=== PATIENT | female | born 1945 | race Caucasian/White ===

== ENCOUNTER 2018-05-06 02:11 | Outpatient (CLI) | payer MEDICARE, BC, SELFPAY ==
[2018-05-06 10:44] LABS: HGB 12.7 g/dL (12.0-15.5); Mean Corp. HGB Concentration 32.6 g/dL (32.0-36.0); Mean Corpuscular Hemoglobin 30.4 pg (27.0-33.0); Mean Corpuscular Volume 93.3 fL (80-95); Mean Platelet Volume 9.7 fL (8.0-11.0); Platelet Count 253 x1000/uL (130-400); RBC 4.18 m/cumm (4.00-5.20); RBC Distribution Width 15.3 % (11.7-14.6)
[2018-05-06 11:05] LABS: Microalb ug/mg Crea 9.5 ug/mg Cr
[2018-05-06 11:45] LABS: ALT 32 U/L (12-78); AST 19 U/L (15-37); Alkaline Phosphatase 51 U/L (46-116); Anion Gap 9.2 mmol/L (3-11); BUN 16 mg/dL (7-18); Bilirubin, Total 0.4 mg/dL (0.2-1.0); CO2 29.8 mmol/L (21.0-32.0); Calcium 9.3 mg/dL (8.5-10.1); Chloride 102 mmol/L (98-107); Cholesterol 166 mg/dL (50-200); Glucose 95 mg/dL (70-100); HDL Cholesterol 50 mg/dL (40-60); LDL CHOLESTEROL 95 mg/dL (<100); Magnesium 1.9 mg/dL (1.8-2.4); Sodium 141 mmol/L (136-145); TSH (W/Ref FT4) 1.53 uIU/mL (0.358-3.74); Total Protein 6.9 g/dL (6.4-8.2); Triglyceride 138 mg/dL (30-150)
== END 2018-05-06 02:31 ==
PROVIDERS: PCP Family Medicine; Visit Provider Family Medicine
DX: D64.9 Anemia, unspecified (principal); E03.9 Hypothyroidism, unspecified; E11.9 Type 2 diabetes mellitus without complications; D75.1 Secondary polycythemia; I25.10 Atherosclerotic heart disease of native coronary artery without angina pectoris
CPT/HCPCS: 36415; 80053; 80061; 83721; 85027; 82043; 82570; 83036; 83735; 84443

== ENCOUNTER 2018-05-14 00:24 | Outpatient (CLI) | payer MEDICARE, BC, SELFPAY ==
--- NOTE | 2018-05-14 09:37 | DI.CT_ITS ---
SYMPTOM/DIAGNOSIS: ? ABD ABSCESS,LLQ, H/O ENDOMETRIAL CA, C54.[address]: CT scan of the abdomen and pelvis was performed following the uneventful administration of intravenous contrast material. The visualized lung bases show no acute abnormality. The liver, spleen, pancreas, gallbladder, bile ducts and adrenal glands are unremarkable. The kidneys show normal and symmetric enhancement. No suspicious solid renal mass or obstruction is seen. The urinary bladder is intact. The patient appears to be status post hysterectomy. The aorta is of normal caliber. No significant abdominal or pelvic adenopathy, ascites or pneumoperitoneum is seen. The bowel shows no evidence of obstruction or inflammation. No findings to suggest an acute appendicitis are present. Degenerative changes are seen in the spine. IMPRESSION: No acute abnormality.
[2018-05-14] MEDS: Omnipaque 350 MG/ML 50 ML BTL PO (11:17)
[2018-05-14] MEDS: Omnipaque 350 MG/ML 100 ML BTL IJ (11:17)
[2018-05-14] MEDS: Breeza Beverage 473 ML BTL PO ×2 (11:17→11:18)
--- NOTE | 2018-05-14 15:42 | DI.VRAD_ITS ---
EXAM: CT Abdomen and Pelvis With Contrast EXAM DATE/TIME: 05/14/2018 11:18 AM CLINICAL HISTORY: 72 years old, female; Signs and symptoms; Other: ? Abdomen abscess llq; Additional info: Oral and iv contrast. Biphasic protocol TECHNIQUE: Axial computed tomography images of the abdomen and pelvis with intravenous contrast. Coronal and sagittal reformatted images were created and reviewed. CONTRAST: 100 ml of omnipaque 350 administered intravenously. COMPARISON: No relevant prior studies available. FINDINGS: Lower thorax: Lung bases are clear. ABDOMEN: Liver: Normal. No mass. Gallbladder and bile ducts: Normal. No calcified stones. No ductal dilation. Pancreas: Normal. No ductal dilation. Spleen: Normal. No splenomegaly. Adrenals: Normal. No mass. Kidneys and ureters: Normal. No hydronephrosis. Stomach and bowel: Normal. No obstruction. No mucosal thickening. Appendix: No evidence of appendicitis. PELVIS: Bladder: Unremarkable as visualized. Reproductive: Unremarkable as visualized. ABDOMEN and PELVIS: Intraperitoneal space: Normal. No free air. No significant fluid collection. Bones/joints: No acute fracture. No dislocation. Soft tissues: Unremarkable. Vasculature: Atherosclerosis. Lymph nodes: Normal. No enlarged lymph nodes. IMPRESSION: No acute findings. Dictated and Authenticated by: Dayday Carter MD. Ordering:JeanieDOMiriJ Bry Prado MD
== END 2018-05-14 00:44 ==
PROVIDERS: PCP Family Medicine; Visit Provider Family Medicine
DX: C54.1 Malignant neoplasm of endometrium (principal); R10.32 Left lower quadrant pain
CPT/HCPCS: 74177; J3490; Q9967

== ENCOUNTER 2018-07-16 21:27 | Outpatient (REF) | payer MEDICARE, BC, SELFPAY ==
[2018-07-16 19:22] LABS: Bilirubin Negative (Negative); Blood Small (Negative); Clarity Clear; Glucose Negative (Negative); Ketones Negative (Negative); Leukocyte Esterase Trace (Negative); Nitrite Negative (Negative); Urobilinogen 0.2 EU/dL (Up TO 0.2)
[2018-07-16 19:29] LABS: Bacteria Negative HPF (Negative); C & S Indicated? Yes; Casts Negative LPF (Negative); Crystals Negative HPF (Negative); Epithelial Cells Negative HPF (Negative); Mucus Negative (Negative); Other Cells Few Renal (Negative)
== END 2018-07-16 21:47 ==
LOC: LBN 21:27
PROVIDERS: PCP Family Medicine; Visit Provider Family Medicine
DX: M54.5 Low back pain (principal)
CPT/HCPCS: 81003; 81015; 87086

== ENCOUNTER 2018-12-28 12:26 | Outpatient (CLI) | payer MEDICARE, BC, SELFPAY ==
--- NOTE | 2018-12-28 14:00 | DI.RAD_ITS ---
SYMPTOMS/DIAGNOSIS: COUGH, R05 PA AND LATERAL CHEST: The heart is not enlarged. There is minimal lingular scarring, unchanged from previous examinations. No pleural effusions seen. The lungs otherwise clear. CONCLUSION: No evidence of acute disease.
== END 2018-12-28 12:46 ==
PROVIDERS: PCP Family Medicine; Visit Provider Family Medicine
DX: R05 Cough (principal)
CPT/HCPCS: 71046

== ENCOUNTER 2019-02-24 21:06 | Outpatient (REF) | payer MEDICARE, BC, SELFPAY | END 2019-02-24 21:26 | LOC: LBN 21:06 | PROVIDERS: PCP Family Medicine; Visit Provider Family Medicine | DX: R05 Cough (principal) | CPT/HCPCS: 87070; 87205 ==

== ENCOUNTER 2019-05-06 00:52 | Outpatient (CLI) | payer MEDICARE, BC, SELFPAY ==
--- NOTE | 2019-05-06 12:32 | DI.CT_ITS ---
EXAM: CT SINUS WO CLINICAL HISTORY: chronic sinusitis J32.9 TECHNIQUE: Noncontrast COMPARISON: No exams were available for comparison FINDINGS: There is mild mucous retention at the floor of the left maxillary sinus. There is minimal mucosal th ickening at the floor of the right maxillary sinus. A small mucous retention cyst or polyp is seen a t the roof of the right maxillary sinus. There is a small amount of mucous retention within the left sphenoid sinus. The frontal and ethmoid sinuses and nasal cavity appear clear. No bony destruction is seen. The orbits are unremarkable. Mastoid air cells appear clear. No gross abnormalities seen in the brain. IMPRESSION: Mild chronic sinus disease.
== END 2019-05-06 01:12 ==
PROVIDERS: PCP Family Medicine; Visit Provider Family Medicine
DX: J32.9 Chronic sinusitis, unspecified (principal)
CPT/HCPCS: 70486

== ENCOUNTER 2019-05-20 01:10 | Outpatient (CLI) | payer MEDICARE, BC, SELFPAY ==
[2019-05-20 12:31] LABS: ALT 29 U/L (14-59); AST 15 U/L (15-37); Albumin 3.8 g/dL (3.4-5.0); Alkaline Phosphatase 48 U/L (46-116); Anion Gap 7.6 mmol/L (3-11); BUN 11 mg/dL (7-18); Bilirubin, Total 0.4 mg/dL (0.2-1.0); CO2 30.4 mmol/L (21.0-32.0); CREATININE 0.69 mg/dL (0.55-1.02); Calcium 8.9 mg/dL (8.5-10.1); Calculated LDL 84 mg/dL (<100); Chloride 105 mmol/L (98-107); Cholesterol 155 mg/dL (<200); Glucose 102 mg/dL (74-106); HDL Cholesterol 43 mg/dL (40-60); Potassium 3.7 mmol/L (3.5-5.1); Sodium 143 mmol/L (136-145); TSH (W/Ref FT4) 2.21 uIU/mL (0.36-3.74); Total Protein 6.3 g/dL (6.4-8.2); Triglyceride 143 mg/dL (<150)
[2019-05-20 12:32] LABS: Hemoglobin A1C 6.1 % (3.8-5.6)
== END 2019-05-20 01:30 ==
PROVIDERS: PCP Family Medicine; Visit Provider Physician Assistant
DX: C54.1 Malignant neoplasm of endometrium (principal); E03.9 Hypothyroidism, unspecified; E11.9 Type 2 diabetes mellitus without complications; E78.5 Hyperlipidemia, unspecified; I10 Essential (primary) hypertension; L40.9 Psoriasis, unspecified; Z01.30 Encounter for examination of blood pressure without abnormal findings
CPT/HCPCS: 36415; 80053; 80061; 83036; 84443

== ENCOUNTER 2019-11-12 08:47 | Outpatient (CLI) | payer MEDICARE, BC, SELFPAY ==
[2019-11-12 12:46] LABS: Hemoglobin A1C 5.7 % (3.8-5.6)
== END 2019-11-12 09:07 ==
PROVIDERS: PCP Family Medicine; Visit Provider Family Medicine
DX: E11.9 Type 2 diabetes mellitus without complications (principal)
CPT/HCPCS: 36415; 83036

== ENCOUNTER 2020-05-02 14:40 | Outpatient (REF) | payer MEDICARE, BC, SELFPAY ==
[2020-05-02 15:59] LABS: Bilirubin Negative (Negative); Blood Negative (Negative); Clarity Clear (Clear); Glucose Negative (Negative); Ketones Negative (Negative); Leukocyte Esterase Negative (Negative); Nitrite Negative (Negative); Urobilinogen 0.2 EU/dL (Up TO 0.2); pH 7.5 (5-8)
== END 2020-05-02 15:00 ==
LOC: LBO 14:40
PROVIDERS: PCP Family Medicine; Visit Provider Physician Assistant
DX: R31.9 Hematuria, unspecified (principal); N93.9 Abnormal uterine and vaginal bleeding, unspecified
CPT/HCPCS: 81003

== ENCOUNTER 2020-05-05 13:47 | Emergency (ER) | payer MEDICARE, BC, SELFPAY ==
[2020-05-05] VITALS (17 sets, daily range): BP systolic 120–153; BP diastolic 50–80; PULSE 61–88; RESP 13–24; TEMP 36.7–37.1; O2SAT 95–100
--- NOTE | 2020-05-05 13:45 | RT.EKG_ITS ---
APPROVED REPORT Exam: Resting ECG Patient Location: E HR:80 bpm ECG Measurements Heart Rate 80 AXIS GA 193 P 10 QRSd 98 QRS -32 QT 396 T 73 QTc 458 Conclusion Sinus rhythm. LVH with secondary repolarization abnormality
--- NOTE | 2020-05-05 14:15 | DI.RAD_ITS ---
EXAM: XR PORTABLE CHEST AP CLINICAL HISTORY: dizzy. TECHNIQUE: 2D digital imaging was performed. COMPARISON: CR XR CHEST 2V PA LATERAL from 12/28/2018 FINDINGS: Heart size is normal. The mediastinum is not widened. Lungs are clear. No infiltrates nor obvious pleural effusions. Chest leads in place. IMPRESSION: No acute pulmonary findings on this single AP portable view of the chest. DATA REPOSITORY: RADIATION DOSE DELIVERED:
[2020-05-05 14:31] LABS: Abs Immature Grans 0.03 10^3/uL (0.0-0.06); Absolute Basophil Count 0.03 10^3/uL (0.0-0.2); Absolute Eosinophil Count 0.17 10^3/uL (0.0-0.7); Absolute Monocyte Count 0.72 10^3/uL (0.1-0.8); Absolute Neutrophil Count 5.59 10^3/uL (1.2-6.7); Basophils % 0.3; Eosinophils % 1.9; HCT 37.5 % (36.0-46.0); HGB 12.1 g/dL (11.2-15.7); Immature Grans % 0.3; Lymphocytes % 25.2; MCH 30.3 pg (27.0-33.0); MCHC 32.3 % (32.0-36.0); MCV 93.8 fL (80-95); MPV 9.5 fL (8.0-11.0); Monocytes % 8.2; Neutrophils % 64.1; Nucleated RBC 0 %; Platelet Count 275 10^3/uL (130-400); RDW 14.7 % (11.7-14.6); RDW-SD 51.2 fL; WBC 8.74 10^3/uL (4.4-10.8)
--- NOTE | 2020-05-05 14:35 | ED.GENADUL_ITS ---
Discharge Plan Disposition Patient Disposition: AGAINST MEDICAL ADVICE Condition: Stable Discharge Details Clinical Impression: Headache, Acute hypokalemia Primary Care Provider: Eve Londono ED Provider: Lesa Thurman Home Meds and New Rx's Prescriptions: New potassium chloride 20 mEq packet 20 meq PO DAILY Qty: 30 RF: 0 potassium chloride 20 mEq tablet extended release 20 meq PO DAILY Qty: 10 RF: 0 No Action losartan 100 mg tablet 100 mg PO DAILY Qty: 90 RF: 4 fexofenadine [Preeti] 180 MG tablet 180 mg PO DAILY Qty: 90 RF: 4 acetaminophen [Tylenol Extra Strength] 500 MG tablet 1 tab PO DAILY PRNRF: 0 CPAP Each RF: 0 cyanocobalamin (vitamin B-12) [Vitamin B-12] 1,000 MCG tablet 1,000 mcg PO DAILY RF: 0 hydrocortisone valerate 45 GM cream 1 applic Topical BID prn Qty: 15 RF: 4 magnesium oxide 250 MG tablet 250 mg PO DAILY RF: 0 folic acid 0.4 MG tablet 0.4 mg PO DAILY RF: 0 Fiber Laxative (methylcellulo) 500 MG tablet 500 mg PO DAILY RF: 0 docusate sodium [Colace] 100 MG capsule 200 mg PO DAILY RF: 0 mupirocin calcium [Bactroban] 15 GM cream 15 gm Topical PRNRF: 0 FLUOCINONIDE 0.05% OINT 30 GM OINT...G. 1 applic Topical PRNRF: 0 nystatin-triamcinolone 100,000-0.1 unit/gram-% ointment 1 applic Topical BID prn Qty: 60 RF: 1 amlodipine 5 mg tablet 5 mg PO DAILY Qty: 90 RF: 4 hydrochlorothiazide 25 mg tablet 25 mg PO DAILY Qty: 90 RF: 4 simvastatin [Zocor] 20 mg tablet 20 mg PO QPM Qty: 90 RF: 4 fluticasone propionate 50 mcg/actuation spray,suspension 2 spray NS DAILY Qty: 1 RF: 3 levothyroxine [Synthroid] 25 mcg tablet 25 mcg PO DAILY Qty: 90 RF: 11 polyethylene glycol 3350 [Miralax] 17 GM powder in packet 1 packet PO Q48H PRNRF: 0 selenium 200 mcg Tablet 200 mcg PO DAILY RF: 0 megestrol 40 mg tablet 40 mg PO QID RF: 0 cholecalciferol (vitamin D3) [Vitamin D3] 10 mcg (400 unit) Tablet 10 mcg PO DAILY RF: 0 potassium gluconate 600 mg (99 mg) Tablet 600 mg PO DAILY RF: 0 Discharge Instructions Instructions: Hypokalemia (ED), General Headache (ED) Additional Instructions: You are leaving against our recommendation, my recommendation is that you follow-up with your primary care physician tomorrow and return earlier should he have return of symptoms or at your earliest ability You have not been fully evaluated in the emergency room Please take the potassium as prescribed and follow-up with your doctor regarding your low potassium levels, talk to your doctor also about the hydrochlorothiazide as it may be contributing to this I recommend you be reevaluated at your earliest convenience and return earlier should you have return or worsening complaints Medical Decision Making Unfortunately patient had a prolonged stay in the emergency room and her IV was unusual, several attempts were made to reinitiate peripheral line status, however patient declined any further intervention, she is aware that we cannot completely evaluate her headache and vision change, specifically we chatted about possible tumor, stroke, dissection, and other life-threatening pathologies that we are unable to rule out this time Patient is completely alert, oriented, of decisional capacity, quite pleasant in demeanor and states she will return immediately for reevaluation should her symptoms return or worsen She will follow up with her doctor tomorrow Given very low threshold to return to the emergency room Her potassium was supplemented with 2.9 mEq EKG does not show acute pathology She received 10 mEq of potassium and 40 mEq of p.o. potassium She was also given supplementation for home She is discharged home alert, oriented, of decision capacity, remainder of her diagnostic labs not show abnormality on her chest x-ray is clear per radiology interpretation I reviewed Lab Data Lab results reviewed: Yes I reviewed the patient's lab results. 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 Sharp headache which presented abruptly and resolved. Patient states she has had a few episodes in the past week. One was approximately 1 week ago by an episode that was similar but slightly worse today. She states the episode occurred approximately 145 and lasted about 5 minutes headache. She states that it presents as a crescendo pattern followed by blurred vision. She denies any strength or sensation changes or speech changes associated. She denies known history of cluster headaches or any sort of migraine variant. She denies any risk of carbon monoxide. She denies any dizziness or weakness. She did feel slightly nauseated when the episode occurred. She is completely asymptomatic at this time has been asymptomatic catheter now. She denies any fever or chills. She denies any cough, chest pain, shortness of breath. She denies any urinary component to her symptoms. She denies any new medications Bactrim negative but she resumed yesterday evening. She has history of TIA or CVA known to her. Denies known active cancer or metastases. General Date/Time Provider Initiated Documentation: 05/05/20 13:47 . Related Data Home Medications Medication Instructions Recorded Confirmed acetaminophen [Tylenol Extra 1 tab PO DAILY PRN 07/30/12 05/05/20 Strength] fexofenadine [Preeti] 180 mg PO DAILY #90 07/30/12 05/05/20 cyanocobalamin (vitamin B-12) 1,000 mcg PO DAILY 08/06/13 05/05/20 [Vitamin B-12] hydrocortisone valerate 1 applic TOPICAL BID prn #15 gm 08/16/14 05/05/20 magnesium oxide 250 mg PO DAILY 08/18/15 05/05/20 Fiber Laxative (methylcellulo) 500 mg PO DAILY 08/19/16 05/05/20 docusate sodium [Colace] 200 mg PO DAILY tab-cap 08/19/16 05/05/20 folic acid 0.4 mg PO DAILY tab-cap 08/19/16 05/05/20 polyethylene glycol 3350 [Miralax] 1 packet PO Q48H PRN 09/24/17 05/05/20 Fluocinonide 0.05% Oint 1 applic TOPICAL PRN gm 09/25/17 11/18/19 mupirocin calcium [Bactroban 2% 15 gm TOPICAL PRN 09/25/17 11/18/19 Cream] nystatin-triamcinolone 100,000 1 applic TOPICAL BID prn #60 gm 07/02/18 05/05/20 unit/gram-0.1 % topical ointment amlodipine 5 mg tablet 5 mg PO DAILY #90 tab 06/15/19 05/05/20 hydrochlorothiazide 25 mg tablet 25 mg PO DAILY #90 tab 07/05/19 05/05/20 simvastatin 20 mg tablet 20 mg PO QPM #90 tab-cap 07/05/19 05/05/20 fluticasone propionate 50 2 spray NS DAILY #1 ml 11/04/19 05/05/20 mcg/actuation nasal spray,suspension losartan 100 mg tablet 100 mg PO DAILY #90 tab 11/18/19 05/05/20 levothyroxine 25 mcg tablet 25 mcg PO DAILY #90 tab-cap 02/07/20 05/05/20 cholecalciferol (vitamin D3) 10 mcg PO DAILY 05/05/20 05/05/20 [Vitamin D3] megestrol 40 mg PO QID 05/05/20 05/05/20 potassium chloride 20 meq PO DAILY #10 tab 05/05/20 potassium chloride 20 meq PO DAILY #30 ea NS 05/05/20 potassium gluconate 600 mg PO DAILY 05/05/20 05/05/20 selenium 200 mcg PO DAILY 05/05/20 05/05/20 Previous Rx's Medication Instructions Recorded nystatin-triamcinolone 100,000 1 applic TOPICAL BID prn #60 gm 07/02/18 unit/gram-0.1 % topical ointment amlodipine 5 mg tablet 5 mg PO DAILY #90 tab 06/15/19 hydrochlorothiazide 25 mg tablet 25 mg PO DAILY #90 tab 07/05/19 simvastatin 20 mg tablet 20 mg PO QPM #90 tab-cap 07/05/19 fluticasone propionate 50 2 spray NS DAILY #1 ml 11/04/19 mcg/actuation nasal spray,suspension losartan 100 mg tablet 100 mg PO DAILY #90 tab 11/18/19 levothyroxine 25 mcg tablet 25 mcg PO DAILY #90 tab-cap 02/07/20 potassium chloride 20 meq PO DAILY #10 tab 05/05/20 potassium chloride 20 meq PO DAILY #30 ea NS 05/05/20 Allergies Allergy/AdvReac Type Severity Reaction Status Date / Time aspirin Allergy Severe HIVES Verified 11/18/19 14:26 NSAIDS (Non-Steroidal Allergy Severe HIVES Verified 11/18/19 14:26 Anti-Inflamma latex Allergy Intermediate redness Verified 11/18/19 14:26 enalapril AdvReac Severe SEVERE LEG Verified 11/18/19 14:26 PAIN lisinopril AdvReac cough Verified 11/18/19 14:26 General Stated Complaint: Dizzy/Sync RAYRAY: 2 Review of Systems Narrative: Review of systems negative x7 and negative specifically for acute headache, strength or sensation changes, vision abnormality, chest pain, nausea, vomiting All systems reviewed & are unremarkable except as noted in HPI and below PFSH Medical History (Updated 05/05/20 @ 17:57 by SUJEY Krishnamurthy) Abdominal abscess (07/29/16) Abnormal mammogram of right breast 09/04/15 cat3, [place] [facility] [place] meniscal injury of right knee (03/13/17) Colon polyp (07/12/02) adenomas polyps Elevated blood sugar level 08/19/16 Endometrial cancer, grade I (07/09/16) hysterectomy planned fro 07/15 at [facility] 07/16/16 S/P HYSTERECTOMY Essential hypertension (07/27/13) Hyperglycemia (08/19/16) Hyperlipidemia (07/31/12) Hypothyroidism (07/31/12) Migraine Migraine Obesity (08/12/14) Obstructive sleep apnea syndrome (07/30/11) uses CPAP Psoriasis UTI (urinary tract infection) Vitamin B 12 deficiency (08/03/14) Surgical History (Updated 11/16/18 @ 13:40 by Eve Londono MD, [place]) Appendectomy (~1982) Bilateral salpingectomy with oophorectomy (07/16/16) [facility] cystectomy (~1987) uterine History of bilateral ligation of fallopian tubes History of bilateral tubal ligation 04/21/82 Hysterectomy, Laproscopic (07/16/16) [facility] Ligation of fallopian tube (~1982) S/P appendectomy 04/21/82 Status post appendectomy Uterine fibroids removed (~1987) Family History (Updated 11/22/19 @ 13:32 by Jenna Guerrero) Mother , 76 Essential hypertension Heart disease Hyperlipidemia Myocardial infarction Father , 96 Essential hypertension Heart disease Hyperlipidemia Stroke Sister Essential hypertension Heart disease Stroke Brother , 59 Essential hypertension Heart disease Hyperlipidemia Brain cancer Brother Diabetes Essential hypertension Hyperlipidemia Brother Essential hypertension Brother Essential hypertension Hyperlipidemia Maternal Grandfather , 93 Heart disease Paternal Grandfather , 81 Essential hypertension Heart disease Maternal Grandmother , 54 Rheumatoid arthritis Paternal Grandmother , 80 Heart disease Social History (Updated 11/22/19 @ 13:29 by Jenna Guerrero) Smoking/Tobacco Use Status: Former Tobacco Use Quit Date: 04/21/78 Second Hand Exposure: Yes Smoking risk assessment performed?: Yes Alcohol Intake: current Alcohol Intake frequency: holidays/special occasions only Alcohol type: beer Drug use: Never Substance use type: does not use Caregiver/Support person: No Household members: spouse and children Housing: house Communication Needs: Hard of Hearing Do you need help understanding health information?: Never Pets and animals: No Sexually active: No Current gender identity: female and decline to answer What is your relationship status?: How often do you talk on the phone with friends or family?: decline to answer How often do you get together with friends or relatives?: decline to answer How often do you attend yazdanism or caodaism services?: decline to answer Do you belong to any clubs or organized social groups?: decline to answer Panel score (0-1 are the most socially isolated patients): 1 What type of physical activity do you participate in: none Porsche/Zoroastrianism: No preference Special porsche needs: No Seatbelt use: always Drive intox or ride w/intox 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: No Do you feel safe in your relationship?: Yes Exam Const General: healthy appearing and no acute distress Limitations: mental status not altered [facility] Head: normal to inspection Eyes General: appearance normal, both eyes and all related structures Pupils: PERRL EOM: EOM intact bilaterally Chest Chest: normal inspection of the chest Resp Effort & Inspection: normal respiratory effort Cardio Rate: regular rate Rhythm: regular rhythm GI Inspection: normal to inspection Other: Nontender Neuro General: patient alert, patient awake and patient oriented x3 Cranial Nerves: CN's II-XI intact bilaterally and PERRL Cognition: normal cognition Speech: speech normal Gait: normal gait Motor: strength 5/5 throughout Sensory Exam: no sensory deficits noted DTR's: Rt Biceps: 2+, Lt Biceps: 2+, Rt Patellar: 2+ and Lt Patellar: 2+ Coordination: [id number] test normal Pupils: Normal pupillary reactivity/response: bilateral Other: Negative pronator drift Course Vital Signs Vital signs: Vital Signs Temperature 37.1 C 05/05/20 13:55 Pulse 82 05/05/20 13:55 Respiratory Rate 17 05/05/20 13:55 Blood Pressure 153/57 H 05/05/20 13:55 Pulse Oximetry 99 05/05/20 13:55 Temperature 37.1 C 05/05/20 13:55 Temperature Source Skin 05/05/20 13:55 Pulse 82 05/05/20 13:55 Respiratory Rate 17 05/05/20 13:55 Respiratory Effort Non-Labored 05/05/20 14:28 Blood Pressure 153/57 H 05/05/20 13:55 Blood Pressure Position Sitting 05/05/20 13:55 Pulse Oximetry 99 05/05/20 13:55 Oxygen Delivery Method Room Air 05/05/20 13:55 Oxygen Flow Rate 0 05/05/20 13:55 Pain Level 0 05/05/20 13:55
[2020-05-05 14:49] LABS: ALT 37 U/L (14-59); AST 19 U/L (15-37); Albumin 4.2 g/dL (3.4-5.0); Alkaline Phosphatase 63 U/L (46-116); Anion Gap 8.8 mmol/L (3-11); BUN 13 mg/dL (7-18); Bilirubin, Total 0.4 mg/dL (0.2-1.0); CO2 28.2 mmol/L (21.0-32.0); CREATININE 0.84 mg/dL (0.55-1.02); Calcium 9.4 mg/dL (8.5-10.1); Chloride 102 mmol/L (98-107); Glucose 95 mg/dL (74-106); Magnesium 2.1 mg/dL (1.8-2.4); Sodium 139 mmol/L (136-145); TSH 1.76 uIU/mL (0.36-3.74); Total Protein 7.7 g/dL (6.4-8.2)
[2020-05-05 14:50] LABS: Potassium 2.9 mmol/L (3.5-5.1); Troponin I < 0.05 ng/mL (<0.06)
[2020-05-05] MEDS: Potassium Chloride 20 MEQ TABCR 40 MEQ PO (15:22)
--- NOTE | 2020-05-05 16:36 | DI.VRAD_ITS ---
PROCEDURE INFORMATION: Exam: XR Chest, 1 View Exam date and time: 05/05/2020 4:26 PM Age: 74 years old Clinical indication: Other: Dizzy TECHNIQUE: Imaging protocol: XR of the chest Views: 1 view. COMPARISON: CR XR CHEST 2V PA LATERAL 12/28/2018 1:48 PM FINDINGS: Tubes, catheters and devices: Overlying EKG wires Lungs: Unremarkable. No consolidation. Pleural space: Unremarkable. No pleural effusion. No pneumothorax. Heart/Mediastinum: Unremarkable. No cardiomegaly. Bones/joints: Unremarkable. IMPRESSION: No acute process Dictated and Authenticated by: Miko Owens MD. Ordering:MATTHEW Mcfadden MD
== END 2020-05-05 18:15 | disposition left against medical advice (07) ==
PROVIDERS: Emergency Provider Physician Assistant; PCP Family Medicine
DX: E87.6 Hypokalemia (principal); R51.9 Headache, unspecified; Z53.29 Procedure and treatment not carried out because of patient's decision for other reasons; I10 Essential (primary) hypertension
CPT/HCPCS: 36415; 80053; 93005; 99285; 71045; 83735; 84443; 84484; 85025; 93010; 99284

== ENCOUNTER 2020-05-26 01:17 | Outpatient (CLI) | payer MEDICARE, BC, SELFPAY ==
[2020-05-26 12:20] LABS: Anion Gap 14.3 mmol/L (3-11); BUN 13 mg/dL (7-18); CO2 24.7 mmol/L (21.0-32.0); CREATININE 0.8 mg/dL (0.55-1.02); Calcium 9.5 mg/dL (8.5-10.1); Chloride 102 mmol/L (98-107); Glucose 85 mg/dL (74-106); Potassium 3.5 mmol/L (3.5-5.1); Sodium 141 mmol/L (136-145)
[2020-05-26 12:52] LABS: Vitamin D 25 Total 29.4 ng/ml (30-100)
== END 2020-05-26 01:18 | disposition home or self-care (01) ==
LOC: LBO 01:18
PROVIDERS: PCP Family Medicine; Visit Provider Family Medicine
DX: E87.6 Hypokalemia (principal); E55.9 Vitamin D deficiency, unspecified
CPT/HCPCS: 36415; 80048; 82306

== ENCOUNTER 2020-08-14 04:26 | Outpatient (CLI) | payer MEDICARE, BC, SELFPAY ==
[2020-08-14 13:49] LABS: Anion Gap 11.1 mmol/L (3-11); BUN 14 mg/dL (7-18); CO2 26.9 mmol/L (21.0-32.0); CREATININE 0.9 mg/dL (0.55-1.02); Calcium 9.6 mg/dL (8.5-10.1); Chloride 104 mmol/L (98-107); Glucose 82 mg/dL (74-106); Sodium 142 mmol/L (136-145)
== END 2020-08-14 04:27 | disposition home or self-care (01) ==
LOC: LBO 04:26
PROVIDERS: PCP Family Medicine; Visit Provider Family Medicine
DX: I10 Essential (primary) hypertension (principal)
CPT/HCPCS: 36415; 80048

== ENCOUNTER 2020-10-02 12:12 | Outpatient (REF) | payer MEDICARE, BC, SELFPAY ==
[2020-10-02 12:50] LABS: Bilirubin Negative (Negative); Blood Negative (Negative); Clarity Clear (Clear); Glucose Negative (Negative); Ketones Negative (Negative); Leukocyte Esterase Negative (Negative); Nitrite Negative (Negative); Urobilinogen 0.2 EU/dL (Up TO 0.2)
== END 2020-10-02 12:13 | disposition home or self-care (01) ==
LOC: LBN 12:12
PROVIDERS: PCP Family Medicine; Visit Provider Physician Assistant
DX: R30.0 Dysuria (principal)
CPT/HCPCS: 81003

== ENCOUNTER 2020-10-10 19:25 | Outpatient (REF) | payer MEDICARE, BC, SELFPAY ==
[2020-10-10 21:10] LABS: Abs Immature Grans 0.04 10^3/uL (0.0-0.06); Absolute Basophil Count 0.06 10^3/uL (0.0-0.2); Absolute Eosinophil Count 0.17 10^3/uL (0.0-0.7); Absolute Lymphocyte Count 2.58 10^3/uL (1.2-3.4); Absolute Monocyte Count 0.78 10^3/uL (0.1-0.8); Absolute Neutrophil Count 6.44 10^3/uL (1.2-6.7); Basophils % 0.6; Eosinophils % 1.7; HCT 40.2 % (36.0-46.0); HGB 12.9 g/dL (11.2-15.7); Immature Grans % 0.4; Lymphocytes % 25.6; MCH 30.5 pg (27.0-33.0); MCHC 32.1 % (32.0-36.0); Monocytes % 7.7; Nucleated RBC 0 %; Platelet Count 350 10^3/uL (130-400); RBC 4.23 10^6/uL (3.93-5.22); RDW 14.6 % (11.7-14.6); RDW-SD 51.3 fL; WBC 10.07 10^3/uL (4.4-10.8)
[2020-10-10 21:39] LABS: D-Dimer 516 ng/mlFEU (<500)
== END 2020-10-10 19:26 | disposition home or self-care (01) ==
LOC: LBN 19:25
PROVIDERS: PCP Family Medicine; Visit Provider Nurse Practitioner Family
DX: M79.605 Pain in left leg (principal); E53.8 Deficiency of other specified B group vitamins
CPT/HCPCS: 85025; 85379

== ENCOUNTER 2020-10-11 10:17 | Emergency (ER) | payer MEDICARE, BC, SELFPAY ==
[2020-10-11] VITALS (14 sets, daily range): BP systolic 120–175; BP diastolic 66–100; PULSE 75–111; RESP 15–21; TEMP 36.5–36.7; O2SAT 96–98
--- NOTE | 2020-10-11 10:18 | ED.GENADUL_ITS ---
Discharge Plan Disposition Patient Disposition: HOME Condition: Stable Discharge Details Clinical Impression: Left knee pain Primary Care Provider: Eve Londono ED Provider: Rayna Larry Home Meds and New Rx's Prescriptions: Continued losartan 100 mg tablet 100 mg PO DAILY Qty: 90 RF: 4 fexofenadine [Preeti] 180 MG tablet 180 mg PO DAILY Qty: 90 RF: 4 acetaminophen [Tylenol Extra Strength] 500 MG tablet 1 tab PO DAILY PRNRF: 0 CPAP Each RF: 0 cyanocobalamin (vitamin B-12) [Vitamin B-12] 1,000 MCG tablet 1,000 mcg PO DAILY RF: 0 hydrocortisone valerate 45 GM cream 1 applic Topical BID prn Qty: 15 RF: 4 magnesium oxide 250 MG tablet 250 mg PO DAILY RF: 0 folic acid 0.4 MG tablet 0.4 mg PO DAILY RF: 0 Fiber Laxative (methylcellulo) 500 MG tablet 500 mg PO DAILY RF: 0 docusate sodium [Colace] 100 MG capsule 200 mg PO DAILY RF: 0 mupirocin calcium [Bactroban] 15 GM cream 15 gm Topical PRNRF: 0 FLUOCINONIDE 0.05% OINT 30 GM OINT...G. 1 applic Topical PRNRF: 0 nystatin-triamcinolone 100,000-0.1 unit/gram-% ointment 1 applic Topical BID prn Qty: 60 RF: 1 fluticasone propionate 50 mcg/actuation spray,suspension 2 spray NS DAILY Qty: 1 RF: 3 levothyroxine [Synthroid] 25 mcg tablet 25 mcg PO DAILY Qty: 90 RF: 11 amlodipine 10 mg tablet 10 mg PO DAILY Qty: 90 RF: 4 potassium chloride 20 mEq tablet extended release 20 meq PO BID Qty: 180 RF: 4 hydrochlorothiazide 25 mg tablet 25 mg PO DAILY Qty: 90 RF: 4 simvastatin [Zocor] 20 mg tablet 20 mg PO QPM Qty: 90 RF: 4 polyethylene glycol 3350 [Miralax] 17 GM powder in packet 1 packet PO Q48H PRNRF: 0 selenium 200 mcg Tablet 200 mcg PO DAILY RF: 0 megestrol 40 mg tablet 40 mg PO QID RF: 0 cholecalciferol (vitamin D3) [Vitamin D3] 10 mcg (400 unit) Tablet 10 mcg PO DAILY RF: 0 Discharge Instructions Instructions: Knee Pain (ED) Additional Instructions: Alternate ice and heat to the affected area(s) several times daily for 20 minutes at a time. Take Tylenol as needed directed for pain. 120 [place] Take the oxycodone for pain not relieved with Tylenol. Wear the Ovidio wrap as much as possible. Use your crutches as needed for help with weightbearing when ambulating. Follow-up with your primary care doctor in 1 week. Follow-up with orthopedics if your symptoms do not improve or worsen for consideration for further evaluation. Return to the emergency department with any worsening or new concerning symptoms. Referrals: Gus Singh MD [ [facility] STAFF PHYSICIAN] - Discharge Data Discharge Date/Time-TO BE ENTERED AT DEPARTURE: 10/11/20 15:02 Discharge Physician: Rayna Larry Medical Decision Making 75-year-old female presents with left posterior knee pain for the past week. Pain occurs only with weightbearing or walking. She has tenderness to palpation to her left posterior knee. No ligamentous laxity. No evidence of trauma or cellulitis. She is neurovascularly intact. Differential diagnosis includes knee strain versus effusion, bakers cyst. History and presentation does not appear consistent with dvt but will obtain a leg ultrasound and knee x-ray. A dose of oxycodone was ordered but patient states she drove herself to the ED and cannot get a ride so this was cancelled. Right knee x-ray notes a small joint effusion but no other acute findings. Right leg ultrasound negative for DVT or cyst. Discussed with patient that her symptoms could be due to strain or sprain. She is advised to alternate on the importance of RICE. An Ovidio wrap was placed. She has crutches for home as needed. She was given orthopedic follow-up information if needed. Usual and customary return precautions given prior to discharge. Medical Records Medical records reviewed: Yes I reviewed the patient's medical records. Imaging Data Radiologic Study: Radiologist's impression: XR KNEE LT 3V AP,LAT,DEENA CLINICAL HISTORY: posterior L knee pain, r/o arthritis. TECHNIQUE: 2D digital imaging was performed. COMPARISON: CR RIGHT KNEE COMPLETE from 03/13/2017 FINDINGS: There is no evidence of acute fracture. There appears to be a small joint effusion. No obvious degenerative changes. No evidence of chondrocalcinosis. No osteophytes. No joint narrowing evident on the weight-bearing view. No significant osseous lesions. IMPRESSION: No significant osseous findings. Small joint effusion. This may signify an internal derangement. US LOWER EXTREMITY VENOUS LT CLINICAL HISTORY: L posterior leg pain TECHNIQUE: Grayscale, color, and doppler imaging of the deep venous system of the left lower extremity was performed. COMPARISON: No exams were available for comparison FINDINGS: There is no evidence of intraluminal thrombus and there is normal compression and augmentation demonstrated within the common femoral vein, femoral vein, and popliteal vein. In the ipsilateral calf the interrogated veins also exhibit normal compression/ augmentation properties. The ipsilateral saphenofemoral junction is patent. IMPRESSION: 1. No evidence of DVT in the left lower extremity. 2. No abnormal fluid collection seen HPI General Mode of arrival: ambulatory . Date/Time Provider Initiated Documentation: 10/11/20 10:18 . Limitations to Documentation: no limitations . Information obtained by: patient . HPI Narrative: Patient is a 75-year-old female with a history of obesity, hypertension, hyperlipidemia, hypothyroidism, migraine and obstructive sleep apnea presents for left posterior knee pain for the past week. Patient states she went for a 3-hour drive just over 1 week ago and states the knee pain developed after that. She denies any known injury. She states the pain is absent at rest and mainly present with weightbearing or walking. She has taken Tylenol for pain without relief. She denies any pain in her left calf, hip or ankle. She was seen in urgent care yesterday and advised to come to the emergency department for ultrasound to rule out DVT. She states she also had back pain last month after cleaning her house for guests arriving but states this back pain has since been resolved and denies any at present. She denies any bowel or bladder incontinence, saddle anesthesia, leg weakness or numbness. Related Data Home Medications Medication Instructions Recorded Confirmed acetaminophen [Tylenol Extra 1 tab PO DAILY PRN 07/30/12 10/11/20 Strength] fexofenadine [Preeti] 180 mg PO DAILY #90 07/30/12 10/11/20 cyanocobalamin (vitamin B-12) 1,000 mcg PO DAILY 08/06/13 10/11/20 [Vitamin B-12] hydrocortisone valerate 1 applic TOPICAL BID prn #15 gm 08/16/14 10/11/20 magnesium oxide 250 mg PO DAILY 08/18/15 10/11/20 Fiber Laxative (methylcellulo) 500 mg PO DAILY 08/19/16 10/11/20 docusate sodium [Colace] 200 mg PO DAILY tab-cap 08/19/16 10/11/20 folic acid 0.4 mg PO DAILY tab-cap 08/19/16 10/11/20 polyethylene glycol 3350 [Miralax] 1 packet PO Q48H PRN 09/24/17 10/11/20 Fluocinonide 0.05% Oint 1 applic TOPICAL PRN gm 09/25/17 10/10/20 mupirocin calcium [Bactroban] 15 gm TOPICAL PRN 09/25/17 10/10/20 nystatin-triamcinolone 100,000 1 applic TOPICAL BID prn #60 gm 07/02/18 10/11/20 unit/gram-0.1 % topical ointment fluticasone propionate 50 2 spray NS DAILY #1 ml 11/04/19 10/11/20 mcg/actuation nasal spray,suspension losartan 100 mg tablet 100 mg PO DAILY #90 tab 11/18/19 10/11/20 levothyroxine 25 mcg tablet 25 mcg PO DAILY #90 tab-cap 02/07/20 10/11/20 cholecalciferol (vitamin D3) 10 mcg PO DAILY 05/05/20 10/11/20 [Vitamin D3] megestrol 40 mg PO QID 05/05/20 10/11/20 selenium 200 mcg PO DAILY 05/05/20 10/11/20 amlodipine 10 mg tablet 10 mg PO DAILY #90 tab 05/10/20 10/11/20 potassium chloride 20 mEq 20 meq PO BID #180 tab 05/10/20 10/11/20 tablet,extended release hydrochlorothiazide 25 mg tablet 25 mg PO DAILY #90 tab 09/26/20 10/11/20 simvastatin 20 mg tablet 20 mg PO QPM #90 tab-cap 09/26/20 10/11/20 Previous Rx's Medication Instructions Recorded nystatin-triamcinolone 100,000 1 applic TOPICAL BID prn #60 gm 07/02/18 unit/gram-0.1 % topical ointment fluticasone propionate 50 2 spray NS DAILY #1 ml 11/04/19 mcg/actuation nasal spray,suspension losartan 100 mg tablet 100 mg PO DAILY #90 tab 11/18/19 levothyroxine 25 mcg tablet 25 mcg PO DAILY #90 tab-cap 02/07/20 amlodipine 10 mg tablet 10 mg PO DAILY #90 tab 05/10/20 potassium chloride 20 mEq 20 meq PO BID #180 tab 05/10/20 tablet,extended release hydrochlorothiazide 25 mg tablet 25 mg PO DAILY #90 tab 09/26/20 simvastatin 20 mg tablet 20 mg PO QPM #90 tab-cap 09/26/20 Allergies Allergy/AdvReac Type Severity Reaction Status Date / Time aspirin Allergy Severe HIVES Verified 10/11/20 10:41 NSAIDS (Non-Steroidal Allergy Severe HIVES Verified 10/11/20 10:41 Anti-Inflamma latex Allergy Intermediate redness Verified 10/11/20 10:41 enalapril AdvReac Severe SEVERE LEG Verified 10/11/20 10:41 PAIN lisinopril AdvReac cough Verified 10/11/20 10:41 General RAYRAY: 2 Review of Systems All systems reviewed & are unremarkable except as noted in HPI and below Constitutional Constitutional: Reports as per HPI, Denies chills and Denies fever(s) Eyes Eyes: Denies blurry vision ENT Ears, Nose, Mouth, and Throat: Denies dizziness, Denies sore throat and Denies throat swelling Cardiovascular Cardiovascular: Denies chest pain and Denies dyspnea Respiratory Respiratory: Denies cough and Denies dyspnea Gastrointestinal Gastrointestinal: Denies abdominal pain, Denies diarrhea and Denies vomiting Genitourinary Genitourinary: Denies hematuria and Denies dysuria Musculoskeletal Musculoskeletal: Denies back pain and Denies numbness Integumentary/Breasts Skin/Breast: Denies lesions and Denies rash Neurologic Neurologic: Denies dizziness, Denies localized weakness and Denies numbness Allergic/Immunologic Allergic/Immunologic: Denies throat swelling [facility] Medical History Abdominal abscess (07/29/16) Abnormal mammogram of right breast 09/04/15 cat3, 6month f/u scheduled at [facility] Acute meniscal injury of right knee (03/13/17) Colon polyp (07/12/02) adenomas polyps Elevated blood sugar level 08/19/16 Endometrial cancer, grade I (07/09/16) hysterectomy planned fro 07/[address] [facility] 07/16/16 S/P HYSTERECTOMY Essential hypertension (07/27/13) Hyperglycemia (08/19/16) Hyperlipidemia (07/31/12) Hypothyroidism (07/31/12) Migraine Migraine Obesity (08/12/14) Obstructive sleep apnea syndrome (07/30/11) uses CPAP Psoriasis UTI (urinary tract infection) Vitamin B 12 deficiency (08/03/14) Surgical History (Updated 11/16/18 @ 13:40 by Eve Londono MD, [place]) Appendectomy (~1982) Bilateral salpingectomy with oophorectomy (07/16/16) [facility] cystectomy (~1987) uterine History of bilateral ligation of fallopian tubes History of bilateral tubal ligation 04/21/82 Hysterectomy, Laproscopic (07/16/16) [facility] Ligation of fallopian tube (~1982) S/P appendectomy 04/21/82 Status post appendectomy Uterine fibroids removed (~1987) Family History (Updated 11/22/19 @ 13:32 by Jenna Guerrero) Mother , 76 Essential hypertension Heart disease Hyperlipidemia Myocardial infarction Father , 96 Essential hypertension Heart disease Hyperlipidemia Stroke Sister Essential hypertension Heart disease Stroke Brother , 59 Essential hypertension Heart disease Hyperlipidemia Brain cancer Brother Diabetes Essential hypertension Hyperlipidemia Brother Essential hypertension Brother Essential hypertension Hyperlipidemia Maternal Grandfather , 93 Heart disease Paternal Grandfather , 81 Essential hypertension Heart disease Maternal Grandmother , 54 Rheumatoid arthritis Paternal Grandmother , 80 Heart disease Social History (Updated 11/22/19 @ 13:29 by Jenna Guerrero) Smoking/Tobacco Use Status: Former Tobacco Use Quit Date: 04/21/78 Second Hand Exposure: Yes Smoking risk assessment performed?: Yes Alcohol Intake: current Alcohol Intake frequency: holidays/special occasions only Alcohol type: beer Drug use: Never Substance use type: does not use Caregiver/Support person: No Household members: spouse and children Housing: house Communication Needs: Hard of Hearing Do you need help understanding health information?: Never Pets and animals: No Sexually active: No Current gender identity: female and decline to answer What is your relationship status?: How often do you talk on the phone with friends or family?: decline to answer How often do you get together with friends or relatives?: decline to answer How often do you attend alevism or confucianist services?: decline to answer Do you belong to any clubs or organized social groups?: decline to answer Panel score (0-1 are the most socially isolated patients): 1 What type of physical activity do you participate in: none Porsche/Holiness: No preference Special porsche needs: No Seatbelt use: always Drive intox or ride w/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: No Do you feel safe at home: Yes Do you feel safe in your relationship?: Yes Exam Const General: cooperative and no acute distress HENMT Head: normal to inspection Face and sinus: normal facial exam Eyes General: appearance normal, both eyes and all related structures EOM: EOM intact bilaterally Neck Neck: normal visual inspection and No submandibular swelling Lymphatic: no lymphadenopathy noted Chest Chest: normal inspection of the chest and no tenderness Resp Effort & Inspection: normal respiratory effort and able to speak in complete sentences Auscultation: clear to auscultation bilaterally Cardio Rate: regular rate Rhythm: regular rhythm GI Inspection: normal to inspection Palpation: soft, not firm, not rigid and nontender Auscultation: normal bowel sounds Skin General skin exam: no rashes or lesions noted Neuro General: patient alert, patient awake and patient oriented x3 Cognition: normal cognition Speech: speech normal Motor: muscle tone normal throughout Sensory Exam: no sensory deficits noted Extrem Other: L lower extremity: Tenderness to palpation to left posterior knee. There is no pain with valgus or varus stress. Negative anterior posterior drawer test. No tenderness palpation of left calf. There is no erythema, edema, ecchymosis, rash or lesions. Left DP/PT pulses intact. Negative Homans' sign. Psych Appearance: grossly normal Mental Status: mental status grossly normal Speech and Movement: speech and movement normal Affect: normal affect
--- NOTE | 2020-10-11 10:30 | DI.US_ITS ---
Exam(s) US LOWER EXTREMITY VENOUS LT EXAM: US LOWER EXTREMITY VENOUS LT CLINICAL HISTORY: L posterior leg pain TECHNIQUE: Grayscale, color, and doppler imaging of the deep venous system of the left lower extremi ty was performed. COMPARISON: No exams were available for comparison FINDINGS: There is no evidence of intraluminal thrombus and there is normal compression and augmentation demons trated within the common femoral vein, femoral vein, and popliteal vein. In the ipsilateral calf the interrogated veins also exhibit normal compression/ augmentation properti es. The ipsilateral saphenofemoral junction is patent. IMPRESSION: 1. No evidence of DVT in the left lower extremity. 2. No abnormal fluid collection seen DATA REPOSITORY:
--- NOTE | 2020-10-11 11:23 | DI.RAD_ITS ---
Exam(s) XR KNEE LT 3V AP,LAT,DEENA EXAM: XR KNEE LT 3V AP,LAT,DEENA CLINICAL HISTORY: posterior L knee pain, r/o arthritis. TECHNIQUE: 2D digital imaging was performed. COMPARISON: CR RIGHT KNEE COMPLETE from 03/13/2017 FINDINGS: There is no evidence of acute fracture. There appears to be a small joint effusion. No obvious dege nerative changes. No evidence of chondrocalcinosis. No osteophytes. No joint narrowing evident on the weight-bearing view. No significant osseous lesions. IMPRESSION: No significant osseous findings. Small joint effusion. This may signify an internal derangement. DATA REPOSITORY: RADIATION DOSE DELIVERED:
== END 2020-10-11 15:02 | disposition home or self-care (01) ==
PROVIDERS: Emergency Provider Physician Assistant; PCP Family Medicine
DX: M25.562 Pain in left knee (principal); M25.462 Effusion, left knee
CPT/HCPCS: 73562; 99284; 93971; 99285

== ENCOUNTER 2020-11-02 02:30 | Emergency (ER) | payer MEDICARE, BC, SELFPAY ==
[2020-11-02 02:34] VITALS: BP 171/88; PULSE 108; RESP 22; TEMP 36.5; O2SAT 98
[2020-11-02 02:52] LABS: Bilirubin Negative (Negative); Blood Moderate (Negative); Clarity Sl Cloudy (Clear); Glucose Negative (Negative); Ketones Negative (Negative); Leukocyte Esterase Small (Negative); Nitrite Positive (Negative); Specific Gravity >= 1.030 (1.005-1.025); Urobilinogen 0.2 EU/dL (Up TO 0.2); pH 6.5 (5-8)
--- NOTE | 2020-11-02 02:56 | W.ED.GENAD ---
Discharge Plan Disposition Patient Disposition: HOME Condition: Improving Discharge Details Clinical Impression: Acute UTI Primary Care Provider: Eve Londono ED Provider: Star Portillo Home Meds and New Rx's Prescriptions: New cephalexin 500 mg capsule 500 mg PO TID 5 Days Qty: 15 RF: 0 Continued losartan 100 mg tablet 100 mg PO DAILY Qty: 90 RF: 4 Flovent HFA 220 mcg/actuation HFA aerosol inhaler 1 puff inhalation BID PRNRF: 0 fexofenadine [Preeti] 180 MG tablet 180 mg PO DAILY Qty: 90 RF: 4 acetaminophen [Tylenol Extra Strength] 500 MG tablet 1 tab PO DAILY PRNRF: 0 CPAP Each RF: 0 cyanocobalamin (vitamin B-12) [Vitamin B-12] 1,000 MCG tablet 1,000 mcg PO DAILY RF: 0 hydrocortisone valerate 45 GM cream 1 applic Topical BID prn Qty: 15 RF: 4 magnesium oxide 250 MG tablet 250 mg PO DAILY RF: 0 folic acid 0.4 MG tablet 0.4 mg PO DAILY RF: 0 Fiber Laxative (methylcellulo) 500 MG tablet 500 mg PO DAILY RF: 0 docusate sodium [Colace] 100 MG capsule 200 mg PO DAILY RF: 0 mupirocin calcium [Bactroban] 15 GM cream 15 gm Topical PRNRF: 0 FLUOCINONIDE 0.05% OINT 30 GM OINT...G. 1 applic Topical PRNRF: 0 nystatin-triamcinolone 100,000-0.1 unit/gram-% ointment 1 applic Topical BID prn Qty: 60 RF: 1 fluticasone propionate 50 mcg/actuation spray,suspension 2 spray NS DAILY Qty: 1 RF: 3 levothyroxine [Synthroid] 25 mcg tablet 25 mcg PO DAILY Qty: 90 RF: 11 amlodipine 10 mg tablet 10 mg PO DAILY Qty: 90 RF: 4 potassium chloride 20 mEq tablet extended release 20 meq PO BID Qty: 180 RF: 4 hydrochlorothiazide 25 mg tablet 25 mg PO DAILY Qty: 90 RF: 4 simvastatin [Zocor] 20 mg tablet 20 mg PO QPM Qty: 90 RF: 4 polyethylene glycol 3350 [Miralax] 17 GM powder in packet 1 packet PO Q48H PRNRF: 0 selenium 200 mcg Tablet 200 mcg PO DAILY RF: 0 megestrol 40 mg tablet 40 mg PO QID RF: 0 cholecalciferol (vitamin D3) [Vitamin D3] 10 mcg (400 unit) Tablet 10 mcg PO DAILY RF: 0 Discharge Instructions Instructions: Urinary Tract Infection in Women (ED) Additional Instructions: Home to rest this evening. Small, frequent sips of fluids that she maintain good hydration. Take Pyridium today as provided. This may turn your urine bright orange. Keflex 4 times daily for the first 4 doses, then fill prescription and finish at 3 times daily. Return to the ER for any acute concerns. Medical Decision Making 75-year-old female presents from home with hours of urinary burning, frequency of urine. She has been tolerating liquids and solids by mouth, no elevated temperature. Her exam is reassuring. Most consistent with acute cystitis/UTI. Patient's urinalysis positive for nitrates and leuk esterase. Will place her on Pyridium, Keflex. She is stable and appropriate for outpatient management. HPI General Mode of arrival: ambulatory. Date/Time Provider Initiated Documentation: 11/02/20 02:50. Limitations to Documentation: no limitations. Information obtained by: patient. History of Present Illness 75 year old F presents to the emergency department with the chief complaint of Burning with urination, described as moderate and similar to prior episodes, Quality is described as dull, and is localized to the abdomen and pelvis. Patient reports no radiation. Patient started experiencing this hour(s) and it has been constant. No relieving factors improve symptom(s), No exacerbating factors reported . Patient notes other ([place] chilled at home). Patient did receive the following treatments prior to arrival, none Related Data Home Medications Medication Instructions Recorded Confirmed acetaminophen [Tylenol Extra 1 tab PO DAILY PRN 07/30/12 11/02/20 Strength] fexofenadine [Preeti] 180 mg PO DAILY #90 07/30/12 11/02/20 cyanocobalamin (vitamin B-12) 1,000 mcg PO DAILY 08/06/13 11/02/20 [Vitamin B-12] hydrocortisone valerate 1 applic TOPICAL BID prn #15 gm 08/16/14 11/02/20 magnesium oxide 250 mg PO DAILY 08/18/15 11/02/20 Fiber Laxative (methylcellulo) 500 mg PO DAILY 08/19/16 11/02/20 docusate sodium [Colace] 200 mg PO DAILY tab-cap 08/19/16 11/02/20 folic acid 0.4 mg PO DAILY tab-cap 08/19/16 11/02/20 polyethylene glycol 3350 [Miralax] 1 packet PO Q48H PRN 09/24/17 11/02/20 Fluocinonide 0.05% Oint 1 applic TOPICAL PRN gm 09/25/17 10/10/20 mupirocin calcium [Bactroban] 15 gm TOPICAL PRN 09/25/17 10/10/20 nystatin-triamcinolone 100,000 1 applic TOPICAL BID prn #60 gm 07/02/18 11/02/20 unit/gram-0.1 % topical ointment fluticasone propionate 50 2 spray NS DAILY #1 ml 11/04/19 11/02/20 mcg/actuation nasal spray,suspension losartan 100 mg tablet 100 mg PO DAILY #90 tab 11/18/19 11/02/20 levothyroxine 25 mcg tablet 25 mcg PO DAILY #90 tab-cap 02/07/20 11/02/20 cholecalciferol (vitamin D3) 10 mcg PO DAILY 05/05/20 11/02/20 [Vitamin D3] megestrol 40 mg PO QID 05/05/20 11/02/20 selenium 200 mcg PO DAILY 05/05/20 11/02/20 amlodipine 10 mg tablet 10 mg PO DAILY #90 tab 05/10/20 11/02/20 potassium chloride 20 mEq 20 meq PO BID #180 tab 05/10/20 11/02/20 tablet,extended release hydrochlorothiazide 25 mg tablet 25 mg PO DAILY #90 tab 09/26/20 11/02/20 simvastatin 20 mg tablet 20 mg PO QPM #90 tab-cap 09/26/20 11/02/20 fluticasone propionate 220 1 puff INHALATION BID PRN 10/17/20 11/02/20 mcg/actuation HFA aerosol inhaler cephalexin 500 mg PO TID 5 Days #15 cap 11/02/20 Previous Rx's Medication Instructions Recorded nystatin-triamcinolone 100,000 1 applic TOPICAL BID prn #60 gm 07/02/18 unit/gram-0.1 % topical ointment fluticasone propionate 50 2 spray NS DAILY #1 ml 07/16/20 mcg/actuation nasal spray,suspension losartan 100 mg tablet 100 mg PO DAILY #90 tab 11/18/19 levothyroxine 25 mcg tablet 25 mcg PO DAILY #90 tab-cap 02/07/20 amlodipine 10 mg tablet 10 mg PO DAILY #90 tab 05/10/20 potassium chloride 20 mEq 20 meq PO BID #180 tab 05/10/20 tablet,extended release hydrochlorothiazide 25 mg tablet 25 mg PO DAILY #90 tab 09/26/20 simvastatin 20 mg tablet 20 mg PO QPM #90 tab-cap 09/26/20 cephalexin 500 mg PO TID 5 Days #15 cap 11/02/20 Allergies Allergy/AdvReac Type Severity Reaction Status Date / Time aspirin Allergy Severe HIVES Verified 10/17/20 10:14 NSAIDS (Non-Steroidal Allergy Severe HIVES Verified 10/17/20 10:14 Anti-Inflamma latex Allergy Intermediate redness Verified 10/17/20 10:14 enalapril AdvReac Severe SEVERE LEG Verified 10/17/20 10:14 PAIN lisinopril AdvReac cough Verified 10/17/20 10:14 General Stated Complaint: Urinary RAYRAY: 4 Review of Systems Narrative: Urinary burning, frequency, urgency. No vomiting, no recent illness. 6 systems reviewed and otherwise negative [facility] Medical History Abdominal abscess (07/29/16) Abnormal mammogram of right breast 09/04/15 cat3, [place] [facility] [place] meniscal injury of right knee (03/13/17) Colon polyp (07/12/02) adenomas polyps Elevated blood sugar level 08/19/16 Endometrial cancer, grade I (07/09/16) hysterectomy planned fro 07/15 at [facility] 07/16/16 S/P HYSTERECTOMY Essential hypertension (07/27/13) Hyperglycemia (08/19/16) Hyperlipidemia (07/31/12) Hypothyroidism (07/31/12) Migraine Migraine Obesity (08/12/14) Obstructive sleep apnea syndrome (07/30/11) uses CPAP Psoriasis UTI (urinary tract infection) Vitamin B 12 deficiency (08/03/14) Surgical History Appendectomy (~1982) Bilateral salpingectomy with oophorectomy (07/16/16) [facility] cystectomy (~1987) uterine History of bilateral ligation of fallopian tubes History of bilateral tubal ligation 04/21/82 Hysterectomy, Laproscopic (07/16/16) [facility] Ligation of fallopian tube (~1982) S/P appendectomy 04/21/82 Status post appendectomy Uterine fibroids removed (~1987) Family History (Updated 11/22/19 @ 13:32 by Jenna Guerrero) Mother , 76 Essential hypertension Heart disease Hyperlipidemia Myocardial infarction Father , 96 Essential hypertension Heart disease Hyperlipidemia Stroke Sister Essential hypertension Heart disease Stroke Brother , 59 Essential hypertension Heart disease Hyperlipidemia Brain cancer Brother Diabetes Essential hypertension Hyperlipidemia Brother Essential hypertension Brother Essential hypertension Hyperlipidemia Maternal Grandfather , 93 Heart disease Paternal Grandfather , 81 Essential hypertension Heart disease Maternal Grandmother , 54 Rheumatoid arthritis Paternal Grandmother , 80 Heart disease Social History (Updated 11/22/19 @ 13:29 by Jenna Guerrero) Smoking/Tobacco Use Status: Former Tobacco Use Quit Date: 04/21/78 Second Hand Exposure: Yes Smoking risk assessment performed?: Yes Alcohol Intake: current Alcohol Intake frequency: holidays/special occasions only Alcohol type: beer Drug use: Never Substance use type: does not use Caregiver/Support person: No Household members: spouse and children Housing: house Communication Needs: Hard of Hearing Do you need help understanding health information?: Never Pets and animals: No Sexually active: No Current gender identity: female and decline to answer What is your relationship status?: How often do you talk on the phone with friends or family?: decline to answer How often do you get together with friends or relatives?: decline to answer How often do you attend jainism or zoroastrianism services?: decline to answer Do you belong to any clubs or organized social groups?: decline to answer Panel score (0-1 are the most socially isolated patients): 1 What type of physical activity do you participate in: none Porsche/Mormonism: No preference Special porsche needs: No Seatbelt use: always Drive intox or ride w/intox sweeper driver: No Do you feel safe at home: Yes Do you feel safe in your relationship?: Yes Exam Narrative Exam Narrative: GEN: awake, alert, oriented 3. Pleasant, well groomed, interactive. HEAD: Normocephalic, atraumatic EYES: PERRL, EOMI NECK: Full ROM, no KAYLA, no menigismus CHEST/RESP: Nontender, clear to auscultation bilateral, no wheeze/rhonchi/rales CARDIOVASCULAR: RRR, no murmur, rub corey. 2+ Rad pulse bilateral ABDOMEN: Soft, nontender, no mass. +Bowel sounds EXT: Full ROM, no edema, no rash Neuro: Grossly normal neurologic exam, conversant, interactive. Psych: Speech fluent, thoughts congruent, affect normal Course Vital Signs Vital signs: Vital Signs Temperature 36.5 C 11/02/20 02:34 Pulse 108 H 11/02/20 02:34 Respiratory Rate 22 11/02/20 02:34 Blood Pressure 171/88 H 11/02/20 02:34 Pulse Oximetry 98 11/02/20 02:34 Temperature 36.5 C 11/02/20 02:34 Temperature Source Temporal Artery Scan 11/02/20 02:34 Pulse 108 H 11/02/20 02:34 Respiratory Rate 22 11/02/20 02:34 Respiratory Effort Non-Labored 11/02/20 02:41 Blood Pressure 171/88 H 11/02/20 02:34 Pulse Oximetry 98 11/02/20 02:34 Oxygen Delivery Method Room Air 11/02/20 02:34 Oxygen Flow Rate 0 11/02/20 02:34 Pain Level 6 11/02/20 02:47
[2020-11-02 03:05] LABS: WBC >50 HPF (0-5)
[2020-11-02 03:06] LABS: C & S Indicated? Yes
[2020-11-02] MEDS: Phenazopyridine 100 MG TAB, 2 TABS/BTL PO (03:18)
[2020-11-02] MEDS: Cephalexin 500 MG CAP, 4 CAPS/BTL PO (03:18)
--- NOTE | 2020-11-06 08:18 | W.ED.FU ---
uti c micro + for ecli, sensitive to 1st gen cephalosporins, on keflex, no change
== END 2020-11-02 03:15 | disposition home or self-care (01) ==
PROVIDERS: Emergency Provider Emergency Medicine; PCP Family Medicine
DX: N39.0 Urinary tract infection, site not specified (principal)
CPT/HCPCS: 87077; 99283; 81003; 81015; 87086; 87186

== ENCOUNTER 2020-12-31 07:46 | Emergency (ER) | payer MEDICARE, BC, SELFPAY ==
--- NOTE | 2020-12-31 07:45 | RT.EKG_ITS ---
APPROVED REPORT Exam: Resting ECG Reason for Exam: high bp Patient Location: E HR:83 bpm ECG Measurements Heart Rate 83 AXIS FL 184 P 12 QRSd 93 QRS -38 QT 374 T 79 QTc 440 Conclusion Sinus rhythm. LVH with secondary repolarization abnormality.
[2020-12-31 07:55] VITALS: BP 153/79; PULSE 95; RESP 18; TEMP 36.5; O2SAT 98
--- NOTE | 2020-12-31 08:15 | DI.RAD_ITS ---
Exam(s) XR CHEST 2V PA LATERAL EXAM: XR CHEST 2V PA LATERAL CLINICAL HISTORY: CP TECHNIQUE: 2D digital imaging was performed. COMPARISON: CR,XR XR PORTABLE CHEST AP from 05/05/2020 FINDINGS: MEDIASTINUM: Normal. HEART: Within normal limits. PULMONARY VASCULATURE: Normal. LUNGS: Clear. PLEURAL SPACE: No pleural effusion or pneumothorax. BONE:Within normal limits for the patient's age. OTHER FINDINGS:Normal. IMPRESSION: No acute pulmonary findings. DATA REPOSITORY: RADIATION DOSE DELIVERED:
[2020-12-31 08:18] VITALS: BP 156/82; PULSE 85; RESP 16; O2SAT 97
--- NOTE | 2020-12-31 08:25 | W.ED.GENAD ---
Discharge Plan Disposition Patient Disposition: HOME Condition: Good Discharge Details Clinical Impression: Essential hypertension, Stress, Anxiety Primary Care Provider: Eve Londono ED Provider: Danitza Oliveira Home Meds and New Rx's Prescriptions: Continued losartan 100 mg tablet 100 mg PO DAILY Qty: 90 RF: 4 docusate sodium 250 mg capsule 500 mg PO DAILY RF: 0 cholecalciferol (vitamin D3) 25 mcg (1,000 unit) capsule 50 mcg PO DAILY RF: 0 bisacodyl 5 mg tablet 5 mg PO DAILY PRNRF: 0 fluocinonide 0.05 % cream 1 applic topical BID PRNRF: 0 hydrocortisone [Aquaphor Itch Relief] 1 % ointment 1 applic topical DAILY PRNRF: 0 mupirocin calcium 2 % cream 1 applic topical DAILY PRNRF: 0 Flovent HFA 220 mcg/actuation HFA aerosol inhaler 1 puff inhalation BID PRNRF: 0 fexofenadine [Preeti] 180 MG tablet 180 mg PO DAILY Qty: 90 RF: 4 acetaminophen [Tylenol Extra Strength] 500 MG tablet 1 tab PO DAILY PRNRF: 0 CPAP Each RF: 0 cyanocobalamin (vitamin B-12) [Vitamin B-12] 1,000 MCG tablet 1,000 mcg PO DAILY RF: 0 hydrocortisone valerate 45 GM cream 1 applic Topical BID prn Qty: 15 RF: 4 magnesium oxide 250 MG tablet 250 mg PO DAILY RF: 0 mupirocin calcium [Bactroban] 15 GM cream 15 gm Topical PRN PRNRF: 0 FLUOCINONIDE 0.05% OINT 30 GM OINT...G. 1 applic Topical PRNRF: 0 nystatin-triamcinolone 100,000-0.1 unit/gram-% ointment 1 applic Topical BID prn Qty: 60 RF: 1 fluticasone propionate 50 mcg/actuation spray,suspension 2 spray NS DAILY Qty: 1 RF: 3 levothyroxine [Synthroid] 25 mcg tablet 25 mcg PO DAILY Qty: 90 RF: 11 amlodipine 10 mg tablet 10 mg PO DAILY Qty: 90 RF: 4 potassium chloride 20 mEq tablet extended release 20 meq PO BID Qty: 180 RF: 4 hydrochlorothiazide 25 mg tablet 25 mg PO DAILY Qty: 90 RF: 4 simvastatin [Zocor] 20 mg tablet 20 mg PO QPM Qty: 90 RF: 4 folic acid 400 mcg tablet 0.8 mg PO DAILY RF: 0 selenium 200 mcg Tablet 200 mcg PO DAILY RF: 0 megestrol 40 mg tablet 40 mg PO QID RF: 0 Discharge Instructions Instructions: Hypertension (ED), Anxiety (ED) Additional Instructions: Your labs and imaging are reassuring here today. I am concerned that some of your elevation of your blood pressure may be associated with your stress and anxiety around having elevated blood pressure. Please try to reduce her stress. As discussed, please consider further obtaining a counselor. Please discuss this further with your primary care. Please stop checking her blood pressure for the time being unless she began having symptoms. Please try to increase your activity level as we discussed and take short walks outside daily. You may increase the length as tolerated. Please call your primary care provider tomorrow to schedule follow-up appointment in the next 1 to 2 weeks for reevaluation. If you develop recurrence of your chest pain, shortness of breath or other new/worsening symptom please seek care urgently once again. Referrals: Eve Londono MD, [place] [Primary Care Provider] - Discharge Data Discharge Date/Time-TO BE ENTERED AT DEPARTURE: 12/31/20 10:06 Medical Decision Making Patient is a pleasant 75-year-old female presenting today with chief complaint of elevated blood pressures. She reports that she had a 1 second sudden onset of chest discomfort in the left breast 1 week ago. Has not had any pain since then. No short of breath. States that she has been diaphoretic but believes this is associated with the weather. Has not had any nausea. Her primary concern is that since then she has been checking her blood pressures and that her systolic has been in the 150s. Patient does have a history of hypertension and is on hydrochlorothiazide which she is not yet taken this morning, losartan as well as amlodipine. Past medical history is also pertinent for endometrial cancer, hyperlipidemia, hypothyroidism, obesity, SHAMAR. Patient appears incredibly anxious. She begins crying when discussing her current social stressors. Her in March. She stated she had a large amount of stress leading up to his in August. Suffered injury from overuse while prepping for his . States that just now her pain is beginning to subside and she is planning on beginning to begin being more active again. Her daughter is currently living with her but is working throughout the day so she is typically alone. Sadly between the of her , her stretches of being alone as well as relative immobility, she is having difficulty with anxiety and stress. On exam, patient appears anxious but otherwise nontoxic. Normal cardiac auscultation. Lungs are clear. No lower extremity edema. Patient I discussed work-up. She did have a brief episode of chest discomfort as well as her large amount of anxiety around her elevated blood pressure, plan to obtain baseline labs including troponin, ECG and chest x-ray. I did also encourage that she focus more on her mental health including a counselor. We did discuss anxiety lytic. She would like to think about this and that further with her primary care. In regard to the blood pressure, she is 153/79 here which appears to be her baseline. Offered reassurance. Also advised that her being so nervous regarding her elevated blood pressure is likely causing it to elevate even further. I do not see evidence to suggest endorgan damage at this time. FINDINGS: Lungs: Unremarkable. No consolidation. Pleural spaces: Unremarkable. No pleural effusion. No pneumothorax. Heart/Mediastinum: Cardiac silhouette at the upper limits of normal in size, unchanged Vasculature: Aorta is tortuous Bones/joints: Unremarkable. IMPRESSION: Stable appearance of chest Labs reviewed. No leukocytosis. Stable H&H. No significant electrolyte abnormalities. Troponin within normal limits. Discussed these findings with the patient. She seems quite reassured. Her blood pressure is stable here. Advised that she is on multiple blood pressure medications and much of this has been stress-induced, she discuss this further with her primary care. I again encouraged her to consider counseling. Also discussed stressors traction technique. I advised that for the time being she will hold off on assessing her blood pressure as this seems to greatly increase her stress and is likely raising her blood pressure even higher. She will call Friday to schedule follow-up appointment. Return precautions were discussed. All her questions and concerns were addressed and she is agreement this plan HPI General Mode of arrival: ambulatory. Date/Time Provider Initiated Documentation: 12/31/20 07:59. Limitations to Documentation: no limitations. Information obtained by: patient and RN notes reviewed. History of Present Illness 75 year old F presents to the emergency department with the chief complaint of elevated blood pressure, described as moderate, Quality is described as other (states she had one brief episode of CP one week ago, no pain since), and is localized to the chest. Patient reports no radiation. Patient started experiencing this week(s) (1) and it has been constant (BP has been consistently elevated x 1wk). No relieving factors improve symptom(s), No exacerbating factors reported . Patient notes chest pain and diaphoresis (states she has been hot recently, states it is b/c of the weather); denies fever/chills, headaches, loss of appetite, nausea/vomiting, rash, shortness of breath and weakness. Patient did receive the following treatments prior to arrival, none Related Data Home Medications Medication Instructions Recorded Confirmed acetaminophen [Tylenol Extra 1 tab PO DAILY PRN 07/30/12 12/31/20 Strength] fexofenadine [Preeti] 180 mg PO DAILY #90 07/30/12 12/31/20 cyanocobalamin (vitamin B-12) 1,000 mcg PO DAILY 08/06/13 12/31/20 [Vitamin B-12] hydrocortisone valerate 1 applic TOPICAL BID prn #15 gm 08/16/14 12/31/20 magnesium oxide 250 mg PO DAILY 08/18/15 12/31/20 Fluocinonide 0.05% Oint 1 applic TOPICAL PRN gm 09/25/17 10/10/20 mupirocin calcium [Bactroban] 15 gm TOPICAL PRN PRN 09/25/17 12/31/20 nystatin-triamcinolone 100,000 1 applic TOPICAL BID prn #60 gm 07/02/18 12/31/20 unit/gram-0.1 % topical ointment fluticasone propionate 50 2 spray NS DAILY #1 ml 11/04/19 12/31/20 mcg/actuation nasal spray,suspension losartan 100 mg tablet 100 mg PO DAILY #90 tab 11/18/19 12/31/20 levothyroxine 25 mcg tablet 25 mcg PO DAILY #90 tab-cap 02/07/20 12/31/20 megestrol 40 mg PO QID 05/05/20 12/31/20 selenium 200 mcg PO DAILY 05/05/20 12/31/20 amlodipine 10 mg tablet 10 mg PO DAILY #90 tab 05/10/20 12/31/20 potassium chloride 20 mEq 20 meq PO BID #180 tab 05/10/20 12/31/20 tablet,extended release hydrochlorothiazide 25 mg tablet 25 mg PO DAILY #90 tab 09/26/20 12/31/20 simvastatin 20 mg tablet 20 mg PO QPM #90 tab-cap 09/26/20 12/31/20 fluticasone propionate 220 1 puff INHALATION BID PRN 10/17/20 12/31/20 mcg/actuation HFA aerosol inhaler bisacodyl 5 mg tablet 5 mg PO DAILY PRN tab 11/27/20 12/31/20 cholecalciferol (vitamin D3) 25 50 mcg PO DAILY cap 11/27/20 12/31/20 mcg (1,000 unit) capsule docusate sodium 250 mg capsule 500 mg PO DAILY cap 11/27/20 12/31/20 fluocinonide 0.05 % topical cream 1 applic TOPICAL BID PRN 11/27/20 12/31/20 folic acid 400 mcg tablet 0.8 mg PO DAILY tab-cap 11/27/20 12/31/20 hydrocortisone 1 % topical ointment 1 applic TOPICAL DAILY PRN g 11/27/20 12/31/20 mupirocin calcium 2 % topical cream 1 applic TOPICAL DAILY PRN g 11/27/20 12/31/20 Previous Rx's Medication Instructions Recorded nystatin-triamcinolone 100,000 1 applic TOPICAL BID prn #60 gm 07/02/18 unit/gram-0.1 % topical ointment fluticasone propionate 50 2 spray NS DAILY #1 ml 11/04/19 mcg/actuation nasal spray,suspension losartan 100 mg tablet 100 mg PO DAILY #90 tab 11/18/19 levothyroxine 25 mcg tablet 25 mcg PO DAILY #90 tab-cap 02/07/20 amlodipine 10 mg tablet 10 mg PO DAILY #90 tab 05/10/20 potassium chloride 20 mEq 20 meq PO BID #180 tab 05/10/20 tablet,extended release hydrochlorothiazide 25 mg tablet 25 mg PO DAILY #90 tab 09/26/20 simvastatin 20 mg tablet 20 mg PO QPM #90 tab-cap 09/26/20 Allergies Allergy/AdvReac Type Severity Reaction Status Date / Time aspirin Allergy Severe HIVES Verified 12/31/20 08:04 NSAIDS (Non-Steroidal Allergy Severe HIVES Verified 12/31/20 08:04 Anti-Inflamma latex Allergy Intermediate redness Verified 12/31/20 08:04 enalapril AdvReac Severe SEVERE LEG Verified 12/31/20 08:04 PAIN cetirizine [From yrte] AdvReac Knee pain Verified 12/31/20 08:04 lisinopril AdvReac cough Verified 12/31/20 08:04 General Stated Complaint: GenMedical RAYRAY: 3 Review of Systems Constitutional Constitutional: Reports as per HPI, Denies chills, Denies fever(s) and Denies headache(s) ENT Ears, Nose, Mouth, and Throat: Denies headache(s) Cardiovascular Cardiovascular: Reports as per HPI, Denies dyspnea and Denies dyspnea on exertion Respiratory Respiratory: Reports as per HPI, Denies chest congestion, Denies cough, Denies dyspnea and Denies dyspnea on exertion Gastrointestinal Gastrointestinal: Reports as per HPI, Denies abdominal pain, Denies diarrhea, Denies nausea and Denies vomiting Integumentary/Breasts Skin/Breast: Reports as per HPI and Denies rash Neurologic Neurologic: Reports as per HPI and Denies headache(s) Psychiatric Psychiatric: Reports as per HPI [facility] Medical History Abdominal abscess (07/29/16) Abnormal [place]ogram of right breast 09/04/15 [place]3, [place] [facility] [place] meniscal injury of right knee (03/13/17) Colon polyp (07/12/02) adenomas polyps Elevated blood sugar level 08/19/16 Endometrial cancer, grade I (07/09/16) hysterectomy planned fro 07/15 at [facility] 07/16/16 S/P HYSTERECTOMY Essential hypertension (07/27/13) Hyperglycemia (08/19/16) Hyperlipidemia (07/31/12) Hypothyroidism (07/31/12) Migraine Migraine Obesity (08/12/14) Obstructive sleep apnea syndrome (07/30/11) uses CPAP Psoriasis UTI (urinary tract infection) Vitamin B 12 deficiency (08/03/14) Surgical History Appendectomy (~1982) Bilateral salpingectomy with oophorectomy (07/16/16) [facility] cystectomy (~1987) uterine History of bilateral ligation of fallopian tubes History of bilateral tubal ligation 04/21/82 Hysterectomy, Laproscopic (07/16/16) [facility] Ligation of fallopian tube (~1982) S/P appendectomy 04/21/82 Status post appendectomy Uterine fibroids removed (~1987) Family History (Updated 11/22/19 @ 13:32 by Jenna Guererro) Mother , 76 Essential hypertension Heart disease Hyperlipidemia Myocardial infarction Father , 96 Essential hypertension Heart disease Hyperlipidemia Stroke Sister Essential hypertension Heart disease Stroke Brother , 59 Essential hypertension Heart disease Hyperlipidemia Brain cancer Brother Diabetes Essential hypertension Hyperlipidemia Brother Essential hypertension Brother Essential hypertension Hyperlipidemia Maternal Grandfather , 93 Heart disease Paternal Grandfather , 81 Essential hypertension Heart disease Maternal Grandmother , 54 Rheumatoid arthritis Paternal Grandmother , 80 Heart disease Social History Smoking/Tobacco Use Status: Former Tobacco Use Quit Date: 04/21/78 Tobacco: How many years used: 15 Second Hand Exposure: Yes Smoking risk assessment performed?: Yes Alcohol Intake: current Alcohol Intake frequency: holidays/special occasions only Caregiver/Support person: No Household members: children Communication Needs: None Do you need help understanding health information?: Never Pets and animals: No Current gender identity: female What is your relationship status?: Panel score (0-1 are the most socially isolated patients): 0 Seatbelt use: always Drive intox 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: No Do you feel safe at home: Yes Do you feel safe in your relationship?: Yes Exam Const General: cooperative, healthy appearing, comfortable, no acute distress, well developed and anxious Nutritional Appearance: well nourished and overweight Orientation: alert, awake and oriented x3 Resp Effort & Inspection: normal respiratory effort, able to speak in complete sentences and no respiratory distress Auscultation: clear to auscultation bilaterally, no rales, no rhonchi and no wheezes Cardio Rate: regular rate Rhythm: regular rhythm Heart Sounds: S1 normal and S2 normal GI Inspection: normal to inspection, no edema and non-distended Palpation: soft, no hepatosplenomegaly, not firm, no guarding, not rigid and nontender Auscultation: normal bowel sounds Skin General skin exam: no rashes or lesions noted Trauma: no lacerations or abrasions Neuro General: patient alert, patient awake and patient oriented x3 Cognition: normal cognition Speech: speech normal Gait: normal gait Extrem General: normal to inspection, capillary refill normal, no pedal edema, no calf tenderness, normal gait and other (2+ distal pulses) Psych Appearance: grossly normal and well kempt Mental Status: mental status grossly normal Speech and Movement: speech and movement normal Course Vital Signs Vital signs: Vital Signs Temperature 36.5 C 12/31/20 07:55 Pulse 95 H 12/31/20 07:55 Respiratory Rate 18 12/31/20 07:55 Blood Pressure 153/79 H 12/31/20 07:55 Pulse Oximetry 98 12/31/20 07:55 Temperature 36.5 C 12/31/20 07:55 Temperature Source Skin 12/31/20 07:55 Pulse 85 12/31/20 08:18 Respiratory Rate 16 12/31/20 08:18 Respiratory Effort Non-Labored 12/31/20 08:11 Blood Pressure 156/82 H 12/31/20 08:18 Blood Pressure Position Sitting 12/31/20 07:55 Pulse Oximetry 97 12/31/20 08:18 Oxygen Delivery Method Room Air 12/31/20 08:18 Oxygen Flow Rate 0 12/31/20 08:18 Pain Level 0 12/31/20 07:55
[2020-12-31] MEDS: hydroCHLOROthiazide 25 MG TAB PO (08:57)
[2020-12-31] MEDS: Normal Saline Flush 10 ML SYR IVP (08:57)
[2020-12-31 09:00] VITALS: RESP 16
[2020-12-31 09:10] LABS: Abs Immature Grans 0.03 10^3/uL (0.0-0.06); Absolute Basophil Count 0.03 10^3/uL (0.0-0.2); Absolute Eosinophil Count 0.15 10^3/uL (0.0-0.7); Absolute Lymphocyte Count 2.21 10^3/uL (1.2-3.4); Absolute Monocyte Count 0.68 10^3/uL (0.1-0.8); Absolute Neutrophil Count 4.32 10^3/uL (1.2-6.7); Basophils % 0.4; HCT 39.3 % (36.0-46.0); HGB 12.4 g/dL (11.2-15.7); Immature Grans % 0.4; Lymphocytes % 29.8; MCH 29.7 pg (27.0-33.0); MCHC 31.6 % (32.0-36.0); MCV 94.2 fL (80-95); MPV 9.2 fL (8.0-11.0); Monocytes % 9.2; Neutrophils % 58.2; Nucleated RBC 0 %; Platelet Count 307 10^3/uL (130-400); RBC 4.17 10^6/uL (3.93-5.22); RDW-SD 52.2 fL; WBC 7.42 10^3/uL (4.4-10.8)
[2020-12-31 09:15] LABS: Magnesium 2.3 mg/dL (1.8-2.4)
[2020-12-31 09:37] LABS: ALT 28 U/L (14-59); AST 11 U/L (15-37); Albumin 4.3 g/dL (3.4-5.0); Alkaline Phosphatase 64 U/L (46-116); Anion Gap 14.3 mmol/L (3-11); BUN 13 mg/dL (7-18); Bilirubin, Total 0.4 mg/dL (0.2-1.0); CO2 25.7 mmol/L (21.0-32.0); CREATININE 0.9 mg/dL (0.55-1.02); Calcium 9.2 mg/dL (8.5-10.1); Chloride 105 mmol/L (98-107); Glucose 90 mg/dL (74-106); Potassium 3.5 mmol/L (3.5-5.1); Sodium 145 mmol/L (136-145); Total Protein 7.8 g/dL (6.4-8.2)
--- NOTE | 2020-12-31 09:38 | DI.VRAD_ITS ---
PROCEDURE INFORMATION: Exam: XR Chest Exam date and time: 12/31/2020 8:23 AM Age: 75 years old Clinical indication: Other: High blood pressure, cp TECHNIQUE: Imaging protocol: XR of the chest. Views: 2 views. COMPARISON: CR XR PORTABLE CHEST AP 05/05/2020 4:13 PM FINDINGS: Lungs: Unremarkable. No consolidation. Pleural spaces: Unremarkable. No pleural effusion. No pneumothorax. Heart/Mediastinum: Cardiac silhouette at the upper limits of normal in size, unchanged Vasculature: Aorta is tortuous Bones/joints: Unremarkable. IMPRESSION: Stable appearance of chest Dictated and Authenticated by: Jane Sheets MD. Ordering:AQUILES Bosch MD
[2020-12-31 09:39] LABS: Troponin I < 0.05 ng/mL (<0.06)
== END 2020-12-31 10:06 | disposition home or self-care (01) ==
PROVIDERS: Emergency Provider Physician Assistant; PCP Family Medicine
DX: I10 Essential (primary) hypertension (principal); F41.9 Anxiety disorder, unspecified; F43.9 Reaction to severe stress, unspecified; R07.9 Chest pain, unspecified
CPT/HCPCS: 36415; 80053; 93005; 99284; 71046; 83735; 84484; 85025; 93010; 99283

== ENCOUNTER 2021-02-26 01:44 | Emergency (ER) | payer MEDICARE, BC, SELFPAY ==
[2021-02-26 01:55] VITALS: BP 175/82; PULSE 120; RESP 20; TEMP 36.7; O2SAT 98
[2021-02-26 02:02] LABS: Bilirubin Negative (Negative); Blood Moderate (Negative); Clarity Sl Cloudy (Clear); Glucose Negative (Negative); Ketones Negative (Negative); Leukocyte Esterase Moderate (Negative); Nitrite Negative (Negative); Urobilinogen 0.2 EU/dL (Up TO 0.2); pH 7.5 (5-8)
--- NOTE | 2021-02-26 02:04 | ED.GENADUL_ITS ---
Discharge Plan Disposition Patient Disposition: HOME Condition: Good Discharge Details Clinical Impression: Acute UTI Primary Care Provider: Eve Londono ED Provider: Xavier Azar Home Meds and New Rx's Prescriptions: New cephalexin 500 mg capsule 500 mg PO QID 7 Days Qty: 28 RF: 0 No Action levothyroxine [Synthroid] 25 mcg tablet 25 mcg PO DAILY Qty: 90 RF: 11 docusate sodium 250 mg capsule 500 mg PO DAILY RF: 0 cholecalciferol (vitamin D3) 25 mcg (1,000 unit) capsule 50 mcg PO DAILY RF: 0 bisacodyl 5 mg tablet 5 mg PO DAILY PRNRF: 0 fluocinonide 0.05 % cream 1 applic topical BID PRNRF: 0 hydrocortisone [Aquaphor Itch Relief] 1 % ointment 1 applic topical DAILY PRNRF: 0 mupirocin calcium 2 % cream 1 applic topical DAILY PRNRF: 0 Flovent HFA 220 mcg/actuation HFA aerosol inhaler 1 puff inhalation BID PRNRF: 0 fexofenadine [Preeti] 180 MG tablet 180 mg PO DAILY Qty: 90 RF: 4 acetaminophen [Tylenol Extra Strength] 500 MG tablet 1 tab PO DAILY PRNRF: 0 CPAP Each RF: 0 cyanocobalamin (vitamin B-12) [Vitamin B-12] 1,000 MCG tablet 1,000 mcg PO DAILY RF: 0 hydrocortisone valerate 45 GM cream 1 applic Topical BID prn Qty: 15 RF: 4 magnesium oxide 250 MG tablet 250 mg PO DAILY RF: 0 mupirocin calcium [Bactroban] 15 GM cream 15 gm Topical PRN PRNRF: 0 FLUOCINONIDE 0.05% OINT 30 GM OINT...G. 1 applic Topical PRNRF: 0 nystatin-triamcinolone 100,000-0.1 unit/gram-% ointment 1 applic Topical BID prn Qty: 60 RF: 1 amlodipine 10 mg tablet 10 mg PO DAILY Qty: 90 RF: 4 potassium chloride 20 mEq tablet extended release 20 meq PO BID Qty: 180 RF: 4 hydrochlorothiazide 25 mg tablet 25 mg PO DAILY Qty: 90 RF: 4 simvastatin [Zocor] 20 mg tablet 20 mg PO QPM Qty: 90 RF: 4 folic acid 400 mcg tablet 0.8 mg PO DAILY RF: 0 metoprolol succinate 25 mg tablet extended release 24 hr 25 mg PO DAILY Qty: 90 RF: 4 losartan 100 mg tablet 100 mg PO DAILY Qty: 90 RF: 4 fluticasone propionate 50 mcg/actuation spray,suspension 2 spray NS DAILY Qty: 16 RF: 3 selenium 200 mcg Tablet 200 mcg PO DAILY RF: 0 megestrol 40 mg tablet 40 mg PO QID RF: 0 Discharge Instructions Instructions: Urinary Tract Infection in Women (ED) Additional Instructions: If you have evidence of urinary tract infection, please take the antibiotic Keflex as directed. We have given you a small bottle here and we have sent a full prescription to your local pharmacy on file. Please drink plenty of fluids and take cranberry concentrate. If you notice any worsening of your symptoms, or any new symptoms such as vomiting, diarrhea, fever, chills, shortness of breath, chest pain, numbness, weakness, or fainting , please return immediately to the emergency department for reevaluation. Please follow up with your primary care provider as soon as possible for reassessment and reevaluation. As always, it was a pleasure participating in your medical care today. Referrals: Eve Londono MD, [place] [Primary Care Provider] - Medical Decision Making 75-year-old female with a past medical history of hypertension, endometrial cancer, hypothyroidism, obstructive sleep apnea, psoriasis, high cholesterol, who presents today for burning with urination for the last 2 to 3 hours. She denies any history of kidney stones. She denies any blood. She denies any vomiting or flank pain. No vaginal discharge. She has had urinary tract infections, and they felt similar to this. No other complaints time. No other modifying factors. Physical exam demonstrates no abdominal tenderness, no flank or CVA tenderness. We will check a UA for evaluation of potential UTI. Previous urinalysis from her last urinary tract infection did give evidence of E. coli that was pansensitive. Urinalysis shows some this shows evidence of urinary tract infection. Patient will be given a bottle of Keflex and a prescription for home use. Discussed red flags which to return. No evidence of pyelonephritis requiring admission. I have extensively reviewed the treatment plan and discharge instructions with the patient. I have addressed all patient concerns at this time. The patient was made aware of what symptoms to monitor for that would warrant a return to the emergency department. Discussed the plan with the patient, they demonstrate verbal understanding and agreement with our assessment and plan at this time. The documentation in this chart was dictated using [employer] dictation software. Please excuse any dictation errors. HPI General Date/Time Provider Initiated Documentation: 02/26/21 01:46 . HPI Narrative: 75-year-old female with a past medical history of hypertension, endometrial cancer, hypothyroidism, obstructive sleep apnea, psoriasis, high cholesterol, who presents today for burning with urination for the last 2 to 3 hours. She denies any history of kidney stones. She denies any blood. She denies any vomiting or flank pain. No vaginal discharge. She has had urinary tract infections, and they felt similar to this. No other complaints time. No other modifying factors. Related Data Home Medications Medication Instructions Recorded Confirmed acetaminophen [Tylenol Extra 1 tab PO DAILY PRN 07/30/12 01/11/21 Strength] fexofenadine [Preeti] 180 mg PO DAILY #90 07/30/12 01/11/21 cyanocobalamin (vitamin B-12) 1,000 mcg PO DAILY 08/06/13 01/11/21 [Vitamin B-12] hydrocortisone valerate 1 applic TOPICAL BID prn #15 gm 08/16/14 01/11/21 magnesium oxide 250 mg PO DAILY 08/18/15 01/11/21 Fluocinonide 0.05% Oint 1 applic TOPICAL PRN gm 09/25/17 01/11/21 mupirocin calcium [Bactroban] 15 gm TOPICAL PRN PRN 09/25/17 01/11/21 nystatin-triamcinolone 100,000 1 applic TOPICAL BID prn #60 gm 07/02/18 01/11/21 unit/gram-0.1 % topical ointment megestrol 40 mg PO QID 05/05/20 01/11/21 selenium 200 mcg PO DAILY 05/05/20 01/11/21 amlodipine 10 mg tablet 10 mg PO DAILY #90 tab 05/10/20 01/11/21 potassium chloride 20 mEq 20 meq PO BID #180 tab 05/10/20 01/11/21 tablet,extended release hydrochlorothiazide 25 mg tablet 25 mg PO DAILY #90 tab 09/26/20 01/11/21 simvastatin 20 mg tablet 20 mg PO QPM #90 tab-cap 09/26/20 01/11/21 fluticasone propionate 220 1 puff INHALATION BID PRN 10/17/20 01/11/21 mcg/actuation HFA aerosol inhaler bisacodyl 5 mg tablet 5 mg PO DAILY PRN tab 11/27/20 01/11/21 cholecalciferol (vitamin D3) 25 50 mcg PO DAILY cap 11/27/20 01/11/21 mcg (1,000 unit) capsule docusate sodium 250 mg capsule 500 mg PO DAILY cap 11/27/20 01/11/21 fluocinonide 0.05 % topical cream 1 applic TOPICAL BID PRN 11/27/20 01/11/21 folic acid 400 mcg tablet 0.8 mg PO DAILY tab-cap 11/27/20 01/11/21 hydrocortisone 1 % topical ointment 1 applic TOPICAL DAILY PRN g 11/27/20 01/11/21 mupirocin calcium 2 % topical cream 1 applic TOPICAL DAILY PRN g 11/27/20 01/11/21 levothyroxine 25 mcg tablet 25 mcg PO DAILY #90 tab-cap 01/11/21 01/11/21 metoprolol succinate 25 mg 25 mg PO DAILY #90 tab 01/11/21 tablet,extended release 24 hr losartan 100 mg tablet 100 mg PO DAILY #90 tab 01/29/21 fluticasone propionate 50 2 spray NS DAILY #16 g 02/09/21 mcg/actuation nasal spray,suspension cephalexin 500 mg PO QID 7 Days #28 cap 02/26/21 Previous Rx's Medication Instructions Recorded nystatin-triamcinolone 100,000 1 applic TOPICAL BID prn #60 gm 07/02/18 unit/gram-0.1 % topical ointment amlodipine 10 mg tablet 10 mg PO DAILY #90 tab 05/10/20 potassium chloride 20 mEq 20 meq PO BID #180 tab 05/10/20 tablet,extended release hydrochlorothiazide 25 mg tablet 25 mg PO DAILY #90 tab 09/26/20 simvastatin 20 mg tablet 20 mg PO QPM #90 tab-cap 09/26/20 levothyroxine 25 mcg tablet 25 mcg PO DAILY #90 tab-cap 01/11/21 metoprolol succinate 25 mg 25 mg PO DAILY #90 tab 01/11/21 tablet,extended release 24 hr losartan 100 mg tablet 100 mg PO DAILY #90 tab 01/29/21 fluticasone propionate 50 2 spray NS DAILY #16 g 02/09/21 mcg/actuation nasal spray,suspension cephalexin 500 mg PO QID 7 Days #28 cap 02/26/21 Allergies Allergy/AdvReac Type Severity Reaction Status Date / Time aspirin Allergy Severe HIVES Verified 02/26/21 02:00 NSAIDS (Non-Steroidal Allergy Severe HIVES Verified 02/26/21 02:00 Anti-Inflamma latex Allergy Intermediate redness Verified 02/26/21 02:00 enalapril AdvReac Severe SEVERE LEG Verified 02/26/21 02:00 PAIN cetirizine [From Zyrtec] AdvReac Knee pain Verified 02/26/21 02:00 lisinopril AdvReac cough Verified 02/26/21 02:00 General Stated Complaint: Urinary RAYRAY: 3 Review of Systems All systems reviewed & are unremarkable except as noted in HPI and below PFSH Medical History Abdominal abscess (07/29/16) Abnormal mammogram of right breast 09/04/15 cat3, 6month f/u scheduled at [facility] Acute meniscal injury of right knee (03/13/17) Acute UTI Colon polyp (07/12/02) adenomas polyps Cough Elevated blood sugar level 08/19/16 Endometrial cancer, grade I (07/09/16) hysterectomy planned fro 07/15 at [facility] 07/16/16 S/P HYSTERECTOMY Essential hypertension (07/27/13) Hyperglycemia (08/19/16) Hyperlipidemia (07/31/12) Hypothyroidism (07/31/12) Migraine Migraine Obesity (08/12/14) Obstructive sleep apnea syndrome (07/30/11) uses CPAP Phlegm in throat Psoriasis Stress UTI (urinary tract infection) Vitamin B 12 deficiency (08/03/14) Surgical History Appendectomy (~1982) Bilateral salpingectomy with oophorectomy (07/16/16) [facility] cystectomy (~1987) uterine History of bilateral ligation of fallopian tubes History of bilateral tubal ligation 04/21/82 Hysterectomy, Laproscopic (07/16/16) [facility] Ligation of fallopian tube (~1982) S/P appendectomy 04/21/82 Status post appendectomy Uterine fibroids removed (~1987) Family History Mother , 76 Essential hypertension Heart disease Hyperlipidemia Myocardial infarction Father , 96 Essential hypertension Heart disease Hyperlipidemia Stroke Sister Essential hypertension Heart disease Stroke Brother , 59 Essential hypertension Heart disease Hyperlipidemia Brain cancer Brother Diabetes Essential hypertension Hyperlipidemia Brother Essential hypertension Brother Essential hypertension Hyperlipidemia Maternal Grandfather , 93 Heart disease Paternal Grandfather , 81 Essential hypertension Heart disease Maternal Grandmother , 54 Rheumatoid arthritis Paternal Grandmother , 80 Heart disease Social History Smoking/Tobacco Use Status: Former Tobacco Use Quit Date: 04/21/78 Tobacco: How many years used: 15 Second Hand Exposure: Yes Smoking risk assessment performed?: Yes Alcohol Intake: current Alcohol Intake frequency: holidays/special occasions only Caregiver/Support person: No Household members: children Communication Needs: None Do you need help understanding health information?: Never Pets and animals: No Current gender identity: female What is your relationship status?: Panel score (0-1 are the most socially isolated patients): 0 Seatbelt use: always Drive intox or ride 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 3.ENT: Atraumatic external nose and ears. Moist MM. Neck: Symmetric, trachea midline, No thyromegaly. 4.CVS: +S1/S2, No murmurs or gallops. Peripheral pulses 2+ and equal in all extremities. Brisk capillary refill in all extremities. 5.RESP: Unlabored respiratory effort. Clear to auscultation bilaterally. No wheezes rales or rhonchi 6.GI: Soft, Nontender/Nondistended, No hepatosplenomegaly. No guarding or rebound. No flank or CVA tenderness 7.MSK: Normocephalic/Atraumatic, Extremities w/o deformity or ttp No cyanosis or clubbing, Normal movement of all extremities 8.Skin: Warm, Dry. No rashes or lesions. 9.Neuro: transfer coordinator II-XII grossly intact. Sensation grossly intact, no focal neurologic deficits. 10.Psych: (AAO) x3. Appropriate mood and affect Course Vital Signs Vital signs: Vital Signs Temperature 36.7 C 02/26/21 01:55 Pulse 120 H 02/26/21 01:55 Respiratory Rate 20 02/26/21 01:55 Blood Pressure 175/82 H 02/26/21 01:55 Pulse Oximetry 98 02/26/21 01:55 Temperature 36.7 C 02/26/21 01:55 Temperature Source Skin 02/26/21 01:55 Pulse 120 H 02/26/21 01:55 Respiratory Rate 20 02/26/21 01:55 Blood Pressure 175/82 H 02/26/21 01:55 Blood Pressure Position Sitting 02/26/21 01:55 Pulse Oximetry 98 02/26/21 01:55 Oxygen Delivery Method Room Air 02/26/21 01:55 Oxygen Flow Rate 0 02/26/21 01:55 Pain Level 0 02/26/21 01:55 Lab/Test Results Lab/Test Results: Laboratory Tests Range/Units 02/26/21 01:55 Urine Color (Yellow) Yellow Urine Clarity (Clear) Sl Cloudy Urine pH (5-8) 7.5 Ur Specific Victor (1.005-1.025) 1.020 Urine Protein (Negative) mg/dL 100 H Urine Ketones (Negative) mg/dL Negative Urine Blood (Negative) Moderate H Urine Nitrite (Negative) Negative Urine Bilirubin (Negative) Negative Urine Urobilinogen (Up TO 0.2) EU/dL 0.2 Ur Leukocyte Esterase (Negative) Moderate H Urine Glucose (Negative) mg/dL Negative
[2021-02-26 02:06] LABS: Bacteria Many HPF (Negative); C & S Indicated? Yes; Casts Negative LPF (Negative); Crystals Negative HPF (Negative); Epithelial Cells Few HPF (Negative); Mucus Negative (Negative); WBC >50 HPF (0-5)
[2021-02-26] MEDS: Cephalexin 500 MG CAP, 4 CAPS/BTL PO (02:17)
[2021-02-26] MEDS: Phenazopyridine 100 MG TAB, 2 TABS/BTL PO (02:25)
== END 2021-02-26 02:29 | disposition home or self-care (01) ==
PROVIDERS: Emergency Provider Student in an Organized Health Care Education/Training Program; PCP Family Medicine
DX: N39.0 Urinary tract infection, site not specified (principal); B96.1 Klebsiella pneumoniae [K. pneumoniae] as the cause of diseases classified elsewhere
CPT/HCPCS: 87077; 99283; 81003; 81015; 87086; 87186

== ENCOUNTER 2021-06-05 02:14 | Outpatient (CLI) | payer MEDICARE, BC, SELFPAY ==
[2021-06-05 11:51] LABS: Bilirubin Negative (Negative); Blood Trace-intact (Negative); Clarity Clear (Clear); Glucose Negative (Negative); Ketones Negative (Negative); Leukocyte Esterase Trace (Negative); Nitrite Negative (Negative); Specific Gravity 1.015 (1.005-1.025); Urobilinogen 0.2 EU/dL (Up TO 0.2)
[2021-06-05 11:58] LABS: Bacteria Negative HPF (Negative); C & S Indicated? Yes; Casts Negative LPF (Negative); Crystals Negative HPF (Negative); Epithelial Cells Rare HPF (Negative); Mucus Negative (Negative); RBC 0-2 HPF (0-2)
[2021-06-05 12:06] LABS: Hemoglobin A1C 5.7 % (<5.7)
[2021-06-05 12:30] LABS: TSH (W/Ref FT4) 2.53 uIU/mL (0.36-3.74)
== END 2021-06-05 02:15 | disposition home or self-care (01) ==
LOC: LBO 02:14
PROVIDERS: PCP Family Medicine; Visit Provider Family Medicine
DX: E55.9 Vitamin D deficiency, unspecified (principal); E11.9 Type 2 diabetes mellitus without complications; I10 Essential (primary) hypertension; R68.89 Other general symptoms and signs; L40.9 Psoriasis, unspecified
CPT/HCPCS: 36415; 82306; 81003; 81015; 83036; 84443; 87086

== ENCOUNTER 2021-09-19 18:53 | Outpatient (REF) | payer MEDICARE, BC, SELFPAY ==
[2021-09-19 13:41] LABS: Bilirubin Negative (Negative); Blood Small (Negative); Clarity Cloudy (Clear); Glucose Negative (Negative); Ketones Negative (Negative); Leukocyte Esterase Small (Negative); Nitrite Negative (Negative); Urobilinogen 0.2 EU/dL (Up TO 0.2)
[2021-09-19 13:54] LABS: Bacteria Rare HPF (Negative); C & S Indicated? Yes; Crystals Negative HPF (Negative); Epithelial Cells Rare HPF (Negative); Mucus Negative (Negative); Other Cells Rare Renal (Negative); RBC 0-2 HPF (0-2); WBC >50 HPF (0-5)
== END 2021-09-19 18:54 | disposition home or self-care (01) ==
LOC: LBN 18:53
PROVIDERS: PCP Family Medicine; Visit Provider Nurse Practitioner Family
DX: R39.89 Other symptoms and signs involving the genitourinary system (principal)
CPT/HCPCS: 81003; 81015; 87086

== ENCOUNTER 2021-10-30 16:57 | Outpatient (REF) | payer MEDICARE, BC, SELFPAY ==
[2021-10-30 13:14] LABS: Bilirubin Negative (Negative); Blood Small (Negative); Clarity Sl Cloudy (Clear); Glucose Negative (Negative); Ketones Negative (Negative); Leukocyte Esterase Small (Negative); Nitrite Negative (Negative); Specific Gravity 1.015 (1.005-1.025); Urobilinogen 0.2 EU/dL (Up TO 0.2)
[2021-10-30 13:33] LABS: Bacteria Few HPF (Negative); C & S Indicated? Yes; Casts Negative LPF (Negative); Crystals Negative HPF (Negative); Epithelial Cells Rare HPF (Negative); Mucus Negative (Negative)
== END 2021-10-30 16:58 | disposition home or self-care (01) ==
LOC: LBN 16:57
PROVIDERS: PCP Family Medicine; Visit Provider Physician Assistant
DX: R39.89 Other symptoms and signs involving the genitourinary system (principal)
CPT/HCPCS: 81003; 81015; 87086

== ENCOUNTER 2022-01-25 01:45 | Outpatient (CLI) | payer MEDICARE, BC, SELFPAY ==
--- OUTSIDE RECORDS SUMMARY | 2022-01-25 01:48 | XMS_ITS | Encounter Summary ---
:[address] [facility] [place] Address [address] [place] [address] Care Team Providers Name Role Phone Eve Londono MD Primary Care Provider Reason for Visit Reason Comments Follow-up endometrial cancer Encounter Details Date Type Department Care Team Description 02/14/2020 Office Visit [facility] Will Banegas MD Endometrial cancer ([facility]) (Primary Dx ); Gynecologic Oncology 111 [facility] for screening for malignant neoplasm of vagina - [facility] [address] [place] [address] Pavilion, [place] [address] (Wo rk) Social History Tobacco Use Types Packs/Day Years Used Date Former Smoker Smokeless Tobacco: Never Used Alcohol Use Standard Drinks/Week Comments No 0 (1 standard drink = 0.6 oz pure alcoho l) Sex Assigned at Date Recorded Female 09/25/2021 8:41 EDT documented as of this encounter Last Filed Vital Signs Vital Sign Reading Time Taken Comments Blood Pressure 128/70 02/14/2020 1435 EDT Pulse - - Temperature - - Respiratory Rate - - Oxygen Saturation - - Inhaled Oxygen Concentration - - Weight 99.5 kg (219 lb 6.4 oz) 02/14/2020 1435 EDT Height 152 cm (4' 11.84) 02/14/2020 1435 EDT Body Mass Index 43.07 02/14/2020 1435 EDT documented in this encounter Functional Status Functional Status Response Date of Assessment Are you deaf or do you have serious difficulty hearing? No 07/16/2016 Are you blind or do you have serious difficulty seeing, No 07/16/2016 even when wearing glasses? Do you have serious difficulty walking or climbing No 07/16/2016 stairs? (5 years old or older) Do you have difficulty dressing or bathing? (5 years old No 07/16/2016 or older) Because of a physical, mental, or emotional condition, do No 07/16/2016 you have difficulty doing errands alone such as visiting a doctor's office or shopping? (15 years old or older) Cognitive Status Response Date of Assessment Because of a physical, mental, or emotional condition, do No 07/16/2016 you have serious difficulty concentrating, remembering, or making decisions? (5 years old or older) documented as of this encounter Progress Notes Will Banegas MD - 02/14/2020 2567 EDT Just a note to keep you up-to-date with regards to your patient Roseann Wilcox. In May 2019, vaginal biopsies were highly suspicious of recurrent endometrial cancer. At that time, Roseann decided that she did not want any chemotherapy but wanted to try Megace 40 mg 4 times a day. Today, she presents for a continue surveillance visit. Review of systems: She denies any vaginal bleeding or discharge. She is tolerating the Megace without any difficulty. She has no shortness of breath or chest pain. She has no GI or concerns. Oncologic history: ?? Roseann Wilcox is a 73 y.o. woman who returns today for surveillance for a history of stage 1A grade 1 endometrial cancer, with subsquent recurrence at her vaginal cuff. . ?? Cancer treatment history: 1. Initially diagnosed on 07/15/2016 at time of da Freddie-assisted total laparoscopic hysterectomy, bilateral salpingo-oophorectomy, and bilateral sentinel hypogastric lymph node biopsies 2. Neoadjuvant treatment: NA 3. Surgery: Robotic assisted total laparoscopic hysterectomy, bilateral salpingo-oopherectomy, sentinel lymph node dissection. 4. Adjuvant chemotherapy: NA 5. Recurrence: 06/16/18, presented with vaginal bleeding, found to have large mass at her vaginal cuff. Biopsy consistent with recurrent endometrial cancer. 6. Additional lines of treatment: Radiation therapy 07/31/18-09/09/18, 45 Gy in 25 fractions followedby boost to recurrent disease ?? Current Outpatient Medications Medication Sig Dispense Refill ??? acetaminophen (TYLENOL) 500 mg tablet Take 500 mg by mouth every 6 hours as needed for Pain. ??? cholecalciferol, Vitamin D3, 1,000 unit tablet Take 400 Units by mouth daily. ??? cyanocobalamin (VITAMIN B-12) 500 mcg tablet Take 1,000 mcg by mouth daily. ??? docusate sodium (COLACE) 100 mg capsule Take 1 Cap by mouth 2 times daily. 60 Cap 2 ??? fexofenadine (RADHA) 60 mg tablet Take 180 mg by mouth at bedtime. ??? fluocinonide (LIDEX) 0.05 % cream Apply topically 2 times daily. ??? fluticasone (FLONASE) 50 mcg/actuation nasal spray Instill 100 mcg into both nostrils as needed.Reported on 07/15/2016 ??? folic acid (FOLVITE) 400 mcg tablet Take 800 mcg by mouth daily. ??? hydroCHLOROthiazide (HYDRODIURIL) 25 mg tablet Take 25 mg by mouth daily. ??? hydrocortisone 0.5 % cream Apply topically once a week. ??? levothyroxine (SYNTHROID) 25 mcg tablet Take 25 mcg by mouth daily. ??? losartan (COZAAR) 100 mg tablet Take 100 mg by mouth daily. ??? Magnesium 250 mg tablet Take 1 Tab by mouth daily. ??? megestroL (MEGACE) 40 mg tablet Take 1 Tab by mouth 4 times daily. 120 Tab 3 ??? Methylcellulose, Laxative, 500 mg tablet Take 500 mg by mouth daily. ??? mupirocin (BACTROBAN) 2 % ointment Apply topically as needed. ??? nystatin-triamcinolone (MYCOLOG II) cream Apply topically 4 times daily as needed. Reported on 07/15/2016 ??? oxymetazoline HCl (NASAL SPRAY 12 HOUR NASAL) by nasal route. ??? polyethylene glycol 3350 (MIRALAX ORAL) Take by mouth. ??? Potassium Gluconate 595 mg (99 mg) tablet Take 1 Tab by mouth daily. ??? PSYLLIUM HUSK, ASPARTAME, ORAL Take by mouth daily. ??? Selenium 200 mcg tablet Take 200 mg by mouth daily. ??? simvastatin (ZOCOR) 20 mg tablet Take 20 mg by mouth at bedtime. No current facility-administered medications for this visit. Allergies Allergen Reactions ??? Aspirin Hives convulsions ??? Enalapril Leg cramps ??? Latex Rash redness ??? Other - See Comments Dust, Mold ??? Zyrtec [Cetirizine] Joint pain and cough with phlegm Social History Socioeconomic History ??? Marital status: Spouse name: Not on file ??? Number of children: Not on file ??? Years of education: Not on file ??? Highest education level: Not on file Occupational History ??? Not on file Social Needs ??? Financial resource strain: Not on file ??? Food insecurity Worry: Not on file Inability: Not on file ??? Transportation needs Medical: Not on file Non-medical: Not on file Tobacco Use ??? Smoking status: Former Smoker ??? Smokeless tobacco: Never Used Substance and Sexual Activity ??? Alcohol use: No ??? Drug use: Not on file ??? Sexual activity: Not on file Lifestyle ??? Physical activity Days per week: Not on file Minutes per session: Not on file ??? Stress: Not on file Relationships ??? Social connections Talks on phone: Not on file Gets together: Not on file Attends rastafari service: Not on file Active member of club or organization: Not on file Attends meetings of clubs or organizations: Not on file Relationship status: Not on file ??? Intimate partner violence Fear of current or ex partner: Not on file Emotionally abused: Not on file Physically abused: Not on file Forced sexual activity: Not on file Other Topics Concern ??? Not on file Social History Narrative ??? Not on file Review of Systems As dictated above and ROS is otherwise negative. Objective: BP 128/70 Ht 152 cm (59.84) Wt 99.5 kg (219 lb 6.4 oz) LMP (LMP Unknown) BMI 43.07 kg/m?? Physical Exam Pelvic exam demonstrated that there is no evidence of lesions on the external genitalia. Periurethral perianal area is grossly within normal limits. Vaginal exam demonstrates that the vaginal pena aresmooth without any exophytic lesions. Vaginal Pap smear was performed without any difficulty. Machine Biller for the physical exam was Jane Assessment & Plan: Today, I explained to Roseann that I am pleased with how she is doing. I explained to her that her physical exam is clinically without any evidence of disease. I recommend that we follow-up with these Pap smear results performed today. If these results continue to be negative for any obvious malignancy, then we could place her on surveillance visits every 4 to 6 months with eric Lemons PA. As always, I thank you for allowing me to participate in the care of your patients. I will keep you informed of her progress. Sincerely, Will Banegas MD Director, Division of Beef Cattle Specialist Oncology [facility] documented in this encounter Miscellaneous Notes Result QuickNote - Aydin Flood RN - 02/14/2020 6058 EDT Pt notified of pap results and plan for f/u. AYDIN FLOOD RN 03/20/2020 9:55 documented in this encounter Plan of Treatment Upcoming Encounters Date Type Specialty Care Team Description 03/28/2022 Office Visit Gynecologic Oncology Kush Liz PA-C 111 [facility], [facility] [address] [place], [place] [address] (Wo rk) documented as of this encounter Procedures Procedure Name Priority Date/Time Associated Diagnosis Comme nts PAP TEST Routine 02/14/2020 14:53 Encounter for Results fo r this EDT screening for procedure are in malignant neoplasm the resul ts of vagina section. Endometrial cancer (HCC-CMS) HPV DNA DETECTION Today 02/14/2020 14:53 Encounter for Resul ts for this WITH GENOTYPING, EDT screening for procedure are in PCR, THINPREP malignant neoplasm the resu lts of vagina section. Endometrial cancer (HCC-CMS) documented in this encounter Results HPV DNA DETECTION WITH GENOTYPING, PCR, THINPREP (02/14/2020 14:53 EDT) Pathologist Sig nature Specimen Source Vaginal [facility] HPV Risk Type 16, PCR Negative [facility] HPV High Risk Type Negative [facility], PcR LABORATORIES HPV Other High Risk Negative [facility] Types, PCR LABORATORIES Specimen Pap Test - Entire vagina (body structure ) Narrative This result has an attachment that is no t available. Performing Organization Address City/State/ZIP Code Phon e Number [facility] [address] [place] [address] PAP TEST (02/14/2020 14:53 EDT) Specimens A. Vagina , ThinPrep [facility] Imaging System with CENTER Manual Evaluation LABORATORY SERVICES Specimen Adequacy Satisfactory for Evaluation - transformation zone component present [facility] Scant squamous epithelial component, con tamination present, possibly lubricant CENTER LABORATORY SERVICES General Negative for [facility] Categorization intraepithelial [place] lesion or malignancy LABORATORY SERVICES Attestation . [facility] Electronically CENTER signed by NEEL Johansen CT(ASCP ) on SERVICES 03/17/2020 at 0 922 Clinical History history of stage 1A [facility] grade 1 endometrial CENTER cancer, with LABORATORY subsquent recurrence SERVICES at vaginal cuff HPV The results for the HPV with Genotyping, PCR, ThinPrep are Negative for the HPV Risk Type 16, PCR, Negative for the HPV High Risk Type 18, PcR, and Negative for the HPV Other High Risk Types, PCR. Testi [facility] ng was performed on specimen [id number] and was resulted on 03/17/2020 0922 EST by PAULA MASON. [place] LABORATORY SERVICES Performing Lab [facility] LAB [facility]OR[facility] SERVICES Scanned Images [facility] LABOR[facility] SERVICES Specimen Pap Test - Entire vagina (body structure ) Performing Organization Address City/State/ZIP Code Phon e Number [facility] [address] [place] [address] SERVICES documented in this encounter Visit Diagnoses Diagnosis Endometrial cancer (HCC-CMS) ([facility]) - [facility] Malignant neoplasm of corpus uteri, exce pt isthmus Encounter for screening for malignant ne oplasm of vagina Special screening for malignant neoplasm s, vagina documented in this encounter Care Teams Geology Teacher Relationship Specialty Start Date End Date Eve Londono MD PCP - General 04/18/17 [address] [place], [place] [id number] documented as of this encounter
--- OUTSIDE RECORDS SUMMARY | 2022-01-25 01:48 | XMS_ITS | Encounter Summary ---
:1945 Author Organization [facility] Address [address] [place] [address] Care Team Providers Name Role Phone Eve Londono MD Primary Care Provider Reason for Visit Reason Comments Follow-up history of endometrial cance r Encounter Details Date Type Department Care Team Description 09/26/2020 Office Visit [facility] Vesta Liz of Gynecologic Oncology HUMAIRA Zeng endometrial cancer - [address] (Primary Dx) [address] [place], [place] [id number] [place] [address] [facility] [address] [place] [address] (Wo rk) Social History Tobacco Use Types Packs/Day Years Used Date Former Smoker Smokeless Tobacco: Never Used Alcohol Use Standard Drinks/Week Comments No 0 (1 standard drink = 0.6 oz pure alcoho l) Sex Assigned at Date Recorded Female 09/25/2021 8:41 EDT documented as of this encounter Last Filed Vital Signs Vital Sign Reading Time Taken Comments Blood Pressure 122/80 09/26/2020 1428 EDT Pulse - - Temperature - - Respiratory Rate - - Oxygen Saturation - - Inhaled Oxygen Concentration - - Weight 97.3 kg (214 lb 6.4 oz) 09/26/2020 1428 EDT Height 152.4 cm (5') 09/26/2020 1428 EDT Body Mass Index 41.87 09/26/2020 1428 EDT documented in this encounter Functional Status [...] documented as of this encounter Progress Notes Vesta Liz PA-C - 09/26/2020 7150 EDT Subjective: Patient ID: Roseann Wilcox is an 75 y.o. female. Chief Complaint Patient presents with ??? Follow-up history of endometrial cancer HPI Roseann Wilcox is a 75 y.o. woman who presents today with vaginal bleeding, with the following history: Cancer treatment history: ?1. Initially diagnosed on 07/15/2016 at time of da Freddie- assisted total laparoscopic hysterectomy, bilateral salpingo-oophorectomy, and bilateral sentinel hypogastric lymph node biopsies ?2. Neoadjuvant treatment: NA ?3. Surgery: Robotic assisted total laparoscopic hysterectomy, bilateral salpingo-oopherectomy, sentinel lymph node dissection. ?4. Adjuvant chemotherapy: NA ?5. Recurrence: 06/16/18, presented with vaginal bleeding, found to have largemass at her vaginal cuff. ??Biopsy consistent with recurrent endometrial cancer. ?6. Additional lines of treatment: Radiation therapy 07/31/18-09/09/18, 45 Gy in 25 fractions followed by boost to recurrent disease 7. On 05/11/19, on routine surveillance was found to have a vaginal lesion on her vaginal wall. Biopsy was highly suspicious for recurrent endometrial cancer. Initiated on Megace, 40 mg 4x daily, continues on this at this time. She was last seen by Dr. Banegas on 02/14/20, at that time with no lesions on vaginal exam, and she hada pap smear which was NIL, with follow up plan made to return in 4-6 months for ongoing surveillance. She did return once in the interim in March, having experienced an episode of light vaginal bleeding that occurred after she had lifted a heavy couch out of the way. An exam at that time was negative for any evidence of any vaginal lesions, and a Pap smear was negative. She denies having had any further episodes since that time. Notes that soon after our last visit, she had been to her local ED, she experienced some blurred vision, as was found to have hypokalemia, now is on potassium. She is doing well on the Megace, and denies having any weight gain, nor any chest pain, shortness of breath. Today, she states that she feels well, and specifically denies any changes in her weight, chest pain, shortness of breath, nausea or vomiting, abdominal pain or distension, changes in her bowel or bladder patterns, or vaginal bleeding, discharge, itching or irritation. States that she is up to date on her colonoscopies and mammograms. ? Patient Active Problem List Diagnosis ??? Endometrial cancer (HCC-CMS) Past Medical History: Diagnosis Date ??? Cancer (HCC-CMS) ??? High cholesterol ??? HTN (hypertension) ??? Obesity ??? Sleep apnea Past Surgical History: Procedure Laterality Date ??? HYSTERECTOMY 07/16/2016 Robotic-assisted total laparoscopic hysterectomy, bilateral salpingooophorectomy, division of Meckel's diverticulum, injection of ICG dye, bilateral sentinel lymph node dissection, and cystoscopy ??? SALPINGO-OOPHORECTOMY Bilateral 07/16/2016 Robotic-assisted total laparoscopic hysterectomy, bilateral salpingooophorectomy, division of Meckel's diverticulum, injection of ICG dye, bilateral sentinel lymph node dissection, and cystoscopy Family History Problem Relation Age of Onset ??? Melanoma Paternal Aunt Social Social History Tobacco Use ??? Smoking status: Former Smoker ??? Smokeless tobacco: Never Used Substance Use Topics ??? Alcohol use: No ??? Drug use: Not on file Current Outpatient Medications on File Prior to Visit Medication Sig Dispense Refill ??? acetaminophen (TYLENOL) 500 mg tablet Take 500 mg by mouth every 6 hours as needed for Pain. ??? AMLODIPINE BESYLATE, BULK, MISC 5 mg by misc (non-drug; combo route) route. ??? cholecalciferol, Vitamin D3, 1,000 unit tablet Take 400 Units by mouth daily. ??? cyanocobalamin (VITAMIN B-12) 500 mcg tablet Take 1,000 mcg by mouth daily. ??? docusate sodium (COLACE) 100 mg capsule Take 1 Cap by mouth 2 times daily. 60 Cap 2 ??? DULCOLAX, BISACODYL, ORAL Take by mouth once a week. ??? fexofenadine (RADHA) 60 mg tablet Take [...] by mouth 4 times daily. 120 Tab 11 ??? mupirocin (BACTROBAN) 2 % ointment Apply topically as needed. ??? nystatin-triamcinolone (MYCOLOG II) cream Apply topically 4 times daily as needed. Reported on 07/15/2016 ??? polyethylene glycol 3350 (MIRALAX ORAL) Take by mouth. ??? Potassium Gluconate 595 mg (99 mg) tablet Take 1 Tab by mouth daily. ??? Selenium 200 mcg tablet Take 200 mg by mouth daily. ??? simvastatin (ZOCOR) 20 mg tablet Take 20 mg by mouth at bedtime. No current facility-administered medications on file prior to visit. Allergies Allergen Reactions ??? Aspirin Hives convulsions ??? Enalapril Leg cramps ??? Latex Rash redness ??? Other - See Comments Dust, Mold ??? Zyrtec [Cetirizine] Joint pain and cough with phlegm Review of Systems Constitutional: Negative. HENT: Negative. Eyes: Negative. Respiratory: Negative. Cardiovascular: Negative. Gastrointestinal: Negative. Endocrine: Negative. Musculoskeletal: Negative. Skin: Negative. Allergic/Immunologic: Negative. Neurological: Negative. Hematological: Negative. Psychiatric/Behavioral: Negative. - See HPI Objective: BP 122/80 Ht 152.4 cm (60) Wt 97.3 kg (214 lb 6.4 oz) LMP (LMP Unknown) BMI 41.87 kg/m?? Physical Exam Constitutional: She is oriented to person, place, and time. She appears well- developed and well-nourished. No distress. HENT: Head: Normocephalic and atraumatic. Eyes: Pupils are equal, round, and reactive to light. Neck: Normal range of motion. No thyromegaly present. Cardiovascular: Normal rate, regular rhythm and normal heart sounds. Exam reveals no gallop and no friction rub. No murmur heard. Pulmonary/Chest: Effort normal and breath sounds normal. No respiratory distress. She has no wheezes. She has no rales. Abdominal: Soft. Bowel sounds are normal. She exhibits no distension. There is no abdominal tenderness. There is no rebound. Genitourinary: Vagina normal. There is no rash, tenderness, lesion or injury on the right labia. There is no rash, tenderness, lesion or injury on the left labia. No vaginal discharge, erythema, tenderness or bleeding. No vaginal erythema, tenderness or bleeding. No signs of injury in the vagina. Speculum exam reveals that the vaginal cuff is well healed, without any evidence of masses or or exophytic lesions. Bimanual exam is without any masses or nodularity. Cervix, uterus and adnexa are surgically absent. Musculoskeletal: Normal range of motion. Lymphadenopathy: She has no cervical adenopathy. She has no axillary adenopathy. Neurological: She is alert and oriented to person, place, and time. Skin: Skin is warm and dry. No erythema. No pallor. Psychiatric: She has a normal mood and affect. Her behavior is normal. Judgment and thought content normal. Assessment: History of recurrent endometrial cancer, currently maintained on Megace, and doing well. Plan: Roseann was seen today for follow-up. Diagnoses and all orders for this visit: History of endometrial cancer Today, I discussed with Roseann that she is without evidence of disease recurrence on clinical exam, and she is without worrisome symptoms. Per the most recent SGO guidelines, I did not obtain a vaginalpap smear, as there were no concerning lesions on her vaginal exam. She will follow up for her next s urveillance visit in 6 months time, we discussed the signs and symptoms that would be concerning forrecurrent endometrial cancer (vaginal bleeding, abdominal pain, pressure, bloating or changes in bowel or bladder habits), and she knows to call our office for sooner evaluation if she should experience any symptoms such as these. Vesta Liz PA-C I spent a total of 25 minutes on the date of this encounter meeting with the patient and reviewing documentation/coordinating care as described in the above note. No procedures were performed at the time of the visit. documented in this encounter Plan of Treatment Upcoming Encounters Date Type Specialty Care Team Description 03/28/2022 Office Visit Gynecologic Oncology Kush Liz PA-C 111 [facility], [facility], [address] [place], [place] [address] (Wo rk) documented as of this encounter Visit Diagnoses Diagnosis History of endometrial cancer - Primary Personal history of malignant neoplasm o f other parts of uterus documented in this encounter Care Teams Sample Clerk Relationship Specialty Start Date End Date Eve Londono MD PCP - General 04/18/17 [address] [place] [address] documented as of this encounter
--- OUTSIDE RECORDS SUMMARY | 2022-01-25 01:48 | XMS_ITS | Encounter Summary ---
:1945 Author Organization [facility] Address [address] [place] [address] Care Team Providers Name Role Phone Eve Londono MD Primary Care Provider Encounter Details Date Type Department Care Team Description 10/01/2021 Orders Only [facility] Minna Patel MD Radiology - Main Cam pus [address] [place] [address] [place], [place] [address] [phone] Social History Tobacco Use Types Packs/Day Years Used Date Former Smoker Smokeless Tobacco: Never Used Alcohol Use Standard Drinks/Week Comments No 0 (1 standard drink = 0.6 oz pure alcoho l) Sex Assigned at Date Recorded Female 09/25/2021 8:41 EDT documented as of this encounter Functional Status Functional Status Response [...] or older) documented as of this encounter Plan of Treatment Upcoming Encounters Date Type Specialty Care Team Description 03/28/2022 Office Visit Gynecologic Oncology Kush Liz PA-C 111 [facility], [facility] 4 [place], [place] [address] (Wo rk) documented as of this encounter Visit Diagnoses Not on filedocumented in this encounter Care Teams Sales And Marketing Associate Relationship Specialty Start Date End Date Eve Londono MD PCP - General 04/18/17 [address] [place] [address] documented as of this encounter
--- OUTSIDE RECORDS SUMMARY | 2022-01-25 01:48 | XMS_ITS | Encounter Summary ---
:1945 Author Organization [facility] Address [address] [place] [address] Care Team Providers Name Role Phone Eve Londono MD Primary Care Provider Encounter Details Date Type Department Care Team Description 09/29/2021 Orders Only [facility] Cece Galarza MD Radiology - Main Cam pus [address] [place], [place] [id number] [place] [address] [phone] Social History Tobacco Use Types Packs/Day Years [...] Visit Gynecologic Oncology Kush Liz PA-C [address] [facility], [facility] [address] [place], [place] [address] (Wo rk) documented as of this encounter Visit Diagnoses Not on filedocumented in this encounter Care Teams Investigative Research Specialist Relationship Specialty Start Date End Date Eve Londono MD PCP - General 04/18/17 [address] [place] [address] documented as of this encounter
--- OUTSIDE RECORDS SUMMARY | 2022-01-25 01:48 | XMS_ITS | Encounter Summary ---
:[address] [facility] Address [address] [place] [address] Care Team Providers Name Role Phone Eve Londono MD Primary Care Provider Reason for Visit Reason Onset Date Comments Update 07/15/2019 Encounter Details Date Type Department Care Team Description 07/15/2019 Telephone [facility] Vesta Liz, Update Gynecologic Oncology - [address] [address] [address], [place], [place] [address] (Wo rk) Social History Tobacco Use Types [...] or older) documented as of this encounter Miscellaneous Notes Telephone Encounter - Jamin Mansfield - 07/15/2019 0957 EDT TC to patient to give her information on her next appointment :10/13 @ 2:30 pm. Patient wanted to report that she is making sure to do plenty of walking to be sure of self care forclots and is tolerating meds well. Patient know to call us if anything changes in the meantime. documented in this encounter Plan of Treatment Upcoming Encounters Date Type Specialty Care Team Description 03/28/2022 Office Visit Gynecologic Oncology Kush Liz PA-C 111 [facility], [facility], [address] [place], [place] [address] (Wo rk) documented as of this encounter Visit Diagnoses Not on filedocumented in this encounter Care Teams Rubber Curer Relationship Specialty Start Date End Date Eve Londono MD PCP - General 04/18/17 [address] [place] [address] documented as of this encounter
--- OUTSIDE RECORDS SUMMARY | 2022-01-25 01:48 | XMS_ITS | Encounter Summary ---
:1945 Author Organization [facility] Address [address] [place] [address] Care Team Providers Name Role Phone Eve Londono MD Primary Care Provider Reason for Visit Reason Onset Date Comments Other 10/02/2020 Encounter Details Date Type Department Care Team Description 10/02/2020 Telephone [facility] Micah Liz, Other Services - [facility] PA-C 111 [facility] [address] [place], [place] [id number] [place] [address] [place], [address] [place], [place] [address] (Wo rk) Social History [...] this encounter Miscellaneous Notes Telephone Encounter - Vesta Liz PA-C - 10/02/2020 1738 EDT UA result received, completely normal, no evidence of UTI. Main complaint at this time is lower back pain, is taking tylenol 1 tablet every 4 hours. Advised likely musculoskeletal back pain, follow up with pcp if no improvement. Telephone Encounter - Vesta Liz PA-C - 10/02/2020 1010 EDT TC returned to patient. Symptom started on Friday, feels a fullness in her lower abdomen, or really burning, but discomfort with urination. Notes that this started after she was doing a lot of cleaning and lifting while preparing for company. Denies fevers. Has lower back pain, but no flank pain. Has increased urinary frequency, but thinks related to drinking more. No sensation of incomplete emptying. Will have pt go to her local labe ([facility]) to give clean catch UA/micro/culture if indicated. Please send order, and will follow up later to ensure that we get results. Telephone Encounter - Vashti Dupont - 10/02/2020 0856 EDT Are you calling for gynecological, obstetric, or reproductive care? Gynecological Have you been seen here before? Yes If yes, who do you see (Refer to if cant remember)? Vesta Liz Reason for Call as described by patient: Patient calling in to report that she is having sx of a UTI- isn't sure if she needs to be seen or just a prescription. What is the best phone number for us to reach you back at? [phone] Does this number have a voicemail, is it ok to leave a detailed message? Yes Vashti Dupont 10/02/2020 8:56 documented in this encounter Plan of Treatment Upcoming Encounters Date Type Specialty Care Team Description 03/28/2022 Office Visit Gynecologic Oncology Kush Liz PA-C 111 [facility], [facility] 4 [place], [place] [address] (Wo rk) documented as of this encounter Visit Diagnoses Diagnosis Dysuria - Primary documented in this encounter Care Teams Weather Teacher Relationship Specialty Start Date End Date Eve Londono MD PCP - General 04/18/[address] [place] [address] documented as of this encounter
--- OUTSIDE RECORDS SUMMARY | 2022-01-25 01:48 | XMS_ITS | Encounter Summary ---
:1945 Author Organization [facility] Address [address] [place] [address] Care Team Providers Name Role Phone Eve Londono MD Primary Care Provider Reason for Visit Reason Comments Advice Only Encounter Details Date Type Department Care Team Description 06/15/2019 Initial consult [facility] Will Banegas MD Endometrial cancer Gynecologic Oncology [address] [place] ([facility]) ([facility] [address]) [address] [place] [address] [address], [place] [address] (Wo rk) Social History Tobacco Use Types Packs/Day Years Used Date Former Smoker Smokeless Tobacco: Never Used Alcohol Use Standard Drinks/Week Comments No 0 (1 standard drink = 0.6 oz pure alcoho l) Sex Assigned at Date Recorded Female 09/25/2021 8:41 EDT documented as of this encounter Last Filed Vital Signs Vital Sign Reading Time Taken Comments Blood Pressure 130/78 06/15/2019 1244 EST Pulse - - Temperature - - Respiratory Rate - - Oxygen Saturation - - Inhaled Oxygen Concentration - - Weight 101.2 kg (223 lb) 06/15/2019 1244 EST Height 152 cm (4' 11.84) 06/15/2019 1244 EST Body Mass Index 43.78 06/15/2019 1244 EST documented in this encounter Functional Status Functional [...] or older) documented as of this encounter Ordered Prescriptions Prescription Sig Dispensed Refills Start Date End Date megestroL (MEGACE) 40 mg Take 1 Tab by mouth 120 Tab 2 08/20/2019 tabletIndications: 4 times daily for Endometrial cancer 90 days. (HCC[facility]) ([facility]) documented in this encounter Progress Notes Will Banegas MD - 06/15/2019 1300 EST Just a note to keep you up-to-date with regards to your patient Roseann Wilcox. Ms. Wilcox presents today to discuss her CAT scan results and also to discuss treatment options given the fact that she recently had vaginal biopsies which demonstrated atypical glandular cells highly suspicious for recurrent endometrial cancer. Oncologic history: Roseann Wilcox is a 73 y.o. woman who returns today for surveillance for a history of stage 1A grade 1 endometrial cancer, with subsquent recurrence at her vaginal cuff. . Cancer treatment history: 1. Initially diagnosed on [...] 25 fractions followedby boost to recurrent disease 7. Eligibility for clinical trial.NA 8. Imaging history: CT (02/04/19), negative for recurrent disease Pelvic MRI 07/03/18: vaginal mass, no pelciv lymphadenopathy. Current Outpatient Medications Medication Sig Dispense Refill [...] Take 1 Tab by mouth 4 times daily for 90 days. 120 Tab 2 ??? Methylcellulose, Laxative, 500 mg tablet Take [...] ??? Other - See Comments Dust, Mold Social History Socioeconomic History ??? Marital status: Spouse name: Not on file ??? Number of children: Not on file ??? Years of education: Not on file ??? Highest education level: Not on file Occupational History ??? Not on file Social Needs ??? Financial resource strain: Not on file ??? Food insecurity: Worry: Not on file Inability: Not on file ??? Transportation needs: Medical: Not on file Non-medical: Not on file Tobacco Use ??? Smoking status: Former Smoker ??? Smokeless tobacco: Never Used Substance and Sexual Activity ??? Alcohol use: No ??? Drug use: Not on file ??? Sexual activity: Not on file Lifestyle ??? Physical activity: Days per week: Not on file Minutes per session: Not on file ??? Stress: Not on file Relationships ??? Social connections: Talks on phone: Not on file Gets together: Not on file Attends yazidism service: Not on file Active member of club or organization: Not on file Attends meetings of clubs or organizations: Not on file Relationship status: Not on file ??? Intimate partner violence: Fear of current or ex partner: Not on file Emotionally abused: Not on file Physically abused: Not on file Forced sexual activity: Not on file Other Topics Concern ??? Not on file Social History Narrative ??? Not on file Review of Systems As dictated above and ROS is otherwise negative. Objective: BP 130/78 Ht 152 cm (59.84) Wt (!) 101.2 kg (223 lb) BMI 43.78 kg/m?? Physical Exam [employer] [address] [employer] [address] for the physical exam was Joe Pelvic exam: Bimanual exam today demonstrates that the vaginal pena are smooth there is no evidenceof any exophytic lesions. Assessment & Plan: Today, I had a lengthy discussion with Ms. Wilcox about her current situation. I explained to her that her most recent vaginal biopsies demonstrates that she has atypical glandular cells suspicious forrecurrent endometrial carcinoma. I explained to her that I am unclear of the value of bringing her back to the operating room for more vaginal biopsies. I am concerned that she may have recurrent disease in the vagina. I did explain to her that the CAT scan of the abdomen pelvis do not demonstrate anyevidence of metastatic disease. With regards to treatment options: We discussed the following 1. Do nothing and just continue to monitor her. 2. Chemotherapy. I discussed with her the possibility of treating her with chemotherapy given her biopsy results 3. Radiation therapy. I discussed with her that I can review her case with our radiation oncology team to see whether or not she is eligible for any further radiation therapy. 4. Hormonal therapy. I discussed with her the possibility of treating her with hormonal therapy consisting of Megace. The potential risk and benefits of Megace were reviewed with her. After being on Megace for 1 to 2 months, I explained to her that I would consider re-biopsying her. Each of the above treatment options were reviewed with Ms. Wilcox. After answering all of her questions, she states that she would does not want to proceed with another vaginal biopsy but would like totry hormonal therapy. She states that at this time, given her family situation, she would like to avoid chemotherapy. I will reach out to our radiation oncologist to see whether or not Ms. Wilcox is eligible for any further radiation therapy. As always, I thank you for allowing me to participate in the care of your patients. I will keep you informed of her progress. Sincerely, Will Banegas MD Director, Division of Pharmacist Technician Oncology [facility] Total visit time today was 10 minutes. 100% time was spent counseling and managing her care [id number] as described above. documented in this encounter Plan of Treatment Upcoming Encounters Date Type Specialty Care Team Description 03/28/2022 Office Visit Gynecologic Oncology Kush Liz PA-C 111 [facility] [place] venue [facility], [facility], [facility] 4 [place], [place] [address] (Wo rk) documented as of this encounter Visit Diagnoses Diagnosis Endometrial cancer (HCC-CMS) (FORMERLY [facility]) - Sonia reggie Malignant neoplasm of corpus uteri, exce pt isthmus documented in this encounter Care Teams College Sports Assistant Relationship Specialty Start Date End Date Eve Londono MD PCP - General 04/18/17 [address] [place] [address] documented as of this encounter
--- OUTSIDE RECORDS SUMMARY | 2022-01-25 01:48 | XMS_ITS | Clinical Summary ---
:1945 Author Organization [facility] Address [address] [place] [address] Care Team Providers Name Role Phone Eve Londono MD Primary Care Provider Allergies Active Allergy Reactions Severity Noted Date Comments Aspirin Hives High 07/04/2016 convulsions Enalapril Medium 07/04/2016 Leg cramps Latex Rash Medium 07/04/2016 redness Other - See Comments 11/18/2017 Dust, M old Cetirizine 10/11/2019 Joint pain and cough with phlegm Medications Medication Sig Dispensed Refills Start Date End Date Status fexofenadine (RADHA) 60 Take 180 mg by 0 Active mg tablet mouth at bedtime. hydroCHLOROthiazide Take 25 mg by 0 Active (HYDRODIURIL) 25 mg mouth daily. tablet levothyroxine (SYNTHROID) Take 25 mcg by 0 Active 25 mcg tablet mouth daily. cyanocobalamin (VITAMIN Take 1,000 mcg 0 Active B-12) 500 mcg tablet by mouth daily. nystatin-triamcinolone Apply topically 0 Active (MYCOLOG II) cream 4 times daily as needed. Reported on 07/15/2016 cholecalciferol, Vitamin Take 400 Units 0 Active D3, 1,000 unit tablet by mouth daily. folic acid (FOLVITE) 400 Take 800 mcg by 0 Active mcg tablet mouth daily. Magnesium 250 mg tablet Take 1 Tab by 0 Active mouth daily. Potassium Gluconate 595 Take 1 Tab by 0 Active mg (99 mg) tablet mouth daily. hydrocortisone 0.5 % Apply topically 0 Active cream once a week. fluticasone (FLONASE) 50 Instill 100 mcg 0 Active mcg/actuation nasal spray into both nostrils as needed. Reported on 07/15/2016 mupirocin (BACTROBAN) 2 % Apply topically 0 Active ointment as needed. simvastatin (ZOCOR) 20 mg Take 20 mg by 0 Active tabletIndications: hold mouth at until 2 weeks post bedtime. radiation therapy Selenium 200 mcg tablet Take 200 mg by 0 Active mouth daily. docusate sodium (COLACE) Take 1 Cap by 60 Cap 2 07/16/2016 Active 100 mg capsule mouth 2 times daily. polyethylene glycol 3350 Take by mouth. 0 Active (MIRALAX ORAL) fluocinonide (LIDEX) 0.05 Apply topically 0 Active % cream 2 times daily. acetaminophen (TYLENOL) Take 500 mg by 0 Active 500 mg tablet mouth every 6 hours as needed for Pain. losartan (COZAAR) 100 mg Take 100 mg by 0 Active tablet mouth daily. AMLODIPINE BESYLATE, 5 mg by misc 0 Active BULK, MISC (non-drug; combo route) route. DULCOLAX, BISACODYL, ORAL Take by mouth 0 Active once a week. megestroL (MEGACE) 40 mg Take 1 Tab by 120 Tab 11 05/01/2020 Active tablet mouth 4 times daily. potassium chloride SA Take 20 mEq by 0 Active (K-DUR) 20 mEq tablet mouth 2 times daily. metoprolol SUCCinate 25 Take by mouth. 0 Active mg capsule,sprinkle,ER 24hr fluticasone propionate Inhale 2 Puffs 0 Active (FLOVENT) 220 as directed mcg/actuation inhaler every 12 hours. sodium chloride (SALINE by nasal route. 0 Active NASAL MIST NASAL) atorvastatin (LIPITOR) 10 Take 10 mg by 0 Active mg tablet mouth daily. calcium carbonate Take by mouth 0 Active (CALCIUM 600 ORAL) daily. vitamin E 400 unit Take 400 Units 0 Active capsule by mouth daily. Active Problems Patient Care Coordination Note Formatting of this note might be differe nt from the original. Pt is a CPAP user. Problem Noted Date Endometrial cancer ([facility]) 07/15/2016 Cancer Staging: Pathologic stage from : FIGO Stage IA (pT1a, pN0, cM0) - Signed by Lillian Rivas MD, on 07/06/2018 Surgical History Surgery Date Site/Laterality Comments HYSTERECTOMY 07/16/2016 Robotic-assisted total laparoscopic hysterectomy, bi lateral salpingooophorec mariluz, division of Meckel's diverti culum, injection of ICG dye, bilater al sentinel lymph node dissection, and cystoscopy SALPINGO-OOPHORECTOMY 07/16/2016 Bilateral Robotic-as sisted total laparoscopic hysterectomy, bi lateral salpingooophorec mariluz, division of Meckel's diverti culum, injection of ICG dye, bilater al sentinel lymph node dissection, and cystoscopy Medical History Medical History Date Comments HTN (hypertension) Obesity Sleep apnea High cholesterol Cancer (HCC-CMS) (HCC) Family History Medical History Relation Name Comments Melanoma Paternal Aunt Relation Name Status Comments Paternal Aunt Social History Tobacco Use Types Packs/Day Years Used Date Former Smoker Smokeless Tobacco: Never Used Alcohol Use Standard Drinks/Week Comments No 0 (1 standard drink = 0.6 oz pure alcoho l) Sex Assigned at Date Recorded Female 09/25/2021 8:41 EDT Last Filed Vital Signs Vital Sign Reading Time Taken Comments Blood Pressure 164/92 09/26/2021 1506 EDT Pulse 80 09/01/2018 1603 EDT Temperature 37 ??C (98.6 ??F) 08/11/2018 0911 EDT Respiratory Rate 16 09/01/2018 1603 EDT Oxygen Saturation 98% 08/11/2018 0911 EDT Inhaled Oxygen Concentration - - Weight 105.7 kg (233 lb) 09/26/2021 1506 EDT Height 152.4 cm (5') 03/28/2021 1427 EST Body Mass Index 45.5 03/28/2021 1427 EST Plan of Treatment Upcoming Encounters Date Type Specialty Care Team Description 03/28/2022 Office Visit Gynecologic Oncology Kush Liz PA-C [address] [place] [address] venue [facility], [facility], [address] [place], [place] [address] (Wo rk) Health Maintenance Due Date Last Done Comments Hepatitis C Screen 1945 COVID-19 Vaccine (#1) 1945 Fall Risk Screening 06/15/2020 06/15/2019 Insurance Payer Benefit Plan / Subscriber ID Effective Phone Address T ype Group Dates MEDICARE MEDICARE A/B [id number] 2011-Prese [address] Medicare [id number] [place] [address] [facility] [id number] 2019-Prese [phone] [address] [facility] [employer] [address] [place] [address] Roseann Wilcox Personal/Family Self 1945 [address] (Home) [place] [address] Roseann Wilcox Personal/Family Self 1945 [address] (Home) [place] [address] Advance Directives For more information, please contact: [phone] Latest Code Status on File Code Status Date Activated Date Inactivated Comments Full Code 07/15/2016 19:52 07/16/2016 13:56 Reason for decision includes: Full code consistent with over all plan of care Who participated in the discussion? Not Discussed Full Code 07/15/2016 11:01 07/15/2016 19:52 Reason for decision includes: Full code consistent with over all plan of care Who participated in the discussion? Not Discussed Care Teams Accounting Specialist Relationship Specialty Start Date End Date Eve Londono MD PCP - General 04/18/17 [address] [place], [place] [address]
--- OUTSIDE RECORDS SUMMARY | 2022-01-25 01:48 | XMS_ITS | Encounter Summary ---
:1945 Author Organization [facility] Address [address] [place] [address] Care Team Providers Name Role Phone Eve Londono MD Primary Care Provider Encounter Details Date Type Department Care Team Description 06/15/2019 Travel Social History Tobacco Use Types Packs/Day Years [...] Visit Gynecologic Oncology Kush Liz PA-C [address] [place] [address] venue [facility], [facility], Level [address] [place], [place] [address] (Wo rk) documented as of this encounter Visit Diagnoses Not on filedocumented in this encounter Care Teams Deputy Commonwealth'S Attorney Relationship Specialty Start Date End Date Eve Londono MD PCP - General 04/18/17 [address] [place] [address] documented as of this encounter
--- OUTSIDE RECORDS SUMMARY | 2022-01-25 01:48 | XMS_ITS | Encounter Summary ---
:1945 Author Organization [facility] Address [address] [place] [address] Care Team Providers Name Role Phone Eve Londono MD Primary Care Provider Reason for Visit Reason Onset Date Comments Results 06/07/2021 Encounter Details Date Type Department Care Team Description 06/07/2021 Telephone [facility] Women's Micah Liz, Results Services - [facility] PA-C 111 [facility] 111 [place], [place] [address] [place] [address] [place], [address] [place], [place] [address] (Wo rk) Social History [...] Telephone Encounter - Vesta Liz PA-C - 06/07/2021 1229 EST Spoke with Roseann, she was at her lab having routine blood work done, there was an order for a UA from September when she had had some symptoms, but apparantly it was still active, and they collected a urine sample, which showed trace LE, negative nitrites or blood and ran a culture that showed <10,000 mixed organisms and 10-50,000 urogenital silvia. Roseann denies symptoms of dysuria, urgency or frequency. Advised her that she does not have a UTI, should not be prescribed antibiotics. I called an left a message at her pcp office as well to clarify this. Telephone Encounter - Luann Westfall - 06/07/2021 1156 EST Pt calling to make sure we received her Urinalysis results (labs scanned in to pt's chart this morning) because she was informed that she has a UTI. Pt can be reached at [phone]. documented in this encounter Plan of Treatment Upcoming Encounters Date Type Specialty Care Team Description 03/28/2022 Office Visit Gynecologic Oncology Kush Liz PA-C [address] [place] [address] venue [facility], [facility], Level [address] [place], [place] [address] (Wo rk) documented as of this encounter Visit Diagnoses Not on filedocumented in this encounter Care Teams Aircraft Servicer Relationship Specialty Start Date End Date Eve Londono MD PCP - General 04/18/17 [address] [place] [address] documented as of this encounter
--- OUTSIDE RECORDS SUMMARY | 2022-01-25 01:48 | XMS_ITS | Encounter Summary ---
:1945 Author Organization [facility] Address [address] [place] [address] Care Team Providers Name Role Phone Eve Londono MD Primary Care Provider Encounter Details Date Type Department Care Team Description 05/04/2020 Documentation Visit [facility] Linnea Liz Gynecologic Oncology - TOM Zeng [address] [address] [facility] [phone] [facility] 4 [place] [address] (Wo rk) Social History Tobacco Use Types Packs/Day Years Used Date Former Smoker Smokeless Tobacco: Never Used Alcohol Use Standard Drinks/Week Comments No 0 (1 standard drink = 0.6 oz pure alcoho l) Sex Assigned at Date Recorded Female 09/25/2021 8:41 EDT COVID-19 Exposure Response Date Recorded In the last month, have you been in contact with No / Unsure 04/18/2020 12:20 EST someone who was confirmed or suspected to have Coronavirus / COVID-19? documented as of this encounter Functional Status [...] encounter Progress Notes Vesta Liz PA-C - 05/04/2020 1523 EST Outside UA result received, it was entirely negative. (no blood, leukocyte esterace, or other findings). Pt notified.Denies any further bleeding. documented in this encounter Plan of Treatment Upcoming Encounters Date Type Specialty Care Team Description 03/28/2022 Office Visit Gynecologic Oncology Kush Liz PA-C [address] [place] A [facility], [address] [place], [place] [address] (Wo rk) documented as of this encounter Visit Diagnoses Not on filedocumented in this encounter Care Teams Selector Packer Relationship Specialty Start Date End Date Eve Londono MD PCP - General 04/18/[address] [place] [address] documented as of this encounter
--- OUTSIDE RECORDS SUMMARY | 2022-01-25 01:48 | XMS_ITS | Encounter Summary ---
:1945 Author Organization [facility] Address [address] [place] [address] Care Team Providers Name Role Phone Eve Londono MD Primary Care Provider Encounter Details Date Type Department Care Team Description 10/11/2019 Travel Social History Tobacco Use Types Packs/Day Years Used Date Former Smoker Smokeless Tobacco: Never Used Alcohol Use Standard Drinks/Week Comments No 0 (1 standard drink = 0.6 oz pure alcoho l) Sex Assigned at Date Recorded Female 09/25/2021 8:41 EDT COVID-19 Exposure Response Date Recorded In the last month, have you been in contact with No / Unsure 10/11/2019 14:11 EDT someone who was confirmed or suspected to [...] Visit Gynecologic Oncology Kush Liz PA-C [address] [place] [address] [facility], [address] [place], [place] [address] (Wo rk) documented as of this encounter Visit Diagnoses Not on filedocumented in this encounter Care Teams Surface Supervisor Relationship Specialty Start Date End Date Eve Londono MD PCP - General 04/18/17 [address] [place] [address] documented as of this encounter
--- OUTSIDE RECORDS SUMMARY | 2022-01-25 01:48 | XMS_ITS | Encounter Summary ---
:1945 Author Organization [facility] Address [address] [place] [address] Care Team Providers Name Role Phone Eve Londono MD Primary Care Provider Reason for Visit Reason Comments Other Follow up and EMB Encounter Details Date Type Department Care Team Description 10/11/2019 Office Visit [facility] Will Banegas MD Endometrial cancer Gynecologic Oncology [address] [place] [address] ([facility]) (Primary - [facility] [address] Dx) [address] [place] [address] Pavilion, [place] [address] (Wo rk) Social History Tobacco [...] / COVID-19? documented as of this encounter Last Filed Vital Signs Vital Sign Reading Time Taken Comments Blood Pressure 140/66 10/11/2019 1412 EDT Pulse - - Temperature - - Respiratory Rate - - Oxygen Saturation - - Inhaled Oxygen Concentration - - Weight 99 kg (218 lb 3.2 oz) 10/11/2019 1412 EDT Height - - Body Mass Index 42.84 06/15/2019 1244 EST documented in this encounter [...] Take 1 Tab by mouth 120 Tab 3 05/01/2020 tablet 4 times daily. documented in this encounter Progress Notes Will Banegas MD - 10/11/2019 1430 EDT Just a note to keep you up-to-date with regards to your patient Roseann Wilcox. As you will recall, in May 2019, I had discussed with Ms. Wilcox that her vaginal biopsies were highly suspicious forrecurrent endometrial cancer. At that time, she elected not to proceed with chemotherapy but wanted to try Megace at 40 mg 4 times a day. She presents today for follow-up. Review of systems: She denies any vaginal bleeding. She states that she is only had 3 episodes of vaginal spotting since the last time I saw her. She denies any significant nausea or vomiting. She denies any urinary or GI complaints. Oncologic history: Roseann Wilcox is a 73 [...] Take 1 Tab by mouth daily. ??? Methylcellulose, Laxative, 500 mg tablet Take [...] file Gets together: Not on file Attends protestant service: Not on file Active member of [...] and ROS is otherwise negative. Objective: BP 140/66 Wt 99 kg (218 lb 3.2 oz) LMP (LMP Unknown) BMI 42.84 kg/m?? Physical Exam Steel Tester for the physical exam was Vance Pelvic exam demonstrates the external genitalia has no evidence of any exophytic lesions. The vaginaon digital exam demonstrates no evidence of any exophytic lesions. The vagina was prepped in the usual sterile fashion and a biopsy of the left vaginal wall was performed. Periurethral and perianal area are grossly within normal limits. Assessment & Plan: Today, I explained to Roseann that I am pleased with how she is doing. She appears to be tolerating the Megace well. On exam today, there is no obvious exophytic lesions in the vagina. Vaginal biopsy was performed today. I explained to Ms. Wilcox that we will continue the Megace and I will call her with the results. As always, I thank you for allowing me to participate in the care of your patients. I will keep you informed of her progress. Sincerely, Will Banegas MD Director, Division of Rn Embedded Oncology [facility] documented in this encounter Plan of Treatment Upcoming Encounters Date Type Specialty Care Team Description 03/28/2022 Office Visit Gynecologic Oncology Kush Liz PA-C [address] [facility], [address] [place], [place] [address] (Wo rk) documented as of this encounter Procedures Procedure Name Priority Date/Time Associated Diagnosis Comme [facility] SURGICAL PATHOLOGY Routine 10/11/2019 14:36 Endometrial cancer Results for this EDT ([facility]) procedure are i n the results section. documented in this encounter Results SURGICAL PATHOLOGY (10/11/2019 14:36 EDT) Final Diagnosis A. VAGINA, LEFT SIDEWALL, BIOPSY: [facility] Electronically - Squamous mucosa with mild chronic and focal acute inflammation and subepithelial fibrosis. CENTER signed by Jaciel , - No malignancy identified. LABORATORY Jessie Seals MD on SERVICES 10/13/2019 at 12 55 Attestation There was significant [facility] Electr onically resident/fellow CENTER signed by Tana crocker, involvement in the LABORATORY Jessie Seals MD on diagnostic evaluation SERVICES 020 at 1255 of this case. By the signature below, the attending physician certifies that they have personally conducted a gross and/or microscopic examination of the described specimens and rendered or confirmed the above diagnosis. 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 Received in formalin labe lled with proper patient identification (initials P, M) and left vaginal sidewall is a crescent-shaped portion mccormick-pink tissue (0.4 x 0.2 x 0.2 cm). The specimen is submitted entirely in A1. [facility] 10/11/2019 16:32 LABORATORY SERVICES Resident/Fellow: Omar Olivera DO [facility] LABORATORY SERVICES Scanned Images [facility] LABORATORY SERVICES Specimen Tissue - Entire vagina (body structure) Performing Organization Address City/State/ZIP Code Phon e Number [facility] LABORATORY [address] [place] [address] SERVICES documented in this encounter Visit Diagnoses Diagnosis Endometrial cancer (HCC-CMS) (HCC) - [facility] Malignant neoplasm of corpus uteri, exce pt isthmus documented in this encounter Care Teams Item Processor Relationship Specialty Start Date End Date Eve Londono MD PCP - General 04/18/17 [address] [place] [address] documented as of this encounter
--- OUTSIDE RECORDS SUMMARY | 2022-01-25 01:48 | XMS_ITS | Encounter Summary ---
:1945 Author Organization [facility] Address [address] [place] [address] Care Team Providers Name Role Phone Eve Londono MD Primary Care Provider Reason for Visit Reason Onset Date Comments Medication Management 08/13/2019 Encounter Details Date Type Department Care Team Description 08/13/2019 Telephone [facility] Will Banegas MD Medication Management Gynecologic Oncology - [address] [place] [address], [address] [place], [place] [id number] [place] [address] [phone] (Wo rk) Social History Tobacco Use [...] Notes Telephone Encounter - Jamin Mansfield - 08/13/2019 0937 EDT TC from [facility]. Pt states she was told to take the Megace for 2 months which is just about done. Thescript did have a 3rd month so she refilled it. Wants to know if she should do the 3rd month or how to proceed. She is tolerating it well- no side effects and all is going well. Let her know that myself or a nurse would touch base. documented in this encounter Plan of Treatment Upcoming Encounters Date Type Specialty Care Team Description 03/28/2022 Office Visit Gynecologic Oncology Kush Liz PA-C 111 [facility], [address] [place] [address] (Wo rk) documented as of this encounter Visit Diagnoses Not on filedocumented in this encounter Care Teams Booth Operator Relationship Specialty Start Date End Date Eve Londono MD PCP - General 04/18/17 [address] [place] [address] documented as of this encounter
--- OUTSIDE RECORDS SUMMARY | 2022-01-25 01:48 | XMS_ITS | Encounter Summary ---
:1945 Author Organization [facility] Address [address] [place] [address] Care Team Providers Name Role Phone Eve Londono MD Primary Care Provider Encounter Details Date Type Department Care Team Description 04/18/2020 Travel Social History Tobacco Use Types Packs/Day [...] Visit Gynecologic Oncology Kush Liz PA-C [address] [place] [facility], [facility], Level [address] [place], [place] [address] (Wo rk) documented as of this encounter Visit Diagnoses Not on filedocumented in this encounter Care Teams Training Program Developer Relationship Specialty Start Date End Date Eve Londono MD PCP - General 04/18/17 [address] [place] [address] documented as of this encounter
--- OUTSIDE RECORDS SUMMARY | 2022-01-25 01:48 | XMS_ITS | Encounter Summary ---
:1945 Author Organization [facility] Address [address] [place] [address] Care Team Providers Name Role Phone Eve Londono MD Primary Care Provider Encounter Details Date Type Department Care Team Description 07/13/2019 Documentation Visit [facility] Vida Lima , Gynecologic Oncology - RN [address] [place] [address] [place] [address] Social History Tobacco Use Types Packs/Day Years [...] documented as of this encounter Progress Notes Vida Lima, RN - 07/13/2019 1047 EDT Per communication from Dr Banegas. Possibility of additional vaginal radiation reviewed with Dr Rivas. Dr Rivas advises she would NOT be able to offer any additional RT to this area. Plan is for pt to remain on megace for 2-3 months and then have re-evaluation in office to assess area of previous bx. VIDA LIMA RN 07/13/2019 10:49 documented in this encounter Plan of Treatment Upcoming Encounters Date Type Specialty Care Team Description 03/28/2022 Office Visit Gynecologic Oncology Kush Liz PA-C [address] [facility], [facility], [facility] [address] [place], [place] [phone] (Wo rk) documented as of this encounter Visit Diagnoses Not on filedocumented in this encounter Care Teams Felt Cutter Relationship Specialty Start Date End Date Eve Londono MD PCP - General 04/18/17 [address] [place] [address] documented as of this encounter
--- OUTSIDE RECORDS SUMMARY | 2022-01-25 01:48 | XMS_ITS | Encounter Summary ---
:1945 Author Organization [facility] Address [address] [place] [address] Care Team Providers Name Role Phone Eve Londono MD Primary Care Provider Reason for Visit Reason Onset Date Comments Medication Reaction 06/21/2019 Encounter Details Date Type Department Care Team Description 06/21/2019 Telephone [facility] Will Banegas MD Medication Reaction Gynecologic Oncology - [address] [place] [address], [address], [address] [place], [place] [id number] [place] [address] [phone] (Wo rk) Social History Tobacco Use [...] this encounter Miscellaneous Notes Telephone Encounter - Aydin Flood RN - 06/28/2019 1135 EDT Follow up call placed to pt to assess Sx. No answer. VM left requesting a cb. AYDIN FLOOD RN 06/28/2019 11:35 elephone Encounter - Aydin Flood RN - 06/21/2019 1606 EST Return call to pt who reports SOB upon exertion. Denies chest pain. She states that she is currentlygetting over an URI and was recently diagnosed with chronic sinusitis. She reports a temp of 100.1 yesterday which decreased to 99.0 last night. She has not taken her temp today. She has a productive cough. She also has c/o swollen BLE. Denies accompanied pain, swelling or redness. She states that hadnot been wearing compression stockings. LE swelling decreases upon elevation. Discussed with Dr. Banegas who is okay with watching Sx for the next week. This RN will reach out to ptat that time to re-evaluate. If Sx persist, may need to additional workup to r/o PE. Pt in agreementwith plan and will CB with any worsening Sx. She will resume wearing compression stockings. She willpresent to ED with any acute/severe chest pain/SOB. AYDIN FLOOD RN 06/21/2019 16:44 elephone Encounter - Jamin Mansfield - 06/21/2019 1011 EST TC from patient regarding some worsening side effects since starting Megace. This was started 06/16. She was told to call with abnormal symptoms related to medication. Patient is having worsening what seems like trouble breathing that is caused by any walking or exertion. Also started BP medication right before as well. Legs have been swelling. Propping at night and return to normal by morning. Leaving the house at 10:30 to bring her to an appointment. It is OK to leave a full detailedmessage. Will also leave cell phone turned on while away from the house and can be reached there at [phone]. Making sure to get up every 1-2 hours to walk around the house per Dr. Banegas. No spotting. Let her know that a message has been placed to nursing. documented in this encounter Plan of Treatment Upcoming Encounters Date Type Specialty Care Team Description 03/28/2022 Office Visit Gynecologic Oncology Kush Liz PA-C 111 [facility], [facility], Level [address] [place], [place] [phone] (Wo rk) documented as of this encounter Visit Diagnoses Not on filedocumented in this encounter Care Teams Aerographer Relationship Specialty Start Date End Date Eve Londono MD PCP - General 04/18/17 [address] [place] [address] documented as of this encounter
--- OUTSIDE RECORDS SUMMARY | 2022-01-25 01:48 | XMS_ITS | Encounter Summary ---
:1945 Author Organization [facility] Address [address] [place] [address] Care Team Providers Name Role Phone Eve Londono MD Primary Care Provider Reason for Visit Reason Onset Date Comments Follow-up 06/29/2019 Encounter Details Date Type Department Care Team Description 06/29/2019 Telephone [facility] Gynecologic Steve Flood RN Follow-up Oncology - [facility] [address] [place] [address] Social History Tobacco Use Types [...] Telephone Encounter - Aydin Flood RN - 06/29/2019 1531 EDT Call to pt for status update. Roseann is feeling much better. She states that she had a really bad cold Last week combined with chronic sinusitis. She has an appt with ENT scheduled for this .She has been afebrile. Reports SOB upon exertion to be somewhat improved, although still present. Denies chest pain but does continue to feel a heaviness in her chest. BLE swelling has improved. Pt reports that her LE are fine in the AM with swelling increasing throughout the day. Swelling decreases upon elevation. Pt is now wearing her compression stocking daily. Pt reports an episode of scant vaginal spotting on 06/24/19. No spotting noted since this time. Advised that update would be relayed to Dr. Banegas. AYDIN FLOOD RN 06/29/2019 15:36 documented in this encounter Plan of Treatment Upcoming Encounters Date Type Specialty Care Team Description 03/28/2022 Office Visit Gynecologic Oncology Kush Liz PA-C [address] [place] [facility], [facility], Level [address] [place], [place] [phone] (Wo rk) documented as of this encounter Visit Diagnoses Not on filedocumented in this encounter Care Teams Manager Of Project Management Relationship Specialty Start Date End Date Eve Londono MD PCP - General 04/18/17 [address] [place] [address] documented as of this encounter
--- OUTSIDE RECORDS SUMMARY | 2022-01-25 01:48 | XMS_ITS | Encounter Summary ---
:1945 Author Organization [facility] Address [address] [place] [address] Care Team Providers Name Role Phone Eve Londono MD Primary Care Provider Reason for Visit Reason Onset Date Comments Medical Records 10/19/2020 Encounter Details Date Type Department Care Team Description 10/19/2020 Telephone [facility] Aydin Flood RN [facility] Records Gynecologic Oncology - [facility] [address] [place] [address] Social History Tobacco Use Types [...] Telephone Encounter - Aydin Flood RN - 10/19/2020 1114 EDT Call Placed to [facility] to request ED visit notes from . AYDIN FLOOD RN 10/19/2020 11:15 documented in this encounter Plan of Treatment Upcoming Encounters Date Type Specialty Care Team Description 03/28/2022 Office Visit Gynecologic Oncology Kush Liz PA-C [address] [place] [facility], [facility], Level [address] [place], [place] [address] (Wo rk) documented as of this encounter Visit Diagnoses Not on filedocumented in this encounter Care Teams Electron Microprobe Operator Relationship Specialty Start Date End Date Eve Londono MD PCP - General 04/18/17 [address] [place] [address] documented as of this encounter
--- OUTSIDE RECORDS SUMMARY | 2022-01-25 01:48 | XMS_ITS | Encounter Summary ---
:1945 Author Organization [facility] Address [address] [place] [address] Care Team Providers Name Role Phone Eve Londono MD Primary Care Provider Reason for Visit Reason Comments Follow-up Surveillance, hx endometrial cancer Encounter Details Date Type Department Care Team Description 03/28/2021 Office Visit [facility] Vesta Lizo aury of Gynecologic Oncology HUMAIRA Zeng endometrial cancer - [address] (Primary Dx) [address] [place], [place] [address] [place] [address] [place], [address] [place] [address] (Wo rk) Social History Tobacco Use Types Packs/Day Years Used Date Former Smoker Smokeless Tobacco: Never Used Alcohol Use Standard Drinks/Week Comments No 0 (1 standard drink = 0.6 oz pure alcoho l) Sex Assigned at Date Recorded Female 09/25/2021 8:41 EDT documented as of this encounter Last Filed Vital Signs Vital Sign Reading Time Taken Comments Blood Pressure 124/68 03/28/2021 1427 EST Pulse - - Temperature - - Respiratory Rate - - Oxygen Saturation - - Inhaled Oxygen Concentration - - Weight 102.7 kg (226 lb 6.4 oz) 03/28/2021 1427 EST Height 152.4 cm (5') 03/28/2021 1427 EST Body Mass Index 44.22 03/28/2021 1427 EST documented in this encounter Functional Status [...] encounter Progress Notes Vesta Liz PA-C - 03/28/2021 1430 EST Subjective: Patient ID: Roseann Wilcox is an 75 y.o. female. Chief Complaint Patient presents with ??? Follow-up Surveillance, hx endometrial cancer HPI Roseann Wilcox is a [...] on this at this time. She was seen by Dr. Banegas on 02/14/20, at that time with no lesions on vaginal exam, and she had a pap smear which was NIL, with follow up plan made to return in 4-6 months for ongoing surveillance. Shedid return once in the interim in March 2020, having experienced an episode of light vaginal [...] nor any chest pain, shortness of breath. In October 2020, she presented to her local ED with left-sided pain behind her left knee as well as following her leg. A lower extremity ultrasound was performed, was negative for any evidence of DVT. Shestates that this symptom has resolved. Today, she states that she feels well, and specifically denies any changes in her weight, chest pain, shortness of breath, nausea or vomiting, abdominal pain or distension, changes in her bowel or bladder patterns, or vaginal bleeding, discharge, itching or irritation. States that she is up to date on her colonoscopies and mammograms, those are done at her local hospital. Her last imaging was in May 2019, at the time of retinal recurrence, there was no evidence of metastatic disease at that time. ? Patient Active Problem List Diagnosis ??? Endometrial cancer (HCC-CMS) (HCC) Past Medical History: Diagnosis Date ??? Cancer (HCC-CMS) (HCC) ??? High cholesterol ??? HTN (hypertension) ??? [...] both nostrils as needed.Reported on 07/15/2016 ??? fluticasone propionate (FLOVENT) 220 mcg/actuation inhaler Inhale 2 Puffs as directed every 12 hours. ??? folic acid (FOLVITE) 400 mcg tablet [...] 4 times daily. 120 Tab 11 ??? metoprolol SUCCinate 25 mg capsule,sprinkle,ER 24hr Take by mouth. ??? mupirocin (BACTROBAN) 2 % ointment Apply topically as needed. ??? nystatin-triamcinolone (MYCOLOG II) cream Apply topically 4 times daily as needed. Reported on 07/15/2016 ??? polyethylene glycol 3350 (MIRALAX ORAL) Take by mouth. (Patient not taking: Reported on 03/28/2021) ??? potassium chloride SA (K-DUR) 20 mEq tablet Take 20 mEq by mouth 2 times daily. ??? Potassium Gluconate 595 mg (99 mg) tablet Take 1 Tab by mouth daily. (Patient not taking: Reported on 03/28/2021) ??? Selenium 200 mcg tablet Take 200 mg by mouth daily. ??? simvastatin (ZOCOR) 20 mg tablet Take 20 mg by mouth at bedtime. ??? sodium chloride (SALINE NASAL MIST NASAL) by nasal route. No current facility-administered medications on file prior [...] Psychiatric/Behavioral: Negative. - See HPI Objective: BP 124/68 (BP Cuff Location: Left arm, BP Patient Position: Sitting, BP Cuff Sizes: Adult, long) Ht 152.4 cm (60) Wt (!) 102.7 kg (226 lb 6.4 oz) LMP (LMP Unknown) BMI 44.22 kg/m?? Physical Exam Constitutional: She is oriented to person, place, and time. She appears well- developed and well-nourished. No distress. HENT: Head: Normocephalic and atraumatic. Eyes: Pupils are equal, round, and reactive to light. Neck: No thyromegaly present. Cardiovascular: Normal rate, regular [...] uterus and adnexa are surgically absent. Musculoskeletal: General: Normal range of motion. Cervical back: Normal range of motion. Lymphadenopathy: She has [...] for this visit: History of endometrial cancer Other orders - potassium chloride SA (K-DUR) 20 mEq tablet; Take 20 mEq by mouth 2 times daily. - metoprolol SUCCinate 25 mg capsule,sprinkle,ER 24hr; Take by mouth. - fluticasone propionate (FLOVENT) 220 mcg/actuation inhaler; Inhale 2 Puffs as directed every 12 hours. - sodium chloride (SALINE NASAL MIST NASAL); by nasal route. Today, I discussed with Roseann that she [...] should experience any symptoms such as these. She was noted to have a bit of weight gain of about 5 kg since her last visit, she does note that she has been less mobile over the past year, but is now increasing her mobility. We will watch her diet, and we will continue to monitor her weight. She denies needing a new refill on her Megace, stating that was refilled by her primary care provider. Advised to continue cancer screening, with annual mammography and self breast awareness. Vesta Liz PA-C I spent a total [...] Visit Gynecologic Oncology Kush Liz PA-C [address] [facility], [address] [place], [place] [phone] (Wo rk) documented as of this encounter Visit Diagnoses Diagnosis History of endometrial cancer - Primary Personal history of malignant neoplasm o f other parts of uterus documented in this encounter Historical Medications This list may reflect changes made after this encounter. Medication Sig Dispensed Refills Start Date End Date sodium chloride (SALINE by nasal route. 0 NASAL MIST NASAL) fluticasone propionate Inhale 2 Puffs as 0 (FLOVENT) 220 directed every 12 mcg/actuation inhaler hours. metoprolol SUCCinate 25 Take by mouth. 0 mg capsule,sprinkle,ER 24hr potassium chloride SA Take 20 mEq by mouth 2 0 (K-DUR) 20 mEq tablet times daily. added in this encounter Care Teams Under Ground Miner Relationship Specialty Start Date End Date Eve Londono MD PCP - General 04/18/17 [address] [place] [address] documented as of this encounter
--- OUTSIDE RECORDS SUMMARY | 2022-01-25 01:48 | XMS_ITS | Encounter Summary ---
:1945 Author Organization [facility] Address [address] [place] [address] Care Team Providers Name Role Phone Eve Londono MD Primary Care Provider Encounter Details Date Type Department Care Team Description 08/20/2019 Orders Only [facility] Rosaura Mahajan Endome trial cancer Gynecologic Oncology - RN (HCC- CMS) (Primary Dx) Main [place] [address] [place] [address] Social History Tobacco Use Types [...] Take 1 Tab by mouth 120 Tab 0 09/19/2019 tabletIndications: 4 times daily for Endometrial cancer 30 days. ([facility]) ([facility]) documented in this encounter Plan of Treatment Upcoming Encounters Date Type Specialty Care Team Description 03/28/2022 Office Visit Gynecologic Oncology Kush Liz PA-C [address] [facility], [facility], [address] [place], [place] [phone] (Wo rk) documented as of this encounter Visit Diagnoses Diagnosis Endometrial cancer ([facility]) ([facility]) - [facility] Malignant neoplasm of corpus uteri, exce pt isthmus documented in this encounter Discontinued Medications Medication Sig Discontinue Reason Start Date End Date megestroL (MEGACE) 40 mg Take 1 Tab by mouth Reorder 0 08/20/2019 tabletIndications: 4 times daily for Endometrial cancer 90 days. ([facility]) ([facility]) documented as of this encounter Care Teams Machinist Mechanic Relationship Specialty Start Date End Date Eve Londono MD PCP - General 04/18/17 [address] [place] [address] documented as of this encounter
--- OUTSIDE RECORDS SUMMARY | 2022-01-25 01:48 | XMS_ITS | Encounter Summary ---
:1945 Author Organization [facility] Address [address] [place] [address] Care Team Providers Name Role Phone Eve Londono MD Primary Care Provider Reason for Visit Reason Onset Date Comments Advice Only 10/19/2020 Encounter Details Date Type Department Care Team Description 10/19/2020 Telephone [facility] [place] Carmenza's Micah Liz, Advice Only Services - [facility] PA-C 111 [facility] [address] [place], [place] [phone] [place] [address] [place], [address] [place], [place] [phone] (Wo rk) Social History [...] this encounter Miscellaneous Notes Telephone Encounter - Jessica Lobato - 10/19/2020 1140 EDT Someone from the [facility] medical records department just called and reported that they have no record of Roseann being seen there documented in this encounter Plan of Treatment Upcoming Encounters Date Type Specialty Care Team Description 03/28/2022 Office Visit Gynecologic Oncology Kush Liz PA-C 111 [facility], [facility], [facility] [address] [place], [place] [phone] (Wo rk) documented as of this encounter Visit Diagnoses Not on filedocumented in this encounter Care Teams Police Service Technician Relationship Specialty Start Date End Date Eve Londono MD PCP - General 04/18/17 [address] [place] [address] documented as of this encounter
--- OUTSIDE RECORDS SUMMARY | 2022-01-25 01:48 | XMS_ITS | Encounter Summary ---
:1945 Author Organization [facility] Address [address] [place] [address] Care Team Providers Name Role Phone Eve Londono MD Primary Care Provider Reason for Visit Reason Onset Date Comments Advice Only 10/11/2020 Encounter Details Date Type Department Care Team Description 10/11/2020 Telephone [facility] Carmenza's Micah Liz, Advice Only Services - [facility] PA-C 111 [facility] [address] [place], [place] [phone] [place] [address] [place], [address] [place], [place] [phone] (Wo rk) Social History [...] Telephone Encounter - Aydin Flood RN - 10/11/2020 1623 EDT Roseann calling to report that she has just been discharged from the ED and a DVT was ruled-out via u/s. Pt states that she was told that the pain may be secondary to arthritis or strain. Given instructions to alternate heat/ice, keep LE elevated and wrapped with an JOE bandage. She will continue to take Tylenol 1000 mg PO q 6 hrs PRN and was prescribed oxycodone PRN for breakthrough pain. Will contact [facility] for visit records. AYDIN FLOOD RN 10/11/2020 16:26 elephone Encounter - Aydin Flood RN - 10/11/2020 0942 EDT Return call placed to pt to further discuss. Roseann states that she went for a [address] trip on 10/04, after which she developed pain in the left leg behind the knee. Pain has subsequently increased and is currently rated as 10/10 upon ambulation. Pt states that she is hardly able to walk secondary topain and is using a crutch. She presented to [facility] last evening 10/10 for evaluation.Pt was informed at that time that a DVT was suspected. L leg measured 1 greater than R leg both above and below knee. An u/s was recommended, however pt was informed that this would not be possible locally until 10/12. Pt is currently on Megace therapy. She is taking APAP 100 mg PO q 6 hrs which provides some relief. Denies SOB, chest pain, redness, warmth or change of color in leg. Recommended pt proceed to her local ED immediately for further work up. Pt states that she received a call from the radiologist at [facility] stating that they are unable to conduct u/s until tomorrow. Pt unable to get ride down to [facility] for u/s. Discussed with S. Shalonda, PA-C, who called [facility] ED to discuss and was informed that pt would be able to obtain u/s today via their ED. Pt informed of this and agreeable to proceeding to local ED. Records requested from [facility]. Will f/u with pt after her visit for further updates. AYDIN FLOOD RN 10/11/2020 10:04 elephone Encounter - Jessica Lobato - 10/11/2020 0853 EDT Pt calling in explaining she went to Urgent care for leg pain and they told her it was probably a blood clot, she tried to get scheduled for and US but can't get it till tomorrow. She would like to know if this is something she should be seen for today or if waiting till tomorrow is okay Pt can be reached at [phone] signed by Jessica Lobato at 10/11/2020 8:55 EDTdocumented in this encounter Plan of Treatment Upcoming Encounters Date Type Specialty Care Team Description 03/28/2022 Office Visit Gynecologic Oncology Kush Liz PA-C [address] [place] [address] [facility], [address] [place], [place] [phone] (Wo rk) documented as of this encounter Visit Diagnoses Not on filedocumented in this encounter Care Teams Boat Dock Operator Relationship Specialty Start Date End Date Eve Londono MD PCP - General 04/18/17 [address] [place] [address] documented as of this encounter
--- OUTSIDE RECORDS SUMMARY | 2022-01-25 01:48 | XMS_ITS | Encounter Summary ---
:1945 Author Organization [facility] Address [address] [place] [address] Care Team Providers Name Role Phone Eve Londono MD Primary Care Provider Reason for Visit Reason Comments Follow-up History of endometrial cance r Encounter Details Date Type Department Care Team Description 09/26/2021 Office Visit [facility] [place] Lizo ry of endometrial cancer (Primary Dx); Gynecologic Oncology HUMAIRA Zeng Dysuria; - [address] [place], [place] [phone] [place] [address] [place], [address] [place] [phone] (Wo rk) Social History Tobacco [...] Blood Pressure 164/92 09/26/2021 1506 EDT Pulse - - Temperature - - Respiratory Rate - - Oxygen Saturation - - Inhaled Oxygen Concentration - - Weight 105.7 kg (233 lb) 09/26/2021 1506 EDT Height - - Body Mass Index 45.5 03/28/2021 1427 EST documented in this encounter [...] encounter Progress Notes Vesta Liz PA-C - 09/26/2021 1500 EDT Subjective: Patient ID: Roseann Wilcox is an 76 y.o. female. Chief Complaint Patient presents with ??? Follow-up History of endometrial cancer HPI Roseann Wilcox is a 76 y.o. woman who presents today with vaginal [...] hypokalemia, now is on potassium. She is overall doing well on the Megace, and denies having any weight gain, nor any chest pain, shortness of breath. In October 2020, she presented to her local ED with left-sided pain behind her left knee as well as following her leg. A lower extremity ultrasound was performed, was negative for any evidence of DVT. Shestates that this symptom has resolved. She was recently seen in her local urgent care and diagnosed with a UTI, completed course of antibiotics and is feeling better. Was told there was blood in her urine. When asked about abdominal symptoms, she says I always feel bloated, it comes and goes, maybe a bit more frequent lately, points to her upper abdomen States that she is up to date on her colonoscopies and mammograms, those are done at her local hospital. Her last imaging was in May 2019, , there was no evidence of metastatic disease at that time. Was tx for UTI BP up a little today, follows up with pcp in January. ? Patient Active Problem List Diagnosis ??? Endometrial cancer ([facility]) (HCC) Past Medical History: Diagnosis Date ??? [...] by misc (non-drug; combo route) route. ??? atorvastatin (LIPITOR) 10 mg tablet Take 10 mg by mouth daily. ??? calcium carbonate (CALCIUM 600 ORAL) Take by mouth daily. ??? cholecalciferol, Vitamin D3, 1,000 unit tablet [...] 2 Puffs as directed every 12 hours. (Patient not taking: Reported on 09/26/2021) ??? folic acid (FOLVITE) 400 mcg tablet [...] Take 20 mg by mouth at bedtime. (Patient not taking: Reported on 09/26/2021) ??? sodium chloride (SALINE NASAL MIST NASAL) by nasal route. ??? vitamin E 400 unit capsule Take 400 Units by mouth daily. No current facility-administered medications on file prior to visit. Allergies Allergen Reactions ??? Aspirin Hives convulsions ??? Enalapril Leg cramps ??? Latex Rash redness ??? Other - See Comments Dust, Mold ??? Zyrtec [Cetirizine] Joint pain and cough with phlegm Review of Systems Constitutional: Negative. HENT: Negative. Eyes: Negative. Respiratory: Negative. Cardiovascular: Negative. Gastrointestinal: Negative. Bloating Endocrine: Negative. Genitourinary: Negative. Musculoskeletal: Negative. Skin: Negative. Allergic/Immunologic: Negative. Neurological: Negative. Hematological: Negative. Psychiatric/Behavioral: Negative. - See HPI Objective: BP (!) 164/92 Wt (!) 105.7 kg (233 lb) LMP (LMP Unknown) BMI 45.50 kg/m?? Physical Exam Constitutional: She is oriented [...] Cervix, uterus and adnexa are surgically absent. No vaginal lesions noted. After verbal constent, catheterized urine sample obtained. Musculoskeletal: General: Normal range of motion. Cervical back: Normal range of motion. Lymphadenopathy: She has no cervical adenopathy. She has no axillary adenopathy. Neurological: She is alert and oriented to person, place, and time. Skin: Skin is warm and dry. No erythema. No pallor. Psychiatric: She has a normal mood and affect. Her behavior is normal. Judgment and thought content normal. UA positive for trace RBC. Micro positive for 3-10 RBC/hpf. Assessment: History of recurrent endometrial cancer, currently maintained on Megace, and doing well. Plan: There are no diagnoses linked to this encounter. Given complaint of bloating, and that we have not done imaging in 2 years, with history of recurrentendometrial cancer on megace, will order CT chest/abdomen and pelvis. Urine micro with 3-10 rbc/hpf. Will repeat, if persists, refer to urology. Continue megace. Vesta Liz PA-C I spent a total of 30 minutes on the date of this encounter meeting with the patient and reviewing documentation/coordinating care as described in the above note. No procedures were performed at the time of the visit. Addendum: Following our visit, pt reached out via [employer], stating that she preferred to hold off onimaging, as overall she was feeling well. Reasonable, but advised to follow up if she should have any symptoms, order for CT was cancelled. Discussed trace blood in urine, suspect due to recent infection, resolving inflammation. Will recheck UA at next visit, or sooner if she should have recurrent symptoms of a UTI. documented in this encounter Plan of Treatment Upcoming Encounters Date Type Specialty Care Team Description 03/28/2022 Office Visit Gynecologic Oncology Kush Liz PA-C [address] [facility], [facility], [address] [place], [place] [phone] (Wo rk) Scheduled Orders Name Type Priority Associated Diagnoses Order S chedule CREATININE Lab Routine History of endometrial cance r Expected: 09/28/2021 (Approximate), Expires: 09/28/2022 documented as of this encounter Procedures Procedure Name Priority Date/Time Associated Diagnosis Comme nts URINE SEDIMENT Routine 09/26/2021 15:40 Dysuria Results f or this (MICRO) WITH REFLEX EDT procedur e are in TO CULTURE the results section. POCT URINE Routine 09/26/2021 15:30 Dysuria Results for this DIPSTICK, CLINITEK EDT procedure are in the results section. POCT CSN BARCODE Routine 09/26/2021 15:20 Dysuria URINE DIPSTICK EDT POCT URINE CLINITEK Routine 09/26/2021 15:20 Dysuria Resu lts for this (DIPSTICK) - DOES EDT procedure are in NOT REFLEX the results section. documented in this encounter Results (ABNORMAL) URINE SEDIMENT (MICRO) WITH REFLEX TO CULTURE (09/26/2021 15:40 EDT) Urine RBC Count, 3 - 10 (A) 0 - 2 Cells/HPF [facility] Auto LABORATORY SERVICES Urine WBC Count, 0 - 3 0 - 3 Cells/HPF [facility] Urine Squamous None Seen None Seen [facility] Count, Auto Cells/HPF LABORATORY SERVICES Urine Hyaline Cast <=10 <=10 Casts/LPF [facility] Count, Auto LABORATORY SERVICES Urine Bacteria None Seen None Seen [facility] Count, Auto Bacteria/HPF LABORATORY SERVICES Specimen Urine - Urine specimen collection, clean catch (procedure) Narrative [facility] SERVICES - 09/26/2021 16:02 EDT NOTE: Reflex to Urine Culture test is not donta cated based on Urine Sediment Analysis results. Urine Sediment Analysis results are unre liable on urines that are unrefrigerated for >2 hrs or refrigerated >8 hrs. Performing Organization Address City/[facility] Code Phon e Number [facility] [address] [place] [address] SERVICES (ABNORMAL) POCT URINE DIPSTICK, CLINITEK (09/26/2021 15:30 EDT) Color, UA Yellow Yellow [facility] SERVICES Clarity, UA Clear Clear [facility] Glucose, UA Negative Negative mg/dL [facility] SERVICES Bilirubin, UA Negative Negative [facility] SERVICES Ketones, UA Negative Negative mg/dL [facility] SERVICES Specific [place], >=1.030 1.001 - 1.035 [facility] LABORATORY SERVICES Blood, UA Trace (A) Negative [facility] SERVICES pH, UA 5.5 <=8 [facility] SERVICES Protein, UA Negative Negative mg/dL [facility] SERVICES Urobilinogen, UA 0.2 0.2 - 1.0 EU/dL [facility] SERVICES Nitrite, UA Negative Negative [facility] SERVICES Leuk Esterase Negative Negative [facility] SERVICES HN LAB COMMENT Test performed at [facility] (CLINITEK, UR) [facility] LABORATORY [place] SERVICES Specimen Urine - Urine specimen collection, clean catch (procedure) Performing Organization Address City/State/ZIP Code Phon e Number [facility] [address] [place] [address] SERVICES POCT CSN BARCODE URINE DIPSTICK (09/26/2021 15:20 EDT) Specimen Urine - Urine specimen collection, clean catch (procedure) Performing Organization Address City/State/ZIP Code Phon e Number [facility] [address] [place] [address] SERVICES documented in this encounter Visit Diagnoses Diagnosis History of endometrial cancer - Primary Personal history of malignant neoplasm o f other parts of uterus Dysuria Bloating Flatulence, eructation, and gas pain documented in this encounter Historical Medications This list may reflect changes made after this encounter. Medication Sig Dispensed Refills Start Date End Date vitamin E 400 unit capsule Take 400 Units by 0 mouth daily. calcium carbonate (CALCIUM Take by mouth daily. 0 600 ORAL) atorvastatin (LIPITOR) 10 Take 10 mg by mouth 0 mg tablet daily. added in this encounter Care Teams Septic Tank Installer Relationship Specialty Start Date End Date Eve Londono MD PCP - General 04/18/17 [address] [place], [place] [phone] documented as of this encounter
--- OUTSIDE RECORDS SUMMARY | 2022-01-25 01:48 | XMS_ITS | Encounter Summary ---
:1945 Author Organization [facility] Address [address] [place] [address] Care Team Providers Name Role Phone Eve Londono MD Primary Care Provider Reason for Visit Reason Comments Vaginal Bleeding History of recurrent endomet rial cancer Encounter Details Date Type Department Care Team Description 04/18/2020 Office Visit [facility] Vesta Lizo ry of endometrial cancer (Primary Dx); Gynecologic Oncology HUMAIRA Zeng Vaginal bleeding; - [address] Vaginal Pap smear following hysterectomy for malignancy; [address] [facility] Personal history of [place] [address] [facility] [phone] [facility] [address] [place] [address] (Wo rk) Social History Tobacco [...] Sign Reading Time Taken Comments Blood Pressure 150/82 04/18/2020 1221 EST Pulse - - Temperature - - Respiratory Rate - - Oxygen Saturation - - Inhaled Oxygen Concentration - - Weight 96.2 kg (212 lb) 04/18/2020 1221 EST Height - - Body Mass Index 41.62 02/14/2020 1435 EDT documented in this encounter [...] encounter Progress Notes Vesta Liz PA-C - 04/18/2020 1230 EST Subjective: Patient ID: Roseann Wilcox is an 74 y.o. female. Chief Complaint Patient presents with ??? Vaginal Bleeding History of recurrent endometrial cancer HPI Roseann Wilcox is a 73 y.o. woman who presents today with vaginal [...] cancer. Initiated on Megace, 40 mg 4x daily She was last seen by Dr. Banegas on 02/14/20, at that time with no lesions on vaginal exam, and she hada pap smear which was NIL, with follow up plan made to return in 4-6 months for ongoing surveillance. She returns today, because she reports that she had one episode of vaginal bleeding approximately 6 days ago. She states that on April 12, she noted an episode of vaginal bleeding. In hindsight, earleorts this may have been preceded by lifting a heavy couch out of the way, but this was perhaps a day prior. She noticed some blood on her underwear, and then again after she wiped, and has had no further bleeding since that time. She also denies any new or different abdominal pain, pressure, bloating, or any other symptoms. Of note, when she last saw Dr. Banegas, she discontinued her Megace as she had run out of her medication at that time. ? Patient Active Problem List Diagnosis ??? Endometrial cancer (HCC-CMS) Past Medical History: Diagnosis Date ??? Cancer (HCC-CMS) ??? High cholesterol ??? HTN (hypertension) ??? Obesity ??? Sleep apnea No past surgical history on file. Family History Problem Relation Age of Onset [...] 1 Tab by mouth 4 times daily. (Patient not taking: Reportedon 04/18/2020) 120 Tab 3 ??? Methylcellulose, Laxative, 500 [...] Negative. Cardiovascular: Negative. Gastrointestinal: Negative. Endocrine: Negative. Genitourinary: Positive for vaginal bleeding. Musculoskeletal: Negative. Skin: Negative. Allergic/Immunologic: Negative. Neurological: Negative. Hematological: Negative. Psychiatric/Behavioral: Negative. - See HPI Objective: BP (!) 150/82 Wt 96.2 kg (212 lb) LMP (LMP Unknown) BMI 41.62 kg/m?? Physical Exam Constitutional: She appears well-developed and well-nourished. Abdominal: Soft. She exhibits no distension and no mass. There is no abdominal tenderness. There is no rebound and no guarding. Genitourinary: There is no rash, tenderness, lesion or injury on the right labia. There is no rash, tenderness, lesion or injury on the left labia. No vaginal discharge, erythema, tenderness or bleeding. No vaginal erythema, tenderness or bleeding. No signs of injury in the vagina. On speculum exam, there are no vaginal lesions seen whatsoever. Her vaginal mucosa is atrophic, witha few prominent blood vessels. After placing the speculum, there was no bleeding noted, and on careful digital exam, there were no nodules palpated, and no bleeding that was elicited by this exam. Assessment: History of recurrent endometrial cancer, recent vaginal bleeding, with no lesions on exam today. Plan: There are no diagnoses linked to this encounter. As above, I was reassured by Roseann's exam today. I am also reassured given that she had one episodeof bleeding, but has had none since that time. Suspect this may be due to either scar tissue, perhaps atrophy and perhaps in a prominent blood vessel. I did perform a Pap smear, and I will follow and notify her of this result. She also knows that she should return to see us should she have any furthervaginal bleeding. Will consult with Dr. Banegas, as to whether the plan at this time is to continue her Megace, or to discontinue and monitor her off medication at this time. Vesta Liz PA-C documented in this encounter Plan of Treatment Upcoming Encounters Date Type Specialty Care Team Description 03/28/2022 Office Visit Gynecologic Oncology Kush Liz PA-C [address] [facility], [facility], Level [address] [place] [address] (Wo rk) documented as of this encounter Procedures Procedure Name Priority Date/Time Associated Diagnosis Comme nts PAP TEST Routine 04/18/2020 13:05 EST Personal history of Results for this other medical procedure are in treatment the results History of endometrial secti on. cancer Vaginal bleeding Vaginal Pap smear following hysterectomy for malignancy documented in this encounter Results PAP TEST (04/18/2020 13:05 EST) Specimens A. Vagina , ThinPrep [facility] Imaging System with CENTER Manual Evaluation LABORATORY SERVICES Specimen Adequacy Satisfactory for [facility] Evaluation - CENTER assessment of LABORATORY transformation zone SERVICES component not applicable ( e.g. atrophy, vaginal sample, hysterectomy) General Negative for [facility] Categorization intraepithelial CENTER lesion or malignancy LABORATORY SERVICES Descriptive Reactive cellular [facility] Diagnosis changes associated CENTER with inflammation LABORATORY present (includes SERVICES repair). Attestation By the signature below, the attending physician certifies that they have personally conducted a gross and/or microscopic [facility] Electronically examination of the described specimens and rendered or confirmed the above diagnosis. CENTER signed by NEEL Burnett MD on SERVICES 04/27/2020 at 105 0 Clinical History History of [facility] endometrial cancer, CENTER with subsquent LABORATORY vaginal recurrence. SERVICES Recent episode of vaginal bleeding. Performing Lab [facility] LABORATORY SERVICES Scanned Images [facility] LABORATORY SERVICES Specimen Pap Test - Entire vagina (body structure ) Performing Organization Address City/State/ZIP Code Phon e Number [facility] [address] [place] [address] SERVICES documented in this encounter Visit Diagnoses Diagnosis History of endometrial cancer - Primary Personal history of malignant neoplasm o f other parts of uterus Vaginal bleeding Other specified noninflammatory disorder of vagina Vaginal Pap smear following hysterectomy for malignancy Follow-up vaginal pap smear following alvarenga rgery Personal history of other medical treatm ent documented in this encounter Discontinued Medications Medication Sig Discontinue Reason Start Date End Date PSYLLIUM HUSK, ASPARTAME, Take by mouth Patient Stopped Taking 04/18/2020 ORALIndications: patient daily. not taking Methylcellulose, Take 500 mg by Patient Stopped Taking 04/18/2020 Laxative, 500 mg mouth daily. tabletIndications: patient not taking oxymetazoline HCl (NASAL by nasal route. Therapy completed 04/18/2020 SPRAY 12 HOUR NASAL) documented as of this encounter Historical Medications This list may reflect changes made after this encounter. Medication Sig Dispensed Refills Start Date End Date DULCOLAX, BISACODYL, ORAL Take by mouth once a 0 week. AMLODIPINE BESYLATE, BULK, 5 mg by misc 0 MISC (non-drug; combo route) route. added in this encounter Care Teams Lead Generation Specialist Relationship Specialty Start Date End Date Eve Londono MD PCP - General 04/18/17 [address] [place] [address] documented as of this encounter
--- OUTSIDE RECORDS SUMMARY | 2022-01-25 01:49 | XMS_ITS | Encounter Summary ---
:1945 Author Organization [facility] Address [address] [place] [address] Care Team Providers Name Role Phone Eve Londono MD Primary Care Provider Reason for Visit Reason Comments Cancer Encounter Details Date Type Department Care Team Description 08/11/2018 Radiation Therapy [facility] Ling Blancas RN Endometrial cancer Visit Radiation Oncology [address] [place] [address] ([facility]) ([facility] [address] Dx) [address] [place] [id number] Social History Tobacco Use Types Packs/Day Years Used Date Former Smoker Smokeless Tobacco: Never Used Alcohol Use Standard Drinks/Week Comments No 0 (1 standard drink = 0.6 oz pure alcoho l) Sex Assigned at Date Recorded Female 09/25/2021 8:41 EDT documented as of this encounter Last Filed Vital Signs Vital Sign Reading Time Taken Comments Blood Pressure - - Pulse - - Temperature 37 ??C (98.6 ??F) 08/11/2018 0911 EDT Respiratory Rate - - Oxygen Saturation 98% 08/11/2018 0911 EDT Inhaled Oxygen - - Concentration Weight 99.6 kg (219 lb 9.6 08/11/2018 0911 w/ clothes n o shoes oz) EDT Height - - Body Mass Index 43.11 07/06/2018 1503 EDT documented in this encounter Functional Status [...] documented as of this encounter Progress Notes Kimberly Blancas RN - 08/11/2018 0911 EDT On Treatment Visit Assessment: Roseann Wilcox is currently receiving radiation therapy treatment and is being seen today for her weekly on treatment visit. The encounter diagnosis was Endometrial cancer ([facility] Assessment: Assessment Completed By: Kimberly Blancas RN (08/11/18 0911) Radiation Therapy: Cumulative RT Dose 1620 cGy Daily RT Dose 180 cGy Total RT Planned Dose 4500 cGy Chemotherapy Agent none Subjective Note: General: mild fatigue, bowels at baseline, bladder at baseline, denies pelvic pain, Nutrition: reg Pain: pelvis Numeric Pain Level (Scale 1-10): 0 Pain Treatment: none Narcotic: No Psychosocial: coping well Review of Systems: as above Physical Exam: Temp: 37 ??C (98.6 ??F) Temp src: Tympanic SpO2: 98 % O2 Device: None (Room air) Weight : 99.6 kg (219 lb 9.6 oz)(w/ clothes no shoes) Weight Method: Actual Sitting BP: 159/74 Sitting Pulse: 78 Standing BP: 147/88 Standing Pulse: 79 General: well groomed woman who is independnent w/ adl's and mobility General Appearance: Appears comfortable, no acute distress Here With: self Skin Exam: fungal infection beneath peniculus & groins some redness using nystatin cream Skin Reaction: none Neurologic: a/o x 3 Treatment Related Toxicity: Fatigue: 1-Fatigue relieved by rest Pain: 0-None Alopecia: 0-None Dermatitis: 0-None Anorexia: 0-None Weight Loss: 0-<5% from baseline Nausea: 0-None Vomitin-None Diarrhea: 0-None Constipation: 0-None Dyspepsia: 0-None Proctitis: 0-None Bladder Spasm: 0-None Cystitis: 0-None Incontinence: 0-None Urinary Frequency: 0-None Urinary Retention: 0-None Vaginal Inflammation: 0-None Vaginal Bleedin-None Headache: 0-None Weekly Review: Impression: Performance Status: 0-Fully active, able to carry on all pre-disease performance without restriction Plan: Plan: Continue per plan Plan Comment: monitor and support through therapy Medication Changes: none documented in this encounter Plan of Treatment Upcoming Encounters Date Type Specialty Care Team Description 03/28/2022 Office Visit Gynecologic Oncology Kush Liz PA-C [address] [place] [address], [facility], [facility] [address] [place], [place] [address] (Wo rk) documented as of this encounter Visit Diagnoses Diagnosis Endometrial cancer ([facility]) ([facility]) - [facility] Malignant neoplasm of corpus uteri, exce pt isthmus documented in this encounter Discontinued Medications Medication Sig Discontinue Reason Start Date End Date selenium 100 mcg tablet Take 200 mcg by Duplicate Therapy 08/11/2018 mouth daily. Reported on 08/12/2016 acetaminophen (TYLENOL) Take 500 mg by Duplicate Therapy 08/11/2018 500 mg tablet mouth every 6 hours as needed for Pain. documented as of this encounter Historical Medications This list may reflect changes made after this encounter. Medication Sig Dispensed Refills Start Date End Date acetaminophen (TYLENOL) 500 Take 500 mg by mouth 0 mg tablet every 6 hours as needed for Pain. added in this encounter Care Teams Salesperson Furs Relationship Specialty Start Date End Date Eve Londono MD PCP - General 04/18/17 [address] [place] [address] documented as of this encounter
--- OUTSIDE RECORDS SUMMARY | 2022-01-25 01:49 | XMS_ITS | Encounter Summary ---
:1945 Author Organization [facility] Address [address] [place] [address] Care Team Providers Name Role Phone Eve Londono MD Primary Care Provider Reason for Visit Reason Comments Cancer Endometrial Encounter Details Date Type Department Care Team Description 07/15/2018 Office Visit [facility] Lillian Rivas MD Endometrial cancer Radiation Oncology - [address] [place] [address] ([facility]) ([facility] [address] Dx) [address] [place] [address] Pavilion, [place] [address] (Wo rk) Social History Tobacco [...] or older) documented as of this encounter Discharge Diagnoses Diagnosis C54.1 Malignant neoplasm of endometrium- C54.1[ICD-10-CM] documented in this encounter Discharge Disposition Disposition Code Departure Means Destination Auto Discharge documented in this encounter Progress Notes Lillian Rivas MD, MD - 07/15/2018 1330 EDT DIVISION OF RADIATION ONCOLOGY Follow up- 07/15/18 Diagnosis: Recurrent endometrial cancer to the vaginal cuff. HPI: no changes. Pt has question about XRT dose with CT's used for positioning. Exam: Gen: Pt appears well. Creative Lead: Vaginal cuff has palpable mass at top, approx 2 cm in diameter. Easily visible with speculum. Does fill the apex, extends proximally approximately 1-2 CM. C/w MRI imaging. 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 Plan: Plan EBRT with IMRT technique to vag cuff and low pelvic nodes. Consent was signed today and pt had CT simulation, plan to start tx in 2 weeks. I spent a total of 25 minutes in face to face time with this patient today and 15 minutes of that time was spent in counseling and coordination of care as described in the progress note. Lillian Rivas MD Radiation Oncology Pager [phone] Office [phone] documented in this encounter Plan of Treatment Upcoming Encounters Date Type Specialty Care Team Description 03/28/2022 Office Visit Gynecologic Oncology Kush Liz PA-C [address] [place] [facility], [facility], Level [address] [place], [place] [address] (Wo rk) documented as of this encounter Visit Diagnoses Diagnosis Endometrial cancer (HCC-CMS) (HCC) - [facility] Malignant neoplasm of corpus uteri, exce pt isthmus documented in this encounter Historical Medications This list may reflect changes made after this encounter. Medication Sig Dispensed Refills Start Date End Date PSYLLIUM HUSK, ASPARTAME, Take by mouth daily. 0 04/18/2020 ORALIndications: patient not taking added in this encounter Care Teams Catering And Events Manager Relationship Specialty Start Date End Date Eve Londono MD PCP - General 04/18/17 [address] [place] [address] documented as of this encounter
--- OUTSIDE RECORDS SUMMARY | 2022-01-25 01:49 | XMS_ITS | Encounter Summary ---
:1945 Author Organization [facility] Address [address] [place] [address] Care Team Providers Name Role Phone Eve Londono MD Primary Care Provider Reason for Visit Reason Onset Date Comments Follow-up 07/16/2018 Encounter Details Date Type Department Care Team Description 07/16/2018 Telephone [facility] Meaghan Schuler RN Follow-up Gynecologic Oncology - Main [address] [place] [address] [address] [place] [address] Social History Tobacco Use Types Packs/Day Years [...] this encounter Miscellaneous Notes Telephone Encounter - Meaghan Schuler RN - 07/16/2018 1025 EDT Roseann calls today having been seen in Rad/Onc yesterday. She is noticing some reddish discharge, and unsure if it is vaginal or urinary. She is c/o some lower back pain occasionally. She did have an internal exam yesterday. I advised Roseann that if it is vaginal, it is probably due to her cancer and recent exam. Not to worrisome at this time if not bleeding more than a pad an hour. There is the possibility she could have a UTI. She will call her local primary care office for an eval/UA. She is in agreement with this, and will keep us posted. documented in this encounter Plan of Treatment Upcoming Encounters Date Type Specialty Care Team Description 03/28/2022 Office Visit Gynecologic Oncology Kush Liz PA-C [address] [facility], [facility], Level [address] [place], [place] [address] (Wo rk) documented as of this encounter Visit Diagnoses Not on filedocumented in this encounter Care Teams Junior Network Administrator Relationship Specialty Start Date End Date Eve Londono MD PCP - General 04/18/17 [address] [place] [address] documented as of this encounter
--- OUTSIDE RECORDS SUMMARY | 2022-01-25 01:49 | XMS_ITS | Encounter Summary ---
:1945 Author Organization [facility] Address [address] [place] [address] Care Team Providers Name Role Phone Eve Londono MD Primary Care Provider Encounter Details Date Type Department Care Team Description 06/24/2018 Phlebotomy Only [facility] Residential Property Consultant, Neopl asm ; - [facility] Outpatient Endometrial cancer ([facility]) [address] [place] [address] Social History Tobacco Use Types Packs/Day Years [...] Gynecologic Oncology Kush Liz PA-C [address] [facility], [facility], Level [address] [place], [place] [address] (Wo rk) documented as of this encounter Procedures Procedure Name Priority Date/Time Associated Diagnosis Comme nts PTT Routine 06/24/2018 11:09 Neoplasm Results for this EST Endometrial cancer procedure are in ([facility]) the results section. PROTIME Routine 06/24/2018 11:09 Neoplasm Results for this EST Endometrial cancer procedure are in ([facility]) the results section. COMPLETE BLOOD Routine 06/24/2018 11:09 Endometrial cancer Res ults for this COUNT EST ([facility]) procedure are in Neoplasm the results section. BASIC METABOLIC Routine 06/24/2018 11:09 Endometrial cancer Re sults for this PANEL (BMP) EST ([facility]) procedure are in Neoplasm the results section. documented in this encounter Results (ABNORMAL) COMPLETE BLOOD COUNT (06/24/2018 11:09 EST) Pathologist Sig nature WBC 8.28 4.0 - 12.4 K/cmm [facility] RBC 4.11 3.86 - 5.04 M/cmm [facility] Hemoglobin 12.7 11.6 - 15.2 gm/dl [facility] HCT 38.4 34.9 - 44.4 % [facility] MCV 93 81 - [address] [facility] MCH 30.9 26.7 - 33.[address] [facility] MCHC 33.1 32.1 - 35.9 gm/dl [facility] RDW-CV 14.7 (H) <14.7 % [facility] RDW-SD 50.6 (H) <50.[address] [facility] PLT 281 141 - 377 K/cmm [facility] MPV 9.9 9.5 - 12.[address] [facility] Specimen Blood specimen (specimen) - Blood Performing Organization Address City/State/ZIP Code Phon e Number [facility] [address] [place] [address] SERVICES (ABNORMAL) BASIC METABOLIC PANEL (BMP) (06/24/2018 11:09 EST) Sodium 141 136 - 145 [facility] mEq/L LABORATORY SERVICES Potassium 4.4 3.5 - 5.0 [facility] mEq/L [facility] SERVICES Chloride 99 96 - 110 [facility] mEq/L LAB[facility] SERVICES CO2 29 22 - 32 mEq/L [facility] BUN 15 10 - 26 mg/dl [facility] Creatinine 0.67 0.52 - 1.04 [facility] mg/dl LABORATORY SERVICES GFR, Calculated 88 >60 [facility] Comment: ml/min/1.73m2 LABORATORY eGFR calculated using CKD-EPI equation for SERVICES non Americans. Multiply eGFR by 1.16 for Americans. Calcium 10.6 (H) 8.5 - 10.5 [facility] mg/dl LABORATORY SERVICES Calculated Calcium 9.8 8.5 - 10.5 [facility] mg/dl LABORATORY SERVICES Glucose, Serum 93 70 - 100 [facility] mg/dl LABORATORY SERVICES Fasting? No [facility] Specimen Blood specimen (specimen) - Blood Performing Organization Address City/[facility]/ZIP Code Phon e Number [facility] [address] [place] [address] SERVICES PROTIME (06/24/2018 11:09 EST) Pro Time 13.0 10.3 - 13.4 [facility] secs LABORATORY SERVICES I.N.R. 1.1 0.9 - 1.1 [facility] Comment: Ratio LABORATORY SERVICES Moderate Intensity Coumadin INR = 2.0-3.0 Adjustments in anticoagulant therapy dose should be based upon the INR and NOT the Pro Time. Specimen Blood specimen (specimen) - Blood Performing Organization Address City/State/ZIP Code Phon e Number [facility] [address] [place] [address] SERVICES PTT (06/24/2018 11:09 EST) Pathologist Sig nature PTT 31 26 - [address] [facility] Y SERVICES Specimen Blood specimen (specimen) - Blood Performing Organization Address City/[facility]/ZIP [facility] Phon e Number [facility] [address] [place] [address] SERVICES documented in this encounter Visit Diagnoses Diagnosis Neoplasm Neoplasm of unspecified nature, site uns pecified Endometrial cancer (HCC-CMS) (HCC) Malignant neoplasm of corpus uteri, exce pt isthmus documented in this encounter Care Teams Winch Operator Relationship Specialty Start Date End Date Eve Londono MD PCP - General 04/18/17 [address] [place] [address] documented as of this encounter
--- OUTSIDE RECORDS SUMMARY | 2022-01-25 01:49 | XMS_ITS | Encounter Summary ---
:1945 Author Organization [facility] Address [address] [place] [address] Care Team Providers Name Role Phone Eve Londono MD Primary Care Provider Reason for Visit (Routine) - Receiving Office to Obtain Authorization Specialty Diagnoses / Procedures Referred By Contact Refer red To Contact Procedures Unknown, Provider, CT OUTSIDE IMAGES NEURO Phone: Referral ID Status Reason Start Expiration Visits Visits Date Date Requested Authorized [id number] Receiving Office 12/06/2019 1 1 to Obtain Authorization Encounter Details Date Type Department Care Team Description 05/06/2019 Hospital Encounter [facility] Radiology - Main [place] [address] [place] [address] Social History Tobacco Use Types [...] or older) documented as of this encounter Medications at Time of Discharge Medication Sig Dispensed Refills Start Date End Date acetaminophen (TYLENOL) 500 Take 500 mg by 0 mg tablet mouth every 6 hours as needed for Pain. cholecalciferol, Vitamin D3, Take 400 Units by 0 1,000 unit tablet mouth daily. cyanocobalamin (VITAMIN Take 1,000 mcg by 0 B-12) 500 mcg tablet mouth daily. docusate sodium (COLACE) 100 Take 1 Cap by 60 Cap 2 06/20 mg capsule mouth 2 times daily. fexofenadine (RADHA) 60 mg Take 180 mg by 0 tablet mouth at bedtime. fluocinonide (LIDEX) 0.05 % Apply topically 2 0 cream times daily. fluticasone (FLONASE) 50 Instill 100 mcg 0 mcg/actuation nasal spray into both nostrils as needed. Reported on 07/15/2016 folic acid (FOLVITE) 400 mcg Take 800 mcg by 0 tablet mouth daily. hydroCHLOROthiazide Take 25 mg by 0 (HYDRODIURIL) 25 mg tablet mouth daily. hydrocortisone 0.5 % cream Apply topically 0 once a week. levothyroxine (SYNTHROID) 25 Take 25 mcg by 0 mcg tablet mouth daily. losartan (COZAAR) 100 mg Take 100 mg by 0 tablet mouth daily. Magnesium 250 mg tablet Take 1 Tab by 0 mouth daily. mupirocin (BACTROBAN) 2 % Apply topically 0 ointment as needed. nystatin-triamcinolone Apply topically 4 0 (MYCOLOG II) cream times daily as needed. Reported on 07/15/2016 polyethylene glycol 3350 Take by mouth. 0 (MIRALAX ORAL) Potassium Gluconate 595 mg Take 1 Tab by 0 (99 mg) tablet mouth daily. Selenium 200 mcg tablet Take 200 mg by 0 mouth daily. simvastatin (ZOCOR) 20 mg Take 20 mg by 0 tabletIndications: hold mouth at bedtime. until 2 weeks post radiation therapy Methylcellulose, Laxative, Take 500 mg by 0 04/18/2020 500 mg tabletIndications: mouth daily. patient not taking oxymetazoline HCl (NASAL by nasal route. 0 04/18/2020 SPRAY 12 HOUR NASAL) PSYLLIUM HUSK, ASPARTAME, Take by mouth 0 04/18/2020 ORALIndications: patient not daily. taking documented as of this encounter Discharge Disposition Disposition Code Departure Means Destination Home or Self Care documented in this encounter Plan of Treatment Upcoming Encounters Date Type Specialty Care Team Description 03/28/2022 Office Visit Gynecologic Oncology Kush Liz PA-C [address] [facility], [address] [place], [place] [address] (Wo rk) documented as of this encounter Procedures Procedure Name Priority Date/Time Associated Diagnosis Comme nts CT OUTSIDE IMAGES Routine 12/06/2019 12:00 Result s for this NEURO EDT procedure are i n the results section. documented in this encounter Results CT OUTSIDE IMAGES NEURO (12/06/2019 12:00 EDT) Specimen Narrative [facility] - 12/06/2019 12:00 EDT This is a non-reportable exam. Performing Organization Address City/State/ZIP Code Phon e Number [place] documented in this encounter Visit Diagnoses Not on filedocumented in this encounter Care Teams Knit Goods Cutter Hand Relationship Specialty Start Date End Date Eve Londono MD PCP - General 04/18/17 [address] [place] [address] documented as of this encounter
--- OUTSIDE RECORDS SUMMARY | 2022-01-25 01:49 | XMS_ITS | Encounter Summary ---
:[address] [facility] Address [address] [place] [address] Care Team Providers Name Role Phone Eve Londono MD Primary Care Provider Reason for Referral Radiology Services (Routine) - Closed Specialty Diagnoses / Procedures Referred By Contact Refer red To Contact Radiology Diagnoses Endometrial cancer ([facility]-CMS) ([facility]) Vesta Liz [facility] Saji [address] ABDOMEN PELVIS W CONTRAST PA-C [address], Main Phone: [facility], [address] [place] [phone] Referral ID Status Reason Start Date Expiration Date Visits Requ ested Visits Authorized [id number] Closed 06/01/2019 07/30/2019 1 1 Radiology Services (Routine) - Closed Specialty Diagnoses / Procedures Referred By Contact Refer red To Contact Radiology Diagnoses Endometrial cancer (HCC-CMS) ([facility]) Vesta Liz [facility] S[facility] [address] CHEST W CONTRAST PA-C [address] [place], [place] [id number] [place] [address], Main Phone: [facility], [address] [place] [phone] Referral ID Status Reason Start Date Expiration Date Visits Requ ested Visits Authorized [id number] Closed 06/01/2019 07/30/2019 1 1 Encounter Details Date Type Department Care Team Description 05/19/2019 Orders Only [facility] Vesta Liz etrial cancer Women's Services - HUMAIRA Zeng ([facility]) (Primary [facility] [address]) [address] [place] [address] [facility] [phone] [facility], [address] [place] [phone] (Wo rk) Social History Tobacco Use Types [...] of this encounter Progress Notes Vesta Liz PA - 05/19/2019 1132 EST Spoke with Roseann, reviewed that her vaginal biopsy is highly suspicious for recurrent endometrioid adenocarcinoma. Have placed an order for a CT of the chest, abdomen and pelvis to rule out metastatic disease, and once this has been scheduled, will schedule a follow up with Dr. Banegas to review the results and plan. documented in this encounter Plan of Treatment Upcoming Encounters Date Type Specialty Care Team Description 03/28/2022 Office Visit Gynecologic Oncology Kush Liz PA-[place] [address] [facility], [facility], [address] [place], [place] [address] (Wo rk) documented as of this encounter Results CT ABDOMEN PELVIS W CONTRAST (06/04/2019 9:07 EST) Anatomical Region Laterality Modality Computed Tomography Specimen Narrative [facility] - 06/04/2019 12:[address] ABDOMEN PELVIS W CONTRAST ??06/04/2019 8:25 AM Signs and Symptoms/Comments: ?? Complex Patient Condition - See Comments ; History of recurrent endometrial cancer, new vaginal lesion highly suspicious for recurrent endometrial cancer CT of the abdomen and pelvis was perform ed following the administration intravenous contrast; coronal and sagittal multiplanar reconstructions generated Comparison: ?? February 04, 2019 Findings: Hepatobiliary and gallbladder : ??Unrema rkable Spleen and pancreas: ??Unremarkable Adrenals and kidneys: ??Mild nodularity of both adrenal glands is stable. Bilateral renal cysts. No hydronephrosis. Bowel: ??No bowel wall thickening. No magdalene wel obstruction. Lymphovascular: ??Moderate atheroscleros is. No pathologically enlarged lymph nodes. Uterus, ovaries, vagina, and urinary alethea dder: The uterus is absent. The appearance of the vagina is similar to that of the previous exam, with the right side slightly more prominent than the left. Tethe ring of the urinary bladder to the vagin a is again seen, likely postradiation related. There is mild circumferential thickening of the urinary bladder which is not well distended, also likely postradiation related. The uterus is absent. There are no adnex al masses. Peritoneal cavity: ??No free fluid Musculoskeletal: ??Degenerative changes are noted in the spine. No suspicious bone lesions. Lung bases: ??Please refer to the separa chest CT report performed on the same day as this abdominal CT for the evaluation of the lung bases and the lower chest. Impressions: 1. Stable examination of the abdomen and pelvis 2. Status post hysterectomy and bilatera l salpingooophorectomy. Stable appearance of the vagina. Procedure Note Umm Boyer MD - 06/04/2019 CT ABDOMEN PELVIS W CONTRAST 06/04/2019 8 :25 AM Signs and Symptoms/Comments: Complex Patient Condition - See Comments ; History of recurrent endometrial cancer, new vaginal lesion highly suspicious for recurrent endometrial cancer CT of the abdomen and pelvis was perform ed following the administration intravenous contrast; coronal and sagittal multiplanar reconstructions generated Comparison: February 04, 2019 Findings: Hepatobiliary and gallbladder : Unremark able Spleen and pancreas: Unremarkable Adrenals and kidneys: Mild nodularity of both adrenal glands is stable. Bilateral renal cysts. No hydronephrosis. Bowel: No bowel wall thickening. No joanie l obstruction. Lymphovascular: Moderate atherosclerosis . No pathologically enlarged lymph nodes. Uterus, ovaries, vagina, and urinary alethea dder: The uterus is absent. The appearance of the vagina is similar to that of the previous exam, with the right side slightly more prominent than the left. Tethering of the urinary bladder to the vagina is again seen, lik jame postradiation related. There is mild circumferential thickening of the urinary bladder which is not well distended, also likely postradiation related. The uterus is absent. There are no adnex al masses. Peritoneal cavity: No free fluid Musculoskeletal: Degenerative changes ar e noted in the spine. No suspicious bone lesions. Lung bases: Please refer to the separate chest CT report performed on the same day as this abdominal CT for the evaluation of the lung bases and the lower chest. Impressions: 1. Stable examination of the abdomen and pelvis 2. Status post hysterectomy and bilatera l salpingooophorectomy. Stable appearance of the vagina. Performing Organization Address City/State/ZIP Code Phon e Number [facility] CT CHEST W CONTRAST (06/04/2019 9:07 EST) Anatomical Region Laterality Modality Chest Computed Tomography Specimen Impressions [facility] - 06/04/2019 10:05 EST 1. ??No metastatic lesions in the chest. 2. ??Stable subpleural interstitial lung disease. 3. ??Stable region of likely cicatricial atelectasis in the left lower lobe abutting the descending thoracic aorta. 4. ??Calcified plaques of the coronary a rteries and aorta. Narrative [facility] - 06/04/2019 10:[address] CHEST W CONTRAST ??06/04/2019 8:25 AM Clinical History/Comments: Complex Patient Condition - See Comments ; History of recurrent endometrial cancer, with new vaginal lesion highly suspicious for recurrent disease. Technique: A single breath-hold helical CT acquisit ion was performed through the chest on a multidetector-row scanner with a reconstructed slice thickness of 3 mm and retrospectively reconstructed 0.9 mm thick sec tions with 0.45 mm overlapping intervals . ??The scans were obtained from the lung apices through the bases during the intravenous administration of 70-100 cc of 350-370 mg% nonionic contrast injected at a rate of 2 cc/second. Scans were revie wed on a dedicated PACS workstation for analysis. Exam description: CT of the chest with c ontrast Comparison: 06/24/2018 Findings: Lower neck: No abnormalities. Chest wall soft tissues: No abnormalitie s. Mediastinum and marcie: No enlarged medias tinal or hilar lymph nodes. Heart and mediastinal vasculature: ??Jacek cified plaques of the coronary arteries and aorta. Cardiac chambers are normal in size. Mild mitral annular calcification. Large airways: ??Secretions, occluding t he superior segment bronchus and left lower lobe. Lungs: ??Stable, mild subpleural interst itial lung disease, consisting mostly of reticulations, subpleural lines, and mild groundglass opacity. Small focal scar in the lingula. No nodules or masses. Sta ble cicatricial atelectasis involving th e superior segment of the left lower lobe abutting the descending aorta. Pleura: No abnormalities. Upper abdomen (limited to upper abdomen, not optimized for abdominal imaging): A separate CT of the abdomen or abdomen and pelvis was performed on the same date. ??Please see that report. Bones: ??No significant abnormalities. Procedure Note Mamadou Doll MD - 06/04/2019 CT CHEST W CONTRAST 06/04/2019 8:25 AM Clinical History/Comments: Complex Patient Condition - See Comments ; History of recurrent endometrial cancer, with new vaginal lesion highly suspicious for recurrent disease. Technique: A single breath-hold helical CT acquisit ion was performed through the chest on a multidetector-row scanner with a reconstructed slice thickness of 3 mm and retrospectively reconstructed 0.9 mm thick sections with 0.45 mm overlapping intervals. The scans were obtained from the lung apices through the bases during the intravenous administration of 70-100 cc of 350-370 mg% nonionic contrast injected at a rate of 2 cc/second. Scans were [facility]. Exam description: CT of the chest with c ontrast Comparison: 06/24/2018 Findings: Lower neck: No abnormalities. Chest wall soft tissues: No abnormalitie s. Mediastinum and marcie: No enlarged medias tinal or hilar lymph nodes. Heart and mediastinal vasculature: Calci fied plaques of the coronary arteries and aorta. Cardiac chambers are normal in size. Mild mitral annular calcification. Large airways: Secretions, occluding the superior segment bronchus and left lower lobe. Lungs: Stable, mild subpleural interstit ial lung disease, consisting mostly of reticulations, subpleural lines, and mild groundglass opacity. Small focal scar in the lingula. No nodules or masses. Stable cicatricial atelectasis involving the superior segme nt of the left lower lobe abutting the descending aorta. Pleura: No abnormalities. Upper abdomen (limited to upper abdomen, not optimized for abdominal imaging): A separate CT of the abdomen or abdomen and pelvis was performed on the same date. Please see that report. Bones: No significant abnormalities. IMPRESSION 1. No metastatic lesions in the chest. 2. Stable subpleural interstitial lung d isease. 3. Stable region of likely cicatricial a telectasis in the left lower lobe abutting the descending thoracic aorta. 4. Calcified plaques of the coronary art eries and aorta. Performing Organization Address City/State/ZIP Code Phon e Number [facility] documented in this encounter Visit Diagnoses Diagnosis Endometrial cancer (HCC-CMS) (HCC) - [facility] Malignant neoplasm of corpus uteri, exce pt isthmus Endometrial cancer (HCC-CMS) (HCC) Malignant neoplasm of corpus uteri, exce pt isthmus documented in this encounter Care Teams Extruder Operator Vertical Relationship Specialty Start Date End Date Eve Londono MD PCP - General 04/18/17 [address] [place] [address] documented as of this encounter
--- OUTSIDE RECORDS SUMMARY | 2022-01-25 01:49 | XMS_ITS | Encounter Summary ---
:1945 Author Organization [facility] Address [address] [place] [address] Care Team Providers Name Role Phone Eve Londono MD Primary Care Provider Encounter Details Date Type Department Care Team Description 01/28/2019 Phlebotomy Only [facility], [facility] Outpatient ([facility]) (Primary [address]) [place] [address] Social History Tobacco Use Types Packs/Day Years [...] Visit Gynecologic Oncology Kush Liz PA-C [address] [facility], [facility], [address] [place], [place] [address] (Wo rk) documented as of this encounter Procedures Procedure Name Priority Date/Time Associated Diagnosis Comme nts CREATININE Routine 01/28/2019 12:20 EDT Endometrial cancer R esults for this ([facility]) procedure are i n the results section. documented in this encounter Results CREATININE (01/28/2019 12:20 EDT) Creatinine 0.67 0.52 - 1.04 [facility] mg/dl LABORATORY SERVICES GFR, Calculated 88 >60 [facility] Comment: ml/min/1.73m2 LABORATORY eGFR calculated using CKD-EPI equation for SERVICES non Americans. Multiply eGFR by 1.16 for Americans. Specimen Blood specimen (specimen) - Blood Performing Organization Address City/State/ZIP Code Phon e Number [facility] LABORATORY [address] [place] [address] SERVICES documented in this encounter Visit Diagnoses Diagnosis Endometrial cancer ([facility]) ([facility]) - [facility]onia reggie Malignant neoplasm of corpus uteri, exce pt isthmus documented in this encounter Care Teams Head Turning Machine Operator Relationship Specialty Start Date End Date Eve Londono MD PCP - General 04/18/17 [address] [place], [place] [id number] documented as of this encounter
--- OUTSIDE RECORDS SUMMARY | 2022-01-25 01:49 | XMS_ITS | Encounter Summary ---
:1945 Author Organization [facility] Address [address] [place] [address] Care Team Providers Name Role Phone Eve Londono MD Primary Care Provider Reason for Visit Reason Comments Cancer Encounter Details Date Type Department Care Team Description 08/18/2018 Radiation Therapy [facility] Lida Thomas metrial cancer Visit Radiation Oncology - [place] ([facility]) (Primary [address] [place] [address]) [address] [place] [address] Social History Tobacco Use Types Packs/Day Years Used Date Former Smoker Smokeless Tobacco: Never Used Alcohol Use Standard Drinks/Week Comments No 0 (1 standard drink = 0.6 oz pure alcoho l) Sex Assigned at Date Recorded Female 09/25/2021 8:41 EDT documented as of this encounter Last Filed Vital Signs Vital Sign Reading Time Taken Comments Blood Pressure 140/68 08/19/2018 0840 EDT Pulse 72 08/19/2018 0840 EDT Temperature - - Respiratory Rate 14 08/19/2018 0840 EDT Oxygen Saturation - - Inhaled Oxygen Concentration - - Weight 99.3 kg (219 lb) 08/19/2018 0840 EDT Height - - Body Mass Index 43 07/06/2018 1503 EDT documented in this encounter [...] documented as of this encounter Progress Notes Mary Anne Thomas, RN - 08/18/2018 1254 EDT On Treatment Visit Assessment: Roseann Wilcox is currently receiving radiation therapy treatment and is being seen today for her weekly on treatment visit. The encounter diagnosis was Endometrial cancer ([facility]). 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: 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 Anorectal: 1-2 soft bm per day, very dependent on diet uses colace and miralax Neurologic: a/o x3 Treatment Related Toxicity: Fatigue: 1-Fatigue relieved by rest Pain: 0-None Dermatitis: 0-None Anorexia: 0-None Weight Loss: 0-<5% from baseline Abdominal Pain: 0-None Nausea: 0-None Vomitin-None Diarrhea: 0-None Constipation: 1-Occasional or intermittent S/S: occ use of stool softeners, laxatives, enema Dyspepsia: 0-None Proctitis: 0-None Bladder Spasm: 0-None Cystitis: 0-None Incontinence: 0-None Urinary Frequency: 0-None Urinary Retention: 0-None Weekly Review: Impression: Performance Status: 0-Fully active, able to carry on all pre-disease performance without restriction Plan: Plan: Continue per plan documented in this encounter Plan of Treatment Upcoming Encounters Date Type Specialty Care Team Description 03/28/2022 Office Visit Gynecologic Oncology Kush Liz PA-C [address] [facility], [facility], [facility] [address] [place], [place] [address] (Wo rk) documented as of this encounter Visit Diagnoses Diagnosis Endometrial cancer (HCC-CMS) (HCC) - [facility] Malignant neoplasm of corpus uteri, exce pt isthmus documented in this encounter Care Teams Client Support Associate Relationship Specialty Start Date End Date Eve Londono MD PCP - General 04/18/17 [address] [place] [address] documented as of this encounter
--- OUTSIDE RECORDS SUMMARY | 2022-01-25 01:49 | XMS_ITS | Encounter Summary ---
:1945 Author Organization [facility] Address [address] [place] [address] Care Team Providers Name Role Phone Eve Londono MD Primary Care Provider Reason for Visit Reason Comments Follow-up Encounter Details Date Type Department Care Team Description 02/04/2019 Office Visit [facility] Vesta Lizo ry of Women's Services - HUMAIRA Zeng endometrial cancer [address] (Primary Dx) [address] [phone] [facility], Level [address] [place] [address] (Wo rk) Social History Tobacco Use Types Packs/Day Years Used Date Former Smoker Smokeless Tobacco: Never Used Alcohol Use Standard Drinks/Week Comments No 0 (1 standard drink = 0.6 oz pure alcoho l) Sex Assigned at Date Recorded Female 09/25/2021 8:41 EDT documented as of this encounter Last Filed Vital Signs Vital Sign Reading Time Taken Comments Blood Pressure 120/68 02/04/2019 1251 EDT Pulse - - Temperature - - Respiratory Rate - - Oxygen Saturation - - Inhaled Oxygen Concentration - - Weight 101.2 kg (223 lb) 02/04/2019 1251 EDT Height 152 cm (4' 11.84) 02/04/2019 1251 EDT Body Mass Index 43.78 02/04/2019 1251 EDT documented in this encounter Functional Status [...] as of this encounter Discharge Diagnoses Diagnosis Z85.42 Personal history of malignant chava plasm of other parts of uterus-Z85.42[ICD-10-CM] documented in this encounter Discharge Disposition Disposition Code Departure Means Destination Auto Discharge documented in this encounter Progress Notes Vesta Liz PA - 02/04/2019 1300 EDT Chief Complaint Patient presents with ??? Follow-up History of present illness Roseann Wilcox is a 73 y.o. woman [...] for clinical trial.NA 8. Imaging history: CT today (02/04/19), negative for recurrent disease Pelvic MRI 07/03/18: vaginal mass, no pelciv lymphadenopathy. 9. Genetics Roseann this morning in preparation for this visit, returns today for a surveillance visit for her history of recurrent endometrial cancer. She had a CAT scan that was done earlier today in preparation for this visit, it is negative for any evidence of metastatic disease or lymphadenopathy in the abdome n or pelvis. Today, she states that she feels well, and specifically denies any changes in her weight, chest pain, shortness of breath, nausea or vomiting, abdominal pain or distension, changes in her bowel or bladder patterns, or vaginal bleeding, discharge, itching or irritation. Her performance status is 0. Patient Active Problem List Diagnosis ??? Endometrial cancer (HCC-CMS) Past Medical History: Diagnosis Date ??? Cancer (HCC-CMS) ??? High cholesterol ??? HTN (hypertension) ??? Obesity ??? Sleep apnea No past surgical history on file. Family History Family as of 02/04/2019 Problem Relation Name Age of Onset Comments Source Melanoma Paternal Aunt ? Provider Family Status as of 02/04/2019 Relation Name Status Comments Sex (Gender) Father Mother Source Paternal Aunt ? F ? Provider Current Outpatient Medications: acetaminophen (TYLENOL) 500 mg tablet cholecalciferol, Vitamin D3, 1,000 unit tablet cyanocobalamin (VITAMIN B-12) 500 mcg tablet docusate sodium (COLACE) 100 mg capsule fexofenadine (RADHA) 60 mg tablet fluocinonide (LIDEX) 0.05 % cream fluticasone (FLONASE) 50 mcg/actuation nasal spray folic acid (FOLVITE) 400 mcg tablet hydroCHLOROthiazide (HYDRODIURIL) 25 mg tablet hydrocortisone 0.5 % cream levothyroxine (SYNTHROID) 25 mcg tablet losartan (COZAAR) 100 mg tablet Magnesium 250 mg tablet Methylcellulose, Laxative, 500 mg tablet mupirocin (BACTROBAN) 2 % ointment nystatin-triamcinolone (MYCOLOG II) cream oxymetazoline HCl (NASAL SPRAY 12 HOUR NASAL) polyethylene glycol 3350 (MIRALAX ORAL) Potassium Gluconate 595 mg (99 mg) tablet PSYLLIUM HUSK, ASPARTAME, ORAL Selenium 200 mcg tablet simvastatin (ZOCOR) 20 mg tablet No current facility-administered medications for this visit. Allergies Allergen Reactions ??? Aspirin Hives convulsions ??? Enalapril Leg cramps ??? Latex Rash redness ??? Other - See Comments Dust, Mold Review of symptoms Review of Systems Constitutional: Negative. HENT: Negative. Eyes: Negative. Respiratory: Negative. Cardiovascular: Negative. Gastrointestinal: Negative. Endocrine: Negative. Genitourinary: Negative. Musculoskeletal: Negative. Skin: Negative. Neurological: Negative. Hematological: Negative. Psychiatric/Behavioral: Negative. Physical exam BP 120/68 Ht 152 cm (59.84) Wt (!) 101.2 kg (223 lb) BMI 43.78 kg/m?? Physical Exam Constitutional: She is well-developed, well-nourished, and in no distress. No distress. HENT: Head: Normocephalic and atraumatic. Cardiovascular: Normal rate and regular rhythm. Exam reveals no gallop and no friction rub. No murmur heard. Pulmonary/Chest: Effort normal and breath sounds normal. No respiratory distress. She has no wheezes. She has no rales. Abdominal: Soft. She exhibits no distension and no mass. There is no tenderness. Genitourinary: Vagina normal. Vulva exhibits no erythema, no exudate, no lesion and no rash. Genitourinary Comments: Speculum exam reveals that the vaginal cuff is well healed, without any evidence of masses or or exophytic lesions. Bimanual exam is without any masses or nodularity. Cervix, uterus and adnexa are surgically absent. Lymphadenopathy: She has no cervical adenopathy. Skin: She is not diaphoretic. Assessment Roseann Wilcox is a 73 y.o. woman with a history of recurrent endometrial cancer, currently doing well and ALFREDO. Plan Today I discussed with Roseann that based on her lack of worrisome symptoms, and no findings on clinical exam she continues to be without evidence of recurrent endometrial cancer. She will return to [facility] in 3 months for ongoing surveillance. We discussed that she voiced understanding that she should call or return to see me sooner should she have any new or worrisome symptoms such as new or different abdominal pain, pressure, bloating, change in her bowel bladder habits, vaginal bleeding, pain or swelling her lower extremities, or any other concerns. documented in this encounter Plan of Treatment Upcoming Encounters Date Type Specialty Care Team Description 03/28/2022 Office Visit Gynecologic Oncology Kush Liz PA-C [address] [place] [facility], [facility], [address] [place], [place] [address] (Wo rk) documented as of this encounter Visit Diagnoses Diagnosis History of endometrial cancer - Primary Personal history of malignant neoplasm o f other parts of uterus documented in this encounter Discontinued Medications Medication Sig Discontinue Reason Start Date End Date lisinopril (PRINIVIL, Take 20 mg by Patient Stopped Taking 02/04/2019 ZESTRIL) 10 mg tablet mouth at bedtime. documented as of this encounter Historical Medications This list may reflect changes made after this encounter. Medication Sig Dispensed Refills Start Date End Date losartan (COZAAR) 100 mg Take 100 mg by mouth 0 tablet daily. added in this encounter Care Teams Stock Letterer Relationship Specialty Start Date End Date Eve Londono MD PCP - General 04/18/17 [address] [place] [address] documented as of this encounter
--- OUTSIDE RECORDS SUMMARY | 2022-01-25 01:49 | XMS_ITS | Encounter Summary ---
:1945 Author Organization [facility] Address [address] [place] [address] Care Team Providers Name Role Phone Eve Londono MD Primary Care Provider Reason for Visit Reason Onset Date Comments Other 11/09/2018 Encounter Details Date Type Department Care Team Description 11/09/2018 Telephone [facility] Women's Brent Nobles RN Other Services - [facility] [address] [place] [address] Social History Tobacco Use Types [...] this encounter Miscellaneous Notes Telephone Encounter - Karen Culver RN - 11/09/2018 0921 EDT Spoke with Roseann and let her know that she doesn't need to be fasting for her Creatinine blood draw. She is asking if she can have the blood draw in the morning prior to the scan? She asked what time the lab opens. I let her know that I would find out if that is ok for her to do and she is informed of the lab hours. Pt has no further questions at this time. LVM for Roseann stating this is the nurse from [facility]'s office calling to let you know that they will need the result of that blood draw prior to your scan. One option is that we can order it as a STAT lab and you can have it done in the morning just before having your scan, or you can have it done afew days before at your local lab. Just let us know what you prefer, then we can fax the order to your local lab or we can change your order here to 'STAT'. [phone]. documented in this encounter Plan of Treatment Upcoming Encounters Date Type Specialty Care Team Description 03/28/2022 Office Visit Gynecologic Oncology Kush Liz PA-C 111 [facility], [facility], [facility] 4 [place], [place] [address] (Wo rk) documented as of this encounter Visit Diagnoses Not on filedocumented in this encounter Care Teams Hanging Flags Decorator Relationship Specialty Start Date End Date Eve Londono MD PCP - General 04/18/17 [address] [place] [address] documented as of this encounter
--- OUTSIDE RECORDS SUMMARY | 2022-01-25 01:49 | XMS_ITS | Encounter Summary ---
:1945 Author Organization [facility] Address [address] [place] [address] Care Team Providers Name Role Phone Eve Londono MD Primary Care Provider Encounter Details Date Type Department Care Team Description 07/15/2018 Documentation Visit [facility] Joey Sheikh Radiation Oncology - Main [place] [address] [place] [address] Social History Tobacco Use Types [...] documented as of this encounter Progress Notes Joey Sheikh - 07/15/2018 1545 EDT SOCIAL WORK ASSESSMENT: Amount of Distress: 1 Practical Problems: Treatment Decisions Family Problems: Family Health Issues Emotional Problems: Worry, Fears, Nervousness Physical Problems: None Spiritual/Taoist Concerns: No Other Problems: Social Work Assessment: Met with Roseann prior to her SIM and education visit. She is present for todays appointment with her Catracho. Discussed the role of social work and other supportive services offered. Patient agreed to a referral to [facility]. She plans to tour there after her appointment here. Pt noted her primary concern is exposure to radiation. She reviewed her understanding of her treatment and the need for a full bladder. Her shared he had so many CT Scans he was told not to have anymore, this make pt more concerned about her exposure. Working Diagnosis/Presenting Problem: Endometrial Cancer Living Arrangements: Patient lives in [place], [place] Functional Status (psychosocial and physical): Pt concerned about exposure to radiation. Social Supports: Patients and adult children. Existing Community Resources: None noted Advanced Directives/DPOA: No ADR on file Cultural/Spiritual Needs: None noted Insurance/Financial Needs: Pt denies any insurance or financial concerns. Has medicare and BC/BS Transportation Needs: None noted Plan: 1. Referral to [facility] faxed JOCE Heath phone [phone] pager [phone] documented in this encounter Plan of Treatment Upcoming Encounters Date Type Specialty Care Team Description 03/28/2022 Office Visit Gynecologic Oncology Kush Liz PA-C [address] [place] A venue [facility], [facility], [address] [place], [place] [address] (Wo rk) documented as of this encounter Visit Diagnoses Not on filedocumented in this encounter Care Teams Preventive Medicine Specialist Relationship Specialty Start Date End Date Eve Londono MD PCP - General 04/18/17 [address] [place] [address] documented as of this encounter
--- OUTSIDE RECORDS SUMMARY | 2022-01-25 01:49 | XMS_ITS | Encounter Summary ---
:1945 Author Organization [facility] Address [address] [place] [address] Care Team Providers Name Role Phone Eve Londono MD Primary Care Provider Reason for Visit Reason Onset Date Comments Results 01/29/2019 Encounter Details Date Type Department Care Team Description 01/29/2019 Telephone [facility] Women[facility]iffer Echavarria RN Results Services - [facility] [address] [place] [address] Social History Tobacco Use Types [...] this encounter Miscellaneous Notes Telephone Encounter - Jeniffer Thompson RN - 01/29/2019 1038 EDT Call from patient. Patient had left message to speak to nurse. I called patient back. Patient wantedto know results of the creatinine from 01/28/19. Creatinine was 0.67 which is within normal range. Patient wanted to let provider know that she was taking prednisone, was on a prednisone taper from her primary care per patient related to a cough that she had. Patient also complains of having constipation and she did take MiraLAX. Patient states that her bowel movement was whitish, had a white filmon it . Patient states other bowel movements she had is more brown . Informed patient that I willlet her know, but also she should monitor and if has a change in bowel pattern or color should reachout to her PCP. documented in this encounter Plan of Treatment Upcoming Encounters Date Type Specialty Care Team Description 03/28/2022 Office Visit Gynecologic Oncology Kush Liz PA-C 111 [facility], Level [address] [place], [place] [address] (Wo rk) documented as of this encounter Visit Diagnoses Not on filedocumented in this encounter Care Teams Funnel Coater Relationship Specialty Start Date End Date Eve Londono MD PCP - General 04/18/17 [address] [place] [address] documented as of this encounter
--- OUTSIDE RECORDS SUMMARY | 2022-01-25 01:49 | XMS_ITS | Encounter Summary ---
:1945 Author Organization [facility] Address [address] [place] [address] Care Team Providers Name Role Phone Eve Londono MD Primary Care Provider Reason for Visit Reason Comments Cancer Encounter Details Date Type Department Care Team Description 07/15/2018 Radiation Therapy [facility] Elia Flower RN Endometrial cancer Visit Radiation Oncology [address] [place] [address] ([facility]) ([facility] [address] Dx) [address] [place] [id number] Social History Tobacco Use Types Packs/Day Years [...] documented as of this encounter Progress Notes Ryan Flower, RN - 07/15/2018 1525 EDT The encounter diagnosis was Endometrial cancer ([facility]). Treatment Information Plan for Treatment: Definitive Radiation Therapy to low pelvis for recurrent endometrial cancer. Start Date/Time: 07/30/18 Radiation Plan: Low pelvis 180cGy x [id number] Vaginal Cuff Boost 180cGy x [id number] Chemotherapy Plan: None Transport Plan: Pt will be staying at [facility]. Education Session Established contact and assessed patient readiness to learn: Yes Reviewed treatment plan, goals and possible acute side effects:Yes Reviewed site specific skin care, anticipated acute side effects and care management of the acute side effects:Yes Physician specific care management reviewed:Yes Learning objective met and will reinforce as needed:Yes Comments: Written patient and family education material provided: Yes Patient Information Alerts reviewed: Yes Allergies reviewed: Yes Cardiac pacemaker: No Implantable defibrillator: No Medication reconciliation completed: Yes Patient Intake form reviewed: No(NO database available. I reveiwed H&P and asked pertinent Rad Onc questions. ) Pharmacy confirmed: Yes Smoking Information Current smoker: No If yes, was smoking cessation discussed? Was patient referral initiated? 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 Joey made [facility] referral and pt will take a tour today. [facility]: Yes Other: Subjective Note: General: I met with Roseann Wilcox and her , Catracho, after her CT simulation to low pelvis forendometiral ca. She will be starting radiation therapy on 07/29/18. Roseann reports vaginal spotting after APPLICATION PACKAGER exams but no spontaneous vaginal bleeding. She denies pelvic pain. Nutrition: Reg diet. Good appetite. Pain: Pelvis Numeric Pain Level (Scale 1-10): 0 Average Pain Level: 0 Minimum Pain Level: 0 Maximum Pain Level: 0 Pain Treatment: Taking nothing for pain. Narcotic: No Psychosocial: Supportive , Catracho. Daughter at home. Will stay at [facility] during XRT. Physical Exam: General: Indpendent with ambulation. General Appearance: Appears comfortable, no acute distress Here With: , Catracho Skin Exam: Reviewed skin care during XRT. APPLICATION PACKAGER: Pt was diagnosed with Endometrial Ca in 2017. Treated with hysterectomy. No adjuvant treatment.Recently developed vaginal bleeding and was found to have a mass at the top of her vagina. Biospy showed recurrent endometiral cancer. Neurologic: A and O x 3. Impression: Performance Status: 0-Fully active, able to carry on all pre-disease performance without restriction Disease State: Stable Treatment Break/Deviation: No Plan: Plan: Continue per plan Plan Comment: Definitive XRT to pelvis. Medication Changes: None Patient Education Topic: Radiation Therapy Method: Verbal and written info provided. Taught to: Pt and her , Catracho Barriers: NO barriers noted Outcomes: Verbalized understanding. Signature: Ryan Flower RN documented in this encounter Plan of Treatment Upcoming Encounters Date Type Specialty Care Team Description 03/28/2022 Office Visit Gynecologic Oncology Kush Liz PA-C [address] [place] [address], [facility] 4 [place], [place] [address] (Wo rk) documented as of this encounter Visit Diagnoses Diagnosis Endometrial cancer (HCC-[facility]) ([facility]) - [facility] Malignant neoplasm of corpus uteri, exce pt isthmus documented in this encounter Care Teams Sourcing Engineer Relationship Specialty Start Date End Date Eve Londono MD PCP - General 04/18/17 [address] [place] [address] documented as of this encounter
--- OUTSIDE RECORDS SUMMARY | 2022-01-25 01:49 | XMS_ITS | Encounter Summary ---
:1945 Author Organization [facility] Address [address] [place] [address] Care Team Providers Name Role Phone Eve Londono MD Primary Care Provider Encounter Details Date Type Department Care Team Description 02/04/2019 Hospital Encounter [facility] - Micah Liz [facility] HUMAIRA Zeng 111 [facility] [address] [place], [place] [id number] [place] [address] Pavilion, Level [address] [place] [address] (Wo rk) Social History Tobacco [...] parts of uterus-Z85.42[ICD-10-CM] documented in this encounter Medications at Time of Discharge [...] Disposition Code Departure Means Destination Auto Discharge Home documented in this encounter Plan of Treatment Upcoming Encounters Date Type Specialty Care Team Description 03/28/2022 Office Visit Gynecologic Oncology Kush Liz PA-C 111 [facility], [facility] 4 [place], [place] [address] (Wo rk) documented as of this encounter Visit Diagnoses Not on filedocumented in this encounter Care Teams Environmental Health And Safety Intern Relationship Specialty Start Date End Date Eve Londono MD PCP - General 04/18/17 [address] [place] [address] documented as of this encounter
--- OUTSIDE RECORDS SUMMARY | 2022-01-25 01:49 | XMS_ITS | Encounter Summary ---
:1945 Author Organization [facility] Address [address] [place] [address] Care Team Providers Name Role Phone Eve Londono MD Primary Care Provider Encounter Details Date Type Department Care Team Description 05/19/2019 Orders Only [facility] Vesta Liz etridharmesh cancer Women's Services - HUMAIRA Zeng ([facility]) (Primary Main [address] Dx) [address] [place], [place] [phone] [place] [address] [place], Level [address] [place] [address] (Wo rk) Social History Tobacco [...] Oncology Kush Liz PA-C 111 [facility], [facility], [facility] 4 [place], [place] [address] (Wo rk) documented as of this encounter Visit Diagnoses Diagnosis Endometrial cancer (HCC-[facility]) ([facility]) - [facility] Malignant neoplasm of corpus uteri, exce pt isthmus documented in this encounter Care Teams Boiler Tenders Supervisor Relationship Specialty Start Date End Date Eve Londono MD PCP - General 04/18/17 [address] [place] [address] documented as of this encounter
--- OUTSIDE RECORDS SUMMARY | 2022-01-25 01:49 | XMS_ITS | Encounter Summary ---
:1945 Author Organization [facility] Address [address] [place] [address] Care Team Providers Name Role Phone Eve Londono MD Primary Care Provider Reason for Visit Reason Comments Cancer Encounter Details Date Type Department Care Team Description 08/26/2018 Radiation Therapy [facility] Lillian Rivas, Endometrial cancer Visit Radiation Oncology MD ([facility]) (Primary - Main [address]) 111 [facility], [address] [place] [address] [address] [place] [address] Social History Tobacco Use Types Packs/Day Years [...] documented as of this encounter Progress Notes Lillian Rivas MD - 08/26/20182043 EDT On Treatment Visit Assessment: Roseann Wilcox is currently receiving radiation therapy treatment and is being seen today for her weekly on treatment visit. The encounter diagnosis was Endometrial cancer (HCC-CMS). Assessment: Dr. Rivas, 08/26/18 Radiation Therapy: Cumulative RT Dose 3600 cGy Daily RT Dose 180 cGy Total RT Planned Dose 4500 plus boost cGy Chemotherapy Agent none Subjective Note: pt feeling well, no diarrhea. Mild dysuria if she doesn't drink enough after tx. Physical Exam: speculum exam shows tumor has diminished in size 30-50% Treatment Related Toxicity: Fatigue: 1-Fatigue relieved by rest Pain: 0-None Alopecia: 0-None Dermatitis: 1-Faint erythema or dry desquamationgrade 1 dysuria Weekly Review: Radiation Set-up Imaging Reviewed: Yes Medications and port films reviewed. Impression: Disease State: Partial response Treatment Break/Deviation: No Pt tolerating treatment as expected. Plan: Plan: Continue per plan Medication Changes: none Continue radiation therapy as planned. Lillian Rivas MD Radiation Oncology Pager [phone] Office [phone] documented in this encounter Plan of Treatment Upcoming Encounters Date Type Specialty Care Team Description 03/28/2022 Office Visit Gynecologic Oncology Kush Liz PA-C [address] [place] [address] A [facility], [facility], Level [address] [place], [place] [address] (Wo rk) documented as of this encounter Visit Diagnoses Diagnosis Endometrial cancer (HCC-CMS) ([facility]) - Sonia reggie Malignant neoplasm of corpus uteri, exce pt isthmus documented in this encounter Care Teams Other Wood Processing Machine Operator Relationship Specialty Start Date End Date Eve Londono MD PCP - General 04/18/17 [address] [place] [address] documented as of this encounter
--- OUTSIDE RECORDS SUMMARY | 2022-01-25 01:49 | XMS_ITS | Encounter Summary ---
:1945 Author Organization [facility] Address [address] [place] [address] Care Team Providers Name Role Phone Eve Londono MD Primary Care Provider Reason for Visit Reason Onset Date Comments Follow-up 09/16/2018 Encounter Details Date Type Department Care Team Description 09/16/2018 Telephone [facility] Radiation Jordan Thomas RN Follow-up Oncology - Main [facility] [address] [place] [address] Social History Tobacco Use Types [...] this encounter Miscellaneous Notes Telephone Encounter - Mary Anne Thomas, RN - 09/16/2018 1440 EDT End of tx call Pt reports she has no s/e from radiation. She has f/u with impact hammer operator scheduled for later this summer. documented in this encounter Plan of Treatment Upcoming Encounters Date Type Specialty Care Team Description 03/28/2022 Office Visit Gynecologic Oncology Kush Liz PA-C 111 [facility], [facility], [address] [place], [place] [address] (Wo rk) documented as of this encounter Visit Diagnoses Not on filedocumented in this encounter Care Teams Hosiery Bagger Relationship Specialty Start Date End Date Eve Londono MD PCP - General 04/18/17 [address] [place] [address] documented as of this encounter
--- OUTSIDE RECORDS SUMMARY | 2022-01-25 01:49 | XMS_ITS | Encounter Summary ---
:1945 Author Organization [facility] Address [address] [place] [address] Care Team Providers Name Role Phone Eve Londono MD Primary Care Provider Encounter Details Date Type Department Care Team Description 07/03/2018 Hospital Encounter [facility]- Shama Banegas MD [address] [address] [address], [place] [id number] (Wo rk) Social History Tobacco Use Types [...] Diagnosis C54.1 Malignant neoplasm of endometrium- C54.1[ICD-10-CM] Z98.890 Other specified postprocedural s tates-Z98.890[ICD-10-CM] documented in this encounter Medications at Time of Discharge Medication Sig Dispensed Refills Start Date End Date cholecalciferol, Vitamin D3, Take 400 Units by 0 1,000 unit tablet mouth daily. cyanocobalamin (VITAMIN Take 1,000 mcg by 0 B-12) 500 mcg tablet mouth daily. docusate sodium (COLACE) 100 Take 1 Cap by 60 Cap 2 06/20 mg capsule mouth 2 times daily. fexofenadine (RADHA) 60 mg Take 180 mg by 0 tablet mouth at bedtime. fluticasone (FLONASE) 50 Instill 100 mcg 0 [...] mcg by 0 mcg tablet mouth daily. Magnesium 250 mg tablet Take 1 Tab by 0 mouth daily. mupirocin (BACTROBAN) 2 % Apply topically 0 ointment as needed. nystatin-triamcinolone Apply topically 4 0 (MYCOLOG II) cream times daily as needed. Reported on 07/15/2016 Potassium Gluconate 595 mg Take 1 Tab by 0 (99 mg) tablet mouth daily. Selenium 200 mcg tablet Take 200 mg by 0 mouth daily. simvastatin (ZOCOR) 20 mg Take 20 mg by 0 tabletIndications: hold mouth at bedtime. until 2 weeks post radiation therapy acetaminophen (TYLENOL) 500 Take 500 mg by 0 08/11/2018 mg tablet mouth every 6 hours as needed for Pain. Lactobacillus acidophilus Take 1 Cap by 0 07/30/2018 (PROBIOTIC) 10 billion cell mouth daily. capsule lisinopril (PRINIVIL, Take 20 mg by 0 02/04/2019 ZESTRIL) 10 mg tablet mouth at bedtime. Methylcellulose, Laxative, Take 500 mg by 0 04/18/2020 500 mg tabletIndications: mouth daily. patient not taking oxymetazoline HCl (NASAL by nasal route. 0 04/18/2020 SPRAY 12 HOUR NASAL) psyllium, 5.8 G, (METAMUCIL) Take 1 Packet by 0 11/04/2018 packet mouth daily. selenium 100 mcg tablet Take 200 mcg by 0 08/11/2018 mouth daily. Reported on 08/12/2016 documented as of this encounter Discharge Disposition Disposition Code Departure Means Destination Auto Discharge Home documented in this encounter Plan of Treatment Upcoming Encounters Date Type Specialty Care Team Description 03/28/2022 Office Visit Gynecologic Oncology Kush Liz PA-C 111 [facility], [facility], [facility] 4 [place], [place] [address] (Wo rk) documented as of this encounter Visit Diagnoses Not on filedocumented in this encounter Care Teams Merchandise Flow Team Leader Relationship Specialty Start Date End Date Eve Londono MD PCP - General 04/18/17 [address] [place] [address] documented as of this encounter
--- OUTSIDE RECORDS SUMMARY | 2022-01-25 01:49 | XMS_ITS | Encounter Summary ---
:1945 Author Organization [facility] Address [address] [place] [address] Care Team Providers Name Role Phone Eve Londono MD Primary Care Provider Encounter Details Date Type Department Care Team Description 07/20/2018 Hospital Encounter [facility] Landy Rivas MD [address] [address] Radiation Oncology - Debby Dewitt MD PhD [address] [address] [facility] [address] [place] [address] Social History Tobacco Use Types [...] of endometrium- C54.1[ICD-10-CM] documented in this encounter Medications at Time [...] 0 04/18/2020 ORALIndications: patient not daily. taking psyllium, 5.8 G, (METAMUCIL) Take 1 Packet by 0 11/04/2018 packet mouth daily. selenium 100 mcg tablet Take 200 mcg by 0 08/11/2018 mouth daily. Reported on 08/12/2016 documented as of this encounter Discharge Disposition Disposition Code Departure Means Destination Home or Self Snf documented in this encounter Plan of Treatment Upcoming Encounters Date Type Specialty Care Team Description 03/28/2022 Office Visit Gynecologic Oncology Kush Liz PA-C 111 [facility], [facility], [address] [place], [place] [address] (Wo rk) documented as of this encounter Visit Diagnoses Not on filedocumented in this encounter Care Teams Men'S Leather Dress Belt Maker Relationship Specialty Start Date End Date Eev Londono MD PCP - General 04/18/17 [address] [place] [address] documented as of this encounter
--- OUTSIDE RECORDS SUMMARY | 2022-01-25 01:49 | XMS_ITS | Encounter Summary ---
:1945 Author Organization [facility] Address [address] [place] [id number] Care Team Providers Name Role Phone Eve Londono MD Primary Care Provider Reason for Visit Reason Comments Follow-up history of endometrial cance r Encounter Details Date Type Department Care Team Description 05/11/2019 Office Visit [facility] [place] [facility] Vesta Liz Histo ry of endometrial cancer (Primary Dx); Gynecologic Oncology HUMAIRA Zeng Vaginal lesion - [id number] [place] [address] [place], [address] [place] [address] (Wo rk) Social History Tobacco Use Types Packs/Day Years Used Date Former Smoker Smokeless Tobacco: Never Used Alcohol Use Standard Drinks/Week Comments No 0 (1 standard drink = 0.6 oz pure alcoho l) Sex Assigned at Date Recorded Female 09/25/2021 8:41 EDT documented as of this encounter Last Filed Vital Signs Vital Sign Reading Time Taken Comments Blood Pressure 124/78 05/11/2019 0821 EST Pulse - - Temperature - - Respiratory Rate - - Oxygen Saturation - - Inhaled Oxygen Concentration - - Weight 100.5 kg (221 lb 9.6 oz) 05/11/2019 0821 EST Height 152 cm (4' 11.84) 05/11/2019 0821 EST Body Mass Index 43.51 05/11/2019 0821 EST documented in this encounter Functional Status [...] encounter Progress Notes Vesta Liz PA - 05/11/2019 4377 EST Subjective: Patient ID: Roseann Wilcox is an 73 y.o. female. Chief Complaint Patient presents with [...] mass, no pelciv lymphadenopathy. 9. Genetics Roseann returns today for a routine 3-month surveillance visit.Today, she states that she feels well,and specifically denies any changes in her weight, chest pain, shortness of breath, nausea or vomiting, abdominal pain or distension, changes in her bowel or bladder patterns, or vaginal bleeding, discharge, itching or irritation. As noted above, she had a CAT scan prior to her last visit which was negative for any evidence of recurrent disease. She states that overall she is feeling great, she feels like her energy level is actually even better than it was prior to her original diagnosis. Patient Active Problem List Diagnosis ??? Endometrial [...] - See Comments Dust, Mold Review of Systems Constitutional: Negative. HENT: Negative. Eyes: Negative. Respiratory: Negative. Cardiovascular: Negative. Gastrointestinal: Negative. Endocrine: Negative. Genitourinary: Negative. Musculoskeletal: Negative. Skin: Negative. Allergic/Immunologic: Negative. Neurological: Negative. Hematological: Negative. Psychiatric/Behavioral: Negative. - See HPI Objective: BP 124/78 Ht 152 cm (59.84) Wt 100.5 kg (221 lb 9.6 oz) BMI 43.51 kg/m?? Physical Exam Constitutional: She is oriented [...] She exhibits no distension. There is no tenderness. There is no rebound. Genitourinary: Vagina normal. There is no rash, tenderness, lesion or injury on the right labia. There is no rash, tenderness, lesion or injury on the left labia. No vaginal erythema, tenderness or bleeding. No signs of injury around the vagina. No vaginal discharge found. Speculum exam reveals that the vaginal cuff is well healed, without any evidence of masses or or exophytic lesions. On speculum exam however, there is an erythematous lesion on her left lateral vaginalwall, approximately long-term up. This was grasped with ring forceps, and placed in formalin to sent to pathology. There is minimal bleeding, which was well controlled with pressure and silver nitrate. Bimanual exam is without any masses or [...] and thought content normal. Assessment: History of grade 1 endometrial cancer with subsequent recurrence, status post radiation therapy, lesion on left lateral vaginal wall. Plan: There are no diagnoses linked to this encounter. As above, there is a new lesion on her left lateral vaginal wall, which has not been bleeding, but was a bit friable on exam. This was removed with ring forceps, placed in formalin and sent to pathology. I will follow notify the patient of the result, and proceed accordingly at that time. SUJEY Chaudhari documented in this encounter Plan of Treatment Upcoming Encounters Date Type Specialty Care Team Description 03/28/2022 Office Visit Gynecologic Oncology Kush Liz PA-[place] [address] [place] [facility], [facility], [facility] [address] [place], [place] [address] (Wo rk) documented as of this encounter Procedures Procedure Name Priority Date/Time Associated Diagnosis Comme nts SURGICAL PATHOLOGY Routine 05/11/2019 9:38 EST History of Re sults for this endometrial canc er procedure are in Vaginal lesion the results section. documented in this encounter Results SURGICAL PATHOLOGY (05/11/2019 9:38 EST) Final Diagnosis A. VAGINA, LEFT WALL, BIOPSY: [facility] Electronically - Scant atypical glands, hi ghly suspicious for recurrent endometrioid adenocarcinoma. See comment. CENTER signed by Stephanie naidu LABORATORY Qi Emanuel MD SERVICES on 05/17/2019 at 0836 Chinmay Virk MD Diagnosis Comment Access Rep slides from t he prior adenocarcinoma of the endometrium ([id number]) were reviewed in correlation with the current material and the current cells are morphologically similar to the prior [facility] mor. The scant nature of the biopsy specimen, which includes only small groups of detached atypical cells, precludes definitive diagnosis. Access Rep slides of this case [facility] partmental consultation conference. Deeper secti ons have been examined. LABORATORY SERVICES Clinical History History of [facility] endometrial cancer, [place] with subsequent LABORATORY vaginal cuff SERVICES recurrence x/p radiation. Vaginal lesion left vaginal wall. Attestation By the signature [facility] Electronica lly below, the attending CENTER signed by Perry, physician certifies LABORATORY Uday Emanuel MD that they have SERVICES on 05/17/2019 at 0836 personally conducted a gross and/or microscopic examination of the described specimens and rendered or confirmed the above diagnosis. Gross Description A. Received in formalin labe lled with proper patient identification (initials P, M) and vaginal tissue is an aggregate of soft red- brown tissue (0.5 x 0.2 x 0.1 cm). Entirely submitted in A1. [facility] MIHRAB ALI 05/11/2019 10:58 LABORATORY SERVICES Scanned Images [facility] LABORATORY SERVICES Specimen Tissue - Entire vagina (body structure) Performing Organization Address City/State/ZIP Code Phon e Number [facility] [address] [place] [address] SERVICES documented in this encounter Visit Diagnoses Diagnosis History of endometrial cancer - Primary Personal history of malignant neoplasm o f other parts of uterus Vaginal lesion Other specified noninflammatory disorder of vagina documented in this encounter Care Teams Floating Derrick Operator Relationship Specialty Start Date End Date Eve Londono MD PCP - General 04/18/17 [address] [place] [address] documented as of this encounter
--- OUTSIDE RECORDS SUMMARY | 2022-01-25 01:49 | XMS_ITS | Encounter Summary ---
:1945 Author Organization [facility] Address [address] [place] [address] Care Team Providers Name Role Phone Eve Londono MD Primary Care Provider Encounter Details Date Type Department Care Team Description 06/19/2018 Hospital Encounter [facility] Landy Rivas MD Radiation Oncology - 111 [facility], [address] [place], [place] [address] [place] [address] [phone] (Wo rk) Social History Tobacco Use Types Packs/Day Years Used Date Never Smoker Smokeless Tobacco: Never Used Alcohol Use [...] Refills Start Date End Date cholecalciferol, Vitamin Take 400 Units by 0 D3, 1,000 unit tablet mouth daily. cyanocobalamin (VITAMIN Take 1,000 mcg by 0 B-12) 500 mcg tablet mouth daily. docusate sodium (COLACE) Take 1 Cap by 60 Cap 2 07/17/19 17 100 mg capsule mouth 2 times daily. fexofenadine (RADHA) 60 Take 180 mg by 0 mg tablet mouth at bedtime. fluticasone (FLONASE) 50 Instill 100 mcg 0 mcg/actuation nasal spray into both nostrils as needed. Reported on 07/15/2016 folic acid (FOLVITE) 400 Take 800 mcg by 0 mcg tablet mouth daily. hydroCHLOROthiazide Take 25 mg by 0 (HYDRODIURIL) 25 mg tablet mouth daily. hydrocortisone 0.5 % cream Apply topically 0 once a week. levothyroxine (SYNTHROID) Take 25 mcg by 0 25 mcg tablet mouth daily. Magnesium 250 mg tablet Take 1 Tab by 0 mouth daily. mupirocin (BACTROBAN) 2 % Apply topically as 0 ointment needed. nystatin-triamcinolone Apply topically 4 0 (MYCOLOG [...] mg tabletIndications: mouth daily. patient not taking Miscellaneous Medication - Nifedipine 0.2% 1 Each 1 10/2106/24/2018 See Admin Instructions ointment 15 g. Please compound for patient. Apply twice daily and after bowel movements. oxymetazoline HCl (NASAL by nasal route. 0 04/18/2020 SPRAY 12 HOUR NASAL) psyllium, 5.8 G, Take 1 Packet by 0 (METAMUCIL) packet mouth daily. selenium 100 mcg tablet Take 200 mcg by 0 08/11/2018 mouth daily. Reported on 08/12/2016 documented as of this encounter Discharge Disposition Disposition Code Departure Means Destination Home or Self [place] documented in this encounter Plan of Treatment Upcoming Encounters Date Type Specialty Care Team Description 03/28/2022 Office Visit Gynecologic Oncology Kush Liz PA-C 111 [facility], [facility] 4 [place], [place] [address] (Wo rk) documented as of this encounter Visit Diagnoses Not on filedocumented in this encounter Care Teams Eyeglass Lens Grinder Relationship Specialty Start Date End Date Eve Londono MD PCP - General 04/18/17 [address] [place] [address] documented as of this encounter
--- OUTSIDE RECORDS SUMMARY | 2022-01-25 01:49 | XMS_ITS | Encounter Summary ---
:1945 Author Organization [facility] Address [address] [place] [address] Care Team Providers Name Role Phone Eve Londono MD Primary Care Provider Reason for Visit Reason Onset Date Comments Diagnostic Imaging Report 05/19/2019 Encounter Details Date Type Department Care Team Description 05/19/2019 Telephone [facility] Vesta Liz Imaging Women's Services - HUMAIRA Zeng Report [address] [address] [address], [place] [address] (Wo rk) Social History Tobacco [...] this encounter Miscellaneous Notes Telephone Encounter - Krissy Villareal - 05/19/2019 1352 EST Images from the original note were not included. Krissy Villareal 05/19/2019 13:52 Push clears, eat light. documented in this encounter Plan of Treatment Upcoming Encounters Date Type Specialty Care Team Description 03/28/2022 Office Visit Gynecologic Oncology Kush Liz PA-C 111 [facility], [facility], [address] [place], [place] [address] (Wo rk) documented as of this encounter Visit Diagnoses Not on filedocumented in this encounter Care Teams Home Assessment Nurse Relationship Specialty Start Date End Date Eve Londono MD PCP - General 04/18/17 [address] [place] [address] documented as of this encounter
--- OUTSIDE RECORDS SUMMARY | 2022-01-25 01:49 | XMS_ITS | Encounter Summary ---
:1945 Author Organization [facility] Address [address] [place] [address] Care Team Providers Name Role Phone Eve Londono MD Primary Care Provider Reason for Visit Reason Comments Cancer Encounter Details Date Type Department Care Team Description 09/01/2018 Radiation Therapy [facility] Lida Thomas metrial cancer Visit Radiation Oncology - [facility] [place] ([facility]) (Primary Main Wise Dx) [address] [place] [address] Social History Tobacco Use Types Packs/Day Years Used Date Former Smoker Smokeless Tobacco: Never Used Alcohol Use Standard Drinks/Week Comments No 0 (1 standard drink = 0.6 oz pure alcoho l) Sex Assigned at Date Recorded Female 09/25/2021 8:41 EDT documented as of this encounter Last Filed Vital Signs Vital Sign Reading Time Taken Comments Blood Pressure 145/70 09/01/2018 1603 EDT Pulse 80 09/01/2018 1603 EDT Temperature - - Respiratory Rate 16 09/01/2018 1603 EDT Oxygen Saturation - - Inhaled Oxygen Concentration - - Weight 98.9 kg (218 lb) 09/01/2018 1603 EDT Height - - Body Mass Index 42.8 07/06/2018 1503 EDT documented in this encounter [...] Progress Notes Mary Anne Thomas, RN - 09/01/2018 1601 EDT On Treatment Visit Assessment: Roseann Wilcox is currently receiving radiation therapy treatment and is being seen today for her weekly on treatment visit. The encounter diagnosis was Endometrial cancer ([facility] Assessment: Assessment Completed By: Mary Anne Thomas RN (09/01/18 2503) Radiation Therapy: Cumulative RT Dose 4320 cGy Daily RT Dose 180 cGy Total RT Planned Dose 4500 cGy Chemotherapy Agent none Subjective Note: General: min fatigue is the only s/e from radiation she has, some looser frequent stools over weekend with change in diet while at home, Nutrition: reg lower fiber Pain: none Numeric Pain Level (Scale 1-10): 0 Physical Exam: BP: (!) 145/70 Pulse: 80 Resp: 16 Weight : 98.9 kg (218 lb) Weight Change: stable General Appearance: Appears comfortable, no acute distress Here With: self Skin Reaction: none Abdomen: denies n/v : occasional burning improves with increase po fluids HOME DEMONSTRATION AGENT: no bleeding or d/c Anorectal: 1-2 soft bm per day Neurologic: a/o x3 Treatment Related Toxicity: Fatigue: 1-Fatigue relieved by rest Pain: 0-None Anorexia: 0-None Weight Loss: 0-<5% from baseline Nausea: 0-None Vomitin-None Diarrhea: 1-Increase of <4 stools per day over baseline: mild increase in ostomy output Constipation: 1-Occasional or intermittent S/S: occ use of stool softeners, laxatives, enema Bladder Spasm: 0-None Cystitis: 0-None Incontinence: 0-None Urinary Frequency: 0-None Urinary Retention: 0-None Muscle Weakness: 0-None Headache: 0-None Impression: Performance Status: 0-Fully active, able to carry on all pre-disease performance without restriction Plan: Plan: Continue per plan documented in this encounter Plan of Treatment Upcoming Encounters Date Type Specialty Care Team Description 03/28/2022 Office Visit Gynecologic Oncology Kush Liz PA-C 111 [facility], [facility], [facility] 4 [place], [place] [address] (Wo rk) documented as of this encounter Visit Diagnoses Diagnosis Endometrial cancer (HCC-CMS) (HCC) - [facility] Malignant neoplasm of corpus uteri, exce pt isthmus documented in this encounter Care Teams Boilermaker Apprentice Relationship Specialty Start Date End Date Eve oLndono MD PCP - General 04/18/17 [address] [place] [address] documented as of this encounter
--- OUTSIDE RECORDS SUMMARY | 2022-01-25 01:49 | XMS_ITS | Encounter Summary ---
:1945 Author Organization [facility] Address [address] [place] [address] Care Team Providers Name Role Phone Eve Londono MD Primary Care Provider Reason for Visit Reason Comments Cancer Endometrial Consult (Other (Specify in Question)) - Specialty Report Received Specialty Diagnoses / Procedures Referred By Contact Refer red To Contact Radiation Oncology Diagnoses Endometrial cancer ([facility]) ([facility]) Will Banegas MD Gagne, Havaleh M, MD [address] [place] [address] [address] [facility], [facility], [facility] Pavilion, Level 4 Pavilion, Level 2 [place] [phone] Fax: Referral ID Status Reason Start Expiration Visits Visits Date Date Requested Authorized [id number] Specialty Specialty 06/26/2018 1 1 Report Services Received Required Encounter Details Date Type Department Care Team Description 07/06/2018 Office Visit [facility] Lillian Rivas MD Endometrial cancer Radiation Oncology - [address] [place] [address] ([facility]) ([facility]) [address] [facility], [place] [address] Pavilion, [place] [address] (Wo rk) Social History Tobacco Use Types Packs/Day Years Used Date Former Smoker Smokeless Tobacco: Never Used Alcohol Use Standard Drinks/Week Comments No 0 (1 standard drink = 0.6 oz pure alcoho l) Sex Assigned at Date Recorded Female 09/25/2021 8:41 EDT documented as of this encounter Last Filed Vital Signs Vital Sign Reading Time Taken Comments Blood Pressure 152/70 07/06/2018 1503 EDT Pulse 101 07/06/2018 1503 EDT Temperature 37.5 ??C (99.5 ??F) 07/06/2018 1503 EDT Respiratory Rate - - Oxygen Saturation 96% 07/06/2018 1503 EDT Inhaled Oxygen Concentration - - Weight 99.2 kg (218 lb 12.8 oz) 07/06/2018 1503 EDT Height 152 cm (4' 11.84) 07/06/2018 1503 EDT Body Mass Index 42.96 07/06/2018 1503 EDT documented in this encounter [...] Progress Notes Lillian Rivas MD, MD - 07/06/2018 1500 EDT DIVISION OF RADIATION ONCOLOGY Consult- 07/06/18 Diagnosis: Cancer Staging Endometrial cancer, Grade 1 Adenocarcinoma, FIGO Stage IA (pT1a, pN0, cM0) Referring Physician: Will Banegas MD HPI: a 73 yo woman who was diagnosed with endometrial cancer in 2017, and treated with hysterectomy.She was found to have grade 1 disease, with no myometrial invasion. She did not receive adjuvant therapy. More recently she has had vaginal bleeding and was found to have a mass at the top of the vagina. biopsy shows recurrent endometrial cancer. MRI confirms presence of recurrence, no nodes noted. Pt is referred to me discuss possible radiationtherapy to treat recurrence for cure. Pain Score (from Vitals) 07/06/2018 Initial score - Final score 0 Past Medical History: Diagnosis Date ??? High cholesterol ??? HTN (hypertension) ??? Obesity ??? Sleep apnea No past surgical history on file. Current Outpatient Medications: acetaminophen (TYLENOL) 500 mg tablet cholecalciferol, Vitamin D3, 1,000 unit tablet cyanocobalamin (VITAMIN B-12) 500 mcg tablet docusate sodium (COLACE) 100 mg capsule fexofenadine (RADHA) 60 mg tablet fluocinonide (LIDEX) 0.05 % cream fluticasone (FLONASE) 50 mcg/actuation nasal spray folic acid (FOLVITE) 400 mcg tablet hydroCHLOROthiazide (HYDRODIURIL) 25 mg tablet hydrocortisone 0.5 % cream Lactobacillus acidophilus (PROBIOTIC) 10 billion cell capsule levothyroxine (SYNTHROID) 25 mcg tablet lisinopril (PRINIVIL, ZESTRIL) 10 mg tablet Magnesium 250 mg tablet Methylcellulose, Laxative, 500 mg tablet mupirocin (BACTROBAN) 2 % ointment nystatin-triamcinolone (MYCOLOG II) cream oxymetazoline HCl (NASAL SPRAY 12 HOUR NASAL) polyethylene glycol 3350 (MIRALAX ORAL) Potassium Gluconate 595 mg (99 mg) tablet psyllium, 5.8 G, (METAMUCIL) packet selenium 100 mcg tablet Selenium 200 mcg tablet simvastatin (ZOCOR) 20 [...] file Gets together: Not on file Attends yarsanism service: Not on file Active member of [...] Social History Narrative ??? 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 Review of Systems Reviewed in detail on our intake sheet today. She has no pertinent positives on extensive review of systems other than as described above. Imaging: MRI 07/03/18 Impression: 1. ??Bilobed 2 x 1 cm V shaped mass in the remnant vaginal apex without evidence of direct invasion of the surrounding tissues. No pelvic lymphadenopathy. 2. ??Status post total abdominal hysterectomy and bilateral salpingo-oophorectomy. I have personally reviewed the images and the above interpretation and agree with the findings. Secondary Read CT Ab/Pelvis 06/24/18 Impression: 1. ??Bilobed 2 x 1 cm V shaped mass in the remnant vaginal apex without evidence of direct invasion of the surrounding tissues. No pelvic lymphadenopathy. 2. ??Status post total abdominal hysterectomy and bilateral salpingo-oophorectomy. I have personally reviewed the images and the above interpretation and agree with the findings. CT Chest 06/24/18 Impression: 1. ??No metastatic lesions in the chest. 2. ??Mild subpleural, basilar interstitial lung disease. 3. ??Focal region of scarring or atelectasis in the posterior basal segment of the left lower lobe. Pathology: 2/26/19 Vagina mass, biopsy: - ??Recurrent endometrial adenocarcinoma, endometrioid type, FIGO grade 1 Final Pathologic Diagnosis: A. LYMPH NODES, HYPOGASTRIC SENTINEL, LEFT, EXCISION: - One lymph nodes negative for malignancy (0/1). B. LYMPH NODES, HYPOGASTRIC SENTINEL, RIGHT, EXCISION: - One lymph nodes negative for malignancy (0/1). C. UTERUS, CERVIX, FALLOPIAN TUBES, AND OVARIES, AND PORTION OF POSSIBLE MECKEL'S DIVERTICULUM, HYSTERECTOMY AND BILATERAL SALPINGO-OOPHERECTOMY: - ??Endometrium: ?- ??Endometrial adenocarcinoma, endometrioid type, FIGO grade I, confined to the endometrium and involving adenomyosis (AJCC: pT1a [FIGO IA], pN0). ??See synoptic report and comment. ?- ??Adjacent endometrium shows atypical complex hyperplasia. - ??Myometrium: ?- ??Leiomyomata (1.6 cm maximal dimension). ?- ??Adenomyosis. - ??Cervix: ?- ??Endocervical polyps. - ??Serosa: - ??Adhesed portion of myoid tissue most consistent with ligamentous tissue. - ??Features of Meckel's diverticulum not identified. ?- ??Focal subserosal adenomyosis. - ??Fallopian tube, right: ?- ??Tubo-ovarian adhesions. ?- ??Status post ligation. - ??Fallopian tube, left: ?- ??Focal serosal/subserosal endometriosis showing atypical complex hyperplasia. ?- ??Status post ligation. - ??Ovaries: ?- ??Focal adhesions. SYNOPTIC REPORT STAGE (pTNM) ?PRIMARY TUMOR (pT): ?? pT1a CATEGORY (pN): ?? pN0 SPECIMEN: ?? Uterine corpus, Cervix, Right ovary, Left ovary, Right fallopian tube, Left fallopian tube PROCEDURE: ?? Simple hysterectomy ADDITIONAL PROCEDURES: ?? Bilateral salpingo-oophorectomy SPECIMEN INTEGRITY: ?? Intact hysterectomy specimen LYMPH NODE SAMPLING: ?? Performed ??Hypogastric sentinel lymph nodes HISTOLOGIC TYPE: ?? Endometrioid adenocarcinoma HISTOLOGIC GRADE: ?? FIGO grade 1 MYOMETRIAL INVASION: ?? Absent TUMOR INVOLVEMENT OF CERVIX: ?? Not involved EXTENT OF INVOLVEMENT OF OTHER ORGANS: ?? Right ovary - Not involved Left ovary - Not involved Right fallopian tube - Not involved Left fallopian tube - Not involved PERITONEAL ASCITIC FLUID: ?? Negative for malignancy (normal / benign) LYMPH-VASCULAR INVASION: ?? Not definitively identified REGIONAL LYMPH NODES: ?? Hypogastric NUMBER OF PELVIC LYMPH NODES EXAMINED: ?? 2 LYMPH NODE INVOLVEMENT: ?? 0 FIGO STAGE ?FIGO STAGE: ?? IA Exam: Vitals: 07/06/18 1503 BP: (!) 152/70 Pulse: 101 Temp: 37.5 ??C (99.5 ??F) SpO2: 96% Weight: 99.2 kg (218 lb 12.8 oz) Height: 152 cm (59.84) Deferred, will perform SALOONKEEPER exam at time of simulation. G8- Geriatric Screening Tool 1) Has food intake declined over the past 3 months due to loss of appetite, digestive problems, chewing or swallowing difficulties? Answer: 2 0 : severe decrease in food intake 1 : moderate decrease in food intake 2 : no decrease in food intake 2) Weight loss during the last 3 months Answer: 3- 15 lb weight loss, intentional, cut out bread. 0 : weight loss > 3 kg (6.6 lbs) 1 : does not know 2 : weight loss between 1 and 3 kgs (2.2 to 6.6 lbs) 3 : no weight loss 3) Mobility Answer: 2 0 : bed or chair bound 1 : able to get out of bed/chair but does not go out 2 : goes out 4) Neuropsychological problems Answer: 2 0 : severe dementia or depression 1: Mild dementia or depression 2: No psychological problems 5) Body Mass Index (BMI (weight in kg) / (height in m??) Answer: 3 0 : BMI < 19 1 : BMI = 19 to BMI < 21 2 : BMI = 21 to BMI < 23 3 : BMI = 23 and > 23 6)Takes more than 3 medications per day Answer: 0 0 : yes 1: no 7) In comparison with other people of the same age, how does the patient consider his/her health status? Answer: 2 0 : not as good 0.5 : does not know 1 : as good 2 : better 8) Age Answer: 2 0 : >85 1 : 80-85 2 : <80 TOTAL SCORE 16 0 ??? 17 Scoring: Abnormal if < or = 14 Impression: Pt with recurrent endometrial cancer at the vaginal cuff not a surgical candidate. Plan: Plan radiation to the vaginal cuff. I described course of 5-6 weeks of treatment, I would like to treat to 54 Gy to gross disease. Short and termite renewal inspector side effects were discussed with patient and her . She would like to proceed with treatment. Appointment for simulation was made for her. I spent a total of 30 minutes in face to face time with this patient today and 30 minutes of that time was spent in counseling and coordination of care as described in the progress note. Lillian Rivas MD Radiation Oncology Pager [phone] Office [phone] documented in this encounter Plan of Treatment Upcoming Encounters Date Type Specialty Care Team Description 03/28/2022 Office Visit Gynecologic Oncology Kush Liz PA-C [address] [facility], [address] 4 [place], [place] [address] (Wo rk) documented as of this encounter Visit Diagnoses Diagnosis Endometrial cancer ([facility]) ([facility]) - [facility] Malignant neoplasm of corpus uteri, exce pt isthmus documented in this encounter Historical Medications This list may reflect changes made after this encounter. Medication Sig Dispensed Refills Start Date End Date fluocinonide (LIDEX) 0.05 Apply topically 2 0 % cream times daily. polyethylene glycol 3350 Take by mouth. 0 (MIRALAX ORAL) added in this encounter Care Teams Kennel Technician Relationship Specialty Start Date End Date Eve Londono MD PCP - General 04/18/17 [address] [place] [address] documented as of this encounter
--- OUTSIDE RECORDS SUMMARY | 2022-01-25 01:49 | XMS_ITS | Encounter Summary ---
:1945 Author Organization [facility] Address [address] [place] [address] Care Team Providers Name Role Phone Eve Londono MD Primary Care Provider Encounter Details Date Type Department Care Team Description 05/26/2019 Orders Only [facility] Gynecologic Steve Flood RN Oncology - [facility] [address] [place] [address] Social History Tobacco Use Types [...] documented as of this encounter Progress Notes Aydin Flood, ASHLEE - 05/26/2019 1138 EST External creatinine labs entered in [facility]ISM. Originals sent to HIM. AYDIN FLOOD RN 05/26/2019 11:42 documented in this encounter Plan of Treatment Upcoming Encounters Date Type Specialty Care Team Description 03/28/2022 Office Visit Gynecologic Oncology Kush Liz PA-C [address] [place], [address] [place], [place] [phone] (Wo rk) documented as of this encounter Procedures Procedure Name Priority Date/Time Associated Diagnosis Comme nts CREATININE Routine 05/20/2019 Results for thi s procedure are in the resu lts section. documented in this encounter Results CREATININE (05/20/2019) Pathologist Sig nature Creatinine, External 0.69 0.55 - 1.02 [facility] mg/dL [facility] GFR, Calculated, >=60.0 mL/min/1.73m2 [facility] Specimen Blood - Venous blood (substance) Performing Organization Address City/State/ZIP Code Phon e Number [facility] documented in this encounter Visit Diagnoses Not on filedocumented in this encounter Care Teams Marketing Segment Manager Relationship Specialty Start Date End Date Eve Londono MD PCP - General 04/18/17 [address] [place] [address] documented as of this encounter
--- OUTSIDE RECORDS SUMMARY | 2022-01-25 01:49 | XMS_ITS | Encounter Summary ---
:1945 Author Organization [facility] Address [address] [place] [address] Care Team Providers Name Role Phone Eve Londono MD Primary Care Provider Reason for Visit Reason Onset Date Comments Appointment Related 01/07/2019 Encounter Details Date Type Department Care Team Description 01/07/2019 Telephone [facility] Radha Casillas, Josiane ointment Related Women's Services - [facility] [address] [place], [place] [phone] Social History Tobacco Use Types Packs/Day Years [...] encounter Miscellaneous Notes Telephone Encounter - Karen Culver, RN - 01/07/2019 1524 EDT 1525- spoke with Radiology dept and they state that as long as pt is well hydrated (One glass per/hrleading up to appt) it doesn't matter if she empties her bladder prior to the CT scan or not. LVM for pt stating this is a nurse calling from [place] Liz's office, I spoke w/ radiology dept and they state it is fine for you to have an empty or full bladder prior to your CT scan, they don't have a preference about that. They do however want you to be well hydrated leading up to it (ie: drinking a glass of water/hr in the morning leading up to the appt time). Feel free to call w/ any questions to [phone]. elephone Encounter - Radha Casillas RN - 01/07/2019 1037 EDT Roseann LVM: Vesta Liz & Dr. Rivas (radiation MD) want her to have a CAT scan , scheduled for 02/04, needs to know if she should have a full or empty bladder. documented in this encounter Plan of Treatment Upcoming Encounters Date Type Specialty Care Team Description 03/28/2022 Office Visit Gynecologic Oncology Kush Liz PA-C [address] [facility] venue [facility], [facility], Level 4 [place], [place] [address] (Wo rk) documented as of this encounter Visit Diagnoses Not on filedocumented in this encounter Care Teams Industrial Relations Director Relationship Specialty Start Date End Date Eve Londono MD PCP - General 04/18/17 [address] [place] [address] documented as of this encounter
--- OUTSIDE RECORDS SUMMARY | 2022-01-25 01:49 | XMS_ITS | Encounter Summary ---
:1945 Author Organization [facility] Address [address] [place] [address] Care Team Providers Name Role Phone Eve Londono MD Primary Care Provider Encounter Details Date Type Department Care Team Description 06/24/2018 Hospital Encounter [facility] - [facility] M Banegas MD [address] [address] Pavilion, [place] [phone] (Wo rk) Social History Tobacco Use Types [...] as of this encounter Discharge Diagnoses Diagnosis D49.9 Neoplasm of unspecified behavior o f unspecified site-D49.9[ICD-10-CM] C54.1 Malignant neoplasm of endometrium- C54.1[ICD-10-CM] J84.9 Interstitial pulmonary disease, un specified-J84.9[ICD-10-CM] documented in this encounter Medications at Time [...] Visit Gynecologic Oncology Kush Liz PA-C [address] [place] [facility], [facility], [facility] 4 [place], [place] [address] (Wo rk) documented as of this encounter Procedures Procedure Name Priority Date/Time Associated Comments Diagnosis COMPREHENSIVE Routine 06/24/2018 11:09 Results fo r this METABOLIC PANEL (CMP) EST proced ure are in the results section. documented in this encounter Results (ABNORMAL) COMPREHENSIVE METABOLIC PANEL (CMP) (06/24/2018 11:09 EST) Potassium 4.4 3.5 - 5.0 [facility] mEq/[facility] Sodium 141 136 - 145 [facility] Chloride 99 96 - 110 [facility] CO2 29 22 - 32 mEq/L [facility] Total Alkaline 47 38 - 126 U/L [facility] Phosphatase [facility] Bilirubin, Total <0.5 <1.4 mg/dl [facility] AST 22 15 - 46 U/L [facility] ALT 39 <53 U/L [facility] Albumin 5.0 (H) 3.4 - 4.9 [facility] g/dl [facility] Total Protein 7.2 6.3 - 8.2 [facility] g/dl [facility] Creatinine 0.67 0.52 - 1.[address] [facility] mg/dl [facility] GFR, Calculated 88 >[address] [facility] Comment: ml/min/1.73m2 [facility] eGFR calculated using CKD-EPI equation for SERVICES non Americans. Multiply eGFR by 1.16 for Americans. BUN 15 10 - 26 mg/dl [facility] Calcium 10.6 (H) 8.5 - 10.[address] [facility] mg/dl [facility] Calculated Calcium 9.8 8.5 - 10.[address] [facility]ICAL mg/dl [facility] Glucose, Serum 93 70 - [address] [facility] mg/dl [facility] Fasting? No [facility] Specimen Blood Performing Organization Address City/State/ZIP Code Phon e Number [facility] [address] [place] [address] SERVICES documented in this encounter Visit Diagnoses Not on filedocumented in this encounter Care Teams Livestock Exhibitor Relationship Specialty Start Date End Date Eve Londono MD PCP - General 04/18/17 [address] [place], [place] [phone] documented as of this encounter
--- OUTSIDE RECORDS SUMMARY | 2022-01-25 01:49 | XMS_ITS | Encounter Summary ---
:1945 Author Organization [facility] Address [address] [place] [address] Care Team Providers Name Role Phone Eve Londono MD Primary Care Provider Reason for Visit Reason Comments Cancer Encounter Details Date Type Department Care Team Description 08/05/2018 Radiation Therapy [facility] Lillian Rivas, Endometrial cancer Visit Radiation Oncology MD ([facility]) (Primary - Main [address]) [address] [facility], [address] [place] [address] [address] 2 [place] [address] Social History Tobacco Use Types [...] of this encounter Progress Notes Lillian Rivas MD, MD - 08/05/2018 0735 EDT On Treatment Visit Assessment: Roseann Wilcox is currently receiving radiation therapy treatment and is being seen today for her weekly on treatment visit. The encounter diagnosis was Endometrial cancer (HCC-CMS). Assessment: Dr. Rivas, 08/05/18 Radiation Therapy: Cumulative RT Dose 900 cGy Daily RT Dose 180 cGy Total RT Planned Dose 4500 plus boost cGy Chemotherapy Agent none Subjective Note: pt feeling well, getting used to treatment. No diarrhea, no dysuria. Energy ok. 0/10 pain. Physical Exam: deferred Treatment Related Toxicity: none Weekly Review: Medications and port films reviewed. Impression: Pt tolerating treatment as expected. Plan: Continue radiation therapy as planned. Lillian Rivas MD Radiation Oncology Pager [phone] Office [phone] documented in this encounter Plan of Treatment Upcoming Encounters Date Type Specialty Care Team Description 03/28/2022 Office Visit Gynecologic Oncology Kush Liz PA-C [address] [place] [address], [facility], [facility] 4 [place], [place] [phone] (Wo rk) documented as of this encounter Visit Diagnoses Diagnosis Endometrial cancer (HCC-[facility]) ([facility]) - Sonia reggie Malignant neoplasm of corpus uteri, exce pt isthmus documented in this encounter Care Teams Business Loan Processor Relationship Specialty Start Date End Date Eve Londono MD PCP - General 04/18/17 [address] [place] [address] documented as of this encounter
--- OUTSIDE RECORDS SUMMARY | 2022-01-25 01:49 | XMS_ITS | Encounter Summary ---
:1945 Author Organization [facility] Address [address] [place] [address] Care Team Providers Name Role Phone Eve Londono MD Primary Care Provider Encounter Details Date Type Department Care Team Description 01/28/2019 Hospital Encounter [facility] - Micah Liz [facility] HUMAIRA Zeng 111 [facility] [address] [place], [place] [phone] [place] [address] Pavilion, Level 4 [place] [phone] (Wo rk) Social History Tobacco Use Types [...] bedtime. until 2 weeks post radiation therapy lisinopril (PRINIVIL, Take 20 mg by 0 [...] Code Departure Means Destination Home or Self Mcfp documented in this encounter Plan of Treatment Upcoming Encounters Date Type Specialty Care Team Description 03/28/2022 Office Visit Gynecologic Oncology Kush Liz PA-C 111 [facility], [facility] 4 [place], [place] [address] (Wo rk) documented as of this encounter Visit Diagnoses Not on filedocumented in this encounter Care Teams Manufacturing Maintenance Mechanic Relationship Specialty Start Date End Date Eve Londono MD PCP - General 04/18/17 [address] [place] [address] documented as of this encounter
--- OUTSIDE RECORDS SUMMARY | 2022-01-25 01:49 | XMS_ITS | Encounter Summary ---
:1945 Author Organization [facility] Address [address] [place] [address] Care Team Providers Name Role Phone Eve Londono MD Primary Care Provider Reason for Visit Reason Comments Cancer Encounter Details Date Type Department Care Team Description 09/09/2018 Radiation Therapy [facility] Lillian Rivas, Endometrial cancer Visit Radiation Oncology MD ([facility]) (Primary - Main [address]) [address] [facility], [address] [place] [address] [address] [place] [address] Social History Tobacco Use Types [...] Progress Notes Lillian Rivas MD, MD - 09/09/2018 1019 EDT On Treatment Visit Assessment: Roseann Wilcox is currently receiving radiation therapy treatment and is being seen today for her weekly on treatment visit. The encounter diagnosis was Endometrial cancer (HCC-CMS). Assessment: Dr. Rivas, 09/09/18 Radiation Therapy: Cumulative RT Dose 4500 plus boost to 5400 cGy cGy Daily RT Dose 180 cGy Total RT Planned Dose 5400 plus boost cGy Chemotherapy Agent none Subjective Note: pt feeling well. If eats lightly no constipation. Uses Mirilax as well. No diarrhea. Has anal fissure, has ointment for it, helping. She has minimal dysuria right after treatment, better after drinking water. 0/10 pain. . Physical Exam: deferred Treatment Related Toxicity: grade 1 dysuria Weekly Review: Medications and port films reviewed. Impression: Pt tolerating treatment better than expected. Plan: Radiation is complete, plan f/u on 11/04 with Crissy Liz in janitorial assistant. Pt will call sooner if problems. Pt given vag dilator at end of tx today. Lillian Rivas MD Radiation Oncology Pager [phone] Office [phone] documented in this encounter Plan of Treatment Upcoming Encounters Date Type Specialty Care Team Description 03/28/2022 Office Visit Gynecologic Oncology Kush Liz PA-C [address] [place] [address] venue [facility], [facility], Level [address] [place], [place] [phone] (Wo rk) documented as of this encounter Visit Diagnoses Diagnosis Endometrial cancer (HCC-CMS) (HCC) - [facility] Malignant neoplasm of corpus uteri, exce pt isthmus documented in this encounter Care Teams Disabilities Services Officer Relationship Specialty Start Date End Date Eve Londono MD PCP - General 12/29/17 [address] [place] [address] documented as of this encounter
--- OUTSIDE RECORDS SUMMARY | 2022-01-25 01:49 | XMS_ITS | Encounter Summary ---
:1945 Author Organization [facility] Address [address] [place] [address] Care Team Providers Name Role Phone Eve Londono MD Primary Care Provider Encounter Details Date Type Department Care Team Description 08/19/2018 Hospital Encounter [facility] Aldo Dewitt MD PhD Radiation Oncology - [address] [place] [address], [address] [place], [place] [id number] [place] [address] [phone] (Wo rk) Social History Tobacco Use [...] Packet by 0 11/04/2018 packet mouth daily. documented as of this encounter Discharge Disposition Disposition Code Departure Means Destination Home or Self [facility] documented in this encounter Plan of Treatment Upcoming Encounters Date Type Specialty Care Team Description 03/28/2022 Office Visit Gynecologic Oncology Kush Liz PA-C [address] [facility], [facility], [facility] [address] [place], [place] [address] (Wo rk) documented as of this encounter Visit Diagnoses Not on filedocumented in this encounter Care Teams Offset Plate Preparation Supervisor Relationship Specialty Start Date End Date Eve Londono MD PCP - General 04/18/17 [address] [place] [address] documented as of this encounter
--- OUTSIDE RECORDS SUMMARY | 2022-01-25 01:49 | XMS_ITS | Encounter Summary ---
:1945 Author Organization [facility] Address [address] [place] [id number] Care Team Providers Name Role Phone Eve Londono MD Primary Care Provider Reason for Visit Reason Comments Cancer Endometrial Encounter Details Date Type Department Care Team Description 08/12/2018 Radiation Therapy [facility] Debby Dewitt MD Endometrial cancer Visit Radiation Oncology PhD ([facility]) (Primary - Main [address]) [address] [facility], [address] [place] [address] [address] [place] [address] Social History Tobacco Use Types [...] documented as of this encounter Progress Notes Debby Dewitt MD, MD - 08/12/2018 1142 EDT On Treatment Visit Assessment: Roseann Wilcox is currently receiving radiation therapy treatment and is being seen today for her weekly on treatment visit. The encounter diagnosis was Endometrial cancer (HCC-CMS). Assessment: Assessment Completed By: Debby Dewitt MD (08/12/18 3550) Radiation Therapy: Cumulative RT Dose 1800 cGy Daily RT Dose 180 cGy Total RT Planned Dose 4500 cGy Chemotherapy Agent None Subjective Note: General: Fatigue Pain: pelvis Numeric Pain Level (Scale 1-10): 0 Physical Exam: General Appearance: Appears comfortable, no acute distress Skin Reaction: none Treatment Related Toxicity: Fatigue: 1-Fatigue relieved by rest Pain: 0-None Dermatitis: 0-None Anorexia: 0-None Abdominal Pain: 0-None Nausea: 0-None Vomitin-None Diarrhea: 0-None Constipation: 0-None Proctitis: 0-None Bladder Spasm: 0-None Cystitis: 0-None Incontinence: 0-None Urinary Frequency: 0-None Urinary Retention: 0-None Weekly Review: Radiation Set-up Imaging Reviewed: Yes Impression: Performance Status: 0-Fully active, able to carry on all pre-disease performance without restriction Disease State: No evidence of disease Treatment Break/Deviation: No Plan: Plan: Continue per plan documented in this encounter Plan of Treatment Upcoming Encounters Date Type Specialty Care Team Description 03/28/2022 Office Visit Gynecologic Oncology Kush Liz PA-C [address] [facility], [facility], [facility] [address] [place], [place] [phone] (Wo rk) documented as of this encounter Visit Diagnoses Diagnosis Endometrial cancer (HCC-CMS) ([facility]) - [facility] Malignant neoplasm of corpus uteri, exce pt isthmus documented in this encounter Care Teams Forklift Operator Relationship Specialty Start Date End Date Eve Londono MD PCP - General 04/18/17 [address] [place] [address] documented as of this encounter
--- OUTSIDE RECORDS SUMMARY | 2022-01-25 01:49 | XMS_ITS | Encounter Summary ---
:1945 Author Organization [facility] Address [address] [place] [address] Care Team Providers Name Role Phone Eve Londono MD Primary Care Provider Reason for Visit Reason Onset Date Comments Other 01/27/2019 Encounter Details Date Type Department Care Team Description 01/27/2019 Telephone [facility] Jeniffer Weeks RN Other Services - [facility] [address] [place] [address] Social History Tobacco Use Types [...] Telephone Encounter - Jeniffer Thompson RN - 01/27/2019 1217 EDT Call to patient. I spoke to patient. Patient aware that order for creatinine is placed. Telephone Encounter - Jeniffer Thompson RN - 01/27/2019 1058 EDT Patient call from patient. Patient left message that she needs an order for creatinine as she has upcoming CAT scan on February 04. documented in this encounter Plan of Treatment Upcoming Encounters Date Type Specialty Care Team Description 03/28/2022 Office Visit Gynecologic Oncology Kush Liz PA-C 111 [facility], [facility], [address] [place], [place] [phone] (Wo rk) documented as of this encounter Visit Diagnoses Not on filedocumented in this encounter Care Teams Button Cutting Machine Operator Relationship Specialty Start Date End Date Eve Londono MD PCP - General 04/18/17 [address] [place] [address] documented as of this encounter
--- OUTSIDE RECORDS SUMMARY | 2022-01-25 01:49 | XMS_ITS | Encounter Summary ---
:1945 Author Organization [facility] Address [address] [place] [address] Care Team Providers Name Role Phone Eve Londono MD Primary Care Provider Reason for Referral Radiology Services (Routine) - Specialty Report Received Specialty Diagnoses / Procedures Referred By Contact Refer red To Contact Diagnoses History of endometrial cancer Vesta Liz PA-C Procedures CT ABDOMEN, PELVIS W CONTRAST [address] [phone] Referral ID Status Reason Start Date Expiration Date Visits V isits Requested Authorized [id number] Specialty 11/04/2018 1 1 Report Received Reason for Visit Reason Comments Follow-up Encounter Details Date Type Department Care Team Description 11/04/2018 Office Visit [facility] Vesta Liz ry of Women's Services - HUMAIRA Zeng endometrial cancer Main [address] (Primary Dx) [address] [place] [address] [facility] [phone] [address] (Wo rk) Social History Tobacco Use Types Packs/Day Years Used Date Former Smoker Smokeless Tobacco: Never Used Alcohol Use Standard Drinks/Week Comments No 0 (1 standard drink = 0.6 oz pure alcoho l) Sex Assigned at Date Recorded Female 09/25/2021 8:41 EDT documented as of this encounter Last Filed Vital Signs Vital Sign Reading Time Taken Comments Blood Pressure 118/70 11/04/2018 1323 EDT Pulse - - Temperature - - Respiratory Rate - - Oxygen Saturation - - Inhaled Oxygen Concentration - - Weight 95.8 kg (211 lb 3.2 oz) 11/04/2018 1323 EDT Height 152 cm (4' 11.84) 11/04/2018 1323 EDT Body Mass Index 41.46 11/04/2018 1323 EDT documented in this encounter Functional Status [...] as of this encounter Discharge Diagnoses Diagnosis Z08 Encntr for follow-up exam after trtm t for malignant neoplasm-Z08[ICD-10-CM] Z85.42 Personal history of malignant chava plasm of other parts of uterus-Z85.42[ICD-10-CM] documented in this encounter Discharge Disposition Disposition Code Departure Means Destination Auto Discharge documented in this encounter Progress Notes Vesta Liriano PA - 11/04/2018 1330 EDT Subjective: Patient ID: Roseann Wilcox is an 73 y.o. female. Chief Complaint Patient presents with ??? Follow-up HPI Roseann Wilcox is a 72 y.o. woman who on 07/15/2016 underwent a da Freddie-assisted total laparoscopic hysterectomy, bilateral salpingo-oophorectomy, and bilateral sentinel hypogastric lymph node biopsiesbecause of a preoperative diagnosis of endometrial carcinoma. ??Of note, at the time of her surgery she also underwent a laparoscopic Meckel's diverticulectomy because tubular structure was noted to beadherent from the ileocecal region to the right aspect of her uterus. Final pathology report demonstrated a stage IA, grade 1 endometrial adenocarcinoma, there was no evidence of lymphovascular space involvement. She did not receive adjuvant therapy. On 08/14/2018, Roseann presented to our office with a complaint of vaginal bleeding. On exam she had aexophytic mass at her vaginal cuff which was biopsied and returned positive for recurrent endometrial cancer. Imaging was negative for any evidence of metastatic disease. She was reviewed at our multidi sciplinary tumor board, and decision made to refer to Dr. Rivas to receive radiation therapy. She was treated between July 31 and September 09, 2018 with a goal of curative intent, she received 45 Gy in 25 fractions to the low pelvis followed by boost to the recurrent disease of 9 Gy in 5 fractions. She returns today for follow-up and surveillance. Today she states that overall tolerated her radiation therapy well. She did experience some constipation, which she managed with fiber and MiraLAX, she also continues to make sure to drink plenty of fluids and overall is doing well. She does note some increased urinary urgency but no dysuria or significant frequency. Just notes that when she has to go she has to go. She denies any vaginal bleeding, further denies any fevers, chills, chest pain, shortness of breath,nausea, vomiting, abdominal or pelvic pain, or pain or swelling in her lower extremities. Patient Active Problem List Diagnosis ??? Endometrial cancer ([facility]) Past Medical History: Diagnosis Date ??? Cancer ([facility]) ??? High cholesterol ??? HTN (hypertension) ??? [...] cholecalciferol, Vitamin D3, 1,000 unit tablet Take 1,000 Units by mouth every 48 hours. ??? cyanocobalamin (VITAMIN B-12) 500 mcg tablet [...] Take 25 mcg by mouth daily. ??? lisinopril (PRINIVIL, ZESTRIL) 10 mg tablet Take 20 mg by mouth at bedtime. ??? Magnesium 250 mg tablet Take 1 [...] Gastrointestinal: Negative. Endocrine: Negative. Genitourinary: Positive for urgency. Musculoskeletal: Negative. Skin: Negative. Allergic/Immunologic: Negative. Neurological: Negative. Hematological: Negative. Psychiatric/Behavioral: Negative. - See HPI Objective: BP 118/70 (BP Cuff Sizes: Adult, large) Ht 152 cm (59.84) Wt 95.8 kg (211 lb 3.2 oz) BMI 41.46 kg/m?? Physical Exam Constitutional: She is oriented [...] has no wheezes. She has no rales. Right breast exhibits no inverted nipple, no mass, no nipple discharge, no skin change and no tenderness. Left breast exhibits no inverted nipple, no mass, no nipple discharge, no skin change and no tenderness. Breasts are symmetrical. There is no breast swelling. Breast bleeding isabsent. Abdominal: Soft. Bowel sounds are normal. She exhibits no distension. There is no tenderness. There is no rebound. Genitourinary: There is no rash, tenderness, lesion or injury on the right labia. There is no rash, tenderness, lesion or injury on the left labia. No vaginal erythema, tenderness or bleeding. No signsof injury around the vagina. No vaginal discharge found. The previously noted large exophytic mass at her vaginal cuff has resolved. And the more inferior aspect of her cuff, there is a slightly raised lesion that is for the most part of the same color and surface as her surrounding vaginal mucosa, though a bit more pale. This may represent scar tissue or remnant from her previously treated tumor. Musculoskeletal: Normal range of motion. Lymphadenopathy: She has no cervical adenopathy. She has no axillary adenopathy. Neurological: She is alert and oriented to person, place, and time. Skin: Skin is warm and dry. No erythema. No pallor. Psychiatric: She has a normal mood and affect. Her behavior is normal. Judgment and thought content normal. Assessment: Status post pelvic radiation for a vaginal cuff recurrence of grade 1 endometrial adenocarcinoma. P Plan: Roseann was seen today for follow-up. Diagnoses and all orders for this visit: History of endometrial cancer - CT ABDOMEN, PELVIS W CONTRAST As above, Roseann has now completed radiation therapy for her vaginal cuff recurrence of her initial cancer. On her exam, there is been significant and near resolution of the previously noted lesion, Dr. Rivas was available to examine her along with me today, we concurred that it appears that she may still have some residual scar tissue, as she is approximately 2 months out from treatment we would optto continue to monitor this closely and we will see her back in 3 months time for repeat exam. We will also obtain a CAT scan of the abdomen and pelvis at that time as well. We will schedule this for her and arrange for same-day appointment. She knows that she should call us in the meantime should shehave any vaginal bleeding, or also she should have any new or different abdominal pain, pressure, bloating, and significant change in her bowel bladder habits. Regards her constipation, we encouraged her to continue to drink adequate amount of fluids and use fiber supplements and/or MiraLAX as needed, though overall she is doing well. In regards to her urinary urgency, this may also be a result of increasing her fluids but discussed the ideas of timed voids as well as Keagle's. We discussed that if she is not having improvement we can also consider pelvic floor physical therapy at home her with that consider anticholinergic medication. SUJEY Worrell documented in this encounter Plan of Treatment Upcoming Encounters Date Type Specialty Care Team Description 03/28/2022 Office Visit Gynecologic Oncology Kush Liz PA-C [address] [place] [address] [facility], [facility], [address] [place], [place] [address] (Wo rk) documented as of this encounter Procedures Procedure Name Priority Date/Time Associated Diagnosis Comme nts CT ABDOMEN, PELVIS Routine 02/04/2019 9:13 EDT History of Re sults for this W CONTRAST endometrial cancer procedure are in the results section. documented in this encounter Results CT ABDOMEN, PELVIS W CONTRAST (02/04/2019 9:13 EDT) Anatomical Region Laterality Modality Other Specimen Narrative [facility] - 02/04/2019 13:[address] ABDOMEN, PELVIS W CONTRAST ??02/04/2019 9:13 AM Signs and Symptoms/Comments: ?? Z85.42-Personal history of malignant chava plasm of other parts of [id number]; History of endometrial ca ncer, vaginal recurrence now s/p radiation therapy.l CT scan exam 07/15/2018, MR pelvis 019, CT abdomen pelvis 07/11/2016 Findings: Lower chest: Bibasilar atelectasis in th e lung bases, right greater than left and increased from prior. Hepatobiliary: The hepatic parenchyma en hances normally and there are no focal hepatic lesions. The gallbl adder is normal with no intrahepatic or extrahepatic biliary padmini lorri dilatation. Spleen, pancreas, adrenal glands: The sp huber, adrenal glands, and pancreas are without significant finding . A subcentimeter cyst along the medial superior margin of the spleen , axial 43, was present on prior. Kidneys, ureters, bladder: The kidneys e nhance symmetrically. Bilateral subcentimeter hypodensities ar e too small to characterize on CT, but likely reflect renal cysts. N o nephrolithiasis or hydronephrosis. The ureters are normal. There is trace stranding around the bladder is likely related to prior radiation. No other bladder abnormalities. Uterus, ovaries: The patient is status p ost hysterectomy. No adnexal masses. Tethering of the bladder to the vaginal cuff is likely related to prior radiation. No visible m asses. Bowel: No small or large bowel inflammat ion or obstruction. The sigmoid colon is redundant. Peritoneal cavity / Subperitoneal space: No free intraperitoneal air. No omental or peritoneal nodules. P resacral edema, perirectal and pericystic stranding, likely related to prior radiation therapy. No organized fluid collections or signif icant free fluid. Lymphovascular: No lymphadenopathy. Athe rosclerotic calcifications of the abdominal aorta and its branches with no aneurysmal dilation. Abdominal wall: No bowel-containing radha ias. Musculoskeletal: No suspicious osseous l esions or fractures. Multilevel degenerative changes of the l umbar spine. Chinese Teacher: No additional findings. Impression: 1. No metastatic disease or lymphadenopa thy abdomen pelvis post total abdominal hysterectomy with bilate ral salpingo-oophorectomy. 2. Postsurgical and postradiation change s in the deep pelvis. 3. Atherosclerosis. I have personally reviewed the images an d the above interpretation and agree with the findings. Procedure Note Corbin Donovan MD, MD - 02/04/2019 CT ABDOMEN, PELVIS W CONTRAST 02/04/2019 9:13 AM Signs and Symptoms/Comments: Z85.42-Personal history of malignant chava plasm of other parts of [id number]-PJE-36; History of endometrial ca ncer, vaginal recurrence now s/p radiation therapy.l CT scan exam 07/15/2018, MR pelvis 019, CT abdomen pelvis 07/11/2016 Findings: Lower chest: Bibasilar atelectasis in th e lung bases, right greater than left and increased from prior. Hepatobiliary: The hepatic parenchyma en hances normally and there are no focal hepatic lesions. The gallbl adder is normal with no intrahepatic or extrahepatic biliary padmini lorri dilatation. Spleen, pancreas, adrenal glands: The sp huber, adrenal glands, and pancreas are without significant finding . A subcentimeter cyst along the medial superior margin of the spleen , axial 43, was present on prior. Kidneys, ureters, bladder: The kidneys e nhance symmetrically. Bilateral subcentimeter hypodensities ar e too small to characterize on CT, but likely reflect renal cysts. N o nephrolithiasis or hydronephrosis. The ureters are normal. There is trace stranding around the bladder is likely related to prior radiation. No other bladder abnormalities. Uterus, ovaries: The patient is status p ost hysterectomy. No adnexal masses. Tethering of the bladder to the vaginal cuff is likely related to prior radiation. No visible m asses. Bowel: No small or large bowel inflammat ion or obstruction. The sigmoid colon is redundant. Peritoneal cavity / Subperitoneal space: No free intraperitoneal air. No omental or peritoneal nodules. P resacral edema, perirectal and pericystic stranding, likely related to prior radiation therapy. No organized fluid collections or signif icant free fluid. Lymphovascular: No lymphadenopathy. Athe rosclerotic calcifications of the abdominal aorta and its branches with no aneurysmal dilation. Abdominal wall: No bowel-containing radha ias. Musculoskeletal: No suspicious osseous l esions or fractures. Multilevel degenerative changes of the l umbar spine. Chinese Teacher: No additional findings. Impression: 1. No metastatic disease or lymphadenopa thy abdomen pelvis post total abdominal hysterectomy with bilate ral salpingo-oophorectomy. 2. Postsurgical and postradiation change s in the deep pelvis. 3. Atherosclerosis. I have personally reviewed the images an d the above interpretation and agree with the findings. Performing Organization Address City/State/ZIP Code Phon e Number [facility] documented in this encounter Visit Diagnoses Diagnosis History of endometrial cancer - Primary Personal history of malignant neoplasm o f other parts of uterus documented in this encounter Discontinued Medications Medication Sig Discontinue Reason Start Date End Date psyllium, 5.8 G, Take 1 Packet by Patient Stopped Taking 11/04/2018 (METAMUCIL) packet mouth daily. documented as of this encounter Care Teams Physician Interventional Cardiologist Relationship Specialty Start Date End Date Eve Londono MD PCP - General 04/18/17 [address] [place] [address] documented as of this encounter
--- OUTSIDE RECORDS SUMMARY | 2022-01-25 01:49 | XMS_ITS | Encounter Summary ---
:1945 Author Organization [facility] Address [address] [place] [address] Care Team Providers Name Role Phone Eve Londono MD Primary Care Provider Reason for Referral Radiology Services (Routine) - Closed Specialty Diagnoses / Procedures Referred By Contact Refer red To Contact Radiology Diagnoses Endometrial cancer ([facility]) ([facility]) Vesta Liz [facility] [address] ABDOMEN PELVIS W CONTRAST PA-C [address], Main Phone: Pavilion, [address] [place] [address] Referral ID Status Reason Start Date Expiration Date Visits Requ ested Visits Authorized [id number] Closed 06/01/2019 07/30/2019 1 1 Radiology Services (Routine) - Closed Specialty Diagnoses / Procedures Referred By Contact Refer red To Contact Radiology Diagnoses Endometrial cancer (HCC-CMS) ([facility]) Vesta Liz [facility] [address] CHEST W CONTRAST PA-C [address], Main Phone: Pavilion, [address] [place] [address] Referral ID Status Reason Start Date Expiration Date Visits Requ ested Visits Authorized [id number] Closed 06/01/2019 07/30/2019 1 1 Reason for Visit Radiology Services (Routine) - Closed Specialty Diagnoses / Procedures Referred By Contact Refer red To Contact Radiology Diagnoses Endometrial cancer ([facility]) ([facility]) Vesta Liz, [facility] [address] CHEST W CONTRAST HUMAIRA [address] [place], [place] [id number] [place] [address], [facility] Phone: Pavilion, [address] [place] [phone] Referral ID Status Reason Start Date Expiration Date Visits Requ ested Visits Authorized [id number] Closed 06/01/2019 07/30/2019 1 1 Encounter Details Date Type Department Care Team Description 06/04/2019 [address] En[address] Endometrial cancer [address] [facility] ([facility]) [place] [address] Social History Tobacco Use Types Packs/Day Years [...] Visit Gynecologic Oncology Kush Liz PA-C [address] [facility], [facility], [address] [place], [place] [address] (Wo rk) documented as of this encounter Procedures Procedure Name Priority Date/Time Associated Diagnosis Comme nts CT CHEST W CONTRAST Routine 06/04/2019 9:07 EST Endometrial ca ncer Results for this ([facility]) procedure are i n the results section. CT ABDOMEN PELVIS W Routine 06/04/2019 9:07 EST Endometrial ca ncer Results for this CONTRAST ([facility]) procedure are i n the results section. documented in this encounter Results CT ABDOMEN PELVIS W CONTRAST (06/04/2019 9:07 EST) Anatomical Region Laterality Modality Computed Tomography Specimen Narrative [facility] - 06/04/2019 12:[address] ABDOMEN PELVIS [...] lesions. Lung bases: ??[facility] performed on the same [...] Organization Address City/State/ZIP Code Phon e Number [facility] CT CHEST W CONTRAST (06/04/2019 9:07 EST) Anatomical Region Laterality Modality Chest Computed Tomography Specimen Impressions [facility] - 06/04/2019 10:05 EST 1. ??No metastatic lesions in the chest. 2. ??Stable subpleural interstitial lung disease. 3. ??Stable region of likely cicatricial atelectasis in the left lower lobe abutting the descending thoracic aorta. 4. ??Calcified plaques of the coronary a rteries and aorta. Narrative [facility] - 06/04/2019 10:[address] CHEST [...] [facility]. [facility]am description: CT of the [...] Organization Address City/State/ZIP Code Phon e Number [facility] documented in this encounter Visit Diagnoses Diagnosis Endometrial cancer (HCC-CMS) (HCC) Malignant neoplasm of corpus uteri, exce pt isthmus documented in this encounter Administered Medications Inactive Administered Medications - up to 3 most recent administrations Medication Order MAR Action Action Date Dose Rate Site iohexoL (OMNIPAQUE 350) solution 100 Given 06/04/2019 9:08 EST 9 5 mL mL 100 mL, intravenous, Once in imaging, 1 dose, Starting on Fri06/04/19 at 0907, Until Fri06/04/19 at 0908, Routine, Imaging Protocol Orders documented in this encounter Orders Medications Ordered That Might Not Have Count Last Ord ered Date First Ordered Date Been Administered iohexoL (OMNIPAQUE 350) solution 100 mL 1 06/04/19 20 documented in this encounter Care Teams Electrolog Operator Relationship Specialty Start Date End Date Eve Londono MD PCP - General 04/18/17 [address] [place] [address] documented as of this encounter
--- OUTSIDE RECORDS SUMMARY | 2022-01-25 01:49 | XMS_ITS | Encounter Summary ---
:1945 Author Organization [facility] Address [address] [place] [address] Care Team Providers Name Role Phone Eve Londono MD Primary Care Provider Reason for Referral Cardiology (Routine) - Closed Specialty Diagnoses / Procedures Referred By Contact Refer red To Contact Diagnoses Endometrial cancer ([facility]) (HCC) Neoplasm Will Jaramillo MD Procedures EKG 12-LEAD [address] [address] Referral ID Status Reason Start Date Expiration Date Visits Requ ested Visits Authorized [id number] Closed 06/24/2018 1 1 adiology Services (3 - 10 Business Days) - Closed Specialty Diagnoses / Procedures Referred By Contact Refer red To Contact Diagnoses Endometrial cancer ([facility]) (HCC) Neoplasm Will Jaramillo MD Procedures CT CHEST W CONTRAST [address] [address] Referral ID Status Reason Start Date Expiration Date Visits Requ ested Visits Authorized [id number] Closed 06/24/2018 1 1 Reason for Visit Reason Comments Follow-up Mass on vaginal cuff Encounter Details Date Type Department Care Team Description 06/24/2018 Office Visit [facility] Will Jaramillo MD Endometrial cancer ([facility]) (Primary Dx ); Gynecologic Oncology [address] [facility] [address] [place] [address] [facility] [place] [address] (Wo rk) Social History Tobacco Use Types Packs/Day Years Used Date Former Smoker Smokeless Tobacco: Never Used Alcohol Use Standard Drinks/Week Comments No 0 (1 standard drink = 0.6 oz pure alcoho l) Sex Assigned at Date Recorded Female 09/25/2021 8:41 EDT documented as of this encounter Last Filed Vital Signs Vital Sign Reading Time Taken Comments Blood Pressure 136/70 06/24/2018 0913 EST Pulse - - Temperature - - Respiratory Rate - - Oxygen Saturation - - Inhaled Oxygen Concentration - - Weight 99.8 kg (220 lb) 06/24/2018 0908 EST Height 152.4 cm (5') 06/24/2018 0908 EST Body Mass Index 42.97 06/24/2018 0908 EST documented in this encounter Functional Status [...] as of this encounter Discharge Diagnoses Diagnosis J84.9 Interstitial pulmonary disease, un specified-J84.9[ICD-10-CM] C54.1 Malignant neoplasm of endometrium- C54.1[ICD-10-CM] D49.9 Neoplasm of unspecified behavior o f unspecified site-D49.9[ICD-10-CM] documented in this encounter Patient Instructions Patient InstructionsMeaghan Schuler RN - 06/24/2018 9:30 EST Images from the original note were not included. You are scheduled to see Dr Londono on , July 09, 2018 @ 2:20PM You have a CT scan scheduled for today. Check in at registrationat 1:30 PM You are scheduled for surgery on: To be determined Preoperative Home Instructions 1. The day before your surgery, eat normally and please make sure you stay well hydrated by drinkingplenty of clear liquids. 2. After midnight-- NO solid foods or liquids containing fats, including milk 3. Clear liquids ONLY until 4 hours before the scheduled time of your procedure. Clear liquids include water, clear fruit juice (apple or cranberry) carbonated beverages, Jell-O, and black or sweetenedcoffee and tea. 4. If you take prescription medications, you will be advised by the pre op nurses which medications you may take the morning of surgery. This will occur during your pre op telephone pre-screen. You may take your medications as directed with small sips of water at any time prior to your procedure. (If a medication must be taken with something other than clear liquids or sips of water, please refer to the Preoperative Screening Clinic at for guidance.) 5. On the day of surgery, NO candy, gum or mints, etc.! 6. No jewelry! This includes wedding bands and any body piercing, or any other valuables. 7. No make-up, No fingernail greenlandic, No contact lenses. Gel nails are acceptable if they are a clear or pale color. *The following medications need to be discontinued at least 7 days prior to surgery* (Please notify the physician if you are taking any of the following medications). IBUPROFEN, ADVIL, ALEVE, MOTRIN, MULTIVITAMINS AND SUPPLEMENTS INCLUDING FLAX SEED OIL, FISH OIL, VITAMIN E, GARLIC (supplements only, garlic in food is ok), GINKGO BILOBA, GINSENG POST OPERATIVE CONSTIPATION Even if you have regular bowel movements prior to having surgery, you are likely to experience post-operative constipation. Exposure to anesthetics and narcotic pain medication, alterations in your diet and fluid intake and reduced physical activity can all contribute to this. We strongly recommend the following to reduce the likelihood of post-operative constipation: 1. Take the recommended dose of over the counter Miralax in the late afternoon or evening prior to your surgery. This should be continued on a daily basis once you are home until you are no longer taking RX pain medication and resume having normal bowel movements. 2. Some type of stimulant laxative such as Senokot, Milk of Magnesia, Dulcolax may be needed in addition to Miralax if you continue to experience constipation. 3. If you are having issues with constipation after trying the above measures, PLEASE call the office for further advice. Post-operative pain management Pain after operations is a unique experience for everyone and varies in intensity depending on the invasiveness of the procedure. Well controlled pain after surgery increases the ability to move and can decrease some post-operative complications. Typical pain medication regime can include: Tylenol (Acetaminophen) 650 mg q 6 hours alternating with Motrin (Ibuprofen) 400-600mg every 6 hours The hospital will discharge you with narcotic pain medication which can be introduced in between these doses to increase acute pain after the initial days following your procedure. Tylenol Tylenol Call [phone] if you have questions. Please have your prescription mediation card and means by paying for any prescription medication youmay be discharged with. For your convenience there is a pharmacy located in the main [facility]/ LEVEL 3 of the hospital. documented in this encounter Discharge Disposition Disposition Code Departure Means Destination Auto Discharge documented in this encounter Progress Notes Will Jaramillo MD, MD - 06/24/2018 0930 EST Just a note to keep you up-to-date with regards to your patient Roseann Wilcox. As you will recall, Ms. Wilcox is a 73-year-old female who back in July 15, 2016 underwent a da Freddie assisted total laparoscopic hysterectomy, bilateral salpingo-oophorectomy and bilateral sentinel hypogastric lymph node biopsies, and resection of portion of small bowel. The final pathology report demonstrated that she had a stage Ia grade 1 endometrioid adenocarcinoma. The final pathology report demonstrated no evidence of myometrial invasion. There was no evidence of lymph vascular space involvement. The small bowel had no evidence of malignancy of subserosal adenomyosis. Recently, the patient was found to have a vaginal mass and a guided biopsy of the vaginal mass demonstrates recurrent adenocarcinoma consistent with her endometrial carcinoma. Today, the patient presents the office to discuss treatment options. Review of systems: She denies any shortness of breath or chest pain. She has occasional mild spotting. She has no urinary or GI complaints. Remainder 10 point review of systems is otherwise negative. Final Pathologic Diagnosis: Vagina mass, biopsy: - ??Recurrent endometrial adenocarcinoma, endometrioid type, FIGO grade 1 Current Outpatient Medications Medication Sig Dispense Refill [...] 1 Cap by mouth 2 times daily. (Patient taking differently: Take 100 mg by mouth 2 times daily. ) 60 Cap 2 ??? fexofenadine (RADHA) 60 mg tablet Take 180 mg by mouth at bedtime. ??? fluticasone (FLONASE) 50 mcg/actuation nasal spray Instill 100 mcg into both nostrils as needed.Reported on 07/15/2016 ??? folic acid (FOLVITE) 400 mcg tablet Take 800 mcg by mouth daily. ??? hydroCHLOROthiazide (HYDRODIURIL) 25 mg tablet Take 25 mg by mouth daily. ??? hydrocortisone 0.5 % cream Apply topically once a week. ??? Lactobacillus acidophilus (PROBIOTIC) 10 billion cell capsule Take 1 Cap by mouth daily. ??? levothyroxine (SYNTHROID) 25 mcg tablet Take [...] 12 HOUR NASAL) by nasal route. ??? Potassium Gluconate 595 mg (99 mg) tablet Take 1 Tab by mouth daily. ??? psyllium, 5.8 G, (METAMUCIL) packet Take 1 Packet by mouth daily. ??? selenium 100 mcg tablet Take 200 mcg by mouth daily. Reported on 08/12/2016 ??? Selenium 200 mcg tablet Take 200 [...] file Gets together: Not on file Attends quaker service: Not on file Active member of [...] and ROS is otherwise negative. Objective: BP 136/70 Ht 152.4 cm (60) Wt 99.8 kg (220 lb) BMI 42.97 kg/m?? 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 The periurethral perianal area is grossly within normal limits. Ext: no CCE Assessment & Plan: Today, I had a long discussion with Ms. Wilcox and her family with regards to her current situation.I explained to them that the recent vaginal biopsy demonstrates recurrent adenocarcinoma consistent with her uterine primary. I did explain to Ms. Wilcox that we are awaiting a secondary review of the CAT scan of the abdomen and pelvis. With that said, I will be getting a CAT scan of the chest to ruleout any evidence of metastatic disease. I also explained to Ms. Wilcox that I will be presenting hercase to our tumor board to discuss treatment options. I did review with Ms. Wilcox the following options 1. Radiation therapy. We discussed the possibility of proceeding with radiation therapy. I explainedto Ms. Wilcox that I would defer to our radiation oncologist as to whether she needs external with or without internal beam. 2. Surgical resection. I explained to Ms. Wilcox that we could consider resecting this vaginal mass and then treating her with adjuvant therapy. Potential risk of surgical resection would include but not limited to possible injury to bowel/rectum. After answering all of her questions, Ms. Wilcox understands that I will be presenting her case to our tumor board. However, given the fact that she lives a distance away from our [employer] office, I have taken the liberty of obtaining surgical consent for excision of vaginal tumor. The potential risk and benefits of surgery were reviewed with her. With regards to postoperative pain management, we discussed the possibility of using Tylenol and narcotics. Opioid consent form was signed after reviewing the risk and benefits. I clearly explained to Ms. Wilcox that surgical resection with adjuvant therapy would not guarantee that her cancer will not recur. She states that she understands. I will be ordering a CAT scan of thechest today and I will be presenting her case to our tumor board tomorrow. As always, I thank you for allowing me to participate in the care of your patients. I will keep you informed of her progress. Sincerely, Will Jaramillo MD Director, Division of Outpatient Physical Therapist Assistant Oncology [facility] documented in this encounter Plan of Treatment Upcoming Encounters Date Type Specialty Care Team Description 03/28/2022 Office Visit Gynecologic Oncology Kush Liz PA-C [address] [facility], [address] [place] [phone] (Wo rk) documented as of this encounter Procedures Procedure Name Priority Date/Time Associated Diagnosis Comme nts ECG REPORT - SCANNED 06/29/2018 10:[address] CHEST W CONTRAST Routine 06/24/2018 13:40 Endometrial cance r Results for this EST (HCC-CMS) procedure are in Neoplasm the results section. EKG 12-LEAD Routine 06/24/2018 11:41 Endometrial cancer Resul ts for this EST (HCC-CMS) procedure are in Neoplasm the results section. OUTPATIENT ADD-ON Routine 06/24/2018 11:26 Endometrial cancer Results for this EST (HCC-CMS) procedure are in Neoplasm the results section. documented in this encounter Results CT CHEST W CONTRAST (06/24/2018 13:40 EST) Anatomical Region Laterality Modality Other Specimen Narrative [facility] - 06/24/2018 14:[address] CHEST W CONTRAST ??06/24/2018 1:40 PM Clinical History/Comments: C54.1-Malignant neoplasm of endometrium (HCC-CMS)-ICD-10 D49.9-Neoplasm of unspecified behavior o f unspecified site-ICD-10; Pt with new mass on vaginal cuff, recurr ent endometrial cancer. Please evaluate for evidence of metastat ic disease. Technique: A single breath-hold helical CT acquisit ion was performed through the chest on a multidetector-row scanner with a reconstructed slice thickness of 3 mm and retrospectively re constructed 0.9 mm thick sections with 0.45 mm overlapping interv als. ??The scans were obtained from the lung apices through th e bases during the intravenous administration of 70-100 cc of 350-370 mg% nonionic contrast injected at a rate of 2 cc/seco nd. Scans were reviewed on a dedicated PACS workstation for analysis. Exam description: CT of the chest with c ontrast Comparison: None. Findings: Lower neck: No abnormalities. Chest wall soft tissues: No abnormalitie s. Mediastinum and marcie: No enlarged medias tinal or hilar lymph nodes. ? Heart and mediastinal vasculature: ??Mil d mitral annular calcification. Mild calcification of the coronary arteries. Large airways: ??No abnormalities. Lungs: ??Mild basilar interstitial thick ening (mild reticulations and a subpleural line in the right lower lob e). No nodules or masses. Focal regions of atelectasis or scarring in the left lower lobe adjacent to the ascending thoracic aorta . Pleura: No abnormalities. Upper abdomen (limited to upper abdomen, not optimized for abdominal imaging): No abnormalities. Bones: ??No significant abnormalities. Impression: 1. ??No metastatic lesions in the chest. 2. ??Mild subpleural, basilar interstiti al lung disease. 3. ??Focal region of scarring or atelect asis in the posterior basal segment of the left lower lobe. Procedure Note Mamadou Doll MD, - 06/24/2018 CT CHEST W CONTRAST 06/24/2018 1:40 PM Clinical History/Comments: C54.1-Malignant neoplasm of endometrium (HCC-CMS)-ICD-10 D49.9-Neoplasm of unspecified behavior o f unspecified site-ICD-10; Pt with new mass on vaginal cuff, recurr ent endometrial cancer. Please evaluate for evidence of metastat ic disease. Technique: A single breath-hold helical CT acquisit ion was performed through the chest on a multidetector-row scanner with a reconstructed slice thickness of 3 mm and retrospectively re constructed 0.9 mm thick sections with 0.45 mm overlapping interv als. The scans were obtained from the lung apices through th e bases during the intravenous administration of 70-100 cc of 350-370 mg% nonionic contrast injected at a rate of 2 cc/seco nd. Scans were reviewed on a dedicated PACS workstation for analysis. Exam description: CT of the chest with c ontrast Comparison: None. Findings: Lower neck: No abnormalities. Chest wall soft tissues: No abnormalitie s. Mediastinum and marcie: No enlarged medias tinal or hilar lymph nodes. Heart and mediastinal vasculature: Mild mitral annular calcification. Mild calcification of the coronary arteries. Large airways: No abnormalities. Lungs: Mild basilar interstitial thicken ing (mild reticulations and a subpleural line in the right lower lob e). No nodules or masses. Focal regions of atelectasis or scarring in the left lower lobe adjacent to the ascending thoracic aorta . Pleura: No abnormalities. Upper abdomen (limited to upper abdomen, not optimized for abdominal imaging): No abnormalities. Bones: No significant abnormalities. Impression: 1. No metastatic lesions in the chest. 2. Mild subpleural, basilar interstitial lung disease. 3. Focal region of scarring or atelectas is in the posterior basal segment of the left lower lobe. Performing Organization Address City/State/ZIP Code Phon e Number [facility] EKG 12-LEAD (06/24/2018 11:41 EST) Specimen Narrative [facility] EKG - 06/29/2018 10:3 6 EDT ? [facility] ? Test Date: ?2018-06-24 Pat Name: ? ROSEANN WILCOX ?Department: ?? MP4 Outpatient Physical Therapist Assistant Onc ? Room: ? Gender: ? Female ? Dispatcher Tugboat: ?? [id number] : ?1945 ? Requested By: CLINT TRAN Order Number: [id number] ? Reading : ?? BUDDY LAM MD ? Measurements Intervals ?[place] ? Rate: ? 77 ? P: ?28 NH: ? 190 ?QRS: ?-34 QRSD: ? 110 ?T: ?52 QT: ? 380 ? QTc: ?430 ? Interpretive Statements SINUS RHYTHM LEFT AXIS DEVIATION MODERATE VOLTAGE CRITERIA FOR LVH, CONSI LACEY NORMAL VARIANT POSSIBLE LATERAL MYOCARDIAL INFARCTION , OF INDETERMINATE AGE Compared to ECG 07/04/2016 14:17:27 Left-axis deviation now present Myocardial infarct finding still present I reviewed the tracing and have either a greed or edited the findings in this report. Electronically Signed On 06-30-19 10:36:54 EDT by BUDDY LAM MD. Procedure Note Buddy Lam MD, - 06/29/2018 [facility] Test Date: 2018-06-24 Pat Name: ROSEANN WILCOX Department: MP4 Outpatient Physical Therapist Assistant Onc Room: Gender: Female Dispatcher Tugboat: [id number] : 1945 Requested By: JARAMILLO VELIANANCY Snyder Order Number: [id number] Reading MD: Christopher LAM MD Measurements Intervals [place] Rate: 77 P: 28 NH: 190 QRS: -34 QRSD: 110 T: 52 QT: 380 QTc: 430 Interpretive Statements SINUS RHYTHM LEFT AXIS DEVIATION MODERATE VOLTAGE CRITERIA FOR LVH, CONSI LACEY NORMAL VARIANT POSSIBLE LATERAL MYOCARDIAL INFARCTION , OF INDETERMINATE AGE Compared to ECG 07/04/2016 14:17:27 Left-axis deviation now present Myocardial infarct finding still present I reviewed the tracing and have either a greed or edited the findings in this report. Electronically Signed On 06-30-19 10:36:54 EDT by BUDDY LAM MD. Performing Organization Address City/[facility]/ZIP Code Phon e Number [facility] EKG OUTPATIENT ADD-ON (06/24/2018 11:26 EST) Tests to be added CMP [facility]ORAT[facility] SERVICES Diagnosis Code SEE EPIC DOS [facility] [id number] LABORATORY SERVICES Number for problems 75,110 [facility] Accession number [id number] [facility] Acknowledge ABP Done [facility] Specimen Blood Performing Organization Address City/[facility]/ZIP Code Phon e Number [facility] [address] [place] [address] SERVICES PTT (06/24/2018 11:09 EST) Pathologist Sig nature PTT 31 26 - 37 secs [facility] LABORATOR Y SERVICES Specimen Blood specimen (specimen) - Blood Performing Organization Address City/[facility]/ZIP Code Phon e Number [facility] [address] [place] [address] SERVICES PROTIME (06/24/2018 11:09 EST) Pro Time 13.0 10.3 - 13.4 [facility] secs LABORATORY SERVICES I.N.R. 1.1 0.9 - 1.1 [facility] Comment: Ratio LABORATORY SERVICES Moderate Intensity Coumadin INR = 2.0-3.0 Adjustments in anticoagulant therapy dose should be based upon the INR and NOT the Pro Time. Specimen Blood specimen (specimen) - Blood Performing Organization Address City/[facility]/ZIP Code Phon e Number [facility] [address] [place] [phone] SERVICES (ABNORMAL) BASIC METABOLIC PANEL (BMP) (06/24/2018 11:09 EST) Sodium 141 136 - 145 [facility] mEq/L LABORATORY SERVICES Potassium 4.4 3.5 - 5.0 [facility] mEq/L LABORATORY SERVICES Chloride 99 96 - 110 [facility] mEq/L LABORATORY SERVICES CO2 29 22 - 32 mEq/L [facility] SERVICES BUN 15 10 - 26 mg/dl [facility] SERVICES Creatinine 0.67 0.52 - 1.04 [facility] mg/dl LABORATORY SERVICES GFR, Calculated 88 >60 [facility] Comment: ml/min/1.73m2 LABORATORY eGFR calculated using CKD-EPI equation for SERVICES non Americans. Multiply eGFR by 1.16 for Americans. Calcium 10.6 (H) 8.5 - 10.5 [facility] mg/dl LABORATORY SERVICES Calculated Calcium 9.8 8.5 - 10.5 [facility] mg/dl LABORATORY SERVICES Glucose, Serum 93 70 - 100 [facility] mg/dl LABORATORY SERVICES Fasting? No [facility]ORATORY SERVICES Specimen Blood specimen (specimen) - Blood Performing Organization Address City/[facility]/ZIP Code Phon e Number [facility] [address] [place] [address] SERVICES (ABNORMAL) COMPLETE BLOOD COUNT (06/24/2018 11:09 EST) Pathologist Sig nature WBC 8.28 4.0 - 12.4 K/cmm [facility] SERVICES RBC 4.11 3.86 - 5.04 M/cmm [facility] SERVICES Hemoglobin 12.7 11.6 - 15.2 gm/dl [facility] SERVICES HCT 38.4 34.9 - 44.4 % [facility] SERVICES MCV 93 81 - 98 fl [facility] SERVICES MCH 30.9 26.7 - 33.3 pg [facility] SERVICES MCHC 33.1 32.1 - 35.9 gm/dl [facility] SERVICES RDW-CV 14.7 (H) <14.7 % [facility] SERVICES RDW-SD 50.6 (H) <50.4 fl [facility] SERVICES PLT 281 141 - 377 K/cmm [facility] SERVICES MPV 9.9 9.5 - 12.7 fl [facility] SERVICES Specimen Blood specimen (specimen) - Blood Performing Organization Address City/State/ZIP Code Phon e Number [facility] [address] [place] [address] SERVICES documented in this encounter Visit Diagnoses Diagnosis Endometrial cancer ([facility]) (HCC) - Sonia paredes Malignant neoplasm of corpus uteri, exce pt isthmus Neoplasm Neoplasm of unspecified nature, site uns pecified documented in this encounter Discontinued Medications Medication Sig Discontinue Reason Start Date End Date Miscellaneous Medication Nifedipine 0.2% Therapy completed 11/19/19 18 06/24/2018 - See Admin Instructions ointment 15 g. Please compound for patient. Apply twice daily and after bowel movements. documented as of this encounter Orders Procedures Count Last Ordered Date First Ordered Date ECG REPORT - SCANNED 1 06/30/2018 documented in this encounter Care Teams Gristmiller Relationship Specialty Start Date End Date Eve Londono MD PCP - General 04/18/17 [address] [place], [place] [id number] documented as of this encounter
--- OUTSIDE RECORDS SUMMARY | 2022-01-25 01:49 | XMS_ITS | Encounter Summary ---
:1945 Author Organization [facility] Address [address] [place] [address] Care Team Providers Name Role Phone Eve Londono MD Primary Care Provider Reason for Visit Reason Comments Cancer Encounter Details Date Type Department Care Team Description 07/30/2018 Radiation Therapy [facility] Ling Blancas RN Endometrial cancer Visit Radiation Oncology [address] [place] [address] ([facility]) ([facility] - [facility] AVENUE Dx) [address] [place] [id number] Social History Tobacco Use Types Packs/Day Years Used Date Former Smoker Smokeless Tobacco: Never Used Alcohol Use Standard Drinks/Week Comments No 0 (1 standard drink = 0.6 oz pure alcoho l) Sex Assigned at Date Recorded Female 09/25/2021 8:41 EDT documented as of this encounter Last Filed Vital Signs Vital Sign Reading Time Taken Comments Blood Pressure - - Pulse - - Temperature 36.8 ??C (98.2 ??F) 07/30/2018 1258 EDT Respiratory Rate - - Oxygen Saturation 98% 07/30/2018 1258 EDT Inhaled Oxygen - - Concentration Weight 99.1 kg (218 lb 6.4 07/30/2018 1258 with shoes a nd oz) EDT clothes Height - - Body Mass Index 42.88 07/06/2018 1503 EDT documented in this encounter [...] encounter Progress Notes Kimberly Blancas RN - 07/30/2018 1258 EDT On Treatment Visit Assessment: Roseann Wilcox is currently receiving radiation therapy treatment and is being seen today for her weekly on treatment visit. The encounter diagnosis was Endometrial cancer ([facility] Assessment: Assessment Completed By: Kimberly Blancas RN (07/30/18 1258) Radiation Therapy: Cumulative RT Dose 180 cGy Daily RT Dose 180 cGy Total RT Planned Dose 4500 cGy Chemotherapy Agent none Subjective Note: General: day 1 of radiation. at baseline bowels: 1-2 soft formed bm's /day. takes 3 colace and miralax to maintain. bladder no issues. deneis vaginal bleeding. denies pelvic pain Nutrition: reg diet Pain: pelvis Numeric Pain Level (Scale 1-10): 0 Pain Treatment: none Narcotic: No Psychosocial: coping well with supportive . stays at [facility] Review of Systems: as above Physical Exam: Temp: 36.8 ??C (98.2 ??F) Temp src: Tympanic SpO2: 98 % O2 Device: None (Room air) Weight : 99.1 kg (218 lb 6.4 oz)(with shoes and clothes) Weight Method: Actual Sitting BP: 121/58 Sitting Pulse: 57 Standing BP: 153/70 Standing Pulse: 71 General: well groomed woman who is independent with mobility General Appearance: Appears comfortable, no acute distress Here With: self Skin Exam: deferred day 1 Skin Reaction: none(no issues per patient) Anorectal: 1-2 soft formed bm's per day with 3 colace and miralax Neurologic: a/o x 3 Treatment Related Toxicity: Weekly Review: Impression: Plan: documented in this encounter Plan of Treatment Upcoming Encounters Date Type Specialty Care Team Description 03/28/2022 Office Visit Gynecologic Oncology Kush Liz PA-C [address] [facility], [facility], [facility] [address] [place], [place] [phone] (Wo rk) documented as of this encounter Visit Diagnoses Diagnosis Endometrial cancer (HCC-CMS) (HCC) - [facility] Malignant neoplasm of corpus uteri, exce pt isthmus documented in this encounter Discontinued Medications Medication Sig Discontinue Reason Start Date End Date Lactobacillus acidophilus Take 1 Cap by Therapy completed 07/30/2018 (PROBIOTIC) 10 billion mouth daily. cell capsule documented as of this encounter Care Teams Road Sign Installer Relationship Specialty Start Date End Date Eve Londono MD PCP - General 04/18/17 [address] [place] [address] documented as of this encounter
--- OUTSIDE RECORDS SUMMARY | 2022-01-25 01:49 | XMS_ITS | Encounter Summary ---
:1945 Author Organization [facility] Address [address] [place] [address] Care Team Providers Name Role Phone Eve Londono MD Primary Care Provider Reason for Visit Reason Comments Cancer Encounter Details Date Type Department Care Team Description 08/24/2018 Radiation Therapy [facility] Lida Thomas metrial cancer Visit Radiation Oncology - [facility] ([facility] (Primary Main [place] Dx) [address] [place] [address] Social History Tobacco Use Types [...] of this encounter Progress Notes Mary Anne hTomas RN - 08/24/2018 1253 EDT On Treatment Visit Assessment: Roseann Wilcox is currently receiving radiation therapy treatment and is being seen today for her weekly on treatment visit. The encounter diagnosis was Endometrial cancer ([facility] Assessment: Assessment Completed By: Mary Anne Thomas RN (08/24/18 1254) Radiation Therapy: Cumulative RT Dose 3240 cGy Daily RT Dose 180 cGy Total RT Planned Dose 4500 cGy Chemotherapy Agent none Subjective Note: General: min fatigue resolved with cat nap, no other s/e noted from xrt bowels stable urination stable Nutrition: reg Pain: none Numeric Pain Level (Scale 1-10): 0 Psychosocial: coping well, enjoys [facility] Physical Exam: General Appearance: Appears comfortable, no acute distress Here With: self Skin Reaction: none : wnl occasional hesitation starting stream but able to urinate fully BUSINESS OBJECTS DEVELOPER: no bleedingor d/c Anorectal: 1-2 soft bm per day Neurologic: a/o x3 Treatment Related Toxicity: Fatigue: 1-Fatigue relieved by rest Pain: 0-None Alopecia: 0-None Dermatitis: 0-None Anorexia: 0-None Weight Loss: 0-<5% from baseline Esophagitis: 0-None Dysphagia: 0-Normal Abdominal Pain: 0-None Nausea: 0-None Vomitin-None Diarrhea: 0-None Constipation: 0-None Dyspepsia: 0-None Proctitis: 0-None Bladder Spasm: 0-None Cystitis: 0-None Incontinence: 0-None Urinary Frequency: 0-None Urinary Retention: 0-None Vaginal Bleedin-None Weekly Review: Impression: Performance Status: 0-Fully active, able to carry on all pre-disease performance without restriction Plan: Plan: Continue per plan documented in this encounter Plan of Treatment Upcoming Encounters Date Type Specialty Care Team Description 03/28/2022 Office Visit Gynecologic Oncology Kush Liz PA-C [address] [facility], [facility], [address] [place], [place] [address] (Wo rk) documented as of this encounter Visit Diagnoses Diagnosis Endometrial cancer (HCC-CMS) (HCC) - [facility] Malignant neoplasm of corpus uteri, exce pt isthmus documented in this encounter Care Teams Grinder And Honer Operator Automatic Relationship Specialty Start Date End Date Eve Londono MD PCP - General 04/18/17 [address] [place] [address] documented as of this encounter
--- OUTSIDE RECORDS SUMMARY | 2022-01-25 01:49 | XMS_ITS | Encounter Summary ---
:1945 Author Organization [facility] Address [address] [place] [address] Care Team Providers Name Role Phone Eve Londono MD Primary Care Provider Encounter Details Date Type Department Care Team Description 06/24/2018 Results Only [facility] Will Banegas MD Imaging Gynecologic Oncology - [address] [facility], [address], [address] [place], [place] [id number] [place] [address] [phone] (Wo rk) Social History Tobacco Use [...] Visit Gynecologic Oncology Kush Liz PA-C [address] [facility], [facility], [address] [place] [phone] (Wo rk) documented as of this encounter Procedures Procedure Name Priority Date/Time Associated Diagnosis Comme nts SECONDARY READ BODY 06/24/2018 14:[address] EST procedure are i n the results section. documented in this encounter Results SECONDARY READ BODY CT (06/24/2018 14:40 EST) Anatomical Region Laterality Modality Other Specimen Narrative [facility] - 06/24/2018 15:[address] ??06/24/2018 2:40 PM Signs and Symptoms/Comments: ?? 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 ??r/o metastatic disease , CT abd/pelvis [facility]. SECONDARY READ BODY CT ??06/24/2018 2:40 P M This is a secondary performed at the [facility] of Dr. Banegas Technique: Helically acquired CT images of the abdo men and pelvis were obtained during intravenous contrast administrati on. Coronal and sagittal reconstructed images were obtained. Comparison: July 11, 2016 Findings: Hepatobiliary and gallbladder : ??Normal . Spleen and pancreas: A small cysts in th e spleen is stable. The pancreas is unremarkable. Adrenals and kidneys: A small right adre nal nodule is stable. The left adrenal gland is slightly hyperplas tic. There is a left-sided extrarenal pelvis. A small cyst is prese nt in the right kidney. Bowel: Within normal limits. Lymphovascular: Nonenlarged retroperiton eal and pelvic lymph nodes are stable. There is moderate atheroscle rosis. Peritoneal cavity: There is no evidence of free fluid. Uterus and ovaries: Since the previous examination, there has been interval hysterectomy and bilateral salpingo-ooph orectomy. Both size of the vagina are prominent, right greater than left. Musculoskeletal: Within normal limits fo r age. Lung bases: Please refer to the separate chest CT report performed on the same day as this abdominal CT for the evaluation of the lung bases and the lower chest. Impressions: 1. ??Interval hysterectomy and bilateral salpingo-oophorectomy. 2. The vagina is prominent, right greate r than left. By history, the patient has recently biopsied and path p roven endometrial carcinoma involving the vagina 3. Stable splenic cyst. 4. Stable small right adrenal nodule. 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 r/o metastatic disease, CT abd/pelvis [facility]. SECONDARY READ BODY CT 06/24/2018 2:40 PM This is a secondary performed at the [facility] of Dr. Banegas Technique: Helically acquired CT images of the abdo men and pelvis were obtained during intravenous contrast administrati on. Coronal and sagittal reconstructed images were obtained. Comparison: July 11, 2016 Findings: Hepatobiliary and gallbladder : Normal. Spleen and pancreas: A small cysts in th e spleen is stable. The pancreas is unremarkable. Adrenals and kidneys: A small right adre nal nodule is stable. The left adrenal gland is slightly hyperplas tic. There is a left-sided extrarenal pelvis. A small cyst is prese nt in the right kidney. Bowel: Within normal limits. Lymphovascular: Nonenlarged retroperiton eal and pelvic lymph nodes are stable. There is moderate atheroscle rosis. Peritoneal cavity: There is no evidence of free fluid. Uterus and ovaries: Since the previous examination, there has been interval hysterectomy and bilateral salpingo-ooph orectomy. Both size of the vagina are prominent, right greater than left. Musculoskeletal: Within normal limits fo r age. Lung bases: Please refer to the separate chest CT report performed on the same day as this abdominal CT for the evaluation of the lung bases and the lower chest. Impressions: 1. Interval hysterectomy and bilateral s alpingo-oophorectomy. 2. The vagina is prominent, right greate r than left. By history, the patient has recently biopsied and path p roven endometrial carcinoma involving the vagina 3. Stable splenic cyst. 4. Stable small right adrenal nodule. Performing Organization Address City/State/ZIP Code Phon e Number [facility] documented in this encounter Visit Diagnoses Not on filedocumented in this encounter Care Teams Snowmobile Mechanic Relationship Specialty Start Date End Date Eve Londono MD PCP - General 04/18/17 [address] [place] [address] documented as of this encounter
--- OUTSIDE RECORDS SUMMARY | 2022-01-25 01:49 | XMS_ITS | Encounter Summary ---
:1945 Author Organization [facility] Address [address] [place] [address] Care Team Providers Name Role Phone Eve Londono MD Primary Care Provider Encounter Details Date Type Department Care Team Description 05/19/2019 Orders Only [facility] Erich Santizo MD Radiology - Main [place] [address] [place] [address] [place], [place] [id number] [phone] Social History Tobacco Use Types Packs/Day Years [...] Visit Gynecologic Oncology Kush Liz PA-C [address] [facility], [facility], [address] [place], [place] [phone] (Wo rk) documented as of this encounter Visit Diagnoses Not on filedocumented in this encounter Care Teams Stand Up Forklift Operator Relationship Specialty Start Date End Date Eve Londono MD PCP - General 04/18/17 [address] [place] [address] documented as of this encounter
--- OUTSIDE RECORDS SUMMARY | 2022-01-25 01:49 | XMS_ITS | Encounter Summary ---
:1945 Author Organization [facility] Address [address] [place] [address] Care Team Providers Name Role Phone Eve Londono MD Primary Care Provider Reason for Visit Reason Comments Cancer Encounter Details Date Type Department Care Team Description 09/08/2018 Radiation Therapy [facility] Lida Thomas metrial cancer Visit Radiation Oncology - [facility] ([facility] (Primary Main [place] Dx) [address] [place] [address] Social History Tobacco Use Types [...] as of this encounter Progress Notes Mary nAne Thomas RN - 09/08/2018 1325 EDT On Treatment Visit Assessment: Roseann Wilcox is currently receiving radiation therapy treatment and is being seen today for her weekly on treatment visit. The encounter diagnosis was Endometrial cancer ([facility] Assessment: Assessment Completed By: Mary Anne Thomas RN (09/08/18 0399) Radiation Therapy: Cumulative RT Dose 4500 + 720 boost cGy Daily RT Dose 180 cGy Total RT Planned Dose 4500 + 900 boost cGy Chemotherapy Agent none Subjective Note: General: fatigued , notes no other s/e occasional loose stool r/t diet Nutrition: lower fiber Pain: none Numeric Pain Level (Scale 1-10): 0 Physical Exam: General Appearance: Appears comfortable, no acute distress Here With: self Skin Reaction: none Abdomen: denies n/v : wnl PARQUET FLOOR LAYER'S HELPER: no bleeding Anorectal: 1-2 soft bm day Neurologic: a/o x3 Treatment Related Toxicity: Fatigue: 1-Fatigue relieved by rest Pain: 0-None Dermatitis: 0-None Anorexia: 0-None Esophagitis: 0-None Abdominal Pain: 0-None Nausea: 0-None Vomitin-None Diarrhea: 1-Increase of <4 stools per day over baseline: mild increase in ostomy output Constipation: 0-None Dyspepsia: 0-None Proctitis: 0-None Bladder Spasm: 0-None Cystitis: 0-None Incontinence: 0-None Urinary Frequency: 0-None Urinary Retention: 0-None Vaginal Bleedin-None Weekly Review: Impression: Performance Status: 1-Symptomatic, ambulatory, restricted in physically strenuous activity Plan: Plan: Continue per plan Plan Comment: will complete tomorow vaginal dilators given and verbal/written instructions for use reviewed with pt Medication Changes: none documented in this encounter Plan of Treatment Upcoming Encounters Date Type Specialty Care Team Description 03/28/2022 Office Visit Gynecologic Oncology Kush Liz PA-C [address] [facility], [facility], [address] [place], [place] [phone] (Wo rk) documented as of this encounter Visit Diagnoses Diagnosis Endometrial cancer (HCC-CMS) (HCC) - [facility] Malignant neoplasm of corpus uteri, exce pt isthmus documented in this encounter Care Teams Family Manager Relationship Specialty Start Date End Date Eve Londono MD PCP - General 04/18/17 [address] [place] [address] documented as of this encounter
--- OUTSIDE RECORDS SUMMARY | 2022-01-25 01:49 | XMS_ITS | Encounter Summary ---
:1945 Author Organization [facility] Address [address] [place] [address] Care Team Providers Name Role Phone Eve Londono MD Primary Care Provider Reason for Referral Consult (Other (Specify in Question)) - Specialty Report Received Specialty Diagnoses / Procedures Referred By Contact Refer red To Contact Radiation Oncology Diagnoses Endometrial cancer ([facility]) ([facility]) Will Banegas MD Gagne, Havaleh M, MD 111 [facility] 111 [facility], [facility], [facility] [address], [facility] [address] [place] [phone] Fax: Referral ID Status Reason Start Expiration Visits Visits Date Date Requested Authorized [id number] Specialty Specialty 06/26/2018 1 1 Report Services Received Required Question Answer Reason for Request: endometrial cancer, s/p hyst erectomy 2017 now with vaginal apex recurrence. please discuss t x with radiation. consult to be coordinated with pelvic MRI adiology Services (3 - 10 Business Days) - Specialty Report Received Specialty Diagnoses / Procedures Referred By Contact Refer red To Contact Diagnoses Endometrial cancer ([facility]) ([facility]) Will Banegas MD Procedures MR PELVIS FEMALE W/WO CONTRAST 111 [facility], [facility] [address] [place] [phone] Referral ID Status Reason Start Date Expiration Date Visits V isits Requested Authorized [id number] Specialty 06/26/2018 1 1 Report Received Reason for Visit Reason Onset Date Comments Follow-up 06/26/2018 Encounter Details Date Type Department Care Team Description 06/26/2018 Telephone [facility] Gynecologic Sarah Lima RN [place] [address] Social History Tobacco Use Types Packs/Day Years [...] this encounter Miscellaneous Notes Telephone Encounter - Leti Lima RN - 06/26/2018 0926 EST PHone call to Roseann Wilcox, follow up to sociology instructor onc TB conference on 06/25/18. Discussed with Roseann that her case was reviewed with sociology instructor onc, rad onc, med onc, pathology, radiology present. Secondary review on her CT abd/pelvis showed no evidence of metastatic cancer. CT chest on 06/24 was also negative forany evidence of metastatic cancer. Consensus opinion at TB was to offer pt radiation for vaginal recurrence. Roseann is pleased to hear this and would like to have a consult with radiation oncology to discuss this option further. Advised that MRI pelvis was also recommended to further characterize siteof recurrence. She is in agreement. Follow up call with appts, message left MRI pelvis scheduled on Friday07/03/18, check in at [facility] at 1:45pm for 3:[address]. [address] Rivas on Thursday 07/06 at 3pm, check in at 2:30 appts confirmed by pt via voice mail Leti Lima RN 07/01/2018 11:38 documented in this encounter Plan of Treatment Upcoming Encounters Date Type Specialty Care Team Description 03/28/2022 Office Visit Gynecologic Oncology Kush Liz PA-C 111 [facility], [facility], [address] [place], [place] [address] (Wo rk) Scheduled Referrals Name Type Priority Associated Diagnoses Order S chedule AMB CONS/FOLLOW UP Outpatient Referral Routine Endometrial can cer Ordered: RADIATION ONCOLOGY ([facility]) 9 documented as of this encounter Procedures Procedure Name Priority Date/Time Associated Diagnosis Comme nts MR PELVIS FEMALE Routine 07/03/2018 15:26 Endometrial cancer R esults for this W/WO CONTRAST EDT ([facility]) procedure are in the results section. documented in this encounter Results MR PELVIS FEMALE W/WO CONTRAST (07/03/2018 15:26 EDT) Anatomical Region Laterality Modality Other Specimen Narrative [facility] - 07/03/2018 17:31 EDT MR FEMALE PELVIS W/WO CONTRAST ??07/03/2018 3:26 PM Signs and Symptoms/Comments: ?? C54.1-Malignant neoplasm of endometrium ([facility])-ICD-10; endometrial cancer, recurrence at vagina l apex, bx proven. Technique: Contrast-enhanced MR of the pelvis was p erformed with the following sequences: Sagittal T2, coronal T2 with fat suppression, axial T2, axial T1, axial T1 with fat suppression, and postcontrast three plane T1 with fat suppression. Comparison: Outside CT the abdomen and p chino 05/14/2018. Findings: Uterus/cervix: The uterus and cervix are surgically absent and there is postsurgical scarring posterior to th e bladder. Vagina: At the superior margin of the va antonio there is a bilobed V shaped, mass that is T1 isointense to mu scle, mildly T2 hyperintense, and does not saturate on f at sat imaging. The right aspect of this finding measures approxim ately 2 x 1 cm in the left aspect measures 1.7 x 1 cm (coronal T2 f at sat (series 103) image 21). Although subtraction imaging not ob tained with this technique, mild enhancement is suspected. There is a preserved fat plane surrounding the vaginal cuff and the mas s contained within. Ovaries: The ovaries are surgically abse nt. Bladder: Aside from some posterior post surgical scarring, the bladder is normal. Bowel: The included bowel is normal. Lymphovascular: There are no pathologica lly enlarged lymph nodes within the included cifaf-os-afnx. The i liac and femoral arteries are nonaneurysmal. The major vascular fl ow voids are present. Peritoneal cavity: There is no intraperi toneal free air or fluid. Abdominal wall: There are no bowel-conta ining hernia. Musculoskeletal: The bone marrow signal is normal for age and there are no suspicious osseous lesions. Localizer/wide field coronal images: No abnormalities. Impression: 1. ??Bilobed 2 x 1 cm V shaped mass in t he remnant vaginal apex without evidence of direct invasion of t he surrounding tissues. No pelvic lymphadenopathy. 2. ??Status post total abdominal hystere ctomy and bilateral salpingo-oophorectomy. I have personally reviewed the images an d the above interpretation and agree with the findings. Procedure Note Corbin Donovan MD, MD - 07/03/2018 MR FEMALE PELVIS W/WO CONTRAST 07/03/2018 3:26 PM Signs and Symptoms/Comments: C54.1-Malignant neoplasm of endometrium (HCC-CMS)-ICD-10; endometrial cancer, recurrence at vagina l apex, bx proven. Technique: Contrast-enhanced MR of the pelvis was p erformed with the following sequences: Sagittal T2, coronal T2 with fat suppression, axial T2, axial T1, axial T1 with fat suppression, and postcontrast three plane T1 with fat suppression. Comparison: Outside CT the abdomen and p chino 05/14/2018. Findings: Uterus/cervix: The uterus and cervix are surgically absent and there is postsurgical scarring posterior to th e bladder. Vagina: At the superior margin of the va antonio there is a bilobed V shaped, mass that is T1 isointense to mu scle, mildly T2 hyperintense, and does not saturate on f at sat imaging. The right aspect of this finding measures approxim ately 2 x 1 cm in the left aspect measures 1.7 x 1 cm (coronal T2 f at sat (series 103) image 21). Although subtraction imaging not ob tained with this technique, mild enhancement is suspected. There is a preserved fat plane surrounding the vaginal cuff and the mas s contained within. Ovaries: The ovaries are surgically abse nt. Bladder: Aside from some posterior post surgical scarring, the bladder is normal. Bowel: The included bowel is normal. Lymphovascular: There are no pathologica lly enlarged lymph nodes within the included qrhxy-gu-rvdx. The i liac and femoral arteries are nonaneurysmal. The major vascular fl ow voids are present. Peritoneal cavity: There is no intraperi toneal free air or fluid. Abdominal wall: There are no bowel-conta ining hernia. Musculoskeletal: The bone marrow signal is normal for age and there are no suspicious osseous lesions. Localizer/wide field coronal images: No abnormalities. Impression: 1. Bilobed 2 x 1 cm V shaped mass in the remnant vaginal apex without evidence of direct invasion of t he surrounding tissues. No pelvic lymphadenopathy. 2. Status post total abdominal hysterect prashant and bilateral salpingo-oophorectomy. I have personally reviewed the images an d the above interpretation and agree with the findings. Performing Organization Address City/State/ZIP Code Phon e Number [facility] documented in this encounter Visit Diagnoses Diagnosis Endometrial cancer ([facility]) (HCC) - [facility] Malignant neoplasm of corpus uteri, exce pt isthmus documented in this encounter Care Teams Asparagus Cutter Relationship Specialty Start Date End Date Eve Londono MD PCP - General 04/18/17 [address] [place] [address] documented as of this encounter
--- OUTSIDE RECORDS SUMMARY | 2022-01-25 01:49 | XMS_ITS | Encounter Summary ---
:1945 Author Organization [facility] Address [address] [place] [address] Care Team Providers Name Role Phone Eve Londono MD Primary Care Provider Reason for Visit Reason Comments Cancer Encounter Details Date Type Department Care Team Description 08/03/2018 Radiation Therapy [facility] Lida Thomas metrial cancer Visit Radiation Oncology - [place] ([facility]) (Primary Main [place] [facility]) [address] [place] [address] Social History Tobacco Use Types Packs/Day Years Used Date Former Smoker Smokeless Tobacco: Never Used Alcohol Use Standard Drinks/Week Comments No 0 (1 standard drink = 0.6 oz pure alcoho l) Sex Assigned at Date Recorded Female 09/25/2021 8:41 EDT documented as of this encounter Last Filed Vital Signs Vital Sign Reading Time Taken Comments Blood Pressure 142/70 08/03/2018 1358 EDT Pulse 80 08/03/2018 1358 EDT Temperature - - Respiratory Rate 14 08/03/2018 1358 EDT Oxygen Saturation - - Inhaled Oxygen Concentration - - Weight 98.9 kg (218 lb) 08/03/2018 1358 EDT Height - - Body Mass Index [...] of this encounter Progress Notes Mary Anne Thomas RN - 08/03/2018 1358 EDT On Treatment Visit Assessment: Roseann Wilcox is currently receiving radiation therapy treatment and is being seen today for her weekly on treatment visit. The encounter diagnosis was Endometrial cancer ([facility]). Assessment: Assessment Completed By: Mary Anne Thomas RN (08/03/18 4099) Radiation Therapy: Cumulative RT Dose 540 cGy Daily RT Dose 180 cGy Total RT Planned Dose 4500 cGy Chemotherapy Agent none Subjective Note: General: no s/e noted from radiation, 1-2 soft formed bm per day Nutrition: reg Pain: pelvis Numeric Pain Level (Scale 1-10): 0 Psychosocial: coping well, enjoys [facility] Physical Exam: BP: (!) 142/70 Pulse: 80 Resp: 14 Weight : 98.9 kg (218 lb) General Appearance: Appears comfortable, no acute distress Here With: self Skin Exam: defferred reminded pt to use aquaphor nightly : wnl Neurologic: a/o x3 Treatment Related Toxicity: Fatigue: 1-Fatigue relieved by rest Pain: 0-None Alopecia: 0-None Dermatitis: 0-None Anorexia: 0-None Weight Loss: 0-<5% from baseline Diarrhea: 0-None Constipation: 0-None Bladder Spasm: 0-None Cystitis: 0-None Incontinence: 0-None Urinary Frequency: 0-None Urinary Retention: 0-None Vaginal Bleedin-None Muscle Weakness: 0-None Headache: 0-None Weekly Review: Impression: Performance Status: 0-Fully active, able to carry on all pre-disease performance without restriction Plan: Plan: Continue per plan documented in this encounter Plan of Treatment Upcoming Encounters Date Type Specialty Care Team Description 03/28/2022 Office Visit Gynecologic Oncology Kush Liz PA-C [address] [facility], [facility], [facility] [address] [place], [place] [phone] (Wo rk) documented as of this encounter Visit Diagnoses Diagnosis Endometrial cancer (HCC-CMS) (HCC) - [facility] Malignant neoplasm of corpus uteri, exce pt isthmus documented in this encounter Care Teams Compressor Station Engineer Relationship Specialty Start Date End Date Eve Londono MD PCP - General 04/18/17 [address] [place] [address] documented as of this encounter
--- OUTSIDE RECORDS SUMMARY | 2022-01-25 01:49 | XMS_ITS | Encounter Summary ---
:1945 Author Organization [facility] Address [address] [place] [address] Care Team Providers Name Role Phone Eve Londono MD Primary Care Provider Encounter Details Date Type Department Care Team Description 05/19/2019 Orders Only [facility] Cece Galarza MD Radiology - Main [place] [address] [place], [place] [id number] [place] [address] [phone] Social History Tobacco Use Types Packs/Day Years [...] Oncology Kush Liz PA-C 111 [facility], [facility], [facility] [address] [place], [place] [phone] (Wo rk) documented as of this encounter Visit Diagnoses Not on filedocumented in this encounter Care Teams Ethnoarchaeology Professor Relationship Specialty Start Date End Date Eve Londono MD PCP - General 04/18/17 [address] [place] [address] documented as of this encounter
--- OUTSIDE RECORDS SUMMARY | 2022-01-25 01:49 | XMS_ITS | Encounter Summary ---
:1945 Author Organization [facility] Address [address] [place] [address] Care Team Providers Name Role Phone Eve Londono MD Primary Care Provider Reason for Visit Reason Onset Date Comments Diagnostic Imaging Report Appointment Related 11/05/2018 Encounter Details Date Type Department Care Team Description 11/05/2018 Telephone [facility] Vesta Liz Imaging Women's Services - HUMAIRA Zeng Report; Appointment [facility] 111 [facility] Related [address] [place] [address] [address]ilion, [place] [address] (Wo rk) Social History Tobacco [...] encounter Miscellaneous Notes Telephone Encounter - Vesta Liriano PA - 11/06/2018 1714 EDT No, she does not need to fast prior to her creatinine blood draw. elephone Encounter - Krissy Villareal - 11/05/2018 1327 EDT Called patient about her upcoming CT and appointment with Vesta Liz. Patient asked if she needs to fast prior to getting blood drawn for creatinine, I told her I would have to ask and get back intouch with her as I did not know. Patient scheduled for Exam ([facility])CT ABDOMEN, PE... scheduled for , 02/04/2019 at 9:30 AM(EDT) for 30 minutes Location is Radiology [facility] ([facility])CT-[facility] Check in at 9am, registration 3rd floor. Prep is push fluids and eat lightly. Patient will need a creatinine done prior Patient scheduled for 1:00pm follow up appointment with Vesta Liz. documented in this encounter Plan of Treatment Upcoming Encounters Date Type Specialty Care Team Description 03/28/2022 Office Visit Gynecologic Oncology Kush Liz PA-C [address] [facility], [facility], [address] [place], [place] [phone] (Wo rk) documented as of this encounter Visit Diagnoses Not on filedocumented in this encounter Care Teams Development Scientist Relationship Specialty Start Date End Date Eve Londono MD PCP - General 04/18/17 [address] [place] [address] documented as of this encounter
--- OUTSIDE RECORDS SUMMARY | 2022-01-25 01:50 | XMS_ITS | Encounter Summary ---
:1945 Author Organization [facility] Address [address] [place] [address] Care Team Providers Name Role Phone Paula Engel FRONT WINDOW CASHIER Primary Care Provider Unavailable Encounter Details Date Type Department Care Team Description 06/26/2016 Hospital Encounter [facility] [phone] 111 [facility], [address] [place] [address] (Wo rk) Social History Tobacco Use Types Packs/Day Years Used Date Never Assessed Sex Assigned at Date Recorded Female 09/25/2021 8:41 EDT documented as of this encounter Medications at Time of Discharge Medication Sig Dispensed Refills Start Date End Date cyanocobalamin (VITAMIN Take 1,000 mcg by 0 B-12) 500 mcg tablet mouth daily. fexofenadine (RADHA) 60 mg Take 180 mg by 0 tablet mouth at bedtime. hydroCHLOROthiazide Take 25 mg by 0 (HYDRODIURIL) 25 mg tablet mouth daily. levothyroxine (SYNTHROID) 25 Take 25 mcg by 0 mcg tablet mouth daily. nystatin-triamcinolone Apply topically 4 0 (MYCOLOG II) cream times daily as needed. Reported on 07/15/2016 acetaminophen (TYLENOL) 500 Take 500 mg by 0 08/11/2018 mg tablet mouth every 6 hours as needed for Pain. calcium-vitamin D (OS-ANABELA D) Take 1 Tab by 0 07/10/2016 500 mg(1,250mg) -200 unit mouth 2 times per tablet daily with breakfast and dinner. docusate sodium (COLACE) 100 Take 100 mg by 0 07/16/2016 mg capsule mouth at bedtime. folic acid (FOLVITE) 1 mg Take 1 mg by 0 07/10/2016 tablet mouth daily. lisinopril (PRINIVIL, Take 20 mg by 0 02/04/2019 ZESTRIL) 10 mg tablet mouth at bedtime. selenium 100 mcg tablet Take 200 mcg by 0 08/11/2018 mouth daily. Reported on 08/12/2016 simvastatin (ZOCOR) 10 mg Take 20 mg by 0 10/17/2016 tablet mouth every evening. documented as of this encounter Discharge Disposition Disposition Code Departure Means Destination Home or Self Assisted documented in this encounter Plan of Treatment Upcoming Encounters Date Type Specialty Care Team Description 03/28/2022 Office Visit Gynecologic Oncology Kush Liz PA-C 111 [facility], [facility], [address] [place], [place] [phone] (Wo rk) documented as of this encounter Visit Diagnoses Not on filedocumented in this encounter Care Teams Mandrel Maker Relationship Specialty Start Date End Date Paula Engel NP PCP - General 06/24/16 04/17/17 documented as of this encounter
--- OUTSIDE RECORDS SUMMARY | 2022-01-25 01:50 | XMS_ITS | Encounter Summary ---
:1945 Author Organization [facility] Address [address] [place] [address] Care Team Providers Name Role Phone Paula Engel NP Primary Care Provider Unavailable Reason for Visit Reason Comments Vaginal Bleeding postmenopausal. Bled recentl y for 5 days with some cramping. Encounter Details Date Type Department Care Team Description 06/26/2016 Initial consult [facility] Alexus Lopez ostmenopausal Women's Services - MD Stephanie bleeding (Primary Dx) [address], [place] [address] Social History Tobacco Use Types Packs/Day Years Used Date Never Assessed Sex Assigned at Date Recorded Female 09/25/2021 8:41 EDT documented as of this encounter Last Filed Vital Signs Vital Sign Reading Time Taken Comments Blood Pressure - - Pulse - - Temperature - - Respiratory Rate - - Oxygen Saturation - - Inhaled Oxygen Concentration - - Weight 99.8 kg (220 lb) 06/26/2016 1420 EST Height 152.4 cm (5') 06/26/2016 1420 EST Body Mass Index 42.97 06/26/2016 1420 EST documented in this encounter Discharge Diagnoses Diagnosis N95.0 Postmenopausal bleeding-N95.0[ICD- 10-CM] documented in this encounter Discharge Disposition Disposition Code Departure Means Destination Auto Discharge documented in this encounter Progress Notes Alexus Lopez MD - 06/26/2016 1300 EST Requesting Provider: Paula Engel Chief Complaint Patient presents with ??? Vaginal Bleeding postmenopausal. Bled recently for 5 days with some cramping. HPI: Patient is a 71 y.o., woman. No LMP recorded. Patient is postmenopausal. Noted pink discharge 2 months ago then 5 days red light spotting recently, no pain or cramps but a dull pelvic ache.No other changes in health, multiple medical issues including obesity, HTN, sleep apnea, high cholesterol. Pt reports no drafter commercial issues in past. She reports regular negative paps until age 66. PMH PSH No past medical history on file. No past surgical history on file. Social History Family History Social History Substance Use Topics ??? Smoking status: Not on file ??? Smokeless tobacco: Not on file ??? Alcohol use Not on file No family history on file. Medications No current outpatient prescriptions on file. Allergies Allergies not on file Review of Systems: Pertinent items are noted in Subjective/HPI Objective/Physical Exam: Height 152.4 cm (60), weight 99.8 kg (220 lb). Exam: General appearance: alert, cooperative Abdomen: soft, non tender, non distended, no masses or hernias External Genitalia: normal vulvar architecture, no lesions Vagina: normal discharge, no lesions Cervix: no lesions, no discharge Endometrial Biopsy Procedure Note Indications: postmenopausal bleeding Procedure Details Urine test was not done. The risks (including infection, bleeding, pain, and uterine perforation) and benefits of the procedure were explained to the patient and Written informed consent was obtained. The patient was placed in the dorsal lithotomy position. Bimanual exam showed the uterus to be in the anteroflexed position. A Padgett's speculum inserted in the vagina, and the cervix prepped with povidone iodine x 3. A sharp tenaculum was applied to the anterior lip of the cervix for stabilization.A Explora Curette was used to sound the uterus to a depth of 7cm and to sample the endometrium. Sample was sent for pathologic examination. Complications: None Transvaginal Pelvic [id number] 1. Thickened heterogenous endometrium concerning for malignancy, less likely hypreplasia or other cause of thickened endomeytrium. There is irregular growths into the myometrium which may be tumor extension verses fibroids. 2. Ovaries without concerning features and consistent with menopausal status Assessment/Plan: Postmenopausal bleeding with a thick irregular endometrium on US which is concerning for an endometrial cancer verses hyperplasia or less likely a polyp. I discussed findings and possibilities with thepatient and performed and embx. I will contact the patient once the results are back. Alexus Lopez MD 06/28/2016 8:31 documented in this encounter Plan of Treatment Upcoming Encounters Date Type Specialty Care Team Description 03/28/2022 Office Visit Gynecologic Oncology Kush Liz PA-C [address] [facility], [facility], [address] [place], [place] [address] (Wo rk) Scheduled Orders Name Type Priority Associated Diagnoses Order S chedule SURGICAL PATHOLOGY- Pathology Routine Postmenopausal Bleedi ng Ordered: 06/26/2016 ORDER ONLY documented as of this encounter Procedures Procedure Name Priority Date/Time Associated Diagnosis Comme nts OUTPATIENT ADD-ON Routine 06/26/2016 14:35 Postmenopausal blee ding Results for this EST procedure are i n the results section. documented in this encounter Results OUTPATIENT ADD-ON (06/26/2016 14:35 EST) Tests to be added CAN YOU ADD [facility] TO LABORATORY BE CCED OR PAGED SERVICES WITH RESULTS OF PATIENTS ENDOMETRIAL BIOPSY. Diagnosis Code SEE RENAN [facility] Number for problems PAGER [phone] [facility] Accession number CALLED [facility] WITH INFO TO ADD ON LABORATORY [facility] A SERVICES CC TO PATHOLOGY TEST Acknowledge ABP Done [facility] Specimen Blood Performing Organization Address City/State/ZIP Code Phon e Number [facility] [address] [place] [address] SERVICES documented in this encounter Visit Diagnoses Diagnosis Postmenopausal bleeding - Primary documented in this encounter Historical Medications This list may reflect changes made after this encounter. Medication Sig Dispensed Refills Start Date End Date nystatin-triamcinolone Apply topically 4 0 (MYCOLOG II) cream times daily as needed. Reported on 07/15/2016 cyanocobalamin (VITAMIN Take 1,000 mcg by 0 B-12) 500 mcg tablet mouth daily. levothyroxine (SYNTHROID) 25 Take 25 mcg by 0 mcg tablet mouth daily. hydroCHLOROthiazide Take 25 mg by 0 (HYDRODIURIL) 25 mg tablet mouth daily. fexofenadine (RADHA) 60 mg Take 180 mg by 0 tablet mouth at bedtime. acetaminophen (TYLENOL) 500 Take 500 mg by 0 08/11/2018 mg tablet mouth every 6 hours as needed for Pain. selenium 100 mcg tablet Take 200 mcg by 0 08/11/2018 mouth daily. Reported on 08/12/2016 folic acid (FOLVITE) 1 mg Take 1 mg by 0 07/10/2016 tablet mouth daily. calcium-vitamin D (OS-ANABELA D) Take 1 Tab by 0 07/10/2016 500 mg(1,250mg) -200 unit mouth 2 times per tablet daily with breakfast and dinner. docusate sodium (COLACE) 100 Take 100 mg by 0 07/16/2016 mg capsule mouth at bedtime. simvastatin (ZOCOR) 10 mg Take 20 mg by 0 10/17/2016 tablet mouth every evening. lisinopril (PRINIVIL, Take 20 mg by 0 02/04/2019 ZESTRIL) 10 mg tablet mouth at bedtime. added in this encounter Care Teams Associate Pastor Relationship Specialty Start Date End Date Paula Engel NP PCP - General 06/24/16 04/17/17 documented as of this encounter
--- OUTSIDE RECORDS SUMMARY | 2022-01-25 01:50 | XMS_ITS | Encounter Summary ---
:1945 Author Organization [facility] Address [address] [place] [address] Care Team Providers Name Role Phone Eve Londono MD Primary Care Provider Encounter Details Date Type Department Care Team Description 11/17/2017 Documentation Visit [facility] Waldo Doran MD Pelvic Medicine and [address] [place] [address] - Medical Office [facility], [facility], [facility] [address] [place], [place] [address] [address] [address] [facility] [place] [facility] [place] [address] [phone] Social History Tobacco Use Types Packs/Day Years [...] documented as of this encounter Progress Notes Lia Doran MD - 11/17/2017 1056 EDT At her last visit, she was diagnosed with a anal fissure causing anal pain--she had been restarted on nifedipine cream and miraLAX. 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 She has been doing much better since her last visit in terms of anal pain and bleeding. She denies any further bleeding. She states the pain is about 90% resolved. She did have a hardened bowel movement about a week ago where she held the discomfort, but not as severely as before. She says she got off her regimen of MiraLAX because she developed bronchitis and has been on steroids and antibiotics. To review her history, in 07/15/2106 Roseann underwent a da Freddie-assisted total laparoscopic hysterectomy, bilateral salpingo-oophorectomy, and bilateral sentinel hypogastric lymph node biopsies, Meckel's diverticulectomy because of a preoperative diagnosis of endometrial carcinoma. The final pathologyreport demonstrates that she has a stage IA, grade 1 endometrial adenocarcinoma. Postoperatively, she developed obstruction which it sounds as though it may have been from constipation. She is given many doses of MiraLAX and this resolved. Along with this time she developed severe pain in her rectum which she attributed to hemorrhoids. She has had hemorrhoids for 30 or 40 years. She states that they were much worse following this episode of constipation. She is recently been on fiber lax (psyllium), Dulcolax, Colace, and a probiotic.This is helped her to have softer stool on an every day to every other day basis. She denies blood in the stool or or streaking the stool. The severity of the pain has improved with rectal care which is a topical lidocaine as well as with softening her stool. She denies fecal incontinence She also states that she has a small amount of gas and occasional malodorous drainage from her vaginal os. She states she has had this for 50 years since the of one of her children. She states that it is no worse following her recent surgery. She is never had a history of diverticulitis. Prior colonoscopy: December 2015--[facility] for personal history of polyps done by Dr. Conroy--rectosigmoid (4) polypectomy with hyperplastic polyps, ascending colon polypectomy (2) with fragments of tubular adenoma and colonic mucosa with no significant abnormality, transverse colon polypectomy (1) tubular adenoma. Random right colon biopsy with colonic mucosal, normal limits. documented in this encounter Plan of Treatment Upcoming Encounters Date Type Specialty Care Team Description 03/28/2022 Office Visit Gynecologic Oncology Kush Liz PA-C [address] [place] [address], [facility] [place], [address] [place], [place] [address] (Wo rk) documented as of this encounter Visit Diagnoses Not on filedocumented in this encounter Care Teams Athletic Coordinator Relationship Specialty Start Date End Date Eve Londono MD PCP - General 04/18/[address] [place] [address] documented as of this encounter
--- OUTSIDE RECORDS SUMMARY | 2022-01-25 01:50 | XMS_ITS | Encounter Summary ---
:1945 Author Organization [facility] Address [address] [place] [address] Care Team Providers Name Role Phone Unknown, Provider Primary Care Provider Encounter Details Date Type Department Care Team Description 06/29/2009 Results Only [facility] Nic العلي MD Laboratory Services - [address] [facility] [place] [address] [address] [facility] [place] [address] [phone] Social History Tobacco Use Types Packs/Day Years Used Date Never Assessed Sex Assigned at Date Recorded Female 09/25/2021 8:41 EDT documented as of this encounter Plan of Treatment Upcoming Encounters Date Type Specialty Care Team Description 03/28/2022 Office Visit Gynecologic Oncology Kush Liz PA-C [address] [facility], [address] [place], [place] [address] (Wo rk) documented as of this encounter Procedures Procedure Name Priority Date/Time Associated Comments Diagnosis HPV DETECTION, HIGH Routine 06/29/2009 10:15 Resu lts for this RISK TYPES EST procedure are i n the results section. CYTOPATHOLOGY Routine 06/29/2009 0:00 Results for this EST procedure are i n the results section. documented in this encounter Results HUMAN PAPILLOMA VIRUS DNA TEST (06/29/2009 10:15 EST) Specimen Description Cervix, ThinPrep [facility] [place] [facility] vial Result Negative for HPV [facility] types 16, 18, 31, 33, 35, 39, 45, 51, 52, 56, 58, 59, and 68. Report Status Final [facility] 07/05/2009 Specimen Performing Organization Address City/State/ZIP Code Phon e Number [facility] [address] [place] [address] SERVICES [facility] [address] [place] [address] CYTOPATHOLOGY (06/29/2009 0:00 EST) Pathologist [facility] Pathology Report: CYTOPATHOLOGY REPORT ? [facility] ? LAB Reports generated via [employer] interface contain original data; ? however they are lacking the format of the original report. ? Caution should be taken when reading/interpreting unformatted reports. ? Name: ? MADDIE WILCOX ? Accession #: ? [id number] ? : ? 1945 (Age: 64) ??F ?Collect Date: ? 06/29/2009 ? Location: ? [facility] ? Receive Date: ? 06/30/2009 ? Provider: ?ARNOLDO TONY MAN MD ? Copy to: ? Specimen/Source: ? Pap Test, Cervix/Endocervix, ThinPrep Imaging System ? with manual evaluation ? Last Menstrual Period: ? Menstrual/ Status: ? Post Menopausal ? Other: ? HPVDX - HPV testing requeste d regardless of diagnosis on current ThinPrep Pap ?? test. ? SPECIMEN ADEQUACY ? Satisfactory for Eval uation ? - assessment of transformati on zone component not applicable ( e.g. atrophy, ? vaginal sample, hysterectomy ) ? GENERAL CATEGORIZATION ? Negative for Intraepi thelial Lesion or Malignancy ? Document reviewed and electr onically signed by: ? Ade Chapman, CT( CP)(IAC) ? Report Date: ??03/16/ 2010 09:15 ? End of Report ? Specimen Performing Organization Address City/State/ZIP Code Phon e Number [facility] [address] [place] [id number] SERVICES [facility] [address] [place] [address] documented in this encounter Visit Diagnoses Not on filedocumented in this encounter Care Teams Maintenance Carpenter Relationship Specialty Start Date End Date Unknown, Provider, PCP - General 04/01/09 documented as of this encounter
--- OUTSIDE RECORDS SUMMARY | 2022-01-25 01:50 | XMS_ITS | Encounter Summary ---
:[address] [facility] Address [address] [place] [address] Care Team Providers Name Role Phone Paula Engel NP Primary Care Provider Unavailable Reason for Referral Cardiology (STAT) - Closed Specialty Diagnoses / Procedures Referred By Contact Refer red To Contact Diagnoses Endometrial cancer ([facility]) ([facility]) Preop testing PMB (postmenopausal bleeding) Will Banegas MD Procedures EKG 12-LEAD [address] [place] [address] 4 [place] [id number] Referral ID Status Reason Start Date Expiration Date Visits Requ ested Visits Authorized [id number] Closed 07/04/2016 1 1 Reason for Visit Reason Comments Advice Only Consult (Routine) - Specialty Report Received Specialty Diagnoses / Procedures Referred By Contact Refer red To Contact Gynecologic Oncology Diagnoses Endometrial cancer ([facility]) ([facility]) Alexus Lopez [employer] [facility] On[facility] [address] Phone: [facility] 4 [place] [address] Referral ID Status Reason Start Expiration Visits Visits Date Date Requested Authorized [id number] Specialty Specialty 07/02/2016 1 1 Report Services Received Required Encounter Details Date Type Department Care Team Description 07/04/2016 Office Visit [facility] Will Banegas MD Endometrial cancer ([facility]) (Primary Dx ); Gynecologic Oncology [address] Preop testing; - [facility] [address] PMB (postmenopausal bleeding) [address] [place] [address] [address], [place] [id number] (Wo rk) Social History Tobacco Use Types Packs/Day Years Used Date Never Smoker Smokeless Tobacco: Never Used Alcohol Use Standard Drinks/Week Comments No 0 (1 standard drink = 0.6 oz pure alcoho l) Sex Assigned at Date Recorded Female 09/25/2021 8:41 EDT documented as of this encounter Last Filed Vital Signs Vital Sign Reading Time Taken Comments Blood Pressure 130/80 07/04/2016 1241 EDT Pulse - - Temperature - - Respiratory Rate - - Oxygen Saturation - - Inhaled Oxygen Concentration - - Weight 102.1 kg (225 lb) 07/04/2016 1241 EDT Height 152.4 cm (5') 07/04/2016 1241 EDT Body Mass Index 43.94 07/04/2016 1241 EDT documented in this encounter Discharge Diagnoses Diagnosis C54.1 Malignant neoplasm of endometrium- C54.1[ICD-10-CM] Z01.818 Encounter for other preprocedura l examination-Z01.818[ICD-10-CM] N95.0 Postmenopausal bleeding-N95.0[ICD- 10-CM] documented in this encounter Patient Instructions Patient InstructionsLeti Lima RN - 07/04/2016 13:00 EDT You are scheduled for surgery on: July 15 CT scan is scheduled on 07/11/16 Please check in at registration on Level 3 of the [facility] at 7:00am Preoperative Home Instructions 1. The day before your surgery, eat normally and please make sure you stay well hydrated by drinkingplenty of clear liquids. 2. NO solid foods or liquids other than clears after midnight. You may have clear liquids ONLY up to 4 hours prior to your arrival time. Acceptable clear liquids include-- -Water, Gatorade or Pedialyte -Coffee or tea, black and sweetened (NO creamer, milk or dairy) -Apple or cranberry juice -Jello -Non alcoholic carbonated beverages like los ghanshyam or sprite 3. If you take prescription medications, you will be advised by the pre op nurses which medications you may take the morning of surgery. This will occur during you pre op telephone pre-screen. 4. On the day of surgery, NO candy, gum or mints, etc.! 5. No jewelry! This includes wedding bands and any body piercing, or any other valuables. 6. No make-up, No fingernail czech, No contact lenses. Gel nails are acceptable [...] PLEASE call the office for further advice. Call [phone] if you have questions. Please have your prescription mediation card and means by paying for any prescription medication youmay be discharged with. For your convenience [facility]. documented in this encounter Discharge Disposition Disposition Code Departure Means Destination Auto Discharge documented in this encounter Progress Notes Will Banegas MD - 07/04/2016 1300 EDT Subjective: Thank you very much for requesting a consult on your patient, Roseann Wilcox, because of a recent endometrial biopsy which demonstrates grade 1 endometrial carcinoma. As you recall, Roseann is a 71-year-old female whose last menstrual period was in 1987. She stated that recently she started having some vaginal spotting with no associated symptoms such as urinary, GI, cardiac or respiratory. She also denies any vaginal clots. Recent endometrial biopsy demonstrates grade 1 endometrial carcinoma. She presents today for evaluation. PAST OB HISTORY: One normal spontaneous vaginal delivery. 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 She also stated that in 1987 she had an exploratory laparotomy for an abdominal myomectomy. She was also told that she has some fibroids that are closeto important blood vessels. In 1982, she had a bilateral tubal ligation and appendectomy. Review of Systems: She denies any shortness of breath or chest pain with ambulation or rest. Remainder of 10-point review of systems is negative. She has no family history of malignancy. Menstrual History: OB History No data available No LMP recorded. Patient is postmenopausal. Past Medical History: Diagnosis Date ??? High cholesterol ??? HTN (hypertension) ??? Obesity ??? Sleep apnea History reviewed. No pertinent surgical history. History reviewed. No pertinent family history. Current Outpatient Prescriptions Medication Sig Dispense Refill ??? acetaminophen (TYLENOL) 500 mg tablet Take 500 mg by mouth every 6 hours as needed for Pain. ??? calcium-vitamin D (OS-ANABELA D) 500 mg(1,250mg) -200 unit per tablet Take 1 Tab by mouth 2 times daily with breakfast and dinner. ??? cyanocobalamin (VITAMIN B-12) 500 mcg tablet Take 500 mcg by mouth daily. ??? docusate sodium (COLACE) 100 mg capsule Take 100 mg by mouth 2 times daily. ??? fexofenadine (RADHA) 60 mg tablet Take 60 mg by mouth daily. ??? folic acid (FOLVITE) 1 mg tablet Take 1 mg by mouth daily. ??? hydroCHLOROthiazide (HYDRODIURIL) 25 mg tablet Take 25 mg by mouth daily. ??? levothyroxine (SYNTHROID) 25 mcg tablet Take 25 mcg by mouth daily. ??? lisinopril (PRINIVIL, ZESTRIL) 10 mg tablet Take 20 mg by mouth daily. ??? nystatin-triamcinolone (MYCOLOG II) cream Apply topically 4 times daily. Reported on 07/04/2016 ??? selenium 100 mcg tablet Take 200 mcg by mouth daily. ??? simvastatin (ZOCOR) 10 mg tablet Take 20 mg by mouth every evening. No current facility-administered medications for this visit. Allergies Allergen Reactions ??? Aspirin Hives convulsions ??? Enalapril Leg cramps ??? Latex Rash redness Social History Social History ??? Marital status: Spouse name: N/A ??? Number of children: N/A ??? Years of education: N/A Occupational History ??? Not on file. Social History Main Topics ??? Smoking status: Never Smoker ??? Smokeless tobacco: Never Used ??? Alcohol use No ??? Drug use: Not on file ??? Sexual activity: Not on file Other Topics Concern ??? Not on file Social History Narrative Review of Systems: Pertinent items are noted in Subjective/HPI Objective: Visit Vitals ??? BP 130/80 ??? Ht 152.4 cm (60) ??? Wt (!) 102.1 kg (225 lb) ??? BMI 43.94 kg/m2 Pt is A&Ox3 and in NAD HEENT: NC/AT Skin: no obvious rashes or ulcers Heme: no obvious bruising Neck: no cervical or supra-clavicular lymphadenopathy Heart: S1S2 Lungs: Clear; no wheezing Abdomen: soft, NT,ND, no rebound or guarding, no hepatosplenomegaly Ext: no CCE Assessment/Plan: Today, I explained to Roseann that she has been diagnosed with endometrial cancer. The treatment options discussed with her are as follows: 1) do nothing, which I do not recommend. 2) Surgical treatment. I explained that she would undergo a hysterectomy, removal of her ovaries andlymph nodes. Based on her final pathology report, I will decide whether she would need any post-op adjuvant (chemo and/or RT) therapy. 3) RT. Rationale (and risk/benefits) for primary radiation therapy was discussed with her. 4) Chemotherapy/hormonal therapy.Rationale (and risk/benefits) for primary chemotherapy or hormonal therapy was discussed with her. After reviewing the treatment options, Roseann states that she would like to proceed with surgical therapy. Today, I will get preop clearance for her. Informed consent was also obtained for a da Freddie-assisted total laparoscopic hysterectomy, bilateral salpingo-oophorectomy and surgical staging. Risks, benefits of surgery were reviewed. Questions were answered and informed consent was obtained. As always, I thank you very much for allowing me to participate in the care of your patient. I will keep you informed of her progress. Sincerely and Respectfully, Will Banegas MD Director of the Gynecologic Oncology Program [facility] documented in this encounter Plan of Treatment Upcoming Encounters Date Type Specialty Care Team Description 03/28/2022 Office Visit Gynecologic Oncology Kush Liz PA-C [address] [facility], Level [address] [place] [address] (Wo rk) documented as of this encounter Procedures Procedure Name Priority Date/Time Associated Diagnosis Comme nts CT ABDOMEN, PELVIS Routine 07/11/2016 8:52 EDT Re sults for this W CONTRAST procedure are i n the results section. ECG REPORT - 07/08/2016 9:41 EDT SCANNED EKG 12-LEAD Routine 07/04/2016 14:17 Endometrial cancer Resul ts for this EDT ([facility]) procedure are in Preop testing the results PMB (postmenopausal section. bleeding) documented in this encounter Results CT ABDOMEN, PELVIS W CONTRAST (07/11/2016 8:52 EDT) Anatomical Region Laterality Modality Other Specimen Narrative [facility] - 07/12/2016 10:[address] ABDOMEN, PELVIS W CONTRAST ??07/11/2016 8:52 AM Signs and Symptoms/Comments: ?? C54.1-Malignant neoplasm of endometrium- ICD-10 Z01.818-Encounter for other preprocedural [id number]-[id number]; endometrial cancer Technique: CT of the abdomen and pelvis was performed following the administration intravenous contrast; cor onal and sagittal multiplanar reconstructions generated. Comparison: Pelvic ultrasound June 26 Findings: Lower chest: Mild dependent atelectasis of the lung bases, right greater than left. No nodules. Hepatobiliary: The liver shows decreased attenuation, but otherwise enhances normally with no focal masses o r lesions. A small cyst is present in the right hepatic lobe. No in tra or extrahepatic biliary ductal dilatation. Proximal common bile duct at upper limits of normal. Spleen, pancreas, adrenal glands: Within normal limits. Kidneys, ureters, bladder: The kidneys e nhance symmetrically with no focal masses. Bilateral simple cysts are present. Ureters of normal course and caliber. The urinary bladder is unremarkable. Uterus, ovaries: There is redemonstratio n of a thickened endometrium, measuring approximately 2 c m, and hypodense intramural mass, concordant with findings from outs [facility] pelvic ultrasound report. There is no extrauterine extensi on of the mass. The ovaries are unremarkable. No adnexal masses. Bowel: No wall thickening, edema or obst ruction. A few noninflamed diverticula are present, notably within the transverse colon. Peritoneal cavity / Subperitoneal space: Few punctate foci of air are present in the pelvis anterior to th e right sacrum (axial 194-203). No drainable fluid collections . Lymphovascular: Multiple nonenlarged mes enteric and periaortic lymph nodes; no pathologically enlarged lymph nodes identified. Abdominal wall: No hernias. Musculoskeletal: No lytic or blastic oss eous structures. Mild degenerative changes. Impression: 1. No evidence of metastatic disease in the abdomen or pelvis. 2. Thickened endometrial stripe and hypo dense uterine mass concordant with outside pelvic ultrasoun d from June 26, 2016. No extrauterine extension of the mass is pr esent. Please see dedicated report for additional details. 3. Hepatosteatosis. 4. Simple hepatic cyst. 5. Bilateral simple renal cysts. 6. Diverticulosis with no evidence of di verticulitis. 7. Mild degenerative disease of the spin e. I have personally reviewed the images an d the above interpretation and agree with the findings. Procedure Note Edgardo Pisano MD - 07/12/2016 CT ABDOMEN, PELVIS W CONTRAST 07/11/2016 8:52 AM Signs and Symptoms/Comments: C54.1-Malignant neoplasm of endometrium- ICD-10 Z01.818-Encounter for other preprocedural [id number]-[id number]; endometrial cancer Technique: CT of the abdomen and pelvis was performed following the administration intravenous contrast; cor onal and sagittal multiplanar reconstructions generated. Comparison: Pelvic ultrasound June 26 017 Findings: Lower chest: Mild dependent atelectasis of the lung bases, right greater than left. No nodules. Hepatobiliary: The liver shows decreased attenuation, but otherwise enhances normally with no focal masses o r lesions. A small cyst is present in the right hepatic lobe. No in tra or extrahepatic biliary ductal dilatation. Proximal common bile duct at upper limits of normal. Spleen, pancreas, adrenal glands: Within normal limits. Kidneys, ureters, bladder: The kidneys e nhance symmetrically with no focal masses. Bilateral simple cysts are present. Ureters of normal course and caliber. The urinary bladder is unremarkable. Uterus, ovaries: There is redemonstratio n of a thickened endometrium, measuring approximately 2 c m, and hypodense intramural mass, concordant with findings from outs [facility] pelvic ultrasound report. There is no extrauterine extensi on of the mass. The ovaries are unremarkable. No adnexal masses. Bowel: No wall thickening, edema or obst ruction. A few noninflamed diverticula are present, notably within the transverse colon. Peritoneal cavity / Subperitoneal space: Few punctate foci of air are present in the pelvis anterior to th e right sacrum (axial 194-203). No drainable fluid collections . Lymphovascular: Multiple nonenlarged mes enteric and periaortic lymph nodes; no pathologically enlarged lymph nodes identified. Abdominal wall: No hernias. Musculoskeletal: No lytic or blastic oss eous structures. Mild degenerative changes. Impression: 1. No evidence of metastatic disease in the abdomen or pelvis. 2. Thickened endometrial stripe and hypo dense uterine mass concordant with outside pelvic ultrasoun d from June 26, 2016. No extrauterine extension of the mass is pr esent. Please see dedicated report for additional details. 3. Hepatosteatosis. 4. Simple hepatic cyst. 5. Bilateral simple renal cysts. 6. Diverticulosis with no evidence of di verticulitis. 7. Mild degenerative disease of the spin e. I have personally reviewed the images an d the above interpretation and agree with the findings. Performing Organization Address City/State/ZIP Code Phon e Number [facility] (ABNORMAL) COMPREHENSIVE METABOLIC PANEL (CMP) (07/04/2016 15:03 EDT) Potassium 3.9 3.5 - 5.0 [facility] mEq/L [facility] Sodium 141 136 - 145 [facility] mEq/L [facility] Chloride 101 96 - 110 [facility] mEq/L [facility] CO2 30Comment: Note new 22 - 32 [facility] reference range mEq/L [facility] 02/06/16 SERVICES Total Alkaline 54 38 - 126 U/L [facility] Phosphatase [facility] Bilirubin, Total <0.5 <1.4 mg/dl [facility] AST 30 15 - 46 U/L [facility] ALT 53 (H) <53 U/L [facility] Albumin 4.6 3.4 - 4.9 [facility] g/dl [facility] Total Protein 7.1 6.3 - 8.2 [facility] g/dl [facility] Creatinine 0.76 0.52 - 1.04 [facility] mg/dl [facility] GFR, Calculated 80 >60 [facility] Comment: ml/min/1.73m [facility] eGFR calculated using CKD-EPI equation for 2 SERVICES non Americans. Multiply eGFR by 1.16 for Americans. BUN 12 10 - 26 [facility] mg/dl [facility] Calcium 10.0 8.5 - 10.5 [facility] mg/dl [facility] Calculated Calcium 9.5 8.5 - 10.5 [facility] Comment: mg/dl [facility] Note new formula for calculation SERVICES in use 01/24/2016 Glucose, Serum 87 70 - 100 [facility] mg/dl [facility] Fasting? No [facility] Specimen Blood specimen (specimen) - Blood Performing Organization Address City/State/ZIP Code Phon e Number [facility] [address] [place] [address] SERVICES PTT (07/04/2016 15:03 EDT) Pathologist Sig nature PTT 30 26 - 37 [facility] LABORATOR Y SERVICES Specimen Blood specimen (specimen) - Blood Performing Organization Address City/State/ZIP Code Phon e Number [facility] [address] [place] [phone] SERVICES PROTIME (07/04/2016 15:03 EDT) Pro Time 12.7 10.3 - 13.1 [facility] secs LABORATORY SERVICES I.N.R. 1.1 0.9 - 1.1 [facility] Comment: Ratio LABORATORY SERVICES Moderate Intensity Coumadin INR = 2.0-3.0 Adjustments in anticoagulant therapy dose should be based upon the INR and NOT the Pro Time. Specimen Blood specimen (specimen) - Blood Performing Organization Address City/[facility]/ZIP Code Phon e Number [facility] [address] [place] [address] SERVICES PRE-OP BLOOD BANK DRAW (07/04/2016 15:03 EDT) Pre-Op Blood Bank SPECIMEN RECEIVED [facility] Lab Draw ACCEPTABLE LABORATORY SERVICES Specimen Blood Performing Organization Address City/[facility] Phon e Number [facility] [address] [place] [address] SERVICES (ABNORMAL) HEMAGRAM (07/04/2016 15:03 EDT) Pathologist Sig nature WBC 7.56 4.0 - 12.4 K/cmm [facility] SERVICES RBC 4.07 3.86 - 5.04 M/cmm [facility] SERVICES Hemoglobin 12.2 11.6 - 15.2 gm/dl [facility] SERVICES HCT 37.1 34.9 - 44.4 % [facility] SERVICES MCV 91 81 - 98 fl [facility] SERVICES MCH 30.0 26.7 - 33.3 pg [facility] SERVICES MCHC 32.9 32.1 - 35.9 gm/dl [facility] SERVICES RDW-CV 14.8 (H) 11.7 - 14.6 % [facility] SERVICES RDW-SD 49.8 37.6 - 50.3 fl [facility]ORY SERVICES PLT 258 141 - 377 K/cmm [facility] SERVICES MPV 9.9 9.5 - 12.7 fl [facility] SERVICES Specimen Blood specimen (specimen) - Blood Performing Organization Address City/[facility]/ZIP Code Phon e Number [facility] [address] [place] [address] SERVICES EKG 12-LEAD (07/04/2016 14:17 EDT) Specimen Narrative [facility] EKG - 07/05/2016 10:0 9 EDT ? [facility] ? Test Date: ?2016-07-04 Pat Name: ? ROSEANN WILCOX ?Department: ?? OP CARD TEST ? Room: ? Gender: ? 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 Requested By: CLINT TRAN Order Number: [id number] ?Reading MD: ?? NATHANIEL WINGET MD ? Measurements Intervals ?Blair ? Rate: ? 63 ? P: ?21 CO: ? 188 ?QRS: ?-25 QRSD: ? 123 ?T: ?34 QT: ? 404 ? QTc: ?414 ? Interpretive Statements SINUS RHYTHM MINIMAL VOLTAGE CRITERIA FOR LVH, CONSID ER NORMAL VARIANT Possible LATERAL MYOCARDIAL INFARCTION, OF INDETERMINATE AGE No previous ECG available for comparison I reviewed the tracing and have either a greed or edited the findings in this report. Electronically Signed On 10:09:41 EDT by NATHANIEL BAKER MD. 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 Electronically Signed On 10:09:41 EDT by NATHANIEL BAKER MD. Performing Organization Address City/State/ZIP Code Phon e Number [facility] EKG documented in this encounter Visit Diagnoses Diagnosis Endometrial cancer ([facility]) ([facility]) - [facility] Malignant neoplasm of corpus uteri, exce pt isthmus Preop testing Preoperative examination, unspecified PMB (postmenopausal bleeding) Postmenopausal bleeding documented in this encounter Orders Procedures Count Last Ordered Date First Ordered Date ECG REPORT - SCANNED 1 07/08/2016 documented in this encounter Care Teams Magisterial District Judge Relationship Specialty Start Date End Date Abair, Paula, WATER RESOURCE CONSULTANT PCP - General 06/24/16 04/17/17 documented as of this encounter
--- OUTSIDE RECORDS SUMMARY | 2022-01-25 01:50 | XMS_ITS | Encounter Summary ---
:1945 Author Organization [facility] Address [address] [place] [address] Care Team Providers Name Role Phone Eve Londono MD Primary Care Provider Reason for Visit Reason Comments Follow-up surveillance endometrial can cer Encounter Details Date Type Department Care Team Description 10/28/2017 Office Visit [facility] Women[facility] - HUMAIRA Zeng endometrial cancer Main [address] (Primary Dx) [address] [phone] [place], [address] [place] [address] (Wo rk) Social History Tobacco Use Types Packs/Day Years Used Date Never Smoker Smokeless Tobacco: Never Used Alcohol Use Standard Drinks/Week Comments No 0 (1 standard drink = 0.6 oz pure alcoho l) Sex Assigned at Date Recorded Female 09/25/2021 8:41 EDT documented as of this encounter Last Filed Vital Signs Vital Sign Reading Time Taken Comments Blood Pressure 122/76 10/28/2017 1050 EDT Pulse - - Temperature - - Respiratory Rate - - Oxygen Saturation - - Inhaled Oxygen Concentration - - Weight 97.5 kg (215 lb) 10/28/2017 1050 EDT Height 152.4 cm (5') 10/28/2017 1050 EDT Body Mass Index 41.99 10/28/2017 1050 EDT documented in this encounter Functional Status [...] encounter Progress Notes Vesta Liz PA - 10/28/2017 1100 EDT Subjective: Patient ID: Roseann Wilcox is an 72 y.o. female. Chief Complaint Patient presents with ??? Follow-up surveillance endometrial cancer HPI Roseann Wilcox is a 72 y.o. woman who on 07/15/2106 underwent a da Freddie- assisted total laparoscopichysterectomy, bilateral salpingo-oophorectomy, and bilateral sentinel hypogastric lymph node biopsies because of a preoperative diagnosis of endometrial carcinoma. Of note, at the time of her surgery she also underwent a laparoscopic Meckel's diverticulectomy because tubular structure was noted to be adherent from the ileocecal region to the right aspect of her uterus. The final pathology report demonstrates that she has a stage IA, grade 1 endometrial adenocarcinoma,there was scooby evidence of lymphovascular space involvement. She was last seen [address] Banegas for a surveillance visit, and transitions to my survivorship clinic today. Today, she states that she feels well, and specifically denies any changes in her weight, chest pain, shortness of breath, nausea or vomiting, abdominal pain or distension, changes in her bowel or bladder patterns, or vaginal bleeding, discharge, itching or irritation. Of note, she is following up with Dr Lia Doran because she had a complaint of anal pain and was found to have anal fissures. She is currently managed with nifedipine cream and also takes MiraLax on a regular basis to help her with her constipation. She has a longstanding history of constipation, but nothing now is new or different from her past history. ?? Patient Active Problem List Diagnosis ??? Endometrial cancer (HCC-CMS) Past Medical History: Diagnosis Date ??? High cholesterol ??? HTN (hypertension) ??? Obesity ??? Sleep apnea No past surgical history on file. No family history on file. Social Social History Substance Use Topics ??? Smoking status: Never Smoker ??? Smokeless tobacco: Never Used ??? Alcohol use No Current Outpatient Prescriptions on File Prior to Visit Medication Sig [...] mg tablet Take 60 mg by mouth at bedtime. ??? fluticasone (FLONASE) 50 mcg/actuation nasal spray Instill 100 mcg into both nostrils as needed.Reported on 07/15/2016 ??? folic acid (FOLVITE) 400 mcg tablet Take 400 mcg by mouth daily. ??? hydroCHLOROthiazide (HYDRODIURIL) [...] Take 500 mg by mouth daily. ??? Miscellaneous Medication - See Admin Instructions Nifedipine 0.2% ointment 30 g. Please compoundfor patient. Apply twice daily and after bowel movements. 1 Each 2 ??? mupirocin (BACTROBAN) 2 % ointment Apply topically as needed. ??? nystatin-triamcinolone (MYCOLOG II) cream Apply topically 4 times daily as needed. Reported on 07/15/2016 ??? Potassium Gluconate 595 mg (99 mg) [...] Enalapril Leg cramps ??? Latex Rash redness Review of Systems - See HPI Objective: BP 122/76 Ht 152.4 cm (60) Wt 97.5 kg (215 lb) BMI 41.99 kg/m2 Physical Exam Constitutional: She is oriented to [...] injury on the left labia. No vaginal discharge found. Speculum exam reveals [...] and thought content normal. Assessment: History of stage 1A grade 1 endometrial cancer, doing well and ALFREDO. Plan: There are no diagnoses linked to this encounter. Today, I discussed with Roseann that she is without evidence of disease recurrence on clinical exam, and she is without worrisome symptoms. Per the most recent SGO guidelines, I did not obtain a vaginalpap smear, as there were no concerning lesions on her vaginal exam. As she is now over a year out from her initial diagnosis, she will follow up for her next surveillance visit in 12 months time, we discussed the signs and symptoms that would be concerning for recurrent endometrial cancer (vaginal bleeding, abdominal pain, pressure, bloating or changes in bowel or bladder habits), and she knows to call our office for sooner evaluation if she should experience any symptoms such as these. Today, Roseann was also provided also with her endometrial cancer treatment summary and survivorship care plan. In this, we outlined her treatment, which consisted of a laparoscopic hysterectomy, bilateral salpingo-oophorectomy and lymph node dissection. . We discussed the potential long-term side effects of these treatments as well as the symptoms that she should be aware of that could be indicative of recurrence. We outlined our followup plan to see her back every 6 months for 1 year and then annually after that. This survivorship care plan was reviewed with her in the clinic and forwarded to her primary care provider as well. SUJEY Worrell documented in this encounter Plan of Treatment Upcoming Encounters Date Type Specialty Care Team Description 03/28/2022 Office Visit Gynecologic Oncology Kush Liz PA-C [address] [facility] [place] [facility], [facility], [facility] [address] [place], [place] [phone] (Wo rk) documented as of this encounter Visit Diagnoses Diagnosis History of endometrial cancer - Primary Personal history of malignant neoplasm o f other parts of uterus documented in this encounter Care Teams Doll Dresser Relationship Specialty Start Date End Date Eve Londono MD PCP - General 04/18/17 [address] [place] [address] documented as of this encounter
--- OUTSIDE RECORDS SUMMARY | 2022-01-25 01:50 | XMS_ITS | Encounter Summary ---
:1945 Author Organization [facility] Address [address] [place] [address] Care Team Providers Name Role Phone Paula Engel NP Primary Care Provider Unavailable Reason for Visit Reason Onset Date Comments Post-OP Follow Up 07/18/2016 07/15/16 Da Freddie-ass isted total laparoscopic hysterectomy, bilate ral salpingo-oophorectomy injection, injection of ICG dye , bilateral hypogastric sentinel lymph node biopsy an d cystoscopy. Encounter Details Date Type Department Care Team Description 07/18/2016 Telephone [facility] Meaghan Schuler RN Post-OP Follow Up Gynecologic Oncology - [address] [place] [address] ( [facility] [address] Freddie-assisted total [address] [place] [address] [place] [address] hysterectomy, bilateral salpingo-oophor ectomy injection, inje ction of ICG dye, dior ateral hypogastric sen tinel lymph node biop sy and cystoscopy. ) Social History Tobacco Use Types Packs/Day Years [...] Telephone Encounter - Meaghan Schuler RN - 07/18/2016 4269 EDT Call to patient s/p Da Freddie-assisted total laparoscopic hysterectomy, bilateral salpingo-oophorectomy injection, injection of ICG dye, bilateral hypogastric sentinel lymph node biopsy and cystoscopy 07/15/16. Pain control: Roseann states she is using the oxycodone q 4h, and tylenol as well. States she cannot use ibuprofen. Recommended she start to wean off the oxycodone, and perhaps only use in AM and PM. Elimination: +Flatus - BM; she is using the colace. Recommend she try the Dulcolax at this time. Intake: taking small amounts and tolerating well. Fever: afebrile Incisional sites: clean/dry/intact F/U appointment: scheduled Pt advised to call in the interim with questions or concerns. documented in this encounter Plan of Treatment Upcoming Encounters Date Type Specialty Care Team Description 03/28/2022 Office Visit Gynecologic Oncology Kush Liz PA-C [address] [facility] venue [facility], [facility], [address] [place], [place] [address] (Wo rk) documented as of this encounter Visit Diagnoses Not on filedocumented in this encounter Care Teams Steel Rule Die Maker Apprentice Relationship Specialty Start Date End Date Paula Engel NP PCP - General 06/24/16 04/17/17 documented as of this encounter
--- OUTSIDE RECORDS SUMMARY | 2022-01-25 01:50 | XMS_ITS | Encounter Summary ---
:1945 Author Organization [facility] Address [address] [place] [address] Care Team Providers Name Role Phone Eve Londono MD Primary Care Provider Reason for Visit Reason Comments New Patient Visit hems Consult (Routine/Next Available) - Specialty Report Received Specialty Diagnoses / Procedures Referred By Contact Refer red To Contact General Surgery Diagnoses Hemorrhoids, unspecified hemorrhoid type Will Banegas MD Evans, Krista E, MD [address] [place] [address] elizabeth Dorsey, [address], [address] [place] [phone] Fax: Referral ID Status Reason Start Expiration Visits Visits Date Date Requested Authorized [id number] Specialty Specialty 04/23/2017 1 1 Report Services Received Required Encounter Details Date Type Department Care Team Description 08/26/2017 Office Visit [facility] Mary Doran MD Anal fissure (Primary General Surgery - [address] [place] [address]) [facility] [address] [place] [address] [address], [place] [address] (Wo rk) Social History Tobacco Use Types Packs/Day Years Used Date Never Smoker Smokeless Tobacco: Never Used Alcohol Use Standard Drinks/Week Comments No 0 (1 standard drink = 0.6 oz pure alcoho l) Sex Assigned at Date Recorded Female 09/25/2021 8:41 EDT documented as of this encounter Last Filed Vital Signs Vital Sign Reading Time Taken Comments Blood Pressure 134/76 08/26/2017 1543 EDT Pulse 88 08/26/2017 1543 EDT Temperature - - Respiratory Rate 18 08/26/2017 1543 EDT Oxygen Saturation - - Inhaled Oxygen Concentration - - Weight 98.2 kg (216 lb 8 oz) 08/26/2017 1543 EDT Height 152.4 cm (5') 08/26/2017 1543 EDT Body Mass Index 42.28 08/26/2017 1543 EDT documented in this encounter Functional Status [...] as of this encounter Discharge Diagnoses Diagnosis K60.2 Anal fissure, unspecified-K60.2[IC D-10-CM] documented in this encounter Patient Instructions Patient InstructionsEvMary hussein MD - 08/26/2017 16:00 EDT Goal is 30gms of fiber a day. Maintain a high fiber diet (bran cereals, whole grain breads, lots of fruits and vegetables). See below for fiber conent in different foods. Drink lots of water (at least 2L) throughout the day. Consider starting fiber supplementation--I would use the powder version rather than the pills: Benefiber (wheat dextran) 2 teaspoons, 1-3 times a day in a large glass of water. If too crampy/bloated, try synthetic fiber supplement (Beneful, Citrucel, FiberCon etc.) titrate to a toothpaste consistency bowel movement If stools are still hardened, use colace (over the counter stool softener) 100 mg 1-2 times daily If still having troubles with hardened stool, try miraLAX 1 cap 1-2 times daily Try putting your feet up on a 6-8inch stool (squatty potty). This may help you empty your rectum as it will straighten out your anorectal angle. documented in this encounter Ordered Prescriptions Prescription Sig Dispensed Refills Start Date End Date Miscellaneous Medication Nifedipine 0.2% 1 Each 2 201711/18/2017 - See Admin Instructions ointment 30 g. Please compound for patient. Apply twice daily and after bowel movements. documented in this encounter Discharge Disposition Disposition Code Departure Means Destination Auto Discharge documented in this encounter Progress Notes Mary Doran MD - 08/26/2017 1600 EDT Colorectal Surgery Chief Complaint: hemorrhoids HPI: Patient is a 72 y.o. female being seen at the request of Will Banegas MD for evaluation of hemorrhoids. 07/15/2106 Roseann underwent a da Freddie-assisted total laparoscopic hysterectomy, bilateral salpingo-oophorectomy, and bilateral sentinel hypogastric lymph node biopsies, Meckel's diverticulectomy because of a preoperative diagnosis of endometrial carcinoma. The final pathology report demonstrates thatsloane has a stage IA, grade 1 endometrial [...] a history of diverticulitis. Prior colonoscopy: December 2015--[facility] for personal history of polyps done by Dr. Conroy--rectosigmoid (4) polypectomy with hyperplastic polyps, ascending colon polypectomy (2) with fragments of tubular adenoma and colonic mucosa with no significant abnormality, transverse colon polypectomy (1) tubular adenoma. Random right colon biopsy with colonic mucosal, normal limits. Review of Symptoms: Gen: no fevers, chills, sweats, no recent weight loss HEENT: no migraines, no changes in vision, no hearing loss CV: no CP or palpitations, able to climb a flight of stairs w/o difficulty Pulm: no SOB, no hx of asthma or inhaler use GI: no hx of constipation or diarrhea : no dysuria, urinary frequency or difficulty maintaining stream Musculoskeletal: no arthralgias or myalgias Neuro: no seizures, no numbness or tingling in the extremities Endocrine: no thyroid problems, no diabetes Psych: no anxiety or depression Heme: no hx of bleeding or bruising easily Skin: no hx of rashes, eczema, or psoriasis Mobility: ambulates w/o difficulty no cane / walker/ or wheelchair PMH PSH Past Medical History: Diagnosis Date ??? High cholesterol ??? HTN (hypertension) ??? Obesity ??? Sleep apnea No past surgical history on file. Social History Family history Social History Substance Use Topics ??? Smoking status: Never Smoker ??? Smokeless tobacco: Never Used ??? Alcohol use No No family history on file. Current Outpatient Prescriptions: acetaminophen (TYLENOL) 500 mg tablet cholecalciferol, Vitamin D3, 1,000 unit tablet cyanocobalamin (VITAMIN B-12) 500 mcg tablet docusate sodium (COLACE) 100 mg capsule fexofenadine (RADHA) 60 mg tablet fluticasone (FLONASE) 50 mcg/actuation nasal spray folic acid (FOLVITE) 400 mcg tablet hydroCHLOROthiazide (HYDRODIURIL) 25 mg tablet hydrocortisone 0.5 % cream Lactobacillus acidophilus (PROBIOTIC) 10 billion cell capsule levothyroxine (SYNTHROID) 25 mcg tablet lisinopril (PRINIVIL, ZESTRIL) 10 mg tablet Magnesium 250 mg tablet Methylcellulose, Laxative, 500 mg tablet mupirocin (BACTROBAN) 2 % ointment nystatin-triamcinolone (MYCOLOG II) cream Potassium Gluconate 595 mg (99 mg) tablet psyllium, 5.8 G, (METAMUCIL) packet selenium 100 mcg tablet Selenium 200 mcg tablet simvastatin (ZOCOR) 20 mg tablet No current facility-administered medications for this visit. Allergies Allergies Allergen Reactions ??? Aspirin Hives convulsions ??? Enalapril Leg cramps ??? Latex Rash redness Objective: Blood pressure 134/76, pulse 88, resp. rate 18, height 152.4 cm (60), weight 98.2 kg (216 lb 8 oz). Physical Exam: Gen: awake, alert, and oriented x 3, NAD Neck: soft, no thyromegaly, no carotid bruits, no cervical lymphadenopathy CV: RRR no M/R/G Pulm: CTA bilat, no wheezes or rhonchi Abd: soft, nontender, nondistended, +bowel sounds Ext: warm, well perfused,no edema Anus: Skin: Skin tag in the right anterior region. Posterior midline anal fissure Rectal exam due to the deferred due to pain secondary to anal fissure Data Review: Labs: CBC: Lab Results Component Value Date WBC 9.66 07/16/2016 RBC 3.40 (L) 07/16/2016 HGB 10.3 (L) 07/16/2016 HCT 30.5 (L) 07/16/2016 PLT 231 07/16/2016 CMP: Lab Results Component Value Date NA 141 07/04/2016 K 3.9 07/04/2016 CL 101 07/04/2016 CO2 30 07/04/2016 BUN 12 07/04/2016 CREATININE 0.76 07/04/2016 CALCIUM 10.0 07/04/2016 AST 30 07/04/2016 ALT 53 (H) 07/04/2016 ALKPHOS 54 07/04/2016 Cardiac: No results found for: CK, CKMBINDEX, TROPONINICoagulation: Lab Results Component Value Date PROTIME 12.7 07/04/2016 INR 1.1 07/04/2016 PTT 30 07/04/2016 Assessment: Roseann Wilcox is a(n) 72 y.o. old female with anal pain caused by an anal fissure. This is improving with soft stool and topical lidocaine. I described that the internal sphincter muscle tends to spasming causes the cut open further--these can be severely painful. Management is generally with softening stool consistency and using nifedipine cream to decrease the spasming. I wrote her instructions for stool softening and a prescription for the nifedipine cream which we will send the [facility] pharmacy. I will see her in 6 weeks. If her symptoms are not improving, we could discuss exam under anesthesia with Botox administration in the internal sphincter muscle.This may take months to completely heal. 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 I would like her anal fissure to heal completely prior to approaching this. We did talk about mucosal advancement flap, but this carries a risk of recurrence If the flap breaks down. She feels as if not really of a priority in her life since she has been dealing with it for so long. Mary Doran MD 08/26/2017 16:00 documented in this encounter Miscellaneous Notes Addendum Note - Mary Doran MD - 08/26/2017 1702 EDT Addended by: MARY DORAN on: 08/26/2017 17:02 Modules accepted: Orders documented in this encounter Plan of Treatment Upcoming Encounters Date Type Specialty Care Team Description 03/28/2022 Office Visit Gynecologic Oncology Kush Liz PA-C [address] [facility], [address] [place], [place] [phone] (Wo rk) documented as of this encounter Visit Diagnoses Diagnosis Anal fissure - Primary documented in this encounter Care Teams Voting Machine Repairer Relationship Specialty Start Date End Date Eve Londono MD PCP - General 04/18/17 [address] [place] [address] documented as of this encounter
--- OUTSIDE RECORDS SUMMARY | 2022-01-25 01:50 | XMS_ITS | Encounter Summary ---
:1945 Author Organization [facility] Address [address] [place] [id number] Care Team Providers Name Role Phone Eve Londono MD Primary Care Provider Reason for Visit Reason Onset Date Comments Appointment Related 06/18/2018 Encounter Details Date Type Department Care Team Description 06/18/2018 Telephone [facility] Will Banegas MD Appointment Related Gynecologic Oncology - [address] [place] [address], [address], [address] [place], [place] [address] [place] [address] [phone] (Wo rk) Social History Tobacco Use [...] this encounter Miscellaneous Notes Telephone Encounter - Lesa Ramirez - 06/18/2018 0818 EST Left message for Roseann re: appt requested by Vesta Liz, scheduled with Dr. Banegas on 06.24.18 at 9:30am. Asked Roseann to call back to confirm appt. documented in this encounter Plan of Treatment Upcoming Encounters Date Type Specialty Care Team Description 03/28/2022 Office Visit Gynecologic Oncology Kush Liz PA-C 111 [facility], [facility], [address] [place] [phone] (Wo rk) documented as of this encounter Visit Diagnoses Not on filedocumented in this encounter Care Teams Photographer Lithographic Relationship Specialty Start Date End Date Eve Londono MD PCP - General 04/18/17 [address] [place] [address] documented as of this encounter
--- OUTSIDE RECORDS SUMMARY | 2022-01-25 01:50 | XMS_ITS | Encounter Summary ---
:1945 Author Organization [facility] Address [address] [place] [address] Care Team Providers Name Role Phone Eve Londono MD Primary Care Provider Encounter Details Date Type Department Care Team Description 10/05/2017 Documentation Visit [facility] Waldo Doran MD General Surgery - [address] [place] [address], [address], [address] [place], [place] [phone] [place] [phone] (Wo rk) Social History Tobacco Use Types [...] encounter Progress Notes Lia Doran MD - 10/05/2017 1602 EDT 07/15/2106 Roseann underwent a da Freddie-assisted total laparoscopic hysterectomy, bilateral salpingo-oophorectomy, and bilateral sentinel hypogastric lymph node biopsies, Meckel's diverticulectomy because of a preoperative diagnosis of endometrial carcinoma. ??The final pathology report demonstrates that she has a stage IA, grade 1 endometrial adenocarcinoma. Postoperatively, she developed obstructionwhich it sounds as though it may have been from constipation. She is given many doses of MiraLAX andthis resolved. Along with this time she developed severe pain in her rectum which she attributed to hemorrhoids. ?? She has had hemorrhoids for 30 or [...] softening her stool. She denies fecal incontinence ?? She also states that she has a small amount of gas and occasional malodorous drainage from her vaginal os. She states she has had this for 50 years since the of one of her children. She states that it is no worse following her recent surgery. She is never had a history of diverticulitis. ?? Prior colonoscopy: December 2015--[facility] [place] personal history of polyps done by Dr. Conroy--rectosigmoid (4) polypectomy with hyperplastic polyps, ascending colon polypectomy (2) with fragments of tubular adenoma and colonic mucosa with no significant abnormality, transverse colon polypectomy (1) tubular adenoma. Random right colon biopsy with colonic mucosal, normal limits. Roseann Wilcox is a(n) 72 y.o. old female with anal pain caused by an anal fissure. This is improving with soft stool and topical lidocaine. I described that the internal sphincter muscle tends to spasming causes the cut open further--these can be severely painful. Management is generally with softening stool consistency and using nifedipine cream to decrease the spasming. ?? I wrote her instructions for stool softening and a prescription for the nifedipine cream which we will send the [facility] pharmacy. I will see her in 6 weeks. If her symptoms are not improving, we could discuss exam under anesthesia with Botox administration in the internal sphincter muscle.This may take months to completely heal. ?? We briefly discussed her rectovaginal fistula that [...] been dealing with it for so long. ?? documented in this encounter Plan of Treatment Upcoming Encounters Date Type Specialty Care Team Description 03/28/2022 Office Visit Gynecologic Oncology Kush Liz PA-C 111 [facility], [facility] 4 [place] [phone] (Wo rk) documented as of this encounter Visit Diagnoses Not on filedocumented in this encounter Care Teams Sales Team Manager Relationship Specialty Start Date End Date Eve Londono MD PCP - General 04/18/17 [address] [place] [address] documented as of this encounter
--- OUTSIDE RECORDS SUMMARY | 2022-01-25 01:50 | XMS_ITS | Encounter Summary ---
:1945 Author Organization [facility] Address [address] [place] [id number] Care Team Providers Name Role Phone Paula Engel NP Primary Care Provider Unavailable Reason for Visit Reason Onset Date Comments Appointment Related 07/12/2016 Encounter Details Date Type Department Care Team Description 07/12/2016 Telephone [facility] Will Banegas MD Appointment Related Gynecologic Oncology - [address] [place] [address], [address], [address] [place] [address] [place], [place] [phone] (Wo rk) Social History Tobacco Use Types Packs/Day Years Used Date Never Smoker Smokeless Tobacco: Never Used Alcohol Use Standard Drinks/Week Comments No 0 (1 standard drink = 0.6 oz pure alcoho l) Sex Assigned at Date Recorded Female 09/25/2021 8:41 EDT documented as of this encounter Miscellaneous Notes Telephone Encounter - Lesa Ramirez - 07/12/2016 0902 EDT Confirmed with: arrival time of 10:10am for [id number]. Please arrive at Registration on the 3rdfloor at this time. No solid food or liquids containing fat after midnight. Clear liquids only until6:10am . Please refer to page 5 under the Preparing for Your Gynecological Procedure tab in your surgery binder for acceptable clear liquids. 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
--- OUTSIDE RECORDS SUMMARY | 2022-01-25 01:50 | XMS_ITS | Encounter Summary ---
:1945 Author Organization [facility] Address [address] [place] [address] Care Team Providers Name Role Phone Paula Engel NP Primary Care Provider Unavailable Reason for Visit Reason Onset Date Comments Results 07/12/2016 CT scan Encounter Details Date Type Department Care Team Description 07/12/2016 Telephone [facility] Leti Lima RN Re sults (CT scan) Gynecologic Oncology - [address] [address] Social History Tobacco Use Types Packs/Day Years Used Date Never Smoker Smokeless Tobacco: Never Used Alcohol Use Standard Drinks/Week Comments No 0 (1 standard drink = 0.6 oz pure alcoho l) Sex Assigned at Date Recorded Female 09/25/2021 8:41 EDT documented as of this encounter Miscellaneous Notes Telephone Encounter - Leti Lima RN - 07/12/2016 [id number] EDT Roseann Wilcox was contacted by phone and advised of CT scan results--no evidence of cancer outside of the uterus per Dr Banegas's request. Confirmed plan to proceed with surgery on Saturday 07/15. 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
--- OUTSIDE RECORDS SUMMARY | 2022-01-25 01:50 | XMS_ITS | Encounter Summary ---
:1945 Author Organization [facility] Address [address] [place] [address] Care Team Providers Name Role Phone Paula Engel NP Primary Care Provider Unavailable Reason for Referral (Routine) - Closed Specialty Diagnoses / Procedures Referred By Contact Refer red To Contact Flavia Washington MD [address] [place] [address] Referral ID Status Reason Start Date Expiration Date Visits V isits Requested Authorized [id number] Closed Specialty 07/16/2016 1 1 Services Required Comments Please follow up with Dr. Jaramillo in 2 week s. Call for an appointment. (Routine) - Closed Specialty Diagnoses / Procedures Referred By Contact Refer red To Contact Flavia Washington MD [address] [place] [address] Referral ID Status Reason Start Date Expiration Date Visits V isits Requested Authorized [id number] Closed Specialty 07/16/2016 1 1 Services Required Comments Call 911 anytime you think you may need emergency care. For example, call if: - You passed out (lost consciousness). - You have severe trouble breathing. - You have sudden chest pain and shortne ss of breath, or you cough up blood. Call your doctor now or seek immediate m edical care if: - You have bright red vaginal bleeding t hat soaks one or more pads in an hour for two consecutive hours, or you have large daniel ts. - You have foul-smelling discharge from your vagina. - You are sick to your stomach or cannot keep fluids down. - You have pain that does not get better after you take pain medicine. - You have loose stitches, or your incis ion comes open. - You have signs of infection, such as: - Increased pain, swelling, warmth, or r edness. - Red streaks leading from the incision. - Pus draining from the incision. - A fever greater than 100.4 degrees F ( 38 degrees C). - You have signs of a blood clot, such a s: - Pain in your calf, back of the knee, t high, or groin. - Redness and swelling in your leg or gr oin. - You have trouble passing urine or stoo l, especially if you have pain or swelling in your lower belly. Watch closely for changes in your health , and be sure to contact your doctor if: - You do not have a bowel movement after taking a laxative. - You have hot flashes, sweating, flushi ng, or a fast heartbeat, but no fever. Encounter Details Date Type Department Care Team Description 07/16/2016 [facility] Marc Jaramillo MD Endometrial cancer Encounter Neurosurgery Unit [address] [place] [address] ([facility] (Primary [address] [facility]) [address] [phone] [facility] [address] [place] [address] Social History Tobacco Use Types Packs/Day Years Used Date Never Smoker Smokeless Tobacco: Never Used Alcohol Use Standard Drinks/Week Comments No 0 (1 standard drink = 0.6 oz pure alcoho l) Sex Assigned at Date Recorded Female 09/25/2021 8:41 EDT documented as of this encounter Last Filed Vital Signs Vital Sign Reading Time Taken Comments Blood Pressure 91/62 07/16/2016 0915 EDT Pulse 74 07/15/2016 2134 EDT Temperature 37.3 ??C (99.1 ??F) 07/16/2016 0915 EDT Respiratory Rate 16 07/16/2016 0915 EDT Oxygen Saturation 96% 07/16/2016 0915 EDT Inhaled Oxygen Concentration - - Weight 102.1 kg (225 lb) 07/16/2016 0200 EDT Height 152.4 cm (5') 07/16/2016 0200 EDT Body Mass Index 43.94 07/16/2016 0200 EDT documented in this encounter Functional Status [...] Diagnosis C54.1 Malignant neoplasm of endometrium- C54.1[ICD-10-CM] Z68.41 Body mass index (BMI) 40.0-44.9, adult-Z68.41[ICD-10-CM] I10 Essential (primary) hypertension-I10 [ICD-10-CM] E66.9 Obesity, unspecified-E66.9[ICD-10- CM] Q43.0 Meckel's diverticulum (displaced) (hypertrophic)-Q43.0[ICD-10-CM] documented in this encounter Discharge Summaries Vayas, Flavia Ross MD - 07/16/2016 0921 EDT Department of Gynecologic Oncology Discharge Summary Admission Date: 07/15/2016 Discharge Date: 07/16/2016 Chief Complaint: Grade 1 endometrial cancer Principal Procedure: Robotic-assisted total laparoscopic hysterectomy, bilateral salpingooophorectomy, division of Meckel's diverticulum, injection of ICG dye, bilateral sentinel lymph node dissection,and cystoscopy Secondary Procedure: None Condition at Discharge: Good Hospital Course: Roseann Wilcox is a 71 y.o. year old female who was admitted to the gynecology service following an uncomplicated robotic-assisted total laparoscopic hysterectomy, bilateral salpingooophorectomy, division of Meckel's diverticulum, injection of ICG dye, bilateral sentinel lymph node dissection, and cystoscopy that was performed for a history of grade 1 endometrial cancer. Please see operative report for full details. The patient did well post- operatively with stable vital signs and good pain control. Her Hct remained stable post-operatively. On the morning of POD #1, she tolerated a regular diet, ambulated and voided independently after removal of her horn catheter. She was subsequently discharged to home with instructions to follow up with Dr. Jaramillo in two weeks time. Relevant Studies at Discharge: none Last Lab Results at Discharge: CBC: Lab Results Component Value Date WBC 9.66 07/16/2016 RBC 3.40 (L) 07/16/2016 HGB 10.3 (L) 07/16/2016 HCT 30.5 (L) 07/16/2016 MCV 90 07/16/2016 MCH 30.3 07/16/2016 MCHC 33.8 07/16/2016 PLT 231 07/16/2016 Discharge Summary Completed: Flavia Washington MD 07/16/2016 9:22 PGY-2, Obstetrics and Gynecology Pager #: [phone] documented in this encounter Medications at Time [...] mg tabletIndications: mouth daily. patient not taking oxyCODONE (ROXICODONE) 5 mg Take 1-2 Tabs by 30 Tab 0 10/17/2016 immediate release tablet mouth every 4 hours as needed for Pain. Daily Max: 60 mg psyllium, 5.8 G, (METAMUCIL) Take 1 Packet by 0 11/04/2018 packet mouth daily. selenium 100 mcg tablet Take 200 mcg by 0 08/11/2018 mouth daily. Reported on 08/12/2016 simvastatin (ZOCOR) 10 mg Take 20 mg by 0 10/17/2016 tablet mouth every evening. documented as of this encounter Ordered Prescriptions Prescription Sig Dispensed Refills Start Date End Date docusate sodium (COLACE) Take 1 Cap by mouth 60 Cap 2 100 mg capsule 2 times daily. oxyCODONE (ROXICODONE) 5 Take 1-2 Tabs by 30 Tab 0 07/1610/17/2016 mg immediate release mouth every 4 hours tablet as needed for Pain. Daily Max: 60 mg documented in this encounter Discharge Disposition Disposition Code Departure Means Destination Home or Self Care documented in this encounter Progress Notes Beronica Stanley - 07/16/2016 1133 EDT CM Discharge Note: Patient noted to have an impending d/c to home with stable vitals, tolerating diet, ambulating safely, pain controlled, voiding without dysuria. Patient reports being comfortable with d/c to home. Family to provide patient with private transportation. Patient reports using [facility] in [place] for pharmacy. Beronica Stanley CIGARETTE TESTER CM #[id number]. Marc hutchinson MD - 07/16/2016 0617 EDT Gynecology Progress Note Service Date: 07/16/2016 Admit Date: 07/15/2016 9:45 ( LOS: 0 days ) POD: 1 (07/15/2016) Chief Complaint: s/p DaVinci-assisted TLH, BSO, division of Meckel's diverticulum, injection of ICG dye, bilateral sentinel lymph node dissection, cystoscopy for grade 1 endometrial cancer 24 Hour Events: Admitted s/p above procedure; NICOL overnight Subjective/Objective Subjective Patient doing well, reports that she felt very crampy but her pain is better after oxycodone this AM. Tolerating fluids PO, no N/V. No flatus, no BM. Ambulated with assistance, Horn in place. Denies CP, SOB, calf pain. Objective UOP: 150cc/4hr Vital Signs Temp: [35.9 ??C (96.6 ??F)-37.3 ??C (99.1 ??F)] (), Heart Rate: [65 BPM-86 BPM] (), Resp: [11-22] (), BP: (99-146)/(50-93) (), SpO2: [93 %-100 %] () Physical Exam Gen: NAD Resp: CTAB CV: RRR Abdomen: Soft, non-tender, +BS. Port site incisions clean/dry/intact. Ext: WWP, 2+DPs, no edema Medications Reviewed: No changes Labs: Pending this AM Assessment/Plan Assessment Roseann Rizwan Wilcox is a 71 y.o. POD#1 s/p DaVinci-assisted TLH, BSO, division of Meckel's diverticulum,injection of ICG dye, bilateral sentinel lymph node dissection, cystoscopy for grade 1 endometrial cancer. Doing well this AM, AVSS. Plan Pain: Well controlled on current regimen. CV: H/o HTN, currently normotensive. Continue lisinopril. Resp: H/o SHAMAR, continue home CPAP. Encourage IS. GI: Regular diet as tolerated. Phenergan and Zofran PRN for nausea. Colace for bowel regimen. : Horn in place, will d/c once ambulating. F/E/N: LR @ 140 cc/hr, will saline lock IV once tolerating adequate po (>500cc/shift). Endo: H/o HLD, continue simvastatin. H/o hypothyroidism, continue synthroid. Heme: Pre-op Hct 37.1, EBL 50mL. AM CBC pending. ID: Afebrile, no active issues. VTE Prophylaxis: Ambulation, SCD's, heparin TID. Disposition: D/C home once tolerating po, pain well controlled, ambulating and voiding independently Flavia Washington MD 07/16/2016 6:21 Attending Note/Bassam I have personally examined and interviewed pt. I agree with residents note and plan. If tolerates diet and has good pain control. OK to d/c home later today. Marc Jaramillo MD FINAWong fried - 07/16/2016 0556 EDT Post-Op Check CC: Patient 1 day s/p robotic assisted total laparoscopic hysterectomy, bilateral salpingo-oophorectomy, division of Meckel's diverticulum, injection of ICG dye, bilateral sentinel hypogastric lymph node biopsies, cystoscopy for grade 1 endometrial cancer. S: Patient states that she is recovering well. She has some pain in her epigastric region, 5/10, butstates that it gets better with the pain meds that she is taking. She no longer complains of nausea.Horn in place. Has not ambulated yet. Is drinking water but has not yet tried food. She denies any b owel movements or passing gas. O: T-37.3 BP-99/50 P-74 RR-14 SpO2-94% BMI-43.94 Total Input for 07/15 = 2950mL Total output = 2550mL Net = 400mL Gen- NAD Resp- CTAB CV- RRR Abd- Mild distension, bowel sounds heard, 6 port site incisions Ext: WWP A: Roseann iWlcox is a 71 y.o. F POD#0 s/p robotic assisted total laparoscopic hysterectomy, bilateral salpingo-oophorectomy, division of Meckel's diverticulum, injection of ICG dye, bilateral sentinel hypogastric lymph node biopsies, cystoscopy for grade 1 endometrial cancer. Pt recovering well. P: Pain- Well controlled on current medication CV- Hx of HTN, well controlled on current medicaion Resp- Encourage IS, continue CPAP GI- Encourage regular diet as tolerated - Horn in place. Remove once walking independently FEN- LR @ 140 cc/hr, will saline lock IV once tolerating adequate po (>500cc/shift) Endo- Continue simvastatin for cholesterol control and synthroid for hypothyroidism Heme- Awaiting results of CBC ID- No fever PPX- SCDs, heparin TID, IS, encourage ambulation as tolerated D/C- Once ambulating and voiding independently, and tolerating PO Beronica Avendaño, RT - 07/15/2016 2821 EDT Respiratory Consult/Progress Note Indications for Respiratory therapy: admit consult Data Vitals: Heart Rate: 66 BPM, Resp: 16, SpO2: 98 % FIO2/O2 Device: O2 Flow Rate (L/min): 1 l/min, , O2 Device: Nasal cannula, FIO2 %: 24 % RT Orders: cpap home unit Protocol Scoring: Bronchodilator/Inhalation Therapy Frequency Bronchodialator - Clinical Indications: No clinical indications Breath Sounds: Clear Response: No change / no treatment Pulse: <100 Resp Rate: <18 SOB: None Total Score: 0 Comment:: pt has no home rooutine Airway Clearance Therapy Frequency Airway Clearance - Clinical Indications: No clinical indications Breath Sounds: Clear / diminished Sputum: Small (tsp) / None Consistency: None Cough Effort: Strong, non-productive Color: None Total Score: 0 Comment: not indicated atthis time Hyperinflation Therapy Frequency Hyperinflation - Clinical Indications: No clinical indications Breath Sounds: Clear Surgery: No X-Ray / Atelectasis: No O2 Requirements: 0-2 L above baseline Mobility Status: Mobile / at baseline Total: 1 Comment: prn Action/Events Respiratory events; Pt has no home resp meds. Used an inhaler 1-2 yrs ago with a bad cold. She is compliant with her home unit cpap and has it here. Response/Results Weaning and Toleration of treatments; Wean nc as tolerated Beronica Ramos, RT 07/15/16 Jessie Reyes MD - 07/15/20162011 EDT Post-op Check S: Doing well, pain well controlled. She has tolerated a few sips of fluids but has not tolerated food. Has some nausea but no vomiting. She has not yet ambulated. Horn in place. The patient denies CP/SOB/N/V/BANKS/Dizziness/F/C/LE pain. O: Visit Vitals ??? BP 112/58 (BP Cuff Location: Right arm, Patient Position: Semi fowlers) ??? Temp 36.8 ??C (98.2 ??F) (Tympanic) ??? Resp 16 ??? Ht 152.4 cm (60) ??? Wt (!) 102.1 kg (225 lb) ??? SpO2 95% ??? BMI 43.94 kg/m2 Intake/Output Summary (Last 24 hours) at 07/15/162012 Last data filed at 07/15/16 1900 Gross per 24 hour Intake 2950 ml Output 1975 ml Net 975 ml UOP: 1000cc/ 1 hr Gen: NAD Resp: CTAB CV: RRR Abd: Obese, mildly distended but soft, hypoactive bowel soundsdistended, 6 port site incisions c/d/i Ext: WWP, trace PE bilat A/P: Roseann Wilcox is a 71 y.o. F POD#0 s/p robotic assisted total laparoscopic hysterectomy, bilateral salpingo-oophorectomy, division of Meckel's diverticulum, injection of ICG dye, bilateral sentinel hypogastric lymph node biopsies, cystoscopy for grade 1 endometrial cancer. Pt recovering well, AVSS and adequate UOP. PAIN: Well controlled on current regimen, oxycodone/ morphine, APAP. Holding toradol per patient request and h/o ASA allergy. CV: H/o HTN, currently normotensive. Continue lisinopril. RESP: H/o SHAMAR, continue home CPAP. Encourage IS. GI: Regular diet as tolerated. Phenergan, zofran prn for nausea. Senna and colace for bowel regimen.?? : Horn in place, will d/c once ambulating. FEN: LR @ 140 cc/hr, will saline lock IV once tolerating adequate po (>500cc/shift). ENDO: HLD, continue simvastatin. H/o hypothyroidism, continue synthroid. HEME: Preop HCT 37.1, EBL 50cc. Will obtain CBC tomorrow morning. ID: Afebrile, no active issues. PPX: Ambulation, IS, SCD's, heparin TID D/C: Once tolerating po, pain well controlled, ambulating and voiding independently Jessie Adams MD 07/15/2016 20:13 Janis Andujar RN - 07/10/2016 8019 EDT Roseann Rizwan Wilcox has been instructed as follows regarding medication administration for the day of the scheduled procedure. Date of Surgery: 07/15/2016 Instructions for Taking Medications Day of Surgery Medication Sig Last Dose Hold DOS Take DOS acetaminophen (TYLENOL) 500 mg tablet Take 500 mg by mouth every 6 hours as needed for Pain. Yes prn cholecalciferol, Vitamin D3, 1,000 unit tablet Take 1,000 Units by mouth every 48 hours. 07/10/2016 cyanocobalamin (VITAMIN B-12) 500 mcg tablet Take 500 mcg by mouth daily. 07/10/2016 docusate sodium (COLACE) 100 mg capsule Take 100 mg by mouth 2 times daily. x fexofenadine (RADHA) 60 mg tablet Take 60 mg by mouth daily. Yes fluticasone (FLONASE) 50 mcg/actuation nasal spray Instill 100 mcg into both nostrils as needed. Yes folic acid (FOLVITE) 400 mcg tablet Take 400 mcg by mouth daily. 07/10/2016 hydroCHLOROthiazide (HYDRODIURIL) 25 mg tablet Take 25 mg by mouth daily. x hydrocortisone 0.5 % cream Apply topically 2 times daily. yes levothyroxine (SYNTHROID) 25 mcg tablet Take 25 mcg by mouth daily. Yes lisinopril (PRINIVIL, ZESTRIL) 10 mg tablet Take 20 mg by mouth daily. Yes Magnesium 250 mg tablet Take by mouth daily. 07/10/2016 mupirocin (BACTROBAN) 2 % ointment Apply topically as needed. Yes nystatin-triamcinolone (MYCOLOG II) cream Apply topically 4 times daily. Reported on 07/04/2016 yes Potassium Gluconate 595 mg (99 mg) tablet Take by mouth daily. 07/10/2016 psyllium, 5.8 G, (METAMUCIL) packet Take 1 Packet by mouth daily. x selenium 100 mcg tablet Take 200 mcg by mouth daily. 07/10/2016 simvastatin (ZOCOR) 10 mg tablet Take 20 mg by mouth every evening. hs documented in this encounter H&P Notes Marc Jaramillo MD - 07/15/2016 1139 EDT The preoperative history and physical which was performed within 30 days of this procedure has been reviewed and the clinically appropriate elements of the physical examination havebeen repeated. There are no changes to the documented history and physical or if so such changes aredocumented below Marc Jaramillo MD 07/15/2016 11:41 Marc Snell MD - 07/04/2016 1300 EDT Subjective: Thank [...] HISTORY: One normal spontaneous vaginal delivery. 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 She [...] informed of her progress. 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 During pelvic dissection,a tubular structure was noted to be adherent from the ileocecal region to the right aspect of the uterus. FINDINGS: Tubular structure extending from the distal ileum to the right aspect of the uterus PROCEDURE IN DETAIL: An intraoperative consult was requested. Upon my involvement in the procedure, a laparoscopic robotic-assisted approach was already underway. A tubular structure was noted to be adherent to the right aspect of the uterus with an origin at the ileocecal region. Upon further inspection, the base of this tubular structure was noted to be at the distal ileum, approximately 5 cm from the ileocecal junction. This finding was found consistent with a Meckel's diverticulum. There is no evidence of inflammatory changes. However given adherence to the surgical specimen, the decision was made to divide this structureher to resected en bloc with the uterus. The patient's RUQ port was upsized to an 12mm device. An Endo INGRID stapler was passed through the port and used to divide the diverticulum at its base. Upon completion of this division, staple line was noted to be intact and hemostatic. The procedure was then resumed by Dr. Jaramillo and his team. COMPLICATIONS: None identified EBL: None for this portion of the procedure DRAINS/TUBES: None for this portion of the procedure SPECIMENS: Meckel's diverticulum en bloc with uterus (primary surgical specimen) CONDITION: Good DISPOSITION: Continued operative care by Dr. Bassam Crews??c MD [facility] Pager #[phone] documented in this encounter OR Notes OR Surgeon - Marc Jaramillo MD - 07/15/2016 0000 EDT OPERATIVE REPORT SERVICE DATE: 07/15/2016 SURGEON: Marc Jaramillo MD CABLE INSTALLER REPAIRER HELPER: Cher Arroyo MD KEG VARNISHER: Bisi Gross MD PREOPERATIVE DIAGNOSES: Endometrial carcinoma, BMI of 44. POSTOPERATIVE DIAGNOSES: Endometrial carcinoma, BMI of 44. PROCEDURE: Da Freddie-assisted total laparoscopic hysterectomy, bilateral salpingo-oophorectomy injection, injection of ICG dye, bilateral hypogastric sentinel lymph node biopsy and cystoscopy. Please refer to Dr Gross's note with regards to transection of the Meckel's diverticulum. ANESTHESIA: General. COMPLICATIONS: None. ESTIMATED BLOOD LOSS: 70 mL. INDICATIONS: The patient recently had a biopsy, which demonstrates grade 1 endometrial carcinoma. Treatment options were reviewed with patient. The patient elected to undergo above-described procedure. FINDINGS: At the time of surgery, it was noted that the right-sided aspect of the uterus was adherent to the right pelvic sidewall. There was a tubular structure from the terminal ileum that was densely adherent to the posterior surface (right-sided) aspect of the uterus. This could be a Meckel's diver ticulum. Using the Firefly technology, the hypogastric sentinel lymph nodes were identified on both the right and left side. Cystoscopy demonstrated that there was urine coming from both ureteral orifices, and the bladder mucosa was intact. NARRATIVE: The patient was brought to the operating room, and after successful attainment of anesthesia, the patient was prepped and draped in the usual sterile fashion. A time-out was taken, the patient was identified and the proposed surgical procedure was stated and concurred with nursing and anesth esia. At this point, the ICG dye was injected into the cervix. Injection was at the 3 and 9 o'clock position. At each position, there were 2 injections. One injection was 1 mm depth and other injectionwas 1 cm in depth. Each injection was with 1 mL of ICG dye. After injection of the ICG dye, the RUMIuterine manipulator and cervical cap was inserted under direct visualization. At this point, after the patient was draped in the usual sterile fashion, a small vertical incision was made above the umbilicus. Veress needle was inserted into the abdominopelvic cavity. The abdominopelvic cavity was then insufflated with CO2. The 8 mm da Freddie port was placed in the supraumbilical port site. At this point, two 8 mm da Freddie ports were placed in the left lower quadrant, one 8 mm daVinci port was placed in the right lower quadrant and an accessory port was placed in the right upper quadrant. The patient was then placed in Trendelenburg and pelvic washings were obtained, and the da Freddie system was docked onto the trocars. At this point, the above findings were noted, and it was noted that there were adhesions of the terminal ileum to the posterior surface right lateral aspect of the uterus. Meticulous dissection was used to take this down. The round ligament on the patient's right side was identified. It was cauterizedand cut. Retroperitoneal space was opened. The ovarian ligament was then cauterized and cut. At thispoint, the tubular structure was noted to be adherent from the terminal ileum to the posterior rightlateral aspect of the uterus. I asked Dr Gross to come in for evaluation. We had discussed that this could represent a Meckel's diverticulum and the recommendation was that it should be transected in order for us to proceed with our surgery. At this point, the 8 mm accessory port was changed to a [address] Gross transected the tubular structure (Meckel's diverticulum at its base). Please refer to his dictated note. Once the uterus was free from the terminal ileum, attention was then turned to the left side. The round ligament was identified. It was cauterized and cut. Retroperitoneal space was opened and the ovarian pedicle was then cauterized and cut. Using Firefly technology now, the sentinel lymph node on both the right and left side was identified and it was on the medial aspect of the hypogastric vessels. This lymph node was then removed in a fashion of cauterizing and cutting fashion, and each of these lymph nodes was delivered through the accessory port without any difficulty. At this point, the hysterectomy was then begun. The bladder flap was then created, pushing the bladder out of the operative field. The bladder was then backfilled in order to distinguish the boundariesbetween the bladder and the uterus/cervix. Once this was done, the uterine vessels were then skeletonized, and they were cauterized and cut. Descending bites were taken along the cervix in a cauterizing and cutting fashion. Next, an anterior colpotomy was then created against the cervical cap. This anterior colpotomy was then extended to both the right and left side and then posteriorly. Once the uterus and cervix were amputated from the upper vagina, the specimen was then delivered through the vagina. Because of bleeding at the angle of the left lateral angle, this angle was then suture ligated in a [id number] fashion with a 0 Vicryl suture. Next, the vaginal cuff was then reapproximated. Two V-Loc sutures were used. Each V-Loc suture started at an angle and met in the midline. Cystoscopy was then performed and urine was noted to come from both ureteral orifices, and the bladder mucosa was intact. At this point, satisfied with the integrity of the ureters, Surgicel was applied over the area of resection after the abdominal pressure was decreased down to 5. There was no evidence of any bleeding. Surgicel was then applied in the pelvis in the area of resection. At this point, the da Freddie system was undocked from the trocars. CO2 was expressed from the abdominopelvic cavity. Trocars were removed. The fascia at the 12 mm port site was then reapproximated, and then the skin edges were reapproximated. At the end of the surgical procedure, the patient tolerated the procedure well. The patient was transferred to the recovery room in good stable condition. Dr Jaramillo was present throughout the entire procedure. Unless otherwise noted, there were no complications, no blood loss, no cultures obtained, no specimens removed, and no drains retained. Marc Jaramillo MD 04 55 PM / Marc Jaramillo MD cn Confirmation: [id number] Dictation ID: [id number] cc:Marc Gross MD documented in this encounter Miscellaneous Notes Plan of Care - Layla Schneider RN - 07/16/2016 1135 EDT Problem: Daily Care Plan Goals Goal: Care Plan Documentation Outcome: Met This Shift 07/16/16 0940 Care Plan Focus Area of Focus GI//Elimination Goal This Shift pt will void post horn cath removal Nursing Discharge Note D: Patient noted with discharge orders to: Home. Pt voided 410mL after horn cath removal. A: Prescriptions faxed to pharmacy. Reviewed discharge instructions and prescriptions with Patient and Family IV d/c'd. Belongings collected and sent home with patient. R: Patient and Family verbalized understanding of discharge instructions and denied further questions. Layla Schneider RN 07/16/2016 11:34 Anesthesia Post-Eval - Marco Bangura CRNA - 07/16/2016 0828 EDT Anesthesia Post op Note Roseann Wilcox M607/02 Anesthesia received: General; Vital Signs: Temp: 37.3 ??C (99.1 ??F), Heart Rate: 66 BPM, Pulse: 74, BP: 99/50 (notified Ashlee Jewell), Resp: 14, SpO2: 94 % Vital signs Stable: Yes Consciousness: Recovered to baseline Patient's participation in evaluation:Able to participate Temperature Status: Normothermic Respiratory Status: Airway patent Supplemental O2: Room air Oxygen Saturation: Cardiovascular Status: Post-op Hydration: Adequate Nausea / Vomiting: None Pain Control: Adequate Current Pain Score: Numeric Pain Level (Scale 1-10): 5 Post-op Assessment: Tolerated procedure well Disposition: Inpatient Complications: No apparent anesthetic complications Marco Bangura CRNA 07/16/2016 8:28 lan of Sue - Fanta Hubbard RN - 07/16/2016 0459 EDT Problem: Daily Care Plan Goals Goal: Care Plan Documentation Outcome: Met This Shift 07/16/16 0142 Care Plan Focus Area of Focus Pain/ Comfort Goal This Shift pain will be tolerable Data: Resumed care of pt @ 2300, pt complained of 2/10 with movement. Lap sites C/D/I, Urine output WNL. Action: Given scheduled pain medication overnight. Response: Pt able to rest comfortably overnight. Fanta Hubbard RN 07/16/2016 4:58 lan of Care - Vesta Holt RN - 07/15/2016 6889 EDT Problem: Daily Care Plan Goals Goal: Care Plan Documentation 07/15/161950 Care Plan Focus Area of Focus Other Goal This Shift Admit, orient patient to unit. Data: Patient arrived to unit A&O x 3, reports pain well controlled, Horn draining clear, yellow urine. Five lap sites intact with skin adhesive, murtaza pad in place with no drainage. Patient reports she is tired and would like her CPAP hooked up as soon as possible so she can sleep. Action: Patient assessed, monitored, medications administered as ordered. MD notified of senna request, patient oriented to unit. Response: Patient had slight nausea and phenergan was effective. Patient reports pain well controlled and is looking forward to discharge tomorrow. Report given to night RN. Vesta Holt RN 07/15/2016 23:15 rief Op Note - Cher Arroyo MD - 07/15/2016 1703 EDT Brief Operative Note Date: 07/15/2016 Attending: Marc Jaramillo MD and intraoperative consult with Dr. Gross from Acute Care Strap Buckler: Cher Arroyo MD and Erik Gaxiola MS III Pre-op diagnosis: G1 endometrial cancer Post-op diagnosis: same Procedure: daVinci-assisted total laparoscopic hysterectomy, bilateral salpingo- oophorectomy, division of Meckel's diverticulum, injection of ICG dye, bilateral sentinel hypogastric lymph node biopsies, cystoscopy Anesthesia: GETA Findings: 1. EUA revealed small, mobile, anteverted uterus, no adnexal masses 2. Omental/bowel adhesion to anterior abdominal wall just right of the umbilicus 3. Normal-appearing uterus 4. Normal-appearing bilateral ovaries and tubes 5. Band of tissue coming from posterior uterine wall at right cornua attaching into ileum near the terminal ileum; unclear if a diverticulum vs adhesion vs appendix 6. Adhesions between uterus and right pelvic sidewall 7. Bilateral ureters vermiculating 8. Bilateral ureteral jets on cystoscopy Blood loss: 50cc Fluids: 2200cc LR Urine output: 800cc Specimens: uterus, cervix, bilateral tubes and ovaries, bilateral hypogastric sentinel lymph node biopsies, pelvic washings Drains/Packs/Foreign object retained: horn, surgicel Complications: none Condition: good Disposition: PACU, then floor See dictated operative report for more details documented in this encounter Plan of Treatment Upcoming Encounters Date Type Specialty Care Team Description 03/28/2022 Office Visit Gynecologic Oncology Kush Liz PA-C [address] [facility], [facility], [address] [place], [place] [address] (Wo rk) Scheduled Referrals Name Type Priority Associated Order Schedule Diagnoses PROVIDER FOLLOW-UP Outpatient Referral Routine Or dered: INSTRUCTIONS 07/16/2016 PROVIDER FOLLOW-UP Outpatient Referral Routine Or dered: INSTRUCTIONS 07/16/2016 documented as of this encounter Procedures Procedure Name Priority Date/Time Associated Comments Diagnosis ECG REPORT - SCANNED 07/19/2016 9:22 EDT COMPLETE BLOOD COUNT Routine 07/16/2016 5:47 Resu lts for this EDT procedure are i n the results section. SURGICAL PATHOLOGY Routine 07/15/2016 15:27 Resul ts for this EDT procedure are i n the results section. CYTOPATHOLOGY Routine 07/15/2016 0:00 Results for this EDT procedure are i n the results section. ORDERS - SCANNED 07/08/2016 11:22 EDT TYPE AND SCREEN Routine 07/04/2016 15:10 Results for this EDT procedure are i n the results section. documented in this encounter Results (ABNORMAL) HEMAGRAM (07/16/2016 5:47 EDT) Pathologist Sig nature WBC 9.66 4.0 - 12.4 K/cmm [facility] RBC 3.40 (L) 3.86 - 5.04 M/cmm [facility] Hemoglobin 10.3 (L) 11.6 - 15.2 gm/dl [facility] HCT 30.5 (L) 34.9 - 44.4 % [facility] MCV 90 81 - 98 fl [facility] MCH 30.3 26.7 - 33.3 pg [facility] MCHC 33.8 32.1 - 35.9 gm/dl [facility] RDW-CV 14.6 11.7 - 14.6 % [facility] RDW-SD 47.6 37.6 - 50.3 fl [facility] PLT 231 141 - 377 K/cmm [facility] MPV 10.6 9.5 - 12.7 fl [facility] Specimen Blood specimen (specimen) - Blood Performing Organization Address City/State/ZIP Code Phon e Number [facility] [address] [place] [address] SERVICES SURGICAL PATHOLOGY (07/15/2016 15:27 EDT) Pathology SURGICAL PATHOLOGY REPORT [facility] Report: Reports generated via electronic interface conta in original data; [facility] however they are lacking the format of the original re port. SERVICES Caution should be taken when reading/interpreting unfo rmatted reports. Name: ? ROSEANN WILCOX ? Accession #: ? [id number] ? : ? 1945 (Age: 8 0) ??F ? Collect Date: ? 07/15/2016 ? Location: ? M006 ? Receive Date: ? 07/16/19 17 ? Provider: MARC JARAMILLO MD Copy to: PAULA ENGEL NP ? Final Pathologic Diagnosis: A. LYMPH NODES, HYPOGASTRIC SENTINEL, LEFT, EXCISION: - One lymph nodes negative for malignancy (0/1). B. LYMPH NODES, HYPOGASTRIC SENTINEL, RIGHT, EXCISION: - One lymph nodes negative for malignancy (0/1). C. UTERUS, CERVIX, FALLOPIAN TUBES, AND OVARIES, AND PORTION OF POSSIBLE MECKEL'S DIVERTICULUM, HYSTERECTOMY AND BILATERAL SOSA PINGO-OOPHERECTOMY: - ??Endometrium: ? - ??Endometrial adeno carcinoma, endometrioid type, FIGO grade I, confined to the endometrium and involving adenomyosis (AJCC: pT1a [FIGO IA], pN0). ??See synoptic report and comment. ? - ??Adjacent endometrium shows atypical complex hyperplasia. - ??Myometrium: ? - ??Leiomyomata (1.6 cm maximal dimension). ? - ??Adenomyosis. - ??Cervix: ? - ??Endocervical polyps. - ??Serosa: - ??Adhesed portion of myoid tissue most consistent wi th ligamentous tissue. - ??Features of Meckel's diverticulum not identified. ? - ??Focal subserosal adenomyosis. - ??Fallopian tube, right: ? - ??Tubo-ovarian adhesions. ? - ??Status post ligation. - ??Fallopian tube, left: ? - ??Focal serosal/subserosal endometriosis show ing atypical complex hyperplasia. ? - ??Status post ligation. - ??Ovaries: ? - ??Focal adhesions. SYNOPTIC REPORT STAGE (pTNM) ? PRIMARY TUMOR (pT): ?? pT1a CATEGORY (pN): ?? pN0 SPECIMEN: ?? Uterine corpus, Cervix, Right ovary , Left ovary, Right fallopian tube, Left fallopian tube PROCEDURE: ?? Simple hysterectomy ADDITIONAL PROCEDURES: ?? Bilateral salpingo-oophorect prashant SPECIMEN INTEGRITY: ?? Intact hysterectomy specimen LYMPH NODE SAMPLING: ?? Performed ??Hypogastric sentin el lymph nodes HISTOLOGIC TYPE: ?? Endometrioid adenocarcinoma HISTOLOGIC GRADE: ?? FIGO grade 1 MYOMETRIAL INVASION: ?? Absent TUMOR INVOLVEMENT OF CERVIX: ?? Not involved EXTENT OF INVOLVEMENT OF OTHER ORGANS: ?? Right ovary - Not involved Left ovary - Not involved Right fallopian tube - Not involved Left fallopian tube - Not involved PERITONEAL ASCITIC FLUID: ?? Negative for malignancy ( normal / benign) LYMPH-VASCULAR INVASION: ?? Not definitively identifie d REGIONAL LYMPH NODES: ?? Hypogastric NUMBER OF PELVIC LYMPH NODES EXAMINED: ?? 2 LYMPH NODE INVOLVEMENT: ?? 0 FIGO STAGE ? FIGO STAGE: ?? IA Comment: ? Benefits Processor slides of this case were reviewed at the intradepartmental consultation conference. Focal endometrial tissue with in vessels exhibits morphologic features of artifactual displacement. ?? Document reviewed and electronically signed by: JESSIE CRUZ MD Report ??Date: 07/18/2016 14:42 By the signature above, the attending physician certif ies that he/she has personally conducted a gross and/or microscopic examin ation of the described specimens and rendered or confirmed the above diagnosi s. Specimen(s) Received: A. ??Left hypogastric sentinel lymph nodes B. ??Right hypogastric sentinel lymph nodes C. ??Cervix, uterus, bilater al fallopian tubes, and dior ovaries with portion of possible Meckel's diverticulum Clinical History: Grade 1 endometrial CA Intraoperative Interpretation: C. ??UTERUS, HYSTERECTOMY (FSC1): - Endometrioid adenocarcinoma, FIGO I, no definitive i nvasion identified; background of atypical complex hyperplasia involving a denomyosis. - Results to Dr. Jaramillo in person on 07/15/2016 at 16:00 hrs. ??Dr. Danish Schofield 07/15/2016 16:02 hrs I have personally reviewed the slides and the Fellow's interpretation and concur. ??Dr. Johanna Amador 07/15/2016 Gross Description: A. ?Received in claudette l saline labelled with proper patient identification (initials P, M) and left hypogastric sentinel l ymph nodes is a single lymph node (1.1 x 0.8 x 0.5 cm). Serially sectioned and enti rely submitted in A1. B. ?Received in claudette l saline labelled with proper patient identification (initials P, M) and right hypogastric s entinel lymph nodes is a single lymph node (1.2 x 0.8 x 0.4 cm). Serially sectioned and enti rely submitted in B1. C. ?Received fresh la belled with proper patient identification (initials P, M) and cervix, uterus, bilateral fallopian tubes, and dior ovaries with a portion of Meckel's divert is an [address]us (8.9 cm cervix to fundus, 5.5 cm cornu to cornu, and 4.0 cm a nterior to posterior). ??The serosa is glistening and pink-mccormick to focally dusky and johnson. A 2.0 cm in length band-like structure protrudes from the upper uterine body, posterior to th e right adnexa. The structure is stapled at the resection margin, where it was detached from the small bowel wall, as per Dr. Jaramillo. The structure range s from 0.6-0.9 cm in diameter. The structure is surfaced by serosa contiguo us with that of the posterior upper uterine body. The staple d margin is removed and the underlying surface is inked blue. Sections through the tissue sweetie w solid, focally hemorrhagic pale johnson parenchyma. The 3. 5 cm in diameter cervix shows blue dye staining. The cervical os is patent. The endocervical canal is reticulated and mccormick-valencia and shows two small polyps (0.8 x 0.3 x 0.3 cm and 1.0 x 0.5 x 0.2 cm). The upper endometrium, assoc iated with the right cornu, has a 2.5 x 1.5 cm soft pale valencia-white tumor, elevated to a height of 0.8 cm. Areas of obvious myometrial wall invasion are not identified. The tumor does not involve the endocervical canal. The underlying myometrium sh ows multiple small submucosal and intramural leiomyomata, ranging from 0.3-1.6 cm in diameter. The myometrial tissues also show areas consistent with adenomyosis un derlying the area of tumor. The myometrium averages 1.9 cm in thickness. ??A field representatives director section from the tumor within the up per posterior endomyometrium is submitted for frozen section as FSC1 with the interpretation rendered as ab ove. The attached previously ligated left fallopian tube measures 4.0 cm in total length. The serosa is dusky and brown-pu rple. The attached unremarkable left ovary measures 1.5 x 1.0 x 0.8 cm. The attached right adnexa are dist orted. The previously ligated fallopian tube has a total length of 4.5 cm and measures up to 0.9 cm in diameter. The tubal fimbria are adherent to the outer surface of the otherwise unremarkable right ovary (1.5 x 1.3 x 1.0 cm). Represe ntative sections are submitted as follows: BLOCK RASCON C1- ??protruding posterior uterine body band C2- ??anterior cervix C3- ??anterior lower uterine segment C4-C8- ??majority of anterior endomyometrium, to include entire anterior wall tumor C9- ??posterior cervix C10- ??posterior endocervical canal polyp C11- ??posterior lower uterine segment C12-C16- ??majority of poste rior endomyometrium, to include entire posterior wall tumor, with C16 representing FSC1 control C17-C18- ??left ovary and le ft fallopian tube, to include the entire distal end and a field representatives director cross section C19-C20- ??right ovary and r ight fallopian tube, to include the entire distal end and a field representatives director cross section SUJEY Sommer (ASCP) 07/16/2016 2:50 PM End of Report Specimen Performing Organization Address City/State/ZIP Code Phon e Number [facility] [address] [place] [address] SERVICES CYTOPATHOLOGY (07/15/2016 0:00 EDT) Pathology Report: CYTOPATHOLOGY REPORT [facility] Reports generated via electronic interface contain ingrid ginal data; SERVICES however they are lacking the format of the original re port. Caution should be taken when reading/interpreting unfo rmatted reports. Name: ? ROSEANN WILCOX ? Accession #: ? [id number] : ? 1945 (Age: 8 0) ??F ?Collect Date: ? 07/15 Location: ? M006 ? Receive Date : ? 07/16/2016 Provider: ? MARC JARAMILLO MD Copy to: ?PAULA ENGEL NP ? CYTOLOGIC DIAGNOSIS: PERITONEAL WASHING, CYTOLOGIC EVALUATION: - ??No malignant cells identified. Document reviewed and electronically signed by: ? RANJANA ALEX MD Report Date: ??07/16/2016 15:26 By the signature above, the attending physician certif ies that he/she has personally conducted a gross and/or microscopic examin ation of the described specimens and rendered or confirmed the above diagnosi s. Specimen Type: ? Peritoneal Washing Clinical History: ? Grade 1 endometrial cancer ? Gross Description: ? 100ccs of clear colorless fluid were received and proc essed by selective cellular enhancement technique. ? End of Report Specimen Performing Organization Address City/[facility] Phon e Number [facility] [address] [place] [address] SERVICES TYPE AND SCREEN (07/04/2016 15:10 EDT) ABO AB [facility] Rh Factor Positive [facility] Antibody Screen Negative [facility] Specimen Expires: 07/18/2016 @ 23:59 [facility] R BLOOD BANK Specimen Performing Organization Address [facility] Phon e Number [facility] [address] BLOOD BANK documented in this encounter Visit Diagnoses Diagnosis Endometrial cancer (HCC-CMS) (HCC) - Sonia reggie Malignant neoplasm of corpus uteri, exce pt isthmus documented in this encounter Administered Medications Inactive Administered Medications - up to 3 most recent administrations Medication Order MAR Action Action Date Dose Rate Site acetaminophen (TYLENOL) tablet Given 07/15/2016 18:05 EDT 1,000 mg 1,000 mg 1,000 mg, oral, PRN, 2 doses, Starting on Fri07/15/16 at 1554, Until Fri07/15/16 at 1945, Pain, Routine, Recovery (only) acetaminophen (TYLENOL) tablet 325-650 m g Given 07/16/2016 9:36 EDT 650 mg 325-650 mg, oral, EVERY 4 HOURS PRN, Starting on Fri07/15/16 at 1952, Until Fri07/16/16 at 1356, Pain, Routine, On Unit ceFAZolin (ANCEF) syringe 2 g Given 07/15/2016 13:09 EDT 2 g 2 g, intravenous, Administer over 10 Minutes, PRE-OP ONCE, 1 dose, On Fri07/15/16 at 1130, Routine, Pre-Op DOS Rx Approved diphenhydrAMINE (BENADRYL) capsule 25-50 mg 25-50 mg, oral, EVERY 6 HOURS PRN, Starting on 06/20 at 1952, Until Fri07/16/16 at 1356, Itching, Routine, On Unit diphenhydrAMINE (BENADRYL) injection 25- 50 mg 25-50 mg, intravenous, EVERY 6 HOURS PRN , Starting on Fri07/15/16 at 1952, Until Fri07/16/16 at 1356, Itching, Routine, On Unit docusate sodium (COLACE) capsule 100 mg Given 07/16/2016 9:36 EDT 100 mg 100 mg, oral, 2 TIMES DAILY, First dose on Fri07/15/16 at 2100, Until Discontinued, Routine, On Unit Given 07/15/2016 21:33 EDT 100 mg fentaNYL citrate (PF) 50 mcg/mL injection Given 07/15/2016 18:35 EDT 25 mcg 25-100 mcg 25-100 mcg, intravenous, EVERY 5 MIN PRN, Starting on Fri07/15/16 at 1554, Until Fri07/15/16 at 1945, Pain, Routine, Recovery (only) fexofenadine (RADHA) 12 hr tablet 60 m g Given 07/15/2016 22:11 EDT 60 mg 60 mg, oral, AT BEDTIME, First dose on Fri07/15/16 at 2100, Until Discontinued, Routine fluticasone (FLONASE) nasal spray 100 mc g 100 mcg, nasal - both, 2 TIMES DAILY PRN , Starting on Fri07/15/16 at 2057, Until Fri07/16/16 at 1356, Rhinitis, Routine heparin injection 5,000 Units Given 07/16/2016 9:36 EDT 5,000 Units 5,000 Units, subcutaneous, EVERY 8 HOURS, First dose on Fri07/16/16 at 0000, Until Discontinued, Routine, On Unit Given 07/16/2016 1:28 EDT 5,000 Units heparin injection 5,000 Units Given 07/15/2016 11:40 EDT 5,000 Units 5,000 Units, subcutaneous, PRE-OP ONCE, 1 dose, On Fri07/15/16 at 1130, Routine, Pre-Op DOS Rx Approved HYDROmorphone (DILAUDID) injection 0.2-1 mg Given 07/15/2016 18:06 EDT 0.5 mg 0.2-1 mg, intravenous, EVERY 10 MINUTES PRN, Starting on Fri07/15/16 at 1554, Until Fri07/15/16 at 1945, Pain, Routine, Recovery (only) Given 07/15/2016 17:22 EDT 0.5 mg lactated ringers (LR) infusion New Bag 07/16/2016 2:17 EDT 140 mL/hr at 140 mL/hr, intravenous, CONTINUOUS, Starting on Fri07/15/16 at 1830, Until Fri07/16/16 at 0903, Routine, On Unit New Bag 07/15/2016 18:30 EDT 140 mL/hr lactated ringers (LR) infusion New Bag 07/15/2016 11:18 EDT 25 mL/hr at 25 mL/hr, intravenous, CONTINUOUS, Starting on Fri07/15/16 at 1130, Until Fri07/15/16 at 1954, Routine, Pre-Op DOS Rx Approved levothyroxine (SYNTHROID) tablet 25 mcg Given 07/16/2016 6:01 EDT 25 mcg 25 mcg, oral, DAILY BEFORE BREAKFAST, First dose on Fri07/16/16 at 0700, Until Discontinued, Routine lisinopril (PRINIVIL, ZESTRIL) tablet 20 mg Given 07/15/2016 22:12 EDT 20 mg 20 mg, oral, AT BEDTIME, First dose on Fri07/15/16 at 2100, Until Discontinued, Routine ondansetron (PF) (ZOFRAN) injection 2-4 mg Given 07/15/2016 18:06 EDT 4 mg 2-4 mg, intravenous, PRN, 1 dose, Starting on Fri07/15/16 at 1554, Until Fri07/15/16 at 1806, Nausea, Vomiting, Routine, Recovery (only) ondansetron (PF) (ZOFRAN) injection 4 mg 4 mg, intravenous, EVERY 6 HOURS PRN, St arting on Fri07/15/16 at 1952, Until Fri07/16/16 at 1356, Nausea, Vomiting, Routine, On Unit ondansetron (ZOFRAN-ODT) disintegrating tablet 4 mg 4 mg, oral, EVERY 6 HOURS PRN, Starting on Fri07/15/16 at 1952, Until Fri07/16/16 at 1356, Nausea, Routine, On Unit oxyCODONE (ROXICODONE) immediate release tablet Given 07/15/2016 18:05 EDT 10 mg 5 mg 5 mg, oral, PRN, 2 doses, Starting on Fri07/15/16 at 1554, Until Fri07/15/16 at 1945, Pain, Routine, Recovery (only) oxyCODONE (ROXICODONE) immediate release tablet Given 2016 9:36 EDT 10 mg 5-10 mg 5-10 mg, oral, EVERY 4 HOURS, 6 doses, First dose (after last reorder) on Fri07/15/16 at 2200, Last dose on Fri07/16/16 at 1800, Routine, On Unit Given 07/16/2016 6:00 EDT 10 mg Given 07/16/2016 1:42 EDT 10 mg oxyCODONE (ROXICODONE) immediate release tablet 5-10 mg 5-10 mg, oral, EVERY 4 HOURS PRN, Starting on 07/16 at 2200, Until Fri07/16/16 at 1356, Pain, Routine, On Unit promethazine (PHENERGAN) tablet 12.5-25 mg Given 07/15/2016 20:25 EDT 25 mg 12.5-25 mg, oral, EVERY 6 HOURS PRN, Starting on Fri07/15/16 at 1952, Until Fri07/16/16 at 1356, Nausea, Routine, On Unit senna (SENOKOT) tablet 1 Tab Given 07/16/2016 9:36 EDT 1 Tablet 1 Tablet, oral, 2 TIMES DAILY, First dose on Fri07/15/16 at 2100, Until Discontinued, Routine Given 07/15/2016 21:32 EDT 1 Tablet simvastatin (ZOCOR) tablet 20 mg Given 07/15/2016 22:12 EDT 20 mg 20 mg, oral, AT BEDTIME, First dose on 07/15/16 at 2100, Until Discontinued, Routine sodium chloride 0.9 % flush 3 mL Given 07/16/2016 9:37 EDT 3 mL 3 mL, intravenous, EVERY 8 HOURS, First dose on Fri07/16/16 at 0930, Until Discontinued, Routine documented in this encounter Discontinued Medications Medication Sig Discontinue Reason Start Date End Date calcium-vitamin D Take 1 Tab by mouth 2 Therapy completed 07/10/2016 (OS-ANABELA D) 500 times daily with mg(1,250mg) -200 unit breakfast and dinner. per tablet folic acid (FOLVITE) 1 Take 1 mg by mouth Dose adjustment 07/10/2016 mg tablet daily. docusate sodium Take 100 mg by mouth 06/20 (COLACE) 100 mg capsule at bedtime. documented as of this encounter Historical Medications This list may reflect changes made after this encounter. Medication Sig Dispensed Refills Start Date End Date Selenium 200 mcg tablet Take 200 mg by mouth 0 daily. simvastatin (ZOCOR) 20 mg Take 20 mg by mouth 0 tabletIndications: hold at bedtime. until 2 weeks post radiation therapy mupirocin (BACTROBAN) 2 % Apply topically as 0 ointment needed. fluticasone (FLONASE) 50 Instill 100 mcg into 0 mcg/actuation nasal spray both nostrils as needed. Reported on 07/15/2016 hydrocortisone 0.5 % Apply topically once 0 cream a week. Potassium Gluconate 595 Take 1 Tab by mouth 0 mg (99 mg) tablet daily. Magnesium 250 mg tablet Take 1 Tab by mouth 0 daily. folic acid (FOLVITE) 400 Take 800 mcg by 0 mcg tablet mouth daily. cholecalciferol, Vitamin Take 400 Units by 0 D3, 1,000 unit tablet mouth daily. Methylcellulose, Take 500 mg by mouth 0 04/18/2020 Laxative, 500 mg daily. tabletIndications: patient not taking Lactobacillus acidophilus Take 1 Cap by mouth 0 07/30/2018 (PROBIOTIC) 10 billion daily. cell capsule psyllium, 5.8 G, Take 1 Packet by 0 (METAMUCIL) packet mouth daily. added in this encounter Active and Recently Administered Medications Times are shown in EDT. Scheduled Medication Order 07/14/2016 07/15/2016 07/16/2016 ceFAZolin (ANCEF) syringe 2 g (COMPLETED) 1309 (Given - Provider: Jaky Coy CRNA) 2 g, intravenous, Administer over 10 Min utes, PRE-OP ONCE, 1 dose, Fri07/15/16 at 1130, Routine docusate sodium (COLACE) capsule 100 mg 213 (Given - Provider: Vesta Holt, RN) 0936 (Given - Provider: Layla madrid, RN) 100 mg, oral, 2 TIMES DAILY, First dose on Fri07/15/16 at 2100, Until Discontinued, Routine fexofenadine (RADHA) 12 hr tablet 60 mg 2210 (Given - Provider: Vesta Holt, ASHLEE) 60 mg, oral, AT BEDTIME, First dose on M on 07/15/16 at 2100, Until Discontinued, Routine heparin injection 5,000 Units 05 18 (Given - Provider: Fanta Hubbard, ASHLEE)09 (Given - Provider: Layla Schneider, RN) 5,000 Units, subcutaneous, EVERY 8 HOURS , First dose on Fri07/16/16 at 0000, Until Discontinued, Routine heparin injection 5,000 Units (COMPLETED) 1140 (Given - Provider: Nan Ny, ASHLEE) 5,000 Units, subcutaneous, PRE-OP ONCE, 1 dose, Fri07/15/16 at 1 130, Routine levothyroxine (SYNTHROID) tablet 25 mcg 06 (Given - Provider: Fanta Hubbard, ASHLEE) 25 mcg, oral, DAILY BEFORE BREAKFAST, Fi rst dose on Fri07/16/16 at 0700, Until Discontinued, Routine lisinopril (PRINIVIL, ZESTRIL) tablet 20 mg 2211 (Given - Provider: Vesta Holt, ASHLEE) 20 mg, oral, AT BEDTIME, First dose on M on 07/15/16 at 2100, Until Discontinued, Routine oxyCODONE (ROXICODONE) immediate release tablet 5-10 mg(Link ed Group 1) 2212 (Given - Provider: Vesta Holt, ASHLEE) 014 (Given - Provider: Fanta Hubbard, RN)0600 (Given - Provider: Fanta Hubbard, RN)0936 (Given - Provider: Layla Schneider, RN) 5-10 mg, oral, EVERY 4 HOURS, 6 doses, F irst dose on Fri07/15/16 at 2200, Last dose on Fri07/16/16 at 1800, Routine senna (SENOKOT) tablet 1 Tab 2 (Given - Provi xochitl: Vesta Holt RN) 0936 (Given - Provider: Layla Schneider, RN) 1 Tab, oral, 2 TIMES DAILY, First dose o n Fri07/15/16 at 2100, Until Discontinued, Routine simvastatin (ZOCOR) tablet 20 mg 2 (G iven - Provider: Vesta Holt, ASHLEE) 20 mg, oral, AT BEDTIME, First dose on M on 07/15/16 at 2100, Until Discontinued, Routine sodium chloride 0.9 % flush 3 mL 0937 (Given - Provider: Layla Schneider RN) 3 mL, intravenous, EVERY 8 HOURS, First dose on Fri07/16/16 at 0930, Until Discontinued, Routine Continuous Medication Order 07/14/2016 07/15/2016 07/16/2016 lactated ringers (LR) infusion (CANCELED) 1830 (New Bag - Provider: Micki Flores, ASHLEE) 0217 (New Bag - Provider: Shaq akhtar RN) at 140 mL/hr, intravenous, CONTINUOUS, S tarting Fri07/15/16 at 1830, Until Fri07/16/16 at 0903, Routine lactated ringers (LR) infusion (CANCELED) 1118 (New Bag - Provider: Hanh Montero, ASHLEE)1657 (IV Stopped - Provider: Micki Flores, ASHLEE) at 25 mL/hr, intravenous, CONTINUOUS, St arting Fri07/15/16 at 1130, Until Fri07/15/16 at 1954, Routine PRN Medication Order 07/14/2016 07/15/2016 07/16/2016 acetaminophen (TYLENOL) tablet 1,000 mg (CANCELED) 1805 (Given - Provider: Micki Flores, ASHLEE) 1,000 mg, oral, PRN, 2 doses, Starting M on 07/15/16 at 1554, Until Fri07/15/16 at 1945, Pain, Routine acetaminophen (TYLENOL) tablet 325-650 mg 0936 (Given - Provider: Layla Schneider RN) 325-650 mg, oral, EVERY 4 HOURS PRN, Sta rting Fri07/15/16 at 1952, Until Fri07/16/16 at 1356, Pain, Routine diphenhydrAMINE (BENADRYL) capsule 25-50 mg(Linked Group 2) 25-50 mg, oral, EVERY 6 HOURS PRN, Start ing Fri07/15/16 at 1952, Until Fri07/16/16 at 1356, Itching, Routine diphenhydrAMINE (BENADRYL) injection 25-50 mg(Linked Group 2) 25-50 mg, intravenous, EVERY 6 HOURS PRN , Starting Fri07/15/16 at 1952, Until Fri07/16/16 at 1356, Itching, Routine fentaNYL citrate (PF) 50 mcg/mL injection 25-100 mcg (CANCEL ED) 183 (Given - Provider: Micki Flores RN) 25-100 mcg, intravenous, EVERY 5 MIN PRN , Starting Fri07/15/16 at 1554, Until Fri07/15/16 at 1945, Pain, Routine fluticasone (FLONASE) nasal spray 100 mcg 100 mcg, nasal - both, 2 TIMES DAILY PRN , Starting Fri07/15/16 at 2057, Until Fri07/16/16 at 1356, Rhinitis, Routine HYDROmorphone (DILAUDID) injection 0.2-1 mg (CANCELED) 172 (Given - Provider: Micki Flores, ASHLEE)180 (Given - Provider: Micki Flores, ASHLEE) 0.2-1 mg, intravenous, EVERY 10 MINUTES PRN, Starting Fri07/15/16 at 1554, Until Fri07/15/16 at 1945, Pain, Routine morphine injection 2-4 mg 2-4 mg, intravenous, EVERY 2 HOURS PRN, Starting Fri07/15/16 at 1952, Until Fri07/16/16 at 1356, Pain, Routine ondansetron (PF) (ZOFRAN) injection 2-4 mg (COMPLETED) 1806 (Given - Provider: Micki Flores, RN) 2-4 mg, intravenous, PRN, 1 dose, Starti ng Fri07/15/16 at 1554, Until Discontinued, Nausea, Vomiting, Routine ondansetron (PF) (ZOFRAN) injection 4 mg(Linked Group 3) 4 mg, intravenous, EVERY 6 HOURS PRN, St arting Fri07/15/16 at 1952, Until Fri07/16/16 at 1356, Nausea, Vomiting, Routine ondansetron (ZOFRAN-ODT) disintegrating tablet 4 mg(Linked Group 3) 4 mg, oral, EVERY 6 HOURS PRN, Starting Fri07/15/16 at 1952, Until Fri07/16/16 at 1356, Nausea, Routine oxyCODONE (ROXICODONE) immediate release tablet 5 mg (CANCEL ED) 1804 (Given - Provider: Micki Flores, ASHLEE) 5 mg, oral, PRN, 2 doses, Starting Fri at 1554, Until Fri07/15/16 at 1945, Pain, Routine oxyCODONE (ROXICODONE) immediate release tablet 5-10 mg(Linked G roup 1) 5-10 mg, oral, EVERY 4 HOURS PRN, Starti ng Fri07/16/16 at 2200, Until Fri07/16/16 at 1356, Pain, Routine promethazine (PHENERGAN) tablet 12.5-25 mg 2024 (Given - Provider: Vesta Holt RN) 12.5-25 mg, oral, EVERY 6 HOURS PRN, Sta rting Fri07/15/16 at 1952, Until Fri07/16/16 at 1356, Nausea, Routine Linked Groups Order Group 1: oxyCODONE (ROXICODONE) immediate release tablet 5-10 mgJump to med 5-10 mg, oral, EVERY 4 HOURS, 6 doses, F irst dose on Fri07/15/16 at 2200, Last dose on Fri07/16/16 at 1800, Routine Followed by oxyCODONE (ROXICODONE) immediate release tablet 5-10 mgJump to med 5-10 mg, oral, EVERY 4 HOURS PRN, Starti ng Fri07/16/16 at 2200, Until Fri07/16/16 at 1356, Pain, Routine Group 2: diphenhydrAMINE (BENADRYL) capsule 25-50 mgJump to med 25-50 mg, oral, EVERY 6 HOURS PRN, Start ing Fri07/15/16 at 1952, Until Fri07/16/16 at 1356, Itching, Routine Or diphenhydrAMINE (BENADRYL) injection 25-50 mgJump to med 25-50 mg, intravenous, EVERY 6 HOURS PRN , Starting Fri07/15/16 at 1952, Until Fri07/16/16 at 1356, Itching, Routine Group 3: ondansetron (PF) (ZOFRAN) injection 4 mgJump to med 4 mg, intravenous, EVERY 6 HOURS PRN, St arting Fri07/15/16 at 1952, Until Fri07/16/16 at 1356, Nausea, Vomiting, Routine Or ondansetron (ZOFRAN-ODT) disintegrating tablet 4 mgJump to med 4 mg, oral, EVERY 6 HOURS PRN, Starting Fri07/15/16 at 1952, Until Fri07/16/16 at 1356, Nausea, Routine documented in this encounter Orders Medications Ordered That Might Not Have Count Last Ord ered Date First Ordered Date Been Administered atropine 0.1 mg/mL syringe 0.5 mg 1 07/15/2016 diphenhydrAMINE (BENADRYL) capsule 25-50 1 017 mg diphenhydrAMINE (BENADRYL) injection 25-50 1 07/15 mg diphenhydrAMINE (BENADRYL) injection 6.25 1 2016 mg fluticasone (FLONASE) nasal spray 100 mcg 2 2016 ibuprofen (MOTRIN) tablet 600 mg 1 07/15/2016 ketOROLAC (TORADOL) injection 15 mg 1 07/15/2016 lactated ringers (LR) infusion 1 07/15/2016 morphine injection 2-4 mg 1 07/15/2016 naloxone (NARCAN) injection 0.2 mg 1 07/15/2016 ondansetron (PF) (ZOFRAN) injection 4 mg 1 017 ondansetron (ZOFRAN-ODT) disintegrating 1 07/16/19 17 tablet 4 mg oxyCODONE (ROXICODONE) immediate release 3 017 tablet 5-10 mg Procedures Count Last Ordered Date First Ordered Date ECG REPORT - SCANNED 1 07/19/2016 Diet Count Last Ordered Date First Ordered Date DISCHARGE DIET 1 07/16/2016 Nursing Count Last Ordered Date First Ordered Date ACTIVITY INSTRUCTIONS 4 07/16/2016 BATHING INSTRUCTIONS 2 07/16/2016 WOUND CARE INSTRUCTIONS 4 07/16/2016 APPLY WARMING BLANKET 1 07/15/2016 INSERT PERIPHERAL IV 1 07/15/[address] PL[address] SEQUENTIAL COMPRESSION DEVICE 1 07/15/2016 Admission Count Last Ordered Date First Ordered Date STATUS: INPATIENT POST-PROCEDURE ADMISSION 1 07/16 UPGRADE STATUS: OUTPATIENT SURGICAL OP 1 07/15/2016 BED/SERVICES ORDERS - SCANNED 1 07/08/2016 Transfer Count Last Ordered Date First Ordered Date UR PATIENT STATUS CHANGE 2 08/14/2016 017 NOTIFY PPS OF DISCHARGE COMPLETE 1 07/16/2016 NOTIFY PPS PATIENT ARRIVAL IN PACU 1 07/15/2016 NOTIFY PPS PATIENT TRANSFERRED OUT OF PACU 1 07/15 PPS NOTIFICATION OF PATIENT ARRIVAL ON 7 UNIT Discharge Count Last Ordered Date First Ordered Date DISCHARGE PATIENT 1 07/16/2016 documented in this encounter Care Teams Immigration Coordinator Relationship Specialty Start Date End Date Paula Engel NP PCP - General 06/24/16 04/17/17 documented as of this encounter
--- OUTSIDE RECORDS SUMMARY | 2022-01-25 01:50 | XMS_ITS | Encounter Summary ---
:1945 Author Organization [facility] Address [address] [place] [address] Care Team Providers Name Role Phone Paula Engel NP Primary Care Provider Unavailable Reason for Referral Consult (Routine) - Specialty Report Received Specialty Diagnoses / Procedures Referred By Contact Refer red To Contact Gynecologic Oncology Diagnoses Endometrial cancer ([facility]) ([facility]) Alexus Lopez, Mp4 Student Education Specialist Oncology MD [address] [place] [id number] [facility] Phone: [employer], [address] [place] [address] Referral ID Status Reason Start Expiration Visits Visits Date Date Requested Authorized [id number] Specialty Specialty 07/02/2016 1 1 Report Services Received Required Question Answer Reason for Request: endometrial cancer Reason for Visit Reason Onset Date Comments Results 07/02/2016 Encounter Details Date Type Department Care Team Description 07/02/2016 Telephone [facility] Women's Alexus Roberto MD Results Services - [facility] [address] [address] [employer], [place] [phone] (Wo rk) Social History Tobacco Use Types Packs/Day Years Used Date Never Assessed Sex Assigned at Date Recorded Female 09/25/2021 8:41 EDT documented as of this encounter Miscellaneous Notes Telephone Encounter - Alexus Lopez MD - 07/02/2016 1106 EDT Patient called with results and recommendations. I had previously discussed with patient possible results of biopsy and told her today she has endometrial cancer. I briefly discussed therapy options and follow up for treatment with APPEALS COORDINATOR ONC. She was offered appointments in next few days and will see Dr. Banegas 07/04 at 1 pm. documented in this encounter Plan of Treatment Upcoming Encounters Date Type Specialty Care Team Description 03/28/2022 Office Visit Gynecologic Oncology Kush Lzi PA-C [address] [facility], [facility], [address] [place], [place] [phone] (Wo rk) Scheduled Referrals Name Type Priority Associated Diagnoses Order S chedule AMB CONS/FOLLOW UP Outpatient Referral Routine Endometrial Can cer Ordered: GYNECOLOGIC ONCOLOGY ([facility]) 017 documented as of this encounter Visit Diagnoses Diagnosis Endometrial cancer ([facility]) ([facility]) - Sonia paredes Malignant neoplasm of corpus uteri, exce pt isthmus documented in this encounter Care Teams Weight Calculator Relationship Specialty Start Date End Date Paula Engel NP PCP - General 06/24/16 04/17/17 documented as of this encounter
--- OUTSIDE RECORDS SUMMARY | 2022-01-25 01:50 | XMS_ITS | Encounter Summary ---
:1945 Author Organization [facility] Address [address] [place] [address] Care Team Providers Name Role Phone Paula Engel ASSESSMENT SPECIALIST Primary Care Provider Unavailable Encounter Details Date Type Department Care Team Description 07/02/2016 Documentation Visit [facility] Leti Lima Gynecologic Oncology - RN [address] [address] Social History Tobacco Use Types Packs/Day Years Used Date Never Assessed Sex Assigned at Date Recorded Female 09/25/2021 8:41 EDT documented as of this encounter Progress Notes Leti Lima RN - 07/02/2016 1103 EDT Usability Engineer onc referral triaged Scheduled 07/04 documented in this encounter Plan of Treatment Upcoming Encounters Date Type Specialty Care Team Description 03/28/2022 Office Visit Gynecologic Oncology Kush Liz PA-C 111 [facility], [address] [place], [place] [phone] (Wo rk) documented as of this encounter Visit Diagnoses Not on filedocumented in this encounter Care Teams Eye Dropper Assembler Relationship Specialty Start Date End Date Paula Engel NP PCP - General 06/24/16 04/17/17 documented as of this encounter
--- OUTSIDE RECORDS SUMMARY | 2022-01-25 01:50 | XMS_ITS | Encounter Summary ---
:1945 Author Organization [facility] Address [address] [place] [address] Care Team Providers Name Role Phone Paula Engel SUPERVISOR TYPE BAR AND SEGMENT Primary Care Provider Unavailable Encounter Details Date Type Department Care Team Description 06/26/2016 Results Only [facility] Reproductive Meredith Hays, Imaging Medicine & Infertility [facility] - [phone] [place] [address] [place] [phone] (Wo rk) Social History Tobacco Use Types Packs/Day Years Used Date Never Assessed Sex Assigned at Date Recorded Female 09/25/2021 8:41 EDT documented as of this encounter Plan of Treatment Upcoming Encounters Date Type Specialty Care Team Description 03/28/2022 Office Visit Gynecologic Oncology Kush Liz PA-C [address] [place] [address], [facility] [address] [place] [phone] (Wo rk) documented as of this encounter Procedures Procedure Name Priority Date/Time Associated Comments Diagnosis CREDIT RISK ANALYTICS MANAGER US PELVIS 06/26/2016 13:56 Results fo r this TRANSVAGINAL EST procedure are i n the results section. documented in this encounter Results CREDIT RISK ANALYTICS MANAGER US PELVIS TRANSVAGINAL (06/26/2016 13:56 EST) Anatomical Region Laterality Modality Other Specimen Narrative [facility] - 06/26/2016 14:36 EST Indication Postmenopausal bleeding. Uterus ======= Uterus: ?Anteverted Uterus position: ?? anteverted Myometrium: ?Heterogeneous Endometrium: ?? Thickened heterogenous w ith internal vascularity. Cervix details: ?possible polyp Uterus long ?8.7 cm Uterus ap ??4.0 cm Uterus tr ??5.5 cm Endometrial thickness, total ?? 23.9 mm Fibroids: ??Fibroids identified Uterine fibroids findings: Submucous Uterine fibroid diameter 1 8.7 mm Uterine fibroid diameter 2 7.9 mm Uterine fibroid diameter 3 7.3 mm Uterine fibroid mean diameter ??8.0 mm Uterine fibroid volume 0.263 cm cubed Uterine fibroids findings: Intramural. P osterior Uterine fibroid diameter 1 12.0 mm Uterine fibroid diameter 2 11.0 mm Uterine fibroid diameter 3 16.7 mm Uterine fibroid mean diameter ??13.2 mm Uterine fibroid volume 1.154 cm cubed Right Ovary Rt ovary: ??Visualized, normal appearanc e Rt ovary D1 ?2.1 cm Rt ovary D2 ?1.5 cm Rt ovary D3 ?1.1 cm Rt ovary mean ??1.6 cm Rt ovary Vol. ??1.8 cm cubed Left Ovary Lt ovary: ??Visualized, normal appearanc e Lt ovary D1 ?2.3 cm Lt ovary D2 ?1.6 cm Lt ovary D3 ?1.7 cm Lt ovary mean ??1.9 cm Lt ovary Vol. ??3.3 cm cubed Lt ovarian cyst(s): ?Cysts identifie d Left ovarian cyst findings: ?Simple anechoic cyst Left ovarian cyst diameter 1 ?? 9.1 mm Left ovarian cyst diameter 2 ?? 8.2 mm Left ovarian cyst diameter 3 ?? 10.6 mm Left ovarian cyst mean diameter ?9.3 mm Left ovarian cyst volume ?? 0.414 cm cub ed [place] Appears normal. No free fluid visualized . Impression Transvaginal Pelvic [id number] 1. Thickened heterogenous endometrium co ncerning for malignancy, less likely hypreplasia or other cause o f thickened endomeytrium. There is irregular growths into the myom etrium which may be tumor extension verses fibroids. 2. Ovaries without concerning features a nd consistent with menopausal status. Follow-up Follow-up as clinically indicated. Comment ========= Ultrasound findings discussed w/patient. Consult and endometrial biopsy done. See office note. Procedure Note Alexus Lopez MD - 06/26/2016 Indication Postmenopausal bleeding. Uterus ======= Uterus: Anteverted Uterus position: anteverted Myometrium: Heterogeneous Endometrium: Thickened heterogenous with internal vascularity. Cervix details: possible polyp Uterus long 8.7 cm Uterus ap 4.0 cm Uterus tr 5.5 cm Endometrial thickness, total 23.9 mm Fibroids: Fibroids identified Uterine fibroids findings: Submucous Uterine fibroid diameter 1 8.7 mm Uterine fibroid diameter 2 7.9 mm Uterine fibroid diameter 3 7.3 mm Uterine fibroid mean diameter 8.0 mm Uterine fibroid volume 0.263 cm cubed Uterine fibroids findings: Intramural. P osterior Uterine fibroid diameter 1 12.0 mm Uterine fibroid diameter 2 11.0 mm Uterine fibroid diameter 3 16.7 mm Uterine fibroid mean diameter 13.2 mm Uterine fibroid volume 1.154 cm cubed Right Ovary Rt ovary: Visualized, normal appearance Rt ovary D1 2.1 cm Rt ovary D2 1.5 cm Rt ovary D3 1.1 cm Rt ovary mean 1.6 cm Rt ovary Vol. 1.8 cm cubed Left Ovary Lt ovary: Visualized, normal appearance Lt ovary D1 2.3 cm Lt ovary D2 1.6 cm Lt ovary D3 1.7 cm Lt ovary mean 1.9 cm Lt ovary Vol. 3.3 cm cubed Lt ovarian cyst(s): Cysts identified Left ovarian cyst findings: Simple anech oic cyst Left ovarian cyst diameter 1 9.1 mm Left ovarian cyst diameter 2 8.2 mm Left ovarian cyst diameter 3 10.6 mm Left ovarian cyst mean diameter 9.3 mm Left ovarian cyst volume 0.414 cm cubed [place] Appears normal. No free fluid visualized . Impression Transvaginal Pelvic [id number] 1. Thickened heterogenous endometrium co ncerning for malignancy, less likely hypreplasia or other cause o f thickened endomeytrium. There is irregular growths into the myom etrium which may be tumor extension verses fibroids. 2. Ovaries without concerning features a nd consistent with menopausal status. Follow-up Follow-up as clinically indicated. Comment ========= Ultrasound findings discussed w/patient. Consult and endometrial biopsy done. See office note. Performing Organization Address City/State/ZIP Code Phon e Number [facility] documented in this encounter Visit Diagnoses Not on filedocumented in this encounter Care Teams Supplier Relationship Director Relationship Specialty Start Date End Date Paula Engel NP PCP - General 06/24/16 04/17/17 documented as of this encounter
--- OUTSIDE RECORDS SUMMARY | 2022-01-25 01:50 | XMS_ITS | Encounter Summary ---
:1945 Author Organization [facility] Address [address] [place] [address] Care Team Providers Name Role Phone Paula Engel MANAGER SEARCH ENGINE Primary Care Provider Unavailable Encounter Details Date Type Department Care Team Description 06/26/2016 Results Only [facility] Raisa Rivas MD Women's Services - [phone] [place] [phone] (Wo rk) Social History Tobacco Use Types Packs/Day Years Used Date Never Assessed Sex Assigned at Date Recorded Female 09/25/2021 8:41 EDT documented as of this encounter Plan of Treatment Upcoming Encounters Date Type Specialty Care Team Description 03/28/2022 Office Visit Gynecologic Oncology Kush Liz PA-C [address] [place] [address] [address] [place] [phone] (Wo rk) documented as of this encounter Procedures Procedure Name Priority Date/Time Associated Diagnosis Comme nts SURGICAL PATHOLOGY Routine 06/26/2016 16:23 Resul ts for this EST procedure are i n the results section. documented in this encounter Results SURGICAL PATHOLOGY (06/26/2016 16:23 EST) Pathology SURGICAL PATHOLOGY REPORT [facility] Report: Reports generated via electronic interface conta in original data; [facility] however they are lacking the format of the original re port. SERVICES Caution should be taken when reading/interpreting unfo rmatted reports. Name: ? MADDIE WILCOX ? Accession #: ? [id number] ? : ? 1945 (Age: 8 0) ??F ? Collect Date: ? 06/26/2016 ? Location: ? OBGYN ? Receive Date: ? 06/28/19 17 ? Provider: ADRIANA RIVAS MD Copy to: ? Final Pathologic Diagnosis: ENDOMETRIUM, BIOPSY: - Endometrioid adenocarcinoma, FIGO grade 1. See comme nt. Comment: Pre Billing Clinician slides of this case were reviewed at [facility] intradepartmental consultation conference. Dr. Dsouza 06/28/2016 10:40 AM Document reviewed and electronically signed by: RANDOLPH DSOUZA MD Report ??Date: 06/28/2016 14:56 By the signature above, the attending physician certif ies that he/she has personally conducted a gross and/or microscopic examin ation of the described specimens and rendered or confirmed the above diagnosi s. Specimen(s) Received: EMBx Clinical History: Bleeding; clinical diagnosis code: N95.0 Gross Description: ? Received in formalin labelled with proper patient identification (initials P, M) and not otherwise specified are soft mccormick-valencia ir regular tissues with admixed blood clot measuring 2.5 x 2.0 x 1.0 cm in aggregate. Entirely submitted in 1-3. SUJEY Sommer (ASCP) 06/27/2016 5:15 PM End of Report Specimen Performing Organization Address City/State/ZIP Code Phon e Number [facility] [address] [place] [address] SERVICES documented in this encounter Visit Diagnoses Not on filedocumented in this encounter Care Teams Chinese Instructor Relationship Specialty Start Date End Date Paula Engel NP PCP - General 06/24/16 04/17/17 documented as of this encounter
--- OUTSIDE RECORDS SUMMARY | 2022-01-25 01:50 | XMS_ITS | Encounter Summary ---
:1945 Author Organization [facility] Address [address] [place] [address] Care Team Providers Name Role Phone Eve Londono MD Primary Care Provider Encounter Details Date Type Department Care Team Description 06/18/2018 Orders Only [facility] Leti Lima Vagin al mass (Primary Dx); Gynecologic Oncology - RN Endo etrial cancer (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 of shoe repair cobbler onc TB discussion Leti Lima RN 06/18/2018 15:38 documented in this encounter Plan of Treatment Upcoming Encounters Date Type Specialty Care Team Description 03/28/2022 Office Visit Gynecologic Oncology Kush Liz PA-C [address] [facility], [facility], [address] [place] [phone] (Wo rk) documented as of this encounter Visit Diagnoses Diagnosis Vaginal mass - Primary Other specified symptom associated with female genital organs Endometrial cancer (HCC-CMS) (HCC) Malignant neoplasm of corpus uteri, exce pt isthmus documented in this encounter Care Teams Director Digital Communications Relationship Specialty Start Date End Date Eve Londono MD PCP - General 04/18/17 [address] [place] [address] documented as of this encounter
--- OUTSIDE RECORDS SUMMARY | 2022-01-25 01:50 | XMS_ITS | Encounter Summary ---
:1945 Author Organization [facility] Address [address] [place] [id number] Care Team Providers Name Role Phone Unknown, Provider Primary Care Provider Reason for Visit Reason Onset Date Comments Vaginal Bleeding 06/21/2016 Encounter Details Date Type Department Care Team Description 06/21/[address] [facility] Women's Veronika Lala RN Vaginal Bleeding Services - [facility] [address] [place] [address] Social History Tobacco Use Types Packs/Day Years Used Date Never Assessed Sex Assigned at Date Recorded Female 09/25/2021 8:41 EDT documented as of this encounter Miscellaneous Notes Telephone Encounter - Veronika Lala RN - 06/21/2016 1050 EST PC/Pt: 71 y.o. calling with PMB. Had slight vaginal spotting 2 mos ago and yesterday had brb vaginally that has tapered to brown tissue this AM, denies cramping or pain. H/O nml PAPs last done at age 66, had normal annual exam 2 yrs ago. U/S appt made with Dr Lopez for Friday06/26/16 1:45 PM. Confirmed with patient for 1:30 pm arrival. Directions given and sent to home address. documented in this encounter Plan of Treatment Upcoming Encounters Date Type Specialty Care Team Description 03/28/2022 Office Visit Gynecologic Oncology Kush Liz PA-C [address] [facility] venue [facility], [facility], [address] [place], [place] [phone] (Wo rk) documented as of this encounter Visit Diagnoses Not on filedocumented in this encounter Care Teams Diamond Die Driller Relationship Specialty Start Date End Date Unknown, Provider, PCP - General 04/01/09 06/23/16 documented as of this encounter
--- OUTSIDE RECORDS SUMMARY | 2022-01-25 01:50 | XMS_ITS | Encounter Summary ---
:1945 Author Organization [facility] Address [address] [place] [address] Care Team Providers Name Role Phone Paula Engel PHONE OPERATOR Primary Care Provider Unavailable Encounter Details Date Type Department Care Team Description 07/11/2016 Hospital Encounter [facility] - Rosa M Banegas MD [address] [address] [address], [place] [phone] (Wo rk) Social History Tobacco Use Types Packs/Day Years Used Date Never Smoker Smokeless Tobacco: Never Used Alcohol Use Standard Drinks/Week Comments No 0 (1 standard drink = 0.6 oz pure alcoho l) Sex Assigned at Date Recorded Female 09/25/2021 8:41 EDT documented as of this encounter Discharge Diagnoses Diagnosis C54.1 Malignant neoplasm of endometrium- C54.1[ICD-10-CM] K76.0 Fatty (change of) liver, not elsew here classified-K76.0[ICD-10-CM] N28.1 Cyst of kidney, acquired-N28.1[ICD -10-CM] documented in this encounter Medications at Time [...] every 6 hours as needed for Pain. docusate sodium (COLACE) 100 Take 100 mg by 0 07/16/2016 mg capsule mouth at bedtime. Lactobacillus acidophilus Take 1 Cap by 0 [...] Visit Gynecologic Oncology Kush Liz PA-C [address] [place] [facility], [facility], [facility] [address] [place], [place] [phone] (Wo rk) documented as of this encounter Visit Diagnoses Not on filedocumented in this encounter Care Teams Newspaper Stuffer Relationship Specialty Start Date End Date Paula Engel NP PCP - General 06/24/16 04/17/17 documented as of this encounter
--- OUTSIDE RECORDS SUMMARY | 2022-01-25 01:50 | XMS_ITS | Encounter Summary ---
:1945 Author Organization [facility] Address [address] [place] [address] Care Team Providers Name Role Phone Eve Londono MD Primary Care Provider Reason for Visit Reason Comments Follow-up follow up anal pain/ fissure Encounter Details Date Type Department Care Team Description 11/18/2017 Office Visit [facility] Lia Doran MD Anal fissure (Primary General Surgery - [address] [place] [address] [address] [place] [address] [address], [place] [address] (Wo rk) Social History [...] fissure, unspecified-K60.2[IC D-10-CM] documented in this encounter Ordered Prescriptions Prescription Sig Dispensed Refills Start Date End Date Miscellaneous Medication Nifedipine 0.2% 1 Each 1 201706/24/2018 - See Admin Instructions ointment 15 g. Please compound for patient. Apply twice daily and after bowel movements. documented in this encounter Discharge Disposition Disposition Code Departure Means Destination Auto Discharge documented in this encounter Progress Notes Lia Doran MD - 11/18/2017 8489 EDT Subjective: Doing well. Her anal fissure has no further pain. She has had no real symptoms since then other than1 hard bowel movement about 2 weeks ago after getting off her regimen and eating a bit too much. At her last visit, she was diagnosed with a anal fissure causing anal pain--she had been restarted on nifedipine cream and miraLAX. 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 ??She has been doing much better since her last visit in terms ofanal pain and bleeding. ??She denies any further bleeding. ??She states the pain is about 90% resolved. ??She did have a hardened bowel movement about a week ago where she held the discomfort, but not as severely as before. ??She says she got off her regimen of MiraLAX because she developed bronchitisand has been on steroids and antibiotics. ?? To review her history, in 07/15/2106 Roseann underwent a da Freddie-assisted total laparoscopic hysterectomy, bilateral salpingo-oophorectomy, and bilateral sentinel hypogastric lymph node biopsies, Meckel's diverticulectomy because of a preoperative diagnosis of endometrial carcinoma. ??The final pathology report demonstrates that she has a stage IA, grade 1 endometrial adenocarcinoma.?Postoperatively, she developed obstruction which it sounds as though it may have been from constipation. ??She is given many doses of MiraLAX and this resolved. ??Along with this time she developed severe pain in her rectum which she attributed to hemorrhoids. ?? She has had hemorrhoids for 30 or 40 years. ??She states that they were much worse following this episode of constipation. ??She is recently been on fiber lax (psyllium), Dulcolax, Colace, and a probiotic. ??This is helped her to have softer stool on an every day to every other day basis. ??She deniesblood in the stool or or streaking the stool. ??The severity of the pain has improved with rectal care which is a topical lidocaine as well as with softening her stool. ??She denies fecal incontinence ?? She also states that she has a small amount of gas and occasional malodorous drainage from her vaginal os. ??She states she has had this for 50 years since the of one of her children. ??She states that it is no worse following her recent surgery. ??She is never had a history of diverticulitis. ?? Prior colonoscopy:??December 2015--[facility]??for personal history of polyps done by Dr. Conroy--rectosigmoid (4)??polypectomy with hyperplastic polyps, ascending colon polypectomy (2)??with fragments of tubular adenoma and colonic mucosa with no significant abnormality, transverse colon polypectomy (1) tubular adenoma. ??Random right colon biopsy with colonic mucosal, normal limits. Current Outpatient Prescriptions: acetaminophen (TYLENOL) 500 mg [...] mg tablet Methylcellulose, Laxative, 500 mg tablet Miscellaneous Medication - See Admin Instructions mupirocin (BACTROBAN) 2 % ointment nystatin-triamcinolone (MYCOLOG II) cream Potassium Gluconate 595 mg (99 mg) tablet psyllium, 5.8 G, (METAMUCIL) packet selenium 100 mcg tablet Selenium 200 mcg tablet simvastatin (ZOCOR) 20 mg tablet No current facility-administered medications for this visit. Past Medical History: Diagnosis Date ??? High cholesterol ??? HTN (hypertension) ??? Obesity ??? Sleep apnea No past surgical history on file. No family history on file. Objective: There were no vitals taken for this visit. General: Alert and oriented x 3, in no apparent distress Cardiovascular: regular rate and rhythm, no murmurs, rubs and gallops Respiratory: clear to auscultation bilaterally Abdomen: soft, non tender, non distended Extremities: warm well perfused with no lower extremity edema Anoscopy Procedure Note I explained the procedure, as well as benefits of the procedure, alternative treatments, and consequences of no treatment to patient. Verbal consent for the procedure was obtained. A pre-procedure verification was conducted prior to the procedure. Final verification/timeout immediately prior to procedure has been conducted by the attending provider, including all members of the procedural team as appropriate to their involvement in the procedure. The patient's identity, procedure, and when applicable the: side/site, patient position, availability of special equipment or special requirements was verbally confirmed prior to the procedure. With a dental office receptionist present the patient was placed in the left lateral decubitus position the buttocks were spread. The anoscope was inserted and the anal canal was inspected circumferentially. Findings were: On external exam, she has a skin tag at the with anoscopy, there is no proctitis or masses seen, shehas no hemorrhoids that are currently flared. A/P: Anal fissure has resolved. Recommended she continue aggressive stool softening to prevent recurrence of the fissure. She is going to continue the nifedipine cream for another 2 weeks. She may follow-up in an as-needed basis. Again, her rectovaginal fistula has been doing standing and she is not interested in surgery for this. documented in this encounter Plan of Treatment Upcoming Encounters Date Type Specialty Care Team Description 03/28/2022 Office Visit Gynecologic Oncology Kush Liz PA-C [address] [place] [address], [facility], [address] [place], [place] [phone] (Wo rk) documented as of this encounter Visit Diagnoses Diagnosis Anal fissure - Primary documented in this encounter Discontinued Medications Medication Sig Discontinue Reason Start Date End Date Miscellaneous Medication Nifedipine 0.2% Reorder 08/26/2017 11/18/2017 - See Admin Instructions ointment 30 g. Please compound for patient. Apply twice daily and after bowel movements. documented as of this encounter Historical Medications This list may reflect changes made after this encounter. Medication Sig Dispensed Refills Start Date End Date oxymetazoline HCl (NASAL by nasal route. 0 04/18/2020 SPRAY 12 HOUR NASAL) added in this encounter Care Teams Family Practice Nurse Practitioner Relationship Specialty Start Date End Date Eve Londono MD PCP - General 04/18/17 [address] [place] [address] documented as of this encounter
--- OUTSIDE RECORDS SUMMARY | 2022-01-25 01:50 | XMS_ITS | Encounter Summary ---
:1945 Author Organization [facility] Address [address] [place] [address] Care Team Providers Name Role Phone Eve Londono MD Primary Care Provider Reason for Visit Reason Onset Date Comments Medications Refill 11/18/2017 Encounter Details Date Type Department Care Team Description 11/18/2017 Telephone [facility] Jorge Bruno, Medications Refill Surgery - [facility] Oanh gorman RN [address] [place] [address] Social History Tobacco Use Types [...] this encounter Miscellaneous Notes Telephone Encounter - Cher Bullock, RN - 11/18/2017 1420 EDT Nifedipine ointment called in to [facility]. Patient contact information left in voicemail documented in this encounter Plan of Treatment Upcoming Encounters Date Type Specialty Care Team Description 03/28/2022 Office Visit Gynecologic Oncology Kush Liz PA-C [address] [facility], [address] [place], [place] [phone] (Wo rk) documented as of this encounter Visit Diagnoses Not on filedocumented in this encounter Care Teams Material Handler 2Nd Shift Relationship Specialty Start Date End Date Eve Londono MD PCP - General 04/18/17 [address] [place] [address] documented as of this encounter
--- OUTSIDE RECORDS SUMMARY | 2022-01-25 01:50 | XMS_ITS | Encounter Summary ---
:1945 Author Organization [facility] Address [address] [place] [address] Care Team Providers Name Role Phone Eve Londono MD Primary Care Provider Reason for Referral Consult (Routine/Next Available) - Specialty Report Received Specialty Diagnoses / Procedures Referred By Contact Refer red To Contact General Surgery Diagnoses Hemorrhoids, unspecified hemorrhoid type Will Banegas MD Evans, Krista E, MD [address] [place] [address], [facility], Timothy Dorsey, [address], [facility] [address] [place] [phone] Fax: Referral ID Status Reason Start Expiration Visits Visits Date Date Requested Authorized [id number] Specialty Specialty 04/23/2017 1 1 Report Services Received Required Question Answer Reason for Request: ? posterior vaginal wall def ect. please evaluate Scheduling Comments (optional ? next available describe specific scheduling needs if applicable): onsult (Routine/Next Available) - Specialty Report Received Specialty Diagnoses / Procedures Referred By Contact Refer red To Contact General Surgery Diagnoses Hemorrhoids, unspecified hemorrhoid type Will Banegas MD Evans, Krista E, MD [address] [facility] [address] [place] [address], [facility], Timothy Dorsey, [address], [facility] [address] [place] [phone] Fax: Referral ID Status Reason Start Expiration Visits Visits Date Date Requested Authorized [id number] Specialty Specialty 04/23/2017 1 1 Report Services Received Required Question Answer Reason for Request: hemorrhoids with rectal blee ding Scheduling Comments (optional ? next available please describe specific scheduling needs if applicable): Reason for Visit Reason Comments Follow-up stage IA, grade 1 endometria l adenocarcinoma, s/p surgery 06/2016 Encounter Details Date Type Department Care Team Description 04/23/2017 Office [facility] Will Banegas MD Hemorrhoids, unspecified hemorrhoid type (Primary Dx); Gynecologic Oncology [address] [place] [address] etrial cancer ([facility]) ([facility]) - [id number] [place], [place] [address]ili, [place] [phone] (Wo rk) Social History Tobacco Use Types Packs/Day Years Used Date Never Smoker Smokeless Tobacco: Never Used Alcohol Use Standard Drinks/Week Comments No 0 (1 standard drink = 0.6 oz pure alcoho l) Sex Assigned at Date Recorded Female 09/25/2021 8:41 EDT documented as of this encounter Last Filed Vital Signs Vital Sign Reading Time Taken Comments Blood Pressure 120/64 04/23/2017 1031 EST Pulse - - Temperature - - Respiratory Rate - - Oxygen Saturation - - Inhaled Oxygen Concentration - - Weight 95.3 kg (210 lb) 04/23/2017 1031 EST Height 152.4 cm (5') 04/23/2017 1031 EST Body Mass Index 41.01 04/23/2017 1031 EST documented in this encounter Functional Status [...] as of this encounter Discharge Diagnoses Diagnosis K64.9 Unspecified hemorrhoids-K64.9[ICD- 10-CM] C54.1 Malignant neoplasm of endometrium- C54.1[ICD-10-CM] documented in this encounter Discharge Disposition Disposition Code Departure Means Destination Auto Discharge documented in this encounter Progress Notes Will Banegas MD - 04/23/2017 1100 EST Just a note to keep you up to date with regards to your patient Roseann Wilcox. As you recall, on 07/15/2106 Roseann underwent a da Freddie-assisted total laparoscopic hysterectomy, bilateral salpingo-oophorectomy, and bilateral sentinel hypogastric lymph node biopsies because of a preoperative diagnosis of endometrial carcinoma. The final pathology report demonstrates that she has a stage IA, grade 1 endometrial adenocarcinoma. No evidence of lymphovascular space involvement. Today, Roseann presents fora surveillance visit for her personal history of endometrial carcinoma. Review of Systems: She states that she does have hemorrhoids that are bothering her. She states thatwhen she is unclear as to whether or not she is passing any gas per vagina. She denies any abnormal vaginal bleeding, odor or discharge. Current Outpatient Prescriptions Medication Sig Dispense Refill [...] on file Social History Narrative Review of Systems As dictated above and ROS is otherwise negative. Objective: BP 120/64 Ht 152.4 cm (60) Wt 95.3 kg (210 lb) BMI 41.01 kg/m2 Physical Exam Investigative Reporter for the physical exam was ASHLEE Schuler Pelvic exam demonstrates that the external genitalia has no evidence of any exophytic lesions. The vaginal mucosa is smooth. There is no evidence of any exophytic lesions. Vaginal apex is intact. Periurethral, perianal area is grossly within normal limits. Assessment & Plan: Today, I explained to Roseann that overall I am very pleased with how she is doing. I explained to her that with regards to her endometrial carcinoma, she is clinically without any evidence of disease. With regards to her hemorrhoids, I will make a referral for her to meet with our colorectal surgeon and with regards to her complaint of gas per vagina, I will refer her to our urogynecology service. We will also set up Roseann for surveillance with Vesta Liz in our surveillance clinic. As always, I thank you very much for allowing me to participate in the care of your patient. I will keep you informed of her progress. Sincerely and Respectfully, Will Banegas MD Director of the Gynecologic Oncology Program [facility] documented in this encounter Plan of Treatment Upcoming Encounters Date Type Specialty Care Team Description 03/28/2022 Office Visit Gynecologic Oncology Kush Liz PA-C [address] [place] [address], [address] [place], [place] [phone] (Wo rk) Scheduled Referrals Name Type Priority Associated Order Schedule Diagnoses AMB CONS/FOLLOW UP Outpatient Referral Routine Hemorrhoids, Or dered: GENERAL SURGERY unspecified 04/23/2017 hemorrhoid type AMB CONS/FOLLOW UP Outpatient Referral Routine Hemorrhoids, Or dered: UROGYNECOLOGY unspecified 04/23/2017 hemorrhoid type documented as of this encounter Visit Diagnoses Diagnosis Hemorrhoids, unspecified hemorrhoid type - Primary Endometrial cancer (HCC-CMS) (HCC) Malignant neoplasm of corpus uteri, exce pt isthmus documented in this encounter Care Teams Upholstery Handler Relationship Specialty Start Date End Date Dobbertin, Eve M, MD PCP - General 04/18/17 [address] [place] [address] documented as of this encounter
--- OUTSIDE RECORDS SUMMARY | 2022-01-25 01:50 | XMS_ITS | Encounter Summary ---
:[address] [facility] Address [address] [place] [address] Care Team Providers Name Role Phone Unknown, Provider Primary Care Provider Encounter Details Date Type Department Care Team Description 04/01/2009 Hospital Encounter [facility] - Unknown, Jc Springer MD [phone] Social History Tobacco Use Types Packs/Day Years Used Date Never Assessed Sex Assigned at Date Recorded Female 09/25/2021 8:41 EDT documented as of this encounter Discharge Disposition Disposition Code Departure Means Destination Home or Self Skilled Nursing documented in this encounter Plan of Treatment Upcoming Encounters Date Type Specialty Care Team Description 03/28/2022 Office Visit Gynecologic Oncology Kush Liz PA-C [address] [facility], [facility], [address] [place], [place] [address] (Wo rk) documented as of this encounter Procedures Procedure Name Priority Date/Time Associated Diagnosis Comme nts XR ANKLE 3V [id number] 04/01/2009 16:04 Result s for this EST procedure are i n the results section. XR KNEE 4V [id number] 04/01/2009 16:02 Results for this EST procedure are i n the results section. documented in this encounter Results XR ANKLE 3V [id number] (04/01/2009 16:04 EST) Anatomical Region Laterality Modality Other Specimen Narrative [facility] - 04/01/2009 22:16 EST XR ANKLE 3V [id number] ??Apr 01, 2009 04:04:0 0 PM XR KNEE 4V Signs and Symptoms/Comments: ??FALL Comparison: None Findings: Four views of the knee were obtained. Th ere is no evidence of fracture. The alignment of the knee is a natomic. There is no joint effusion present. Four views of the ankle demonstrate a we ll corticated osseous fragment just dorsal to the talus. This appears to be more of a remote or old injury. There are no addit ional osseous normalities. Impression: 1. Normal knee. 2. The well-corticated osseous fragment dorsal to the talus. This most likely represents a remote injury. If patient is tender in this area further evaluation is recommended. These findings were reported to Dr. Silva hernandez by Dr. Bingham at time of dictation. I have personally reviewed the images an d the above interpretation and agree with the findings. Procedure Note Michael Bingham MD / Michael Bingham MD / Michael Bingham MD - 04/01/2009 XR ANKLE 3V [id number] Apr 01, 2009 04:04:00 PM XR KNEE 4V Signs and Symptoms/Comments: FALL Comparison: None Findings: Four views of the knee were obtained. Th ere is no evidence of fracture. The alignment of the knee is a natomic. There is no joint effusion present. Four views of the ankle demonstrate a we ll corticated osseous fragment just dorsal to the talus. This appears to be more of a remote or old injury. There are no addit ional osseous normalities. Impression: 1. Normal knee. 2. The well-corticated osseous fragment dorsal to the talus. This most likely represents a remote injury. If patient is tender in this area further evaluation is recommended. These findings were reported to Dr. Silva hernandez by Dr. Bingham at time of dictation. I have personally reviewed the images an d the above interpretation and agree with the findings. Performing Organization Address City/State/ZIP Code Phon e Number [facility] XR KNEE 4V [id number] (04/01/2009 16:02 EST) Anatomical Region Laterality Modality Other Specimen Narrative [facility] - 04/01/2009 22:16 EST XR ANKLE 3V [id number] ??Apr 01, 2009 04:04:0 0 PM XR KNEE 4V Signs and Symptoms/Comments: ??FALL Comparison: None Findings: Four views of the knee were obtained. Th ere is no evidence of fracture. The alignment of the knee is a natomic. There is no joint effusion present. Four views of the ankle demonstrate a we ll corticated osseous fragment just dorsal to the talus. This appears to be more of a remote or old injury. There are no addit ional osseous normalities. Impression: 1. Normal knee. 2. The well-corticated osseous fragment dorsal to the talus. This most likely represents a remote injury. If patient is tender in this area further evaluation is recommended. These findings were reported to Dr. Silva hernandez by Dr. Bingham at time of dictation. I have personally reviewed the images an d the above interpretation and agree with the findings. Procedure Note Michael Bingham MD / Michael Bingham MD / Michael Bingham MD - 04/01/2009 XR ANKLE 3V [id number] Apr 01, 2009 04:04:00 PM XR KNEE 4V Signs and Symptoms/Comments: FALL Comparison: None Findings: Four views of the knee were obtained. Th ere is no evidence of fracture. The alignment of the knee is a natomic. There is no joint effusion present. Four views of the ankle demonstrate a we ll corticated osseous fragment just dorsal to the talus. This appears to be more of a remote or old injury. There are no addit ional osseous normalities. Impression: 1. Normal knee. 2. The well-corticated osseous fragment dorsal to the talus. This most likely represents a remote injury. If patient is tender in this area further evaluation is recommended. These findings were reported to Dr. Silva hernandez by Dr. Bingham at time of dictation. I have personally reviewed the images an d the above interpretation and agree with the findings. Performing Organization Address City/State/ZIP Code Phon e Number [facility] documented in this encounter Visit Diagnoses Not on filedocumented in this encounter Care Teams Certified Legal Investigator Relationship Specialty Start Date End Date Unknown, Provider, PCP - General 04/01/09 06/23/16 documented as of this encounter
--- OUTSIDE RECORDS SUMMARY | 2022-01-25 01:50 | XMS_ITS | Encounter Summary ---
:1945 Author Organization [facility] Address [address] [place] [address] Care Team Providers Name Role Phone Paula Engel NP Primary Care Provider Unavailable Reason for Visit Reason Onset Date Comments Follow-up 08/01/2016 Encounter Details Date Type Department Care Team Description 08/01/2016 Telephone [facility] Meaghan Schuler RN Follow-up Gynecologic Oncology - Main [address] [place] [address] [address] [place] [address] Social History Tobacco Use Types Packs/Day Years [...] Telephone Encounter - Meaghan Schuler RN - 08/01/2016 1524 EDT Roseann is s/p Da Freddie-assisted total laparoscopic hysterectomy, bilateral salpingo-oophorectomy injection, injection of ICG dye, bilateral hypogastric sentinel lymph node biopsy and cystoscopy. Also transection of the Meckel's diverticulum with Dr Gross. Roseann had problems after she was home fora while and was re-admitted at [facility]. She states she is now home, and doing well. Was discharged 08/01/16. Tolerating PO, and otherwise doing well. POV scheduled with Dr Banegas 08/12/16. Discharge summary has been requested, and will be scanned when received. documented in this encounter Plan of Treatment Upcoming Encounters Date Type Specialty Care Team Description 03/28/2022 Office Visit Gynecologic Oncology Kush Liz PA-C [address] [place] [address], [address] [place], [place] [phone] (Wo rk) documented as of this encounter Visit Diagnoses Not on filedocumented in this encounter Care Teams Fruit Coordinator Relationship Specialty Start Date End Date Paula Engel NP PCP - General 06/24/16 04/17/17 documented as of this encounter
--- OUTSIDE RECORDS SUMMARY | 2022-01-25 01:50 | XMS_ITS | Encounter Summary ---
:1945 Author Organization [facility] Address [address] [place] [address] Care Team Providers Name Role Phone Paula Engel MASTER RIGGER Primary Care Provider Unavailable Reason for Visit Reason Onset Date Comments Chills 07/28/2016 Encounter Details Date Type Department Care Team Description 07/28/2016 Telephone [facility] [place], Kay Shabazz [address] [address] [address] [facility] [phone] [place], [place] [address] (Wo rk) Social History Tobacco Use Types [...] this encounter Miscellaneous Notes Telephone Encounter - Flavia [place] MD - 07/28/2016 1548 EDT Telephone call from Roseann on 07/28/2016: Patient reports that starting on Friday of last week, she was feeling great post-operatively and stopped taking narcotics and tylenol. Then on Friday, she started not feeling well with chills and fatigue, did not check her temperature. Friday, she felt somewhat better after sleep and Tylenol, but r eports temp at home of 100.4F. She took additional tylenol, which helped. She felt constipated, so she took two Dulcolax which caused some abdominal cramping. Had a big bowel movement on Friday night, reports normal consistency, denies diarrhea. Feeling better today, taking tylenol, reports normaltemperature now of 98F. No dysuria currently, but reports some pain and burning with urination on Friday and Friday. Discussed that with mild fever, dysuria, and cramping, this may represent a urinary tract infection.The patient lives in [place], [place] and reports that there is no Urgent Care open today. Recommended that the patient go to the local ED in [facility] to be evaluated for potential source of infection. We discussed that she should also keep her appointment with Dr. Banegas tomorrow and bring any results from her ED evaluation with her. Patient reports understanding and will proceed to ED for evaluation. Flavia [place] MD 07/28/2016 16:11 PGY-2, Obstetrics and Gynecology Pager #: [phone] documented in this encounter Plan of Treatment Upcoming Encounters Date Type Specialty Care Team Description 03/28/2022 Office Visit Gynecologic Oncology Kush Liz PA-C [address] [facility], [facility], [facility] [address] [place], [place] [address] (Wo rk) documented as of this encounter Visit Diagnoses Not on filedocumented in this encounter Care Teams Fisheries Specialist Relationship Specialty Start Date End Date Paula Engel NP PCP - General 06/24/16 04/17/17 documented as of this encounter
--- OUTSIDE RECORDS SUMMARY | 2022-01-25 01:50 | XMS_ITS | Encounter Summary ---
:1945 Author Organization [facility] Address [address] [place] [address] Care Team Providers Name Role Phone Eve Londono MD Primary Care Provider Reason for Visit Reason Comments Vaginal Bleeding Encounter Details Date Type Department Care Team Description 06/16/2018 Office Visit [facility] Vesta Lizo ry of endometrial cancer (Primary Dx); [facility] - HUMAIRA Zeng Vaginal mass [id number] [place] [address] Pav[address], [address] [place] [address] (Wo rk) Social History Tobacco Use Types Packs/Day Years Used Date Never Smoker Smokeless Tobacco: Never Used Alcohol Use Standard Drinks/Week Comments No 0 (1 standard drink = 0.6 oz pure alcoho l) Sex Assigned at Date Recorded Female 09/25/2021 8:41 EDT documented as of this encounter Last Filed Vital Signs Vital Sign Reading Time Taken Comments Blood Pressure 122/64 06/16/2018 1251 EST Pulse - - Temperature - - Respiratory Rate - - Oxygen Saturation - - Inhaled Oxygen Concentration - - Weight 100.2 kg (220 lb 12.8 oz) 06/16/2018 1251 EST Height 152.4 cm (5') 06/16/2018 1251 EST Body Mass Index 43.12 06/16/2018 1251 EST documented in this encounter Functional Status [...] 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 female. Chief Complaint Patient presents with ??? Vaginal Bleeding HPI Roseann Wilcox is a 72 y.o. woman who on 07/15/2016 underwent a da Freddie- assisted total laparoscopichysterectomy, [...] stage IA, grade 1 endometrial adenocarcinoma,there was no evidence of lymphovascular space involvement. I last saw her for severe surveillance visit on October 28, 2017, and that point she was scheduled to return for annual surveillance visits. Roseann returns for problem visit today, as she called our office yesterday reporting having had recent vaginal bleeding. Roseann had initially been seen by her primary care provider with a complaint of left lower quadrant pain as well as vaginal bleeding. She states that this pain started just before [place] when she had done some straining and with this also experienced some vaginal bleeding. She had a CAT scan of the abdomen and pelvis at [facility] on May 14, 2018which showed no acute abnormalities. Of note, the patient did have also have a CAT scan back in July 2016 following her surgery and at that point a 3 cm fluid collection, possible hematoma had been seen. There is no mention of that on her recent CAT scan. She continues to report ongoing light vaginal bleeding that she will see when she wipes after urination. She also continues to have this intermittent left lower quadrant pain. Patient Active Problem List Diagnosis ??? Endometrial cancer ([facility]) Past Medical History: Diagnosis Date ??? High cholesterol ??? HTN (hypertension) ??? Obesity ??? Sleep apnea No past surgical history on file. No family history on file. Social Social History Tobacco Use ??? Smoking status: Never Smoker ??? Smokeless tobacco: Never Used Substance [...] - See Admin Instructions Nifedipine 0.2% ointment 15 g. Please compoundfor patient. Apply twice daily and after bowel movements. (Patient not taking: Reported on 06/16/2018) 1 Each 1 ??? mupirocin (BACTROBAN) 2 % ointment Apply [...] See Comments Dust, Mold Review of Systems - See HPI Objective: BP 122/64 (BP Cuff Sizes: Adult, long) Ht 152.4 cm (60) Wt 100.2 kg (220 lb 12.8 oz) BMI 43.12 kg/m?? Physical Exam Constitutional: She is oriented to person, place, and time. She appears well- developed and well-nourished. No distress. HENT: Head: Normocephalic and atraumatic. Cardiovascular: Normal rate and regular rhythm. Exam reveals no gallop and no friction rub. No murmur heard. Pulmonary/Chest: Effort normal. No respiratory distress. She has no wheezes. She has no rales. Abdominal: Soft. She exhibits no distension and no mass. There is tenderness (LLQ with deep palpation). There is no rebound and no guarding. Genitourinary: Vagina normal. There is no rash, tenderness, lesion or injury on the right labia. There is no rash, tenderness, lesion or injury on the left labia. There is a large friable exophytic mass at her vaginal cuff. I requested assistance of who was available in clinic and examined this mass along with me to confirm that we are not concerned about the possibility of vaginal cuff dehiscence. Following this, biopsies were obtained of this mass using a Tischler, and a large piece of the mass was removed as well. This was all placed in formalinand sent to pathology. There was a moderate amount of bleeding that was well controlled with Monsel's. Musculoskeletal: Normal range of motion. She exhibits no edema or tenderness. Neurological: She is alert and oriented to person, place, and time. Skin: Skin is dry. No rash noted. No erythema. No pallor. Assessment: History of stage I a grade 1 endometrial cancer, with large vaginal cuff mass worrisome for recurrent disease. Plan: Roseann was seen today for vaginal bleeding. Diagnoses and all orders for this visit: History of endometrial cancer - SURGICAL PATHOLOGY- ORDER ONLY Vaginal mass - SURGICAL PATHOLOGY- ORDER ONLY I reviewed with Roseann that the cause of her recent bleeding is a large mass at the top of her vagina. As above, we did perform biopsies and will follow up on these. Will schedule her to follow-up withDr. Banegas assuming that these return positive for recurrent endometrial cancer. Post procedure precautions were discussed, advising Roseann to return should she have any heavy vaginal bleeding, or any increasing pain, fevers, chills, foul-smelling vaginal discharge, or any other concerns. SUJEY Worrell documented in this encounter Plan of Treatment Upcoming Encounters Date Type Specialty Care Team Description 03/28/2022 Office Visit Gynecologic Oncology Kush Liz PA-C [address] [facility] venue [facility], [facility], [facility] [address] [place], [place] [address] (Wo rk) Scheduled Orders Name Type Priority Associated Diagnoses Order S chedule SURGICAL PATHOLOGY- Pathology Routine History of endometria l Ordered: 06/16/2018 ORDER ONLY cancer Vaginal mass documented as of this encounter Procedures Procedure Name Priority Date/Time Associated Diagnosis Comme nts SURGICAL PATHOLOGY Routine 06/16/2018 13:46 Resul ts for this EST procedure are i n the results section. documented in this encounter Results SURGICAL PATHOLOGY (06/16/2018 13:46 EST) Pathology SURGICAL PATHOLOGY REPORT [facility] MEDICAL Report: CENTER Reports generated via electronic interface contain ingrid ginal data; LABORATORY however they are lacking the format of the original re port. SERVICES Caution should be taken when reading/interpreting unfo rmatted reports. Name: ? ROSEANN WILCOX Rizwan ? Accession #: ? [id number] ? : ? 1945 (Age: 8 2) ??F ?Collect Date: ? 06/16/2018 ? Location: ? OBGYN ? Receive Date: ? 019 ? Provider: VESTA RM Copy to: JAMES JIMENEZ MS ? Final Pathologic Diagnosis: Vagina mass, biopsy: - ??Recurrent endometrial adenocarcinoma, endometrioid type, FIGO grade 1 Comment: ? Bias Machine Operator slides of this case were reviewe d at intradepartmental consultation conference. ? Microscopic Description: Histologic sections show fragments of an endometrial a denocarcinoma, endometrioid type, grade 1 morphologically similar to the tumor seen in the patient's previous case [id number]. ? Document reviewed and electronically signed by: ? ADAIR MURRELL MD ? Report ??Date: 06/22/2018 12:52 By the signature above, the attending physician certif ies that he/she has personally conducted a gross and/or microscopic examin ation of the described specimens and rendered or confirmed the above diagnosi s. Clinical History: History of stage 1A grade 1 endometrial cancer, S/P TLH-BSO in 06/2016, vaginal bleeding, large mass at vaginal cuff; cl inical diagnosis code: ??Z85.42, N89.9 ? Gross Description: ? Received in formalin labelled with proper patient identification (initials P, M) and not otherwise specified is a t an-brown irregular tissue with loosely attached clotted blood (2.2 x 1.5 x 1.0 cm). The rebekah n cannot be determined therefore the tissue is not inked. The tissue is serially sectioned and entirely submitted in 1-4. Also received is an aggregate of mccormick -brown soft tissue fragments admixed with a small amount of hemorrhagic material (1.2 x 0.7 x 0.2 cm) which is submitted intact in 5. SUJEY Frey (ASC) 06/17/2018 3:11 PM ? MISMATCH REPAIR PROTEIN ASSAY (MMR) ? Date Ordered: ? 06/30/2018 ? Status: ?? Signed Out ?Date Complete: ? 06/30/2018 ? By: ??NO RA Stephanie CHANDLER MD ? Date Reported: ? 06/30/2018 ? Interpretation Results of immunohistochemical staining: ??Retai selma expression of MLH1, PMS2, MSH2 and MSH6 These results are indicative of normal D NA mismatch repair function within the tumor. ??This patient l indra does not have Christine syndrome. ??However, it is important to note that 3-10% of Christine syndrome patient s may reveal retained expression of mismatch repair proteins d ue to mutation in other genes. ??Hence these findings should be interpreted in the context of family and clinical history. ??If results do not match clinicopathologic findings, molecular testing (specifically microsatellite instability by PCR) can be ordered upon obtaining preauthorization or an advanced beneficiary notice. ?? ANTIBODY(CLONE)(BLOCK):RESULT MLH1 (M1, Dorothy) (#1): Retained expression in tumor PMS2 (A16-4, Dorothy) (#1): Retained expression in ana or MSH2 ([id number], Dorothy) (#1): Retained expression in tumor MSH6 (SP93, Dorothy) (#1): Retained expression in tumo r Internal controls: Adequate NOTE: ??One or more of the reagents used in immunohistochemical testing in this case may not have been cleared or approved by the U.S. Food and Drug Administration (FDA). ??The FDA has determined that such clearance or approval is not necessary. ??These tests are used for clinical purposes. ??They should not be regarded as investigational or for research. ??These r eagents' performance characteristics have been de termined by [facility] and/or by the referring labo lani. ??The positive and negative controls worked appropriately. This laboratory is certified under the Clinical Laboratory Improvement Amendments of 19 88 (CLIA-88) as qualified to perform high complexity clinical laboratory testing. ?? Dr. Chandler 06/30/2018 11:49 AM Description Tissue submitted: ??Formalin fixed paraffin embedded t issue block labelled [id number], block #1 Tumor type: ??Endometrial adenocarcinoma Document reviewed and electronically signed by: ? JEFRY CHANDLER MD ? Report date: 06/30/2018 By the signature above, the attending physician certif ies that he/she has personally conducted a gross and/or microscopic examin ation of the described specimens and rendered or confirmed the above diagnosi s. End of Report Specimen Performing Organization Address City/State/ZIP Code Phon e Number [facility] [address] [place] [address] SERVICES documented in this encounter Visit Diagnoses Diagnosis History of endometrial cancer - Primary Personal history of malignant neoplasm o f other parts of uterus Vaginal mass Other specified symptom associated with female genital organs documented in this encounter Care Teams In Home Aide Relationship Specialty Start Date End Date Eve Londono MD PCP - General 04/18/17 [address] [place] [address] documented as of this encounter
--- OUTSIDE RECORDS SUMMARY | 2022-01-25 01:50 | XMS_ITS | Encounter Summary ---
:1945 Author Organization [facility] Address [address] [place] [address] Care Team Providers Name Role Phone Paula Engel NP Primary Care Provider Unavailable Reason for Visit Reason Comments Post-OP Follow Up 07/15/16 Da Freddie-assisted to lorri laparoscopic hysterectomy, bilateral salpingo-oophorect prashant injection, injection of ICG dye, bilateral hypogastric sentin el lymph node biopsy and cystoscopy. Please refer to Dr Gross 's note with regards to transection of the Meckel's diverticulum. Encounter Details Date Type Department Care Team Description 10/17/2016 Office Visit [facility] Will Banegas MD Endometrial cancer Gynecologic Oncology [address] [place] [address] ([facility]) (Primary - [facility] [address] Dx) [address] [place] [address] [address], [place] [phone] (Wo rk) Social History Tobacco Use Types Packs/Day Years Used Date Never Smoker Smokeless Tobacco: Never Used Alcohol Use Standard Drinks/Week Comments No 0 (1 standard drink = 0.6 oz pure alcoho l) Sex Assigned at Date Recorded Female 09/25/2021 8:41 EDT documented as of this encounter Last Filed Vital Signs Vital Sign Reading Time Taken Comments Blood Pressure 140/78 10/17/2016 1051 EDT Pulse - - Temperature - - Respiratory Rate - - Oxygen Saturation - - Inhaled Oxygen Concentration - - Weight 96.6 kg (213 lb) 10/17/2016 1039 EDT Height 152.4 cm (5') 10/17/2016 1039 EDT Body Mass Index 41.6 10/17/2016 1039 EDT documented in this encounter Functional Status [...] encounter Progress Notes Will Banegas MD - 10/17/2016 1100 EDT Just a note to keep you up [...] of lymphovascular space involvement. Today, Roseann presents to the office for a postop check. It should be noted that her postop course was complicated by a possible pelvic collection/abscess and she has been treated with antibiotics. It should also be noted that during that time when she was treated on antibiotics, she had a normal white count. Today Roseann presents to the office for a second postop check. Of note, she is doing well. She has no shortness of breath or chest pain. She has no abnormal vaginal bleeding or discharge. She has no urinary or GI complaints. Current Outpatient Prescriptions Medication Sig Dispense Refill [...] and ROS is otherwise negative. Objective: BP 140/78 Ht 152.4 cm (60) Wt 96.6 kg (213 lb) BMI 41.6 kg/m2 Physical Exam Loan Funder for the physical exam was ASHLEE Schuler Pelvic exam demonstrates that the vaginal cuff is intact. There are no pelvic collections. Assessment & Plan: Today, I explained to Roseann that overall I am very pleased with how she is doing. She has recoveredwell from surgery. I explained to Roseann that she needs to have her followup surveillance every 6 months for the next year and then annually thereafter. Roseann states that she would like to have her surveillance done here at [facility] and I explained to her that we will see her in our surveillance clinic. As always, I thank you very much for allowing me to participate in the care of your patient. I will keep you informed of her progress. Sincerely and Respectfully, Will Banegas MD Director of the Gynecologic Oncology Program [facility] documented in this encounter Plan of Treatment Upcoming Encounters Date Type Specialty Care Team Description 03/28/2022 Office Visit Gynecologic Oncology Kush Liz PA-C [address] [place] [address], [address] [place] [phone] (Wo rk) documented as of this encounter Visit Diagnoses Diagnosis Endometrial cancer ([facility]) (HCC) - [facility] Malignant neoplasm of corpus uteri, exce pt isthmus documented in this encounter Discontinued Medications Medication Sig Discontinue Reason Start Date End Date oxyCODONE (ROXICODONE) 5 Take 1-2 Tabs by Therapy completed 017 10/17/2016 mg immediate release mouth every 4 hours tablet as needed for Pain. Daily Max: 60 mg simvastatin (ZOCOR) 10 mg Take 20 mg by mouth Duplicate Therapy 10/17/2016 tablet every evening. documented as of this encounter Care Teams Senior Account Director Relationship Specialty Start Date End Date Paula Engel NP PCP - General 06/24/16 04/17/17 documented as of this encounter
--- OUTSIDE RECORDS SUMMARY | 2022-01-25 01:50 | XMS_ITS | Encounter Summary ---
:1945 Author Organization [facility] Address [address] [place] [address] Care Team Providers Name Role Phone Unknown, Provider Primary Care Provider Encounter Details Date Type Department Care Team Description 03/31/2007 Results Only [facility] - Veronika Rojas MD [address] [place], [place] [address] [place] [id number] [phone] Social History Tobacco Use Types Packs/Day Years Used Date Never Assessed Sex Assigned at Date Recorded Female 09/25/2021 8:41 EDT documented as of this encounter Plan of Treatment Upcoming Encounters Date Type Specialty Care Team Description 03/28/2022 Office Visit Gynecologic Oncology Kush Liz PA-C [address] [facility], [facility] [address] [place], [place] [phone] (Wo rk) documented as of this encounter Procedures Procedure Name Priority Date/Time Associated Diagnosis Comme nts CYTOPATHOLOGY Routine 03/31/2007 0:00 EST Results for this procedure are i n the results section . documented in this encounter Results CYTOPATHOLOGY (03/31/2007 0:00 EST) Pathology Report: CYTOPATHOLOGY REPORT [facility] Reports generated via electronic interface contain ingrid ginal data; however they are lacking the format of the original re port. Caution should be taken when reading/interpreting unfo rmatted reports. Name: ? MADDIE WILCOX ? Accession #: ? [id number] : ? 1945 (Age: 61) ??F ?Collect Date: ? 03/21 Location: ? [facility] ? Receive Date : ? 04/02/2007 Provider: ?VERONIKA FENTON MD Copy to: ? Specimen/Source: ? ThinPrep Pap Test, Cervix/Endocervix, processed on [employer] ThinPrep Imaging System, with manual evaluation Last Menstrual Period: ? Menstrual/ Status: ? Post Menopausal Other: ? HPVA - HPV testing requested if ASC-US on the current ThinPrep Pap test. ? SPECIMEN ADEQUACY ? Satisfactory for Evaluation - assessment of transformation zone component not appl icable ( e.g. atrophy, vaginal sample, hysterectomy) GENERAL CATEGORIZATION ? Negative for Intraepithelial Lesion or Malignan cy ? Document reviewed and electronically signed by: ? Veronika Ny, HERB(ASCP) ? Report Date: ??04/06/2007 11:23 End of Report Specimen Performing Organization Address City/State/ZIP Code Phon e Number [facility] [address] [place] [address] SERVICES [facility] [address] [place] [address] documented in this encounter Visit Diagnoses Not on filedocumented in this encounter Care Teams Direct Service Worker Relationship Specialty Start Date End Date Unknown, Provider, PCP - General 04/01/09 06/23/16 documented as of this encounter
--- OUTSIDE RECORDS SUMMARY | 2022-01-25 01:50 | XMS_ITS | Encounter Summary ---
:1945 Author Organization [facility] Address [address] [place] [address] Care Team Providers Name Role Phone Paula Engel NP Primary Care Provider Unavailable Encounter Details Date Type Department Care Team Description 07/04/2016 Phlebotomy Only [facility] Alfalfa Dehydrator Operator, Lida etrial cancer ([facility]); - [facility] Outpatient Preop testing; [address] [facility] PMB (postmenopausal bleeding ) [place] [address] Social History Tobacco Use Types Packs/Day Years [...] Visit Gynecologic Oncology Kush Liz PA-C [address] [place] [facility], [address] [place], [place] [phone] (Wo rk) documented as of this encounter Procedures Procedure Name Priority Date/Time Associated Comments Diagnosis PRE-OP TYPE AND SCREEN Routine 07/04/2016 15:03 Endometrial ca ncer Results for this EDT ([facility]) procedure are in Preop testing the results PMB (postmenopausal section. bleeding) PTT Routine 07/04/2016 15:03 Endometrial cancer Resul ts for this EDT ([facility]) procedure are in Preop testing the results PMB (postmenopausal section. bleeding) PROTIME Routine 07/04/2016 15:03 Endometrial cancer Resul ts for this EDT ([facility]) procedure are in Preop testing the results PMB (postmenopausal section. bleeding) COMPLETE BLOOD COUNT Routine 07/04/2016 15:03 Endometrial canc er Results for this EDT ([facility]) procedure are in Preop testing the results PMB (postmenopausal section. bleeding) COMPREHENSIVE Routine 07/04/2016 15:03 Endometrial cancer Resu lts for this METABOLIC PANEL (CMP) EDT ([facility]) procedure are in Preop testing the results PMB (postmenopausal section. bleeding) documented in this encounter Results (ABNORMAL) COMPREHENSIVE METABOLIC PANEL (CMP) (07/04/2016 15:03 EDT) Potassium 3.9 3.5 - 5.0 [facility] mEq/L [facility] Sodium 141 136 - 145 [facility] mEq/L [facility] Chloride 101 96 - 110 [facility] mEq/L [facility] CO2 30Comment: Note new 22 - 32 [facility] MED[facility] reference range mEq/L [facility] 02/06/16 SERVICES Total Alkaline 54 38 - 126 U/L [facility] Phosphatase [facility] Bilirubin, Total <0.5 <1.4 mg/dl [facility] SERVICES AST 30 15 - 46 U/L [facility] SERVICES ALT 53 (H) <53 U/L [facility] SERVICES Albumin 4.6 3.4 - 4.9 [facility] g/dl [facility] Total Protein 7.1 6.3 - 8.2 [facility] g/dl [facility] Creatinine 0.76 0.52 - 1.04 [facility] mg/dl [facility] GFR, Calculated 80 >60 [facility] Comment: ml/min/1.73m [facility] eGFR calculated using CKD-EPI equation for 2 SERVICES non Americans. Multiply eGFR by 1.16 for Americans. BUN 12 10 - 26 [facility] mg/dl [facility] Calcium 10.0 8.5 - 10.5 [facility] mg/dl [facility] Calculated Calcium 9.5 8.5 - 10.5 [facility] Comment: mg/dl [facility] Note new formula for calculation SERVICES in use 01/24/2016 Glucose, Serum 87 70 - 100 [facility] mg/dl [facility] Fasting? No [facility] SERVICES Specimen Blood specimen (specimen) - Blood Performing Organization Address City/State/ZIP Code Phon e Number [facility] [address] [place] [address] SERVICES PTT (07/04/2016 15:03 EDT) Pathologist Sig nature PTT 30 26 - 37 secs [facility] LABORATOR Y SERVICES Specimen Blood specimen (specimen) - Blood Performing Organization Address [facility]/ZIP [facility] Phon e Number [facility] [address] [place] [address] SERVICES PROTIME (07/04/2016 15:03 EDT) Pro Time 12.7 10.3 - 13.1 [facility] secs LABORATORY SERVICES I.N.R. 1.1 0.9 - 1.1 [facility] Comment: Ratio LABORATORY SERVICES Moderate Intensity Coumadin INR = 2.0-3.0 Adjustments in anticoagulant therapy dose should be based upon the INR and NOT the Pro Time. Specimen Blood specimen (specimen) - Blood Performing Organization Address [facility]/ZIP [facility] Phon e Number [facility] [address] [place] [address] SERVICES PRE-OP BLOOD BANK DRAW (07/04/2016 15:03 EDT) Pre-Op Blood Bank SPECIMEN RECEIVED [facility] Lab Draw ACCEPTABLE LABORATORY SERVICES Specimen Blood Performing Organization Address [facility]/ZIP [facility] Phon e Number [facility] [address] [place] [address] SERVICES (ABNORMAL) HEMAGRAM (07/04/2016 15:03 EDT) Pathologist Sig nature WBC 7.56 4.0 - 12.4 K/cmm [facility]ATORY SERVICES RBC 4.07 3.86 - 5.04 M/cmm [facility] SERVICES Hemoglobin 12.2 11.6 - 15.2 gm/dl [facility]ATORY SERVICES HCT 37.1 34.9 - 44.4 % [facility]ATORY SERVICES MCV 91 81 - 98 fl [facility]ATORY SERVICES MCH 30.0 26.7 - 33.3 pg [facility]ORATORY SERVICES MCHC 32.9 32.1 - 35.9 gm/dl [facility]ORY SERVICES RDW-CV 14.8 (H) 11.7 - 14.6 % [facility]ATORY SERVICES RDW-SD 49.8 37.6 - 50.3 fl [facility]ATORY SERVICES PLT 258 141 - 377 K/cmm [facility]ORY SERVICES MPV 9.9 9.5 - 12.7 fl [facility] SERVICES Specimen Blood specimen (specimen) - Blood Performing Organization Address City/State/ZIP Code Phon e Number [facility] [address] [place] [address] SERVICES documented in this encounter Visit Diagnoses Diagnosis Endometrial cancer (HCC-[facility]) (HCC) Malignant neoplasm of corpus uteri, exce pt isthmus Preop testing Preoperative examination, unspecified PMB (postmenopausal bleeding) Postmenopausal bleeding documented in this encounter Care Teams Leather Seasoner Relationship Specialty Start Date End Date Paula Engel NP PCP - General 06/24/16 04/17/17 documented as of this encounter
--- OUTSIDE RECORDS SUMMARY | 2022-01-25 01:50 | XMS_ITS | Encounter Summary ---
:1945 Author Organization [facility] Address [address] [place] [address] Care Team Providers Name Role Phone Paula Engel NP Primary Care Provider Unavailable Reason for Visit Reason Comments Post-OP Follow Up 1st post op visit Encounter Details Date Type Department Care Team Description 08/12/2016 Office Visit [facility] Will Banegas MD Endometrial cancer Gynecologic Oncology [address] [place] [address] ([facility]) (Primary - [facility] [address] Dx) [address] [place] [address] [address], [place] [phone] (Wo rk) Social History Tobacco Use Types Packs/Day Years Used Date Never Smoker Smokeless Tobacco: Never Used Alcohol Use Standard Drinks/Week Comments No 0 (1 standard drink = 0.6 oz pure alcoho l) Sex Assigned at Date Recorded Female 09/25/2021 8:41 EDT documented as of this encounter Last Filed Vital Signs Vital Sign Reading Time Taken Comments Blood Pressure 120/72 08/12/2016 1303 EDT Pulse - - Temperature - - Respiratory Rate - - Oxygen Saturation - - Inhaled Oxygen Concentration - - Weight 96.7 kg (213 lb 3.2 oz) 08/12/2016 1303 EDT Height 152.4 cm (5') 08/12/2016 1303 EDT Body Mass Index 41.64 08/12/2016 1303 EDT documented in this encounter Functional Status [...] encounter Progress Notes Will Banegas MD - 08/12/2016 1330 EDT Just a note to keep you [...] had a normal white count. Today Roseann feelswell. She has no fever or chills. She has no pain. She is tolerating solids and liquids without any difficulty. Final Pathologic Diagnosis: A. LYMPH NODES, HYPOGASTRIC [...] post ligation. - ??Ovaries: ?- ??Focal adhesions. Current Outpatient Prescriptions Medication Sig Dispense Refill [...] daily as needed. Reported on 07/15/2016 ??? oxyCODONE (ROXICODONE) 5 mg immediate release tablet Take 1-2 Tabs by mouth every 4 hours as needed for Pain. Daily Max: 60 mg (Patient not taking: Reported on 08/12/2016) 30 Tab 0 ??? Potassium Gluconate 595 mg (99 mg) tablet Take 1 Tab by mouth daily. ??? psyllium, 5.8 G, (METAMUCIL) packet Take 1 Packet by mouth daily. ??? selenium 100 mcg tablet Take 200 mcg by mouth daily. Reported on 08/12/2016 ??? Selenium 200 mcg tablet Take 200 mg by mouth daily. ??? simvastatin (ZOCOR) 10 mg tablet Take 20 mg by mouth every evening. ??? simvastatin (ZOCOR) 20 mg tablet Take [...] and ROS is otherwise negative. Objective: BP 120/72 Ht 152.4 cm (60) Wt 96.7 kg (213 lb 3.2 oz) BMI 41.64 kg/m2 Physical Exam Abdomen is soft, nontender, and nondistended. No rebound or guarding. Trocar sites are all clean, dry, and intact. Assessment & Plan: Today, I had a lengthy discussion with Roseann and her . I explained to them that I am very pleased with how she is recovering from surgery. 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 She is very pleased with these findings. I did explain to her that she would need tohave followup visit surveillance visits every 6 months for the next 2 years. With regards to her next postop visit, I had given Roseann the option either to be seen locally by her primary doctor and herprimary primer inserting machine adjuster or to come back here. She states that she will talk to her primary doctor aboutit. As always, I thank you very much for allowing me to participate in the care of your patients. I willkeep you informed of her progress. Sincerely and Respectfully, Will Banegas MD Director of the Gynecologic Oncology Program [facility] documented in this encounter Plan of Treatment Upcoming Encounters Date Type Specialty Care Team Description 03/28/2022 Office Visit Gynecologic Oncology Kush Liz PA-C [address] [facility], [facility] [address] [place], [place] [phone] (Wo rk) documented as of this encounter Visit Diagnoses Diagnosis Endometrial cancer (HCC-[facility]) (HCC) - [facility] Malignant neoplasm of corpus uteri, exce pt isthmus documented in this encounter Care Teams Director Of Music Relationship Specialty Start Date End Date Paula Engel NP PCP - General 06/24/16 04/17/17 documented as of this encounter
--- OUTSIDE RECORDS SUMMARY | 2022-01-25 01:50 | XMS_ITS | Encounter Summary ---
:1945 Author Organization [facility] Address [address] [place] [address] Care Team Providers Name Role Phone Eve Londono MD Primary Care Provider Reason for Visit Reason Comments Follow-up 6 week f/u Encounter Details Date Type Department Care Team Description 10/07/2017 Office Visit [facility] Lia Doran MD Anal fissure (Primary General Surgery - [address] [facility]) [facility] [address] [place] [address] [address]ilion, [place] [phone] (Wo rk) Social History Tobacco [...] fissure, unspecified-K60.2[IC [id number]] documented in this encounter Discharge Disposition Disposition Code Departure Means Destination Auto Discharge documented in this encounter Progress Notes Lia Doran MD - 10/07/2017 1045 EDT Subjective: At her last visit, she was diagnosed with a anal fissure causing anal pain. She stated that she was not concerned [...] says she got off her regimen of MiraLAXbecause she developed bronchitis and has been on [...] her rectum which she attributed to hemorrhoids. ? She has had hemorrhoids for 30 or [...] softening her stool. ??She denies fecal incontinence ? She also states that she has a small amount of gas and occasional malodorous drainage from her vaginal os. ??She states she has had this for 50 years since the of one of her children. ??She states that it is no worse following her recent surgery. ??She is never had a history of diverticulitis. ? Prior colonoscopy:??December 2015--[facility]??for personal history of polyps done by Dr. [...] oriented x 3, in no apparent distress Deferred due to improvement in symptoms. A/P: She will get back on her regimen of MiraLAX and continue her nifedipine cream. She will see me in about 4 weeks. I am going to hold off on doing an anoscopy today as she still does have some pain and I do not want to split the anoderm until she feels completely healed. I am encouraged that this will resolve with medical management given her improvement in symptoms. documented in this encounter Plan of Treatment Upcoming Encounters Date Type Specialty Care Team Description 03/28/2022 Office Visit Gynecologic Oncology Kush Liz PA-C [address] [facility], [facility], [address] [place], [place] [phone] (Wo rk) documented as of this encounter Visit Diagnoses Diagnosis Anal fissure - Primary documented in this encounter Care Teams Analog Design Engineer Relationship Specialty Start Date End Date Eve Londono MD PCP - General 04/18/17 [address] [place] [address] documented as of this encounter
[2022-01-25 13:06] LABS: ALT 26 U/L (14-59); AST 17 U/L (15-37); Albumin 4.2 g/dL (3.4-5.0); Alkaline Phosphatase 54 U/L (46-116); Anion Gap 3.7 mmol/L (3-11); BUN 14 mg/dL (7-18); Bilirubin, Total 0.3 mg/dL (0.2-1.0); CO2 30.3 mmol/L (21.0-32.0); CREATININE 0.8 mg/dL (0.55-1.02); Calcium 9.8 mg/dL (8.5-10.1); Chloride 100 mmol/L (98-107); Estimated GFR 76.79 (mL/min/1.73m2); Glucose 82 mg/dL (74-106); Sodium 134 mmol/L (136-145); TSH (W/Ref FT4) 2.62 uIU/mL (0.36-3.74)
[2022-01-25 13:42] LABS: Potassium 2.8 mmol/L (3.5-5.1)
== END 2022-01-25 01:46 | disposition home or self-care (01) ==
LOC: LBO 01:45
PROVIDERS: PCP Family Medicine; Visit Provider Family Medicine
DX: E03.9 Hypothyroidism, unspecified (principal); I10 Essential (primary) hypertension
CPT/HCPCS: 36415; 80053; 84443

== ENCOUNTER 2022-01-28 11:29 | Outpatient (CLI) | payer MEDICARE, BC, SELFPAY ==
[2022-01-28 12:20] LABS: BUN 16 mg/dL (7-18); CREATININE 0.8 mg/dL (0.55-1.02); Calcium 9.8 mg/dL (8.5-10.1); Chloride 102 mmol/L (98-107); Estimated GFR 76.79 (mL/min/1.73m2); Glucose 83 mg/dL (74-106); Potassium 3.2 mmol/L (3.5-5.1); Sodium 139 mmol/L (136-145)
== END 2022-01-28 11:30 | disposition home or self-care (01) ==
LOC: LBO 11:29
PROVIDERS: PCP Family Medicine; Visit Provider Family Medicine
DX: E87.6 Hypokalemia (principal)
CPT/HCPCS: 36415; 80048

== ENCOUNTER 2022-03-07 07:26 | Emergency (ER) | payer MEDICARE, BC, SELFPAY ==
--- NOTE | 2022-03-07 07:33 | ED.GENADUL_ITS ---
Discharge Plan Disposition Patient Disposition: Home Condition: Good Discharge Details Clinical Impression: Acute UTI Primary Care Provider: Eve Londono ED Provider: Xavier Azar Home Meds and New Rx's Prescriptions: New cephalexin 500 mg capsule 500 mg PO QID 7 Days Qty: 28 0RF phenazopyridine [Pyridium] 100 mg tablet 100 mg PO QPC Qty: 6 0RF estradiol [Estrace] 0.01 % (0.1 mg/gram) cream 1 appful vaginal DAILY Qty: 42.5 0RF Rx Instructions: for 14 days Continued potassium chloride 20 mEq tablet extended release 40 meq PO BID Qty: 360 4RF docusate sodium 250 mg capsule 500 mg PO DAILY cholecalciferol (vitamin D3) 25 mcg (1,000 unit) capsule 50 mcg PO DAILY bisacodyl 5 mg tablet 5 mg PO DAILY PRN fluocinonide 0.05 % cream 1 applic topical BID PRN hydrocortisone [Aquaphor Itch Relief] 1 % ointment 1 applic topical DAILY PRN mupirocin calcium 2 % cream 1 applic topical DAILY PRN atorvastatin 10 mg tablet 10 mg PO DAILY Qty: 90 4RF metoprolol succinate 50 mg tablet extended release 24 hr 50 mg PO DAILY Qty: 90 4RF amlodipine 10 mg tablet 10 mg PO DAILY Qty: 90 4RF fexofenadine [Preeti] 180 MG tablet 180 mg PO DAILY Qty: 90 Rx Instructions: 1 TAB DAILY acetaminophen [Tylenol Extra Strength] 500 MG tablet 1 tab PO DAILY PRN CPAP Each 0RF Rx Instructions: sleep apnea cyanocobalamin (vitamin B-12) [Vitamin B-12] 1,000 MCG tablet 1,000 mcg PO DAILY hydrocortisone valerate 45 GM cream 1 applic Topical DAILY PRN PRNQty: 15 Label Comments: pt states she uses about 2 times per week Rx Instructions: please dispense the cream instead of the previous ointment rx magnesium oxide 250 MG tablet 250 mg PO DAILY folic acid 400 mcg tablet 0.8 mg PO DAILY losartan 100 mg tablet 100 mg PO DAILY Qty: 90 4RF fluticasone propionate 50 mcg/actuation spray,suspension 2 spray NS DAILY Qty: 16 3RF hydrochlorothiazide 25 mg tablet 25 mg PO DAILY Qty: 90 3RF levothyroxine [Synthroid] 25 mcg tablet 25 mcg PO DAILY Qty: 90 1RF Rx Instructions: 1 TAB DAILY megestrol 40 mg tablet 40 mg PO QID Qty: 120 8RF selenium 200 mcg Tablet 200 mcg PO DAILY Discharge Instructions Instructions: Urinary Tract Infection in Women (ED) Additional Instructions: At this time you have evidence of urinary tract infection. Please take the antibiotic as directed. The full prescription has been sent to your pharmacy on file. Please apply the vaginal estrogen cream as directed. If you notice any worsening of your symptoms, or any new symptoms such as vomiting, diarrhea, fever, chills, shortness of breath, chest pain, numbness, weakness, or fainting , please return immediately to the emergency department for reevaluation. Please follow up with your primary care provider as soon as possible for reassessment and reevaluation. As always, it was a pleasure participating in your medical care today. Referrals: Eve Londono MD, [place] [Primary Care Provider] - Discharge Data Discharge Date/Time-TO BE ENTERED AT DEPARTURE: 03/07/22 08:39 Medical Decision Making 76-year-old female presents today for evaluation of urinary frequency and burning. It began this morning. She has both burning and frequency. She denies flank pain or fever. She denies any chest pain. She does not use any vaginal estrogen creams. She denies any other complaints at this time. No other modifying factors. Previous lab cultures were positive for Klebsiella and E. coli for her urinalyses in the past. These were both susceptible to Keflex. We will get a urinalysis, monitor closely and reassess. Patient would be a good candidate for a Keflex prescription. We will give Pyridium for home. We will also start the patient on the vaginal estrogen cream to prevent future UTIs potentially. Sign Out No HPI General Date/Time Provider Initiated Documentation: 03/07/22 07:29 . HPI Narrative: 76-year-old female presents today for evaluation of urinary frequency and burning. It began this morning. She has both burning and frequency. She denies flank pain or fever. She denies any chest pain. She does not use any vaginal estrogen creams. She denies any other complaints at this time. No other modifying factors. Related Data Home Medications Medication Instructions Recorded Confirmed acetaminophen 500 mg tablet 1 tab PO DAILY PRN 07/30/12 03/07/22 (Tylenol Extra Strength) fexofenadine 180 mg tablet 180 mg PO DAILY ##90 07/30/12 03/07/22 (Preeti) cyanocobalamin (vitamin B-12) 1,000 mcg PO DAILY 08/06/13 03/07/22 1,000 mcg tablet (Vitamin B-12) hydrocortisone valerate 0.2 % 1 applic topical DAILY PRN PRN #15 08/16/14 03/07/22 topical cream grams magnesium oxide 250 mg PO DAILY 08/18/15 03/07/22 selenium 200 mcg tablet 200 mcg PO DAILY 05/05/20 03/07/22 bisacodyl 5 mg tablet 5 mg PO DAILY PRN 11/27/20 03/07/22 cholecalciferol (vitamin D3) 25 50 mcg PO DAILY 11/27/20 03/07/22 mcg (1,000 unit) capsule docusate sodium 250 mg capsule 500 mg PO DAILY 11/27/20 03/07/22 fluocinonide 0.05 % topical cream 1 applic topical BID PRN 11/27/20 03/07/22 folic acid 400 mcg tablet 0.8 mg PO DAILY 11/27/20 03/07/22 hydrocortisone 1 % topical 1 applic topical DAILY PRN 11/27/20 03/07/22 ointment (Aquaphor Itch Relief) mupirocin calcium 2 % topical cream 1 applic topical DAILY PRN 11/27/20 03/07/22 losartan 100 mg tablet 100 mg PO DAILY #90 tabs 01/29/21 03/07/22 fluticasone propionate 50 2 spray NS DAILY #16 grams 02/09/21 03/07/22 mcg/actuation nasal spray,suspension atorvastatin 10 mg tablet 10 mg PO DAILY #90 tabs 04/02/21 03/07/22 metoprolol succinate 50 mg 50 mg PO DAILY #90 tabs 04/02/21 03/07/22 tablet,extended release 24 hr amlodipine 10 mg tablet 10 mg PO DAILY #90 tabs 06/25/21 03/07/22 hydrochlorothiazide 25 mg tablet 25 mg PO DAILY #90 tabs 12/17/21 03/07/22 levothyroxine 25 mcg tablet 25 mcg PO DAILY #90 tab-caps 01/21/22 03/07/22 (Synthroid) potassium chloride 20 mEq 40 meq PO BID #360 tabs 01/29/22 03/07/22 tablet,extended release megestrol 40 mg tablet 40 mg PO QID #120 tabs 02/04/22 03/07/22 cephalexin 500 mg capsule 500 mg PO QID 7 days #28 caps 03/07/22 estradiol 0.01% (0.1 mg/gram) 1 appful vaginal DAILY #42.5 grams 03/07/22 vaginal cream (Estrace) phenazopyridine 100 mg tablet 100 mg PO QPC 6 doses #6 tabs 03/07/22 (Pyridium) Previous Rx's Medication Instructions Recorded losartan 100 mg tablet 100 mg PO DAILY #90 tabs 01/29/21 fluticasone propionate 50 2 spray NS DAILY #16 grams 02/09/21 mcg/actuation nasal spray,suspension atorvastatin 10 mg tablet 10 mg PO DAILY #90 tabs 04/02/21 metoprolol succinate 50 mg 50 mg PO DAILY #90 tabs 04/02/21 tablet,extended release 24 hr amlodipine 10 mg tablet 10 mg PO DAILY #90 tabs 06/25/21 hydrochlorothiazide 25 mg tablet 25 mg PO DAILY #90 tabs 12/17/21 levothyroxine 25 mcg tablet 25 mcg PO DAILY #90 tab-caps 01/21/22 (Synthroid) potassium chloride 20 mEq 40 meq PO BID #360 tabs 01/29/22 tablet,extended release megestrol 40 mg tablet 40 mg PO QID #120 tabs 02/04/22 cephalexin 500 mg capsule 500 mg PO QID 7 days #28 caps 03/07/22 estradiol 0.01% (0.1 mg/gram) 1 appful vaginal DAILY #42.5 grams 03/07/22 vaginal cream (Estrace) phenazopyridine 100 mg tablet 100 mg PO QPC 6 doses #6 tabs 03/07/22 (Pyridium) Allergies Allergy/AdvReac Type Severity Reaction Status Date / Time aspirin Allergy Severe HIVES Verified 03/07/22 07:42 NSAIDS (Non-Steroidal Allergy Severe HIVES Verified 03/07/22 07:42 Anti-Inflamma latex Allergy Intermediate redness Verified 03/07/22 07:42 enalapril AdvReac Severe SEVERE LEG Verified 03/07/22 07:42 PAIN cetirizine [From [facility]] AdvReac Knee pain Verified 03/07/22 07:42 lisinopril AdvReac cough Verified 03/07/22 07:42 General RAYRAY: 3 Review of Systems All systems reviewed & are unremarkable except as noted in HPI and below PFSH All Active Problems (Updated 03/07/22 @ 07:35 by Xavier Azar DO) Acute UTI (Acute) Back pain (Acute) Hypokalemia (Acute) Hypertension (Chronic) Anxiety (Chronic) Left knee pain (Acute) SOB (shortness of breath) (Acute) Vitamin D deficiency (Acute) Hearing loss (Acute) Vaginal mass (Acute ~06/19/18) recurrence of endometrial cancer Colon polyp (Chronic 07/12/02) adenomas polyps Endometrial cancer, grade I (Chronic 07/09/16) hysterectomy planned fro 07/15 at [facility] 07/16/16 S/P HYSTERECTOMY Hyperlipidemia (Chronic 07/31/12) Hypothyroidism (Chronic 07/31/12) Obesity (Chronic 08/12/14) Obstructive sleep apnea syndrome (Chronic 07/30/11) uses CPAP Psoriasis (Chronic) Vitamin B 12 deficiency (Chronic 08/03/14) Medical History Abdominal abscess (07/29/16) Abnormal mammogram of right breast 09/04/15 cat3, 6month f/u scheduled at [facility] [place] Acute meniscal injury of right knee (03/13/17) Acute UTI Cough Elevated blood sugar level 08/19/16 Hyperglycemia (08/19/16) Migraine Migraine Phlegm in throat Stress UTI (urinary tract infection) Surgical History Appendectomy (~1982) Bilateral salpingectomy with oophorectomy (07/16/16) [facility] cystectomy (~1987) uterine History of bilateral ligation of fallopian tubes History of bilateral tubal ligation 04/21/82 Hysterectomy, Laproscopic (07/16/16) [facility] Ligation of fallopian tube (~1982) S/P appendectomy 04/21/82 Status post appendectomy Uterine fibroids removed (~1987) Family History Mother , 76 Essential hypertension Heart disease Hyperlipidemia Myocardial infarction Father , 96 Essential hypertension Heart disease Hyperlipidemia Stroke Sister Essential hypertension Heart disease Stroke Brother , 59 Essential hypertension Heart disease Hyperlipidemia Brain cancer Brother Diabetes Essential hypertension Hyperlipidemia Brother Essential hypertension Brother Essential hypertension Hyperlipidemia Maternal Grandfather , 93 Heart disease Paternal Grandfather , 81 Essential hypertension Heart disease Maternal Grandmother , 54 Rheumatoid arthritis Paternal Grandmother , 80 Heart disease Social History (Updated 02/01/22 @ 09:45 by Raysa Villarreal) Smoking/Tobacco Use Status: Former Tobacco Use Quit Date: 04/21/78 Tobacco: How many years used: 15 Second Hand Exposure: Yes Smoking risk assessment performed?: Yes Alcohol Intake: current Alcohol Intake frequency: holidays/special occasions only Drug use: Never Substance use type: does not use Caregiver/Support person: No Household members: children Communication Needs: None Do you need help understanding health information?: Never Pets and animals: No Sexually active: No Current gender identity: female What is your relationship status?: How often do you talk on the phone with friends or family?: decline to answer How often do you get together with friends or relatives?: decline to answer How often do you attend religion or evangelical services?: decline to answer Do you belong to any clubs or organized social groups?: decline to answer Panel score (0-1 are the most socially isolated patients): 0 What type of physical activity do you participate in: weight lifting Seatbelt use: always Drive intox or ride w/intox crew truck driver: No Do you feel safe at home: Yes Do you feel safe in your relationship?: Yes Exam Narrative Exam Narrative: 1.Const: Well-nourished, Well-developed, appearing stated age 2.Eyes: PERRL, no conjunctival injection, and symmetrical lids. 3.ENT: Atraumatic external nose and ears. Moist MM. Neck: Symmetric, trachea midline, No thyromegaly. 4.CVS: +S1/S2, No murmurs or gallops. Peripheral pulses 2+ and equal in all extremities. Brisk capillary refill in all extremities. 5.RESP: Unlabored respiratory effort. Clear to auscultation bilaterally. No wheezes rales or rhonchi 6.GI: Soft, Nontender/Nondistended, No hepatosplenomegaly. No guarding or rebound. No flank or CVA tenderness. 7.MSK: Normocephalic/Atraumatic, Extremities w/o deformity or ttp No cyanosis or clubbing, Normal movement of all extremities 8.Skin: Warm, Dry. No rashes or lesions. 9.Neuro: boiler attendant II-XII grossly intact. Sensation grossly intact, no focal neurologic deficits. 10.Psych: (AAO) x3. Appropriate mood and affect
[2022-03-07 07:36] VITALS: BP 159/82; PULSE 120; RESP 20; TEMP 37.5; O2SAT 98
[2022-03-07 07:53] LABS: Bilirubin Negative (Negative); Blood Moderate (Negative); Clarity Clear (Clear); Glucose Negative (Negative); Ketones Negative (Negative); Leukocyte Esterase Moderate (Negative); Nitrite Negative (Negative); Urobilinogen 0.2 EU/dL (Up TO 0.2)
[2022-03-07 08:08] LABS: WBC >50 HPF (0-5)
[2022-03-07 08:09] LABS: Bacteria Moderate HPF (Negative); C & S Indicated? Yes; Casts Negative LPF (Negative); Crystals Negative HPF (Negative); Epithelial Cells Few HPF (Negative); Mucus Negative (Negative); Other Cells Few Renal (Negative)
[2022-03-07 08:15] LABS: HCT 39.4 % (36.0-46.0); HGB 12.7 g/dL (11.2-15.7); MCH 29.7 pg (27.0-33.0); MCHC 32.2 % (32.0-36.0); MCV 92 fL (80-95); MPV 9.2 fL (8.0-11.0); Platelet Count 331 10^3/uL (130-400); RBC 4.27 10^6/uL (3.93-5.22); RDW 14.9 % (11.7-14.6); RDW-SD 50.7 fL; WBC 7.12 10^3/uL (4.4-10.8)
[2022-03-07 08:59] LABS: Anion Gap 12.1 mmol/L (3-11); BUN 15 mg/dL (7-18); CO2 23.9 mmol/L (21.0-32.0); CREATININE 0.7 mg/dL (0.55-1.02); Calcium 9.9 mg/dL (8.5-10.1); Chloride 103 mmol/L (98-107); Estimated GFR 90.14 (mL/min/1.73m2); Glucose 107 mg/dL (74-106); Potassium 3.9 mmol/L (3.5-5.1); Sodium 139 mmol/L (136-145)
== END 2022-03-07 08:39 | disposition home or self-care (01) ==
PROVIDERS: Emergency Provider Student in an Organized Health Care Education/Training Program; PCP Family Medicine
DX: N39.0 Urinary tract infection, site not specified; B96.20 Unspecified Escherichia coli [E. coli] as the cause of diseases classified elsewhere
CPT/HCPCS: 80048; 85027; 87077; 99283; 81003; 81015; 87086; 87186; 99284

== ENCOUNTER 2022-08-14 03:00 | Outpatient (CLI) | payer MEDICARE, BC, SELFPAY ==
[2022-08-14 12:25] LABS: Anion Gap 8.8 mmol/L (3-11); BUN 9 mg/dL (7-18); CO2 26.2 mmol/L (21.0-32.0); CREATININE 0.9 mg/dL (0.55-1.02); Calcium 9.6 mg/dL (8.5-10.1); Chloride 100 mmol/L (98-107); Estimated GFR 66.26 (mL/min/1.73m2); Glucose 117 mg/dL (74-106); Potassium 3.3 mmol/L (3.5-5.1); Sodium 135 mmol/L (136-145)
== END 2022-08-14 03:01 | disposition home or self-care (01) ==
LOC: LBO 03:00
PROVIDERS: PCP Family Medicine; Visit Provider Family Medicine
DX: E87.6 Hypokalemia (principal); I10 Essential (primary) hypertension; E03.9 Hypothyroidism, unspecified
CPT/HCPCS: 36415; 80048

== ENCOUNTER 2022-09-05 11:37 | Outpatient (CLI) | payer MEDICARE, BC, SELFPAY ==
--- NOTE | 2022-09-05 11:30 | RT.EKG_ITS ---
APPROVED REPORT Exam: Resting ECG Reason for Exam: c/o chest pain Patient Location: O HR:110 bpm ECG Measurements Heart Rate 110 AXIS AK 185 P 26 QRSd 87 QRS -42 QT 323 T 117 QTc 438 Conclusion Sinus tachycardia...rate> 99 Probable left atrial enlargement...P >50mS, <-0.10mV V1 Left anterior fascicular block...axis(240,-40), init forces inf Abnormal R-wave progression, early transition...QRS area>0 in V2 LVH with secondary repolarization abnormality...multi-LVH criteria, abnrm ST-T
== END 2022-09-05 11:38 | disposition home or self-care (01) ==
LOC: DI.CM 11:38
PROVIDERS: PCP Family Medicine; Visit Provider Family Medicine
DX: R07.9 Chest pain, unspecified (principal)
CPT/HCPCS: 93010

== ENCOUNTER 2022-09-06 14:44 | Outpatient (CLI) | payer MEDICARE, BC, SELFPAY ==
[2022-09-06 15:18] LABS: HCT 38.3 % (36.0-46.0); HGB 12.2 g/dL (11.2-15.7); MCH 29.8 pg (27.0-33.0); MCHC 31.9 % (32.0-36.0); MCV 94 fL (80-95); MPV 9.2 fL (8.0-11.0); Platelet Count 340 10^3/uL (130-400); RBC 4.09 10^6/uL (3.93-5.22); RDW 15.9 % (11.7-14.6); RDW-SD 54.8 fL
[2022-09-06 16:18] LABS: ALT 32 U/L (14-59); AST 19 U/L (15-37); Alkaline Phosphatase 55 U/L (46-116); Anion Gap 14.2 mmol/L (3-11); BUN 13 mg/dL (7-18); Bilirubin, Total 0.3 mg/dL (0.2-1.0); CO2 22.8 mmol/L (21.0-32.0); CREATININE 0.8 mg/dL (0.55-1.02); Calcium 9.7 mg/dL (8.5-10.1); Chloride 103 mmol/L (98-107); Estimated GFR 76.31 (mL/min/1.73m2); Glucose 178 mg/dL (74-106); Potassium 3.5 mmol/L (3.5-5.1); Sodium 140 mmol/L (136-145); TSH (W/Ref FT4) 1.65 uIU/mL (0.36-3.74); Total Protein 7.7 g/dL (6.4-8.2)
== END 2022-09-06 14:45 | disposition home or self-care (01) ==
LOC: LBO 14:45
PROVIDERS: PCP Family Medicine; Visit Provider Family Medicine
DX: E87.6 Hypokalemia (principal); G47.33 Obstructive sleep apnea (adult) (pediatric); I10 Essential (primary) hypertension; R53.83 Other fatigue; E03.9 Hypothyroidism, unspecified
CPT/HCPCS: 36415; 80053; 85027; 84443

== ENCOUNTER 2022-09-24 02:02 | Outpatient (CLI) | payer MEDICARE, BC, SELFPAY ==
--- NOTE | 2022-09-24 06:45 | DI.US_ITS ---
Exam(s) US ABDOMEN EXAM: US ABDOMEN CLINICAL HISTORY: burping, abd discomfort,r10.9 TECHNIQUE: Ultrasound abdomen performed using standard protocol. COMPARISON: CT CT ABDOMEN PELVIS W from 05/14/2018 FINDINGS: Examination limited by patient body habitus. ABDOMINAL AORTA AND IVC: Visualized portions normal caliber. PANCREAS: Normal where visualized. LIVER: There is increased echogenicity of the liver. The liver measures 17 cm long. Hepatopedal peggy w in the Portal Vein. GALLBLADDER:No evidence of cholelithiasis. No evidence of wall thickening. No pericholecystic fluid i dentified. BILIARY SYSTEM: Common bile duct measures 9 mm. This is unchanged compared to the CT scan of the abd omen and pelvis from 05/14/2018. No intrahepatic biliary ductal dilation. OLVERA'S SIGN: Negative. KIDNEYS: Kidneys are symmetric in size. No evidence of renal calculi. No evidence of hydronephrosis. No renal mass or cyst identified. SPLEEN: Not visualized on this examination. ASCITES: None seen. IMPRESSION: 1. Examination limited by patient body habitus. 2. Increased echogenicity of the liver suggesting fatty infiltration. 3. No evidence of cholelithiasis or gallbladder wall thickening. Stable 9 mm common bile duct. DATA REPOSITORY:
== END 2022-09-24 02:22 ==
LOC: DI 02:02
PROVIDERS: PCP Family Medicine; Visit Provider Family Medicine
DX: R10.9 Unspecified abdominal pain (principal); R93.2 Abnormal findings on diagnostic imaging of liver and biliary tract
CPT/HCPCS: 76700

== ENCOUNTER 2022-11-01 15:04 | Outpatient (REF) | payer MEDICARE, BC, SELFPAY | END 2022-11-01 15:05 | disposition home or self-care (01) | LOC: LBN 15:04 | PROVIDERS: PCP Family Medicine; Visit Provider Physician Assistant | DX: N39.0 Urinary tract infection, site not specified (principal) | CPT/HCPCS: 87077; 87086; 87186 ==

== ENCOUNTER 2022-11-28 10:00 | Outpatient (REF) | payer MEDICARE, BC, SELFPAY | END 2022-11-28 10:01 | disposition home or self-care (01) | LOC: LBN 10:00 | PROVIDERS: PCP Family Medicine; Visit Provider Nurse Practitioner Family | DX: N39.0 Urinary tract infection, site not specified (principal); R82.998 Other abnormal findings in urine | CPT/HCPCS: 87086 ==

== ENCOUNTER → 2022-12-17 01:46 | Outpatient (CLI) | payer MEDICARE, BC, SELFPAY ==
--- NOTE | 2022-12-17 08:45 | DI.US_ITS ---
APPROVED REPORT EXAM: Comprehensive 2D, Doppler, and color-flow Echocardiogram Patient Location: Out-Patient Cribbing Setter: Isiah Hayes RDCS (AE) Indications: SOB, Chest pain Other Information Study Quality: Fair. Technically limited study due to body habitus, inability to position patient. Conclusion Technically difficult but adequate study Left ventricle appears normal overall in size, wall thickness and systolic function. EF is 55%. Wal l motion is normal Normal right ventricular size and systolic function Both atria are normal in size Aortic valve is not well visualized but there is no hemodynamic significant aortic stenosis or regurg itation Mitral annular calcification Normal estimated right ventricular systolic pressure 16 mmHg Wall motion Left Ventricle The left ventricle is grossly normal size. Technically difficult imaging due to body habitus. Left ve ntricular systolic function is normal There is normal LV segmental wall motion. There is no ventricul ar septal defect visualized. LVEF is 55%. Right Ventricle The right ventricle is normal size. The right ventricular systolic function is normal. The RVSP is 15 .6 mmHg. Atria The left atrium size is normal. The right atrium size is normal. The interatrial septum is intact wit h no evidence for an atrial septal defect. Aortic Valve The aortic valve is not well visualized. Number of aortic valve leaflets could not be assessed. No he modynamically significant valvular aortic stenosis. No aortic regurgitation is present. Mitral Valve Moderate mitral annular calcification. No evidence of mitral valve stenosis. Trace mitral regurgitati on. Tricuspid Valve Tricuspid valve is not well visualized. There is no tricuspid valve stenosis. Mild tricuspid regurgit ation. Pulmonic Valve Pulmonic valve is not well visualized. There is no pulmonic valvular stenosis. Mild pulmonic regurgit ation. Great Vessels Aortic root is normal in size. The ascending aorta is normal Aortic arch is normal in caliber. IVC is normal in size and collapses >50% with inspiration. Pericardium There is no pericardial effusion. 2D Dimensions Ao Root d 2.29 cm F: 2.7 - 3.3 Ao Asc Diam d 3.34 cm F: 2.3 - 3.1 M-Mode TAPSE 2.49 cm (M/F) >1.7 Auto EF LV EDV A4C 98.0 mL LV EDV A2C 91.4 mL LV EDV BP LV ESV A4C 48.4 mL LV ESV A2C 43.5 mL LV ESV BP LVEF(%) A4C 50.6 % LVEF(%) A2C 52.4 % LVEF(%) BP LV SV A4C 49.6 ml LV SV A2C 47.9 ml LV SV BP LV CO A4C 4.1 L/min LV CO A2C 3.9 L/min LV CO BP HR A4C 82.76 BPM HR A2C 80.90 BPM LV EDV Index (BP) LA Volume LA Length A4C 5.1 cm LA Length A2C LA Area A4C s 13.01 cm2 LA Area A2C s LA Vol A4C A-L 27.92 mL LA Vol A2C A-L LA Vol Biplane A-L LA Vol A4C MOD 26.8 mL LA Vol A2C MOD LA Vol BP MOD RA Volume RA Area A4C 8.7 cm2 RA ESV A4C (A-L) 17.5mL RA Vol/BSA A4C A-L RA Length A4C 3.7 cm RA ESV A4C (MOD) 17.0mL LV Diastology MV E' medial 0.088 (>0.07 m/s) MV E Vmax 1.14 (0.4-1.3 m/s) MV E/E' MED 12.90 (<14) MV A Vmax 1.35 (0.4-1.3 m/s) MV E' lateral 0.082 (>0.1 m/s) E/A Ratio 0.8 MV E/E' LAT 13.88 (<14) MV E' Average 0.085 m/s MV E/E'(average) 13.38 Aortic Valve AoV Vmax 2.04 m/s LVOT Vmax 1.46 m/s AoV Peak Grad 17.1 mmHg LVOT Peak Grad 8.5 mmHg AoV Area (Vmax) 1.73 cm2 LVOT VTI 0.277 m AoV VTI 0.378 m LVOT Mean Grad 5.0 mmHg AoV Mean Hi. 1.46 m/s LVOT SV 67.04 mL AoV Mean Grad 9.6 mmHg LVOT Diam s 1.75 cm AoV Area (VTI) 1.77 cm2 Velocity Ratio 0.72 Mitral Valve MV DT 323 (160-240 msec) Pulmonary Valve PV Vmax 1.11 (0.5-1.5 m/s) RVOT Vmax 0.86 m/s PV Peak Grad 4.9 mmHg RVOT Peak Gr. 3.0 mmHg PV Mean Hi 0.77 m/s RVOT VTI 0.174 m PV Mean Grad 2.7 mmHg RVOT Mean Gr. 1.8 mmHg Tricuspid Valve RA Pressure 3.00 mmHg TR Vmax 1.77 m/s TR Peak Grad 12.5 mmHg RVSP (TR) 15.6 mmHg
== END ==
PROVIDERS: PCP Family Medicine; Visit Provider Family Medicine
DX: R06.02 Shortness of breath (principal); R07.9 Chest pain, unspecified
CPT/HCPCS: 93306

== ENCOUNTER 2023-02-14 16:47 | Outpatient (REF) | payer MEDICARE, BC, SELFPAY ==
[2023-02-14 21:33] LABS: Bilirubin Negative (Negative); Blood Trace-intact (Negative); Clarity Clear (Clear); Glucose Negative (Negative); Ketones Negative (Negative); Leukocyte Esterase Small (Negative); Nitrite Negative (Negative); Urobilinogen 0.2 mg/dL (Up to 0.2); pH 6.5 (5-8)
[2023-02-14 21:43] LABS: Bacteria Rare HPF (Negative); Crystals Negative HPF (Negative); Epithelial Cells Rare HPF (Negative)
[2023-02-14 21:44] LABS: C & S Indicated? Yes; Casts Negative LPF (Negative); Mucus Trace (Negative)
== END 2023-02-14 16:48 | disposition home or self-care (01) ==
LOC: LBN 16:47
PROVIDERS: PCP Family Medicine; Visit Provider Family Medicine
DX: R30.0 Dysuria (principal); R82.89 Other abnormal findings on cytological and histological examination of urine
CPT/HCPCS: 81003; 81015; 87086

== ENCOUNTER 2023-02-24 14:11 | Outpatient (REF) | payer MEDICARE, BC, SELFPAY ==
[2023-02-24 17:07] LABS: Bilirubin Negative (Negative); Blood Negative (Negative); Clarity Clear (Clear); Glucose Negative (Negative); Ketones Negative (Negative); Leukocyte Esterase Trace (Negative); Nitrite Negative (Negative); Specific Gravity 1.015 (1.005-1.025); Urobilinogen 0.2 mg/dL (Up to 0.2)
[2023-02-24 17:30] LABS: Bacteria Rare HPF (Negative); C & S Indicated? Yes; Casts Negative LPF (Negative); Crystals Negative HPF (Negative); Epithelial Cells Rare HPF (Negative); Mucus Negative (Negative); RBC 0-2 HPF (0-2); WBC 0-2 HPF (0-5)
== END 2023-02-24 14:12 | disposition home or self-care (01) ==
LOC: LBN 14:11
PROVIDERS: PCP Family Medicine; Visit Provider Family Medicine
DX: R30.0 Dysuria (principal)
CPT/HCPCS: 81003; 81015; 87086

== ENCOUNTER 2023-03-07 03:02 | Outpatient (CLI) | payer MEDICARE, BC, SELFPAY ==
[2023-03-07 15:26] LABS: HCT 38.1 % (36.0-46.0); HGB 12.5 g/dL (11.2-15.7); MCH 30.2 pg (27.0-33.0); MCHC 32.8 % (32.0-36.0); MCV 92 fL (80-95); MPV 9.3 fL (8.0-11.0); Platelet Count 385 10^3/uL (130-400); RBC 4.14 10^6/uL (3.93-5.22); RDW-SD 50.9 fL; WBC 9.59 10^3/uL (4.4-10.8)
[2023-03-07 16:11] LABS: ALT 33 U/L (14-59); AST 17 U/L (15-37); Albumin 4.2 g/dL (3.4-5.0); Alkaline Phosphatase 54 U/L (46-116); Anion Gap 11.9 mmol/L (3-11); BUN 13 mg/dL (7-18); Bilirubin, Total 0.3 mg/dL (0.2-1.0); CO2 24.1 mmol/L (21.0-32.0); CREATININE 0.9 mg/dL (0.55-1.02); Calcium 10.1 mg/dL (8.5-10.1); Chloride 104 mmol/L (98-107); Estimated GFR 66.26 (mL/min/1.73m2); Glucose 116 mg/dL (74-106); Potassium 3.3 mmol/L (3.5-5.1); Sodium 140 mmol/L (136-145); Total Protein 8.1 g/dL (6.4-8.2)
== END 2023-03-07 03:03 | disposition home or self-care (01) ==
PROVIDERS: PCP Family Medicine; Visit Provider Family Medicine
DX: I10 Essential (primary) hypertension (principal); R10.9 Unspecified abdominal pain
CPT/HCPCS: 36415; 80053; 85027

== ENCOUNTER 2023-03-18 03:27 | Outpatient (CLI) | payer MEDICARE, BC, SELFPAY ==
[2023-03-18 08:57] LABS: Anion Gap 15.6 mmol/L (3-11); BUN 13 mg/dL (7-18); CO2 22.4 mmol/L (21.0-32.0); CREATININE 0.9 mg/dL (0.55-1.02); Calcium 10.3 mg/dL (8.5-10.1); Chloride 104 mmol/L (98-107); Estimated GFR 66.26 (mL/min/1.73m2); Glucose 98 mg/dL (74-106); Potassium 3.9 mmol/L (3.5-5.1); Sodium 142 mmol/L (136-145)
== END 2023-03-18 03:28 | disposition home or self-care (01) ==
PROVIDERS: PCP Family Medicine; Visit Provider Family Medicine
DX: E87.6 Hypokalemia (principal); I10 Essential (primary) hypertension
CPT/HCPCS: 36415; 80048; 83735

== ENCOUNTER → 2023-03-21 00:24 | Outpatient (CLI) | payer MEDICARE, BC, SELFPAY ==
--- NOTE | 2023-03-21 07:30 | DI.CT_ITS ---
Exam(s) CT ABDOMEN PELVIS W EXAM: CT ABDOMEN PELVIS W CLINICAL HISTORY: lower abd/pelvic pain.r10.9,r10.2 TECHNIQUE: Imaging Protocol: Axial computed tomography images with coronal and sagittal reformatted images were created and reviewed CONTRAST MATERIAL: Intravenous: Omnipaque 350 Contrast volume:100 mL Oral: Yes COMPARISON: CT CT ABDOMEN PELVIS W from 05/14/2018 FINDINGS: ABDOMEN: Lung Bases: There is scarring in the lung bases. Liver: Normal density. No measurable mass. Portal, Superior Mesenteric, and Splenic Veins: Unremarkable. Gallbladder and Biliary Tract: No radiodense calculus or dilation. Pancreas: Normal density, no abnormal calcifications or inflammatory process. Spleen: Normal. Adrenals: No masses seen. Kidneys: Normal size, contour and axis. Left nephrolithiasis. No obstructive uropathy. No masses se en. Abdominal Aorta: Abdominal portion non-dilated. Atherosclerosis. Bowel: No obstruction or bowel wall thickening. No evidence of appendicitis. Peritoneal Cavity: No ascites, collection or mesenteric inflammatory response. No free air. Lymph Nodes: Within normal limits. Bones: Within normal limits for the patient's age. Soft Tissues: Unremarkable. PELVIS: Bladder: Symmetric distention, no gross wall thickening. Reproductive Organs: Status post hysterectomy. Lymph Nodes: Within normal limits. Bones: Within normal limits for the patient's age. IMPRESSION: 1. No acute abdominal or pelvic process. 2. Left nephrolithiasis without evidence of obstructive uropathy. RADIATION DOSE DELIVERED: Total DLP DATA REPOSITORY: All CT scans at this facility are submitted to the National Radiology Data Registry (NRDR) Dose Index Registry (DIR) with the [employer] (A[employer]). RADIATION OPTIMIZATION: All CT scans at this facility use at least one of these dose optimization te chniques: automated exposure control; mA and/or kV adjustment per patient size (includes targeted exa ms where dose is matched to clinical indication); or iterative reconstruction.
[2023-03-21] MEDS: Omnipaque 350 MG/ML 500 ML BTL-Imaging package 100 ML IJ (12:43)
[2023-03-21] MEDS: Normal Saline Flush 10 ML SYR IVP (12:43)
[2023-03-21] MEDS: Barium Sulfate 2% W/V-Creamy Vanilla Smoothie 450 ML BTL 900 ML PO (12:45)
[2023-03-21] MEDS: Normal Saline - Diluent 50 ML VIAL IJ (12:46)
== END ==
PROVIDERS: PCP Family Medicine; Visit Provider Family Medicine
DX: N20.0 Calculus of kidney; Z85.42 Personal history of malignant neoplasm of other parts of uterus
CPT/HCPCS: 74177

== ENCOUNTER 2023-06-25 11:45 | Outpatient (REF) | payer MEDICARE, BC, SELFPAY ==
[2023-06-25 21:01] LABS: Bilirubin Negative (Negative); Blood Trace-intact (Negative); Clarity Sl Cloudy (Clear); Glucose Negative (Negative); Ketones Negative (Negative); Leukocyte Esterase Small (Negative); Nitrite Negative (Negative); Specific Gravity 1.015 (1.005-1.025); Urobilinogen 0.2 mg/dL (Up to 0.2)
[2023-06-25 21:12] LABS: Epithelial Cells Negative HPF (Negative); RBC Negative HPF (0-2); WBC 20-50 HPF (0-5)
[2023-06-25 21:13] LABS: Bacteria Negative HPF (Negative); C & S Indicated? Yes; Casts Negative LPF (Negative); Crystals Negative HPF (Negative); Mucus Negative (Negative); Other Cells Rare Renal (Negative)
== END 2023-06-25 11:46 | disposition home or self-care (01) ==
LOC: LBN 11:45
PROVIDERS: PCP Family Medicine; Visit Provider Nurse Practitioner Family
DX: R30.0 Dysuria (principal); R35.0 Frequency of micturition; N39.0 Urinary tract infection, site not specified
CPT/HCPCS: 81003; 81015; 87086

== ENCOUNTER 2023-06-27 17:57 | Outpatient (REF) | payer MEDICARE, BC, SELFPAY ==
[2023-07-02 19:56] LABS: Source: Passed Stone
== END 2023-06-27 17:58 | disposition home or self-care (01) ==
LOC: LBN 17:57
PROVIDERS: PCP Family Medicine; Referring Provider Family Medicine; Visit Provider Family Medicine
DX: R30.0 Dysuria (principal)
CPT/HCPCS: 82365

== ENCOUNTER 2023-08-21 05:00 | Outpatient (CLI) | payer MEDICARE, BC, SELFPAY ==
[2023-08-21 14:11] LABS: HCT 35.4 % (36.0-46.0); HGB 11.2 g/dL (11.2-15.7); MCH 30.4 pg (27.0-33.0); MCHC 31.6 % (32.0-36.0); MCV 96 fL (80-95); MPV 8.9 fL (8.0-11.0); Platelet Count 383 10^3/uL (130-400); RBC 3.68 10^6/uL (3.93-5.22); RDW 14.7 % (11.7-14.6); RDW-SD 52.3 fL; WBC 11.32 10^3/uL (4.4-10.8)
[2023-08-21 14:36] LABS: Hemoglobin A1C 6.1 % (<5.7)
[2023-08-21 15:34] LABS: ALT 25 U/L (14-59); AST 10 U/L (15-37); Albumin 4.2 g/dL (3.4-5.0); Alkaline Phosphatase 59 U/L (46-116); Anion Gap 15.6 mmol/L (3-11); BUN 18 mg/dL (7-18); Bilirubin, Total 0.3 mg/dL (0.2-1.0); CO2 21.4 mmol/L (21.0-32.0); Calcium 9.4 mg/dL (8.5-10.1); Calculated LDL 67 mg/dL (<100); Chloride 100 mmol/L (98-107); Cholesterol 141 mg/dL (<200); Estimated GFR 58.02 (mL/min/1.73m2); Glucose 133 mg/dL (74-106); HDL Cholesterol 38 mg/dL (40-60); Potassium 4.2 mmol/L (3.5-5.1); Sodium 137 mmol/L (136-145); TSH (W/Ref FT4) 2.34 uIU/mL (0.36-3.74); Total Protein 7.7 g/dL (6.4-8.2); Triglyceride 180 mg/dL (<150)
== END 2023-08-21 05:01 | disposition home or self-care (01) ==
PROVIDERS: PCP Family Medicine; Visit Provider Family Medicine
DX: E03.9 Hypothyroidism, unspecified (principal); R73.09 Other abnormal glucose; I10 Essential (primary) hypertension
CPT/HCPCS: 36415; 80053; 80061; 85027; 83036; 84443

== ENCOUNTER 2023-09-05 02:40 | Outpatient (CLI) | payer MEDICARE, BC, SELFPAY ==
[2023-09-05 14:15] LABS: HGB 11.4 g/dL (11.2-15.7); MCH 30.6 pg (27.0-33.0); MCHC 32.6 % (32.0-36.0); MCV 94 fL (80-95); MPV 8.7 fL (8.0-11.0); Platelet Count 354 10^3/uL (130-400); RBC 3.72 10^6/uL (3.93-5.22); RDW 14.7 % (11.7-14.6); RDW-SD 51.1 fL; WBC 12.29 10^3/uL (4.4-10.8)
== END 2023-09-05 02:41 | disposition home or self-care (01) ==
PROVIDERS: PCP Family Medicine; Visit Provider Family Medicine
DX: D72.829 Elevated white blood cell count, unspecified (principal)
CPT/HCPCS: 36415; 85027

== ENCOUNTER 2023-10-27 08:07 | Inpatient (IN) | payer MEDICARE, BC, SELFPAY ==
[2023-10-27] VITALS (46 sets, daily range): BP systolic 100–163; BP diastolic 36–124; PULSE 57–87; RESP 14–27; TEMP 36.6–37; O2SAT 93–100
--- NOTE | 2023-10-27 08:15 | RT.EKG_ITS ---
APPROVED REPORT Exam: Resting ECG Reason for Exam: Abd Pain Patient Location: E HR:74 bpm ECG Measurements Heart Rate 74 AXIS ND 197 P 39 QRSd 96 QRS -38 QT 372 T 71 QTc 415 Conclusion Sinus rhythm...normal P axis, V-rate 60- 99 LVH with secondary repolarization abnormality...multi-LVH criteria, abnrm ST-T
--- NOTE | 2023-10-27 08:45 | DI.US_ITS ---
Exam(s) US ABDOMEN EXAM: US ABDOMEN CLINICAL HISTORY: Abdominal pain resolving, Hx of Abd CA, R/O TECHNIQUE: Ultrasound abdomen performed using standard protocol. COMPARISON: US US ABDOMEN from 09/24/[address] ABDOMEN PELVIS W from 03/21/2023 FINDINGS: LIVER: Mild hepatic steatosis. Liver measures 16.3 cm in length, unchanged from prior. No focal olinda er lesions are seen. GALLBLADDER: No evidence of cholelithiasis. No evidence of wall thickening. No pericholecystic fluid identified. OLVERA'S SIGN: Negative. BILIARY SYSTEM: No intrahepatic or extrahepatic biliary ductal dilation. KIDNEYS: Kidneys are symmetric in size. No evidence of renal calculi. No evidence of hydronephrosis. No renal mass or cyst identified. PANCREAS: Normal where visualized. SPLEEN: Not enlarged. ABDOMINAL AORTA AND IVC: Visualized portions normal caliber. ASCITES: None seen. IMPRESSION: Mild hepatic steatosis. No evidence of gallbladder abnormality or biliary dilatation. DATA REPOSITORY:
--- NOTE | 2023-10-27 08:46 | ED.GENADUL_ITS ---
Discharge Plan Disposition Patient Disposition: Home Condition: Stable Discharge Details Clinical Impression: Elevated troponin I level, Atypical chest pain, Abdominal pain Primary Care Provider: Eve Londono ED Provider: Liliana Angeles Discharge Data Discharge Date/Time-TO BE ENTERED AT DEPARTURE: 10/27/23 15:28 HPI General Mode of arrival: ambulatory . Date/Time Provider Initiated Documentation: 10/27/23 08:21 . Limitations to Documentation: no limitations . Information obtained by: patient, family, RN notes reviewed and old records reviewed . Related Data Home Medications Medication Instructions Recorded Confirmed acetaminophen 500 mg tablet 1 tab PO DAILY PRN 07/30/12 10/27/23 (Tylenol Extra Strength) fexofenadine 180 mg tablet 180 mg PO DAILY ##90 07/30/12 10/27/23 (Preeti) cyanocobalamin (vitamin B-12) 1,000 mcg PO DAILY 08/06/13 10/27/23 1,000 mcg tablet (Vitamin B-12) selenium 200 mcg tablet 200 mcg PO DAILY 05/05/20 10/27/23 bisacodyl 5 mg tablet 5 mg PO DAILY PRN 11/27/20 10/27/23 cholecalciferol (vitamin D3) 25 50 mcg PO DAILY 11/27/20 10/27/23 mcg (1,000 unit) capsule docusate sodium 250 mg capsule 500 mg PO DAILY 11/27/20 10/27/23 fluocinonide 0.05 % topical cream 1 applic topical BID PRN 11/27/20 10/27/23 folic acid 400 mcg tablet 0.8 mg PO DAILY 11/27/20 10/27/23 hydrocortisone 1 % topical 1 applic topical DAILY PRN 11/27/20 10/27/23 ointment (Aquaphor Itch Relief) fluticasone propionate 50 2 spray NS DAILY #16 grams 02/09/21 10/27/23 mcg/actuation nasal spray,suspension estradiol 0.01% (0.1 mg/gram) 1 appful vaginal DAILY #42.5 grams 03/07/22 10/27/23 vaginal cream (Estrace) albuterol sulfate 90 mcg/actuation 2 puff inhalation Q6H PRN 08/22/22 10/27/23 aerosol inhaler (Ventolin HFA) shortness of breath or wheezing #25.5 grams magnesium oxide 500 mg PO DAILY 08/22/22 10/27/23 vitamin E 400 unit tablet 45 mg PO DAILY 08/22/22 10/27/23 hydrocortisone valerate 0.2 % 1 applic topical DAILY PRN PRN 10/09/22 10/27/23 topical cream psoriasis #60 grams megestrol 40 mg tablet 40 mg PO QID #120 tabs 10/20/22 10/27/23 levothyroxine 25 mcg tablet 25 mcg PO DAILY #90 tab-caps 01/09/23 10/27/23 (Synthroid) mupirocin 2 % topical ointment 1 applic topical BID #30 grams 01/21/23 10/27/23 potassium chloride 20 mEq 20 meq PO DAILY #90 tabs 03/09/23 10/27/23 tablet,extended release spironolactone 25 mg tablet 25 mg PO BID #180 tabs 03/09/23 10/27/23 atorvastatin 10 mg tablet 10 mg PO DAILY #90 tabs 05/29/23 10/27/23 metoprolol succinate 50 mg 50 mg PO DAILY #90 tabs 05/29/23 10/27/23 tablet,extended release 24 hr losartan 100 mg tablet 100 mg PO DAILY #90 tabs 06/27/23 10/27/23 nystatin-triamcinolone 100,000 1 applic topical BID PRN rash #60 07/28/23 10/27/23 unit/g-0.1 % topical cream grams nystatin 100,000 unit/gram topical 1 applic topical BID #30 grams 08/05/23 10/27/23 ointment amlodipine 10 mg tablet 10 mg PO DAILY #90 tabs 09/25/23 10/27/23 Previous Rx's Medication Instructions Recorded fluticasone propionate 50 2 spray NS DAILY #16 grams 02/09/21 mcg/actuation nasal spray,suspension estradiol 0.01% (0.1 mg/gram) 1 appful vaginal DAILY #42.5 grams 03/07/22 vaginal cream (Estrace) albuterol sulfate 90 mcg/actuation 2 puff inhalation Q6H PRN 08/22/22 aerosol inhaler (Ventolin HFA) shortness of breath or wheezing #25.5 grams hydrocortisone valerate 0.2 % 1 applic topical DAILY PRN PRN 10/09/22 topical cream psoriasis #60 grams megestrol 40 mg tablet 40 mg PO QID #120 tabs 10/20/22 levothyroxine 25 mcg tablet 25 mcg PO DAILY #90 tab-caps 01/09/23 (Synthroid) mupirocin 2 % topical ointment 1 applic topical BID #30 grams 01/21/23 potassium chloride 20 mEq 20 meq PO DAILY #90 tabs 03/09/23 tablet,extended release spironolactone 25 mg tablet 25 mg PO BID #180 tabs 03/09/23 atorvastatin 10 mg tablet 10 mg PO DAILY #90 tabs 05/29/23 metoprolol succinate 50 mg 50 mg PO DAILY #90 tabs 05/29/23 tablet,extended release 24 hr losartan 100 mg tablet 100 mg PO DAILY #90 tabs 06/27/23 nystatin-triamcinolone 100,000 1 applic topical BID PRN rash #60 07/28/23 unit/g-0.1 % topical cream grams nystatin 100,000 unit/gram topical 1 applic topical BID #30 grams 08/05/23 ointment amlodipine 10 mg tablet 10 mg PO DAILY #90 tabs 09/25/23 Allergies Allergy/AdvReac Type Severity Reaction Status Date / Time aspirin Allergy Severe HIVES Verified 10/27/23 08:22 NSAIDS (Non-Steroidal Allergy Severe HIVES Verified 10/27/23 08:22 Anti-Inflamma latex Allergy Intermediate redness Verified 10/27/23 08:22 enalapril AdvReac Severe SEVERE LEG Verified 10/27/23 08:22 PAIN hydrochlorothiazide AdvReac Mild Other (See Verified 10/27/23 08:22 Comment) cetirizine [From Zyrtec] AdvReac Knee pain Verified 10/27/23 08:22 lisinopril AdvReac cough Verified 10/27/23 08:22 bactrim Allergy Severe Red face, Uncoded 10/27/23 08:22 throat felt swollen sulfamethoxazole-trimethoprim Allergy Face gets Uncoded 10/27/23 08:22 800-160 mg blotchy General Stated Complaint: Abd Prob RAYRAY: 3 Review of Systems All systems reviewed & are unremarkable except as noted in HPI and below Constitutional Constitutional: Reports as per HPI and Reports excessive sweating Cardiovascular Cardiovascular: Denies chest pain, Denies leg edema, Denies lightheadedness and Reports dyspnea on exertion Respiratory Respiratory: Denies cough, Reports dyspnea on exertion, Denies stridor and Denies wheezing Gastrointestinal Gastrointestinal: Reports as per HPI, Reports abdominal pain, Denies melena, Denies hematochezia, Denies coffee ground emesis, Denies diarrhea, Reports nausea and Denies vomiting Genitourinary Genitourinary: Reports as per HPI, Denies difficulty voiding, Denies dysuria and Reports other (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 Appears stated age. Morbidly obese body habitus. Head: Normocephalic, no trauma. Eyes: Pupils PERRL, Red reflex noted, EOM's intact. Eyelids symmetrical without lesions, discharge, or swelling. Chest: RRR, Normal S1, S2, distal pulses intact. Resp: Lungs clear to auscultation bilaterally, no wheezes, rales, or rhonchi. Abdomen: Soft, non-distended, Normoactive bowel sounds all 4 quads. No masses, no guarding bilateral lower abdominal tenderness with palpation, exam somewhat limited due to patient girth. Musculoskeletal: Unable to assess gait, Moves all 4 extremities without difficulty. Skin: No suspicious rashes or lesions. Capillary refill less than 2 sec. Neurologic: Cranial nerves II-XII intact. Alert and oriented x 3. Motor: No deficits noted. Sensory: Intact bilaterally all 4 extremities. Hematologic/Lymphatic: No ecchymosis, no lymphadenopathy. Course Vital Signs Vital signs: Vital Signs Temperature 36.6 C 10/27/23 08:09 Pulse 84 10/27/23 08:09 Respiratory Rate 14 10/27/23 08:09 Blood Pressure 148/52 H 10/27/23 08:09 Pulse Oximetry 100 10/27/23 08:09 Temperature 36.6 C 10/27/23 08:34 Pulse 84 10/27/23 08:34 Respiratory Rate 14 10/27/23 08:34 Blood Pressure 148/52 H 10/27/23 08:34 Blood Pressure Position Sitting 10/27/23 08:34 Pulse Oximetry 100 10/27/23 08:34 Oxygen Delivery Method Room Air 10/27/23 08:34 Oxygen Flow Rate 0 10/27/23 08:34 Pain Level 4 10/27/23 08:34 Medical Decision Making 78-year-old female presents to the ER with a chief complaint lower abdominal abdominal pain that began around 7 AM this morning. Patient reports that she began to have some diaphoresis, nausea and had a bowel movement. This was shortly after taking her a.m. medications with some coffee. She reports upon examination that her pain is resolving. The pain did move from her lower abdomen up into her mid abdomen. She does have a past medical history of endometrial cancer, and multiple abdominal surgeries, per patient report she does take chemotherapy for cancer prevention. 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 PCP is [facility]. Other past medical history includes hypertension, obesity, sleep apnea, high cholesterol, she does use a CPAP at night. EKG was reviewed by Dr. Walsh and myself ER attending, old EKG available for review. No significant change noted. No evidence of ischemic changes. Upon my examination she does have some right lower quadrant abdominal tenderness with palpation, no masses palpated or guarding. She reports uncomfortableness and that her pain is resolving. She is hesitant to have a CT exam I did explain the risks and benefits and explained that I cannot rule out anything significant like an aneurysm or infection. Workup ordered including serial troponins, lipase urinalysis. Ultrasound of abdomen ordered. Will reconsider CT imaging after labs. Differential diagnose include not limited to CAD, AAA, UTI, diverticulosis diverticulitis, worsening abdominal/[employer] TECHNICIAN cancer Initial troponin 95, ultrasound shows aorta in normal caliber, white blood cell count 13.73, neutrophils 9.90 sodium 134 potassium 4.6, calcium 10.4 which is slightly high, lipase 69 urinalysis shows small leukocytes 5-10 WBCs, rare bacteria culture not indicated at this time. Will repeat EKG and troponin now at 3 hours. Patient is allergic to aspirin it does give her hives will consider clopidogrel or similar. Chest x-ray ordered and repeat EKG. Discussed troponin, patient is still complaining of some lower abdominal pain. She is allergic to aspirin she reports that she has convulsions and hives with aspirin. Will plan to consult with cardiology. 1304: [facility] [place] to speak with cardiology, Images sent and EKG's faxed. 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 Defer at this time for plavix and heparin. Will page hospitalist. 1422: Spoke with Dr. Arriaga who is on for hospitalist he agrees to accept patient for admission on [facility] to trend troponins. He does also recommend CT abdomen pelvis. CT abdomen pelvis without contrast ordered. Informed patient and family on plan of care they verbalized understanding. Patient transported up to room in hemodynamically stable condition. This text was generated using [employer] system, please disregard any oddities of phrase or misspellings. Medical Records Medical records reviewed: Yes I reviewed the patient's medical records. Lab Data Lab results reviewed: Yes I reviewed the patient's lab results. Labs: Laboratory Tests Range/Units 10/27/23 10/27/23 10/27/23 10:31 10:36 12:00 WBC (4.4-10.8) 10^3/uL 13.73 H RBC (3.93-5.22) 10^6/uL 3.79 L Hgb (11.2-15.7) g/dL 11.6 Hct (36.0-46.0) % 35.8 L MCV (80-95) fL 95 MCH (27.0-33.0) pg 30.6 MCHC (32.0-36.0) % 32.4 RDW (11.7-14.6) % 15.5 H Plt Count (130-400) 10^3/uL 209 MPV (8.0-11.0) fL 10.6 Immature Gran % % 1.2 Neutrophils % % 72.1 Lymphocytes % % 16.8 Monocytes % % 7.9 Eosinophils % % 1.5 Basophils % % 0.5 Nucleated RBC % (0.0-0.3) % 0.0 Absolute Neutrophils (1.2-6.7) 10^3/uL 9.90 H Absolute Lymphocytes (1.2-3.4) 10^3/uL 2.31 Absolute Monocytes (0.1-0.8) 10^3/uL 1.08 H Absolute Eosinophils (0.0-0.7) 10^3/uL 0.21 Absolute Basophils (0.0-0.2) 10^3/uL 0.07 Sodium (136-145) mmol/L 134 L Potassium (3.5-5.1) mmol/L 4.6 Chloride (98-107) mmol/L 99 Carbon Dioxide (21.0-32.0) mmol/L 23.2 Anion Gap (3-11) mmol/L 11.8 H BUN (7-18) mg/dL 13 Creatinine (0.55-1.02) mg/dL 1.0 Est GFR (CKD-EPI 2020) (mL/min/1.73m2) 58.02 Glucose (74-106) mg/dL 86 Calcium (8.5-10.1) mg/dL 10.4 H Magnesium (1.8-2.4) mg/dL 2.1 Total Bilirubin (0.2-1.0) mg/dL 0.41 AST (15-37) U/L 17 ALT (14-59) U/L 32 Alkaline Phosphatase (46-116) U/L 56 Troponin I (< or =60) ng/L 95 H* 84 H* NT-Pro-B Natriuret Pep (<300) pg/mL 102 Total Protein (6.4-8.2) g/dL 8.0 Albumin (3.4-5.0) g/dL 4.3 Triglycerides (<150) mg/dL 157 H Total Cholesterol (<200) mg/dL 148 LDL Cholesterol, Calc (<100) mg/dL 76 HDL Cholesterol (40-60) mg/dL 41 Lipase (16-77) U/L 69 TSH (0.36-3.74) uIU/mL 2.66 Urine Color (Yellow) Yellow Urine Clarity (Clear) Sl Cloudy Urine pH (5-8) 7.0 Ur Specific [place] (1.005-1.025) 1.015 Urine Protein (Neg-Trace) mg/dL Negative Urine Ketones (Negative) mg/dL Negative Urine Blood (Negative) Negative Urine Nitrite (Negative) Negative Urine Bilirubin (Negative) Negative Urine Urobilinogen (Up to 0.2) mg/dL 0.2 Ur Leukocyte Esterase (Negative) Small H Urine RBC (0-2) HPF 0-2 Urine WBC (0-5) HPF 5-10 Ur Epithelial Cells (Negative) HPF Rare Urine Crystals (Negative) HPF Negative Urine Bacteria (Negative) HPF Rare Urine Casts (Negative) LPF 0-2 Hyaline Urine Mucus (Negative) Negative Ur Culture Indicated? No Urine Glucose (Negative) mg/dL Negative Quality:SDOH Health Related Social Needs: No Data to Display PFSH All Active Problems (Updated 10/27/23 @ 15:19 by TOBY MEREDITH) Abdominal pain (Acute) Atypical chest pain (Acute) Elevated troponin I level (Acute) Elevated WBC count (Acute) Impaired glucose metabolism (Acute) History of endometrial cancer (Acute) Combined abdominal and pelvic pain (Acute) Dysuria (Acute) Infection of the breast and nipple (Acute) Yeast dermatitis (Acute) Abdominal discomfort (Acute) Fatigue (Acute) COVID-19 (Acute ~04/01/22) Back pain (Acute) Hypokalemia (Acute) Hypertension (Chronic) Anxiety (Chronic) Left knee pain (Acute) SOB (shortness of breath) (Acute) Vitamin D deficiency (Acute) Hearing loss (Acute) Vaginal mass (Acute ~06/19/18) recurrence of endometrial cancer Colon polyp (Chronic 07/12/02) adenomas polyps Endometrial cancer, grade I (Chronic 07/09/16) hysterectomy planned fro 07/15 at [facility] 07/16/16 S/P HYSTERECTOMY Hyperlipidemia (Chronic 07/31/12) Hypothyroidism (Chronic 07/31/12) Obesity (Chronic 08/12/14) Obstructive sleep apnea syndrome (Chronic 07/30/11) uses CPAP Psoriasis (Chronic) Vitamin B 12 deficiency (Chronic 08/03/14) Medical History Stress Acute UTI 12/10/22-treated at [place], [place] Phlegm in throat Cough Hyperglycemia (08/19/16) Migraine Migraine Abnormal mammogram of right breast 09/04/15 cat3, 6month f/u [place] [facility] [place] Elevated blood sugar level 08/19/16 Abdominal abscess (07/29/16) Acute meniscal injury of right knee (03/13/17) UTI (urinary tract infection) Surgical History History of bilateral ligation of fallopian tubes Status post appendectomy History of bilateral tubal ligation 04/21/82 S/P appendectomy 04/21/82 cystectomy (~1987) uterine Uterine fibroids removed (~1987) Ligation of fallopian tube (~1982) Hysterectomy, Laproscopic (07/16/16) [facility] Bilateral salpingectomy with oophorectomy (07/16/16) [facility] Appendectomy (~1982) Family History Mother , 76 Essential hypertension Heart disease Hyperlipidemia Myocardial infarction Father , 96 Essential hypertension Heart disease Hyperlipidemia Stroke Sister Essential hypertension Heart disease Stroke Brother , 59 Essential hypertension Heart disease Hyperlipidemia Brain cancer Brother Diabetes Essential hypertension Hyperlipidemia Brother Essential hypertension Brother Essential hypertension Hyperlipidemia Maternal Grandfather , 93 Heart disease Paternal Grandfather , 81 Essential hypertension Heart disease Maternal Grandmother , 54 Rheumatoid arthritis Paternal Grandmother , 80 Heart disease Social History Smoking/Tobacco Use Status: Former Tobacco Use Quit Date: 04/21/78 Tobacco: How many years used: 15 Quit status: quit date established Second Hand Exposure: Yes Smoking risk assessment performed?: Yes Alcohol Intake: current Alcohol Intake frequency: holidays/special occasions only Drug use: Never Substance use type: does not use Caregiver/Support person: No Household members: children Housing: house Communication Needs: None Do you need help understanding health information?: Never Pets and animals: No Sexually active: No Current gender identity: female What is your relationship status?: How often do you talk on the phone with friends or family?: decline to answer How often do you get together with friends or relatives?: decline to answer How often do you attend restorationist or moravian services?: decline to answer Do you belong to any clubs or organized social groups?: decline to answer Panel score (0-1 are the most socially isolated patients): 0 What type of physical activity do you participate in: weight lifting Seatbelt use: always Drive intox 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
[2023-10-27 10:38] LABS: Bilirubin Negative (Negative); Blood Negative (Negative); Clarity Sl Cloudy (Clear); Glucose Negative (Negative); Ketones Negative (Negative); Leukocyte Esterase Small (Negative); Nitrite Negative (Negative); Specific Gravity 1.015 (1.005-1.025); Urobilinogen 0.2 mg/dL (Up to 0.2)
[2023-10-27 10:44] LABS: Bacteria Rare HPF (Negative); C & S Indicated? No; Casts 0-2 Hyaline LPF (Negative); Crystals Negative HPF (Negative); Epithelial Cells Rare HPF (Negative); Mucus Negative (Negative); RBC 0-2 HPF (0-2)
[2023-10-27 10:52] LABS: Abs Immature Grans 0.17 10^3/uL (0.0-0.06); Absolute Basophil Count 0.07 10^3/uL (0.0-0.2); Absolute Monocyte Count 1.08 10^3/uL (0.1-0.8); Basophils % 0.5 %; Eosinophils % 1.5 %; HCT 35.8 % (36.0-46.0); HGB 11.6 g/dL (11.2-15.7); Immature Grans % 1.2 %; Lymphocytes % 16.8 %; MCH 30.6 pg (27.0-33.0); MCHC 32.4 % (32.0-36.0); MCV 95 fL (80-95); MPV 10.6 fL (8.0-11.0); Monocytes % 7.9 %; Neutrophils % 72.1 %; Platelet Count 209 10^3/uL (130-400); RBC 3.79 10^6/uL (3.93-5.22); RDW 15.5 % (11.7-14.6); RDW-SD 53.4 fL; WBC 13.73 10^3/uL (4.4-10.8)
[2023-10-27 10:53] LABS: Absolute Eosinophil Count 0.21 10^3/uL (0.0-0.7); Absolute Lymphocyte Count 2.31 10^3/uL (1.2-3.4)
[2023-10-27 11:22] LABS: ALT 32 U/L (14-59); AST 17 U/L (15-37); Albumin 4.3 g/dL (3.4-5.0); Alkaline Phosphatase 56 U/L (46-116); Anion Gap 11.8 mmol/L (3-11); BUN 13 mg/dL (7-18); Bilirubin, Total 0.41 mg/dL (0.2-1.0); CO2 23.2 mmol/L (21.0-32.0); Calcium 10.4 mg/dL (8.5-10.1); Chloride 99 mmol/L (98-107); Estimated GFR 58.02 (mL/min/1.73m2); Glucose 86 mg/dL (74-106); Lipase 69 U/L (16-77); Magnesium 2.1 mg/dL (1.8-2.4); Potassium 4.6 mmol/L (3.5-5.1); Sodium 134 mmol/L (136-145)
[2023-10-27 11:28] LABS: Troponin I 95 ng/L (< or =60)
--- NOTE | 2023-10-27 11:45 | RT.EKG_ITS ---
APPROVED REPORT Exam: Resting ECG Reason for Exam: repeat Patient Location: E HR:76 bpm ECG Measurements Heart Rate 76 AXIS ME 207 P 44 QRSd 86 QRS -36 QT 364 T 53 QTc 409 Conclusion Sinus rhythm...normal P axis, V-rate 60- 99
--- NOTE | 2023-10-27 12:16 | DI.RAD_ITS ---
Exam(s) XR PORTABLE CHEST AP EXAM: XR PORTABLE CHEST AP CLINICAL HISTORY: Chest pain TECHNIQUE: 2D digital imaging was performed. COMPARISON: CR,XR XR CHEST 2V PA LATERAL from 12/31/2020 FINDINGS: Exam is quite limited by abdominal soft tissues obscuring visualization of the lower portion of the lung north. LUNGS: Visualized upper lung north are clear. No pleural abnormality seen. HEART: Grossly normal size for projection. AORTA: Normal diameter. BONES: Unremarkable for age. Spine mostly obscured. Soft tissues: Unremarkable. IMPRESSION: Extremely limited exam. No acute findings. DATA REPOSITORY: RADIATION DOSE DELIVERED:
[2023-10-27] MEDS: Normal Saline 1,000 ML 250 ML IV (12:21)
[2023-10-27] MEDS: Ondansetron 4 MG/2 ML VIAL IVP (12:21)
[2023-10-27] MEDS: nitroGLYcerin 0.4 MG TAB SL (12:21)
[2023-10-27 12:37] LABS: Troponin I 84 ng/L (< or =60)
[2023-10-27 14:08] LABS: Calculated LDL 76 mg/dL (<100); Cholesterol 148 mg/dL (<200); HDL Cholesterol 41 mg/dL (40-60); TSH (W/Ref FT4) 2.66 uIU/mL (0.36-3.74); Triglyceride 157 mg/dL (<150)
--- NOTE | 2023-10-27 14:15 | DI.CT_ITS ---
Exam(s) CT ABDOMEN PELVIS WO EXAM: CT ABDOMEN PELVIS WO CLINICAL HISTORY: abdominal pain. TECHNIQUE: Imaging Protocol: Axial computed tomography images with coronal and sagittal reformatted images were created and reviewed. COMPARISON: CT CT ABDOMEN PELVIS W from 03/21/2023 FINDINGS: ABDOMEN: Lung Bases: Mitral calcification is seen. Atelectatic changes are seen in the lung bases, right grea ter than left. Liver: Normal density. No measurable mass is seen on this noncontrast examination. Gallbladder and biliary tract: No radiodense calculus or biliary ductal dilation. Pancreas: Normal density, no abnormal calcifications or inflammatory process. Spleen: Normal. Kidneys: The kidneys are incompletely imaged.There is a nonobstructing 2 mm stone in the left kidney. No masses seen. Adrenal glands: No mass is seen. Lymph nodes: Within normal limits. Abdominal Aorta: Abdominal portion non-dilated. Atherosclerotic calcification is present. Bones: Within normal limits. Soft Tissues: Within normal limits. IMPRESSION: 1. Due to a malfunction of the scanner, the lower abdomen and pelvis were not imaged on this examinat ion. 2. Nonobstructing left nephrolithiasis. 3. Findings were discussed with Lesa Thurman on 10/27/2023. RADIATION DOSE DELIVERED: 993.85mGy.cm Total DLP DATA REPOSITORY: All CT scans at this facility are submitted to the National Radiology Data Registry (NRDR) Dose Index Registry (DIR) with the [employer] (ACR). RADIATION OPTIMIZATION: All CT scans at this facility use at least one of these dose optimization te chniques: automated exposure control; mA and/or kV adjustment per patient size (includes targeted exa ms where dose is matched to clinical indication); or iterative reconstruction.
[2023-10-27 14:26] LABS: NT-proBNP 102 pg/mL (<300)
--- NOTE | 2023-10-27 14:56 | HPE_ITS ---
Date of service: 10/27/23 Time of Service: 14:56 Assessment and Plan Assessment and plan (1) Abdominal pain: Status: Acute Assessment and plan: Differential diagnosis ischemic bowel, nephrolithiasis, bowel spasm, constipation, diverticulitis. As her symptoms were acute despite having a BM this morning and given her leukocytosis and her UA was not particulary suspicous, I think coverage for diverticulitis is appropriate w/ cipro and flagyl pending formal full abdomen and pelvic CT scan can be obtained. I called D.I. and the CT is not expected to be up later tonight. I will repeat her CT tomorrow. Qualifiers: Abdominal location: lower abdomen, unspecified Qualified Code(s): R 10.30 - Lower abdominal pain, unspecified (2) Elevated WBC count: Status: Acute Assessment and plan: see above. Qualifiers: Leukocytosis type: bandemia Qualified Code(s): D72.825 - Bandemia (3) Elevated troponin I level: Status: Acute Assessment and plan: likely type II demand ischemia, negative EKG changes and no improvement w/ NTG. (4) History of endometrial cancer: Status: Acute Assessment and plan: continue her endometrial cancer. 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 Other medical problems include obesity, hyperlipidemia, hypothyroidism, hypertension, SHAMAR. Patient presented to the emergency department with acute onsets of lower abdominal/pelvic pain that began around 7 AM. She has a history of constipation and thought she was just constipated took a laxative had what she thought was a normal bowel movement this morning. No melena or hematochezia no vomiting although she did feel nauseated. Pain seems slightly better but then when it worsened it came back in waves and she presented to the emergency department. Evaluation emergency department clued chest x-ray and abdominal ultrasound. CT scan was down for the better part of today. Abdominal ultrasound showed mild fatty liver changes no focal liver masses. Gallbladder is intact no cholelithiasis no evidence of acute cholecystitis. Kidneys are symmetric in size no renal calculi were seen no evidence of hydronephrosis no renal mass. Pancreas with normal spleen with normal in IVC and abdominal aorta with normal. No ascites were seen. Chest x-ray showed no acute findings. Eventually patient underwent an abdominal pelvic CT without contrast and was a limited study as they were still having difficulties with the CT scanner. She was found to have a nonobstructing left nephrolithiasis and due to malfunction scan of the lower abdomen pelvis were not imaged on this exam. Labs were obtained including CBC that showed a mild leukocytosis of 13,000 normal hemoglobin 11.6 hematocrit 35% and normal platelet count 2 9000. Chemistry panel demonstrated normal BUN and creatinine of 13 and 1.0 no electrolyte abnormalities. LFTs were normal. However troponin I level was obtained and found to be elevated at 95 with subsequent levels of 84 and 105. proBNP is normal at 102. 2 ECGs were obtained the emergency department. First 1 shows sinus rhythm rate of 74 bpm with borderline criteria for LVH. Second ECG showed similar findings sinus rhythm rate [address] elevation or depression. Patient was given nitroglycerin 0.4 mg which dropped her blood pressure which point she was given IV fluids and subsequently given morphine sulfate. The ED provider contacted [facility] cardiology who according to the ED provider did not feel that this was a NSTEMI but more likely type II ischemia and recommended further workup for abdominal pain with a CT scan. As a said subsequent CT scan was obtained but was incomplete. Hospital service was asked to admit her for further evaluation of her abdominal pain. Review of Systems Constitutional Constitutional: Denies chills, Denies fever(s) and Denies poor appetite Cardiovascular Cardiovascular: Reports as per HPI, Denies chest pain, Denies rapid heart rate, Denies leg edema, Denies lightheadedness, Denies palpitations and Denies dyspnea Respiratory Respiratory: Reports as per HPI and Denies dyspnea Gastrointestinal Gastrointestinal: Reports as per HPI, Reports abdominal pain, Denies melena, Denies hematochezia, Denies coffee ground emesis, Reports constipation, Denies diarrhea, Reports nausea and Denies vomiting Genitourinary Genitourinary: Reports system reviewed and no additional complaints, except as documented, Denies hematuria, Denies difficulty voiding, Denies dysuria, Denies vaginal discharge and Reports other (Patient has noted intermittent episodes of passing some dark-colored mucus,) Musculoskeletal Musculoskeletal: Reports system reviewed and no additional complaints, except as documented Integumentary/Breasts Skin/Breast: Reports system reviewed and no additional complaints, except as documented Neurologic Neurologic: Reports system reviewed and no additional complaints, except as documented Endocrine Endocrine: Reports system reviewed and no additional complaints, except as documented and Denies palpitations Hematologic/Lymphatic Hematologic/Lymphatic: Reports system reviewed and no additional complaints, except as documented PFSH All Active Problems (Updated 10/27/23 @ 19:27 by Sourav Arriaga MD) Abdominal pain (Acute) Atypical chest pain (Acute) Elevated troponin I level (Acute) Elevated WBC count (Acute) Impaired glucose metabolism (Acute) History of endometrial cancer (Acute) Combined abdominal and pelvic pain (Acute) Dysuria (Acute) Infection of the breast and nipple (Acute) Yeast dermatitis (Acute) Abdominal discomfort (Acute) Fatigue (Acute) COVID-19 (Acute ~04/01/22) Back pain (Acute) Hypokalemia (Acute) Hypertension (Chronic) Anxiety (Chronic) Left knee pain (Acute) SOB (shortness of breath) (Acute) Vitamin D deficiency (Acute) Hearing loss (Acute) Vaginal mass (Acute ~06/19/18) recurrence of endometrial cancer Colon polyp (Chronic 07/12/02) adenomas polyps Endometrial cancer, grade I (Chronic 07/09/16) hysterectomy planned fro 07/15 at [facility] 07/16/16 S/P HYSTERECTOMY Hyperlipidemia (Chronic 07/31/12) Hypothyroidism (Chronic 07/31/12) Obesity (Chronic 08/12/14) Obstructive sleep apnea syndrome (Chronic 07/30/11) uses CPAP Psoriasis (Chronic) Vitamin B 12 deficiency (Chronic 08/03/14) Medical History Stress Acute UTI 12/10/22-treated at [place] [place] Phlegm in throat Cough Hyperglycemia (08/19/16) Migraine Migraine Abnormal mammogram of right breast 09/04/15 cat3, 6month [place] [facility] [place]vated blood sugar level 08/19/16 Abdominal abscess (07/29/16) Acute meniscal injury of right knee (03/13/17) UTI (urinary tract infection) Surgical History History of bilateral ligation of fallopian tubes Status post appendectomy History of bilateral tubal ligation 04/21/82 S/P appendectomy 04/21/82 cystectomy (~1987) uterine Uterine fibroids removed (~1987) Ligation of fallopian tube (~1982) Hysterectomy, Laproscopic (07/16/16) [facility] Bilateral salpingectomy with oophorectomy (07/16/16) [facility] Appendectomy (~1982) Family History Mother , 76 Essential hypertension Heart disease Hyperlipidemia Myocardial infarction Father , 96 Essential hypertension Heart disease Hyperlipidemia Stroke Sister Essential hypertension Heart disease Stroke Brother , 59 Essential hypertension Heart disease Hyperlipidemia Brain cancer Brother Diabetes Essential hypertension Hyperlipidemia Brother Essential hypertension Brother Essential hypertension Hyperlipidemia Maternal Grandfather , 93 Heart disease Paternal Grandfather , 81 Essential hypertension Heart disease Maternal Grandmother , 54 Rheumatoid arthritis Paternal Grandmother , 80 Heart disease Social History Smoking/Tobacco Use Status: Former Tobacco Use Quit Date: 04/21/78 Tobacco: How many years used: 15 Quit status: quit date established Second Hand Exposure: Yes Smoking risk assessment performed?: Yes Alcohol Intake: current Alcohol Intake frequency: holidays/special occasions only Drug use: Never Substance use type: does not use Caregiver/Support person: No Household members: children Housing: house Communication Needs: None Do you need help understanding health information?: Never Pets and animals: No Sexually active: No Current gender identity: female What is your relationship status?: How often do you talk on the phone with friends or family?: decline to answer How often do you get together with friends or relatives?: decline to answer How often do you attend adventist or sikhism services?: decline to answer Do you belong to any clubs or organized social groups?: decline to answer Panel score (0-1 are the most socially isolated patients): 0 What type of physical activity do you participate in: weight lifting Seatbelt use: always Drive 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] AdvReac Knee pain Verified 10/27/23 08:22 lisinopril AdvReac cough Verified 10/27/23 08:22 bactrim Allergy Severe Red face, Uncoded 10/27/23 08:22 throat felt swollen sulfamethoxazole-trimethoprim Allergy Face gets Uncoded 10/27/23 08:22 800-160 mg blotchy Home Medications Medication Instructions Recorded Confirmed Type acetaminophen 500 mg tablet 1 tab PO DAILY PRN 07/30/12 10/27/23 History (Tylenol Extra Strength) fexofenadine 180 mg tablet 180 mg PO DAILY ##90 07/30/12 10/27/23 History (Preeti) Cpap 08/01/12 11/16/18 Clinic cyanocobalamin (vitamin B-12) 1,000 mcg PO DAILY 08/06/13 10/27/23 History 1,000 mcg tablet (Vitamin B-12) selenium 200 mcg tablet 200 mcg PO DAILY 05/05/20 10/27/23 History bisacodyl 5 mg tablet 5 mg PO DAILY PRN 11/27/20 10/27/23 History cholecalciferol (vitamin D3) 25 50 mcg PO DAILY 11/27/20 10/27/23 History mcg (1,000 unit) capsule docusate sodium 250 mg capsule 500 mg PO DAILY 11/27/20 10/27/23 History fluocinonide 0.05 % topical cream 1 applic topical BID PRN 11/27/20 10/27/23 History folic acid 400 mcg tablet 0.8 mg PO DAILY 11/27/20 10/27/23 History hydrocortisone 1 % topical 1 applic topical DAILY PRN 11/27/20 10/27/23 History ointment (Aquaphor Itch Relief) fluticasone propionate 50 2 spray NS DAILY #16 grams 02/09/21 10/27/23 Rx mcg/actuation nasal spray,suspension estradiol 0.01% (0.1 mg/gram) 1 appful vaginal DAILY #42.5 grams 03/07/22 10/27/23 Rx vaginal cream (Estrace) albuterol sulfate 90 mcg/actuation 2 puff inhalation Q6H PRN 08/22/22 10/27/23 Rx aerosol inhaler (Ventolin HFA) shortness of breath or wheezing #25.5 grams magnesium oxide 500 mg PO DAILY 08/22/22 10/27/23 History vitamin E 400 unit tablet 45 mg PO DAILY 08/22/22 10/27/23 History hydrocortisone valerate 0.2 % 1 applic topical DAILY PRN PRN 10/09/22 10/27/23 Rx topical cream psoriasis #60 grams megestrol 40 mg tablet 40 mg PO QID #120 tabs 10/20/22 10/27/23 Rx levothyroxine 25 mcg tablet 25 mcg PO DAILY #90 tab-caps 01/09/23 10/27/23 Rx (Synthroid) mupirocin 2 % topical ointment 1 applic topical BID #30 grams 01/21/23 10/27/23 Rx potassium chloride 20 mEq 20 meq PO DAILY #90 tabs 03/09/23 10/27/23 Rx tablet,extended release spironolactone 25 mg tablet 25 mg PO BID #180 tabs 03/09/23 10/27/23 Rx atorvastatin 10 mg tablet 10 mg PO DAILY #90 tabs 05/29/23 10/27/23 Rx metoprolol succinate 50 mg 50 mg PO DAILY #90 tabs 05/29/23 10/27/23 Rx tablet,extended release 24 hr losartan 100 mg tablet 100 mg PO DAILY #90 tabs 06/27/23 10/27/23 Rx nystatin-triamcinolone 100,000 1 applic topical BID PRN rash #60 07/28/23 10/27/23 Rx unit/g-0.1 % topical cream grams nystatin 100,000 unit/gram topical 1 applic topical BID #30 grams 08/05/23 10/27/23 Rx ointment amlodipine 10 mg tablet 10 mg PO DAILY #90 tabs 09/25/23 10/27/23 Rx Exam Narrative Exam Narrative: Morbidly obese female lying in bed in mild discomfort secondary to her abdominal pain not nauseated or having vomiting in no acute distress she is alert and orient x 3. HEENT remarkable for obese neck unable to discern any JVD normal carotid pulses Lungs are clear to auscultation Heart is regular rate and rhythm Abdomen is obese with a large pannus with suprapubic tenderness. Handheld ultrasound was performed she has urinary volume 300 mL Lower extremities obese nontender no pitting edema good capillary refill Neuro exam grossly intact no focal motor deficits no focal cranial nerve deficits Results Labs 10/27/23 10:36 10/27/23 10:36 Labs: Laboratory Results - last 24 hr 10/27/23 10/27/23 10/27/23 10:31 10:36 12:00 WBC 13.73 H RBC 3.79 L Hgb 11.6 Hct 35.8 L MCV 95 MCH 30.6 MCHC 32.4 RDW 15.5 H Plt Count 209 MPV 10.6 Immature Gran % 1.2 Neutrophils % 72.1 Lymphocytes % 16.8 Monocytes % 7.9 Eosinophils % 1.5 Basophils % 0.5 Nucleated RBC % 0.0 Absolute Neutrophils 9.90 H Absolute Lymphocytes 2.31 Absolute Monocytes 1.08 H Absolute Eosinophils 0.21 Absolute Basophils 0.07 Sodium 134 L Potassium 4.6 Chloride 99 Carbon Dioxide 23.2 Anion Gap 11.8 H BUN 13 Creatinine 1.0 Est GFR (CKD-EPI 2020) 58.02 Glucose 86 Calcium 10.4 H Magnesium 2.1 Total Bilirubin 0.41 AST 17 ALT 32 Alkaline Phosphatase 56 Troponin I 95 H* 84 H* NT-Pro-B Natriuret Pep 102 Total Protein 8.0 Albumin 4.3 Triglycerides 157 H Total Cholesterol 148 LDL Cholesterol, Calc 76 HDL Cholesterol 41 Lipase 69 TSH 2.66 Urine Color Yellow Urine Clarity Sl Cloudy Urine pH 7.0 Ur Specific [place] 1.015 Urine Protein Negative Urine Ketones Negative Urine Blood Negative Urine Nitrite Negative Urine Bilirubin Negative Urine Urobilinogen 0.2 Ur Leukocyte Esterase Small H Urine RBC 0-2 Urine WBC 5-10 Ur Epithelial Cells Rare Urine Crystals Negative Urine Bacteria Rare Urine Casts 0-2 Hyaline Urine Mucus Negative Ur Culture Indicated? No Urine Glucose Negative Last Vital Signs Temp 36.6 C 10/27/23 08:34 Pulse 80 10/27/23 14:30 Resp 23 10/27/23 14:31 BP 142/102 H 10/27/23 14:30 Pulse Ox 95 10/27/23 14:31 Time Spent Time spent with Patient: 55-74 minutes Time was spent: preparing to see the patient(eg.review tests), obtaining and/or reviewing separately otained hiistory, ordering medications,tests, procedures, referring, communicating with other health respiratory care technician, indepentently interpreting results, counseling the patient and care coordination
[2023-10-27] MEDS: MORPHine 10 MG/ML VIAL 2 MG IVP (15:20)
[2023-10-27 16:04] LABS: Troponin I 105 ng/L (< or =60)
--- NOTE | 2023-10-27 16:36 | W.PC.ACHO ---
Registration Status: REG ER Primary Language: Preferred Language: Slovenian ED Information & Data Chief Complaint Abd Prob 10/27/23 10:26 Chief Complaint Abd Prob 10/27/23 09:02 Triage Note Pt arrives to ED c/o lower 10/27/23 08:09 mid abd pain. No vomiting. Normal BM this AM. Hx of endometrial CA; hx of total hysterectomy - takes Megestrol for CA prevention d/t recurrence of CA in vaginal canal Pt took Tylenol 500 mg [facility] Medical / Surgical History (Last Reviewed 10/27/23 @ 09:00 by Liliana Angeles NP) Stress Acute UTI Phlegm in throat Cough Hyperglycemia (08/19/16) Migraine Migraine Abnormal mammogram of right breast Elevated blood sugar level Abdominal abscess (07/29/16) Acute meniscal injury of right knee (03/13/17) UTI (urinary tract infection) (Last Reviewed 10/27/23 @ 09:00 by Liliana Angeles NP) History of bilateral ligation of fallopian tubes Status post appendectomy History of bilateral tubal ligation S/P appendectomy cystectomy (~1987) Uterine fibroids removed (~1987) Ligation of fallopian tube (~1982) Hysterectomy, Laproscopic (07/16/16) Bilateral salpingectomy with oophorectomy (07/16/16) Appendectomy (~1982) Most Recent Vital Signs Temperature 36.6 C 10/27/23 08:34 Pulse 80 10/27/23 14:30 Pulse 72 10/27/23 14:31 Respiratory Rate 23 10/27/23 14:31 Respiratory Effort Normal 10/27/23 10:26 Blood Pressure 142/102 H 10/27/23 14:30 Blood Pressure Mean 113 10/27/23 14:30 Blood Pressure Position Sitting 10/27/23 08:34 Pulse Oximetry 95 10/27/23 14:31 Oxygen Delivery Method Room Air 10/27/23 08:34 Oxygen Flow Rate 0 10/27/23 08:34 Pain Level 4 10/27/23 08:34 Allergies aspirin Allergy (Severe, Verified 10/27/23 08:22) HIVES Severe hive, convulsion, per pt. -BR NSAIDS (Non-Steroidal Anti-Inflamma Allergy (Severe, Verified 10/27/23 08:22) HIVES latex Allergy (Intermediate, Verified 10/27/23 08:22) redness enalapril Adverse Reaction (Severe, Verified 10/27/23 08:22) SEVERE LEG PAIN hydrochlorothiazide Adverse Reaction (Mild, Verified 10/27/23 08:22) Other (See Comment) Stiff cetirizine [From Zyrtec] Adverse Reaction (Verified 10/27/23 08:22) Knee pain lisinopril Adverse Reaction (Verified 10/27/23 08:22) cough bactrim Allergy (Severe, Uncoded 10/27/23 08:22) Red face, throat felt swollen sulfamethoxazole-trimethoprim 800-160 mg Allergy (Uncoded 10/27/23 08:22) Face gets blotchy Precautions Isolation Standard precaution 10/27/23 10:26 Active Medications Generic Name Dose Route Start Last Admin Trade Name Brianq PRN Reason Stop Dose Admin Sodium Chloride 1,000 mls @ 250 mls/hr 10/27/23 11:59 10/27/23 12:21 Saline 1000ml Bag IV 10/27/23 15:58 250 mls/hr INFUSION STA Administration IV IV Catheter Type [Left Saline Lock Antecubital] IV Catheter Gauge [Left 20 Antecubital] Diagnostics 10/27/23 10/27/23 10/27/23 Range/Units 12:00 10:36 10:31 WBC 13.73 H (4.4-10.8) 10^3/uL RBC 3.79 L (3.93-5.22) 10^6/uL Hgb 11.6 (11.2-15.7) g/dL Hct 35.8 L (36.0-46.0) % MCV 95 (80-95) fL MCH 30.6 (27.0-33.0) pg MCHC 32.4 (32.0-36.0) % RDW 15.5 H (11.7-14.6) % Plt Count 209 (130-400) 10^3/uL MPV 10.6 (8.0-11.0) fL Immature Gran % 1.2 % Neutrophils % 72.1 % Lymphocytes % 16.8 % Monocytes % 7.9 % Eosinophils % 1.5 % Basophils % 0.5 % Nucleated RBC % 0.0 (0.0-0.3) % Absolute Neutrophils 9.90 H (1.2-6.7) 10^3/uL Absolute Lymphocytes 2.31 (1.2-3.4) 10^3/uL Absolute Monocytes 1.08 H (0.1-0.8) 10^3/uL Absolute Eosinophils 0.21 (0.0-0.7) 10^3/uL Absolute Basophils 0.07 (0.0-0.2) 10^3/uL Sodium 134 L (136-145) mmol/L Potassium 4.6 (3.5-5.1) mmol/L Chloride 99 (98-107) mmol/L Carbon Dioxide 23.2 (21.0-32.0) mmol/L Anion Gap 11.8 H (3-11) mmol/L BUN 13 (7-18) mg/dL Creatinine 1.0 (0.55-1.02) mg/dL Est GFR (CKD-EPI 2020) 58.02 (mL/min/1.73m2) Glucose 86 (74-106) mg/dL Calcium 10.4 H (8.5-10.1) mg/dL Magnesium 2.1 (1.8-2.4) mg/dL Total Bilirubin 0.41 (0.2-1.0) mg/dL AST 17 (15-37) U/L ALT 32 (14-59) U/L Alkaline Phosphatase 56 (46-116) U/L Troponin I 84 H* 95 H* (< or =60) ng/L NT-Pro-B Natriuret Pep 102 (<300) pg/mL Total Protein 8.0 (6.4-8.2) g/dL Albumin 4.3 (3.4-5.0) g/dL Triglycerides 157 H (<150) mg/dL Total Cholesterol 148 (<200) mg/dL LDL Cholesterol, Calc 76 (<100) mg/dL HDL Cholesterol 41 (40-60) mg/dL Lipase 69 (16-77) U/L TSH 2.66 (0.36-3.74) uIU/mL Urine Color Yellow (Yellow) Urine Clarity Sl Cloudy (Clear) Urine pH 7.0 (5-8) Ur Specific [place] 1.015 (1.005-1.025) Urine Protein Negative (Neg-Trace) mg/dL Urine Ketones Negative (Negative) mg/dL Urine Blood Negative (Negative) Urine Nitrite Negative (Negative) Urine Bilirubin Negative (Negative) Urine Urobilinogen 0.2 (Up to 0.2) mg/dL Ur Leukocyte Esterase Small H (Negative) Urine RBC 0-2 (0-2) HPF Urine WBC 5-10 (0-5) HPF Ur Epithelial Cells Rare (Negative) HPF Urine Crystals Negative (Negative) HPF Urine Bacteria Rare (Negative) HPF Urine Casts 0-2 Hyaline (Negative) LPF Urine Mucus Negative (Negative) Ur Culture Indicated? No Urine Glucose Negative (Negative) mg/dL Intake and Output - 24 Hour Total 10/27/23 08:07 thru 10/27/23 08:09 Weight 108.862 kg Falls Risk Assessment History of Falls No History 10/27/23 08:32 Contributing Factors No Factors 10/27/23 08:32 Ambulatory Aids Independent 10/27/23 08:32 Tubes/Lines W/no contributing factors 10/27/23 08:32 Gait Evaluation No gait disturbance 10/27/23 08:32 Cognition No cognitive impairment 10/27/23 08:32 Fall Total Score 10 10/27/23 08:32 Level of Risk Standard/Low Risk 10/27/23 08:32 v v v v v v v v v Sending and/or Receiving Nurses: Please use comment section below to note any information pertinent to the patient hand-off not included above. Information / Comments: Came to ED this morning with abdominal pain pain started midline close to pubis. has since slowly moved upward. [place]STEMI[place] [facility], CT, and Trop trend monitoring. Pt is headed to CT scan now. No current EKG changes A&Ox4 independent occasionally dizzy when getting up high wbc, high calcium, trops are lower than intitial assessment 18g in LAC negative for UTI pt has been given morphine, nitro, and zofran Report received from: Alfredo [id number]
--- NOTE | 2023-10-27 18:15 | RT.EKG_ITS ---
APPROVED REPORT Exam: Resting ECG Reason for Exam: +troponin Patient Location: I HR:75 bpm ECG Measurements Heart Rate 75 AXIS MA 205 P 31 QRSd 93 QRS -36 QT 374 T 41 QTc 418 Conclusion Sinus rhythm...normal P axis, V-rate 50- 99 LAFB Abnormal R wave progression, possibly due to lead misplacement
[2023-10-27 19:28] LABS: NT-proBNP 259 pg/mL (<300)
[2023-10-27 19:31] LABS: Troponin I 67 ng/L (< or =60)
[2023-10-27 19:59] LABS: Lab Add On Test DONE
[2023-10-27 20:01] LABS: ESR 18 mm/hr (0-30)
[2023-10-27 20:09] LABS: C-Reactive Protein < 0.50 mg/dL (<or=0.5)
[2023-10-27 20:27] LABS: Procalcitonin < 0.1 ng/mL
[2023-10-27] MEDS: Senna TAB 1 TAB PO (20:35)
[2023-10-27] MEDS: Polyethylene Glycol 3350 17 GM PACKET PO (20:35)
[2023-10-27] MEDS: Bisacodyl 10 MG SUPP PR (20:35)
[2023-10-27] MEDS: Psyllium PKT 1 EACH PO (20:35)
[2023-10-27] MEDS: Oxybutynin 5 MG TAB PO (20:36)
[2023-10-27] MEDS: Normal Saline Flush 10 ML SYR IVP (20:36)
[2023-10-27] MEDS: CIPROFLOXACIN 400 MG/200 ML BAG 200 MG IVPB (20:42)
[2023-10-27] MEDS: Lactated Ringers 1,000 ML 100 ML IV (20:44)
[2023-10-27] MEDS: MORPHine 2 MG/ML SYR IVP (20:44)
[2023-10-27 20:48] LABS: Lactate 2.7 mmol/L (0.9-1.7)
[2023-10-27] MEDS: amLODIPine 10 MG TAB PO (22:02)
[2023-10-27] MEDS: Atorvastatin 10 MG TAB PO (22:02)
[2023-10-27] MEDS: metroNIDAZOLE 500 MG/100 ML BAG 100 MG IVPB (22:04)
[2023-10-27] MEDS: MORPHine 10 MG/ML VIAL 4 MG IVP (22:49)
[2023-10-27] MEDS: ACETAMINOPHEN 1,000 MG/100 ML BTL 400 MG IVPB (22:50)
--- NOTE | 2023-10-28 | DI.RAD_ITS ---
Exam(s) XR ABDOMEN FLAT UPRIGHT EXAM: 2D digital imaging was performed. CLINICAL HISTORY: abd pain. COMPARISON: CT CT ABDOMEN PELVIS WO from 10/27/2023 TECHNIQUE: Supine and uprightSupine and Lateral views of the abdomen were performed. FINDINGS: BOWEL GAS PATTERN: Gas is seen throughout the colon which is not significantly distended. Gas also s een scattered in nondilated loops of small bowel. No free air. OSSEOUS STRUCTURES: Normal for age. Visualized portions of chest: Unremarkable. IMPRESSION: Nonobstructive bowel gas pattern. No free air. DATA REPOSITORY: RADIATION DOSE DELIVERED:
[2023-10-28 03:41] VITALS: BP 120/60; PULSE 68; RESP 18; TEMP 36.8; O2SAT 96
[2023-10-28] MEDS: Levothyroxine 25 MCG TAB PO (05:18)
[2023-10-28] MEDS: ACETAMINOPHEN 1,000 MG/100 ML BTL 400 MG IVPB (05:33)
[2023-10-28 07:26] LABS: Abs Immature Grans 0.13 10^3/uL (0.0-0.06); Absolute Basophil Count 0.05 10^3/uL (0.0-0.2); Absolute Eosinophil Count 0.15 10^3/uL (0.0-0.7); Absolute Lymphocyte Count 1.41 10^3/uL (1.2-3.4); Absolute Monocyte Count 1.18 10^3/uL (0.1-0.8); Absolute Neutrophil Count 7.64 10^3/uL (1.2-6.7); Basophils % 0.5 %; Eosinophils % 1.4 %; HGB 9.5 g/dL (11.2-15.7); Immature Grans % 1.2 %; Lymphocytes % 13.4 %; MCH 30.9 pg (27.0-33.0); MCHC 32.8 % (32.0-36.0); MCV 95 fL (80-95); MPV 9.4 fL (8.0-11.0); Monocytes % 11.2 %; Neutrophils % 72.3 %; Platelet Count 253 10^3/uL (130-400); RBC 3.07 10^6/uL (3.93-5.22); RDW 15.2 % (11.7-14.6); RDW-SD 53.1 fL; WBC 10.56 10^3/uL (4.4-10.8)
[2023-10-28 07:31] VITALS: BP 119/59; PULSE 74; RESP 20; TEMP 37; O2SAT 92
[2023-10-28] MEDS: CIPROFLOXACIN 400 MG/200 ML BAG 200 MG IVPB ×2 (07:48→20:01)
[2023-10-28] MEDS: Normal Saline Flush 10 ML SYR IVP ×2 (08:08→20:00)
[2023-10-28] MEDS: MORPHine 2 MG/ML SYR IVP ×2 (08:09→20:08)
[2023-10-28] MEDS: Oxybutynin 5 MG TAB PO ×2 (08:35→20:00)
[2023-10-28] MEDS: Cyanocobalamin 500 MCG TAB 1000 MCG PO (08:35)
[2023-10-28] MEDS: Psyllium PKT 1 EACH PO (08:35)
[2023-10-28] MEDS: Polyethylene Glycol 3350 17 GM PACKET PO (08:35)
[2023-10-28] MEDS: Cholecalciferol (Vitamin D3) 1,000 UNIT TAB 2000 UNITS PO (08:36)
[2023-10-28] MEDS: Spironolactone 25 MG TAB PO ×2 (08:36→19:59)
[2023-10-28] MEDS: Magnesium Oxide 400 MG TAB PO (08:36)
[2023-10-28] MEDS: Vitamin E 400 UNITS CAP PO (08:37)
[2023-10-28] MEDS: Docusate Sodium 100 MG CAP 500 MG PO (08:37)
[2023-10-28] MEDS: Senna TAB 1 TAB PO (08:37)
[2023-10-28] MEDS: Potassium Chloride 20 MEQ TABCR PO (08:37)
[2023-10-28] MEDS: Folic Acid 1 MG TAB PO (08:37)
[2023-10-28] MEDS: Metoprolol CR 50 MG TABCR PO (08:37)
[2023-10-28 08:40] LABS: ALT 31 U/L (14-59); AST 17 U/L (15-37); Albumin 3.6 g/dL (3.4-5.0); Alkaline Phosphatase 57 U/L (46-116); Anion Gap 10.5 mmol/L (3-11); BUN 12 mg/dL (7-18); CO2 21.5 mmol/L (21.0-32.0); CREATININE 0.9 mg/dL (0.55-1.02); Calcium 9.4 mg/dL (8.5-10.1); Chloride 95 mmol/L (98-107); Estimated GFR 65.84 (mL/min/1.73m2); Glucose 124 mg/dL (74-106); Potassium 4.5 mmol/L (3.5-5.1); Sodium 127 mmol/L (136-145)
[2023-10-28] MEDS: Fluticasone NASAL SPRAY 16 GM BTL NS (08:49)
--- NOTE | 2023-10-28 09:09 | INITIAL_ITS ---
Date of service: 10/28/23 Time of Service: 09:09 Care Management Initial Assmt Initial Assessment Reason for Hospitalization: abdominal pain Functional Status/Living Situation Patient Presentation: Roseann was sitting up in bed visiting with her daughter Elly when CM met with her. She was pleasant in manner and engaged easily with CM. Roseann continues to have abdominal discomfort but was able to tolerate a clear liquid supper while CM met with her. She does not currently receive any services and is independent with her care. Elly lives with Isiah and they both shared that they get along very well and enjoy doing things together. Town of Residence: [place] Resides with: Child (daughter Elly lives with her) Significant Other/Family: Local Employment Status: Retired Instrumental Activities of Daily Living (ADLs): Independent Medications Medication Management: No Issues/Barriers identified Physical Functioning/Mobility Assistive Device: uses a cane or walker as needed Advance Directives Advance Directives: Do you have an Advance Directive: Y 05/11/18 11:08 AD On File at [facility]: Y 01/03/21 15:06 Date Asked 05/07/18 09/04/23 14:42 AD Date Reviewed 09/04/23 09/04/23 14:42 COLST On File at [facility] No 08/12/22 16:42 COLST Date Scanned Code Status Resuscitation Status Full Code Insurance Coverage/Financial Issues Insurance: Medicare BC/BS supplement ACO Member: Yes Care Team Visit Care Team Role Provider Type Eve Londono MD, [place] Primary Care Provider [facility] STAFF Liliana Angeles NP Emergency Provider NURSE PRACTITIONER Sourav Arriaga MD Admit Provider [facility] STAFF PHYSICIAN Attending Provider Discharge Potential Discharge Needs: PCP F/U Appt and Surgical F/U Appt Anticipated Barriers to Discharge: None Identified Patient/Family Education Needs: Review discharge instructions, discuss Ask Me Three Transportation: Private vehicle Plan: Anticipate Roseann will be discharged home with no new services when Medically stable. She will follow up with her community providers and plan of care and transport with family. CM will follow and continue to assess for discharge needs. PFSH All Active Problems (Updated 10/27/23 @ 19:27 by Sourav Arriaga MD) Abdominal pain (Acute) Atypical chest pain (Acute) Elevated troponin I level (Acute) Elevated WBC count (Acute) Impaired glucose metabolism (Acute) History of endometrial cancer (Acute) Combined abdominal and pelvic pain (Acute) Dysuria (Acute) Infection of the breast and nipple (Acute) Yeast dermatitis (Acute) Abdominal discomfort (Acute) Fatigue (Acute) COVID-19 (Acute ~04/01/22) Back pain (Acute) Hypokalemia (Acute) Hypertension (Chronic) Anxiety (Chronic) Left knee pain (Acute) SOB (shortness of breath) (Acute) Vitamin D deficiency (Acute) Hearing loss (Acute) Vaginal mass (Acute ~06/19/18) recurrence of endometrial cancer Colon polyp (Chronic 07/12/02) adenomas polyps Endometrial cancer, grade I (Chronic 07/09/16) hysterectomy planned fro 07/15 at [facility] 07/16/16 S/P HYSTERECTOMY Hyperlipidemia (Chronic 07/31/12) Hypothyroidism (Chronic 07/31/12) Obesity (Chronic 08/12/14) Obstructive sleep apnea syndrome (Chronic 07/30/11) uses CPAP Psoriasis (Chronic) Vitamin B 12 deficiency (Chronic 08/03/14) Medical History Stress Acute UTI 12/10/22-treated at [facility], [place] Phlegm in throat Cough Hyperglycemia (08/19/16) Migraine Migraine Abnormal mammogram of right breast 09/04/15 cat3, 6month f/[place] [facility] Elevated blood sugar level 08/19/16 Abdominal abscess (07/29/16) Acute meniscal injury of right knee (03/13/17) UTI (urinary tract infection) Surgical History History of bilateral ligation of fallopian tubes Status post appendectomy History of bilateral tubal ligation 04/21/82 S/P appendectomy 04/21/82 cystectomy (~1987) uterine Uterine fibroids removed (~1987) Ligation of fallopian tube (~1982) Hysterectomy, Laproscopic (07/16/16) [facility] Bilateral salpingectomy with oophorectomy (07/16/16) [facility] Appendectomy (~1982) Family History Mother , 76 Essential hypertension Heart disease Hyperlipidemia Myocardial infarction Father , 96 Essential hypertension Heart disease Hyperlipidemia Stroke Sister Essential hypertension Heart disease Stroke Brother , 59 Essential hypertension Heart disease Hyperlipidemia Brain cancer Brother Diabetes Essential hypertension Hyperlipidemia Brother Essential hypertension Brother Essential hypertension Hyperlipidemia Maternal Grandfather , 93 Heart disease Paternal Grandfather , 81 Essential hypertension Heart disease Maternal Grandmother , 54 Rheumatoid arthritis Paternal Grandmother , 80 Heart disease Social History Smoking/Tobacco Use Status: Former Tobacco Use Quit Date: 04/21/78 Tobacco: How many years used: 15 Quit status: quit date established Second Hand Exposure: Yes Smoking risk assessment performed?: Yes Alcohol Intake: current Alcohol Intake frequency: holidays/special occasions o nly Drug use: Never Substance use type: does not use Caregiver/Support person: No Household members: children Housing: house Communication Needs: None Do you need help understanding health information?: Never Pets and animals: No Sexually active: No Current gender identity: female What is your relationship status?: How often do you talk on the phone with friends or family?: decline to answer How often do you get together with friends or relatives?: decline to answer How often do you attend scientologist or muslim services?: decline to answer Do you belong to any clubs or organized social groups?: decline to answer Panel score (0-1 are the most socially isolated patients): 0 What type of physical activity do you participate in: weight lifting Seatbelt use: always Drive intox or ride w/intox screw driver operator: No Do you feel safe at home: Yes Do you feel safe in your relationship?: Yes SDOH(Care Management) Screening Will the Patient Participate in the Screening?: Declined to provide
[2023-10-28] MEDS: Lactated Ringers 1,000 ML 100 ML IV (09:26)
[2023-10-28] MEDS: metroNIDAZOLE 500 MG/100 ML BAG 100 MG IVPB ×2 (10:49→18:44)
[2023-10-28 12:12] VITALS: BP 138/67; PULSE 65; RESP 20; TEMP 37.1; O2SAT 95
--- NOTE | 2023-10-28 14:08 | W.PM.PROGNOT ---
Date of Service Date of service: 10/28/23 Time of Service: 14:08 Assessment and Plan Assessment and plan (1) Abdominal pain: Status: Acute Assessment and plan: DDx: Colitis, constipation, diverticulitis, ischemic bowel Continue narcotic analgesics as needed for severe pain otherwise use Tylenol., Obtain surgical consultation, obtain CT of the abdomen pelvis once CT scan is available in the interim we will give more laxatives and an enema and obtain abdominal x-ray. Continue empiric treatment for possible diverticulitis. (Currently on ciprofloxacin and Flagyl) Qualifiers: Abdominal location: lower abdomen, unspecified Qualified Code(s): R10.30 - Lower abdominal pain, unspecified (2) Elevated WBC count: Status: Acute Assessment and plan: see above. Qualifiers: Leukocytosis type: bandemia Qualified Code(s): D72.825 - Bandemia (3) Elevated troponin I level: Status: Acute Assessment and plan: likely type II demand ischemia, negative EKG changes and no improvement w/ NTG. Echocardiogram performed today showed normal left ventricular and right ventricular size and function without significant valvular heart disease and no pulm hypertension (4) History of endometrial cancer: Status: Acute Assessment and plan: continue her endometrial cancer. Subjective Subjective Interval history since last seen: Roseann still has abdominal crampy pains, some nausea but no vomiting. no chest pains. She has not had a BM despite laxatives and stool softeners. she is passing flatus. Exam Narrative Exam Narrative: Roseann is a pleasant elderly lady who is alert and orient x 3 at time she is little bit tearful they will and she is fearful that she does not know what is going on with her abdominal symptoms. Explained to her that we could not get a CT scan of her abdomen pelvis but that we would asked Dr. Pinto from general surgery to weigh in on the workup and treatment of abdominal pain. Will presumptively start her on antibiotics for possible diverticulitis. Also told her we would follow-up with an abdominal x-ray today. Patient states despite taking stool softeners and laxatives she is still not had a bowel movement. I told her that this could just be obstipation Alert and oriented x 3 Abdomen obese soft mild diffuse tenderness with no focalized area of tenderness without rebound tenderness nor involuntary guarding active bowel sounds present Objective Last Vital Signs Temp 37.1 C 10/28/23 12:12 Pulse 65 07/09/24 12:12 Resp 20 10/28/23 12:12 BP 138/67 10/28/23 12:12 Pulse Ox 95 10/28/23 12:12 Laboratory Results - last 24 hr 10/27/23 10/27/23 10/27/23 10:30 10:36 15:35 WBC RBC Hgb Hct MCV MCH MCHC RDW Plt Count MPV Immature Gran % Neutrophils % Lymphocytes % Monocytes % Eosinophils % Basophils % Nucleated RBC % Absolute Neutrophils Absolute Lymphocytes Absolute Monocytes Absolute Eosinophils Absolute Basophils ESR 18 VBG Lactate Sodium Potassium Chloride Carbon Dioxide Anion Gap BUN Creatinine Est GFR (CKD-EPI 2020) Glucose Calcium Total Bilirubin AST ALT Alkaline Phosphatase Troponin I 105 H* C-Reactive Protein NT-Pro-B Natriuret Pep 102 Total Protein Albumin Triglycerides 157 H Total Cholesterol 148 LDL Cholesterol, Calc 76 HDL Cholesterol 41 Procalcitonin TSH 2.66 Add-On Test Request 10/27/23 10/28/23 10/28/23 18:50 06:53 08:15 WBC 10.56 RBC 3.07 L Hgb 9.5 L D Hct 29.0 L MCV 95 MCH 30.9 MCHC 32.8 RDW 15.2 H Plt Count 253 MPV 9.4 Immature Gran % 1.2 Neutrophils % 72.3 Lymphocytes % 13.4 Monocytes % 11.2 Eosinophils % 1.4 Basophils % 0.5 Nucleated RBC % 0.0 Absolute Neutrophils 7.64 H Absolute Lymphocytes 1.41 Absolute Monocytes 1.18 H Absolute Eosinophils 0.15 Absolute Basophils 0.05 ESR VBG Lactate 2.7 H* Sodium 127 L Potassium 4.5 Chloride 95 L Carbon Dioxide 21.5 Anion Gap 10.5 BUN 12 Creatinine 0.9 Est GFR (CKD-EPI 2020) 65.84 Glucose 124 H Calcium 9.4 Total Bilirubin 0.40 AST 17 ALT 31 Alkaline Phosphatase 57 Troponin I 67 H* C-Reactive Protein < 0.50 NT-Pro-B Natriuret Pep 259 Total Protein 7.0 Albumin 3.6 Triglycerides Total Cholesterol LDL Cholesterol, Calc HDL Cholesterol Procalcitonin < 0.1 TSH Add-On Test Request DONE Time Spent with Patient Time Spent with Patient: 35-49 minutes Time was spent: preparing to see the patient(eg.review tests), ordering medications,tests, procedures, referring, communicating with other health palliative care nurse practitioner, indepentently interpreting results, counseling the patient and care coordination
--- NOTE | 2023-10-28 15:01 | PHA.REVIEW2 ---
Pharmacy Admission Review Admission Clinical Review Admission Pharmacy Review: Abdominal pain (Acute) Elevated troponin I level (Acute) Elevated WBC count (Acute) History of endometrial cancer (Acute) aspirin Allergy (Severe, Verified 10/27/23 08:22) HIVES NSAIDS (Non-Steroidal Anti-Inflamma Allergy (Severe, Verified 10/27/23 08:22) HIVES latex Allergy (Intermediate, Verified 10/27/23 08:22) redness enalapril Adverse Reaction (Severe, Verified 10/27/23 08:22) SEVERE LEG PAIN hydrochlorothiazide Adverse Reaction (Mild, Verified 10/27/23 08:22) Other (See Comment) cetirizine [From Zyrtec] Adverse Reaction (Verified 10/27/23 08:22) Knee pain lisinopril Adverse Reaction (Verified 10/27/23 08:22) cough bactrim Allergy (Severe, Uncoded 10/27/23 08:22) Red face, throat felt swollen sulfamethoxazole-trimethoprim 800-160 mg Allergy (Uncoded 10/27/23 08:22) Face gets blotchy Resuscitation Status Full Code Height 4 ft 11 in Weight 115.5 kg Comments Comments/Follow Ups: Watch BP, SCr, labs, for culture results and for med changes (possible renal dose adjustments) Pharmacy Admission Review Renal Dosing Renal Dosing: BUN 12 mg/dL (7-18) 10/28/23 08:15 Creatinine 0.9 mg/dL (0.55-1.02) 10/28/23 08:15 Medications needing adjustments: Reviewed (Crcl ~60 mL/min current meds okay) Anticoagulation Anticoagulation: Hgb 9.5 g/dL (11.2-15.7) L D 10/28/23 06:53 Hct 29.0 % (36.0-46.0) L 10/28/23 06:53 Plt Count 253 10^3/uL (130-400) 10/28/23 06:53 Creatinine 0.9 mg/dL (0.55-1.02) 10/28/23 08:15 DVT Prophylaxis: Intervened (no chemical or physical VTE prophylaxis ordered, will mention to provider) Opiate Usage Evaluate Pain Scale/Pains Meds: Intervened (currently two morphine orders from two different providers, will mention to provider) Scheduled Bowel Reg ordered if on Opiates?: Yes Relevant Labs Relevant Labs: ESR 18 mm/hr (0-30) 10/27/23 10:30 Sodium 127 mmol/L (136-145) L 10/28/23 08:15 Potassium 4.5 mmol/L (3.5-5.1) 10/28/23 08:15 Chloride 95 mmol/L (98-107) L 10/28/23 08:15 Magnesium 2.1 mg/dL (1.8-2.4) 10/27/23 10:36 C-Reactive Protein < 0.50 mg/dL (<or=0.5) 10/27/23 18:50 Electrolytes, C-Reactive P, ESR: Reviewed DM Control DM Control: Glucose 124 mg/dL (74-106) H 10/28/23 08:15 DM Control: Reviewed (A1c was 6.1 on 08/21/23 ) Cardiac Review Cardiac Review: Troponin I 67 ng/L (< or =60) H* 10/27/23 18:50 NT-Pro-B Natriuret Pep 259 pg/mL (<300) 10/27/23 18:50 BP, HR, EF%: Reviewed (BP has been up and down, HR has mostly been within normal limits) QTc Review QTc: Reviewed (QTc 418 on ekg yesterday evening) IV to PO Switch IV Medications: Reviewed Home Meds Home Med List reviewed: Reviewed Relevent Home Meds Not ordered & why?: most of the topicals (PRN or from old/short term rxs) Current Meds Current Medication Order Review: Intervened (discontinued duplicate med orders and adjusted cipro timing per medical records supervisor time policy) Pharmacy Antibiotic Review Relevant Labs: Relevant Labs 10/27/23 18:50 C-Reactive Protein < 0.50 Procalcitonin < 0.1 Pharmacy Antibiotic Activity: C/S review and Reviewed, no change Comments: Urine culture pending. Cipro and metronidazole continue (day 2 starts this evening) Comments Comments/Follow Ups: Watch BP, SCr, labs, for culture results and for med changes (possible renal dose adjustments)
[2023-10-28 15:06] VITALS: BP 166/68; PULSE 74; RESP 19; TEMP 37.7; O2SAT 95
[2023-10-28] MEDS: MORPHine 10 MG/ML VIAL 4 MG IVP (15:14)
--- NOTE | 2023-10-28 15:23 | DI.US_ITS ---
APPROVED REPORT EXAM: Comprehensive 2D, Doppler, and color-flow Echocardiogram Patient Location: In-Patient Room/Bed: 208 Associate Director Regulatory Affairs: Lucia Norman RDCS (AE) Indications: Elevated troponin, Evaluate LV and RV function Other Information Study Quality: Fair. Technically limited study due to body habitus, inability to position patient exa m done supine.. Conclusion Technically difficult study Left ventricle is normal in size wall thickness and overall systolic function. EF is 57%. No segmen lorri wall motion abnormalities are identified Normal right ventricular size Both atria are normal in size Aortic valve sclerosis without stenosis or regurgitation Mitral annular calcification. Mild mitral regurgitation Estimated right ventricular systolic pressure is 31 mmHg Wall motion Left Ventricle Technically limited parasternal imaging. The overall left ventricular systolic function appears claudette l. Regional wall motion is not well visualized but grossly normal. LVEF is 57%. Right Ventricle The right ventricle is normal size. Atria The left atrium size is normal. The right atrium size is normal. Aortic Valve The Aortic valve is sclerotic. Number of aortic valve leaflets could not be assessed. There is no aor tic valvular stenosis. No aortic regurgitation is present. Mitral Valve Mild to Moderate mitral annular calcification. No evidence of mitral valve stenosis. Mild mitral reg urgitation. Tricuspid Valve The tricuspid valve is normal in structure. There is no tricuspid valve stenosis. Trace to mild tricu spid regurgitation. The RVSP is 31.4 mmHg. Pulmonic Valve Pulmonic valve is not well visualized. There is no pulmonic valvular stenosis. Trace pulmonic regurgi tation. Great Vessels The aortic root is normal in size. Ascending aorta is not well visualized. Aortic arch is not well vi sualized. The IVC collapses <50% with inspiration. Pericardium Technically limited subcostal imaging. Patient has active abdominal pain. 2D Dimensions Ao Root d 2.64 cm F: 2.7 - 3.3 Auto EF LV EDV A4C 81.6 mL LV EDV A2C 82.5 mL LV EDV BP 82.8 mL LV ESV A4C 36.7 mL LV ESV A2C 35.0 mL LV ESV BP 35.9 mL LVEF(%) A4C 55.0 % LVEF(%) A2C 57.6 % LVEF(%) BP 56.7 % LV SV A4C 44.9 ml LV SV A2C 47.5 ml LV SV BP 46.9 ml LV CO A4C 3.3 L/min LV CO A2C 3.5 L/min LV CO BP 3.4 L/min HR A4C 74.38 BPM HR A2C 73.74 BPM LV EDV Index (BP) LA Volume LA Length A4C 4.3 cm LA Length A2C 4.8 cm LA Area A4C s 13.12 cm2 LA Area A2C s 14.16 cm2 LA Vol A4C A-L 34.37 mL LA Vol A2C A-L 35.24 mL LA Vol Biplane A-L 37.1 mL LA Vol/BSA A4C A-L LA Vol/BSA A2C A-L LA Vol/BSA BP A-L 18.4 mL/m2 LA Vol A4C MOD 32.2 mL LA Vol A2C MOD 32.2 mL LA Vol BP MOD 33.9 mL LV Diastology MV E' medial 0.081 (>0.07 m/s) MV E Vmax 1.36 (0.4-1.3 m/s) MV E/E' MED 16.76 (<14) MV A Vmax 1.25 (0.4-1.3 m/s) E/A Ratio 1.1 Aortic Valve AoV Vmax 1.42 m/s LVOT Vmax 1.17 m/s AoV Peak Grad 8.0 mmHg LVOT Peak Grad 5.5 mmHg AoV Area (Vmax) 2.64 cm2 LVOT VTI 0.256 m AoV VTI 0.319 m LVOT Mean Grad 3.4 mmHg AoV Mean Hi. 1.06 m/s LVOT SV 81.82 mL AoV Mean Grad 5.0 mmHg LVOT Diam s 2.00 cm AoV Area (VTI) 2.57 cm2 Velocity Ratio 0.82 Mitral Valve MV DT 204 (160-240 msec) MV Vmax TIPS 1.47 m/s MV Mean Grad 3.2 (<2mmHg) MV VTI 0.435 m Pulmonary Valve RVOT Vmax 0.74 m/s RVOT Peak Gr. 2.2 mmHg RVOT VTI 0.165 m RVOT Mean Gr. 1.4 mmHg Tricuspid Valve RA Pressure 8.00 mmHg TR Vmax 2.42 m/s TV S' 0.14 m/s TR Peak Grad 23.4 mmHg RVSP (TR) 31.4 mmHg
[2023-10-28 16:02] LABS: Lactate 1.9 mmol/L (0.6-1.4)
[2023-10-28 16:21] LABS: Lipase 33 U/L (16-77)
[2023-10-28] MEDS: Mineral Oil-Enema 133 ML BTL PR (16:49)
[2023-10-28] MEDS: Magnesium Citrate 300 ML BTL 150 ML PO (16:50)
[2023-10-28] MEDS: Methylnaltrexone 12 MG/0.6 ML VIAL SC (16:50)
--- NOTE | 2023-10-28 17:47 | W.SURGCON ---
Date of service: 10/28/23 Time of Service: 17:47 Assessment and Plan Assessment and plan (1) Abdominal pain: Status: Acute Assessment and plan: I agree that diverticulitis is certainly within the differential, partial small bowel obstruction would also be a likely diagnosis given the history and the exam today. Her CT scan is quite limited, but there is no obvious distention of the stomach or the proximal small bowel at least when that study was obtained. For now, I agree with simple bowel rest, and continuation of antibiotics. I do think there is benefit to getting a CT scan whenever it is available. Qualifiers: Abdominal location: lower abdomen, unspecified Qualified Code(s): R10.30 - Lower abdominal pain, unspecified History of Present Illness History of Present Illness Chief Complaint: Abdominal pain Narrative: Roseann is 78 years old. Yesterday morning, she noticed the acute onset of lower abdominal and suprapubic pain. It came on just a little bit after her normal regular bowel movement. she described it as sharp with some waxing and waning characteristic to it. She had some associated nausea, and came to the emergency department. Vital signs in the emergency department were reassuring, but she did have a leukocytosis around 14,000, and some mild elevation of her troponin. She was sent for CT scan, but because of equipment malfunction, adequate images were not completely obtained. she was admitted to the hospital and started on ciprofloxacin as well as metronidazole for presumed diagnosis of diverticulitis. I am consulted for my opinion regarding the abdominal pain. By way of some history, she is undergone multiple pelvic operations for uterine fibroids, and what she describes as ultimately a diagnosis of uterine cancer. In addition to hysterectomy, she is undergone a few other resections by way of a transvaginal approach for which she describes as recurrent disease at the vaginal cuff. She reports a history of an incidental appendectomy during the time of tubal ligation. She tells me she is also been treated with pelvic radiation. Currently, she feels okay, but she does say that the pain tends to come and go mostly in the suprapubic region. She denies any nausea currently, but also does not have much appetite. She has an allergy to aspirin. Review of Systems Constitutional Constitutional: Denies fever(s), Reports poor appetite and Denies weight loss Eyes Eyes: Reports system reviewed and no additional complaints, except as documented ENT Ears, Nose, Mouth, and Throat: Reports system reviewed and no additional complaints, except as documented Cardiovascular Cardiovascular: Reports system reviewed and no additional complaints, except as documented Respiratory Respiratory: Denies chest congestion and Denies cough Gastrointestinal Gastrointestinal: Reports abdominal pain, Reports constipation and Denies vomiting Genitourinary Genitourinary: Denies difficulty voiding and Denies vaginal discharge Musculoskeletal Musculoskeletal: Reports system reviewed and no additional complaints, except as documented Neurologic Neurologic: Reports system reviewed and no additional complaints, except as documented Psychiatric Psychiatric: Reports system reviewed and no additional complaints, except as documented Hematologic/Lymphatic Hematologic/Lymphatic: Denies easy bleeding and Denies easy bruising PFSH All Active Problems Abdominal pain (Acute) Atypical chest pain (Acute) Elevated troponin I level (Acute) Elevated WBC count (Acute) Impaired glucose metabolism (Acute) History of endometrial cancer (Acute) Combined abdominal and pelvic pain (Acute) Dysuria (Acute) Infection of the breast and nipple (Acute) Yeast dermatitis (Acute) Abdominal discomfort (Acute) Fatigue (Acute) COVID-19 (Acute ~04/01/22) Back pain (Acute) Hypokalemia (Acute) Hypertension (Chronic) Anxiety (Chronic) Left knee pain (Acute) SOB (shortness of breath) (Acute) Vitamin D deficiency (Acute) Hearing loss (Acute) Vaginal mass (Acute ~06/19/18) recurrence of endometrial cancer Colon polyp (Chronic 07/12/02) adenomas polyps Endometrial cancer, grade I (Chronic 07/09/16) hysterectomy planned fro 07/15 at [facility] 07/16/16 S/P HYSTERECTOMY Hyperlipidemia (Chronic 07/31/12) Hypothyroidism (Chronic 07/31/12) Obesity (Chronic 08/12/14) Obstructive sleep apnea syndrome (Chronic 07/30/11) uses CPAP Psoriasis (Chronic) Vitamin B 12 deficiency (Chronic 08/03/14) Medical History Stress Acute UTI 12/10/22-treated at [facility], [place] Phlegm in throat Cough Hyperglycemia (08/19/16) Migraine Migraine Abnormal mammogram of right breast 09/04/15 cat3, 6month f/u scheduled at [facility] [place] Elevated blood sugar level 08/19/16 Abdominal abscess (07/29/16) Acute meniscal injury of right knee (03/13/17) UTI (urinary tract infection) Surgical History History of bilateral ligation of fallopian tubes Status post appendectomy History of bilateral tubal ligation 04/21/82 S/P appendectomy 04/21/82 cystectomy (~1987) uterine Uterine fibroids removed (~1987) Ligation of fallopian tube (~1982) Hysterectomy, Laproscopic (07/16/16) [facility] Bilateral salpingectomy with oophorectomy (07/16/16) [facility] Appendectomy (~1982) Family History Mother , 76 Essential hypertension Heart disease Hyperlipidemia Myocardial infarction Father , 96 Essential hypertension Heart disease Hyperlipidemia Stroke Sister Essential hypertension Heart disease Stroke Brother , 59 Essential hypertension Heart disease Hyperlipidemia Brain cancer Brother Diabetes Essential hypertension Hyperlipidemia Brother Essential hypertension Brother Essential hypertension Hyperlipidemia Maternal Grandfather , 93 Heart disease Paternal Grandfather , 81 Essential hypertension Heart disease Maternal Grandmother , 54 Rheumatoid arthritis Paternal Grandmother , 80 Heart disease Social History Smoking/Tobacco Use Status: Former Tobacco Use Quit Date: 04/21/78 Tobacco: How many years used: 15 Quit status: quit date established Second Hand Exposure: Yes Smoking risk assessment performed?: Yes Alcohol Intake: current Alcohol Intake frequency: holidays/special occasions only Drug use: Never Substance use type: does not use Caregiver/Support person: No Household members: children Housing: house Communication Needs: None Do you need help understanding health information?: Never Pets and animals: No Sexually active: No Current gender identity: female What is your relationship status?: How often do you talk on the phone with friends or family?: decline to answer How often do you get together with friends or relatives?: decline to answer How often do you attend jainism or jainism services?: decline to answer Do you belong to any clubs or organized social groups?: decline to answer Panel score (0-1 are the most socially isolated patients): 0 What type of physical activity do you participate in: weight lifting Seatbelt use: always 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 Do you feel safe at home: Yes Do you feel safe in your relationship?: Yes Exam Const General: cooperative and comfortable Nutritional Appearance: overweight Orientation: alert, awake and oriented x3 HENMT Head: normal to inspection Eyes General: appearance normal, both eyes and all related structures Resp Effort & Inspection: normal respiratory effort Auscultation: clear to auscultation bilaterally GI Inspection: distended Palpation: soft, no guarding and nontender Percussion: tympanic to percussion Auscultation: abnormal bowel sounds Results Last Vital Signs Temp 99.9 F H 10/28/23 15:06 Pulse 74 10/28/23 15:06 Resp 19 10/28/23 15:06 BP 166/68 H 10/28/23 15:06 Pulse Ox 95 10/28/23 15:06 Labs 10/28/23 06:53 10/28/23 08:15 Labs: Laboratory Results - last 24 hr 10/27/23 10/27/23 10/28/23 10:30 18:50 06:53 WBC 10.56 RBC 3.07 L Hgb 9.5 L D Hct 29.0 L MCV 95 MCH 30.9 MCHC 32.8 RDW 15.2 H Plt Count 253 MPV 9.4 Immature Gran % 1.2 Neutrophils % 72.3 Lymphocytes % 13.4 Monocytes % 11.2 Eosinophils % 1.4 Basophils % 0.5 Nucleated RBC % 0.0 Absolute Neutrophils 7.64 H Absolute Lymphocytes 1.41 Absolute Monocytes 1.18 H Absolute Eosinophils 0.15 Absolute Basophils 0.05 ESR 18 VBG Lactate 2.7 H* Sodium Potassium Chloride Carbon Dioxide Anion Gap BUN Creatinine Est GFR (CKD-EPI 2020) Glucose Calcium Total Bilirubin AST ALT Alkaline Phosphatase Troponin I 67 H* C-Reactive Protein < 0.50 NT-Pro-B Natriuret Pep 259 Total Protein Albumin Lipase Procalcitonin < 0.1 Add-On Test Request DONE 10/28/23 10/28/23 08:15 15:58 WBC RBC Hgb Hct MCV MCH MCHC RDW Plt Count MPV Immature Gran % Neutrophils % Lymphocytes % Monocytes % Eosinophils % Basophils % Nucleated RBC % Absolute Neutrophils Absolute Lymphocytes Absolute Monocytes Absolute Eosinophils Absolute Basophils ESR VBG Lactate 1.9 H Sodium 127 L Potassium 4.5 Chloride 95 L Carbon Dioxide 21.5 Anion Gap 10.5 BUN 12 Creatinine 0.9 Est GFR (CKD-EPI 2020) 65.84 Glucose 124 H Calcium 9.4 Total Bilirubin 0.40 AST 17 ALT 31 Alkaline Phosphatase 57 Troponin I C-Reactive Protein NT-Pro-B Natriuret Pep Total Protein 7.0 Albumin 3.6 Lipase 33 Procalcitonin Add-On Test Request Imaging Abdomen CT scan report/results: report reviewed and image reviewed CT scan - pelvis: report reviewed and image reviewed
[2023-10-28] MEDS: Losartan 50 MG TAB 100 MG PO (19:58)
[2023-10-28] MEDS: amLODIPine 10 MG TAB PO (19:58)
[2023-10-28] MEDS: Atorvastatin 10 MG TAB PO (20:00)
[2023-10-28 20:02] VITALS: BP 135/55; PULSE 84; RESP 18; TEMP 37.6; O2SAT 98
[2023-10-28] MEDS: Ondansetron 4 MG/2 ML VIAL IVP (20:12)
[2023-10-28 23:21] VITALS: BP 114/54; PULSE 79; RESP 19; TEMP 36.9; O2SAT 94
[2023-10-29] MEDS: Lactated Ringers 1,000 ML 100 ML IV (00:40)
[2023-10-29 03:13] VITALS: BP 102/51; PULSE 79; RESP 19; TEMP 37.1; O2SAT 93
[2023-10-29] MEDS: metroNIDAZOLE 500 MG/100 ML BAG 100 MG IVPB ×2 (03:50→11:15)
[2023-10-29] MEDS: Levothyroxine 25 MCG TAB PO (05:57)
[2023-10-29 07:07] LABS: Abs Immature Grans 0.08 10^3/uL (0.0-0.06); Absolute Basophil Count 0.04 10^3/uL (0.0-0.2); Absolute Monocyte Count 1.06 10^3/uL (0.1-0.8); Absolute Neutrophil Count 7.87 10^3/uL (1.2-6.7); Basophils % 0.4 %; HCT 29.7 % (36.0-46.0); HGB 9.8 g/dL (11.2-15.7); Immature Grans % 0.8 %; Lymphocytes % 12.4 %; MCH 30.5 pg (27.0-33.0); MCV 93 fL (80-95); MPV 9.5 fL (8.0-11.0); Monocytes % 10.1 %; Neutrophils % 75.3 %; Platelet Count 264 10^3/uL (130-400); RBC 3.21 10^6/uL (3.93-5.22); RDW-SD 50.8 fL; WBC 10.45 10^3/uL (4.4-10.8)
[2023-10-29 07:19] VITALS: BP 130/65; PULSE 80; RESP 18; TEMP 37.3; O2SAT 96
[2023-10-29 07:30] LABS: ALT 32 U/L (14-59); AST 21 U/L (15-37); Albumin 3.8 g/dL (3.4-5.0); Alkaline Phosphatase 53 U/L (46-116); Anion Gap 10.1 mmol/L (3-11); BUN 7 mg/dL (7-18); Bilirubin, Total 0.64 mg/dL (0.2-1.0); CO2 22.9 mmol/L (21.0-32.0); CREATININE 0.8 mg/dL (0.55-1.02); Calcium 9.5 mg/dL (8.5-10.1); Chloride 98 mmol/L (98-107); Estimated GFR 75.84 (mL/min/1.73m2); Glucose 109 mg/dL (74-106); Potassium 4.2 mmol/L (3.5-5.1); Sodium 131 mmol/L (136-145); Total Protein 7.1 g/dL (6.4-8.2)
[2023-10-29] MEDS: Docusate Sodium 100 MG CAP 500 MG PO (07:42)
[2023-10-29] MEDS: Polyethylene Glycol 3350 17 GM PACKET PO (07:42)
[2023-10-29] MEDS: Psyllium PKT 1 EACH PO (07:42)
[2023-10-29] MEDS: Senna TAB 1 TAB PO (07:43)
[2023-10-29] MEDS: Magnesium Oxide 400 MG TAB PO (07:44)
[2023-10-29] MEDS: Folic Acid 1 MG TAB PO (07:44)
[2023-10-29] MEDS: Oxybutynin 5 MG TAB PO (07:44)
[2023-10-29] MEDS: Cyanocobalamin 500 MCG TAB 1000 MCG PO (07:45)
[2023-10-29] MEDS: Metoprolol CR 50 MG TABCR PO (07:45)
[2023-10-29] MEDS: Vitamin E 400 UNITS CAP PO (07:45)
[2023-10-29] MEDS: Cholecalciferol (Vitamin D3) 1,000 UNIT TAB 2000 UNITS PO (07:46)
[2023-10-29] MEDS: Spironolactone 25 MG TAB PO (07:46)
[2023-10-29] MEDS: Potassium Chloride 20 MEQ TABCR PO (07:46)
[2023-10-29] MEDS: Normal Saline Flush 10 ML SYR IVP (07:56)
[2023-10-29] MEDS: CIPROFLOXACIN 400 MG/200 ML BAG 200 MG IVPB (07:58)
--- NOTE | 2023-10-29 09:34 | DI.CT_ITS ---
Exam(s) CT ABDOMEN PELVIS WO EXAM: CT ABDOMEN PELVIS WO CLINICAL HISTORY: abdominal pain, r/o diverticulitis. TECHNIQUE: Imaging Protocol: Axial computed tomography images with coronal and sagittal reformatted images were created and reviewed. Oral:/ no COMPARISON: CT CT ABDOMEN PELVIS W from 03/21/[address] ABDOMEN PELVIS WO from 10/27/2023 FINDINGS: Lung Bases: No acute findings. Dependent changes. Liver: Normal density. No suspicious mass. Gallbladder and biliary tract: No radiodense calculus or biliary dilation. Pancreas: Normal density. No abnormal calcifications or inflammatory process. Spleen: Normal. Kidneys: Normal size, contour and axis. No radiodense stones. No obstructive uropathy. No suspicious masses seen. There is some stranding around the right kidney and lateral to it. Adrenal glands: No masses seen. Lymph nodes: Within normal limits. Vasculature: Abdominal aorta non-dilated. Atherosclerotic changes. Soft tissues: Unremarkable. Bladder: No wall thickening. No mass or calculi. Bowel: No obstruction or bowel wall thickening. Appendix not visualized. Normal quantity of stool. Portions of colon shows some gaseous distension. Evidence of diverticulitis. Peritoneal cavity: No ascites. No focal collection. No mesenteric inflammatory response. Reproductive organs: Status post hysterectomy. Bones: Unremarkable for age. IMPRESSION: No evidence of diverticulitis. There are normal quantity of stool. The colon shows mild gaseous di stension but no evidence of obstruction or inflammatory change. Stranding lateral to the right kidney. No evidence of stone or hydronephrosis. It could be related to previous obstruction by a stone which has passed. RADIATION DOSE DELIVERED: 1,489.36mGy.cm Total DLP DATA REPOSITORY: All CT scans at this facility are submitted to the National Radiology Data Registry (NRDR) Dose Index Registry (DIR) with the [employer] (ACR). RADIATION OPTIMIZATION: All CT scans at this facility use at least one of these dose optimization te chniques: automated exposure control; mA and/or kV adjustment per patient size (includes targeted exa ms where dose is matched to clinical indication); or iterative reconstruction.
--- NOTE | 2023-10-29 10:39 | PDOC.CMPRO ---
Date of service: 10/29/23 Time of Service: 10:39 Care Management Progress Note Progress Note Text Progress Note Text: Awaiting surgical consult to inform plan of care. CM following. Discharge Potential Discharge Needs: Consult Consult Services Needed: Other (Surgical Consult pending) Anticipated Barriers to Discharge: None Identified Patient/Family Education Needs: Review discharge instructions, discuss Ask Me Three Transportation: Private vehicle Plan: Roseann will be discharged home with no new services when Medically stable. She will follow up with her community providers and plan of care and transport with family. CM will follow and continue to assess for discharge needs. SDOH(Care Management) Screening Will the Patient Participate in the Screening?: Declined to provide
--- NOTE | 2023-10-29 12:10 | PGE_ITS ---
Date of Service Date of service: 10/29/23 Time of Service: 12:10 Assessment and Plan Assessment and plan (1) Abdominal pain: Status: Acute Assessment and plan: Initially presumed to be secondary to either colitis or diverticulitis was given Flagyl and ciprofloxacin however CT scan did not show any diverticulosis no colitis but did show some right perinephric stranding suggestive of having passed a recent kidney stone. I will keep her on ciprofloxacin for 5 more days and discharged home with follow-up with her PCP. She should also consider follow-up with a urologist given her history of kidney stones. Qualifiers: Abdominal location: lower abdomen, unspecified Qualified Code(s): R10.30 - Lower abdominal pain, unspecified (2) Elevated WBC count: Status: Acute Assessment and plan: see above. Qualifiers: Leukocytosis type: bandemia Qualified Code(s): D72.825 - Bandemia (3) Elevated troponin I level: Status: Acute Assessment and plan: . Troponin elevation was mild and felt to be type II demand ischemia. Echocardiogram showed no LV or RV dysfunction. I went over the results of her echocardiogram with the patient. I did advise the patient to get an outpatient stress MPI due to her multiple risk factors for coronary artery disease and due to the transient troponin elevation. She said she will think about it and discuss it with her PCP. (4) History of endometrial cancer: Status: Acute Assessment and plan: Patient will follow-up with her PULMONARY SPECIALIST oncologist and continue her current treatment with megestrol acetate. Subjective Subjective Interval history since last seen: Odalys is feeling markedly better today. Her abdomen is nontender she has no nausea she is actually feeling hungry. She thinks the antibiotics may have worked. I told her that there is no evidence for diverticulitis on her CAT scan however there was some suggestion of perinephric stranding involving the right kidney however no stones or hydronephrosis was seen. Although this is just supposition on my part I am guessing that she passed a kidney stone particularly in light of the fact that her first CAT scan showed that she had a nonobstructing kidney stone on the left which interestingly none was seen on the right however her initial CAT scan was an incomplete study as the CT scanner went down and required maintenance. However what also is interesting as she had an abdominal ultrasound on the same day that did not show any kidney stones and also did not show any hydronephrosis. Nevertheless she has gotten better she has been on metronidazole and ciprofloxacin. Her urine culture grew mixed gram- positive silvia and mixed gram-negative silvia. Mixed gram-positive silvia was 10,000-50,000 colonies of mixed gram-negative was less than 10,000 colonies. Some more than likely this was a contaminant. Her urinalysis really was unremarkable. Roseann continues to have constipation despite being given laxatives and stool softeners yesterday. Will give her another dose of mag citrate 300 mL along with a Dulcolax suppository to try to get her to move her bowels. I have advanced her diet and if she is tolerating her diet she can go home this afternoon. We were going to get a FARM EQUIPMENT OPERATOR consult because of her history of endometrial cancer however given that her abdominal/pelvic pain has resolved and given that the there was perinephric stranding of the right kidney on her repeat CT scan it seems possible to explain her pain due to passing a kidney stone. Furthermore the patient is given this history of passing little black flecks of material in her urine which as an outpatient was worked up and although the stone analysis did not show any stones I wonder if maybe she had been passing some blood in her urine. If she tolerates her diet has a bowel movement this afternoon she can go home with follow-up with her primary care provider and she should see a urologist as an outpatient as well as follow-up with her PULMONARY SPECIALIST oncologist. Exam Narrative Exam Narrative: Roseann sitting up in her chair alert oriented x 3 smiling talking with her family member Abdomen is obese soft and nontender normal bowel sounds no guarding no rebound tenderness. No flank pain or tenderness. Lungs are clear to auscultation Heart is regular rate and rhythm Objective Last Vital Signs Temp 37.3 C 10/29/23 07:19 Pulse 80 10/29/23 07:19 Resp 18 10/29/23 07:19 BP 130/65 10/29/23 07:19 Pulse Ox 96 10/29/23 07:19 Laboratory Results - last 24 hr 10/28/23 10/29/23 15:58 06:20 WBC 10.45 RBC 3.21 L Hgb 9.8 L Hct 29.7 L MCV 93 MCH 30.5 MCHC 33.0 RDW 15.0 H Plt Count 264 MPV 9.5 Immature Gran % 0.8 Neutrophils % 75.3 Lymphocytes % 12.4 Monocytes % 10.1 Eosinophils % 1.0 Basophils % 0.4 Nucleated RBC % 0.0 Absolute Neutrophils 7.87 H Absolute Lymphocytes 1.30 Absolute Monocytes 1.06 H Absolute Eosinophils 0.10 Absolute Basophils 0.04 VBG Lactate 1.9 H Sodium 131 L Potassium 4.2 Chloride 98 Carbon Dioxide 22.9 Anion Gap 10.1 BUN 7 Creatinine 0.8 Est GFR (CKD-EPI 2020) 75.84 Glucose 109 H Calcium 9.5 Total Bilirubin 0.64 AST 21 ALT 32 Alkaline Phosphatase 53 C-Reactive Protein 5.10 H Total Protein 7.1 Albumin 3.8 Lipase 33 Time Spent with Patient Time Spent with Patient: 25-34 minutes Time was spent: preparing to see the patient(eg.review tests), ordering medications,tests, procedures, referring, communicating with other health patient care assistant (Dr. Pinto), indepentently interpreting results, counseling the patient and care coordination
[2023-10-29] MEDS: Bisacodyl 10 MG SUPP PR (12:50)
[2023-10-29] MEDS: Magnesium Citrate 300 ML BTL PO (13:32)
[2023-10-29 14:55] VITALS: BP 131/66; PULSE 90; RESP 18; TEMP 37.6; O2SAT 93
--- NOTE | 2023-10-29 15:29 | DSE_ITS ---
Date of service: 10/29/23 Time of Service: 15:30 DS: Diagnosis Discharge Diagnosis (1) Abdominal pain: Status: Resolved Asessment and Plan: colitis, ischemic bowel, bowel obstruction, and diverticulitis have been ruled out with her subsequent repeat abdominal and pelvic CT. however w/ the nephrolithiasis seen on her initial CT and evidence of perinephric stranding on subsequent CT and the acute onset and abrupt resolution of her abdominal pain, the most plausible explanation is that her pain was probably d/t passage of renal stone and was renal colic. (2) Elevated WBC count: Status: Resolved (3) Elevated troponin I level: Status: Resolved Asessment and Plan: patient never had chest pain or dyspnea and showed no acute ischemic or injury pattern on her EKG and her echocardiogram demonstrated normal LV and RV function w/ no RWMA. However given her multiple risks for development of CAD, it is recommended she have outpatient stress MPI. She indicated she wants to think about this and discuss w/ her PCP. (4) History of endometrial cancer: Status: Acute Asessment and Plan: follow up w/ her [facility] oncologist at [facility]. 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 She also has a history of hyperlipidemia, obesity, hypothyroidism, hypertension, SHAMAR she presented with acute onset of lower abdominal/pelvic pain began 7 AM on the morning of admission associated with nausea no vomiting. She has a history of constipation initially thought this was just constipation took a laxative and thought she had a normal-looking bowel movement with no melena no hematochezia. However the pain persisted and came in waves and presented to emergency department. Evaluation in the ER included serial EKGs and troponins and she had a slight bump in her troponin levels at 95 with repeat level of 84 and peaking at 105 before declining to 67. She had no acute ischemic changes on her EKG. Because of her abdominal pain she underwent abdominal pelvic CT scan on 10/27/[address] scanner malfunctioned during the process and the exam was not completed no IV contrast was able to be used for this study and the limited examination that was completed showed a normal appearance to her pancreas no calcifications or inflammatory process spleen with normal liver showed normal density with no masses. Kidneys were incompletely imaged but there was a nonobstructing 2 mm stone in the left kidney with no masses. Apparently the right kidney was not imaged. Because of the incomplete imaging with the CT scan and ultrasound of her abdomen was performed and this showed mild hepatic steatosis with no evidence of gallbladder abnormality no biliary dilatation. Kidneys are symmetric in size with no obvious renal calculi and no hydronephrosis. Chest x-ray was unremarkable for acute pulmonary pathology. Laboratory studies included CBC that showed a white count elevation of 13,700. Hemoglobin 11.6 g normal platelet count 209 thousand. With IV fluid hydration serial CBCs were monitored her H&H dropped to 9.8 g although she had no obvious bleeding. Urinalysis was checked and found to be slightly cloudy with small amount leukocyte esterase rare bacteria 5-10 white cells per high-powered field and 0-2 hyaline casts and was negative for protein ketones of blood nitrites and bilirubin. Urine culture was sent off and came back positive for mixed gram- positive silvia 10,000-50,000 colonies and less than 10,000 colonies of mixed gram-negative silvia indicative of probable contaminant. Patient never had a fever throughout her hospital course Tmax was 37.7. Vital signs remained stable. Her abdominal pain was treated with IV morphine and she was given antiemetics including ondansetron. Because of the localization of her abdominal pain in the suprapubic and left lower quadrant was presumed she had diverticulitis even though we did not proved on CT scan so she was empirically started on antibiotics. Initially she was started on ceftriaxone presumptively for UTI but Flagyl was then added to the regimen. Surgical consultation was obtained with Dr. Arron Pinto see his note from 10/28/2023 for details. The thinking was that her broad differential diagnosis of her abdominal pain included colitis, diverticulitis, nephrolithiasis with possible passage of a kidney stone, ischemic bowel, constipation possible early bowel obstruction. Therefore she was treated with antibiotics empirically for diverticulitis and we obtain further imaging including an abdominal x-ray on 10/28/2023 that showed a nonobstructive bowel gas pattern no free air and when the CT scan was repaired and we are able to obtain 1 this was done on 10/29/2023 and showed no evidence for diverticulitis appendix was not visualized she did have some gaseous distention of her colon she had no ascites and no mesenteric inflammatory changes. Again the gallbladder and biliary tract was unremarkable. And now the kidneys showed no stones and no obstructive uropathy however there was some stranding noted around the right kidney and lateral to it suspicious for recent passage of a kidney stone given the previously noted nephrolithiasis. On the day of discharge her abdominal pain had resolved and she was feeling much better and had an appetite. Diet was advanced from clear liquids to solid foods she tolerated the advancement in her diet. She was still constipated so she got some more laxatives and Dulcolax suppository and had a moderate to large sized bowel movement and felt markedly better. As the patient had no evidence of bowel obstruction and no evidence of ischemic bowel and no evidence for diverticulitis it was felt that she could be discharged home. The presumptive diagnosis is that she has nephrolithiasis and probably passed a kidney stone. Of interest she has had previous episodes where she has passed these dark soft tissue in her urine that looked black and she has presented to her primary care provider in the past and they did a stone analysis and found no kidney stones. Given that she has had repeat current kidney stones documented on her CT it is suggested that she follow-up with a urologist for further evaluation. We did attempt to collect stones for stone analysis but none were obtained. Furthermore with regard to her transient troponin elevation it was felt to be a type II demand ischemic leak she had no chest pain and no shortness of breath with this hospitalization and no ischemic EKG changes and furthermore she had an echocardiogram that showed normal left ventricular size and thickness and normal left ventricular systolic function with no regional wall motion abnormalities. LVEF is 57% RV is normal in size and function. She has some mild aortic valve sclerosis and mitral annular calcifications but no significant valvular disease. It is recommended the patient that she talk it over with her primary care provider about obtaining a stress MPI as an outpatient as she has multiple risk factors for coronary artery disease however her current presentation was not compatible with ACS. Patient was sent home with a limited course of antibiotics including ciprofloxacin 500 mg twice daily for 5 days and she is doing call if she has any fevers shaking chills nausea vomiting or recurrence of her abdominal pain. Note her PCP Eve Londono, came to the hospital and did see the patient. Home Meds and New Rx's Prescriptions: New ciprofloxacin HCl [Cipro] 500 mg tablet 500 mg PO BID 5 Days Qty: 10 0RF Continued mupirocin 2 % ointment 1 applic topical BID Qty: 30 0RF docusate sodium 250 mg capsule 500 mg PO DAILY cholecalciferol (vitamin D3) 25 mcg (1,000 unit) capsule 50 mcg PO DAILY bisacodyl 5 mg tablet 5 mg PO DAILY PRN fluocinonide 0.05 % cream 1 applic topical BID PRN hydrocortisone [Aquaphor Itch Relief] 1 % ointment 1 applic topical DAILY PRN vitamin E 400 unit tablet 45 mg PO DAILY albuterol sulfate [Ventolin HFA] 90 mcg/actuation HFA aerosol inhaler 2 puff inhalation Q6H PRN (Reason: shortness of breath or wheezing) Qty: 25.5 4RF fexofenadine [Preeti] 180 MG tablet 180 mg PO DAILY Qty: 90 Rx Instructions: 1 TAB DAILY acetaminophen [Tylenol Extra Strength] 500 MG tablet 1 tab PO DAILY PRN CPAP Each 0RF Rx Instructions: sleep apnea cyanocobalamin (vitamin B-12) [Vitamin B-12] 1,000 MCG tablet 1,000 mcg PO DAILY folic acid 400 mcg tablet 0.8 mg PO DAILY fluticasone propionate 50 mcg/actuation spray,suspension 2 spray NS DAILY Qty: 16 3RF magnesium oxide 250 mg magnesium tablet 500 mg PO DAILY hydrocortisone valerate 0.2 % cream 1 applic Topical DAILY PRN PRN (Reason: psoriasis) Qty: 60 3RF Rx Instructions: please dispense the cream instead of the previous ointment rx megestrol 40 mg tablet 40 mg PO QID Qty: 120 12RF levothyroxine [Synthroid] 25 mcg tablet 25 mcg PO DAILY Qty: 90 4RF Rx Instructions: 1 TAB DAILY spironolactone 25 mg tablet 25 mg PO BID Qty: 180 4RF potassium chloride 20 mEq tablet extended release 20 meq PO DAILY Qty: 90 4RF metoprolol succinate 50 mg tablet extended release 24 hr 50 mg PO DAILY Qty: 90 4RF atorvastatin 10 mg tablet 10 mg PO DAILY Qty: 90 4RF losartan 100 mg tablet 100 mg PO DAILY Qty: 90 4RF nystatin-triamcinolone 100,000-0.1 unit/g-% cream 1 applic topical BID PRN (Reason: rash) Qty: 60 1RF nystatin 100,000 unit/gram ointment 1 applic topical BID Qty: 30 1RF amlodipine 10 mg tablet 10 mg PO DAILY Qty: 90 4RF selenium 200 mcg Tablet 200 mcg PO DAILY estradiol [Estrace] 0.01 % (0.1 mg/gram) cream 1 appful vaginal DAILY Qty: 42.5 0RF Rx Instructions: for 14 days Discharge Instructions Stand Alone Forms: Nursing Discharge Form Referrals: Eve Londono MD, [place] [Primary Care Provider] - 11/11/23 9:40 am Activity:: Activity as Tolerated Equipment/Supplies:: No Equipment Needed Diet:: Carb Counting Discharge Orders Discharge Orders: Discharge Order (Routine); Ordered 10/29/23 Ordered By: Sourav Arriaga DS: Summary Time Spent with Patient providing and/or coordinating discharge services: Greater than 30 minutes Status at Discharge Functional status at discharge: independent ambulation Overall status at discharge: patient is back to baseline Mental Status: mental status grossly normal Speech and Movement: speech and movement normal Mood: congruent mood Affect: normal affect Quality:SDOH Health Related Social Needs: No Data to Display Exam Narrative Exam Narrative: Roseann sitting up in her chair alert oriented x 3 smiling talking with her family member Abdomen is obese soft and nontender normal bowel sounds no guarding no rebound tenderness. No flank pain or tenderness. Lungs are clear to auscultation Heart is regular rate and rhythm Psych Mental Status: mental status grossly normal Speech and Movement: speech and movement normal Mood: congruent mood Affect: normal affect DS: Data Vitals/I&O Vitals and I&O: Vital Signs Temperature 37.6 C H 10/29/23 14:55 Temperature Source Skin 10/29/23 14:55 Pulse 90 10/29/23 14:55 Pulse Rhythm Regular 10/29/23 07:50 Pulse 72 10/27/23 14:31 Respiratory Rate 18 10/29/23 14:55 Respiratory Effort Normal 10/29/23 07:50 Respiratory Depth Normal 10/29/23 07:50 Respiratory Pattern Normal 10/29/23 07:50 Blood Pressure 131/66 10/29/23 14:55 Blood Pressure Mean 113 07/08/24 14:30 Blood Pressure Position Sitting 10/27/23 08:34 Pulse Oximetry 93 10/29/23 14:55 Oxygen Delivery Method Room Air 10/29/23 14:55 Oxygen Flow Rate 0 10/29/23 14:55 Pain Level 0 10/29/23 14:55 Intake & Output 10/28/23 10/29/23 10/29/23 23:59 11:59 23:59 Intake Total 300 / 8064.861 0860.334 / 2913.334 325 / 2913.334 Output Total 1450 / 2435 1300 / 1700 400 / 1700 Balance -1150 / -4932.186 3689.334 / 1213.334 -75 / 1213.334 Weight 115.5 kg Intake: IV 300 / 6079.559 3074.334 / 2433.334 325 / 2433.334 Oral 480 / 480 Output: Urine 1150 / 2050 1300 / 1700 400 / 1700 Post Void Residual 300 / 385 Other: Urine Color Yellow Yellow Yellow Urine Appearance Clear Clear Clear Urine Odor Normal None Strain Urine Result Negative-No Stones/Gravel Negative-No Stones/Gravel Negative-No Stones/Gravel Comment urine strained - No stones. pT stated that she voided at 4:30 and at 6:30 this morning in commode. pT stated that she has been using the bathroom. Stool Size Moderate Stool Characteristics Formed Hard Brown Voiding Methods Bedside Commode Bedside Commode Toilet Data Completed and Pending Labs on day of discharge: Labs from last 24 hours 10/29/23 10/28/23 06:20 15:58 WBC 10.45 RBC 3.21 L Hgb 9.8 L Hct 29.7 L MCV 93 MCH 30.5 MCHC 33.0 RDW 15.0 H Plt Count 264 MPV 9.5 Immature Gran % 0.8 Neutrophils % 75.3 Lymphocytes % 12.4 Monocytes % 10.1 Eosinophils % 1.0 Basophils % 0.4 Nucleated RBC % 0.0 Absolute Neutrophils 7.87 H Absolute Lymphocytes 1.30 Absolute Monocytes 1.06 H Absolute Eosinophils 0.10 Absolute Basophils 0.04 VBG Lactate 1.9 H Sodium 131 L Potassium 4.2 Chloride 98 Carbon Dioxide 22.9 Anion Gap 10.1 BUN 7 Creatinine 0.8 Est GFR (CKD-EPI 2020) 75.84 Glucose 109 H Calcium 9.5 Total Bilirubin 0.64 AST 21 ALT 32 Alkaline Phosphatase 53 C-Reactive Protein 5.10 H Total Protein 7.1 Albumin 3.8 Lipase 33 Preliminary micro results at discharge 10/27/23 20:05 Urine Culture - Preliminary Urine - Clean Catch Gram Positive Silvia,Mixed Gram Negative Silvia,Mixed PFSH All Active Problems (Updated 10/29/23 @ 15:40 by Sourav Arriaga MD) Atypical chest pain (Acute) Impaired glucose metabolism (Acute) History of endometrial cancer (Acute) Combined abdominal and pelvic pain (Acute) Dysuria (Acute) Infection of the breast and nipple (Acute) Yeast dermatitis (Acute) Abdominal discomfort (Acute) Fatigue (Acute) COVID-19 (Acute ~04/01/22) Back pain (Acute) Hypokalemia (Acute) Hypertension (Chronic) Anxiety (Chronic) Left knee pain (Acute) SOB (shortness of breath) (Acute) Vitamin D deficiency (Acute) Hearing loss (Acute) Vaginal mass (Acute ~06/19/18) recurrence of endometrial cancer Colon polyp (Chronic 07/12/02) adenomas polyps Endometrial cancer, grade I (Chronic 07/09/16) hysterectomy planned fro 07/15 at [facility] 07/16/16 S/P HYSTERECTOMY Hyperlipidemia (Chronic 07/31/12) Hypothyroidism (Chronic 07/31/12) Obesity (Chronic 08/12/14) Obstructive sleep apnea syndrome (Chronic 07/30/11) uses CPAP Psoriasis (Chronic) Vitamin B 12 deficiency (Chronic 08/03/14) Medical History Stress Acute UTI 12/10/22-treated at [facility], CT Phlegm in throat Cough Hyperglycemia (08/19/16) Migraine Migraine Abnormal mammogram of right breast 09/04/15 cat3, 6month f/u scheduled at [facility] [place] Elevated blood sugar level 08/19/16 Abdominal abscess (07/29/16) Acute meniscal injury of right knee (03/13/17) UTI (urinary tract infection) Surgical History History of bilateral ligation of fallopian tubes Status post appendectomy History of bilateral tubal ligation 04/21/82 S/P appendectomy 04/21/82 cystectomy (~1987) uterine Uterine fibroids removed (~1987) Ligation of fallopian tube (~1982) Hysterectomy, Laproscopic (07/16/16) [facility] Bilateral salpingectomy with oophorectomy (07/16/16) [facility] Appendectomy (~1982) Family History Mother , 76 Essential hypertension Heart disease Hyperlipidemia Myocardial infarction Father , 96 Essential hypertension Heart disease Hyperlipidemia Stroke Sister Essential hypertension Heart disease Stroke Brother , 59 Essential hypertension Heart disease Hyperlipidemia Brain cancer Brother Diabetes Essential hypertension Hyperlipidemia Brother Essential hypertension Brother Essential hypertension Hyperlipidemia Maternal Grandfather , 93 Heart disease Paternal Grandfather , 81 Essential hypertension Heart disease Maternal Grandmother , 54 Rheumatoid arthritis Paternal Grandmother , 80 Heart disease Social History Smoking/Tobacco Use Status: Former Tobacco Use Quit Date: 04/21/78 Tobacco: How many years used: 15 Quit status: quit date established Second Hand Exposure: Yes Smoking risk assessment performed?: Yes Alcohol Intake: current Alcohol Intake frequency: holidays/special occasions only Drug use: Never Substance use type: does not use Caregiver/Support person: No Household members: children Housing: house Communication Needs: None Do you need help understanding health information?: Never Pets and animals: No Sexually active: No Current gender identity: female What is your relationship status?: How often do you talk on the phone with friends or family?: decline to answer How often do you get together with friends or relatives?: decline to answer How often do you attend bahai or mu-ism services?: decline to answer Do you belong to any clubs or organized social groups?: decline to answer Panel score (0-1 are the most socially isolated patients): 0 What type of physical activity do you participate in: weight lifting Seatbelt use: always Drive 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
== END 2023-10-29 15:51 | disposition home or self-care (01) | DRG 694 ==
LOC: ER 14:24 → MS 10-28 08:28
PROVIDERS: Admitting Provider Internal Medicine; Emergency Provider Registered Nurse Emergency; PCP Family Medicine; Visit Provider Internal Medicine
DX: N20.0 Calculus of kidney (principal); I24.89 Other forms of acute ischemic heart disease; R10.30 Lower abdominal pain, unspecified; D72.825 Bandemia; Z85.42 Personal history of malignant neoplasm of other parts of uterus; R74.8 Abnormal levels of other serum enzymes; R11.0 Nausea; K59.00 Constipation, unspecified
CPT/HCPCS: 00123; 36415; 80053; 80061; 83690; 84145; 85652; 93005; 96361; 96375; 99222; 99285; 71045; 74019; 74176; 76700; 81003; 81015; 83605; 83735; 83880; 84443; 84484; 85025; 86140; 87086; 93010; 93306; 99232; 99238; J0131; J0744; J1836; J2212; J2270; J2405

== ENCOUNTER 2024-03-05 02:05 | Outpatient (CLI) | payer MEDICARE, BC, SELFPAY ==
[2024-03-08 13:16] LABS: Hepatitis C Ab w Rflx HCV PCR Negative (Negative)
== END 2024-03-05 02:06 | disposition home or self-care (01) ==
PROVIDERS: PCP Family Medicine; Referring Provider Family Medicine; Visit Provider Family Medicine
DX: Z00.00 Encounter for general adult medical examination without abnormal findings (principal)
CPT/HCPCS: 36415; 86803

== ENCOUNTER 2024-04-27 10:24 | Outpatient (REF) | payer MEDICARE, BC, SELFPAY | END 2024-04-27 10:25 | disposition home or self-care (01) | LOC: LBN 10:24 | PROVIDERS: PCP Family Medicine; Visit Provider Physician Assistant | DX: N39.0 Urinary tract infection, site not specified (principal); R82.89 Other abnormal findings on cytological and histological examination of urine | CPT/HCPCS: 87077; 87086; 87186 ==

== ENCOUNTER 2024-09-07 02:45 | Outpatient (CLI) | payer MEDICARE, BC, SELFPAY ==
[2024-09-07 14:13] LABS: HGB 11.5 g/dL (11.2-15.7); MCH 30.2 pg (27.0-33.0); MCHC 32.9 % (32.0-36.0); MCV 92 fL (80-95); MPV 9.4 fL (8.0-11.0); Platelet Count 305 10^3/uL (130-400); RBC 3.81 10^6/uL (3.93-5.22); RDW 14.5 % (11.7-14.6); RDW-SD 48.8 fL; WBC 12.42 10^3/uL (4.4-10.8)
[2024-09-07 14:40] LABS: Hemoglobin A1C 5.7 % (<5.7)
[2024-09-07 15:59] LABS: ALT 30 U/L (14-59); AST 28 U/L (15-37); Albumin 4.3 g/dL (3.4-5.0); Alkaline Phosphatase 64 U/L (46-116); Anion Gap 17.1 mmol/L (3-11); BUN 20 mg/dL (7-18); Bilirubin, Total 0.5 mg/dL (0.2-1.0); CO2 18.9 mmol/L (21.0-32.0); CREATININE 1.1 mg/dL (0.55-1.02); Calcium 10.4 mg/dL (8.5-10.1); Chloride 98 mmol/L (98-107); Estimated GFR 51.43 (mL/min/1.73m2); Glucose 94 mg/dL (74-106); Potassium 4.1 mmol/L (3.5-5.1); Sodium 134 mmol/L (136-145); TSH (W/Ref FT4) 3.11 uIU/mL (0.36-3.74)
== END 2024-09-07 02:46 | disposition home or self-care (01) ==
LOC: LBO 02:45
PROVIDERS: PCP Family Medicine; Visit Provider Family Medicine
DX: R42 Dizziness and giddiness (principal); E11.9 Type 2 diabetes mellitus without complications; E03.9 Hypothyroidism, unspecified; I10 Essential (primary) hypertension
CPT/HCPCS: 36415; 80053; 85027; 83036; 84443

== ENCOUNTER 2024-10-16 14:43 | Outpatient (REF) | payer MEDICARE, BC, SELFPAY ==
[2024-10-16 18:46] LABS: Bilirubin Color Interference (Negative); Blood Color Interference (Negative); Clarity Sl Cloudy (Clear); Glucose Color Interference mg/dL (Negative); Ketones Color Interference mg/dL (Negative); Leukocyte Esterase Color Interference (Negative); Nitrite Color Interference (Negative); Specific Gravity 1.014 (1.005-1.025); Urobilinogen Color Interference mg/dL (Up to 0.2); WBC >50 HPF (0-5)
[2024-10-16 18:47] LABS: Bacteria Few HPF (Negative); C & S Indicated? Yes; Casts Negative LPF (Negative); Crystals Negative HPF (Negative); Epithelial Cells Rare HPF (Negative); Mucus Negative (Negative); Other Cells Rare Renal (Negative)
== END 2024-10-16 14:44 | disposition home or self-care (01) ==
LOC: LBN 14:43
PROVIDERS: PCP Family Medicine; Visit Provider Physician Assistant
DX: R30.0 Dysuria (principal); B96.89 Other specified bacterial agents as the cause of diseases classified elsewhere
CPT/HCPCS: 87077; 81003; 81015; 87086; 87186

== ENCOUNTER 2024-11-15 18:20 | Inpatient (IN) | payer MEDICARE, BC, SELFPAY ==
[2024-11-15] VITALS (41 sets, daily range): BP systolic 132–171; BP diastolic 58–89; PULSE 81–110; RESP 17–29; TEMP 37.7; O2SAT 81–100
--- NOTE | 2024-11-15 18:00 | RT.EKG_ITS ---
APPROVED REPORT Exam: Resting ECG Reason for Exam: stroke like symptoms Patient Location: E HR:93 bpm ECG Measurements Heart Rate 93 AXIS MT 212 P 34 QRSd 89 QRS -42 QT 359 T 68 QTc 447 Conclusion Sinus rhythm...normal P axis, V-rate 60- 99 Borderline prolonged MT interval...MT >207, V-rate 91-120 Left anterior fascicular block...axis(240,-40), init forces inf ST elevation, consider inferior injury...ST >0.08mV, II III aVF Sinus rhythm, borderline first degree heart block, LAFB, non specific ST abnormality, when compared to prior 10/27/23 MT hads slightly increased. WD
--- NOTE | 2024-11-15 18:15 | DI.RAD_ITS ---
Exam(s) XR PORTABLE CHEST AP EXAM: XR PORTABLE CHEST AP CLINICAL HISTORY: AMS TECHNIQUE: 2D digital imaging was performed. COMPARISON: CR,XR XR CHEST 2V PA LATERAL from 12/31/2020 CR XR PORTABLE CHEST AP from 10/27/2023 FINDINGS: Monitoring leads overlie the chest. LUNGS: Clear. No pleural abnormality seen. HEART: Normal size. AORTA: Normal diameter. BONES: Unremarkable for age. Soft tissues: Unremarkable. IMPRESSION: No acute findings. DATA REPOSITORY: RADIATION DOSE DELIVERED:
--- NOTE | 2024-11-15 18:15 | DI.CT_ITS ---
Exam(s) CT HEAD - STROKE PROTOCOL EXAM: CT HEAD - STROKE PROTOCOL CLINICAL HISTORY: AMS, jumbled speech. TECHNIQUE: Imaging Protocol: Axial computed tomography images with coronal and sagittal reformatted images were created and reviewed COMPARISON: CT CT SINUS WO from 05/06/2019 FINDINGS: Ventricles and Extra axial spaces: Normal in size and morphology for the patient's age. Hemorrhage: None. Cerebral parenchyma: No evidence of acute infarct or mass. Mild atrophy consistent with the patient's age. No significant white matter changes. Midline shift: None. Brainstem/Cerebellum: Normal. Bones: No skull or facial fractures. Hyperostosis frontalis interna. Visualized Paranasal sinuses:Clear. Mastoids: Clear. Soft Tissues: Unremarkable. ORBITS: Unremarkable. PITUITARY: Not enlarged. IMPRESSION: No acute intracranial process. RADIATION DOSE DELIVERED: Total DLP DATA REPOSITORY: All CT scans at this facility are submitted to the National Radiology Data Registry (NRDR) Dose Index Registry (DIR) with the [employer] (A[employer]). RADIATION OPTIMIZATION: All CT scans at this facility use at least one of these dose optimization techniques: automated exposure control; mA and/or kV adjustment per patient size (includes targeted exams where dose is matched to clinical indication); or iterative reconstruction.
[2024-11-15 19:24] LABS: Abs Immature Grans 0.09 10^3/uL (0.0-0.06); HCT 34.2 % (36.0-46.0); HGB 11.3 g/dL (11.2-15.7); Immature Grans % 0.6 %; MCH 30.3 pg (27.0-33.0); MCHC 33.0 % (32.0-36.0); MCV 92 fL (80-95); MPV 9.2 fL (8.0-11.0); Platelet Count 283 10^3/uL (130-400); RBC 3.73 10^6/uL (3.93-5.22); RDW 14.8 % (11.7-14.6); RDW-SD 50.0 fL; WBC 15.14 10^3/uL (4.4-10.8)
[2024-11-15 19:52] LABS: ALT 39 U/L (14-59); AST 83 U/L (15-37); Albumin 4.5 g/dL (3.4-5.0); Alkaline Phosphatase 62 U/L (46-116); Anion Gap 14.8 mmol/L (3-11); BUN 24 mg/dL (7-18); Bilirubin, Total 0.4 mg/dL (0.2-1.0); CO2 20.2 mmol/L (21.0-32.0); Calcium 10.1 mg/dL (8.5-10.1); Chloride 102 mmol/L (98-107); Estimated GFR 42.09 (mL/min/1.73m2); Glucose 108 mg/dL (74-106); Potassium 4.6 mmol/L (3.5-5.1); Sodium 137 mmol/L (136-145); Total Protein 8.0 g/dL (6.4-8.2)
[2024-11-15 20:15] LABS: Troponin I 71 ng/L (<or=51)
--- NOTE | 2024-11-15 20:15 | DI.CT_ITS ---
Exam(s) CT BRAIN NECK CTA EXAM: CT BRAIN NECK CTA CLINICAL HISTORY: AMS, ?stroke. TECHNIQUE: Imaging Protocol: Axial CT angiography was performed with multi- slice acquisition and multi-planar and/or 3D reconstructions. CONTRAST MATERIAL: Intravenous: Omnipaque 350 Contrast volume:75 mL COMPARISON: CT CT HEAD - STROKE PROTOCOL from 11/15/2024 FINDINGS: CTA Neck W: Aortic arch anatomy: The aortic arch anatomy is conventional and there is no significant stenosis at the origin of the great vessels off of the aortic arch. No intimal flap evident. Anterior circulation: Both common carotid arteries ascend with medial course, almost retropharyngeal, and with normal luminal diameters. At the level the carotid bulbs and proximal ICAs there is some mild calcified plaque bilaterally but without significant focal stenosis at these levels nor nor higher up in the internal carotid arteries in the uppermost neck. Posterior circulation: Both vertebral arteries originate in conventional fashion off of the subclavian arteries and there is no obvious stenosis at the origin of the vertebral arteries. Both vertebral arteries exhibit normal luminal diameters within the foramen transversarium. Left vertebral artery is dominant. Both vertebral arteries contribute to the formation of the basilar artery at the skull base. CTA Brain W: Anterior circulation: Both internal carotid arteries are patent in the skull base-carotid canals as well as within the cavernous sinuses. There is some mural calcification in both intra cavernous internal carotid arteries but without tight stenosis evident in these vessels. The supraclinoid aspects of the ICAs are patent. Both A1 segments are patent as are the anterior cerebral arteries and there is no evidence of aneurysm at the level of the anterior communicating artery. Both middle cerebral arteries are patent with no evidence of significant stenosis nor intraluminal thrombus. There also no aneurysms of these vessels. Posterior circulation: The basilar artery ascends in the midline. Distally it gives off patent bilateral superior cerebellar arteries. Above this level the posterior cerebral arteries are fed by posterior communicating arteries on both sides the [id number]. There is no evidence of aneurysm at the tip of the basilar artery nor elsewhere in the [id number]. CT BRAIN: There is hyperostosis frontalis interna in the skull incidentally noted. Visualized paranasal sinuses are clear as are the mastoid air cells on the left side. There is a tiny amount of fluid in the dependent aspect of the right mastoid air cells. There is no evidence of intracranial hemorrhage, mass effect, or shift of midline structures. There are no extra-axial fluid collections. Ventricles are not enlarged or shifted. There are no ring enhancing lesions in the brain and no abnormal meningeal enhancement. IMPRESSION: 1. Patent carotid arteries in the neck. No hemodynamically significant stenosis. The course of both carotid arteries in the neck is medial, almost retropharyngeal. 2. Patent vertebral arteries. 3. Patent intracranial arteries. 4. Posterior cerebral arteries are fed by posterior communicating arteries on both sides of the [id number]. 5. Incidentally noted is a tiny amount of fluid in the most dependent mastoid air cells on the right side. Preliminary virtual Radiology report was reviewed. RADIATION DOSE DELIVERED: 2,360.38mGy.cm Total DLP DATA REPOSITORY: All CT scans at this facility are submitted to the National Radiology Data Registry (NRDR) Dose Index Registry (DIR) with the [employer] ([employer]). RADIATION OPTIMIZATION: All CT scans at this facility use at least one of these dose optimization techniques: automated exposure control; mA and/or kV adjustment per patient size (includes targeted exams where dose is matched to clinical indication); or iterative reconstruction.
[2024-11-15 20:16] LABS: PTT Activated 21.4 sec (20.6-30.2)
[2024-11-15] MEDS: Normal Saline 1,000 ML 1000 ML IV ×2 (20:30→23:00)
[2024-11-15] MEDS: Omnipaque 350 MG/ML 100 ML BTL IJ (20:36)
[2024-11-15] MEDS: Normal Saline Flush 10 ML SYR IVP (20:37)
[2024-11-15] MEDS: Normal Saline - Diluent 50 ML VIAL IJ (20:38)
[2024-11-15 20:42] LABS: Glucose 100 mg/dL (Negative)
[2024-11-15 20:49] LABS: C & S Indicated? Yes; RBC 20-50 HPF (0-2); WBC >50 HPF (0-5)
[2024-11-15 21:03] LABS: Troponin I 72 ng/L (<or=51)
--- NOTE | 2024-11-15 21:18 | DI.VRAD_ITS ---
Addendum created by Adan Lucia MD on 11/15/2024 9:18:32 PM EDT: THIS REPORT CONTAINS FINDINGS THAT MAY BE CRITICAL TO PATIENT CARE. The findings were verbally communicated via telephone conference with Nadia Humphrey at 9:18 PM EDT on 11/15/2024. The findings were acknowledged and understood. Initial report created on 11/15/2024 9:18:12 PM EDT: PROCEDURE INFORMATION: Exam: CTA Head Without And With Contrast, Arteriography Exam date and time: 11/15/2024 8:47 PM Age: 79 years old Clinical indication: Stroke-like symptoms; Altered mental status/memory loss; Additional info: AMS , ? stroke TECHNIQUE: Imaging protocol: Computed tomographic angiography of the head without and with contrast. Exam focused on the arteries. 3D rendering (Not supervised by radiologist): MIP and/or 3D reconstructed images were created by the technologist. Radiation optimization: All CT scans at this facility use at least one of these dose optimization techniques: automated exposure control; mA and/or kV adjustment per patient size (includes targeted exams where dose is matched to clinical indication); or iterative reconstruction. Contrast material: OMNIPAQUE 350; Contrast volume: 70 ml; Contrast route: INTRAVENOUS (IV); Other technique: STROKE PROTOCOL was implemented. COMPARISON: CT HEAD - STROKE PROTOCOL 11/15/2024 6:25 PM FINDINGS: ANTERIOR CIRCULATION: Right internal carotid artery: Intracranial segment is patent with no significant stenosis or occlusion. No aneurysm. Right middle cerebral artery: No occlusion or significant stenosis. No aneurysm. Right anterior cerebral artery: No occlusion or significant stenosis. No aneurysm. Left internal carotid artery: Intracranial segment is patent with no significant stenosis. No aneurysm. Left middle cerebral artery: No occlusion or significant stenosis. No aneurysm. Left anterior cerebral artery: No occlusion or significant stenosis. No aneurysm. POSTERIOR CIRCULATION: Right vertebral artery: No occlusion or significant stenosis. No aneurysm. Left vertebral artery: No occlusion or significant stenosis. No aneurysm. Basilar artery: No occlusion or significant stenosis. No aneurysm. Right posterior cerebral artery: origin of the right posterior cerebral artery is a common developmental variant and there is no occlusion or significant stenosis. No aneurysm. Left posterior cerebral artery: origin of the left posterior cerebral artery is a common developmental variant and there is no occlusion or significant stenosis. No aneurysm. HEAD: Brain: Probable mild underlying microvascular ischemic changes are noted with no intracranial mass, acute transcortical infarction or recent intracranial hemorrhage detected. Cerebral ventricles: No midline shift or hydrocephalus. Bones: No acute fracture. Paranasal sinuses: Grossly clear throughout. Mastoid air cells: Grossly clear bilaterally. Soft tissues: Unremarkable. IMPRESSION: 1. No large vessel stenosis or occlusion detected involving the major branches of the anterior or posterior intracranial circulation. 2. Probable mild underlying microvascular ischemic changes are noted with no intracranial mass, acute transcortical infarction or recent intracranial hemorrhage detected. ASSESSMENT: ASPECTS ([place] Stroke Program Early CT Score) is 10. PROCEDURE INFORMATION: Exam: CTA Neck Without And With Contrast Exam date and time: 11/15/2024 8:47 PM Age: 79 years old Clinical indication: Stroke-like symptoms; Altered mental status/memory loss; Additional info: AMS , ? stroke TECHNIQUE: Imaging protocol: Computed tomographic angiography of the neck without and with contrast. Exam focused on the cervical segments of the vasculature. 3D rendering (Not supervised by radiologist): MIP and/or 3D reconstructed images were created by the technologist. Radiation optimization: All CT scans at this facility use at least one of these dose optimization techniques: automated exposure control; mA and/or kV adjustment per patient size (includes targeted exams where dose is matched to clinical indication); or iterative reconstruction. Contrast material: OMNIPAQUE 350; Contrast volume: 70 ml; Contrast route: INTRAVENOUS (IV); COMPARISON: CT HEAD - STROKE PROTOCOL 11/15/2024 6:25 PM FINDINGS: Right common carotid artery: No stenosis. No dissection or occlusion. Right internal carotid artery: Atherosclerotic calcifications are seen at the right carotid bifurcation and involving the origin of the right internal carotid artery with no evidence of 50% or greater stenosis of the extracranial segment. No dissection or occlusion. Right external carotid artery: No occlusion or stenosis of the origin. Left common carotid artery: No stenosis. No dissection or occlusion. Left internal carotid artery: Atherosclerotic calcifications are seen at the left carotid bifurcation and involving the origin of the left internal carotid artery with no evidence of 50% or greater stenosis of the extracranial segment. No dissection or occlusion. Left external carotid artery: No occlusion or stenosis of the origin. Right vertebral artery: No stenosis. No dissection or occlusion. Left vertebral artery: No stenosis. No dissection or occlusion. Soft tissues: Normal. No significant soft tissue swelling. Bones/joints: No acute fracture. IMPRESSION: No evidence of 50% or greater stenosis involving the cervical segments of the right or left internal carotid arteries by NASCET criteria. REFERENCES: NASCET CRITERIA. The degree of stenosis in the cervical segment of the internal carotid artery is based on NASCET criteria. Normal is no stenosis. Mild is less than 50% stenosis. Moderate is 50-69% stenosis. Severe is 70% to 99% stenosis. Total occlusion is no detectable patent lumen. Dictated and Authenticated by: Adan Lucia MD. Orderin Milagro Zuniga MD
[2024-11-15] MEDS: PIPERACILLIN/TAZO 4.5 GM in Normal Saline 100 ML IVPB (21:30)
--- NOTE | 2024-11-15 21:35 | W.ED.GENAD ---
Discharge Plan Disposition Patient Disposition: Admit to [facility] Condition: Stable Discharge Details Clinical Impression: Altered mental status, Foot laceration, Acute UTI, Elevated lactic acid level, Tetanus toxoid vaccination administered at current visit Primary Care Provider: Eve Londono ED Provider: Nadia Humphrey Home Meds and New Rx's Prescriptions: No Action simethicone [Gas-X Extra Strength] 125 mg capsule 125 mg PO QD-BID PRN megestrol 40 mg tablet 40 mg PO QID Qty: 120 12RF mupirocin 2 % ointment 1 applic topical BID Qty: 30 0RF docusate sodium 250 mg capsule 500 mg PO DAILY cholecalciferol (vitamin D3) 25 mcg (1,000 unit) capsule 50 mcg PO DAILY bisacodyl 5 mg tablet 5 mg PO DAILY PRN fluocinonide 0.05 % cream 1 applic topical BID PRN hydrocortisone [Aquaphor Itch Relief] 1 % ointment 1 applic topical DAILY PRN vitamin E 400 unit tablet 45 mg PO DAILY fexofenadine [Preeti] 180 MG tablet 180 mg PO DAILY Qty: 90 Rx Instructions: 1 TAB DAILY acetaminophen [Tylenol Extra Strength] 500 MG tablet 1 tab PO DAILY PRN (DME) CPAP Res Med Air Sense #10 Each See Rx Instructions .Route .MEDSUPPLY Qty: 1 0RF Rx Instructions: sleep apnea Pressure settin cyanocobalamin (vitamin B-12) [Vitamin B-12] 1,000 MCG tablet 1,000 mcg PO DAILY folic acid 400 mcg tablet 0.8 mg PO DAILY fluticasone propionate 50 mcg/actuation spray,suspension 2 spray NS DAILY Qty: 16 3RF magnesium oxide 250 mg magnesium tablet 500 mg PO DAILY hydrocortisone valerate 0.2 % cream 1 applic Topical DAILY PRN PRN (Reason: psoriasis) Qty: 60 3RF Rx Instructions: please dispense the cream instead of the previous ointment rx levothyroxine [Synthroid] 25 mcg tablet 25 mcg PO DAILY Qty: 90 4RF Rx Instructions: 1 TAB DAILY nystatin-triamcinolone 100,000-0.1 unit/g-% cream 1 applic topical BID PRN (Reason: rash) Qty: 60 1RF potassium chloride 20 mEq tablet extended release 20 meq PO DAILY Qty: 90 4RF spironolactone 25 mg tablet 25 mg PO BID Qty: 180 4RF atorvastatin 10 mg tablet 10 mg PO DAILY Qty: 90 4RF metoprolol succinate 50 mg tablet extended release 24 hr 50 mg PO DAILY Qty: 90 4RF nystatin 100,000 unit/gram powder 1 applic topical BID Qty: 60 4RF selenium 200 mcg Tablet 200 mcg PO DAILY phenazopyridine 200 mg tablet 200 mg PO TID PRN (Reason: urinary pain) Patient Comments: TAKE 1 TABLET BY MOUTH THREE TIMES DAILY NEEDED FOR PAIN FOR 6 DOSES amlodipine 10 mg tablet 10 mg PO HS losartan 100 mg tablet 100 mg PO HS HPI General Date/Time Provider Initiated Documentation: 11/15/24 18:23. HPI Narrative: 79-year-old female with history of hypertension, hyperlipidemia, endometrial cancer presents for evaluation of altered mental status. According to EMS patient's last known well was around noon. It is not clear when she was seen last. Patient's daughter came home from work this evening and found a broken glass on the ground. She found the patient on the floor. She was mumbling incoherently and unable to follow commands. EMS was called. There is normal. Patient is intermittently tachycardic improved. At time of ED arrival patient continues to mumble and has nonsensical speech. She is able to follow some commands. There is a wound on her right foot. When patient's daughter arrived I did receive more information. Patient was last seen well at 8 PM last night prior to bed. She was not seen earlier today. The patient had told her daughter that she dropped the last around noon. Patient does not have a history of stroke or heart attack. There is a family history of stroke. Daughter states there was also an episode of possibly falling off the bed last week which she told primary care about. They have plan to do an outpatient carotid ultrasound. Patient is not on any blood thinners. Unknown last tetanus. Related Data Home Medications ?Medication ?Instructions ?Recorded ?Confirmed acetaminophen 500 mg tablet 1 tab PO DAILY PRN 07/30/12 11/15/24 (Tylenol Extra Strength) fexofenadine 180 mg tablet 180 mg PO DAILY ##90 07/30/12 11/15/24 (Preeti) cyanocobalamin (vitamin B-12) 1,000 mcg PO DAILY 08/06/13 11/15/24 1,000 mcg tablet (Vitamin B-12) selenium 200 mcg tablet 200 mcg PO DAILY 05/05/20 11/15/24 bisacodyl 5 mg tablet 5 mg PO DAILY PRN 11/27/20 11/15/24 cholecalciferol (vitamin D3) 25 50 mcg PO DAILY 11/27/20 11/15/24 mcg (1,000 unit) capsule docusate sodium 250 mg capsule 500 mg PO DAILY 11/27/20 11/15/24 fluocinonide 0.05 % topical cream 1 applic topical BID PRN 11/27/20 11/15/24 folic acid 400 mcg tablet 0.8 mg PO DAILY 11/27/20 11/15/24 hydrocortisone 1 % topical 1 applic topical DAILY PRN 11/27/20 11/15/24 ointment (Aquaphor Itch Relief) fluticasone propionate 50 2 spray NS DAILY #16 grams 02/09/21 11/15/24 mcg/actuation nasal spray,suspension magnesium oxide 500 mg PO DAILY 08/22/22 11/15/24 vitamin E 400 unit tablet 45 mg PO DAILY 08/22/22 11/15/24 hydrocortisone valerate 0.2 % 1 applic topical DAILY PRN PRN 10/09/22 11/15/24 topical cream psoriasis #60 grams megestrol 40 mg tablet 40 mg PO QID #120 tabs 11/11/23 11/15/24 mupirocin 2 % topical ointment 1 applic topical BID #30 grams 11/11/23 11/15/24 simethicone 125 mg capsule (Gas-X 125 mg PO QD-BID PRN 11/11/23 11/15/24 Extra Strength) levothyroxine 25 mcg tablet 25 mcg PO DAILY #90 tab-caps 02/23/24 11/15/24 (Synthroid) nystatin-triamcinolone 100,000 1 applic topical BID PRN rash #60 05/10/24 11/15/24 unit/g-0.1 % topical cream grams potassium chloride 20 mEq 20 meq PO DAILY #90 tabs 05/18/24 11/15/24 tablet,extended release spironolactone 25 mg tablet 25 mg PO BID #180 tabs 05/18/24 11/15/24 atorvastatin 10 mg tablet 10 mg PO DAILY #90 tabs 08/05/24 11/15/24 metoprolol succinate 50 mg 50 mg PO DAILY #90 tabs 08/05/24 11/15/24 tablet,extended release 24 hr nystatin 100,000 unit/gram topical 1 applic topical BID #60 grams 11/04/24 11/15/24 powder amlodipine 10 mg tablet 10 mg PO HS 11/15/24 11/15/24 losartan 100 mg tablet 100 mg PO HS 11/15/24 11/15/24 phenazopyridine 200 mg tablet 200 mg PO TID PRN urinary pain 11/15/24 11/15/24 Previous Rx's ?Medication ?Instructions ?Recorded fluticasone propionate 50 2 spray NS DAILY #16 grams 02/09/21 mcg/actuation nasal spray,suspension hydrocortisone valerate 0.2 % 1 applic topical DAILY PRN PRN 10/09/22 topical cream psoriasis #60 grams megestrol 40 mg tablet 40 mg PO QID #120 tabs 11/11/23 mupirocin 2 % topical ointment 1 applic topical BID #30 grams 11/11/23 levothyroxine 25 mcg tablet 25 mcg PO DAILY #90 tab-caps 02/23/24 (Synthroid) nystatin-triamcinolone 100,000 1 applic topical BID PRN rash #60 05/10/24 unit/g-0.1 % topical cream grams potassium chloride 20 mEq 20 meq PO DAILY #90 tabs 05/18/24 tablet,extended release spironolactone 25 mg tablet 25 mg PO BID #180 tabs 05/18/24 atorvastatin 10 mg tablet 10 mg PO DAILY #90 tabs 08/05/24 metoprolol succinate 50 mg 50 mg PO DAILY #90 tabs 08/05/24 tablet,extended release 24 hr nystatin 100,000 unit/gram topical 1 applic topical BID #60 grams 11/04/24 powder Allergies Allergy/AdvReac Type Severity Reaction Status Date / Time aspirin Allergy Severe HIVES Verified 11/09/24 09:28 NSAIDS (Non-Steroidal Allergy Severe HIVES Verified 11/09/24 09:28 Anti-Inflamma sulfamethoxazole (From Allergy Severe face Verified 11/09/24 09:28 Bactrim) swelling trimethoprim (From Bactrim) Allergy Severe face Verified 11/09/24 09:28 swelling latex Allergy Intermediate redness Verified 11/09/24 09:28 enalapril AdvReac Severe SEVERE LEG Verified 11/09/24 09:28 PAIN clindamycin AdvReac Intermediate Hives Verified 11/09/24 09:28 hydrochlorothiazide AdvReac Mild Other (See Verified 11/09/24 09:28 Comment) cetirizine (From [facility]) AdvReac Knee pain Verified 11/09/24 09:28 lisinopril AdvReac cough Verified 11/09/24 09:28 sulfamethoxazole-trimethoprim Allergy Face gets Uncoded 11/09/24 09:28 800-160 mg blotchy General Stated Complaint: CVA/TIA RAYRAY: 2 Review of Systems Narrative: Remainder review of systems otherwise unobtainable due to patient's altered mental status. Exam Narrative Exam Narrative: General: non-toxic, no respiratory distress, comfortable HEENT: normocephalic, atraumatic, lids and lashes normal, PERRL, EOMI, anicteric sclera, no conjunctival injection, swelling st oral mucosa Card: regular rate and rhythm, S1S2, no murmurs, rubs, or gallops Lungs: good air entry, clear to auscultation bilaterally. no wheezes, rales, rhonchi, or retractions Abd: soft, non-tender, non-distended, normal bowel sounds, no rebound or guarding, no peritoneal signs Musculoskeletal: full range of motion of arms and legs, no tenderness to palpation. no clubbing, cyanosis, or edema Neurologic: Nonsensical speech, intermittently follows commands, is able to move all extremities, upper strength is normal Psych: alert and oriented Skin: 1 cm linear laceration to right lateral foot at base of fifth toe without gaping, no petechiae, no lesions, warm and dry Course Vital Signs Vital signs: Vital Signs Temperature 37.7 C H 11/15/24 18:34 Pulse 96 H 11/15/24 18:34 Respiratory Rate 20 11/15/24 18:34 Blood Pressure 132/84 11/15/24 18:34 Pulse Oximetry 100 11/15/24 18:34 Temperature 37.7 C H 11/15/24 18:34 Temperature Source Temporal Artery Scan 11/15/24 18:34 Pulse 103 H 11/15/24 20:30 Pulse 102 H 11/15/24 20:40 Respiratory Rate 23 11/15/24 20:40 Respiratory Effort Normal 11/15/24 19:21 Respiratory Depth Normal 11/15/24 19:21 Blood Pressure 155/89 H 11/15/24 20:30 Blood Pressure Mean 105 11/15/24 20:30 Pulse Oximetry 99 11/15/24 19:40 Oxygen Delivery Method Room Air 11/15/24 18:34 Oxygen Flow Rate 0 11/15/24 18:34 Lab/Test Results Lab/Test Results: 11/15/24 20:30 Urine - Reflex from Ua Urine Culture - Pending 11/15/24 19:46 Blood Blood Culture - Pending 11/15/24 19:46 Blood Blood Culture - Pending Laboratory Tests Range/Units 11/15/24 11/15/24 11/15/24 19:11 19:46 20:20 WBC (4.4-10.8) 10^3/uL 15.14 H RBC (3.93-5.22) 10^6/uL 3.73 L Hgb (11.2-15.7) g/dL 11.3 Hct (36.0-46.0) % 34.2 L MCV (80-95) fL 92 MCH (27.0-33.0) pg 30.3 MCHC (32.0-36.0) % 33.0 RDW (11.7-14.6) % 14.8 H Plt Count (130-400) 10^3/uL 283 MPV (8.0-11.0) fL 9.2 Immature Gran % % 0.6 Neutrophils % % 81.9 Lymphocytes % % 8.4 Monocytes % % 8.5 Eosinophils % % 0.2 Basophils % % 0.4 Nucleated RBC % (0.0-0.3) % 0.0 Absolute Neutrophils (1.2-6.7) 10^3/uL 12.40 H Absolute Lymphocytes (1.2-3.4) 10^3/uL 1.27 Absolute Monocytes (0.1-0.8) 10^3/uL 1.29 H Absolute Eosinophils (0.0-0.7) 10^3/uL 0.03 Absolute Basophils (0.0-0.2) 10^3/uL 0.06 APTT Cancelled 21.4 VBG Lactate (<or=2.0) mmol/L 2.1 Sodium (136-145) mmol/L 137 Potassium (3.5-5.1) mmol/L 4.6 Chloride (98-107) mmol/L 102 Carbon Dioxide (21.0-32.0) mmol/L 20.2 L Anion Gap (3-11) mmol/L 14.8 H BUN (7-18) mg/dL 24 H Creatinine (0.55-1.02) mg/dL 1.3 H Est GFR (CKD-EPI 2020) (mL/min/1.73m2) 42.09 Glucose (74-106) mg/dL 108 H Calcium (8.5-10.1) mg/dL 10.1 Total Bilirubin (0.2-1.0) mg/dL 0.4 AST (15-37) U/L 83 H ALT (14-59) U/L 39 Alkaline Phosphatase (46-116) U/L 62 Troponin I (<or=51) ng/L 71 H* 72 H* Total Protein (6.4-8.2) g/dL 8.0 Albumin (3.4-5.0) g/dL 4.5 Urine Color (Yellow) Urine Clarity (Clear) Urine pH (5-8) Ur Specific Saxton (1.005-1.025) Urine Protein (Neg-Trace) mg/dL Urine Ketones (Negative) mg/dL Urine Blood (Negative) Urine Nitrite (Negative) Urine Bilirubin (Negative) Urine Urobilinogen (Up to 0.2) mg/dL Ur Leukocyte Esterase (Negative) Urine RBC (0-2) HPF Urine WBC (0-5) HPF Ur Epithelial Cells (Negative) HPF Urine Crystals (Negative) HPF Urine Bacteria (Negative) HPF Urine Casts (Negative) LPF Urine Mucus (Negative) Ur Culture Indicated? Urine Glucose (Negative) mg/dL Range/Units 11/15/24 20:30 WBC (4.4-10.8) 10^3/uL RBC (3.93-5.22) 10^6/uL Hgb (11.2-15.7) g/dL Hct (36.0-46.0) % MCV (80-95) fL MCH (27.0-33.0) pg MCHC (32.0-36.0) % RDW (11.7-14.6) % Plt Count (130-400) 10^3/uL MPV (8.0-11.0) fL Immature Gran % % Neutrophils % % Lymphocytes % % Monocytes % % Eosinophils % % Basophils % % Nucleated RBC % (0.0-0.3) % Absolute Neutrophils (1.2-6.7) 10^3/uL Absolute Lymphocytes (1.2-3.4) 10^3/uL Absolute Monocytes (0.1-0.8) 10^3/uL Absolute Eosinophils (0.0-0.7) 10^3/uL Absolute Basophils (0.0-0.2) 10^3/uL APTT VBG Lactate (<or=2.0) mmol/L Sodium (136-145) mmol/L Potassium (3.5-5.1) mmol/L Chloride (98-107) mmol/L Carbon Dioxide (21.0-32.0) mmol/L Anion Gap (3-11) mmol/L BUN (7-18) mg/dL Creatinine (0.55-1.02) mg/dL Est GFR (CKD-EPI 2020) (mL/min/1.73m2) Glucose (74-106) mg/dL Calcium (8.5-10.1) mg/dL Total Bilirubin (0.2-1.0) mg/dL AST (15-37) U/L ALT (14-59) U/L Alkaline Phosphatase (46-116) U/L Troponin I (<or=51) ng/L Total Protein (6.4-8.2) g/dL Albumin (3.4-5.0) g/dL Urine Color (Yellow) Dark Yellow Urine Clarity (Clear) Clear Urine pH (5-8) 5.0 Ur Specific Saxton (1.005-1.025) 1.015 Urine Protein (Neg-Trace) mg/dL 100 H Urine Ketones (Negative) mg/dL 15 H Urine Blood (Negative) Moderate H Urine Nitrite (Negative) Positive H Urine Bilirubin (Negative) Negative Urine Urobilinogen (Up to 0.2) mg/dL 1.0 H Ur Leukocyte Esterase (Negative) Small H Urine RBC (0-2) HPF 20-50 H Urine WBC (0-5) HPF >50 H Ur Epithelial Cells (Negative) HPF Rare Urine Crystals (Negative) HPF Negative Urine Bacteria (Negative) HPF Packed Urine Casts (Negative) LPF Negative Urine Mucus (Negative) Negative Ur Culture Indicated? Yes Urine Glucose (Negative) mg/dL 100 H Medical Decision Making 79-year-old female with history of hypertension, endometrial cancer, hyperlipidemia presents for acute altered mental status. Last known well was actually at 8 PM yesterday. At time my evaluation she had nonsensical speech and was unable to follow commands consistently. Her strength did appear to be intact. She was seen in the younger upon arrival and sent for stroke CT. This was negative. She was initially mildly tachycardic however heart rate did improve. She has been normotensive. She has had episodes of being able to speak normally however she remains confused and is not sure where she is. She is able to move all of her extremities on repeat examination. Laboratory studies show elevated white count as well as elevated lactic acid. Patient later told daughter that she felt that she had a UTI and was taking some [id number] Azo. She is not currently on any antibiotics. UA was obtained and consistent with infection. Patient received 2 L IV fluid and was started on Zosyn empirically. CTA head and neck were unremarkable. Teleneuro consultation was completed. Patient with 1 cm laceration in the right lateral foot without significant gaping. Wound was washed and Band-Aid placed. Does not require suturing. Tetanus was updated. Case discussed with hospitalist who will admit to their service. [facility] All Active Problems (Updated 11/15/24 @ 22:33 by Nadia Humphrey MD) Tetanus toxoid vaccination administered at current visit (Acute) Elevated lactic acid level (Acute) Acute UTI (Acute) Foot laceration (Acute) Altered mental status (Acute) Balance disorder (Acute) Carotid artery disease (Acute) Dizziness (Acute) Atypical chest pain (Acute) Impaired glucose metabolism (Acute) History of endometrial cancer (Acute) Combined abdominal and pelvic pain (Acute) Dysuria (Acute) Infection of the breast and nipple (Acute) Yeast dermatitis (Acute) Abdominal discomfort (Acute) Fatigue (Acute) COVID-19 (Acute ~04/01/22) Back pain (Acute) Hypokalemia (Acute) Hypertension (Chronic) Anxiety (Chronic) Left knee pain (Acute) SOB (shortness of breath) (Acute) Vitamin D deficiency (Acute) Hearing loss (Acute) Vaginal mass (Acute ~06/19/18) recurrence of endometrial cancer Colon polyp (Chronic 07/12/02) adenomas polyps Endometrial cancer, grade I (Chronic 07/09/16) hysterectomy planned fro 07/15 at [facility] 07/16/16 S/P HYSTERECTOMY Hyperlipidemia (Chronic 07/31/12) Hypothyroidism (Chronic 07/31/12) Obesity (Chronic 08/12/14) Obstructive sleep apnea syndrome (Chronic 07/30/11) uses CPAP Psoriasis (Chronic) Vitamin B 12 deficiency (Chronic 08/03/14) Medical History Stress Acute UTI 12/10/22-treated at [place], [place] Phlegm in throat Cough Hyperglycemia (08/19/16) Migraine Migraine Abnormal mammogram of right breast 09/04/15 cat3, 6month f/u scheduled at [facility] [place] Elevated blood sugar level 08/19/16 Abdominal abscess (07/29/16) Acute meniscal injury of right knee (03/13/17) UTI (urinary tract infection) Surgical History History of bilateral ligation of fallopian tubes Status post appendectomy History of bilateral tubal ligation 04/21/82 S/P appendectomy 04/21/82 cystectomy (~1987) uterine Uterine fibroids removed (~1987) Ligation of fallopian tube (~1982) Hysterectomy, Laproscopic (07/16/16) [facility] Bilateral salpingectomy with oophorectomy (07/16/16) [facility] Appendectomy (~1982) Family History Mother , 76 Essential hypertension Heart disease Hyperlipidemia Myocardial infarction Father , 96 Essential hypertension Heart disease Hyperlipidemia Stroke Sister Essential hypertension Heart disease Stroke Brother , 59 Essential hypertension Heart disease Hyperlipidemia Brain cancer Brother Diabetes Essential hypertension Hyperlipidemia Brother Essential hypertension Brother Essential hypertension Hyperlipidemia Maternal Grandfather , 93 Heart disease Paternal Grandfather , 81 Essential hypertension Heart disease Maternal Grandmother , 54 Rheumatoid arthritis Paternal Grandmother , 80 Heart disease Social History Smoking/Tobacco Use Status: Former Tobacco Use Quit Date: 04/21/78 Tobacco: How many years used: 15 Quit status: quit date established Second Hand Exposure: Yes Smoking risk assessment performed?: Yes Alcohol Intake: current Alcohol Intake frequency: holidays/special occasions only Drug use: Never Substance use type: does not use Caregiver/Support person: No Household members: children Housing: house Communication Needs: None Do you need help understanding health information?: Never Pets and animals: No Sexually active: No Current gender identity: female What is your relationship status?: How often do you talk on the phone with friends or family?: decline to answer How often do you get together with friends or relatives?: decline to answer How often do you attend latter-day or judaism services?: decline to answer Do you belong to any clubs or organized social groups?: decline to answer Panel score (0-1 are the most socially isolated patients): 0 What type of physical activity do you participate in: weight lifting Seatbelt use: always Drive intox or ride w/intox 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
--- NOTE | 2024-11-15 21:46 | TELEP.MEDREC ---
Date of service: 11/15/24 Time of Service: 21:46 Telepharmacy Home Med Rec Allergies Allergies: aspirin Allergy (Severe, Verified 11/09/24 09:28) HIVES NSAIDS (Non-Steroidal Anti-Inflamma Allergy (Severe, Verified 11/09/24 09:28) HIVES sulfamethoxazole (From Bactrim) Allergy (Severe, Verified 11/09/24 09:28) face swelling trimethoprim (From Bactrim) Allergy (Severe, Verified 11/09/24 09:28) face swelling latex Allergy (Intermediate, Verified 11/09/24 09:28) redness enalapril Adverse Reaction (Severe, Verified 11/09/24 09:28) SEVERE LEG PAIN clindamycin Adverse Reaction (Intermediate, Verified 11/09/24 09:28) Hives hydrochlorothiazide Adverse Reaction (Mild, Verified 11/09/24 09:28) Other (See Comment) cetirizine (From Zyrtec) Adverse Reaction (Verified 11/09/24 09:28) Knee pain lisinopril Adverse Reaction (Verified 11/09/24 09:28) cough sulfamethoxazole-trimethoprim 800-160 mg Allergy (Uncoded 11/09/24 09:28) Face gets blotchy Interview Person Interviewed: Patients Elly coffman at patients house with med bottles Quality Quality of Interview/Accuracy of Medication List: Good Sources Sources used to compile medication list: [employer] Medication List, [employer] and Other Changes made to Home Medication List: ADDITIONS: Pyridium 200mg po tid prn DELETIONS: Keflex CHANGES: None Additional Notes Additional Notes: Per patients daughterElly, patient had AM doses of home meds on 11/15/24. Recommended Changes Recommended Changes(reason for recommendation): None Attestation: The home medication list is now updated to the best of my knowledge and is ready to be reconciled by the provider. Please contact the TelePharmacy Medication Reconciliation Pharmacist at for any questions.
[2024-11-15 23:30] LABS: Creatine Kinase 4128 U/L (26-192)
--- NOTE | 2024-11-15 23:30 | W.PM.HP.N ---
Date of service: 11/15/24 Time of Service: 23:30 Assessment and Plan Assessment and plan (1) Acute UTI: Status: Acute Assessment and plan: urine cultures are pending. Reasonable to continue broad spectrum coverage in light of worsening resistance. Zosyn 3.375 grams q 6 (2) Altered mental status: Status: Acute Assessment and plan: The exact etiology is unknown but could be due to UTI versus dehydration versus TIA/CVA. At this point I believe getting antibiotics and IV fluids a chest work to see if she improves as appropriate. Could consider an MRI down the road if she does not improve. (3) Dysphasia: Status: Acute Assessment and plan: As above. I do not believe she will need speech therapy unless this does not improve on its own. We have diagnoses that would contribute to her difficulty with word findings we will pursue these first. (4) Hyperlipidemia: Status: Chronic Assessment and plan: Continue with medical management (5) Hypertension: Status: Chronic Assessment and plan: Continue with medical management (6) Carotid artery disease: Status: Acute Assessment and plan: Stable (7) Hypothyroidism: Status: Chronic Assessment and plan: Will check a TSH for completeness (8) Obstructive sleep apnea syndrome: Status: Chronic Assessment and plan: Patient would benefit from using her CPAP if we can get 1 from home we will see if we can supply 1. DVT prophylaxis with Lovenox History of Present Illness History of Present Illness Chief Complaint: uti/ams Narrative: This is a 79-year-old female who was brought into the ED by her family as she was found down on the floor in her house. It is unknown how long she was on the ground for but she was quite confused and was brought in for evaluation. While she was in the ED patient did have a signs and symptoms consistent with a UTI and her lab work was indicative of this as well. She was given Zosyn in the ED. A CT was done of her head as well as a CT angiogram which did not indicate any strokelike activity. I discussion with the patient she could not give a linear history and unfortunately there was no one else in the room. I have reviewed her lab work as well as her radiographs. Of note, her viral screening panel is still pending including her COVID and flu. Review of Systems Unobtainable due to mental condition PFSH All Active Problems (Updated 11/15/24 @ 23:35 by Dequan Crawford MD) Dysphasia (Acute) Tetanus toxoid vaccination administered at current visit (Acute) Elevated lactic acid level (Acute) Acute UTI (Acute) Foot laceration (Acute) Altered mental status (Acute) Balance disorder (Acute) Carotid artery disease (Acute) Dizziness (Acute) Atypical chest pain (Acute) Impaired glucose metabolism (Acute) History of endometrial cancer (Acute) Combined abdominal and pelvic pain (Acute) Dysuria (Acute) Infection of the breast and nipple (Acute) Yeast dermatitis (Acute) Abdominal discomfort (Acute) Fatigue (Acute) COVID-19 (Acute ~04/01/22) Back pain (Acute) Hypokalemia (Acute) Hypertension (Chronic) Anxiety (Chronic) Left knee pain (Acute) SOB (shortness of breath) (Acute) Vitamin D deficiency (Acute) Hearing loss (Acute) Vaginal mass (Acute ~06/19/18) recurrence of endometrial cancer Colon polyp (Chronic 07/12/02) adenomas polyps Endometrial cancer, grade I (Chronic 07/09/16) hysterectomy planned fro 07/15 at [facility] 07/16/16 S/P HYSTERECTOMY Hyperlipidemia (Chronic 07/31/12) Hypothyroidism (Chronic 07/31/12) Obesity (Chronic 08/12/14) Obstructive sleep apnea syndrome (Chronic 07/30/11) uses CPAP Psoriasis (Chronic) Vitamin B 12 deficiency (Chronic 08/03/14) Medical History Stress Acute UTI 12/10/22-treated at [place], [place] Phlegm in throat Cough Hyperglycemia (08/19/16) Migraine Migraine Abnormal mammogram of right breast 09/04/15 cat3, 6month f/u [place] [facility] Elevated blood sugar level 08/19/16 Abdominal abscess (07/29/16) Acute meniscal injury of right knee (03/13/17) UTI (urinary tract infection) Surgical History History of bilateral ligation of fallopian tubes Status post appendectomy History of bilateral tubal ligation 04/21/82 S/P appendectomy 04/21/82 cystectomy (~1987) uterine Uterine fibroids removed (~1987) Ligation of fallopian tube (~1982) Hysterectomy, Laproscopic (07/16/16) [facility] Bilateral salpingectomy with oophorectomy (07/16/16) [facility] Appendectomy (~1982) Family History Mother , 76 Essential hypertension Heart disease Hyperlipidemia Myocardial infarction Father , 96 Essential hypertension Heart disease Hyperlipidemia Stroke Sister Essential hypertension Heart disease Stroke Brother , 59 Essential hypertension Heart disease Hyperlipidemia Brain cancer Brother Diabetes Essential hypertension Hyperlipidemia Brother Essential hypertension Brother Essential hypertension Hyperlipidemia Maternal Grandfather , 93 Heart disease Paternal Grandfather , 81 Essential hypertension Heart disease Maternal Grandmother , 54 Rheumatoid arthritis Paternal Grandmother , 80 Heart disease Social History Smoking/Tobacco Use Status: Former Tobacco Use Quit Date: 04/21/78 Tobacco: How many years used: 15 Quit status: quit date established Second Hand Exposure: Yes Smoking risk assessment performed?: Yes Alcohol Intake: current Alcohol Intake frequency: holidays/special occasions only Drug use: Never Substance use type: does not use Caregiver/Support person: No Household members: children Housing: house Communication Needs: None Do you need help understanding health information?: Never Pets and animals: No Sexually active: No Current gender identity: female What is your relationship status?: How often do you talk on the phone with friends or family?: decline to answer How often do you get together with friends or relatives?: decline to answer How often do you attend episcopalian or scientology services?: decline to answer Do you belong to any clubs or organized social groups?: decline to answer Panel score (0-1 are the most socially isolated patients): 0 What type of physical activity do you participate in: weight lifting Seatbelt use: always Drive intox or ride w/intox bulk 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: No Do you feel safe at home: Yes Do you feel safe in your relationship?: Yes Meds Allergies and Home Medications Allergies Allergy/AdvReac Type Severity Reaction Status Date / Time aspirin Allergy Severe HIVES Verified 11/09/24 09:28 NSAIDS (Non-Steroidal Allergy Severe HIVES Verified 11/09/24 09:28 Anti-Inflamma sulfamethoxazole (From Allergy Severe face Verified 11/09/24 09:28 Bactrim) swelling trimethoprim (From Bactrim) Allergy Severe face Verified 11/09/24 09:28 swelling latex Allergy Intermediate redness Verified 11/09/24 09:28 enalapril AdvReac Severe SEVERE LEG Verified 11/09/24 09:28 PAIN clindamycin AdvReac Intermediate Hives Verified 11/09/24 09:28 hydrochlorothiazide AdvReac Mild Other (See Verified 11/09/24 09:28 Comment) cetirizine (From [facility]) AdvReac Knee pain Verified 11/09/24 09:28 lisinopril AdvReac cough Verified 11/09/24 09:28 sulfamethoxazole-trimethoprim Allergy Face gets Uncoded 11/09/24 09:28 800-160 mg blotchy Home Medications ?Medication ?Instructions ?Recorded ?Confirmed ?Type acetaminophen 500 mg tablet 1 tab PO DAILY PRN 07/30/12 11/15/24 History (Tylenol Extra Strength) fexofenadine 180 mg tablet 180 mg PO DAILY ##90 07/30/12 11/15/24 History (Preeti) CPAP Res Med Air Sense #10 #1 ea 08/01/12 03/16/24 Clinic cyanocobalamin (vitamin B-12) 1,000 mcg PO DAILY 08/06/13 11/15/24 History 1,000 mcg tablet (Vitamin B-12) selenium 200 mcg tablet 200 mcg PO DAILY 05/05/20 11/15/24 History bisacodyl 5 mg tablet 5 mg PO DAILY PRN 11/27/20 11/15/24 History cholecalciferol (vitamin D3) 25 50 mcg PO DAILY 11/27/20 11/15/24 History mcg (1,000 unit) capsule docusate sodium 250 mg capsule 500 mg PO DAILY 11/27/20 11/15/24 History fluocinonide 0.05 % topical cream 1 applic topical BID PRN 11/27/20 11/15/24 History folic acid 400 mcg tablet 0.8 mg PO DAILY 11/27/20 11/15/24 History hydrocortisone 1 % topical 1 applic topical DAILY PRN 11/27/20 11/15/24 History ointment (Aquaphor Itch Relief) fluticasone propionate 50 2 spray NS DAILY #16 grams 02/09/21 11/15/24 Rx mcg/actuation nasal spray,suspension magnesium oxide 500 mg PO DAILY 08/22/22 11/15/24 History vitamin E 400 unit tablet 45 mg PO DAILY 08/22/22 11/15/24 History hydrocortisone valerate 0.2 % 1 applic topical DAILY PRN PRN 10/09/22 11/15/24 Rx topical cream psoriasis #60 grams megestrol 40 mg tablet 40 mg PO QID #120 tabs 11/11/23 11/15/24 Rx mupirocin 2 % topical ointment 1 applic topical BID #30 grams 11/11/23 11/15/24 Rx simethicone 125 mg capsule (Gas-X 125 mg PO QD-BID PRN 11/11/23 11/15/24 History Extra Strength) levothyroxine 25 mcg tablet 25 mcg PO DAILY #90 tab-caps 02/23/24 11/15/24 Rx (Synthroid) nystatin-triamcinolone 100,000 1 applic topical BID PRN rash #60 05/10/24 11/15/24 Rx unit/g-0.1 % topical cream grams potassium chloride 20 mEq 20 meq PO DAILY #90 tabs 05/18/24 11/15/24 Rx tablet,extended release spironolactone 25 mg tablet 25 mg PO BID #180 tabs 05/18/24 11/15/24 Rx atorvastatin 10 mg tablet 10 mg PO DAILY #90 tabs 08/05/24 11/15/24 Rx metoprolol succinate 50 mg 50 mg PO DAILY #90 tabs 08/05/24 11/15/24 Rx tablet,extended release 24 hr nystatin 100,000 unit/gram topical 1 applic topical BID #60 grams 11/04/24 11/15/24 Rx powder amlodipine 10 mg tablet 10 mg PO HS 11/15/24 11/15/24 History losartan 100 mg tablet 100 mg PO HS 11/15/24 11/15/24 History phenazopyridine 200 mg tablet 200 mg PO TID PRN urinary pain 11/15/24 11/15/24 History Exam Narrative Exam Narrative: HEENT-normocephalic atraumatic mucous membranes dry Neck-no lymphadenopathy no JVD no thyromegaly Cardiovascular-no murmur rubs or gallops regular rate and rhythm Pulm-clear to auscultation bilaterally with good air exchange Abdomen-soft nontender nondistended bowel sounds x 4 quadrants Extremities-no sinus clubbing or edema bilaterally Neurologic-no focal deficits are noted Psych-she is alert she is oriented to person and place. Patient does talk tangentially and I cannot get a linear history out of her. Patient states that she has had many penalties but will not elaborate on what this means. Results Labs 11/15/24 19:11 11/15/24 19:11 Labs: Laboratory Results - last 24 hr 11/15/24 11/15/24 11/15/24 19:11 19:46 20:20 WBC 15.14 H RBC 3.73 L Hgb 11.3 Hct 34.2 L MCV 92 MCH 30.3 MCHC 33.0 RDW 14.8 H Plt Count 283 MPV 9.2 Immature Gran % 0.6 Neutrophils % 81.9 Lymphocytes % 8.4 Monocytes % 8.5 Eosinophils % 0.2 Basophils % 0.4 Nucleated RBC % 0.0 Absolute Neutrophils 12.40 H Absolute Lymphocytes 1.27 Absolute Monocytes 1.29 H Absolute Eosinophils 0.03 Absolute Basophils 0.06 APTT Cancelled 21.4 VBG Lactate 2.1 Sodium 137 Potassium 4.6 Chloride 102 Carbon Dioxide 20.2 L Anion Gap 14.8 H BUN 24 H Creatinine 1.3 H Est GFR (CKD-EPI 2020) 42.09 Glucose 108 H Calcium 10.1 Total Bilirubin 0.4 AST 83 H ALT 39 Alkaline Phosphatase 62 Troponin I 71 H* 72 H* Total Protein 8.0 Albumin 4.5 Urine Color Urine Clarity Urine pH Ur Specific [place] Urine Protein Urine Ketones Urine Blood Urine Nitrite Urine Bilirubin Urine Urobilinogen Ur Leukocyte Esterase Urine RBC Urine WBC Ur Epithelial Cells Urine Crystals Urine Bacteria Urine Casts Urine Mucus Ur Culture Indicated? Urine Glucose 11/15/24 11/15/24 20:30 22:50 WBC RBC Hgb Hct MCV MCH MCHC RDW Plt Count MPV Immature Gran % Neutrophils % Lymphocytes % Monocytes % Eosinophils % Basophils % Nucleated RBC % Absolute Neutrophils Absolute Lymphocytes Absolute Monocytes Absolute Eosinophils Absolute Basophils APTT VBG Lactate 1.8 Sodium Potassium Chloride Carbon Dioxide Anion Gap BUN Creatinine Est GFR (CKD-EPI 2020) Glucose Calcium Total Bilirubin AST ALT Alkaline Phosphatase Troponin I Total Protein Albumin Urine Color Dark Yellow Urine Clarity Clear Urine pH 5.0 Ur Specific [place] 1.015 Urine Protein 100 H Urine Ketones 15 H Urine Blood Moderate H Urine Nitrite Positive H Urine Bilirubin Negative Urine Urobilinogen 1.0 H Ur Leukocyte Esterase Small H Urine RBC 20-50 H Urine WBC >50 H Ur Epithelial Cells Rare Urine Crystals Negative Urine Bacteria Packed Urine Casts Negative Urine Mucus Negative Ur Culture Indicated? Yes Urine Glucose 100 H Last Vital Signs Temp 37.7 C H 11/15/24 18:34 Pulse 88 11/15/24 23:01 Resp 25 H 11/15/24 23:20 BP 152/58 H 11/15/24 23:01 Pulse Ox 98 11/15/24 22:20 Time Spent Time spent with Patient: 40-54 minutes Time was spent: preparing to see the patient(eg.review tests), obtaining and/or reviewing separately otained hiistory, ordering medications,tests, procedures, referring, communicating with other health direct care specialist, indepentently interpreting results, counseling the patient and care coordination
[2024-11-15 23:35] LABS: COVID-19 PCR Negative (Negative); RSV PCR Negative (Negative)
[2024-11-15] MEDS: Tetanus & Diphtheria Tox,ADULT 0.5 ML VIAL IM (23:45)
[2024-11-16] VITALS (12 sets, daily range): BP systolic 119–152; BP diastolic 55–78; PULSE 69–95; RESP 16–28; TEMP 36.4–37.6; O2SAT 95–98
--- NOTE | 2024-11-16 | DI.MRI_ITS ---
Exam(s) MR BRAIN WO EXAM: MR BRAIN WO CLINICAL HISTORY: Word salad ? CVA TECHNIQUE: Multiplanar multisequence MRI of the brain was performed. COMPARISON: CT CT BRAIN NECK CTA from 11/15/2024 FINDINGS: CEREBRAL PARENCHYMA: There is no evidence of intracranial hemorrhage, mass effect, or shift of midline structures. There are no extra-axial fluid collections. Ventricles are not enlarged or shifted. Hyperostosis frontalis interna is noted. There is no significant focal signal abnormality in the cerebellar hemispheres nor within the liz, midbrain, and thalami. There are multiple foci of sub cm signal abnormality in bilateral periventricular white matter consistent chronic small vessel disease. However, on diffusion imaging there are foci of restricted diffusion in the left external capsule as well as a few smaller foci, extending to the posterior parietal l obes. PITUITARY GLAND: No mass nor parasellar abnormality. No obvious abnormality in the cavernous sinuses. FLOW VOIDS: The expected flow void are noted. No evidence of obvious aneurysm nor obvious vascular malformation. PARANASAL SINUSES: The visualized paranasal sinuses appear unremarkable. No obvious finding ORBITS: No obvious findings. IMPRESSION: Findings are consistent with acute on chronic ischemic disease in the brain. There are areas of restricted diffusion left side of the brain, most prominent in the left external capsule region consistent with acute ischemic event. Possibly embolic. No evidence of intracranial hemorrhage, intra or extra-axial. Report called by myself to the hospitalist ([id number]) 11/16/2024 at 12:26 p.m. DATA REPOSITORY:
--- NOTE | 2024-11-16 00:35 | W.PC.ACHO ---
Registration Status: REG ER Primary Language: Preferred Language: Yi ED Information & Data Chief Complaint CVA/TIA 11/15/24 21:41 Triage Note BIBA AMS, found on bedroom 11/15/24 18:34 floor by daughter, nonsense speech, was unable to get off floor byself, broken glass on floor around PT LKW 1200 today Medical / Surgical History (Last Reviewed 11/15/24 @ 21:46 by Nadia Humphrey MD) Stress Acute UTI Phlegm in throat Cough Hyperglycemia (08/19/16) Migraine Migraine Abnormal mammogram of right breast Elevated blood sugar level Abdominal abscess (07/29/16) Acute meniscal injury of right knee (03/13/17) UTI (urinary tract infection) (Last Reviewed 11/15/24 @ 21:46 by Nadia Humphrey MD) History of bilateral ligation of fallopian tubes Status post appendectomy History of bilateral tubal ligation S/P appendectomy cystectomy (~1987) Uterine fibroids removed (~1987) Ligation of fallopian tube (~1982) Hysterectomy, Laproscopic (07/16/16) Bilateral salpingectomy with oophorectomy (07/16/16) Appendectomy (~1982) Most Recent Vital Signs Temperature 37.7 C H 11/15/24 18:34 Temperature Source Temporal Artery Scan 11/15/24 18:34 Pulse 86 11/16/24 00:01 Pulse 88 11/16/24 00:20 Respiratory Rate 28 H 11/16/24 00:20 Respiratory Effort Normal 11/15/24 19:21 Respiratory Depth Normal 11/15/24 19:21 Blood Pressure 138/55 L 11/16/24 00:01 Blood Pressure Mean 85 11/16/24 00:01 Pulse Oximetry 98 11/15/24 22:20 Oxygen Delivery Method Room Air 11/15/24 18:34 Oxygen Flow Rate 0 11/15/24 18:34 Allergies aspirin Allergy (Severe, Verified 11/09/24 09:28) HIVES Severe hive, convulsion, per pt. -BR NSAIDS (Non-Steroidal Anti-Inflamma Allergy (Severe, Verified 11/09/24 09:28) HIVES sulfamethoxazole (From Bactrim) Allergy (Severe, Verified 11/09/24 09:28) face swelling trimethoprim (From Bactrim) Allergy (Severe, Verified 11/09/24 09:28) face swelling latex Allergy (Intermediate, Verified 11/09/24 09:28) redness enalapril Adverse Reaction (Severe, Verified 11/09/24 09:28) SEVERE LEG PAIN clindamycin Adverse Reaction (Intermediate, Verified 11/09/24 09:28) Hives hydrochlorothiazide Adverse Reaction (Mild, Verified 11/09/24 09:28) Other (See Comment) Stiff cetirizine (From Zyrtec) Adverse Reaction (Verified 11/09/24 09:28) Knee pain lisinopril Adverse Reaction (Verified 11/09/24 09:28) cough sulfamethoxazole-trimethoprim 800-160 mg Allergy (Uncoded 11/09/24 09:28) Face gets blotchy Precautions Isolation Standard precaution 11/15/24 19:51 Active Medications Generic Name Dose Route Start Last Admin Trade Name Freq PRN Reason Stop Dose Admin Iohexol 100 ml 11/15/24 20:45 11/15/24 20:36 Omnipaque 350 Mg/Ml 100 Ml Btl IJ 12/15/24 23:59 70 ml DIRECTED BIMAL Administration Sodium Chloride 0 ml 11/15/24 18:25 11/15/24 20:37 Normal Saline Flush 10 Ml Syr IVP 10 ml PRN PRN Administration Sodium Chloride 50 ml 11/15/24 20:45 11/15/24 20:38 Normal Saline - Diluent 50 Ml Vial IJ 50 ml .FOR DI USE BIMAL Administration IV IV Catheter Type [Left Hand] Saline Lock IV Catheter Type [Right Saline Lock Antecubital] IV Catheter Gauge [Left Hand] 22 IV Catheter Gauge [Right 18 Antecubital] Diet Orders Category Date Time Status Nothing Per Oral [DIET] Nutrition 11/16/24 Breakfast Active Regular/Normal [DIET] Nutrition 11/16/24 Breakfast Active Diagnostics 11/16/24 11/15/24 11/15/24 Range/Units 05:35 22:55 22:50 WBC Pending (4.4-10.8) 10^3/uL RBC Pending (3.93-5.22) 10^6/uL Hgb Pending (11.2-15.7) g/dL Hct Pending (36.0-46.0) % MCV Pending (80-95) fL MCH Pending (27.0-33.0) pg MCHC Pending (32.0-36.0) % RDW Pending (11.7-14.6) % Plt Count Pending (130-400) 10^3/uL MPV Pending (8.0-11.0) fL Immature Gran % Pending % Neutrophils % Pending % Lymphocytes % Pending % Monocytes % Pending % Eosinophils % Pending % Basophils % Pending % Nucleated RBC % (0.0-0.3) % Absolute Neutrophils Pending (1.2-6.7) 10^3/uL Absolute Lymphocytes Pending (1.2-3.4) 10^3/uL Absolute Monocytes Pending (0.1-0.8) 10^3/uL Absolute Eosinophils Pending (0.0-0.7) 10^3/uL Absolute Basophils Pending (0.0-0.2) 10^3/uL APTT VBG Lactate 1.8 (<or=2.0) mmol/L Sodium Pending (136-145) mmol/L Potassium Pending (3.5-5.1) mmol/L Chloride Pending (98-107) mmol/L Carbon Dioxide Pending (21.0-32.0) mmol/L Anion Gap Pending (3-11) mmol/L BUN Pending (7-18) mg/dL Creatinine Pending (0.55-1.02) mg/dL Est GFR (CKD-EPI 2020) Pending (mL/min/1.73m2) Glucose Pending (74-106) mg/dL Calcium Pending (8.5-10.1) mg/dL Total Bilirubin Pending (0.2-1.0) mg/dL AST Pending (15-37) U/L ALT Pending (14-59) U/L Alkaline Phosphatase Pending (46-116) U/L Creatine Kinase 4128 H (26-192) U/L Troponin I (<or=51) ng/L Total Protein Pending (6.4-8.2) g/dL Albumin Pending (3.4-5.0) g/dL TSH Pending Urine Color (Yellow) Urine Clarity (Clear) Urine pH (5-8) Ur Specific [place] (1.005-1.025) Urine Protein (Neg-Trace) mg/dL Urine Ketones (Negative) mg/dL Urine Blood (Negative) Urine Nitrite (Negative) Urine Bilirubin (Negative) Urine Urobilinogen (Up to 0.2) mg/dL Ur Leukocyte Esterase (Negative) Urine RBC (0-2) HPF Urine WBC (0-5) HPF Ur Epithelial Cells (Negative) HPF Urine Crystals (Negative) HPF Urine Bacteria (Negative) HPF Urine Casts (Negative) LPF Urine Mucus (Negative) Ur Culture Indicated? Urine Glucose (Negative) mg/dL COVID-19 Source Nasopharynx SARS-CoV-2 (PCR) Negative (Negative) Influenza Type A (PCR) Negative (Negative) Influenza Type B (PCR) Negative (Negative) RSV (PCR) Negative (Negative) 11/15/24 11/15/24 11/15/24 Range/Units 20:30 20:20 19:46 WBC (4.4-10.8) 10^3/uL RBC (3.93-5.22) 10^6/uL Hgb (11.2-15.7) g/dL Hct (36.0-46.0) % MCV (80-95) fL MCH (27.0-33.0) pg MCHC (32.0-36.0) % RDW (11.7-14.6) % Plt Count (130-400) 10^3/uL MPV (8.0-11.0) fL Immature Gran % % Neutrophils % % Lymphocytes % % Monocytes % % Eosinophils % % Basophils % % Nucleated RBC % (0.0-0.3) % Absolute Neutrophils (1.2-6.7) 10^3/uL Absolute Lymphocytes (1.2-3.4) 10^3/uL Absolute Monocytes (0.1-0.8) 10^3/uL Absolute Eosinophils (0.0-0.7) 10^3/uL Absolute Basophils (0.0-0.2) 10^3/uL APTT 21.4 VBG Lactate (<or=2.0) mmol/L Sodium (136-145) mmol/L Potassium (3.5-5.1) mmol/L Chloride (98-107) mmol/L Carbon Dioxide (21.0-32.0) mmol/L Anion Gap (3-11) mmol/L BUN (7-18) mg/dL Creatinine (0.55-1.02) mg/dL Est GFR (CKD-EPI 2020) (mL/min/1.73m2) Glucose (74-106) mg/dL Calcium (8.5-10.1) mg/dL Total Bilirubin (0.2-1.0) mg/dL AST (15-37) U/L ALT (14-59) U/L Alkaline Phosphatase (46-116) U/L Creatine Kinase (26-192) U/L Troponin I 72 H* (<or=51) ng/L Total Protein (6.4-8.2) g/dL Albumin (3.4-5.0) g/dL TSH Urine Color Dark Yellow (Yellow) Urine Clarity Clear (Clear) Urine pH 5.0 (5-8) Ur Specific [place] 1.015 (1.005-1.025) Urine Protein 100 H (Neg-Trace) mg/dL Urine Ketones 15 H (Negative) mg/dL Urine Blood Moderate H (Negative) Urine Nitrite Positive H (Negative) Urine Bilirubin Negative (Negative) Urine Urobilinogen 1.0 H (Up to 0.2) mg/dL Ur Leukocyte Esterase Small H (Negative) Urine RBC 20-50 H (0-2) HPF Urine WBC >50 H (0-5) HPF Ur Epithelial Cells Rare (Negative) HPF Urine Crystals Negative (Negative) HPF Urine Bacteria Packed (Negative) HPF Urine Casts Negative (Negative) LPF Urine Mucus Negative (Negative) Ur Culture Indicated? Yes Urine Glucose 100 H (Negative) mg/dL COVID-19 Source SARS-CoV-2 (PCR) (Negative) Influenza Type A (PCR) (Negative) Influenza Type B (PCR) (Negative) RSV (PCR) (Negative) 11/15/24 Range/Units 19:11 WBC 15.14 H (4.4-10.8) 10^3/uL RBC 3.73 L (3.93-5.22) 10^6/uL Hgb 11.3 (11.2-15.7) g/dL Hct 34.2 L (36.0-46.0) % MCV 92 (80-95) fL MCH 30.3 (27.0-33.0) pg MCHC 33.0 (32.0-36.0) % RDW 14.8 H (11.7-14.6) % Plt Count 283 (130-400) 10^3/uL MPV 9.2 (8.0-11.0) fL Immature Gran % 0.6 % Neutrophils % 81.9 % Lymphocytes % 8.4 % Monocytes % 8.5 % Eosinophils % 0.2 % Basophils % 0.4 % Nucleated RBC % 0.0 (0.0-0.3) % Absolute Neutrophils 12.40 H (1.2-6.7) 10^3/uL Absolute Lymphocytes 1.27 (1.2-3.4) 10^3/uL Absolute Monocytes 1.29 H (0.1-0.8) 10^3/uL Absolute Eosinophils 0.03 (0.0-0.7) 10^3/uL Absolute Basophils 0.06 (0.0-0.2) 10^3/uL APTT Cancelled VBG Lactate 2.1 (<or=2.0) mmol/L Sodium 137 (136-145) mmol/L Potassium 4.6 (3.5-5.1) mmol/L Chloride 102 (98-107) mmol/L Carbon Dioxide 20.2 L (21.0-32.0) mmol/L Anion Gap 14.8 H (3-11) mmol/L BUN 24 H (7-18) mg/dL Creatinine 1.3 H (0.55-1.02) mg/dL Est GFR (CKD-EPI 2020) 42.09 (mL/min/1.73m2) Glucose 108 H (74-106) mg/dL Calcium 10.1 (8.5-10.1) mg/dL Total Bilirubin 0.4 (0.2-1.0) mg/dL AST 83 H (15-37) U/L ALT 39 (14-59) U/L Alkaline Phosphatase 62 (46-116) U/L Creatine Kinase (26-192) U/L Troponin I 71 H* (<or=51) ng/L Total Protein 8.0 (6.4-8.2) g/dL Albumin 4.5 (3.4-5.0) g/dL TSH Urine Color (Yellow) Urine Clarity (Clear) Urine pH (5-8) Ur Specific [place] (1.005-1.025) Urine Protein (Neg-Trace) mg/dL Urine Ketones (Negative) mg/dL Urine Blood (Negative) Urine Nitrite (Negative) Urine Bilirubin (Negative) Urine Urobilinogen (Up to 0.2) mg/dL Ur Leukocyte Esterase (Negative) Urine RBC (0-2) HPF Urine WBC (0-5) HPF Ur Epithelial Cells (Negative) HPF Urine Crystals (Negative) HPF Urine Bacteria (Negative) HPF Urine Casts (Negative) LPF Urine Mucus (Negative) Ur Culture Indicated? Urine Glucose (Negative) mg/dL COVID-19 Source SARS-CoV-2 (PCR) (Negative) Influenza Type A (PCR) (Negative) Influenza Type B (PCR) (Negative) RSV (PCR) (Negative) 11/15/24 20:30 Urine Culture - Pending Urine - Reflex from Ua 11/15/24 19:46 Blood Culture - Pending Blood 11/15/24 19:46 Blood Culture - Pending Blood [id number] Documentation Fingerstick Glucose Start: 11/15/24 18:27 Freq: .Stat Status: Active Protocol: Activity Type Activity Date Activity User E-sign Co-sign Detail Recorded Client Recorded Date Recorded By Document 11/15/24 18:50 CF [id number] 11/15/24 18:50 CF Intake and Output - 24 Hour Total 11/15/24 18:08 thru 11/15/24 23:00 Intake Total 1110 Balance 1110 Weight 108.409 kg Intake: IV 1110 Falls Risk Assessment History of Falls Admit Due to Fall 11/15/24 19:21 Contributing Factors Confusion,Impairments 11/15/24 19:21 Fall Total Score 31 11/15/24 19:21 Level of Risk Moderate Risk 11/15/24 19:21 Problems (Last Reviewed 11/15/24 @ 21:46 by Nadia Humphrey MD) Dysphasia (Acute) Tetanus toxoid vaccination administered at current visit (Acute) Elevated lactic acid level (Acute) Acute UTI (Acute) Foot laceration (Acute) Altered mental status (Acute) Carotid artery disease (Acute) Hypertension (Chronic) Hyperlipidemia (Chronic 07/31/12) Hypothyroidism (Chronic 07/31/12) Obstructive sleep apnea syndrome (Chronic 07/30/11) v v v v v v v v v Sending and/or Receiving Nurses: Please use comment section below to note any information pertinent to the patient hand-off not included above. Information / Comments: Pt found by daughter with AMS, down on floor. brought in by EMS, found to have UTI. persistant AMS. 1st dose ABX given. tetanus updated/given. Report received from: MARLO Mc
[2024-11-16] MEDS: Normal Saline 1,000 ML 125 ML IV ×2 (01:36→10:36)
[2024-11-16] MEDS: Normal Saline Flush 10 ML SYR IVP ×3 (01:37→21:07)
[2024-11-16] MEDS: PIPERACILLIN/TAZO 3.375 GM in Normal Saline 50 ML IVPB ×3 (04:58→17:16)
[2024-11-16] MEDS: Levothyroxine 25 MCG TAB PO (05:58)
[2024-11-16 07:16] LABS: Abs Immature Grans 0.04 10^3/uL (0.0-0.06); HCT 30.8 % (36.0-46.0); HGB 10.1 g/dL (11.2-15.7); Immature Grans % 0.4 %; MCH 30.1 pg (27.0-33.0); MCHC 32.8 % (32.0-36.0); MCV 92 fL (80-95); MPV 8.9 fL (8.0-11.0); Platelet Count 232 10^3/uL (130-400); RBC 3.36 10^6/uL (3.93-5.22); RDW 15.0 % (11.7-14.6); RDW-SD 50.5 fL; WBC 9.36 10^3/uL (4.4-10.8)
[2024-11-16 07:45] LABS: ALT 33 U/L (14-59); AST 71 U/L (15-37); Albumin 3.6 g/dL (3.4-5.0); Alkaline Phosphatase 57 U/L (46-116); Anion Gap 11.2 mmol/L (3-11); BUN 17 mg/dL (7-18); Bilirubin, Total 0.7 mg/dL (0.2-1.0); CO2 20.8 mmol/L (21.0-32.0); Calcium 9.0 mg/dL (8.5-10.1); Chloride 106 mmol/L (98-107); Estimated GFR 51.43 (mL/min/1.73m2); Glucose 107 mg/dL (74-106); Potassium 4.2 mmol/L (3.5-5.1); Sodium 138 mmol/L (136-145); Total Protein 6.6 g/dL (6.4-8.2)
[2024-11-16 08:14] LABS: TSH (W/Ref FT4) 1.43 uIU/mL (0.36-3.74)
--- NOTE | 2024-11-16 08:55 | PGE_ITS ---
Date of Service Date of service: 11/16/24 Time of Service: 08:55 Assessment and Plan Assessment and plan (1) Acute CVA (cerebrovascular accident): Status: Acute Assessment and plan: MRI positive for stroke * NIH Stroke Scale: 7 * Neurology: * Teleneurology consult: recommendations: * Continue neurologic monitoring and serial NIHSS. * Repeat imaging as needed. * Keppra 2 gm loading (20 mg/kg) and 750 mg orally daily * Plavix 300 mg given. Aspirin 81 mg given. Plavix 75 mg daily (x 3 weeks) and aspirin 81 mg daily (continue post plavix dc) (remote allergy to aspirin - hives - will give one dose and monitor closely for signs of allergies, if none, continue -if s/s of allergy discontinue. * EEG if not clearing - not available here this week will need tn - [facility] teleneuro states neuro will accept. * Echo w bubble * Medical Management: * tPA aoutside window. * Antiplatelet therapy (aspirin 81 mg daily). * Statin therapy (atorvastatin 80 mg daily). * Blood pressure management per stroke protocol. * BP control (e.g., goal SBP <140 mmHg). * Risk Factor Modification: * Tight control of HTN, DM, lipids. * Non smoker * No Afib * Rehabilitation: * PT/OT/ST evaluation. * Early mobilization. * Consider inpatient rehab based on functional status. * Disposition Planning: * Monitor for 24?72 hours depending on stroke severity and location. * Coordinate with case management and social work. * Patient and Family Education: * Explain stroke etiology, prevention, and recovery timeline. * Discuss importance of medication adherence and lifestyle changes Palliative Care consult - goals of care. (2) Acute UTI: Status: Acute Assessment and plan: urine cultures are pending. Reasonable to continue broad spectrum coverage in light of worsening resistance. Continue Zosyn 3.375 grams q 6 (3) Altered mental status: Status: Acute Assessment and plan: MRI - positive stroke - word salad - speech consult, PT OT palliative care cx. (4) Dysphasia: Status: Acute Assessment and plan: Speech therapy consult - word salad, does not follow commands Will need acute rehab (5) Hyperlipidemia: Status: Chronic Assessment and plan: Continue with medical management (6) Hypertension: Status: Chronic Assessment and plan: Continue with medical management (7) Carotid artery disease: Status: Acute Assessment and plan: Stable (8) Hypothyroidism: Status: Chronic Assessment and plan: Will check a TSH for completeness (9) Obstructive sleep apnea syndrome: Status: Chronic Assessment and plan: Patient would benefit from using her CPAP if we can get 1 from home we will see if we can supply 1. DVT prophylaxis with Lovenox Subjective Subjective Patient reports: no new complaints Interval history since last seen: Patient is unable to communicate verbally, written or follow commands. Objective Last Vital Signs Temp 36.4 C L 11/16/24 06:59 Pulse 77 11/16/24 06:59 Resp 17 11/16/24 06:59 BP 129/65 11/16/24 06:59 Pulse Ox 98 11/16/24 06:59 Laboratory Results - last 24 hr 11/15/24 11/15/24 11/15/24 19:11 19:46 20:20 WBC 15.14 H RBC 3.73 L Hgb 11.3 Hct 34.2 L MCV 92 MCH 30.3 MCHC 33.0 RDW 14.8 H Plt Count 283 MPV 9.2 Immature Gran % 0.6 Neutrophils % 81.9 Lymphocytes % 8.4 Monocytes % 8.5 Eosinophils % 0.2 Basophils % 0.4 Nucleated RBC % 0.0 Absolute Neutrophils 12.40 H Absolute Lymphocytes 1.27 Absolute Monocytes 1.29 H Absolute Eosinophils 0.03 Absolute Basophils 0.06 APTT Cancelled 21.4 VBG Lactate 2.1 Sodium 137 Potassium 4.6 Chloride 102 Carbon Dioxide 20.2 L Anion Gap 14.8 H BUN 24 H Creatinine 1.3 H Est GFR (CKD-EPI 2020) 42.09 Glucose 108 H Calcium 10.1 Total Bilirubin 0.4 AST 83 H ALT 39 Alkaline Phosphatase 62 Creatine Kinase Troponin I 71 H* 72 H* Total Protein 8.0 Albumin 4.5 TSH Urine Color Urine Clarity Urine pH Ur Specific [place] Urine Protein Urine Ketones Urine Blood Urine Nitrite Urine Bilirubin Urine Urobilinogen Ur Leukocyte Esterase Urine RBC Urine WBC Ur Epithelial Cells Urine Crystals Urine Bacteria Urine Casts Urine Mucus Ur Culture Indicated? Urine Glucose COVID-19 Source SARS-CoV-2 (PCR) Influenza Type A (PCR) Influenza Type B (PCR) RSV (PCR) 11/15/24 11/15/24 11/15/24 20:30 22:50 22:55 WBC RBC Hgb Hct MCV MCH MCHC RDW Plt Count MPV Immature Gran % Neutrophils % Lymphocytes % Monocytes % Eosinophils % Basophils % Nucleated RBC % Absolute Neutrophils Absolute Lymphocytes Absolute Monocytes Absolute Eosinophils Absolute Basophils APTT VBG Lactate 1.8 Sodium Potassium Chloride Carbon Dioxide Anion Gap BUN Creatinine Est GFR (CKD-EPI 2020) Glucose Calcium Total Bilirubin AST ALT Alkaline Phosphatase Creatine Kinase 4128 H Troponin I Total Protein Albumin TSH Urine Color Dark Yellow Urine Clarity Clear Urine pH 5.0 Ur Specific [place] 1.015 Urine Protein 100 H Urine Ketones 15 H Urine Blood Moderate H Urine Nitrite Positive H Urine Bilirubin Negative Urine Urobilinogen 1.0 H Ur Leukocyte Esterase Small H Urine RBC 20-50 H Urine WBC >50 H Ur Epithelial Cells Rare Urine Crystals Negative Urine Bacteria Packed Urine Casts Negative Urine Mucus Negative Ur Culture Indicated? Yes Urine Glucose 100 H COVID-19 Source Nasopharynx SARS-CoV-2 (PCR) Negative Influenza Type A (PCR) Negative Influenza Type B (PCR) Negative RSV (PCR) Negative 11/16/24 07:00 WBC 9.36 RBC 3.36 L Hgb 10.1 L Hct 30.8 L MCV 92 MCH 30.1 MCHC 32.8 RDW 15.0 H Plt Count 232 MPV 8.9 Immature Gran % 0.4 Neutrophils % 77.7 Lymphocytes % 11.6 Monocytes % 8.4 Eosinophils % 1.4 Basophils % 0.5 Nucleated RBC % 0.0 Absolute Neutrophils 7.26 H Absolute Lymphocytes 1.09 L Absolute Monocytes 0.79 Absolute Eosinophils 0.13 Absolute Basophils 0.05 APTT VBG Lactate Sodium 138 Potassium 4.2 Chloride 106 Carbon Dioxide 20.8 L Anion Gap 11.2 H BUN 17 Creatinine 1.1 H Est GFR (CKD-EPI 2020) 51.43 Glucose 107 H Calcium 9.0 Total Bilirubin 0.7 AST 71 H ALT 33 Alkaline Phosphatase 57 Creatine Kinase Troponin I Total Protein 6.6 Albumin 3.6 TSH 1.43 Urine Color Urine Clarity Urine pH Ur Specific [place] Urine Protein Urine Ketones Urine Blood Urine Nitrite Urine Bilirubin Urine Urobilinogen Ur Leukocyte Esterase Urine RBC Urine WBC Ur Epithelial Cells Urine Crystals Urine Bacteria Urine Casts Urine Mucus Ur Culture Indicated? Urine Glucose COVID-19 Source SARS-CoV-2 (PCR) Influenza Type A (PCR) Influenza Type B (PCR) RSV (PCR) Time Spent with Patient Time Spent with Patient: >50 minutes Time was spent: preparing to see the patient(eg.review tests), obtaining and/or reviewing separately otained hiistory, ordering medications,tests, procedures, referring, communicating with other health reservoir caretaker, indepentently interpreting results, counseling the patient and care coordination
--- NOTE | 2024-11-16 09:09 | INITIAL_ITS ---
Date of service: 11/16/24 Time of Service: 09:09 Care Management Initial Assmt Initial Assessment Reason for Hospitalization: Uti Functional Status/Living Situation Patient Presentation: Roseann was sitting up in a chair when CM met with her. She smiled and nodded yes when asked how she is doing. When asked where she lives, Roseann responded with unintelligible words. Roseann was admitted with a Uti however it is now apparent she has had a CVA as well. Her initial CT scan was negative, however an MRI done this morning identified areas of restricted diffusion left side of the brain, most prominent in the left external capsule region consistent with acute ischemic event Possibly embolic. Roseann was unable to provide any useful information so CM reached out to her daughter Elly and granddaughter Alyssa by phone. Shortly afterwards,Elly came to visit and was able to provide additional information. Roseann was able to communicate a bit better this afternoon. She was able to answer some questions appropriately but at other times she was not understandable. Roseann lives in a single family home in [place] with her daughter Elly who is her only child. She has one granddaughter, Alyssa.Roseann has a cane and 2 walkers which she uses as needed. She is independent with ADLs and does not receive any community services. Elly reported that about a year ago Roseann had an episode where she fell over onto her side and was unable to use her arms for a short period. That cleared but Renuka stated since then Roseann has continued to have difficulty with writing, expressing her thoughts and has seemed weaker. Town of Residence: [place] Resides with: Child (lives with daughter Elly) Natural Supports: family Employment Status: Retired Instrumental Activities of Daily Living (ADLs): Independent Medications Medication Management: No Issues/Barriers identified Physical Functioning/Mobility Assistive Device: walker and cane Advance Directives Advance Directives: Do you have an Advance Directive: Y , 11:08 AD On File at [facility]: Y 01/03/21, 15:06 Date Asked 05/07/18 Today, 09:03 AD Date Reviewed 11/15/24 Today, 09:03 COLST On File at [facility] No 08/12/22, 16:42 COLST Date Scanned Code Status Resuscitation Status Full Code Insurance Coverage/Financial Issues Insurance: Medicare / Care Team Visit Care Team Role Provider Type Kristen Tejeda NP MD [facility] STAFF PHYSICIAN Eve Londono MD, [place] Primary Care Provider [facility] Other Providers OTHER Nadia Humphrey MD Emergency Provider [facility] STAFF PHYSICIAN Dequan Crawford MD Admit Provider [facility] STAFF PHYSICIAN Attending Provider Discharge Potential Discharge Needs: PCP F/U Appt Anticipated Barriers to Discharge: None Identified Patient/Family Education Needs: Review discharge instructions, discuss Ask Me T hree Transportation: Private vehicle Plan: Anticipate Roseann will be discharged home, possibly with new home health services, when medically cleared. Speech therapy has recommended acute rehab for her aphasia. A referral will be sent to [facility] if the family is in agreement. Roseann will follow up with her PCP and plan of care and transport with family. CM will follow. Social Determinants of Health Screening Will the Patient Participate in the Screening?: Unable to obtain PFSH All Active Problems (Updated 11/16/24 @ 14:39 by Eve Londono MD, ANNIE) Advance care planning (Acute) Dysphasia (Acute) Tetanus toxoid vaccination administered at current visit (Acute) Elevated lactic acid level (Acute) Acute UTI (Acute) Foot laceration (Acute) Altered mental status (Acute) Balance disorder (Acute) Carotid artery disease (Acute) Dizziness (Acute) Atypical chest pain (Acute) Impaired glucose metabolism (Acute) History of endometrial cancer (Acute) Combined abdominal and pelvic pain (Acute) Dysuria (Acute) Infection of the breast and nipple (Acute) Yeast dermatitis (Acute) Abdominal discomfort (Acute) Fatigue (Acute) COVID-19 (Acute ~04/01/22) Back pain (Acute) Hypokalemia (Acute) Hypertension (Chronic) Anxiety (Chronic) Left knee pain (Acute) SOB (shortness of breath) (Acute) Vitamin D deficiency (Acute) Hearing loss (Acute) Vaginal mass (Acute ~06/19/18) recurrence of endometrial cancer Colon polyp (Chronic 07/12/02) adenomas polyps Endometrial cancer, grade I (Chronic 07/09/16) hysterectomy planned fro 07/[address] [facility] 07/16/16 S/P HYSTERECTOMY Hyperlipidemia (Chronic 07/31/12) Hypothyroidism (Chronic 07/31/12) Obesity (Chronic 08/12/14) Obstructive sleep apnea syndrome (Chronic 07/30/11) uses CPAP Psoriasis (Chronic) Vitamin B 12 deficiency (Chronic 08/03/14) Medical History Stress Acute UTI 12/10/22-[facility] at [facility] [place] Phlegm in throat Cough Hyperglycemia (08/19/16) Migraine Migraine Abnormal mammogram of right breast 09/04/15 cat3, 6month f/[place] [facility] [place] Elevated blood sugar level 08/19/16 Abdominal abscess (07/29/16) Acute meniscal injury of right knee (03/13/17) UTI (urinary tract infection) Surgical History History of bilateral ligation of fallopian tubes Status post appendectomy History of bilateral tubal ligation 04/21/82 S/P appendectomy 04/21/82 cystectomy (~1987) uterine Uterine fibroids removed (~1987) Ligation of fallopian tube (~1982) Hysterectomy, Laproscopic (07/16/16) [facility] Bilateral salpingectomy with oophorectomy (07/16/16) [facility] Appendectomy (~1982) Family History Mother , 76 Essential hypertension Heart disease Hyperlipidemia Myocardial infarction Father , 96 Essential hypertension Heart disease Hyperlipidemia Stroke Sister Essential hypertension Heart disease Stroke Brother , 59 Essential hypertension Heart disease Hyperlipidemia Brain cancer Brother Diabetes Essential hypertension Hyperlipidemia Brother Essential hypertension Brother Essential hypertension Hyperlipidemia Maternal Grandfather , 93 Heart disease Paternal Grandfather , 81 Essential hypertension Heart disease Maternal Grandmother , 54 Rheumatoid arthritis Paternal Grandmother , 80 Heart disease Social History Smoking/Tobacco Use Status: Former Tobacco Use Quit Date: 04/21/78 Tobacco: How many years used: 15 Quit status: quit date established Second Hand Exposure: Yes Smoking risk assessment performed?: Yes Alcohol Intake: current Alcohol Intake frequency: holidays/special occasions only Drug use: Never Substance use type: does not use Caregiver/Support person: No Household members: children Housing: house Communication Needs: None Do you need help understanding health information?: Never Pets and animals: No Sexually active: No Current gender identity: female What is your relationship status?: How often do you talk on the phone with friends or family?: decline to answer How often do you get together with friends or relatives?: decline to answer How often do you attend holiness or hoahaoism services?: decline to answer Do you belong to any clubs or organized social groups?: decline to answer Panel score (0-1 are the most socially isolated patients): 0 What type of physical activity do you participate in: weight lifting Seatbelt use: always Drive intox or ride w/intox water tanker driver: No Do you feel safe at home: Yes Do you feel safe in your relationship?: Yes
--- NOTE | 2024-11-16 10:03 | PT.INIE ---
PT Notes Visit Reasons: UTI/AMS Physical Therapy Inpatient Initial Evaluation Date: 11/16/2024 Referring Doctor: Dr Crawford PT Orders: PT CONSULT: PT Evaluation and treatment Precautions: Standard, word finding deficits, IV access left hand Patient Profile/Admitting Diagnosis: Roseann is a 79-year-old female presented to the ED status post fall at home. Patient found by daughter with noted cut to right foot and unintelligible speaking. Head CT negative. Patient found to have UTI and started on IV fluids and antibiotics. Patient was admitted for further workup including MRI which revealed the following Findings are consistent with acute on chronic ischemic disease in the brain. There are areas of restricted diffusion left side of the brain, most prominent in the left external capsule region consistent with acute ischemic event. Possibly embolic. PMHX: Advance care planning (Acute) Dysphasia (Acute) Tetanus toxoid vaccination administered at current visit (Acute) Elevated lactic acid level (Acute) Acute UTI (Acute) Foot laceration (Acute) Altered mental status (Acute) Balance disorder (Acute) Carotid artery disease (Acute) Dizziness (Acute) Atypical chest pain (Acute) Impaired glucose metabolism (Acute) History of endometrial cancer (Acute) Combined abdominal and pelvic pain (Acute) Dysuria (Acute) Infection of the breast and nipple (Acute) Yeast dermatitis (Acute) Abdominal discomfort (Acute) Fatigue (Acute) COVID-19 (Acute ~04/01/22) Back pain (Acute) Hypokalemia (Acute) Hypertension (Chronic) Anxiety (Chronic) Left knee pain (Acute) SOB (shortness of breath) (Acute) Vitamin D deficiency (Acute) Hearing loss (Acute) Vaginal mass (Acute ~06/19/18) recurrence of endometrial cancerColon polyp (Chronic 07/12/02) adenomas polyps Endometrial cancer, grade I (Chronic 07/09/16) hysterectomy planned fro 07/15 at [facility] [place] 07/16/16 S/P HYSTERECTOMY Hyperlipidemia (Chronic 07/31/12) Hypothyroidism (Chronic 07/31/12) Obesity (Chronic 08/12/14) Obstructive sleep apnea syndrome (Chronic 07/30/11) uses CPAP Psoriasis (Chronic) Vitamin B 12 deficiency (Chronic 08/03/14) Medical History Stress [facility] [place] Cough Hyperglycemia (08/19/16) Migraine Migraine Abnormal mammogram of right breast 09/04/15 cat3[facility] 08/19/16bdominal abscess (07/29/16) Acute meniscal injury of right knee (03/13/17) UTI (urinary tract infection) Surgical History History of bilateral ligation of fallopian tubes Status post appendectomy History of bilateral tubal ligation 04/21/82S/P appendectomy 04/21/82cystectomy (~1987) uterineUterine fibroids removed (~1987) Ligation of fallopian tube (~1982) [facility], [facility] Appendectomy (~1982) Social History/Home Situation: Information gathered from daughter as patient has global aphasia. Patient resides with her daughter single-family home steps to enter. Patient utilizes FWW within home and 4 wheeled walker for community use. Patient independent with ambulation, ADLs light meal prep. Daughter provides assistance with larger meals Equipment Owned/DME: [employer], FWW Subjective: Patient with unintelligible speech ,difficulty expressing needs. Objective: [] General Observation: Female upright in bed granddaughter and daughter visiting. IV infusing left hand Mental Status: Alert and oriented to person unintelligible speech unable to follow instructions at times due to global aphasia patient noted with some automatic speech such as thank you, put that there reverts back to repetitive unintelligible speech Pain: denies ROM: [] BUE: Within normal limits BLE: Within normal limits Strength: [] BUE greater than equal to 3/5 able to move all joints against gravity patient unable to participate in resistance due to receptive aphasia BLE: Greater than equal to 3/5 patient unable to follow instructions for resistance due to receptive aphasia Sensation: Appears intact Bed Mobility/Transfers: [] Supine to sit min assist Sit to stand contact-guard assist Stand to sit contact-guard assist Bed to chair contact-guard assist with FWW Gait: Ambulated with FWW contact-guard assist 42 feet level surfaces including turns with reciprocal pattern Balance: [] Static Sitting: Normal Dynamic Sitting: Normal Static Standing: Good Dynamic Standing: Good Special Tests: [] Mobility Limitations Standardized Measure [] [facility] AM-PAC 6 clicks Basic Mobility Inpatient Short Form: [] Raw Score: 19 CMS Score: 41.77% deficit Informed Consent/Education: Patient instructed in purpose of PT consult. Assessment: Patient is a 79-year-old female with significant receptive and expressive aphasia and intermittent unintelligible speech. Due to the aphasia patient had difficulty participating in following instructions. Assessment completed with spontaneous purposeful movement including need for bathroom. Patient presents with clinical signs and symptoms consistent with current/admitting diagnoses that have resulted to mobility limitations, gait instability, generalized weakness, and impairment of motor control as demonstrated by the following impairment level findings: 1. Decreased strength to BLE major muscle groups 2. Impaired standing balance 3. Impaired functional activity tolerance 4. word finding deficits/global aphasia Impairments are contributing to the following functional limitations: 1. Inability to safely ambulate without assistive device 2. Increase completion time for mobility ADL performance 3. Increased fall risk 4. Impaired ability to perform stairs safely without assistance Patient is assessed as a moderate complexity based on the following: History: 79-year-old female with impairment level findings, functional limitations, and past medical history as indicated above Examination: Demonstrable impairment in strength, balance, and mobility level with underlying impairments and functional limitations as documented above Presentation: evolving Decision Making:moderate Goals: 1. Independent bed mobility 2. Independent transfers with FWW 3. Independent ambulation with FWW greater than 300 feet without loss of balance 4. Supervision 5 steps with rail to safely enter and exit home Plan of Care/Treatment Plan: 1-2x/day, 7 days/week x 1 week. Plan of care has been reviewed with the SENIOR POLICY ADVISOR providing the service under Physical Therapy direction. Initiate Physical Therapy intervention for strengthening, bed mobility, transfers, gait, stairs, balance training, use of assistive device. DISCHARGE RECOMMENDATIONS:Home with scheduled outpatient PT on 11/22/2024 versus acute rehab due to CVA with global aphasia TREATMENT CODE/TIME:[id number]/ [id number] Thank you for the opportunity to participate in the care of this patient. Radha West, PT [facility]
--- NOTE | 2024-11-16 10:18 | RESPIRATORY ---
Pt too confused to discuss SHAMAR diagnosis and confirm if she still has a home unit.
[2024-11-16] MEDS: Docusate Sodium 100 MG CAP 500 MG PO (10:35)
[2024-11-16] MEDS: Cyanocobalamin 500 MCG TAB 1000 MCG PO (10:36)
[2024-11-16] MEDS: Cholecalciferol (Vitamin D3) 1,000 UNIT TAB 2000 UNITS PO (10:36)
[2024-11-16] MEDS: Metoprolol CR 50 MG TABCR PO (10:36)
[2024-11-16] MEDS: Fluticasone NASAL SPRAY 16 GM BTL NS (10:52)
[2024-11-16] MEDS: Enoxaparin 40 MG/0.4 ML SYR SC ×2 (10:53→21:05)
--- NOTE | 2024-11-16 13:00 | CHAPLAIN ---
Roseann was up in the chair when I stopped to visit. Her two daughters (?) were with her. Roseann was pleasant, didn't say too much. I explained my role and offered support.
--- NOTE | 2024-11-16 14:08 | W.PALLCONSUL ---
Date of service: 11/16/24 Time of Service: 15:00 History of Present Illness Narrative: 79 year old female found down at home, brought to [facility]. Initially thought to be a UTI and given zosyn. MRI of Brain showed probable stroke. CTA showed patent vessels. Urine showed positive for e coli. Seen by speech: ssessment Profound global aphasia, receptive/expressive requiring total communication assist. Expression is characterized by occasional islands of intelligible, but inappropriate speech followed by long utterances of incomprehensible, often repetitive syllables. Unable to follow simple verbal commands or answer yes/no questions. Difficulty even with imitation for gestures or oral movements even after [id number] assist for demonstration and direct models with non-verbal communication. Per physical therapy, she did better with egocentric, contextual commands earlier this date (e.g., she had to use the bathroom, so PT asked her to get out of bed, etc, which she was able to do with demonstration, given strong egocentric need). When isolating language she has very little true comprehension. Will do best with concrete, non-verbal communication (e.g., hand her a hair brush if you want her to brush her hair). MANAGER METAL will re-evaluate for recovery to inform discharge/prognosis tomorrow, but suspect patient will benefit from intensive acute inpatient rehab such as [facility]. My history: Roseann and I are meeting with her daughter present. She is speaking word salad at I cannot make much out of what she is saying. Consults Consult date: 11/16/24 Requesting physician: Kristen Tejeda Assessment and Plan Assessment and plan (1) Advance care planning: Status: Acute (2) Acute UTI: Status: Acute (3) Dysphasia: Status: Acute Assessment and plan: Acute UTI?presently being treated with Zosyn. Await sensitivities New stroke?she will need to go to a rehab. She understands this as does her daughter. In the past when we have discussed CODE STATUS in the outpatient environment she was insistent that she was full code. I did speak with her daughter. Her daughter is very attuned to that performing CPR on her mother may be futile. She has many comorbidities. Her daughter is ready to make a decision if the need arises. Doubtful that this will take place in the next few days. I have conveyed this to [place] and case management that her daughter would be ready to make a decision if necessary. Hopefully she will improve greatly over the next few days. If not acute rehab. Will continue to follow Discussed with hospitalist staff and nursing staff [facility] All Active Problems (Updated 11/16/24 @ 20:21 by Kristen Tejeda NP) Acute CVA (cerebrovascular accident) (Acute) Advance care planning (Acute) Dysphasia (Acute) Tetanus toxoid vaccination administered at current visit (Acute) Elevated lactic acid level (Acute) Acute UTI (Acute) Foot laceration (Acute) Altered mental status (Acute) Balance disorder (Acute) Carotid artery disease (Acute) Dizziness (Acute) Atypical chest pain (Acute) Impaired glucose metabolism (Acute) History of endometrial cancer (Acute) Combined abdominal and pelvic pain (Acute) Dysuria (Acute) Infection of the breast and nipple (Acute) Yeast dermatitis (Acute) Abdominal discomfort (Acute) Fatigue (Acute) COVID-19 (Acute ~04/01/22) Back pain (Acute) Hypokalemia (Acute) Hypertension (Chronic) Anxiety (Chronic) Left knee pain (Acute) SOB (shortness of breath) (Acute) Vitamin D deficiency (Acute) Hearing loss (Acute) Vaginal mass (Acute ~06/19/18) recurrence of endometrial cancer Colon polyp (Chronic 07/12/02) adenomas polyps Endometrial cancer, grade I (Chronic 07/09/16) hysterectomy planned fro 07/[address] [facility] 07/16/16 S/P HYSTERECTOMY Hyperlipidemia (Chronic 07/31/12) Hypothyroidism (Chronic 07/31/12) Obesity (Chronic 08/12/14) Obstructive sleep apnea syndrome (Chronic 07/30/11) uses CPAP Psoriasis (Chronic) Vitamin B 12 deficiency (Chronic 08/03/14) Medical History Stress Acute UTI 12/10/22-treated at [facility], [place] Phlegm in throat Cough Hyperglycemia (08/19/16) Migraine Migraine Abnormal mammogram of right breast 09/04/15 cat3, 6month f/u scheduled at [facility] Elevated blood sugar level 08/19/16 Abdominal abscess (07/29/16) Acute meniscal injury of right knee (03/13/17) UTI (urinary tract infection) Surgical History History of bilateral ligation of fallopian tubes Status post appendectomy History of bilateral tubal ligation 04/21/82 S/P appendectomy 04/21/82 cystectomy (~1987) uterine Uterine fibroids removed (~1987) Ligation of fallopian tube (~1982) Hysterectomy, Laproscopic (07/16/16) [facility] Bilateral salpingectomy with oophorectomy (07/16/16) [facility] Appendectomy (~1982) Family History Mother , 76 Essential hypertension Heart disease Hyperlipidemia Myocardial infarction Father , 96 Essential hypertension Heart disease Hyperlipidemia Stroke Sister Essential hypertension Heart disease Stroke Brother , 59 Essential hypertension Heart disease Hyperlipidemia Brain cancer Brother Diabetes Essential hypertension Hyperlipidemia Brother Essential hypertension Brother Essential hypertension Hyperlipidemia Maternal Grandfather , 93 Heart disease Paternal Grandfather , 81 Essential hypertension Heart disease Maternal Grandmother , 54 Rheumatoid arthritis Paternal Grandmother , 80 Heart disease Social History Smoking/Tobacco Use Status: Former Tobacco Use Quit Date: 04/21/78 Tobacco: How many years used: 15 Quit status: quit date established Second Hand Exposure: Yes Smoking risk assessment performed?: Yes Alcohol Intake: current Alcohol Intake frequency: holidays/special occasions only Drug use: Never Substance use type: does not use Caregiver/Support person: No Household members: children Housing: house Communication Needs: None Do you need help understanding health information?: Never Pets and animals: No Sexually active: No Current gender identity: female What is your relationship status?: How often do you talk on the phone with friends or family?: decline to answer How often do you get together with friends or relatives?: decline to answer How often do you attend restorationist or lutheran services?: decline to answer Do you belong to any clubs or organized social groups?: decline to answer Panel score (0-1 are the most socially isolated patients): 0 What type of physical activity do you participate in: weight lifting Seatbelt use: always Drive intox or ride w/intox 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 Per PT she is a 1 assist. This may be patient's baseline as I often times had to assist her to get from chair to [facility] at [facility] She had good upper body strength. Good lower body strength. Was able to follow directions. She worked very very hard at trying to explain herself. Unfortunately I was unable to understand what she was saying Results Last Vital Signs Temp 99.3 F 11/16/24 10:39 Pulse 84 11/16/24 10:39 Resp 16 11/16/24 10:39 BP 133/57 L 11/16/24 10:39 Pulse Ox 95 11/16/24 10:39 MR Brain MPRESSION: Findings are consistent with acute on chronic ischemic disease in the brain. There are areas of restricted diffusion left side of the brain, most prominent in the left external capsule region consistent with acute ischemic event. Possibly embolic. No evidence of intracranial hemorrhage, intra or extra-axial. CTA IMPRESSION: 1. Patent carotid arteries in the neck. No hemodynamically significant stenosis. The course of both carotid arteries in the neck is medial, almost retropharyngeal. 2. Patent vertebral arteries. 3. Patent intracranial arteries. 4. Posterior cerebral arteries are fed by posterior communicating arteries on both sides of the [id number]. 5. Incidentally noted is a tiny amount of fluid in the most dependent mastoid air cells on the right side. 11/11 echo Conclusion Technically difficult study Left ventricle is normal in size wall thickness and overall systolic function. EF is 57%. No segmental wall motion abnormalities are identified Normal right ventricular size Both atria are normal in size Aortic valve sclerosis without stenosis or regurgitation Mitral annular calcification. Mild mitral regurgitation Estimated right ventricular systolic pressure is 31 mmHg Labs 11/17/24 06:30 11/17/24 06:30 Labs: Laboratory Results - last 24 hr 11/15/24 11/15/24 11/15/24 19:11 19:46 20:20 WBC 15.14 H RBC 3.73 L Hgb 11.3 Hct 34.2 L MCV 92 MCH 30.3 MCHC 33.0 RDW 14.8 H Plt Count 283 MPV 9.2 Immature Gran % 0.6 Neutrophils % 81.9 Lymphocytes % 8.4 Monocytes % 8.5 Eosinophils % 0.2 Basophils % 0.4 Nucleated RBC % 0.0 Absolute Neutrophils 12.40 H Absolute Lymphocytes 1.27 Absolute Monocytes 1.29 H Absolute Eosinophils 0.03 Absolute Basophils 0.06 APTT Cancelled 21.4 VBG Lactate 2.1 Sodium 137 Potassium 4.6 Chloride 102 Carbon Dioxide 20.2 L Anion Gap 14.8 H BUN 24 H Creatinine 1.3 H Est GFR (CKD-EPI 2020) 42.09 Glucose 108 H Calcium 10.1 Total Bilirubin 0.4 AST 83 H ALT 39 Alkaline Phosphatase 62 Creatine Kinase Troponin I 71 H* 72 H* Total Protein 8.0 Albumin 4.5 TSH Urine Color Urine Clarity Urine pH Ur Specific [place] Urine Protein Urine Ketones Urine Blood Urine Nitrite Urine Bilirubin Urine Urobilinogen Ur Leukocyte Esterase Urine RBC Urine WBC Ur Epithelial Cells Urine Crystals Urine Bacteria Urine Casts Urine Mucus Ur Culture Indicated? Urine Glucose COVID-19 Source SARS-CoV-2 (PCR) Influenza Type A (PCR) Influenza Type B (PCR) RSV (PCR) 11/15/24 11/15/24 11/15/24 20:30 22:50 22:55 WBC RBC Hgb Hct MCV MCH MCHC RDW Plt Count MPV Immature Gran % Neutrophils % Lymphocytes % Monocytes % Eosinophils % Basophils % Nucleated RBC % Absolute Neutrophils Absolute Lymphocytes Absolute Monocytes Absolute Eosinophils Absolute Basophils APTT VBG Lactate 1.8 Sodium Potassium Chloride Carbon Dioxide Anion Gap BUN Creatinine Est GFR (CKD-EPI 2020) Glucose Calcium Total Bilirubin AST ALT Alkaline Phosphatase Creatine Kinase 4128 H Troponin I Total Protein Albumin TSH Urine Color Dark Yellow Urine Clarity Clear Urine pH 5.0 Ur Specific [place] 1.015 Urine Protein 100 H Urine Ketones 15 H Urine Blood Moderate H Urine Nitrite Positive H Urine Bilirubin Negative Urine Urobilinogen 1.0 H Ur Leukocyte Esterase Small H Urine RBC 20-50 H Urine WBC >50 H Ur Epithelial Cells Rare Urine Crystals Negative Urine Bacteria Packed Urine Casts Negative Urine Mucus Negative Ur Culture Indicated? Yes Urine Glucose 100 H COVID-19 Source Nasopharynx SARS-CoV-2 (PCR) Negative Influenza Type A (PCR) Negative Influenza Type B (PCR) Negative RSV (PCR) Negative 11/16/24 07:00 WBC 9.36 RBC 3.36 L Hgb 10.1 L Hct 30.8 L MCV 92 MCH 30.1 MCHC 32.8 RDW 15.0 H Plt Count 232 MPV 8.9 Immature Gran % 0.4 Neutrophils % 77.7 Lymphocytes % 11.6 Monocytes % 8.4 Eosinophils % 1.4 Basophils % 0.5 Nucleated RBC % 0.0 Absolute Neutrophils 7.26 H Absolute Lymphocytes 1.09 L Absolute Monocytes 0.79 Absolute Eosinophils 0.13 Absolute Basophils 0.05 APTT VBG Lactate Sodium 138 Potassium 4.2 Chloride 106 Carbon Dioxide 20.8 L Anion Gap 11.2 H BUN 17 Creatinine 1.1 H Est GFR (CKD-EPI 2020) 51.43 Glucose 107 H Calcium 9.0 Total Bilirubin 0.7 AST 71 H ALT 33 Alkaline Phosphatase 57 Creatine Kinase Troponin I Total Protein 6.6 Albumin 3.6 TSH 1.43 Urine Color Urine Clarity Urine pH Ur Specific [place] Urine Protein Urine Ketones Urine Blood Urine Nitrite Urine Bilirubin Urine Urobilinogen Ur Leukocyte Esterase Urine RBC Urine WBC Ur Epithelial Cells Urine Crystals Urine Bacteria Urine Casts Urine Mucus Ur Culture Indicated? Urine Glucose COVID-19 Source SARS-CoV-2 (PCR) Influenza Type A (PCR) Influenza Type B (PCR) RSV (PCR) Time Spent Time Spent with Patient Time Spent(min): 42
--- NOTE | 2024-11-16 14:26 | W.SPSTE ---
Date of service: 11/16/24 Time of Service: 14:26 Subjective Referring physician: Kristen Tejeda NP Primary Dx & Reason for Referral: CVA, word salad (communication/cognition) Start time: 13:45 Stop time: 14:15 Total time spent: 30 min HPI & SUMMARY: Roseann is a 79 y/o F with history of HTN, SHAMAR,HLD, Endometrial cancer, Hearing loss, who was found down at home by her family and brought to ED. In the ED labwork was indicative of UTI and CT and CT angiogram were negative for acute findings. Participated in teleneurology consult in the ED and CVA was not suspected, The patient would sometimes babble incoherently but when she was redirected she could answer my questions appropriately. She appeared lethargic but was easily rousable. ... She does speak incoherently at times but this is only when she is not focused. When I have her focus on what I sayu to her she is able to answer appropriately. AMS was thought to be caused by underlying UTI with recommendation to perform MRI if no improvement. Additional concern by care providers for neurologic event raised today given continued/worsening word salad, therefore MRI was ordered. Completed this morning and indicated likely acute on chronic ischemic disease affecting left side of brain, most prominent in L external capsule. Subjective: Patient was contacted in her room, seated up to chair. She was alert, cooperative, and accepting of DISPATCHER SERVICE CHIEF into room, pleasantly confused, friendly. She is unable to provide any relevant subjective or history given her level of impairment. No family was present at time of evaluation. Nursing reports significant confusion, nonsene responses, and difficulty following most simple commands, requiring context, demonstration, naturalistic context (e.g., handing pills to patient). Objective Objective Oral motor/CN exam: No focal deficits evident at rest or in speech, though no formal CN nerve exam completed due to patient's limited ability to follow commands or imitate non-speech movements. Adequate cough strength/laryngeal sufficiency. Volitional swallow robust & timely to palpation. SWALLOW SCREEN: Cough strength/laryngeal sufficiency: WFL Volitional swallow: Appearing robust/timely [place] Swallow Test/3 oz water test: PASS Orientation/mental status/Recall - not screened given severity of language impairment Verbal expression: Responses to questions often contain real but unrelated words initially, then devolve into somewhat repetitive nonsense syllables (e.g., She wants the piddle paddle padem maddle. when responding to Where are you right now? Insight into deficits is low, she appears to be unaware that her verbal expression is impaired and without frustration. Appears to assume clinician understands her responses perfectly well. Prosody and utterance length is largely normal, despite these deficits. QAB The Quick Aphasia Battery?(QAB) was administered; the QAB is made up of eight subtests, each comprising sets of items that probe different language domains, vary in difficulty, and are scored with a graded system to maximize the informativeness of each item. From the eight subtests, eight summary measures are derived, which constitute a multidimensional profile of language function, quantifying strengths and weaknesses across core language domains. Word Comprehension: 0 Sentence Comprehension: 0 Word Finding:? 0 Grammatical Construction:? 0 Speech Motor Programmin Repetition: 0 Readin QAB Overall: 0 QAB overall score? Severity 0.00?4.99? severe 5.00?7.49? moderate 7.50?8.89? mild 8.90?10.00? no aphasia Assessment Profound global aphasia at this time, possibly evolving/worsening from initial presentation, or fluctuating, given differential report of various providers. Aphasia is both receptive and expressive requiring total communication assist. Expression is characterized by occasional islands of intelligible, but inappropriate speech followed by long utterances of incomprehensible, often repetitive syllables resembling stereotypies. Unable to follow simple verbal commands or answer yes/no questions. Frequently attempting to give verbal responses to commands (e.g., close your eyes) and appearing unable to redirect even with repetitive demonstration, gesture, etc. Difficulty even with imitation for gestures or oral movements even after [id number] assist for demonstration and direct models with non-verbal communication. Per physical therapy, she did better with egocentric, contextual commands earlier this date (e.g., she had to use the bathroom, so PT gestured for her to get out of bed, etc, which she was able to do with demonstration, given strong egocentric need). When isolating language she has very little true comprehension. Will do best with concrete, non-verbal communication (e.g., hand her a hair brush if you want her to brush her hair). Prognosis: Fair (- age, +time since onset, - severity, +family support) PLAN: DISPATCHER SERVICE CHIEF will re-evaluate as able for changes to inform discharge/prognosis in coming days, but suspect patient will benefit from intensive acute inpatient rehab such as [facility]. Will like to get further report from family especially as relates to hearing loss history, development of symptoms from initial presentation to now, baseline cognition, etc. Education provided to: RN, PT: ? [x] Results of this examination ? [x] Role of DISPATCHER SERVICE CHIEF in CVA workup, recovery ? [x] Impact of CVA on cognitive, communication, function ? [x] Basic strategy for communication Recommendations: Provide nonverbal instructions when able, utilize context and demonstration, physical objects and naturalistic stimuli. Plan 2-3x weekly for 1-2 weeks. Short Term Goals: Patient will participate in further diagnostic treatment activities to inform rehab potential and discharge recommendations.
[2024-11-16] MEDS: Clopidogrel 300 MG TAB PO (15:25)
[2024-11-16] MEDS: Aspirin 325 MG TAB PO (15:25)
[2024-11-16] MEDS: levETIRAcetam 2,000 MG in Normal Saline 100 ML 400 MG IVPB (15:30)
[2024-11-16] MEDS: Atorvastatin 40 MG TAB 80 MG PO (21:06)
[2024-11-16] MEDS: levETIRAcetam 500 MG TAB 750 MG PO (21:06)
[2024-11-16] MEDS: amLODIPine 10 MG TAB PO (21:07)
[2024-11-16] MEDS: Spironolactone 25 MG TAB PO (21:07)
[2024-11-16] MEDS: Losartan 50 MG TAB 100 MG PO (21:09)
[2024-11-16] MEDS: Mupirocin 2% Oint. 22 GM TUBE TP (21:14)
[2024-11-17] MEDS: PIPERACILLIN/TAZO 3.375 GM in Normal Saline 50 ML IVPB ×3 (00:17→16:12)
[2024-11-17 04:10] VITALS: BP 113/61; PULSE 75; RESP 20; TEMP 37.1; O2SAT 98
[2024-11-17] MEDS: Levothyroxine 25 MCG TAB PO (06:06)
[2024-11-17 06:43] LABS: Abs Immature Grans 0.04 10^3/uL (0.0-0.06); HCT 30.1 % (36.0-46.0); HGB 9.7 g/dL (11.2-15.7); Immature Grans % 0.5 %; MCH 30.1 pg (27.0-33.0); MCHC 32.2 % (32.0-36.0); MCV 94 fL (80-95); MPV 9.4 fL (8.0-11.0); Platelet Count 216 10^3/uL (130-400); RBC 3.22 10^6/uL (3.93-5.22); RDW 15.0 % (11.7-14.6); RDW-SD 51.8 fL; WBC 7.69 10^3/uL (4.4-10.8)
[2024-11-17 06:59] LABS: Anion Gap 12.0 mmol/L (3-11); BUN 13 mg/dL (7-18); CO2 21.0 mmol/L (21.0-32.0); Calcium 9.3 mg/dL (8.5-10.1); Chloride 108 mmol/L (98-107); Estimated GFR 57.66 (mL/min/1.73m2); Glucose 83 mg/dL (74-106); Magnesium 2.1 mg/dL (1.8-2.4); Potassium 4.0 mmol/L (3.5-5.1); Sodium 141 mmol/L (136-145)
[2024-11-17 07:11] VITALS: BP 132/66; PULSE 79; RESP 15; TEMP 36.8; O2SAT 97
[2024-11-17] MEDS: Normal Saline 1,000 ML 125 ML IV ×2 (07:20→20:47)
--- NOTE | 2024-11-17 09:20 | CMPROGNOTE_ITS ---
Date of service: 11/17/24 Time of Service: 09:20 Care Management Progress Note Progress Note Text Progress Note Text: Roseann was sitting up in a chair when CM met with her. She was smiling and seemed to be in good spirits, however she is still having difficulty with speech. Sheis better able to follow directions today and was able to work with PT. A referral was sent to [facility] for acute rehab at her daughter Renuka's request ([facility]). CM will follow up with a phone call tomorrow to confirm receipt of the referral and to see if they are able to accept her in transfer. Discharge Potential Discharge Needs: PCP F/U Appt Anticipated Barriers to Discharge: Bed availability Patient/Family Education Needs: Review discharge instructions, discuss Ask Me Three Transportation: Private vehicle Plan: Anticipate Roseann will be discharged home, possibly with new home health services, when medically cleared. Speech therapy has recommended acute rehab for her aphasia. A [facility] be [facility] [place] [facility] if the family is in agreement. Roseann will follow up with her PCP and plan of care and transport with family. CM will follow. Social Determinants of Health Screening Will the Patient Participate in the Screening?: Unable to obtain
[2024-11-17 11:27] VITALS: BP 134/68; PULSE 84; RESP 18; TEMP 36.9; O2SAT 98
[2024-11-17] MEDS: Aspirin 81 MG CHEW PO (13:28)
[2024-11-17] MEDS: Cholecalciferol (Vitamin D3) 1,000 UNIT TAB 2000 UNITS PO (13:28)
[2024-11-17] MEDS: Vitamin E 400 UNITS CAP PO (13:29)
[2024-11-17] MEDS: Docusate Sodium 100 MG CAP 500 MG PO (13:31)
[2024-11-17] MEDS: Mupirocin 2% Oint. 22 GM TUBE TP ×2 (13:56→20:46)
[2024-11-17] MEDS: Cyanocobalamin 500 MCG TAB 1000 MCG PO (14:02)
[2024-11-17] MEDS: Magnesium Oxide 400 MG TAB PO (14:04)
--- NOTE | 2024-11-17 14:11 | PT.INTREAT ---
PT Notes Visit Reasons: UTI/AMS Date: 11/17/2024 PRECAUTIONS: Standard Fall, Activity as tolerated. SUBJECTIVE: Pt in recliner when approached for therapy this afternoon, pt having a difficult time with verbally expressing her self but understands verbal instructions and agrees to participating with therapy this afternoon. OBJECTIVE: ? VITALS: monitored by nursing ? Therapeutic Activities 83301: Direct one-on-one instruction in dynamic activities to improve functional performance. ?? BED MOBILITY/TRANSFERS? Sit-stand: ? ?CGA ? Stand-sit: ?CGA? Bed-Chair:? CGA? Chair-bed: CGA Provided skilled cues and instruction on performance and technique throughout. Gait Training 10415: Direct one-on-one instruction and skilled instruction in: Employing an assistive device Modified weight-bearing status Movement sequencing Turning and movement with proper form Provided verbal cues for equipment management and technique Provided instruction in gait pattern Patient education regarding pacing and breathing techniques to maximize activity tolerance? GAIT? Assistive Device: ??FWW ? Weight bearing: FWB Assist: ?CGA ? Distance:?? 20' x 2, 40' x 2, 60' x 1? Deviation: ?Low step height, short step length, WBOS lateral shifts ? Neuromuscular Re-education 52619: Activities that facilitate re-education of movement balance, posture, coordination, and proprioception or kinesthetic sense, requiring skilled tactile and verbal cues Exercises/techniques: ?? Standing static 1min Standing march Standing weight shifting (multidirectional) Sit to stand with cue for hand placement? ASSESSMENT:?Pt very pleasant and willing to participate but with difficulty expressing herself. pt stayed in recliner as per nurse to administer meds after session. PLAN: Continue with balance training, global strengthening and general conditioning for improved safety, mobility and activity tolerance until pt is ready for DC. TREATMENT CODE/TIME: [id number], [id number], 25mins (1:51-2:16 pm)
[2024-11-17 15:19] VITALS: BP 129/72; PULSE 72; RESP 15; TEMP 36.8; O2SAT 97
--- NOTE | 2024-11-17 15:50 | PHA.REVIEW2 ---
Pharmacy Admission Review Admission Clinical Review Admission Pharmacy Review: Acute CVA (cerebrovascular accident) (Acute) Advance care planning (Acute) Dysphasia (Acute) Tetanus toxoid vaccination administered at current visit (Acute) Elevated lactic acid level (Acute) Acute UTI (Acute) Foot laceration (Acute) Altered mental status (Acute) Carotid artery disease (Acute) aspirin Allergy (Severe, Verified 11/09/24 09:28) HIVES NSAIDS (Non-Steroidal Anti-Inflamma Allergy (Severe, Verified 11/09/24 09:28) HIVES sulfamethoxazole (From Bactrim) Allergy (Severe, Verified 11/09/24 09:28) face swelling trimethoprim (From Bactrim) Allergy (Severe, Verified 11/09/24 09:28) face swelling latex Allergy (Intermediate, Verified 11/09/24 09:28) redness enalapril Adverse Reaction (Severe, Verified 11/09/24 09:28) SEVERE LEG PAIN clindamycin Adverse Reaction (Intermediate, Verified 11/09/24 09:28) Hives hydrochlorothiazide Adverse Reaction (Mild, Verified 11/09/24 09:28) Other (See Comment) cetirizine (From Zyrtec) Adverse Reaction (Verified 11/09/24 09:28) Knee pain lisinopril Adverse Reaction (Verified 11/09/24 09:28) cough sulfamethoxazole-trimethoprim 800-160 mg Allergy (Uncoded 11/09/24 09:28) Face gets blotchy Resuscitation Status Full Code Height 4 ft 11 in Weight 107.5 kg Pharmacy Admission Review Renal Dosing Renal Dosing: BUN 13 mg/dL (7-18) 11/17/24 06:30 Creatinine 1.0 mg/dL (0.55-1.02) 11/17/24 06:30 Medications needing adjustments: Reviewed (CrCl 47.75 mL/min, SCr decreased from 1.1) List of meds needing interventions: Current medications are okay Anticoagulation Anticoagulation: Hgb 9.7 g/dL (11.2-15.7) L 11/17/24 06:30 Hct 30.1 % (36.0-46.0) L 11/17/24 06:30 Plt Count 216 10^3/uL (130-400) 11/17/24 06:30 Creatinine 1.0 mg/dL (0.55-1.02) 11/17/24 06:30 DVT Prophylaxis: Reviewed (Hgb decreased from 10.1) Medications: Enoxaparin (40mg q12h due to BMI > 40) Relevant Labs Relevant Labs: Sodium 141 mmol/L (136-145) 11/17/24 06:30 Potassium 4.0 mmol/L (3.5-5.1) 11/17/24 06:30 Chloride 108 mmol/L (98-107) H 11/17/24 06:30 Magnesium 2.1 mg/dL (1.8-2.4) 11/17/24 06:30 Electrolytes, C-Reactive P, ESR: Reviewed Cardiac Review Cardiac Review: Troponin I 72 ng/L (<or=51) H* 11/15/24 20:20 BP, HR, EF%: Reviewed (HR and BP WNL) List meds needing interventions: Has order for amlodipine 10mg daily, losartan 100mg daily, spironolactone 25mg q12h and metoprolol XL 50mg daily QTc Review QTc: Reviewed (447 from 11/15/24) IV to PO Switch IV Medications: Reviewed (Zosyn) Home Meds Home Med List reviewed: Reviewed Relevent Home Meds Not ordered & why?: Nystatin, phenazopyridine (PRN) and potassium Current Meds Current Medication Order Review: Intervened Comments: Nursing called and ask for morning meds to be retimed as patient was not in room for most of the morning. I changed BID orders to q12h since it is already late in the afternoon. Pharmacy Antibiotic Review Relevant Labs: WBC 7.69 10^3/uL (4.4-10.8) 11/17/24 06:30 Temperature 36.8 C Temperature 36.9 C Temperature 36.8 C Temperature 37.1 C Microbiology 11/15/24 20:30 Urine Culture - Preliminary Urine - Reflex from Ua Gram negative burt 11/15/24 19:46 Blood Culture - Preliminary Blood NO GROWTH 24 HOURS 11/15/24 19:46 Blood Culture - Preliminary Blood NO GROWTH 24 HOURS Pharmacy Antibiotic Activity: C/S review and Reviewed, no change Comments: Patient is on Zosyn (renally adjusted), day 2, for UTI.
[2024-11-17] MEDS: Enoxaparin 40 MG/0.4 ML SYR SC (15:55)
[2024-11-17] MEDS: Fluticasone NASAL SPRAY 16 GM BTL NS (15:56)
[2024-11-17] MEDS: Normal Saline Flush 10 ML SYR IVP ×2 (16:01→20:46)
--- NOTE | 2024-11-17 16:41 | W.SPSTP ---
Date of service: 11/17/24 Time of Service: 15:30 Vivek Whitfield was seen in her room on med surge today. She was somnolent, up to chair, but easily rousable to voice and pleasant, cooperative, receptive to working with EVENT LIGHTING SPECIALIST. Per physical therapy who worked with her earlier, her verbal expression and comprehension is improving this date as compared to yesterday. There is also now an OT consult placed but not yet completed. Objective/Assessment/Plan Objective Treatment Techniques & Outcomes: NAMING: House (+) Comb (+) Toothbrush (-) (+ approximation witih direct model) Octopus (-) (+ with direct model) Bench (+) Palacios (-) (- with direct model) Canoe (-) (+ with direct model) Northway (-) (- with direct model) Bixby (-) (+ with phonemic cue) Hammock (-) (+ with direct model) Stethoscope (-) (+ with direct model) Unicorn (-) (+ with phonemic cue) Tripod (-) (+ with direct model) Sphynx (-) (- with direct model) Pallette (-) (+ with direct model) Total Score: 3/15 (independent) Correct given phonemic cue: 5/15 Correct given direct model: 15 How many fingers am I holding up? : 1/3 (perseverates on one) Auditory comprehension Single words/field of 2 (picture identification): +8/8 Single words/field of 6: 6/10 (at times selecting semantic distractor, at times phonemic YES/NO questions: Egocentric: 5/5 Orientation: 4/5 (answered Y to is it the beginning of October?) Arbitrary/non-contextual: 1/3 Is a horse larger than a dog? Y Will paper burn in fire? N Do you eat a banana before you peel it? Y Instructions: Simple: Look at/point to the ... 5/5 Detailed/multi-item: (e.g., tap your L shouder 3 times): 0/2 Stimulability probe for naming using picture stimuli from quick aphasia battery comprehension: Of 5 failed items, patient repeated correct item x1 given direct model. On repeat trial, she was able to repeat 2/5 independently, and 5/5 given phonemic cue. Reading aloud: Tin (+) Dough (+) Proposition (+) Inexperienced (-) The baby cries ini the night. (-) (patient reads Baby cries at night. The popular novelest realized why I'd been calling. (-) Assessment Roseann presents with improving, but still severe expressive and receptive aphasia characterized by poor word-finding, frequent perseverations, and neologistic as well as phonemic paraphasias. While comprehension is improving, she still struggles with consistent accuracy for anything beyond single-step or simple/egocentric questions. She continues to have islands of grammatical utterances of improving relevance over yesterday, but past 3-4 words tends to degrade into neologistic, nonsense syllables. Automatic, naturalistic speech is strongest, such as greetings, etc. Single word naming is emerging, with clear difficulty with 2+ syllable words as compared to 1-syllable words, as well as difficulty with less common/frequent words/objects. She demonstrates some stimulability with naming from a trained set given both phonemic cues and direct model. Her auditory comprehension is improving, she demonstrates good accuracy with single word comprehension from a field of 2, but this decreases to 60% from a field of 6 (picture identification), and she follows simple and egocentric instructions but this decreases when more arbitrary or complex questions requiring increased verbal working memory are asked. Next sessions could involve continued naming practice for functional objects (e.g., with LARK kit), probing further reading/writing skills and repetition of phrases/sentences. Continue to recommend intensive inpatient rehab for language/cognition at discharge, and recommend OT consult prior to placement to determine if she needs assistance with sequencing, neglect, etc for ADL's. If patient is unable or refuses to attend [facility], she would benefit from 2-3x weekly outpatient EVENT LIGHTING SPECIALIST services. Would not feel comfortable discharging her home without further improvement or increased supervision at this time given her current level of impairment which is very likely to affect performance with iADL's. Prognosis: Good (- age, +time since onset, + improvement since onset, +family support) Plan Plan: 2-3x weekly for 1-2 weeks. Short Term Goals: Patient will participate in further diagnostic treatment activities to inform rehab potential and discharge recommendations. Recommendations Recommendations: Ask simple, single element questions 1 step at a time. Provide written supplementation or use nonverbal communication as needed. When asking important questions regarding discharge, decisions about medical care, etc, ask multiple times to ensure comprehension, and provide written keywords to supplement comprehension. Provide nonverbal instructions when able, utilize context and demonstration, physical objects and naturalistic stimuli. Total Time Spent: 30 min (15:30-16:00)
[2024-11-17] MEDS: Metoprolol CR 50 MG TABCR PO (17:46)
--- NOTE | 2024-11-17 17:46 | PGE_ITS ---
Date of Service Date of service: 11/17/24 Time of Service: 17:46 Assessment and Plan Assessment and plan (1) Acute CVA (cerebrovascular accident): Status: Acute Assessment and plan: MRI positive for stroke Continue Plavix 75 mg daily (x 3 weeks) and aspirin 81 mg daily (continue post plavix dc) Continue Keppra 750 mg BID * EEG if not clearing - not available here this week will need wv - [facility]eneuro [facility] neuro will accept. * Echo w bubble - EF 65% no PFO * Medical Management: * Antiplatelet therapy (aspirin 81 mg daily). * Statin therapy (atorvastatin 80 mg daily). * Blood pressure management per stroke protocol. * BP control (e.g., goal SBP <140 mmHg). * Risk Factor Modification: * Tight control of HTN, DM, lipids. * Non smoker * No Afib * Rehabilitation: * PT/OT/ST evaluation. * Early mobilization. * Consider inpatient rehab based on functional status. Acute rehab recommended by Speech * Disposition Planning: * Monitor for 24?72 hours depending on stroke severity and location. * Coordinate with case management and social work. * Patient and Family Education: * Explain stroke etiology, prevention, and recovery timeline. * Discuss importance of medication adherence and lifestyle changes Palliative Care consult - see their note (2) Acute UTI: Status: Acute Assessment and plan: urine cultures gm neg rods - sensitivity pending, dc zosyn - fosfomycin 3 gm oral given; second dose in 3 days. (3) Altered mental status: Status: Acute Assessment and plan: MRI - positive stroke - word salad - speech consult, PT OT palliative care cx. (4) Dysphasia: Status: Acute Assessment and plan: Speech therapy consult - word salad, does not follow commands Will need acute rehab (5) Hyperlipidemia: Status: Chronic Assessment and plan: Continue with medical management (6) Hypertension: Status: Chronic Assessment and plan: Continue with medical management (7) Carotid artery disease: Status: Acute Assessment and plan: Stable (8) Hypothyroidism: Status: Chronic Assessment and plan: Will check a TSH for completeness 1.43 (9) Obstructive sleep apnea syndrome: Status: Chronic Assessment and plan: Patient would benefit from using her CPAP if we can get 1 from home we will see if we can supply 1. DVT prophylaxis with Lovenox Discussed with Dr Hill Exam Narrative Exam Narrative: General: Non-toxic appearance. No signs of respiratory distress. Patient is comfortable. HEENT: Normocephalic and atraumatic. Lids and lashes normal. Pupils equal, round, and reactive to light. Extraocular movements intact. Sclera anicteric. No conjunctival injection. Swelling noted in oral mucosa. Cardiovascular: Regular rate and rhythm. Normal S1 and S2. No murmurs, rubs, or gallops. Respiratory: Good air entry bilaterally. Lungs clear to auscultation. No wheezes, rales, rhonchi, or retractions. Abdomen: Soft, non-tender, non-distended. Obese. Normal bowel sounds. No rebound, guarding, or signs of peritoneal irritation. Musculoskeletal: Full range of motion in all extremities. No tenderness to palpation. No clubbing, cyanosis, or edema. Neurologic: Speech is nonsensical. Intermittently follows commands. Moves all extremities; upper extremity strength is normal. However much improved from yesterday Psychiatric: Alert and oriented. Objective Last Vital Signs Temp 36.8 C 11/17/24 15:19 Pulse 72 11/17/24 15:19 Resp 15 11/17/24 15:19 BP 129/72 11/17/24 15:19 Pulse Ox 97 11/17/24 15:19 Laboratory Results - last 24 hr 11/17/24 06:30 WBC 7.69 RBC 3.22 L Hgb 9.7 L Hct 30.1 L MCV 94 MCH 30.1 MCHC 32.2 RDW 15.0 H Plt Count 216 MPV 9.4 Immature Gran % 0.5 Neutrophils % 65.4 Lymphocytes % 21.5 Monocytes % 9.2 Eosinophils % 2.9 Basophils % 0.5 Nucleated RBC % 0.0 Absolute Neutrophils 5.03 Absolute Lymphocytes 1.65 Absolute Monocytes 0.71 Absolute Eosinophils 0.22 Absolute Basophils 0.04 Sodium 141 Potassium 4.0 Chloride 108 H Carbon Dioxide 21.0 Anion Gap 12.0 H BUN 13 Creatinine 1.0 Est GFR (CKD-EPI 2020) 57.66 Glucose 83 Calcium 9.3 Magnesium 2.1 Time Spent with Patient Time Spent with Patient: 25-34 minutes Time was spent: preparing to see the patient(eg.review tests), ordering medications,tests, procedures, referring, communicating with other health career services assistant, indepentently interpreting results, counseling the patient and care coordination
[2024-11-17] MEDS: Spironolactone 25 MG TAB PO (17:47)
[2024-11-17] MEDS: levETIRAcetam 500 MG TAB 750 MG PO (17:51)
[2024-11-17 19:33] VITALS: BP 128/60; PULSE 87; RESP 20; TEMP 36.5; O2SAT 96
[2024-11-17] MEDS: Fosfomycin Tromethamine 3 GM PACKET PO (20:45)
[2024-11-17] MEDS: Atorvastatin 40 MG TAB 80 MG PO (20:48)
[2024-11-17] MEDS: amLODIPine 10 MG TAB PO (20:48)
[2024-11-17] MEDS: Losartan 50 MG TAB 100 MG PO (20:48)
[2024-11-18] MEDS: Spironolactone 25 MG TAB PO ×2 (03:58→17:05)
[2024-11-18] MEDS: levETIRAcetam 500 MG TAB 750 MG PO ×2 (03:58→17:05)
[2024-11-18] MEDS: Enoxaparin 40 MG/0.4 ML SYR SC ×2 (03:59→17:06)
[2024-11-18 04:33] VITALS: BP 129/80; PULSE 90; RESP 18; TEMP 37; O2SAT 94
[2024-11-18] MEDS: Levothyroxine 25 MCG TAB PO (05:01)
--- NOTE | 2024-11-18 05:34 | RESPIRATORY ---
Pt has a home cpap unit at bedside, settings of cpap 12.
--- NOTE | 2024-11-18 05:54 | NUR.NOTE ---
Nursing Note: Patient was toileted by DELINQUENT TAX COLLECTION ASSISTANT x 2, unhooked the IV fluids , PICC line occluded, attempted by 2 RN's to changed drsg in aseptic technique, unable to flushed. IVFluids paused for now and will endorsed to next shift.
[2024-11-18 07:04] LABS: Abs Immature Grans 0.03 10^3/uL (0.0-0.06); HCT 34.6 % (36.0-46.0); HGB 10.9 g/dL (11.2-15.7); Immature Grans % 0.4 %; MCH 29.5 pg (27.0-33.0); MCHC 31.5 % (32.0-36.0); MCV 94 fL (80-95); MPV 9.2 fL (8.0-11.0); Platelet Count 247 10^3/uL (130-400); RBC 3.69 10^6/uL (3.93-5.22); RDW 15.0 % (11.7-14.6); RDW-SD 52.1 fL; WBC 6.68 10^3/uL (4.4-10.8)
[2024-11-18 07:17] LABS: Anion Gap 10.2 mmol/L (3-11); BUN 14 mg/dL (7-18); CO2 21.8 mmol/L (21.0-32.0); Calcium 9.4 mg/dL (8.5-10.1); Chloride 108 mmol/L (98-107); Estimated GFR 57.66 (mL/min/1.73m2); Glucose 89 mg/dL (74-106); Magnesium 1.9 mg/dL (1.8-2.4); Potassium 3.8 mmol/L (3.5-5.1); Sodium 140 mmol/L (136-145)
--- NOTE | 2024-11-18 08:00 | PCPN_ITS ---
Date of service: 11/18/24 Time of Service: 08:00 Assessment and Plan Assessment and plan (1) Acute CVA (cerebrovascular accident): Status: Acute (2) Obstructive sleep apnea syndrome: Status: Chronic (3) DNR (do not resuscitate) discussion: Status: Acute Assessment and plan: CODE STATUS?I understand that Roseann does not have full cognitive function, but when we talk about CODE STATUS she was quite clear that she did not want chest compressions and intubation. I had spoken with her daughter Kriss on Friday and again spoke with her today and Kriss was adamant that knowing how sick her mom was prior to the stroke, and knowing her mother's wishes that she would not want to be kept alive or institutionalized, she requested that Roseann's CODE STATUS be changed to DNR DNI. I have completed the COLST form. Daughter Kriss was quite upset about her mom's allergy to aspirin and aspirin being given. She had some concerns with the nurse. My understanding is the nurse is no longer working at [facility]. Kriss said all the other nurses LOG HANDLING EQUIPMENT OPERATOR's etc. have been fantastic. She feels like her mom is getting great care with the exception of the 1 nurse. I assured her that [facility] has high standard of nursing and she should expect that kind of care for her mother. Roseann will need to go to a rehab center. Hopefully that will be soon I did see that she had improved but certainly was not back to her baseline. She continues to talk but not nearly as much encircles that she had. She seemed to understand much more today Discussed with hospital team, nursing team, daughter Sleep apnea?requested daughter bring in the CPAP machine from home Subjective Subjective Interval history since last seen: Recent stroke affecting speech and cognition. Roseann feels she is talking better. Exam Narrative Exam Narrative: Roseann is talking much more linearaly. She is not repeating herself or going off on tangents as she did on Friday. I am uncertain if she remembered that I was in to see her on Friday it was a little unclear to me. Her heart was regular. She has good aeration. Her muscle strength is bilaterally symmetrical about what it was Friday. Objective Last Vital Signs Temp 98.6 F 11/18/24 04:33 Pulse 90 11/18/24 04:33 Resp 18 11/18/24 04:33 BP 129/80 11/18/24 04:33 Pulse Ox 94 11/18/24 04:33 Laboratory Results - last 24 hr 11/18/24 06:55 WBC 6.68 RBC 3.69 L Hgb 10.9 L Hct 34.6 L MCV 94 MCH 29.5 MCHC 31.5 L RDW 15.0 H Plt Count 247 MPV 9.2 Immature Gran % 0.4 Neutrophils % 62.9 Lymphocytes % 24.4 Monocytes % 7.9 Eosinophils % 3.7 Basophils % 0.7 Nucleated RBC % 0.0 Absolute Neutrophils 4.19 Absolute Lymphocytes 1.63 Absolute Monocytes 0.53 Absolute Eosinophils 0.25 Absolute Basophils 0.05 Sodium 140 Potassium 3.8 Chloride 108 H Carbon Dioxide 21.8 Anion Gap 10.2 BUN 14 Creatinine 1.0 Est GFR (CKD-EPI 2020) 57.66 Glucose 89 Calcium 9.4 Magnesium 1.9
[2024-11-18] MEDS: Aspirin 81 MG CHEW PO (08:03)
[2024-11-18] MEDS: Cholecalciferol (Vitamin D3) 1,000 UNIT TAB 2000 UNITS PO (08:03)
[2024-11-18] MEDS: Magnesium Oxide 400 MG TAB PO (08:03)
[2024-11-18] MEDS: Cyanocobalamin 500 MCG TAB 1000 MCG PO (08:03)
[2024-11-18] MEDS: Vitamin E 400 UNITS CAP PO (08:03)
[2024-11-18] MEDS: Metoprolol CR 50 MG TABCR PO (08:04)
[2024-11-18] MEDS: Mupirocin 2% Oint. 22 GM TUBE TP ×2 (08:04→20:10)
[2024-11-18 08:23] VITALS: BP 154/83; PULSE 87; RESP 16; TEMP 36.4; O2SAT 97
--- NOTE | 2024-11-18 08:58 | CMPROGNOTE_ITS ---
Date of service: 11/18/24 Time of Service: 08:58 Care Management Progress Note Progress Note Text Progress Note Text: Roseann was sitting up in a chair when CM met with her. Her Granddaughter is present and pt seems to be in good spirits again today. [facility] called this afternoon to report that Roseann does not meet criteria for inpatient rehab at their facility. She is ok with this, and reports that she feels better overall and is interested in receiving [facility] on discharge, including RN/PT/OT/EDUCATIONAL ASSISTANT and ST. She is able to speak in complete sentences and communicates clearly, although she did appear to demonstrate occasional word find difficulty during conv ersation. did appear to have difficulty with word finding a few times. CM will continue to follow. Discharge Potential Discharge Needs: PCP F/U Appt Anticipated Barriers to Discharge: None Identified Patient/Family Education Needs: Review discharge instructions, discuss Ask Me Three Transportation: Private vehicle Plan: ST recommended acute rehab for her aphasia, however pt did not meet criteria for inpatient rehab at their facility. Anticipate, Roseann will be discharged home, with new home health RN/PT/OT/EDUCATIONAL ASSISTANT and ST, when medically cleared. Roseann will follow up with her PCP and plan of care and transport with family. CM will follow. Social Determinants of Health Screening Will the Patient Participate in the Screening?: Unable to obtain
[2024-11-18 11:24] VITALS: BP 135/17; PULSE 88; RESP 16; TEMP 36.9; O2SAT 98
--- NOTE | 2024-11-18 12:01 | PT.INTREAT ---
PT Notes Visit Reasons: UTI/AMS Date: 11/18/2024 PRECAUTIONS: Standard Fall. Activity as tolerated. SUBJECTIVE: Pt in recliner when approached for therapy this morning, pt has been doing much better, able to express her self this morning, able to follow instructions. agreed to participate with therapy session. OBJECTIVE: ? PAIN: non reported VITALS: monitored by nursing ? Therapeutic Activities 53115: Direct one-on-one instruction in dynamic activities to improve functional performance. ?? BED MOBILITY/TRANSFERS? Rolling L/R: supervision Supine-sit: ? supervision? Sit-supine: ? supervision? Sit-stand: ? CGA? Stand-sit: ??CGA ? Bed-Chair:? ?CGA ? Chair-bed: CGA Provided skilled cues and instruction on performance and technique throughout. Gait Training 27748: Direct one-on-one instruction and skilled instruction in: Employing an assistive device Movement sequencing Turning and movement with proper form Provided verbal cues for equipment management and technique Provided instruction in gait pattern Patient education regarding pacing and breathing techniques to maximize activity tolerance? GAIT? Assistive Device: ?? FWW? Weight bearing: FWB Assist: ?CGA? Distance:?? 100'x2 ? Deviation: ? Low step height, short step length, WBOS lateral shifts ? ASSESSMENT:?Pt much more responsive and alert today able to express herself well PLAN: Continue with balance training, global strengthening and general conditioning for improved safety, mobility and activity tolerance until pt is ready for DC. TREATMENT CODE/TIME:
[2024-11-18] MEDS: Docusate Sodium 100 MG CAP 500 MG PO (13:22)
--- NOTE | 2024-11-18 14:37 | W.SPSTP ---
Date of service: 11/18/24 Time of Service: 01:30 Subjective Subjective: Patient received alert/awake, oriented, conversant Assessment/Impression: Roseann has demonstrated remarkable progress in her communication over the past 24 hours. She is speaking in clear, coherent sentences today with intact grammar and only intermittent anomia. Per re-assessment of the QAB, she presents today with mild anomic expressive aphasia and WFL receptive language. There is question of trace to mild receptive language vs cognitive communication deficit as evidenced by difficulty with complex comprehensive questions (eg If I was at the park when you arrived, did I get there first?) though otherwise she was able to follow instructions and conversation without issue. Roseann was able to recall and verbalize events leading up to her hospitalization and also of doing language testing with prior SLOT TAG INSERTER. She does demonstrate some difficulty with writing/spelling, though able to write at single word level generate a short sentence with mild-moderate errors. She does demonstrate some number reversals when writing/attempting to write a phone number. Roseann was tearful in moments throughout session and expressing fear of returning to severe aphasic condition; encouragement provided and this clinician also assisted her in calling her daughter. Objective: The Quick Aphasia Battery?(QAB) was administered; the QAB is made up of eight subtests, each comprising sets of items that probe different language domains, vary in difficulty, and are scored with a graded system to maximize the informativeness of each item. From the eight subtests, eight summary measures are derived, which constitute a multidimensional profile of language function, quantifying strengths and weaknesses across core language domains. Word Comprehension: 10.0 Sentence Comprehension: 5.0 Picture Naming:? 7.50 Grammatical Construction:? 7.75 Speech Motor Programmin.50 Repetition: 7.50 Readin.00 QAB Overall: 7.88, Mild Aphasia QAB overall score? Severity 0.00?4.99? severe 5.00?7.49? moderate 7.50?8.89? mild 8.90?10.00? no aphasia Plan: Frequency: 2-3x/week for 2 weeks Recommendation at Discharge: SLOT TAG INSERTER via home health services vs outpatient services Education Provided to: Patient, Nursing, Family Topics Addressed: Progress to date, POC Total Time: 50 min [id number]
[2024-11-18 14:56] VITALS: BP 129/63; PULSE 85; RESP 16; TEMP 36.2; O2SAT 96
--- NOTE | 2024-11-18 14:56 | PGE_ITS ---
Date of Service Date of service: 11/18/24 Time of Service: 14:57 Assessment and Plan Assessment and plan (1) Acute CVA (cerebrovascular accident): Status: Acute Assessment and plan: MRI positive for stroke on 11/16 Continue Plavix 75 mg daily (x 3 weeks) aspirin 81 mg daily initiated but stopped d/t allergy Ongoing Keppra 750 mg BID * EEG if not clearing - not available here this week will need [place] [facility] [place] [facility] [place]. * Echo w bubble - EF 65% no PFO * Medical Management: * Antiplatelet therapy (aspirin 81 mg daily). * Statin therapy (atorvastatin 80 mg daily). * Blood pressure management per stroke protocol. * BP control (e.g., goal SBP <140 mmHg). * Risk Factor Modification: * Tight control of HTN- permissive HTN fro 24-48 hours * DM- A1C last 5.0 - pending this stay * lipids last 2023- pending this stay * Non smoker * No Afib * Rehabilitation: * PT/OT/SPL ongoing and outpatient * Early mobilization- progressing to baseline. * Consider inpatient rehab based on functional status. * Acute rehab recommended by Speech- offer from SNF pending otherwise- will do Speech pathology * Disposition Planning: * Monitor for 24?72 hours depending on stroke severity and location. * Coordinate with case management and social work. * Patient and Family Education: * Explain stroke etiology, prevention, and recovery timeline. 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 Possibly embolic. word salad - speech consult, PT OT palliative care consult :please read notes (4) Dysphasia: Status: Acute Assessment and plan: Speech therapy consult - word salad, does not follow commands Will need acute rehab: [facility] via home health services vs outpatient services (5) Hyperlipidemia: Status: Chronic Assessment and plan: Continue with medical management with High intensity statin lipids pending (6) Hypertension: Status: Chronic Assessment and plan: Continue with medical management- permissive HTN 24-48 hours (7) Carotid artery disease: Status: Acute Assessment and plan: Stable (8) Hypothyroidism: Status: Chronic Assessment and plan: TSH 1.43 ongoing home dosing of levothryoxine (9) Obstructive sleep apnea syndrome: Status: Chronic Assessment and plan: Patient would benefit from using her CPAP if we can get 1 from home we will see if we can supply 1. DVT prophylaxis with Lovenox Discussed with Dr Crawford Subjective Subjective Patient reports: no new complaints, feels better, tolerating liquids well, tolerating a regular diet, voiding w/o difficulty and no bowel movement; denies diarrhea, nausea, vomiting, shortness of breath or fever Exam Narrative Exam Narrative: Alert and oriented X3, no focal deficit - improving expressive aphasia, clear lungs with unlabored breathing, abdomen is non-distended, soft, non-tender, no CVA tenderness, moves all 4 ext - no focal weakness Objective Last Vital Signs Temp 36.9 C 11/18/24 11:24 Pulse 88 11/18/24 11:24 Resp 16 11/18/24 11:24 BP 135/17 L 11/18/24 11:24 Pulse Ox 98 11/18/24 11:24 Laboratory Results - last 24 hr 11/15/24 11/18/24 20:30 06:55 WBC 6.68 RBC 3.69 L Hgb 10.9 L Hct 34.6 L MCV 94 MCH 29.5 MCHC 31.5 L RDW 15.0 H Plt Count 247 MPV 9.2 Immature Gran % 0.4 Neutrophils % 62.9 Lymphocytes % 24.4 Monocytes % 7.9 Eosinophils % 3.7 Basophils % 0.7 Nucleated RBC % 0.0 Absolute Neutrophils 4.19 Absolute Lymphocytes 1.63 Absolute Monocytes 0.53 Absolute Eosinophils 0.25 Absolute Basophils 0.05 Sodium 140 Potassium 3.8 Chloride 108 H Carbon Dioxide 21.8 Anion Gap 10.2 BUN 14 Creatinine 1.0 Est GFR (CKD-EPI 2020) 57.66 Glucose 89 Calcium 9.4 Magnesium 1.9 Urine Color Dark Yellow Urine Clarity Clear Urine pH 5.0 Ur Specific [place] 1.015 Urine Protein 100 H Urine Ketones 15 H Urine Blood Moderate H Urine Nitrite Positive H Urine Bilirubin Negative Urine Urobilinogen 1.0 H Ur Leukocyte Esterase Small H Urine RBC 20-50 H Urine WBC >50 H Ur Epithelial Cells Rare Urine Crystals Negative Urine Bacteria Packed Urine Casts Negative Urine Mucus Negative Ur Culture Indicated? Yes Urine Glucose 100 H Time Spent with Patient Time Spent with Patient: >50 minutes Time was spent: preparing to see the patient(eg.review tests), obtaining and/or reviewing separately otained hiistory, ordering medications,tests, procedures, referring, communicating with other health primary care physician, indepentently interpreting results, counseling the patient and care coordination
--- NOTE | 2024-11-18 15:35 | PT.INTREAT ---
PT Notes Visit Reasons: UTI/AMS Inpatient Physical Therapy Treatment Note [facility] Date:late entry for treatment session on 11/17/2024 PRECAUTIONS: Standard Fall. Activity as tolerated. SUBJECTIVE: patient able to state she is feeling better than she did yesterday. Able to express her self this morning, able to follow instructions. agreed to participate with therapy session. OBJECTIVE: ?Pt in recliner when approached for therapy this morning, ? PAIN: non reported VITALS: monitored by nursing ? Therapeutic Activities 22308: Direct one-on-one instruction in dynamic activities to improve functional performance. ?? BED MOBILITY/TRANSFERS? Sit-stand: ? CGA from chair and commode? Stand-sit: ??CGA ? from chair and commode? Commode?chair:? ?CGA with FWW? Chair-commode: CGA with FWW Facilitated ambulation with FWW 40 feet x 1 with contact-guard assist patient demonstrating ability to manage FWW within room and through doorway completing 180 degree turn. Provided skilled cues and instruction on performance and technique throughout. ASSESSMENT: Patient demonstrating increased ability to participate in ambulation with FWW. Session shortened due to need for central line placement. Patient with improved intelligibility of language however continues with word salad at times. Patient demonstrate intermittent automatic speech such as good morning you are welcome. PLAN: Continued skilled PT per plan of treatment TREATMENT CODE/TIME: 12192/1053?1106 DISCHARGE RECOMMENDATION: Acute rehab versus home with outpatient services
[2024-11-18 19:45] VITALS: BP 138/62; PULSE 82; RESP 18; TEMP 37.1; O2SAT 99
[2024-11-18] MEDS: amLODIPine 10 MG TAB PO (20:10)
[2024-11-18] MEDS: Atorvastatin 40 MG TAB 80 MG PO (20:10)
[2024-11-18] MEDS: Losartan 50 MG TAB 100 MG PO (20:10)
[2024-11-19 00:09] VITALS: BP 132/60; PULSE 85; RESP 16; TEMP 37.2; O2SAT 96
[2024-11-19] MEDS: Levothyroxine 25 MCG TAB PO (05:59)
[2024-11-19 06:04] VITALS: BP 138/72; PULSE 87; RESP 18; TEMP 37.2; O2SAT 96
[2024-11-19 06:59] LABS: Abs Immature Grans 0.04 10^3/uL (0.0-0.06); HCT 31.8 % (36.0-46.0); HGB 10.5 g/dL (11.2-15.7); Immature Grans % 0.6 %; MCH 30.7 pg (27.0-33.0); MCHC 33.0 % (32.0-36.0); MCV 93 fL (80-95); MPV 9.4 fL (8.0-11.0); Platelet Count 282 10^3/uL (130-400); RBC 3.42 10^6/uL (3.93-5.22); RDW 14.7 % (11.7-14.6); RDW-SD 50.4 fL; WBC 6.21 10^3/uL (4.4-10.8)
[2024-11-19 07:34] VITALS: BP 149/72; PULSE 77; RESP 16; TEMP 36.8; O2SAT 98
[2024-11-19 07:49] LABS: Anion Gap 12.3 mmol/L (3-11); BUN 13 mg/dL (7-18); CO2 22.7 mmol/L (21.0-32.0); Calcium 9.5 mg/dL (8.5-10.1); Chloride 106 mmol/L (98-107); Estimated GFR 57.66 (mL/min/1.73m2); Glucose 91 mg/dL (74-106); Magnesium 2.0 mg/dL (1.8-2.4); Potassium 3.8 mmol/L (3.5-5.1); Sodium 141 mmol/L (136-145)
[2024-11-19] MEDS: Docusate Sodium 100 MG CAP 500 MG PO (09:09)
[2024-11-19] MEDS: Enoxaparin 40 MG/0.4 ML SYR SC (09:09)
[2024-11-19] MEDS: Vitamin E 400 UNITS CAP PO (09:09)
[2024-11-19] MEDS: Cholecalciferol (Vitamin D3) 1,000 UNIT TAB 2000 UNITS PO (09:09)
[2024-11-19] MEDS: levETIRAcetam 500 MG TAB 750 MG PO (09:09)
[2024-11-19] MEDS: Magnesium Oxide 400 MG TAB PO (09:10)
[2024-11-19] MEDS: Normal Saline Flush 10 ML SYR IVP (09:10)
[2024-11-19] MEDS: Metoprolol CR 50 MG TABCR PO (09:10)
[2024-11-19] MEDS: Cyanocobalamin 500 MCG TAB 1000 MCG PO (09:10)
[2024-11-19] MEDS: Spironolactone 25 MG TAB PO (09:18)
[2024-11-19] MEDS: Mupirocin 2% Oint. 22 GM TUBE TP (09:19)
--- NOTE | 2024-11-19 11:04 | PT.INTREAT ---
PT Notes Visit Reasons: UTI/AMS Date: 11/19/2024 PRECAUTIONS: Standard Fall. Activity as tolerated. SUBJECTIVE: Pt in recliner when approached for therapy this morning, she states she remember the medication she has to take 4 times a day so she wrote it down. - After walking,Pt reports her left foot hurts when she walks without her shoes. She states it has been this way since she broke the bone when she was 21 yrs old. She reports the pain is only there when she is standing on it and it goes away as soon as she sits. Pt also reports she wears compression socks every day which she puts on as soon as she wwakes up while sitting at the edge of her bed OBJECTIVE: ? PAIN: noted pain in left foot after walking P VITALS: monitored by nursing ? Therapeutic Activities 47478: Direct one-on-one instruction in dynamic activities to improve functional performance. ?? BED MOBILITY/TRANSFERS? Rolling L/R: supervision Supine-sit: ? supervision? Sit-supine: ? supervision? Sit-stand: ? SBA with cues to push up ? Stand-sit: ??SBA ? Bed-Chair:? ?SBA with FWW ? Chair-bed: SBA with FWW Provided skilled cues and instruction on performance and technique throughout. ambulation: ? Assistive Device: ?? FWW? Weight bearing: FWB Assist: ?CGA? Distance:?? 100'x2 ?sit rest between ? Deviation: ? Low step height, short step length, WBOS lateral shifts , Pt struck right rear leg of walker x2 with her right foot. ? ASSESSMENT:?Progressing toward prior level of function. Pt with improved stability during standing tasks including selfcare management hair brushing and hand washing without UE support. Pt able to follow multistep instructions and object retrieval in room. Pt noted striking the right rear leg of FWW with her right foot during ambulation. Pt aware she did . This may be related to body habitus and narrow width of walker. PLAN: Continue with balance training, global strengthening and general conditioning for improved safety, mobility and activity tolerance until pt is ready for DC. TREATMENT CODE/TIME: 71477 x 24 mins / [id number] Discharge recommendations: Home with Outpatient PT if family can transport vs HHPT
[2024-11-19 11:36] VITALS: BP 172/69; PULSE 83; RESP 16; TEMP 36.7; O2SAT 97
--- NOTE | 2024-11-19 12:47 | PDOC.CMDIS ---
Date of service: 11/19/24 Time of Service: 12:47 LACE Index Scoring Tool Questions: Length of Stay (in days): 4 - 6 Was the patient admitted via the E.D.?: Yes Comorbidities: Cerebrovascular Disease and Metastatic Solid Tumor E.D. Visits: 1 Answers: Total Score: 13 Risk of Readmission: High Risk Care Management Discharge Plan Reason for Hospitalization: CVA Discharge Plan: Roseann will be discharged home with new home health services for nursing, PT, OT and speech therapy. Roseann will follow up with her PCP and plan of care and transport with family. Patient/Family Education Needs: Review discharge instructions, limitations, follow up plan and discuss Ask Me Three Services Needed at Discharge: Home Health Care Services
--- NOTE | 2024-11-19 13:10 | OT.INIE ---
Occupational Therapy Notes Inpatient Occupational Therapy Evaluation Date: 11/19/24 Referring Doctor: Dr. Crawford OT Orders: Non urgent Precautions: Fall, standard, DNR/DNI PATIENT PROFILE/ADMITTING DIAGNOSIS: Pt is a 79 year old female who was admitted to med surg for the following dx of acute CVA and dysphasia. Past Medical History: All Active Problems (Updated 11/15/24 @ 23:35 by Dequan Crawford MD) Dysphasia (Acute) Tetanus toxoid vaccination administered at current visit (Acute) Elevated lactic acid level (Acute) Acute UTI (Acute) Foot laceration (Acute) Altered mental status (Acute) Balance disorder (Acute) Carotid artery disease (Acute) Dizziness (Acute) Atypical chest pain (Acute) Impaired glucose metabolism (Acute) History of endometrial cancer (Acute) Combined abdominal and pelvic pain (Acute) Dysuria (Acute) Infection of the breast and nipple (Acute) Yeast dermatitis (Acute) Abdominal discomfort (Acute) Fatigue (Acute) COVID-19 (Acute ~04/01/22) Back pain (Acute) Hypokalemia (Acute) Hypertension (Chronic) Anxiety (Chronic) Left knee pain (Acute) SOB (shortness of breath) (Acute) Vitamin D deficiency (Acute) Hearing loss (Acute) Vaginal mass (Acute ~06/19/18) recurrence of endometrial cancerColon polyp (Chronic 07/12/02) adenomas polyps Endometrial cancer, grade I (Chronic 07/09/16) hysterectomy planned fro 07/15 at [facility] 07/16/16 S/P HYSTERECTOMY Hyperlipidemia (Chronic 07/31/12) Hypothyroidism (Chronic 07/31/12) Obesity (Chronic 08/12/14) Obstructive sleep apnea syndrome (Chronic 07/30/11) uses CPAP Psoriasis (Chronic) Vitamin B 12 deficiency (Chronic 08/03/14) Medical History Stress [facility] Cough Hyperglycemia (08/19/16) Migraine Migraine Abnormal mammogram of right breast 09/04/15 cat3, 6[facility] 08/19/16bdominal abscess (07/29/16) Acute meniscal injury of right knee (03/13/17) UTI (urinary tract infection) Surgical History History of bilateral ligation of fallopian tubes Status post appendectomy History of bilateral tubal ligation 04/21/82S/P appendectomy 04/21/82cystectomy (~1987) uterineUterine fibroids removed (~1987) Ligation of fallopian tube (~1982) [facility], [facility]16/16[facility] Appendectomy (~1982) Social History/Home Situation: Pt reports that she lives in a private home with her daughter. She notes that her daughter is able to (A) her with all of her ADLs as needed. She has a walk in shower and was (I) prior. She is alone during the day as her daughter is at work but she notes that she functions very (I) at baseline. Laundry is in the basement and she reports that her daughter will perform this. Equipment owned/DME: FWW, grab bars, has a shower seat but reports that it is not set up yet SUBJECTIVE: Pt was sitting in chair and was agreeable to consult. She notes that she feels so much better than she has over the past few days. OBJECTIVE: General Observation: Pleasant, IV in (R) UE, telemetry Mental Status: A&Ox3 Pain: no c/o pain during OT session ROM: RUE AROM WFL L UE AROM WFL STRENGTH: RUE 4/5 throughout LUE 3+/5 throughout FUNCTIONAL MOBILITY/ADLS: BATHING Pt denies she would like to perform this with her daughter when she arrives. DRESSING seated in chair Dressing UE Mod (A) don and doffing [facility] gown Dressing LE Mod (A) don and doffing (B) socks GROOMING seated in chair (I) TOILETING NT with OT but pt reports that she is able to perform this with (A) from nursing EATING seated in chair (I) with hand to mouth, appropriate grasp BALANCE: Static sitting Normal Dynamic Sitting Normal SPECIAL TESTS: Daily Activity Limitations Standardized Measure [facility] AM -PAC ?6 clicks? Daily Activity Inpatient Short Form: Raw score: 19 Standardized score: 40.22 CMS score: 42.80% INFORMED CONSENT/EDUCATION: Pt instructed in purpose of OT Consult and plan of care. ASSESSMENT: Patient is a 79-year-old female referred to occupational therapy services with diagnosis of acute CVA. Patient presents with clinical signs and symptoms consistent with dx, as demonstrated by the following impairment level findings/ functional limitations: Impairments in ADL/IADL and leisure activities, decreased functional activity tolerance, decreased LE dressing, increased performance time for ADL performance, will require (A) with LE dressing and bathing. AMPAC score 19 Patient is assessed as a Low 48489 complexity based on the following: History: see above Examination: see functional limitations as noted above Presentation: evolving Decision Making: AMPAC score 19 GOALS N/A seen for OT consult only. PLAN OF CARE/TREATMENT PLAN: Seen for OT consult only. Pt is planning to be discharged today. DISCHARGE RECOMMENDATIONS OT recommends that pt return home with OT services. TREATMENT TIME/MINUTES/CODES 67468, 03157, 20 minutes [facility] [place], [place]
[2024-11-19 13:25] LABS: Calculated LDL 68 mg/dL (<100); Cholesterol 130 mg/dL (<200); HDL Cholesterol 35 mg/dL (>or=50); Hemoglobin A1C 5.6 % (<5.7); Triglyceride 136 mg/dL (<150)
--- NOTE | 2024-11-19 13:34 | DSE_ITS ---
Date of service: 11/19/24 Time of Service: 13:35 DS: Diagnosis Discharge Diagnosis (1) Acute CVA (cerebrovascular accident): Status: Acute (2) Acute UTI: Status: Acute (3) Altered mental status: Status: Acute (4) Dysphasia: Status: Acute (5) Hyperlipidemia: Status: Chronic (6) Hypertension: Status: Chronic (7) Carotid artery disease: Status: Acute (8) Hypothyroidism: Status: Chronic (9) Obstructive sleep apnea syndrome: Status: Chronic Discharge Plan Disposition Patient Disposition: Home W/Home Health Services Condition: Improving Discharge Details Reason For Visit: UTI/AMS Admit Date/Time: 11/15/24 23:24 Admit Provider: Dequan Crawford Attending Provider: Dequan Crawford Primary Care Provider: Eve Londono [facility] Hospital Course: This 79-year-old female patient with a past medical history of hypertension, hyperlipidemia, endometrial cancer presented to the ED on 11/15/24 with family for evaluation of altered mental status. Reported to have been found down on the floor in her house. In the ED patient did have a signs and symptoms consistent with a UTI and her lab work was indicative of this as well. She was given Zosyn in the ED. A CT was done of her head as well as a CT angiogram which did not indicate any stroke like activity. Tele-neurology consultation completed with recommendation for stroke work-up, Atorvastatin 80 mg PO daily, Plavix load and daily dosing for 3 weeks and ASA loading and ongoing indefinitely. EEG also recommended if no improvement. The patient was admitted to the medical floor with telemetry for further evaluation. Aspirin discontinue due to reported allergy. MRI completed with findings of areas of restricted diffusion left side of the brain, most prominent in the left external capsule region consistent with acute ischemic event; possibly embolic as per report. The patient will be discharge home with ZIO patch/ cardiac event monitor as per tele-neuro recommendations and will have home health nursing, speech pathology, physical and occupational therapy. Urine culture grew recurrent Citrobater koseri , treatment with fosfomycin initiated, second dose due on 11/20/2024. Echocardiogram completed on 11/15/2024 w/o findings of PFO with LVEF 65%, normal RV function, w/o significant valvular disease. On the day of discharge the patient was hemodynamically stable, afebrile with improved communication over the past 24 hours. She is speaking in clear, coherent sentences today with intact grammar and barely any anomia. The patient will need a follow-up with PCP within 7 days of discharge and a neurology referral as per PCP. Discussed with Dr. Crawford Recommendations for Follow Up Recommended tests to be ordered by follow up provider: Needs a neurology referral Home Meds and New Rx's Prescriptions: New atorvastatin 40 mg Tablet 80 mg PO HS Qty: 60 0RF levetiracetam 500 mg Tablet 750 mg PO Q12H Qty: 60 0RF fosfomycin tromethamine 3 gram Packet 3 g PO ONCE Qty: 1 0RF Rx Instructions: Take on 8 AM clopidogrel [Plavix] 75 mg tablet 75 mg PO DAILY Qty: 21 0RF Continued simethicone [Gas-X Extra Strength] 125 mg capsule 125 mg PO QD-BID PRN megestrol 40 mg tablet 40 mg PO QID Qty: 120 12RF mupirocin 2 % ointment 1 applic topical BID Qty: 30 0RF docusate sodium 250 mg capsule 500 mg PO DAILY cholecalciferol (vitamin D3) 25 mcg (1,000 unit) capsule 50 mcg PO DAILY bisacodyl 5 mg tablet 5 mg PO DAILY PRN fluocinonide 0.05 % cream 1 applic topical BID PRN hydrocortisone [Aquaphor Itch Relief] 1 % ointment 1 applic topical DAILY PRN vitamin E 400 unit tablet 45 mg PO DAILY fexofenadine [Preeti] 180 MG tablet 180 mg PO DAILY Qty: 90 Rx Instructions: 1 TAB DAILY acetaminophen [Tylenol Extra Strength] 500 MG tablet 1 tab PO DAILY PRN (DME) CPAP Res Med Air Sense #10 Each See Rx Instructions .Route .MEDSUPPLY Qty: 1 0RF Rx Instructions: sleep apnea Pressure settin cyanocobalamin (vitamin B-12) [Vitamin B-12] 1,000 MCG tablet 1,000 mcg PO DAILY folic acid 400 mcg tablet 0.8 mg PO DAILY fluticasone propionate 50 mcg/actuation spray,suspension 2 spray NS DAILY Qty: 16 3RF magnesium oxide 250 mg magnesium tablet 500 mg PO DAILY hydrocortisone valerate 0.2 % cream 1 applic Topical DAILY PRN PRN (Reason: psoriasis) Qty: 60 3RF Rx Instructions: please dispense the cream instead of the previous ointment rx levothyroxine [Synthroid] 25 mcg tablet 25 mcg PO DAILY Qty: 90 4RF Rx Instructions: 1 TAB DAILY nystatin-triamcinolone 100,000-0.1 unit/g-% cream 1 applic topical BID PRN (Reason: rash) Qty: 60 1RF potassium chloride 20 mEq tablet extended release 20 meq PO DAILY Qty: 90 4RF spironolactone 25 mg tablet 25 mg PO BID Qty: 180 4RF metoprolol succinate 50 mg tablet extended release 24 hr 50 mg PO DAILY Qty: 90 4RF nystatin 100,000 unit/gram powder 1 applic topical BID Qty: 60 4RF selenium 200 mcg Tablet 200 mcg PO DAILY phenazopyridine 200 mg tablet 200 mg PO TID PRN (Reason: urinary pain) Patient Comments: TAKE 1 TABLET BY MOUTH THREE TIMES DAILY NEEDED FOR PAIN FOR 6 DOSES amlodipine 10 mg tablet 10 mg PO HS losartan 100 mg tablet 100 mg PO HS Discontinued atorvastatin 10 mg tablet 10 mg PO DAILY Qty: 90 4RF Discharge Instructions Stand Alone Forms: Nursing Discharge Form Referrals: Eve Londono MD, [place] [Primary Care Provider, Medicine] Referral Note: PCP follow-up with 7 days of discharge please. The patient will need a neurology referral as per PCP please Activity:: Activity as Tolerated Equipment/Supplies:: Walker Diet:: heart healthy Discharge Orders Discharge Orders: Discharge Order (Routine); Ordered 11/19/24 Ordered By: Bianka Simons Other Ambulatory Orders: Cardiac Event Recorder (Routine) Timeframe: 20241119 Facility: [facility] - Location: Respiratory Therapy Ordered By: Bianka Simons DS: Summary Time Spent with Patient providing and/or coordinating discharge services: Greater than 30 minutes Status at Discharge Functional status at discharge: uses cane/walker Overall status at discharge: patient is progressing back to baseline Mental Status: mental status grossly normal Speech and Movement: speech and movement normal and other (improving barely no anomia) Mood: congruent mood Affect: normal affect Exam Narrative Exam Narrative: Alert and oriented X3, no focal neurological deficit , cranial nerve II-XII intact- improving speech and anomia , clear lungs with unlabored breathing, abdomen is non-distended, soft, non-tender, no CVA tenderness, moves all 4 ext - no focal weakness Psych Mental Status: mental status grossly normal Speech and Movement: speech and movement normal and other (improving barely no anomia) Mood: congruent mood Affect: normal affect DS: Data Vitals/I&O Vitals and I&O: Vital Signs Temperature 36.7 C 11/19/24 11:36 Temperature Source Temporal Artery Scan 11/19/24 11:36 Pulse 83 11/19/24 11:36 Pulse Rhythm Regular 11/16/24 01:10 Pulse 88 11/16/24 00:20 Respiratory Rate 16 11/19/24 11:36 Respiratory Effort Normal, Non-Labored 11/16/24 01:10 Respiratory Depth Normal 11/16/24 01:10 Respiratory Pattern Normal 11/16/24 01:10 Blood Pressure 172/69 H 11/19/24 11:36 Blood Pressure Mean 103 11/19/24 11:36 Pulse Oximetry 97 11/19/24 11:36 Oxygen Delivery Method Room Air 11/19/24 11:36 Oxygen Flow Rate 0 11/19/24 11:36 Pain Level 0 11/19/24 06:04 Intake & Output 11/18/24 11/19/24 11/19/24 23:59 11:59 23:59 Intake Total 0 / 995.833 Output Total 400 / 900 250 / 250 Balance -400 / 95.833 -250 / -250 Weight 107.6 kg Intake: IV 0 / 995.833 Output: Urine 400 / 900 250 / 250 Other: Urine Color Yellow Yellow Urine Appearance Clear Clear Urine Odor Normal Normal Comment Patient used toilet independently, amount unmeasurable as patient voided into the toilet and not the hat. immeasurable void into toilet Data Completed and Pending Labs on day of discharge: Labs from last 24 hours 11/19/24 06:10 WBC 6.21 RBC 3.42 L Hgb 10.5 L Hct 31.8 L MCV 93 MCH 30.7 MCHC 33.0 RDW 14.7 H Plt Count 282 MPV 9.4 Immature Gran % 0.6 Neutrophils % 53.8 Lymphocytes % 29.0 Monocytes % 11.8 Eosinophils % 4.0 Basophils % 0.8 Nucleated RBC % 0.0 Absolute Neutrophils 3.34 Absolute Lymphocytes 1.80 Absolute Monocytes 0.73 Absolute Eosinophils 0.25 Absolute Basophils 0.05 Sodium 141 Potassium 3.8 Chloride 106 Carbon Dioxide 22.7 Anion Gap 12.3 H BUN 13 Creatinine 1.0 Est GFR (CKD-EPI 2020) 57.66 Glucose 91 Hemoglobin A1c 5.6 Calcium 9.5 Magnesium 2.0 Triglycerides 136 Total Cholesterol 130 LDL Cholesterol, Calc 68 HDL Cholesterol 35 L Preliminary micro results at discharge 11/15/24 19:46 Blood Blood Culture - Preliminary NO GROWTH 72 HOURS 11/15/24 19:46 Blood Blood Culture - Preliminary NO GROWTH 72 HOURS PFSH All Active Problems (Updated 11/18/24 @ 10:32 by Eve Londono MD, [place]) DNR (do not resuscitate) discussion (Acute) Acute CVA (cerebrovascular accident) (Acute) Advance care planning (Acute) Dysphasia (Acute) Tetanus toxoid vaccination administered at current visit (Acute) Elevated lactic acid level (Acute) Acute UTI (Acute) Foot laceration (Acute) Altered mental status (Acute) Balance disorder (Acute) Carotid artery disease (Acute) Dizziness (Acute) Atypical chest pain (Acute) Impaired glucose metabolism (Acute) History of endometrial cancer (Acute) Combined abdominal and pelvic pain (Acute) Dysuria (Acute) Infection of the breast and nipple (Acute) Yeast dermatitis (Acute) Abdominal discomfort (Acute) Fatigue (Acute) COVID-19 (Acute ~04/01/22) Back pain (Acute) Hypokalemia (Acute) Hypertension (Chronic) Anxiety (Chronic) Left knee pain (Acute) SOB (shortness of breath) (Acute) Vitamin D deficiency (Acute) Hearing loss (Acute) Vaginal mass (Acute ~06/19/18) recurrence of endometrial cancer Colon polyp (Chronic 07/12/02) adenomas polyps Endometrial cancer, grade I (Chronic 07/09/16) hysterectomy planned fro 07/15 at [facility] 07/16/16 S/P HYSTERECTOMY Hyperlipidemia (Chronic 07/31/12) Hypothyroidism (Chronic 07/31/12) Obesity (Chronic 08/12/14) Obstructive sleep apnea syndrome (Chronic 07/30/11) uses CPAP Psoriasis (Chronic) Vitamin B 12 deficiency (Chronic 08/03/14) Medical History Stress Acute UTI 12/10/22-treated at [facility], [place] Phlegm in throat Cough Hyperglycemia (08/19/16) Migraine Migraine Abnormal mammogram of right breast 09/04/15 cat3, 6month f/[place] [facility] [place] Elevated blood sugar level 08/19/16 Abdominal abscess (07/29/16) Acute meniscal injury of right knee (03/13/17) UTI (urinary tract infection) Surgical History History of bilateral ligation of fallopian tubes Status post appendectomy History of bilateral tubal ligation 04/21/82 S/P appendectomy 04/21/82 cystectomy (~1987) uterine Uterine fibroids removed (~1987) Ligation of fallopian tube (~1982) Hysterectomy, Laproscopic (07/16/16) [facility] Bilateral salpingectomy with oophorectomy (07/16/16) [facility] Appendectomy (~1982) Family History Mother , 76 Essential hypertension Heart disease Hyperlipidemia Myocardial infarction Father , 96 Essential hypertension Heart disease Hyperlipidemia Stroke Sister Essential hypertension Heart disease Stroke Brother , 59 Essential hypertension Heart disease Hyperlipidemia Brain cancer Brother Diabetes Essential hypertension Hyperlipidemia Brother Essential hypertension Brother Essential hypertension Hyperlipidemia Maternal Grandfather , 93 Heart disease Paternal Grandfather , 81 Essential hypertension Heart disease Maternal Grandmother , 54 Rheumatoid arthritis Paternal Grandmother , 80 Heart disease Social History Smoking/Tobacco Use Status: Former Tobacco Use Quit Date: 04/21/78 Tobacco: How many years used: 15 Quit status: quit date established Second Hand Exposure: Yes Smoking risk assessment performed?: Yes Alcohol Intake: current Alcohol Intake frequency: holidays/special occasions only Drug use: Never Substance use type: does not use Caregiver/Support person: No Household members: children Housing: house Communication Needs: None Do you need help understanding health information?: Never Pets and animals: No Sexually active: No Current gender identity: female What is your relationship status?: How often do you talk on the phone with friends or family?: decline to answer How often do you get together with friends or relatives?: decline to answer How often do you attend amish or hindu services?: decline to answer Do you belong to any clubs or organized social groups?: decline to answer Panel score (0-1 are the most socially isolated patients): 0 What type of physical activity do you participate in: weight lifting Seatbelt use: always Drive intox or ride w/intox 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
[2024-11-19] MEDS: Bisacodyl 5 MG TABEC PO (13:58)
--- NOTE | 2024-11-19 14:31 | PT.INNT ---
PT Notes Visit Reasons: UTI/AMS Pt politely decline participating this afternoon's session, pt expressed she is saving her energy so she is not too exhausted when her daughter gets here to take her home.
--- NOTE | 2024-11-19 15:42 | PDOC.HHF2F_ITS ---
Home Health Referral Home Health Orders Clinical synopsis of why skilled professionals are needed: This 79-year-old female patient with a past medical history of hypertension, hyperlipidemia, endometrial cancer presented to the ED on 11/15/24 with family for evaluation of altered mental status. Reported to have been found down on the floor in her house. In the ED patient did have a signs and symptoms consistent with a UTI and her lab work was indicative of this as well. She was given Zosyn in the ED. A CT was done of her head as well as a CT angiogram which did not indicate any stroke like activity. Tele-neurology consultation completed with recommendation for stroke work-up, Atorvastatin 80 mg PO daily, Plavix load and daily dosing for 3 weeks and ASA loading and ongoing indefinitely. EEG also recommended if no improvement. The patient was admitted to the medical floor with telemetry for further evaluation. Aspirin discontinue due to reported allergy. MRI completed with findings of areas of restricted diffusion left side of the brain, most prominent in the left external capsule region consistent with acute ischemic event; possibly embolic as per report. The patient will be discharge home with ZIO patch/ cardiac event monitor as per tele-neuro recommendations and will have home health nursing, speech pathology, physical and occupational therapy. Urine culture grew recurrent Citrobater koseri , treatment with fosfomycin initiated, second dose due on 11/20/2024. Echocardiogram completed on 11/15/2024 w/o findings of PFO with LVEF 65%, normal RV function, w/o significant valvular disease. On the day of discharge the patient was hemodynamically stable, afebrile with improved communication over the past 24 hours. She is speaking in clear, coherent sentences today with intact grammar and barely any anomia. The patient will need a follow-up with PCP within 7 days of discharge and a neurology referral as per PCP. Discussed with Dr. Crawford Registered Nurse: Check all that apply Instruct on new or changed medication(s)/assess compliance: Ordered Physical Therapist: Check all that apply Increase strength & endurance for safe mobility at home: Ordered To design/establish home maintenance program: Ordered Fall reduction therapy program for patient with history of frequent falls: Ordered Home safety evaluation and teaching/gait training including stair management (if applicable): Ordered Occupational Therapist: Evaluate and treat for patient unable to perform ADL/IADL/self-care: Ordered Speech Therapist: Check all that apply Speech/communication disorders: Ordered Home Bound Status Requires the aid of supportive device (check all that apply): Walker Describe why leaving home would require a considerable and taxing effort: Requires frequent rest periods Encounter Date and Reason: I certify that a FTF encounter for this patient was performed on November 19, 2024 and that such encounter was related to the primary reason the patient requires home health services. The encounter was conducted in the following manner: * By me as the certifying physician, [employer], PA or * By an inpatient physician, [employer] or PA during an inpatient stay who communicated findings to me, Certification And Authentication I certify that I composed the above information based on my clinical judgment relating to this patient's medical condition and, if applicable, clinical findings communicated to me by the NPP or inpatient physician who performed the FTF encounter. Name of Provider that will be monitoring home health services: Eve Londono
[2024-11-19] MEDS: Clopidogrel 75 MG TAB PO (16:04)
== END 2024-11-19 16:46 | disposition home health service (06) | DRG 65 ==
LOC: ER 11-16 01:02 → MS 11-16 07:08
PROVIDERS: Nurse Practitioner Family; Admitting Provider Hospitalist; Emergency Provider Emergency Medicine Emergency Medical Services; PCP Family Medicine; Responsible Provider Nurse Practitioner Acute Care; Visit Provider Hospitalist
DX: R41.82 Altered mental status, unspecified; R47.02 Dysphasia; I10 Essential (primary) hypertension; E78.5 Hyperlipidemia, unspecified; G47.33 Obstructive sleep apnea (adult) (pediatric); E03.9 Hypothyroidism, unspecified; I63.89 Other cerebral infarction; I65.29 Occlusion and stenosis of unspecified carotid artery; E87.20 Acidosis, unspecified; R07.89 Other chest pain; E87.6 Hypokalemia; F41.9 Anxiety disorder, unspecified; E55.9 Vitamin D deficiency, unspecified; E66.9 Obesity, unspecified; N39.0 Urinary tract infection, site not specified; Z68.42 Body mass index [BMI] 45.0-49.9, adult; B96.89 Other specified bacterial agents as the cause of diseases classified elsewhere; Z66 Do not resuscitate; Z88.6 Allergy status to analgesic agent; Z85.42 Personal history of malignant neoplasm of other parts of uterus; S91.311A Laceration without foreign body, right foot, initial encounter; W01.110A Fall on same level from slipping, tripping and stumbling with subsequent striking against sharp glass, initial encounter
CPT/HCPCS: 36410; 00123; 36415; 36416; 36573; 70496; 70498; 80048; 80053; 80061; 82550; 82962; 87040; 87077; 87637; 90471; 90714; 93005; 93270; 96361; 96365; 97112; 97116; 97162; 97530; 99285; J1650; 70450; 70551; 71045; 81003; 81015; 83036; 83605; 83735; 84443; 84484; 85025; 85730; 87086; 87186; 92507; 92523; 93010; 93306; 99222; 99232; 99233; 99239; G0378; J1953; J2543; J3490

== ENCOUNTER 2024-12-21 06:55 | Outpatient (CLI) | payer MEDICARE, BC, SELFPAY ==
--- NOTE | 2024-12-21 12:00 | W.CARDEVENT ---
Date of service: 12/21/24 Time of Service: 12:00 Cardiac Event Recorder Referring Provider:: Bianka Simons Indications:: Cerebral infarction Cardiac Event Note: This is a cardiac event monitor. Patient was monitored for 28 days and 14 hours Rhythm throughout was sinus with an average heart rate of 87 There were very rare isolated ventricular ectopic beats There was no atrial fibrillation, no high-grade AV block, no pauses greater than 3 seconds
== END 2024-12-21 06:56 | disposition home or self-care (01) ==
LOC: CARDOPNVT 06:55
PROVIDERS: Visit Provider Internal Medicine Cardiovascular Disease
DX: I63.9 Cerebral infarction, unspecified (principal)
CPT/HCPCS: 93272

== ENCOUNTER 2025-01-24 16:09 | Outpatient (REF) | payer MEDICARE, BC, SELFPAY | END 2025-01-24 16:10 | disposition home or self-care (01) | LOC: LBN 16:09 | PROVIDERS: Visit Provider Nurse Practitioner Gerontology | DX: G40.001 Localization-related (focal) (partial) idiopathic epilepsy and epileptic syndromes with seizures of localized onset, not intractable, with status epilepticus (principal) | CPT/HCPCS: 80177 ==